=== PATIENT | male | born 1965 | race Caucasian/White ===

== ENCOUNTER 2017-04-02 15:38 | Emergency (ER) | payer MEDICARE ==
[2017-04-02 15:52] VITALS: BP 130/75; PULSE 86; RESP 16; TEMP 98
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
[2017-04-02] MEDS ORDERED: DIPH,PERTUS(ACELL)TETVAC-LF 0.5 ML VIAL IM ONE (16:13)
== END 2017-04-02 16:56 | disposition home or self-care (01) ==
LOC: EC 15:38
DX: T24.231A Burn of second degree of right lower leg, initial encounter (principal); T31.0 Burns involving less than 10% of body surface; E11.9 Type 2 diabetes mellitus without complications; I10 Essential (primary) hypertension; F32.9 Major depressive disorder, single episode, unspecified; F17.200 Nicotine dependence, unspecified, uncomplicated; Z23 Encounter for immunization; Z79.84 Long term (current) use of oral hypoglycemic drugs; Z79.899 Other long term (current) drug therapy; Z88.5 Allergy status to narcotic agent; X19.XXXA Contact with other heat and hot substances, initial encounter
CPT/HCPCS: 16020; 90471; 90715; 99283

== ENCOUNTER → 2018-11-05 | Outpatient (CLI) | payer MEDICARE ==
[2018-11-05 17:22] LABS: HCT 34.3 % (39.0-53.0); HGB 11.1 gm/dL (13.0-17.5); MCH 26.8 pg (25.0-35.0); MCHC 32.4 g/dL (31.0-37.0); MCV 82.7 fL (80.0-100.0); Mean Platelet Volume 6.9; Platelet Count 257 k/uL (150-450); RBC 4.14 m/uL (4.30-5.90); RDW 14.9 % (11.5-15.5); WBC 9.7 k/uL (3.8-10.6)
[2018-11-05 17:39] LABS: Appearance,Urine Clear (Clear); Bacteria,Urine Rare /hpf; Bilirubin,Urine Negative (Negative); Blood,Urine Negative (Negative); Color,Urine Light Yellow; Glucose,Urine (UA) Negative (Negative); Ketones,Urine Negative (Negative); Leukocyte Esterase,Urine Negative (Negative); Nitrite,Urine Negative (Negative); PH, Urine 5.5 (5.0-8.0); Protein,Urine 1+ (Negative); RBC,Urine 1 /hpf (0-5); Specific Gravity,Urine 1.007 (1.001-1.035); Squamous Epithelial Cell,Urine <1 /hpf (0-4); Urobilinogen,Urine <2.0 mg/dL (<2.0); WBC,Urine 3 /hpf (0-5)
[2018-11-06 02:53] LABS: Albumin 4.6 g/dL (3.80-4.90); Albumin/Globulin Ratio 2.19 (1.20-2.10); Anion Gap 9.7 mmol/L (4.00-12.00); Calcium 9.1 mg/dL (8.7-10.3); Carbon Dioxide 24.3 mmol/L (21.6-31.8); Globulin 2.1 g/dL (1.6-3.3); Phosphorus 3.5 mg/dL (2.4-5.1); Potassium 4.5 mmol/L (3.5-5.5); Total Bilirubin 0.3 mg/dL (0.3-1.2); Total Protein 6.7 g/dL (6.2-8.2)
== END ==
LOC: LABWHC1 16:49
PROVIDERS: ATTEND Internal Medicine Nephrology
DX: D64.9 Anemia, unspecified (principal); E83.39 Other disorders of phosphorus metabolism; N39.0 Urinary tract infection, site not specified
CPT/HCPCS: 36415; 80053; 81001; 84100; 85027

== ENCOUNTER 2018-12-10 13:46 | Emergency (ER) | payer MEDICARE ==
[2018-12-10 13:51] VITALS: BP 164/78; PULSE 78; RESP 22; TEMP 97.5
[2018-12-10] MEDS ORDERED: NITROGLYCERIN SL TABS 0.4 MG TAB SUBLINGUAL STA (14:32)
[2018-12-10] MEDS ORDERED: GLUCAGON 1 MG/ML VIAL IVP STA (14:32)
[2018-12-10] MEDS ORDERED: LORazepam 2 MG/ML INJ IV STA (14:32)
[2018-12-10] MEDS ORDERED: ONDANSETRON 4 MG/2 ML VIAL IVP STA (14:34)
--- NOTE | 2018-12-10 14:43 | XR ---
EXAMINATION TYPE: XR chest 2V DATE OF EXAM: 12/10/2018 COMPARISON: 06/12/2014 HISTORY: Chest pain TECHNIQUE: Frontal and lateral views of the chest are obtained. 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 Cardia mediastinal silhouette is upper limits of normal in size. There is no focal air space opacity, pleural effusion, or pneumothorax seen. Mild mu ltilevel degenerative changes of the spine are noted. The osseous structures are intact. IMPRESSION: No acute cardiopulmonary process.
[2018-12-10 14:55] LABS: Albumin 3.9 g/dL (3.5-5.0); Basophils # (A) 0.1 k/uL (0-0.2); Basophils % (A) 1 %; Calcium 9.5 mg/dL (8.4-10.2); Eosinophils # (A) 0.3 k/uL (0-0.7); Eosinophils % (A) 4 %; HCT 32.5 % (39.0-53.0); HGB 10.5 gm/dL (13.0-17.5); Lymphocytes # (A) 2.5 k/uL (1.0-4.8); Lymphocytes % (A) 31 %; MCH 26.5 pg (25.0-35.0); MCHC 32.5 g/dL (31.0-37.0); MCV 81.8 fL (80.0-100.0); Magnesium 1.7 mg/dL (1.6-2.3); Mean Platelet Volume 6.2; Monocytes # (A) 0.4 k/uL (0-1.0); Monocytes % (A) 5 %; Neutrophils # (A) 4.7 k/uL (1.3-7.7); Neutrophils % (A) 58 %; Platelet Count 221 k/uL (150-450); Potassium 4.3 mmol/L (3.5-5.1); RBC 3.97 m/uL (4.30-5.90); RDW 15.2 % (11.5-15.5); Total Bilirubin 0.3 mg/dL (0.2-1.3); Total Protein 6.6 g/dL (6.3-8.2); WBC 8.1 k/uL (3.8-10.6)
[2018-12-10 14:58] LABS: INR 0.9 (<1.2); Partial Thromboplastin Time 24.2 sec (22.0-30.0); Prothrombin Time 9.9 sec (9.0-12.0)
--- NOTE | 2018-12-10 15:01 | ED ---
Abdominal Pain HPI - General Chief Complaint: Chest Pain Stated Complaint: Something stuck in band, chest pain Time Seen by Provider: 12/10/18 14:00 Source: patient Mode of arrival: ambulatory Limitations: no limitations - History of Present Illness MD Complaint: abdominal pain (Foreign body sensation in esophagus) -: hour(s) Radiation: epigastric Migration to: no migration Severity: severe Severity scale (1-10): 8 Quality: aching, fullness Consistency: constant Improves With: nothing Worsens With: eating, vomiting Associated Symptoms: nausea, vomiting - Related Data Home Medications Medication Instructions Recorded Confirmed PARoxetine HCL [Paxil] 40 mg PO DAILY 04/29/14 12/10/18 Ramipril [Altace] 5 mg PO DAILY 09/14/14 12/10/18 amLODIPine [Norvasc] 10 mg PO DAILY 09/14/14 12/10/18 HYDROcodone/APAP 10-325MG [[place] 1 tab PO Q6H PRN 08/24/16 12/10/18 10-325] Ibuprofen [Motrin] 800 mg PO Q8HR PRN 08/24/16 12/10/18 metFORMIN HCL 1,000 mg PO BID 08/24/16 12/10/18 Zolpidem [Ambien] 10 mg PO HS PRN 04/02/17 12/10/18 Allergies Allergy/AdvReac Type Severity Reaction Status Date / Time hydromorphone HCl Allergy Hallucinati Verified 12/10/18 14:16 [From Dilaudid] ons meperidine HCl [From Demerol] Allergy Unknown Verified 12/10/18 14:16 Review of Systems ROS Statement: Those systems with pertinent positive or pertinent negative responses have been documented in the HPI. ROS Other: All systems not noted in ROS Statement are negative. Past Medical History Past Medical History: Diabetes Mellitus, Hypertension Additional Past Medical History / Comment(s): gout, chronic back/hip pain History of Any Multi-Drug Resistant Organisms: None Reported Past Surgical History: Orthopedic Surgery Additional Past Surgical History / Comment(s): thymus gland removal, HIP SURGERY., lap band by bout Past Psychological History: Depression Smoking Status: Current every day smoker Past Alcohol Use History: None Reported Past Drug Use History: None Reported General Exam Limitations: no limitations General appearance: alert, in no apparent distress Head exam: Present: atraumatic, normocephalic, normal inspection Eye exam: Present: normal appearance, PERRL, EOMI. Absent: scleral icterus, conjunctival injection, periorbital swelling ENT exam: Present: normal exam, mucous membranes moist Neck exam: Present: normal inspection. Absent: tenderness, meningismus, lymphadenopathy Respiratory exam: Present: normal lung sounds bilaterally. Absent: respiratory distress, wheezes, rales, rhonchi, stridor Cardiovascular Exam: Present: regular rate, normal rhythm, normal heart sounds. Absent: systolic murmur, diastolic murmur, rubs, gallop, clicks GI/Abdominal exam: Present: soft, normal bowel sounds. Absent: distended, tenderness, guarding, rebound, rigid Extremities exam: Present: normal inspection, full ROM, normal capillary refill. Absent: tenderness, pedal edema, joint swelling, calf tenderness Back exam: Present: normal inspection Neurological exam: Present: alert, oriented X3, CN II-XII intact Psychiatric exam: Present: normal affect, normal mood Skin exam: Present: warm, dry, intact, normal color. Absent: rash Course Vital Signs 12/10/18 13:49 Temperature 97.5 F L Pulse Rate 78 Respiratory 22 Rate Blood Pressure 164/78 O2 Sat by Pulse 96 Oximetry - Reevaluation(s) Reevaluation #1: 12/10/18 15:23 Patient did pass foreign body will getting x-ray. Reevaluation #2: 12/10/18 15:24 Patient is tolerate waiting drinking water currently Medical Decision Making - Medical Decision Making 83 male the ER for evaluation of esophageal foreign body. Foreign bodies resolved and patient can be discharged - Lab Data Result diagrams: 12/10/18 14:29 12/10/18 14:29 Lab Results 12/10/18 12/10/18 12/10/18 Range/Units 14:29 14:29 14:29 WBC 8.1 (3.8-10.6) k/uL RBC 3.97 L (4.30-5.90) m/uL Hgb 10.5 L (13.0-17.5) gm/dL Hct 32.5 L (39.0-53.0) % MCV 81.8 (80.0-100.0) fL MCH 26.5 (25.0-35.0) pg MCHC 32.5 (31.0-37.0) g/dL RDW 15.2 (11.5-15.5) % Plt Count 221 (150-450) k/uL Neutrophils % 58 % Lymphocytes % 31 % Monocytes % 5 % Eosinophils % 4 % Basophils % 1 % Neutrophils # 4.7 (1.3-7.7) k/uL Lymphocytes # 2.5 (1.0-4.8) k/uL Monocytes # 0.4 (0-1.0) k/uL Eosinophils # 0.3 (0-0.7) k/uL Basophils # 0.1 (0-0.2) k/uL PT (9.0-12.0) sec INR (<1.2) APTT (22.0-30.0) sec Sodium 137 (137-145) mmol/L Potassium 4.3 (3.5-5.1) mmol/L Chloride 108 H (98-107) mmol/L Carbon Dioxide 21 L (22-30) mmol/L Anion Gap 8 mmol/L BUN 22 H (9-20) mg/dL Creatinine 1.15 (0.66-1.25) mg/dL Est GFR (CKD-EPI)AfAm 83 (>60 ml/min/1.73 sqM) Est GFR (CKD-EPI)NonAf 72 (>60 ml/min/1.73 sqM) Glucose 110 H (74-99) mg/dL Calcium 9.5 (8.4-10.2) mg/dL Magnesium 1.7 (1.6-2.3) mg/dL Total Bilirubin 0.3 (0.2-1.3) mg/dL AST 16 L (17-59) U/L ALT 36 (21-72) U/L Alkaline Phosphatase 86 (38-126) U/L Total Creatine Kinase 58 (55-170) U/L Total Protein 6.6 (6.3-8.2) g/dL Albumin 3.9 (3.5-5.0) g/dL 12/10/18 Range/Units 14:29 WBC (3.8-10.6) k/uL RBC (4.30-5.90) m/uL Hgb (13.0-17.5) gm/dL Hct (39.0-53.0) % MCV (80.0-100.0) fL MCH (25.0-35.0) pg MCHC (31.0-37.0) g/dL RDW (11.5-15.5) % Plt Count (150-450) k/uL Neutrophils % % Lymphocytes % % Monocytes % % Eosinophils % % Basophils % % Neutrophils # (1.3-7.7) k/uL Lymphocytes # (1.0-4.8) k/uL Monocytes # (0-1.0) k/uL Eosinophils # (0-0.7) k/uL Basophils # (0-0.2) k/uL PT 9.9 (9.0-12.0) sec INR 0.9 (<1.2) APTT 24.2 (22.0-30.0) sec Sodium (137-145) mmol/L Potassium (3.5-5.1) mmol/L Chloride (98-107) mmol/L Carbon Dioxide (22-30) mmol/L Anion Gap mmol/L BUN (9-20) mg/dL Creatinine (0.66-1.25) mg/dL Est GFR (CKD-EPI)AfAm (>60 ml/min/1.73 sqM) Est GFR (CKD-EPI)NonAf (>60 ml/min/1.73 sqM) Glucose (74-99) mg/dL Calcium (8.4-10.2) mg/dL Magnesium (1.6-2.3) mg/dL Total Bilirubin (0.2-1.3) mg/dL AST (17-59) U/L ALT (21-72) U/L Alkaline Phosphatase (38-126) U/L Total Creatine Kinase (55-170) U/L Total Protein (6.3-8.2) g/dL Albumin (3.5-5.0) g/dL - Radiology Data Radiology results: report reviewed (Chest x-rays negative for acute disease), image reviewed Disposition Clinical Impression: Esophageal foreign body, Acute non-ST segment elevation myocardial infarction ( STEMI) following previous myocardial infarction Disposition: HOME SELF-CARE Condition: Good Instructions (If sedation given, give patient instructions): Esophageal Foreign Body (ED) Is patient prescribed a controlled substance at d/c from ED?: No Referrals: Perez Pennington MD [Primary Care Provider] - 1-2 days
[2018-12-10 15:10] LABS: Creatine Kinase 58 U/L (55-170)
[2018-12-10 15:23] LABS: Creatine Kinase MB 0.6 ng/mL (0.0-2.4); Troponin I <0.012 ng/mL (0.000-0.034)
== END 2018-12-10 16:21 | disposition home or self-care (01) ==
LOC: EC 13:46
DX: I21.4 Non-ST elevation (NSTEMI) myocardial infarction (principal); T18.108A Unspecified foreign body in esophagus causing other injury, initial encounter; E11.9 Type 2 diabetes mellitus without complications; I10 Essential (primary) hypertension; F32.9 Major depressive disorder, single episode, unspecified; F17.200 Nicotine dependence, unspecified, uncomplicated; Z79.899 Other long term (current) drug therapy; Z79.84 Long term (current) use of oral hypoglycemic drugs; Z88.5 Allergy status to narcotic agent
CPT/HCPCS: 36415; 71046; 80053; 82550; 82553; 83735; 84484; 85025; 85610; 85730; 93005; 99285

== ENCOUNTER 2019-07-12 12:29 | Emergency (ER) | payer MEDICARE ==
[2019-07-12 12:34] VITALS: RESP 18
[2019-07-12] MEDS ORDERED: HYDROcodone/APAP 7.5-325MG 1 EACH TAB PO ONE (12:41)
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
[2019-07-12 13:14] LABS: Anisocytosis Slight; Basophils # (A) 0.1 k/uL (0-0.2); Basophils % (A) 1 %; Eosinophils # (A) 0.2 k/uL (0-0.7); Eosinophils % (A) 3 %; HCT 31.5 % (39.0-53.0); HGB 10.6 gm/dL (13.0-17.5); Lymphocytes # (A) 1.6 k/uL (1.0-4.8); Lymphocytes % (A) 24 %; MCH 27.9 pg (25.0-35.0); MCHC 33.7 g/dL (31.0-37.0); MCV 82.7 fL (80.0-100.0); Mean Platelet Volume 7.1; Monocytes # (A) 0.3 k/uL (0-1.0); Monocytes % (A) 5 %; Neutrophils # (A) 4.2 k/uL (1.3-7.7); Neutrophils % (A) 64 %; Platelet Count 197 k/uL (150-450); Poikilocytosis Slight; RBC 3.81 m/uL (4.30-5.90); RDW 16.6 % (11.5-15.5); WBC 6.6 k/uL (3.8-10.6)
[2019-07-12 13:23] LABS: African American GFR (CKD) >90 (>60 ml/min/1.73 sqM); Anion Gap 10 mmol/L; Blood Urea Nitrogen 14 mg/dL (9-20); Calcium 9.2 mg/dL (8.4-10.2); Carbon Dioxide 22 mmol/L (22-30); Chloride 106 mmol/L (98-107); Glucose 127 mg/dL (74-99); Sodium 138 mmol/L (137-145)
--- NOTE | 2019-07-12 13:38 | US ---
EXAMINATION TYPE: US venous doppler duplex LE RT DATE OF EXAM: 07/12/2019 1:20 PM COMPARISON: NONE CLINICAL HISTORY: pain. Pain and edema. SIDE PERFORMED: Right TECHNIQUE: The lower extremity deep venous system is examined utilizing real time linear array sonog stephen with graded compression, doppler sonography and color-flow sonography. VESSELS IMAGED: External Iliac Vein (EIV) Common Femoral Vein Deep Femoral Vein Greater Saphenous Vein * Femoral Vein Popliteal Vein Small Saphenous Vein * Proximal Calf Veins (* superficial vessels) Right Leg: Negative for DVT Grayscale, color doppler, spectral doppler imaging performed of the deep veins of the right lower ext remity. There is normal flow, compressibility, vascular waveforms. IMPRESSION: No sonographic evidence of deep venous thrombosis within the right lower extremity.
[2019-07-12] MEDS ORDERED: ONDANSETRON 4 MG/2 ML VIAL IVP STA (14:03)
[2019-07-12] MEDS ORDERED: cefTRIAXone IN SWFI 1,000 MG/10 ML SYRINGE IVP STA (14:03)
[2019-07-12] MEDS ORDERED: KETOROLAC 30 MG/ML 1 ML VIAL IVP STA (14:05)
[2019-07-12 14:24] VITALS: BP 118/72; PULSE 80; TEMP 97.7
== END 2019-07-12 14:30 | disposition home or self-care (01) ==
LOC: EC 12:29
DX: L03.115 Cellulitis of right lower limb (principal); I10 Essential (primary) hypertension; E11.9 Type 2 diabetes mellitus without complications; F32.9 Major depressive disorder, single episode, unspecified; F17.200 Nicotine dependence, unspecified, uncomplicated; Z88.5 Allergy status to narcotic agent; Z79.84 Long term (current) use of oral hypoglycemic drugs; Z79.899 Other long term (current) drug therapy
CPT/HCPCS: 36415; 80048; 83605; 85025; 87040; 93971; 99284; 96374; 96375 ×2; J2405; J0696; J1885

== ENCOUNTER → 2019-09-10 | Outpatient (CLI) | payer MEDICARE ==
--- NOTE | 2019-09-11 14:29 | CT ---
EXAMINATION TYPE: CT brain wo con DATE OF EXAM: 09/10/2019 COMPARISON: 08/24/2016 INDICATION: Headaches DLP: 1251 mGycm, Automated exposure control for dose reduction was used. CONTRAST: None CT of the brain is performed utilizing 3 mm thick sections through the posterior fossa and 3 mm thick sections through the remaining calvarium. Study is performed within 24 hours of arrival to the hosp [facility]. No abnormal hyperdensity is present to suggest an acute intracranial hemorrhage. No mass lesion is evident. No acute infarcts are evident. Ventricles and sulci are appropriate for the patient age. Paranasal sinuses and mastoid air cells within the [id number] are clear. IMPRESSIONS: 1. Normal CT Brain 2. No significant interval change
== END ==
LOC: RADCTMAIN 14:45
PROVIDERS: ATTEND Family Medicine
DX: G44.221 Chronic tension-type headache, intractable (principal); R26.81 Unsteadiness on feet
CPT/HCPCS: 70450

== ENCOUNTER → 2020-08-31 | Outpatient (CLI) | payer MEDICARE | END | disposition home or self-care (01) | LOC: LABWHC1 15:14 | PROVIDERS: ATTEND Family Medicine | DX: R06.02 Shortness of breath (principal); R51.9 Headache, unspecified | CPT/HCPCS: U0003; C9803 ==

== ENCOUNTER 2020-11-12 22:40 | Inpatient (IN) | payer MEDICARE ==
[2020-11-12 23:04] LABS: Glucose,Whole Blood 582 mg/dL (75-99)
[2020-11-12] MEDS ORDERED: SODIUM CHLORIDE 0.9% 1,000 ML IV STA ×2 (23:19)
--- NOTE | 2020-11-12 23:24 | ED ---
General Adult HPI - General Chief complaint: Recheck/Abnormal Lab/Rx Stated complaint: High Sugar Time Seen by Provider: 11/12/20 22:51 Source: patient, RN notes reviewed Mode of arrival: wheelchair Limitations: no limitations - History of Present Illness Initial comments: 55-year-old male with a past medical history of gout, hypertension, diabetes mellitus, multiple myeloma presents to the emergency room for high blood sugar. Patient reports he started on chemotherapy and dexamethasone today for multiple myeloma. States that afterwards he felt very tired and started to have frequent urination and increased thirst. Patient reports that he has been told he was diabetic in the past but does not take any medications for this. States that he checked his glucose at home and it was over 600, his meter just read high. Patient states that home health did bring him insulin but did not teach him how to administer this. He does not take any oral medications either for diabetes. He called his oncologist's office and Dr. Lucero recommended he come into the emergency room. His personal oncologist is Dr. Méndez. Patient has no other complaints at this time including shortness of breath, chest pain, abdominal pain, nausea or vomiting, headache, or visual changes. - Related Data Home Medications Medication Instructions Recorded Confirmed PARoxetine HCL [Paxil] 40 mg PO DAILY 04/29/14 11/12/20 amLODIPine [Norvasc] 10 mg PO DAILY 09/14/14 11/12/20 ramipriL [Altace] 5 mg PO DAILY 09/14/14 11/12/20 HYDROcodone/APAP 10-325MG [[place] 1 tab PO Q6H PRN 08/24/16 11/12/20 10-325] Ibuprofen [Motrin] 800 mg PO Q8HR PRN 08/24/16 11/12/20 Zolpidem [Ambien] 10 mg PO HS 04/02/17 11/12/20 Allergies Allergy/AdvReac Type Severity Reaction Status Date / Time hydromorphone HCl Allergy Hallucinati Verified 11/12/20 12:57 [From Dilaudid] ons meperidine HCl [From Demerol] Allergy Hallucinati Verified 11/12/20 12:57 ons Review of Systems ROS Statement: Those systems with pertinent positive or pertinent negative responses have been documented in the HPI. ROS Other: All systems not noted in ROS Statement are negative. Past Medical History Past Medical History: Cancer, Diabetes Mellitus, Hypertension Additional Past Medical History / Comment(s): gout, chronic back/hip pain, multiple mylemo History of Any Multi-Drug Resistant Organisms: None Reported Past Surgical History: Orthopedic Surgery Additional Past Surgical History / Comment(s): thymus gland removal, HIP SURGERY., lap band by boutt Past Psychological History: Depression Smoking Status: Current every day smoker Past Alcohol Use History: None Reported Past Drug Use History: None Reported General Exam Limitations: no limitations General appearance: alert Head exam: Present: atraumatic Eye exam: Present: normal appearance ENT exam: Present: normal exam, mucous membranes moist Neck exam: Present: normal inspection, full ROM. Absent: tenderness Respiratory exam: Present: normal lung sounds bilaterally. Absent: respiratory distress Cardiovascular Exam: Present: regular rate, normal rhythm, normal heart sounds GI/Abdominal exam: Present: soft. Absent: distended, tenderness Neurological exam: Present: alert Course Vital Signs 11/12/20 11/13/20 11/13/20 22:41 01:49 02:43 Temperature 98.0 F 99.1 F Pulse Rate 98 84 87 Respiratory 20 20 18 Rate Blood Pressure 168/79 132/67 121/67 O2 Sat by Pulse 97 98 97 Oximetry Medical Decision Making - Medical Decision Making Vitals are stable. CBC unremarkable. CMP does show evidence of hyperglycemia and pseudohyponatremia. Urinalysis does have 1+ ketones however gap is 13. Patient was given 3 L of fluid and insulin and did not have significant improvement and glucose. It went from 584 12/06/2015. I discussed with patient that as he does not have a history of this recommend admit for management. Patient is eventually agreeable to this. - Lab Data Result diagrams: 11/12/20 23:29 11/12/20 23:29 Lab Results 11/12/20 11/12/20 11/12/20 Range/Units 23:03 23:29 23:29 WBC 7.5 (3.8-10.6) k/uL RBC 3.52 L (4.30-5.90) m/uL Hgb 10.2 L (13.0-17.5) gm/dL Hct 29.7 L (39.0-53.0) % MCV 84.4 (80.0-100.0) fL MCH 28.9 (25.0-35.0) pg MCHC 34.3 (31.0-37.0) g/dL RDW 16.4 H (11.5-15.5) % Plt Count 214 (150-450) k/uL MPV 6.8 Neutrophils % 83 % Lymphocytes % 11 % Monocytes % 4 % Eosinophils % 1 % Basophils % 1 % Neutrophils # 6.2 (1.3-7.7) k/uL Lymphocytes # 0.8 L (1.0-4.8) k/uL Monocytes # 0.3 (0-1.0) k/uL Eosinophils # 0.1 (0-0.7) k/uL Basophils # 0.0 (0-0.2) k/uL Hypochromasia Slight Poikilocytosis Moderate Anisocytosis Slight Sodium 128 L (137-145) mmol/L Potassium 5.1 (3.5-5.1) mmol/L Chloride 100 (98-107) mmol/L Carbon Dioxide 15 L (22-30) mmol/L Anion Gap 13 mmol/L BUN 29 H (9-20) mg/dL Creatinine 1.19 (0.66-1.25) mg/dL Est GFR (CKD-EPI)AfAm 78 (>60 ml/min/1.73 sqM) Est GFR (CKD-EPI)NonAf 68 (>60 ml/min/1.73 sqM) Glucose 584 H* (74-99) mg/dL POC Glucose (mg/dL) 582 H (75-99) mg/dL POC Glu Transportation Clerk ID Trinidad Sheehan Osmolality 306 H (280-301) mosm/kg Calcium 9.3 (8.4-10.2) mg/dL Magnesium 1.9 (1.6-2.3) mg/dL Total Bilirubin 0.5 (0.2-1.3) mg/dL AST 19 (17-59) U/L ALT 20 (4-49) U/L Alkaline Phosphatase 128 H (38-126) U/L Total Protein 6.7 (6.3-8.2) g/dL Albumin 4.2 (3.5-5.0) g/dL Urine Color Urine Appearance (Clear) Urine pH (5.0-8.0) Ur Specific [place] (1.001-1.035) Urine Protein (Negative) Urine Glucose (UA) (Negative) Urine Ketones (Negative) Urine Blood (Negative) Urine Nitrite (Negative) Urine Bilirubin (Negative) Urine Urobilinogen (<2.0) mg/dL Ur Leukocyte Esterase (Negative) Acetone, Qual Negative (Negative) Coronavirus (PCR) (Not Detectd) 11/12/20 11/12/20 11/13/20 Range/Units 23:29 23:42 00:28 WBC (3.8-10.6) k/uL RBC (4.30-5.90) m/uL Hgb (13.0-17.5) gm/dL Hct (39.0-53.0) % MCV (80.0-100.0) fL MCH (25.0-35.0) pg MCHC (31.0-37.0) g/dL RDW (11.5-15.5) % Plt Count (150-450) k/uL MPV Neutrophils % % Lymphocytes % % Monocytes % % Eosinophils % % Basophils % % Neutrophils # (1.3-7.7) k/uL Lymphocytes # (1.0-4.8) k/uL Monocytes # (0-1.0) k/uL Eosinophils # (0-0.7) k/uL Basophils # (0-0.2) k/uL Hypochromasia Poikilocytosis Anisocytosis Sodium (137-145) mmol/L Potassium (3.5-5.1) mmol/L Chloride (98-107) mmol/L Carbon Dioxide (22-30) mmol/L Anion Gap mmol/L BUN (9-20) mg/dL Creatinine (0.66-1.25) mg/dL Est GFR (CKD-EPI)AfAm (>60 ml/min/1.73 sqM) Est GFR (CKD-EPI)NonAf (>60 ml/min/1.73 sqM) Glucose (74-99) mg/dL POC Glucose (mg/dL) 561 H (75-99) mg/dL POC Glu Transportation Clerk ID Janine Dacosta Osmolality (280-301) mosm/kg Calcium (8.4-10.2) mg/dL Magnesium (1.6-2.3) mg/dL Total Bilirubin (0.2-1.3) mg/dL AST (17-59) U/L ALT (4-49) U/L Alkaline Phosphatase (38-126) U/L Total Protein (6.3-8.2) g/dL Albumin (3.5-5.0) g/dL Urine Color Colorless Urine Appearance Clear (Clear) Urine pH 5.5 (5.0-8.0) Ur Specific [place] 1.022 (1.001-1.035) Urine Protein Trace H (Negative) Urine Glucose (UA) 4+ H (Negative) Urine Ketones 1+ H (Negative) Urine Blood Negative (Negative) Urine Nitrite Negative (Negative) Urine Bilirubin Negative (Negative) Urine Urobilinogen <2.0 (<2.0) mg/dL Ur Leukocyte Esterase Negative (Negative) Acetone, Qual (Negative) Coronavirus (PCR) Not Detected (Not Detectd) 11/13/20 11/13/20 Range/Units 01:38 02:39 WBC (3.8-10.6) k/uL RBC (4.30-5.90) m/uL Hgb (13.0-17.5) gm/dL Hct (39.0-53.0) % MCV (80.0-100.0) fL MCH (25.0-35.0) pg MCHC (31.0-37.0) g/dL RDW (11.5-15.5) % Plt Count (150-450) k/uL MPV Neutrophils % % Lymphocytes % % Monocytes % % Eosinophils % % Basophils % % Neutrophils # (1.3-7.7) k/uL Lymphocytes # (1.0-4.8) k/uL Monocytes # (0-1.0) k/uL Eosinophils # (0-0.7) k/uL Basophils # (0-0.2) k/uL Hypochromasia Poikilocytosis Anisocytosis Sodium (137-145) mmol/L Potassium (3.5-5.1) mmol/L Chloride (98-107) mmol/L Carbon Dioxide (22-30) mmol/L Anion Gap mmol/L BUN (9-20) mg/dL Creatinine (0.66-1.25) mg/dL Est GFR (CKD-EPI)AfAm (>60 ml/min/1.73 sqM) Est GFR (CKD-EPI)NonAf (>60 ml/min/1.73 sqM) Glucose (74-99) mg/dL POC Glucose (mg/dL) 499 H 416 H (75-99) mg/dL POC Glu Transportation Clerk ID Bambi Almanzar Brittany Osmolality (280-301) mosm/kg Calcium (8.4-10.2) mg/dL Magnesium (1.6-2.3) mg/dL Total Bilirubin (0.2-1.3) mg/dL AST (17-59) U/L ALT (4-49) U/L Alkaline Phosphatase (38-126) U/L Total Protein (6.3-8.2) g/dL Albumin (3.5-5.0) g/dL Urine Color Urine Appearance (Clear) Urine pH (5.0-8.0) Ur Specific [place] (1.001-1.035) Urine Protein (Negative) Urine Glucose (UA) (Negative) Urine Ketones (Negative) Urine Blood (Negative) Urine Nitrite (Negative) Urine Bilirubin (Negative) Urine Urobilinogen (<2.0) mg/dL Ur Leukocyte Esterase (Negative) Acetone, Qual (Negative) Coronavirus (PCR) (Not Detectd) Disposition Clinical Impression: Hyperglycemia Disposition: ADMITTED IP TO THIS HOSP Is patient prescribed a controlled substance at d/c from ED?: No Referrals: Perez Pennington MD [Primary Care Provider] - 1-2 days Time of Disposition: 03:10
[2020-11-12 23:39] LABS: Anisocytosis Slight; Basophils % (A) 1 %; Eosinophils # (A) 0.1 k/uL (0-0.7); Eosinophils % (A) 1 %; HCT 29.7 % (39.0-53.0); HGB 10.2 gm/dL (13.0-17.5); Hypochromasia Slight; Lymphocytes # (A) 0.8 k/uL (1.0-4.8); Lymphocytes % (A) 11 %; MCH 28.9 pg (25.0-35.0); MCHC 34.3 g/dL (31.0-37.0); MCV 84.4 fL (80.0-100.0); Mean Platelet Volume 6.8; Monocytes # (A) 0.3 k/uL (0-1.0); Monocytes % (A) 4 %; Neutrophils # (A) 6.2 k/uL (1.3-7.7); Neutrophils % (A) 83 %; Platelet Count 214 k/uL (150-450); Poikilocytosis Moderate; RBC 3.52 m/uL (4.30-5.90); RDW 16.4 % (11.5-15.5); WBC 7.5 k/uL (3.8-10.6)
[2020-11-12 23:57] LABS: ALT 20 U/L (4-49); AST 19 U/L (17-59); African American GFR (CKD) 78 (>60 ml/min/1.73 sqM); Albumin 4.2 g/dL (3.5-5.0); Alkaline Phosphatase 128 U/L (38-126); Anion Gap 13 mmol/L; Blood Urea Nitrogen 29 mg/dL (9-20); Calcium 9.3 mg/dL (8.4-10.2); Carbon Dioxide 15 mmol/L (22-30); Chloride 100 mmol/L (98-107); Magnesium 1.9 mg/dL (1.6-2.3); Non-African American GFR(CKD) 68 (>60 ml/min/1.73 sqM); Potassium 5.1 mmol/L (3.5-5.1); Sodium 128 mmol/L (137-145); Total Bilirubin 0.5 mg/dL (0.2-1.3); Total Protein 6.7 g/dL (6.3-8.2)
[2020-11-13 00:11] LABS: Glucose 584 mg/dL (74-99)
[2020-11-13 00:14] LABS: Appearance,Urine Clear (Clear); Bilirubin,Urine Negative (Negative); Blood,Urine Negative (Negative); Color,Urine Colorless; Glucose,Urine (UA) 4+ (Negative); Ketones,Urine 1+ (Negative); Leukocyte Esterase,Urine Negative (Negative); Nitrite,Urine Negative (Negative); PH, Urine 5.5 (5.0-8.0); Protein,Urine Trace (Negative); Specific Gravity,Urine 1.022 (1.001-1.035); Urobilinogen,Urine <2.0 mg/dL (<2.0)
[2020-11-13 00:30] LABS: Glucose,Whole Blood 561 mg/dL (75-99)
[2020-11-13] MEDS ORDERED: INSULIN REGULAR 100 UNIT/ML VIAL IV STA ×2 (00:45→01:40)
[2020-11-13 01:40] LABS: Glucose,Whole Blood 499 mg/dL (75-99)
[2020-11-13] MEDS ORDERED: INSULIN ASPART (NovoLOG) 100 UNIT/ML VIAL SQ STA (01:40)
[2020-11-13] MEDS ORDERED: SODIUM CHLORIDE 0.9% 1,000 ML IV STA (01:40)
[2020-11-13 02:40] LABS: Glucose,Whole Blood 416 mg/dL (75-99)
[2020-11-13] MEDS ORDERED: NALOXONE 0.4 MG/ML 1 ML VIAL IV PRN (03:10)
[2020-11-13 03:18] LABS: Glucose,Whole Blood 417 mg/dL (75-99)
[2020-11-13] MEDS: SODIUM CHLORIDE 0.9% 1,000 ML IV SCH ×3 (05:02→23:16)
[2020-11-13 06:54] LABS: Glucose,Whole Blood 464 mg/dL (75-99)
[2020-11-13] MEDS: INSULIN ASPART (NovoLOG) 100 UNIT/ML VIAL SQ SCH ×4 (07:51→19:26)
[2020-11-13 11:34] LABS: Glucose,Whole Blood 422 mg/dL (75-99)
[2020-11-13] MEDS ORDERED: ONDANSETRON ODT 4 MG TAB PO PRN (12:39)
--- NOTE | 2020-11-13 12:39 | P.HPIM ---
History of Present Illness H&P Date: 11/13/20 Chief Complaint: Hyperglycemia. This is a history and physical on a 55-year-ing chemotherapeutic treatment wit and has not been struggling with elevated blood s. Oncology has been counseled to. The curtis quite reluctant to continue dexamethasone. But I did advise the patient that any further treatment lizzie decrease his overall prognosis improvement or give him untoward side effects. Blood sugars in the 400s and 500s recently. Review of Systems Constitutional: Denies chills, Denies fever Eyes: denies blurred vision, denies pain Ears, nose, mouth and throat: Denies headache, Denies sore throat Cardiovascular: Denies chest pain, Denies shortness of breath Gastrointestinal: Denies abdominal pain, Denies diarrhea, Denies nausea, Denies vomiting Musculoskeletal: Denies myalgias Past Medical History Past Medical History: Cancer, Diabetes Mellitus, Hypertension Additional Past Medical History / Comment(s): gout, chronic back/L hip pain, multiple mylemo, 2012 L hip surgery History of Any Multi-Drug Resistant Organisms: None Reported Past Surgical History: Orthopedic Surgery Additional Past Surgical History / Comment(s): thymus gland removal, HIP SURGERY., lap band by domo 2009 Past Anesthesia/Blood Transfusion Reactions: No Reported Reaction Past Psychological History: Depression Smoking Status: Current every day smoker Past Alcohol Use History: None Reported Past Drug Use History: None Reported Medications and Allergies Home Medications Medication Instructions Recorded Confirmed Type PARoxetine HCL [Paxil] 40 mg PO DAILY 04/29/14 11/13/20 History amLODIPine [Norvasc] 10 mg PO DAILY 09/14/14 11/13/20 History ramipriL [Altace] 5 mg PO DAILY 09/14/14 11/13/20 History HYDROcodone/APAP 10-325MG [[place] 1 tab PO QID 08/24/16 11/13/20 History 10-325] Ibuprofen [Motrin] 800 mg PO QID 08/24/16 11/13/20 History Zolpidem [Ambien] 10 mg PO HS 04/02/17 11/13/20 History Dexamethasone [Decadron] 40 mg PO MO 11/13/20 11/13/20 History Lenalidomide [Revlimid] 25 mg PO DIRECTED 11/13/20 11/13/20 History Ondansetron [Zofran ODT] 4 mg PO Q6H PRN 11/13/20 11/13/20 History SILVER sulfADIAZINE Cream 0.0625 inch TOPICAL DAILY PRN 11/13/20 11/13/20 History [Silvadene 1% Cream] Sulfamethox-Tmp 800-160Mg [Bact[place] 1 tab PO MOWEFR 11/13/20 11/13/20 History DS 800-160 mg] Allergies Allergy/AdvReac Type Severity Reaction Status Date / Time hydromorphone HCl AdvReac Hallucinati Verified 11/13/20 07:11 [From Dilaudid] ons meperidine HCl [From Demerol] AdvReac Hallucinati Verified 11/13/20 07:11 ons Physical Exam Vitals: Vital Signs Temp Pulse Pulse Pulse Resp BP BP 11/13/20 08:00 18 11/13/20 07:58 98.4 F 91 20 136/65 11/13/20 04:15 98.7 F 90 18 144/76 11/13/20 02:43 99.1 F 87 18 121/67 11/13/20 01:49 84 20 132/67 11/12/20 22:41 98.0 F 98 20 168/79 Pulse Ox 11/13/20 08:00 11/13/20 07:58 96 11/13/20 04:15 98 11/13/20 02:43 97 11/13/20 01:49 98 11/12/20 22:41 97 Intake and Output 11/12/20 11/13/20 11/13/20 22:59 06:59 14:59 Other: Voiding Method Toilet Urinal # Voids 1 Weight 156.489 kg 156.489 kg - Constitutional General appearance: morbidly obese - EENT Eyes: no abnormal pupil - Neck Neck: no lymphadenopathy - Respiratory Respiratory: bilateral: CTA - Cardiovascular Rhythm: regular Heart sounds: normal: S1, S2 Abnormal Heart Sounds: no S3 Gallop - Gastrointestinal General gastrointestinal: soft, no tenderness - Neurologic Neurologic: CNII-XII intact - Musculoskeletal Musculoskeletal: strength equal bilaterally Results CBC & Chem 7: 11/12/20 23:29 11/12/20 23:29 Labs: Abnormal Lab Results - Last 24 Hours (Table) 11/12/20 11/12/20 11/12/20 Range/Units 23:03 23:29 23:29 RBC 3.52 L (4.30-5.90) m/uL Hgb 10.2 L (13.0-17.5) gm/dL Hct 29.7 L (39.0-53.0) % RDW 16.4 H (11.5-15.5) % Lymphocytes # 0.8 L (1.0-4.8) k/uL Sodium 128 L (137-145) mmol/L Carbon Dioxide 15 L (22-30) mmol/L BUN 29 H (9-20) mg/dL Glucose 584 H* (74-99) mg/dL POC Glucose (mg/dL) 582 H (75-99) mg/dL Osmolality 306 H (280-301) mosm/kg Alkaline Phosphatase 128 H (38-126) U/L Urine Protein (Negative) Urine Glucose (UA) (Negative) Urine Ketones (Negative) 11/12/20 11/13/20 11/13/20 Range/Units 23:42 00:28 01:38 RBC (4.30-5.90) m/uL Hgb (13.0-17.5) gm/dL Hct (39.0-53.0) % RDW (11.5-15.5) % Lymphocytes # (1.0-4.8) k/uL Sodium (137-145) mmol/L Carbon Dioxide (22-30) mmol/L BUN (9-20) mg/dL Glucose (74-99) mg/dL POC Glucose (mg/dL) 561 H 499 H (75-99) mg/dL Osmolality (280-301) mosm/kg Alkaline Phosphatase (38-126) U/L Urine Protein Trace H (Negative) Urine Glucose (UA) 4+ H (Negative) Urine Ketones 1+ H (Negative) 11/13/20 11/13/20 11/13/20 Range/Units 02:39 03:16 06:52 RBC (4.30-5.90) m/uL Hgb (13.0-17.5) gm/dL Hct (39.0-53.0) % RDW (11.5-15.5) % Lymphocytes # (1.0-4.8) k/uL Sodium (137-145) mmol/L Carbon Dioxide (22-30) mmol/L BUN (9-20) mg/dL Glucose (74-99) mg/dL POC Glucose (mg/dL) 416 H 417 H 464 H (75-99) mg/dL Osmolality (280-301) mosm/kg Alkaline Phosphatase (38-126) U/L Urine Protein (Negative) Urine Glucose (UA) (Negative) Urine Ketones (Negative) 11/13/20 Range/Units 11:32 RBC (4.30-5.90) m/uL Hgb (13.0-17.5) gm/dL Hct (39.0-53.0) % RDW (11.5-15.5) % Lymphocytes # (1.0-4.8) k/uL Sodium (137-145) mmol/L Carbon Dioxide (22-30) mmol/L BUN (9-20) mg/dL Glucose (74-99) mg/dL POC Glucose (mg/dL) 422 H (75-99) mg/dL Osmolality (280-301) mosm/kg Alkaline Phosphatase (38-126) U/L Urine Protein (Negative) Urine Glucose (UA) (Negative) Urine Ketones (Negative) Thrombosis Risk Factor Assmnt - Choose All That Apply Any of the Below Risk Factors Present?: Yes Each Factor Represents 1 point: Obesity (BMI >25) Other Risk Factors: No Other congenital or acquired thrombophilia - If yes, enter type in comment: No Thrombosis Risk Factor Assessment Total Risk Factor Score: 1 Thrombosis Risk Factor Assessment Level: Low Risk Assessment and Plan (1) Multiple myeloma Current Visit: Yes Status: Acute Code(s): C90.00 - MULTIPLE MYELOMA NOT HAVING ACHIEVED REMISSION SNOMED Code(s): 958447360 (2) Medication side effect Current Visit: Yes Status: Acute Code(s): T88.7XXA - UNSP ADVERSE EFFECT OF DRUG OR MEDICAMENT, INIT ENCNTR SNOMED Code(s): 878109863 (3) Hyperglycemia Current Visit: Yes Status: Acute Code(s): R73.9 - HYPERGLYCEMIA, UNSPECIFIED SNOMED Code(s): 19123845 (4) Obesity Current Visit: Yes Status: Acute Code(s): E66.9 - OBESITY, UNSPECIFIED SNOMED Code(s): 959335430 (5) Acute stress reaction Current Visit: Yes Status: Acute Code(s): F43.0 - ACUTE STRESS REACTION SNOMED Code(s): 07713712 Plan: I had a long discussion regarding his hyperglycemia related to dexamethasone. I told him that he should try to continue taking The steroid and we can compensate by giving . Reconcile home medications. Check CBC and CMP in the a.m. Antic48 hours Time with Patient: Greater than 30
[2020-11-13] MEDS: lisinopriL 20 MG TAB PO SCH (13:02)
[2020-11-13] MEDS: HYDROcodone/APAP 10-325MG 1 EACH TAB PO SCH ×3 (13:02→19:28)
[2020-11-13] MEDS: PARoxetine 20 MG TAB PO SCH (13:03)
[2020-11-13] MEDS: amLODIPine 10 MG TAB PO SCH (13:03)
[2020-11-13] MEDS: IBUPROFEN 800 MG TAB PO SCH ×3 (13:03→23:13)
[2020-11-13] MEDS: NON FORMULARY DRUG (Lenalidomide [Revlimid] 25 MG Capsule) PO SCH (13:04)
[2020-11-13 16:34] LABS: Glucose,Whole Blood 214 mg/dL (75-99)
--- NOTE | 2020-11-13 18:37 | P.CONS ---
History of Present Illness - Reason for Consult Consult date: 11/13/20 multiple myeloma Requesting physician: Cruz Vázquez - Chief Complaint hyperglycemia - History of Present Illness Mr. Chandler is a very pleasant male referred to Dr. Méndez for anemia, hemoglobin of 8.6, labs done 07/23/20. MCV was 84, CBC indices otherwise normal, RDW increased at 16.4%, chem panel within normal limits, blood glucose was 182. Patient had a colonoscopy 05/21, small rectal polyps removed, pathology revealed hyperplastic polyps. Patient was not on any antiplatelet agents or anticoagulation. Using ibuprofen regularly for degenerative joint disease. Patient had occasionally seen bright red blood on the toilet after bowel movements on multiple occasions. Had a colonoscopy, told he had hemorrhoids. No recollection and EGD. Workup showed a monoclonal gammopathy, M protein 0.2 g/dL. Lambda light chain 108.3. Bone marrow aspiration biopsy 09/24/20, confirmed multiple myeloma, with about 80% involvement of the bone marrow with lambda restricted plasma cells. Multiple myeloma FISH study was negative. Patient received the diagnosis 10/03/20. He was seen in the office for treatment education 10/08. Patient showed up in the office on 10/23 to discuss anxieties and fears regarding treatment. Patient showed up again in the office on 11/08 for reinforcement, he had still not started treatment. Patient started treatment 11/12/20. He took the high-dose weekly steroids. As anticipated and discussed, his blood sugar elevated. He states he had polyuria and polydipsia, no other symptoms to report. He contacted the office with his glucometer not being able to read his blood sugar, he was directed to the emergency department. His blood sugar was over 500 on admission. He is being treated. His blood sugars have come down into the 200 range now. No other c/o on a 14 point ROS Review of Systems 14 point ROS is neg except as stated in HPI Past Medical History Past Medical History: Cancer, Diabetes Mellitus, Hypertension Additional Past Medical History / Comment(s): gout, chronic back/L hip pain, multiple mylemo, 2012 L hip surgery History of Any Multi-Drug Resistant Organisms: None Reported Past Surgical History: Orthopedic Surgery Additional Past Surgical History / Comment(s): thymus gland removal, HIP SURGERY., lap band by domo 2009 Past Anesthesia/Blood Transfusion Reactions: No Reported Reaction Past Psychological History: Depression Smoking Status: Current every day smoker Past Alcohol Use History: None Reported Past Drug Use History: None Reported Medications and Allergies Home Medications Medication Instructions Recorded Confirmed Type PARoxetine HCL [Paxil] 40 mg PO DAILY 04/29/14 11/13/20 History amLODIPine [Norvasc] 10 mg PO DAILY 09/14/14 11/13/20 History ramipriL [Altace] 5 mg PO DAILY 09/14/14 11/13/20 History HYDROcodone/APAP 10-325MG [[place] 1 tab PO QID 08/24/16 11/13/20 History 10-325] Ibuprofen [Motrin] 800 mg PO QID 08/24/16 11/13/20 History Zolpidem [Ambien] 10 mg PO HS 04/02/17 11/13/20 History Dexamethasone [Decadron] 40 mg PO MO 11/13/20 11/13/20 History Lenalidomide [Revlimid] 25 mg PO DIRECTED 11/13/20 11/13/20 History Ondansetron [Zofran ODT] 4 mg PO Q6H PRN 11/13/20 11/13/20 History SILVER sulfADIAZINE Cream 0.0625 inch TOPICAL DAILY PRN 11/13/20 11/13/20 History [Silvadene 1% Cream] Sulfamethox-Tmp 800-160Mg [Bactrim 1 tab PO MOWEFR 11/13/20 11/13/20 History DS 800-160 mg] Allergies Allergy/AdvReac Type Severity Reaction Status Date / Time hydromorphone HCl AdvReac Hallucinati Verified 11/13/20 07:11 [From Dilaudid] ons meperidine HCl [From Demerol] AdvReac Hallucinati Verified 11/13/20 07:11 ons Physical Exam Vitals: Vital Signs Temp Pulse Pulse Pulse Resp BP BP 11/13/20 07:58 98.4 F 91 20 136/65 11/13/20 04:15 98.7 F 90 18 144/76 11/13/20 02:43 99.1 F 87 18 121/67 11/13/20 01:49 84 20 132/67 11/12/20 22:41 98.0 F 98 20 168/79 Pulse Ox 11/13/20 07:58 96 11/13/20 04:15 98 11/13/20 02:43 97 11/13/20 01:49 98 11/12/20 22:41 97 Intake and Output 11/12/20 11/13/20 11/13/20 22:59 06:59 14:59 Other: Voiding Method Toilet Urinal # Voids 1 Weight 156.489 kg 156.489 kg - Constitutional General appearance: cooperative, no acute distress, obese - EENT Eyes: anicteric sclerae, EOMI ENT: hearing grossly normal, normal oropharynx - Neck Neck: no lymphadenopathy - Respiratory Respiratory: bilateral: CTA - Cardiovascular Rhythm: regular Heart sounds: normal: S1, S2 Abnormal Heart Sounds: no systolic murmur, no diastolic murmur, no rub, no S3 Gallop, no S4 Gallop, no click, no other - Gastrointestinal General gastrointestinal: no absent bowel sounds, no decreased bowel sounds, no distended, no hepatomegaly, no hyperactive bowel sounds, normal bowel sounds, no organomegaly, no rigid, no scaphoid, soft, no splenomegaly, no tenderness, no umbilical hernia, no ventral hernia - Integumentary Integumentary: normal - Neurologic Neurologic: CNII-XII intact - Musculoskeletal Musculoskeletal: strength equal bilaterally - Psychiatric Psychiatric: A&O x's 3, appropriate affect, intact judgment & insight Results CBC & Chem 7: 11/12/20 23:29 11/12/20 23:29 Labs: Abnormal Lab Results - Last 24 Hours (Table) 11/12/20 11/12/20 11/12/20 Range/Units 23:03 23:29 23:29 RBC 3.52 L (4.30-5.90) m/uL Hgb 10.2 L (13.0-17.5) gm/dL Hct 29.7 L (39.0-53.0) % RDW 16.4 H (11.5-15.5) % Lymphocytes # 0.8 L (1.0-4.8) k/uL Sodium 128 L (137-145) mmol/L Carbon Dioxide 15 L (22-30) mmol/L BUN 29 H (9-20) mg/dL Glucose 584 H* (74-99) mg/dL POC Glucose (mg/dL) 582 H (75-99) mg/dL Osmolality 306 H (280-301) mosm/kg Alkaline Phosphatase 128 H (38-126) U/L Urine Protein (Negative) Urine Glucose (UA) (Negative) Urine Ketones (Negative) 11/12/20 11/13/20 11/13/20 Range/Units 23:42 00:28 01:38 RBC (4.30-5.90) m/uL Hgb (13.0-17.5) gm/dL Hct (39.0-53.0) % RDW (11.5-15.5) % Lymphocytes # (1.0-4.8) k/uL Sodium (137-145) mmol/L Carbon Dioxide (22-30) mmol/L BUN (9-20) mg/dL Glucose (74-99) mg/dL POC Glucose (mg/dL) 561 H 499 H (75-99) mg/dL Osmolality (280-301) mosm/kg Alkaline Phosphatase (38-126) U/L Urine Protein Trace H (Negative) Urine Glucose (UA) 4+ H (Negative) Urine Ketones 1+ H (Negative) 11/13/20 11/13/20 11/13/20 Range/Units 02:39 03:16 06:52 RBC (4.30-5.90) m/uL Hgb (13.0-17.5) gm/dL Hct (39.0-53.0) % RDW (11.5-15.5) % Lymphocytes # (1.0-4.8) k/uL Sodium (137-145) mmol/L Carbon Dioxide (22-30) mmol/L BUN (9-20) mg/dL Glucose (74-99) mg/dL POC Glucose (mg/dL) 416 H 417 H 464 H (75-99) mg/dL Osmolality (280-301) mosm/kg Alkaline Phosphatase (38-126) U/L Urine Protein (Negative) Urine Glucose (UA) (Negative) Urine Ketones (Negative) Assessment and Plan (1) Hyperglycemia Narrative/Plan: Secondary to steroids, high-dose, once a week. This is part of the multiple myeloma regimen. He was told to keep a diary of CBG. No one educated him on insulin. He was referred to museum educator Patient is being treated for his high blood sugar. He has referral for diabetes education. We are going to be making an outpatient referral to an cut off saw tender metal. Current Visit: Yes Status: Acute Priority: High Code(s): R73.9 - HYPERGLYCEMIA, UNSPECIFIED SNOMED Code(s): 02389482 (2) Multiple myeloma Narrative/Plan: Patient was educated on his multiple myeloma drugs over a month ago. He continued to delay treatment for multiple reasons. He was educated at that time on his uncontrolled diabetes. He was ordered a glucometer. He was referred for c/o depression, he did not return calls. Plan at this time is to control sugar and get pt DC so he can cont treatment this week. Weekly steroids will be HELD until he is seen by Endocrinology Have had ofc make referral to Endocrinology. We will confirm appt date and time so we can reinforce with pt. If pt does not show there will have to be a different discussion because his uncontrolled diabetes is going to kill him before myeloma will. Current Visit: Yes Status: Acute Priority: High Code(s): C90.00 - MULTIPLE MYELOMA NOT HAVING ACHIEVED REMISSION SNOMED Code(s): 306128747 Plan: attests: I preformed history and physical exam, developed impression and plan of care. Discussed with dictator. Agree with dictated note, documented as scribe
[2020-11-13 19:21] LABS: Glucose,Whole Blood 318 mg/dL (75-99)
[2020-11-13] MEDS ORDERED: ZOLPIDEM 10 MG TAB PO SCH (21:00)
[2020-11-13] MEDS ORDERED: ZOLPIDEM 5 MG TAB PO SCH (23:05)
[2020-11-13 23:35] LABS: Glucose,Whole Blood 202 mg/dL (75-99)
[2020-11-14] MEDS: SODIUM CHLORIDE 0.9% 1,000 ML IV SCH ×2 (03:35→13:38)
[2020-11-14 07:05] LABS: Glucose,Whole Blood 244 mg/dL (75-99)
[2020-11-14] MEDS: PARoxetine 20 MG TAB PO SCH (08:23)
[2020-11-14] MEDS: IBUPROFEN 800 MG TAB PO SCH ×4 (08:25→21:32)
[2020-11-14] MEDS: HYDROcodone/APAP 10-325MG 1 EACH TAB PO SCH ×4 (08:32→21:32)
[2020-11-14] MEDS: amLODIPine 10 MG TAB PO SCH (08:32)
[2020-11-14] MEDS: lisinopriL 20 MG TAB PO SCH (08:33)
[2020-11-14] MEDS: INSULIN ASPART (NovoLOG) 100 UNIT/ML VIAL SQ SCH ×4 (08:33→20:24)
[2020-11-14] MEDS ORDERED: SULFAMETHOX-TMP 800-160MG 1 EACH TAB PO SCH (09:00)
--- NOTE | 2020-11-14 09:33 | P.PN ---
Subjective Progress Note Date: 11/14/20 Principal diagnosis: hyperglycemia 2/2 steroids In f/u today pt has no new physical c/o. His CBG is staying in the 200's. Objective - Vital Signs Vital signs: Vital Signs Temp 98.5 F 11/14/20 07:42 Pulse 85 11/14/20 07:42 Resp 15 11/14/20 07:42 BP 135/75 11/14/20 07:42 Pulse Ox 98 11/14/20 07:42 Intake & Output 11/13/20 11/14/20 11/14/20 18:59 06:59 18:59 Intake Total 1500 Output Total 400 Balance -400 1500 Intake: Intake, IV Titration 1500 Amount Sodium Chloride 0.9% 1, 1500 000 ml @ 125 mls/hr IV . Q[facility]H [facility] Rx#:[id number] Output: Urine 400 Other: Voiding Method Toilet Urinal # Voids 1 - Constitutional General appearance: Present: cooperative, morbidly obese - EENT Eyes: Present: anicteric sclerae, EOMI ENT: Present: hearing grossly normal - Respiratory Respiratory: bilateral: CTA - Cardiovascular Heart sounds: normal: S1, S2 Abnormal Heart Sounds: Absent: systolic murmur, diastolic murmur, rub, S3 Gallop, S4 Gallop, click, other - Peripheral edema leg Peripheral Edema: bilateral: 1+ - Gastrointestinal General gastrointestinal: Present: normal bowel sounds, soft - Integumentary Integumentary: Present: normal - Neurologic Neurologic: Present: CNII-XII intact - Musculoskeletal Musculoskeletal: Present: generalized weakness, strength equal bilaterally - Psychiatric Psychiatric: Present: A&O x's 3, appropriate affect, intact judgment & insight - Labs CBC & Chem 7: 11/12/20 23:29 11/12/20 23:29 Labs: Abnormal Lab Results - Last 24 Hours (Table) 11/13/20 11/13/20 11/13/20 Range/Units 11:32 16:31 19:20 POC Glucose (mg/dL) 422 H 214 H 318 H (75-99) mg/dL 11/13/20 11/14/20 Range/Units 23:33 07:04 POC Glucose (mg/dL) 202 H 244 H (75-99) mg/dL Assessment and Plan (1) Hyperglycemia Narrative/Plan: Secondary to steroids, high-dose, once a week. This is part of the multiple myeloma regimen. Consult Dietitian and adult educator. Has appt with Endocrinology tomorrow at 2pm-hopefully he is ready for discharge. Current Visit: Yes Status: Acute Priority: High Code(s): R73.9 - HYPERGLYCEMIA, UNSPECIFIED SNOMED Code(s): 79581416 (2) Multiple myeloma Narrative/Plan: Patient was educated on his multiple myeloma drugs over a month ago. He continued to delay treatment for multiple reasons. He was educated at that time on his uncontrolled diabetes. He was ordered a glucometer. He was referred for c/o depression. States he did speak with someone at [facility]. Plan at this time is to control sugar and get pt DC so he can cont treatment this week. Weekly dex will be HELD until he has a plan developed with Endocrinology and is handling insulin administration Current Visit: Yes Status: Acute Priority: High Code(s): C90.00 - MULTIPLE MYELOMA NOT HAVING ACHIEVED REMISSION SNOMED Code(s): 261939343 Plan: attests: I preformed history and physical exam, developed impression and plan of care. Discussed with dictator. Agree with dictated note, documented as scribe Time with Patient: Greater than 30 (counseling and coordinating care)
[2020-11-14 10:08] LABS: African American GFR (CKD) 77.3 (60.0-200.0); Albumin/Globulin Ratio 2.67 (1.60-3.17); Anion Gap 7.1 mmol/L (4.00-12.00); BUN/Creat Ratio 26.67 Ratio (12.00-20.00); Carbon Dioxide 20.9 mmol/L (21.6-31.8); Globulin 1.5 g/dL (1.6-3.3); Non-African American GFR(CKD) 66.7 (60.0-200.0); Potassium 4.3 mmol/L (3.5-5.5); Total Bilirubin 0.2 mg/dL (0.2-1.2); Total Protein 5.5 g/dL (6.2-8.2)
[2020-11-14 11:35] LABS: Glucose,Whole Blood 326 mg/dL (75-99)
[2020-11-14] MEDS: Lenalidomide [Revlimid] 25 MG Capsule PO SCH (13:37)
[2020-11-14 15:29] VITALS: BMI 49.5
[2020-11-14 16:33] LABS: Glucose,Whole Blood 158 mg/dL (75-99)
[2020-11-14] MEDS: NON FORMULARY DRUG (Lenalidomide [Revlimid] 25 MG Capsule) PO SCH (16:53)
[2020-11-14 20:18] LABS: Glucose,Whole Blood 227 mg/dL (75-99)
[2020-11-14] MEDS ORDERED: ZOLPIDEM 10 MG TAB PO PRN (20:59)
--- NOTE | 2020-11-14 22:24 | P.PN ---
Subjective Progress Note Date: 11/14/20 Principal diagnosis: Hypoglycemia elements. The patient seems to beDoing better now that sliding scale has been instituted. Objective - Vital Signs Vital signs: Vital Signs Temp 98.7 F 11/14/20 20:00 Pulse 80 11/14/20 20:00 Resp 18 11/14/20 20:00 BP 121/74 11/14/20 20:00 Pulse Ox 98 11/14/20 20:00 Intake & Output 11/14/20 11/14/20 11/15/20 06:59 18:59 06:59 Intake Total 1500 Balance 1500 Weight 156.489 kg Intake: Intake, IV Titration 1500 Amount Sodium Chloride 0.9% 1, 1500 000 ml @ 125 mls/hr IV . Q8H [facility] Rx#:[id number] Other: Voiding Method Toilet Toilet Urinal Urinal # Voids 1 3 - Constitutional General appearance: Present: morbidly obese - EENT Eyes: Absent: abnormal pupil - Neck Neck: Absent: lymphadenopathy - Respiratory Respiratory: bilateral: diminished - Cardiovascular Rhythm: regular Heart sounds: normal: S1, S2 Abnormal Heart Sounds: Absent: S3 Gallop - Gastrointestinal General gastrointestinal: Present: soft. Absent: tenderness - Labs CBC & Chem 7: 11/12/20 23:29 11/14/20 05:56 Labs: Abnormal Lab Results - Last 24 Hours (Table) 11/13/20 11/14/20 11/14/20 Range/Units 23:33 05:56 07:04 Carbon Dioxide 20.9 L (21.6-31.8) mmol/L BUN 32.0 H (9.0-27.0) mg/dL BUN/Creatinine Ratio 26.67 H (12.00-20.00) Ratio Glucose 231 H (70-110) mg/dL POC Glucose (mg/dL) 202 H 244 H (75-99) mg/dL AST 10 L (14-35) U/L Total Protein 5.5 L (6.2-8.2) g/dL Globulin 1.5 L (1.6-3.3) g/dL 11/14/20 11/14/20 11/14/20 Range/Units 11:33 16:31 20:16 Carbon Dioxide (21.6-31.8) mmol/L BUN (9.0-27.0) mg/dL BUN/Creatinine Ratio (12.00-20.00) Ratio Glucose (70-110) mg/dL POC Glucose (mg/dL) 326 H 158 H 227 H (75-99) mg/dL AST (14-35) U/L Total Protein (6.2-8.2) g/dL Globulin (1.6-3.3) g/dL Assessment and Plan (1) Multiple myeloma Current Visit: Yes Status: Acute Priority: High Code(s): C90.00 - MULTIPLE MYELOMA NOT HAVING ACHIEVED REMISSION SNOMED Code(s): 017401197 (2) Medication side effect Current Visit: Yes Status: Acute Code(s): T88.7XXA - UNSP ADVERSE EFFECT OF DRUG OR MEDICAMENT, INIT ENCNTR SNOMED Code(s): 809152026 (3) Hyperglycemia Current Visit: Yes Status: Acute Priority: High Code(s): R73.9 - HYPERGLYCEMIA, UNSPECIFIED SNOMED Code(s): 73182175 (4) Obesity Current Visit: Yes Status: Acute Code(s): E66.9 - OBESITY, UNSPECIFIED SNOMED Code(s): 744401262 (5) Acute stress reaction Current Visit: Yes Status: Acute Code(s): F43.0 - ACUTE STRESS REACTION SNOMED Code(s): 19157892 Plan: I had a long discussion regarding his hyperglycemia related to dexamethasone. I told him that he should try to continue taking The steroid and we can compensate by giving . Reconcile home medications. Check CBC and CMP in the a.m. I had a short discussion with the oncology team and the patient tends to have an element of laziness with his sugar. We will definitely reeducate the patient
[2020-11-14] MEDS ORDERED: ZOLPIDEM 5 MG TAB PO PRN (23:15)
[2020-11-14 23:18] LABS: Glucose,Whole Blood 212 mg/dL (75-99)
[2020-11-15] MEDS ORDERED: INSULIN DETEMIR (LEVEMIR) 100 UNIT/ML SYR SQ SCH (07:00)
[2020-11-15 07:12] LABS: Glucose,Whole Blood 164 mg/dL (75-99)
[2020-11-15 08:20] VITALS: RESP 16
[2020-11-15] MEDS: HYDROcodone/APAP 10-325MG 1 EACH TAB PO SCH ×3 (08:22→17:17)
[2020-11-15] MEDS: amLODIPine 10 MG TAB PO SCH (08:23)
[2020-11-15] MEDS: lisinopriL 20 MG TAB PO SCH (08:23)
[2020-11-15] MEDS: PARoxetine 20 MG TAB PO SCH (08:23)
[2020-11-15] MEDS: IBUPROFEN 800 MG TAB PO SCH ×3 (08:23→17:17)
[2020-11-15] MEDS: INSULIN ASPART (NovoLOG) 100 UNIT/ML VIAL SQ SCH ×3 (08:29→17:16)
[2020-11-15] MEDS: Lenalidomide [Revlimid] 25 MG Capsule PO SCH (08:31)
--- NOTE | 2020-11-15 08:43 | P.DS ---
Providers Date of admission: 11/13/20 00:49 Attending physician: Perez Pennington Consults: 11/13/20 03:15 Consult Physician Routine Consulting Provider: Yifan Méndez Consult Reason/Comments: hyperglycemia, multiple myeloma Do you want consulting provider notified?: Yes Primary care physician: Perez Pennington - Discharge Diagnosis(es) (1) Multiple myeloma Current Visit: Yes Status: Acute Priority: High (2) Medication side effect Current Visit: Yes Status: Acute (3) Hyperglycemia Current Visit: Yes Status: Acute Priority: High (4) Obesity Current Visit: Yes Status: Acute (5) Acute stress reaction Current Visit: Yes Status: Acute Hospital Course: This discharge summary an 55-year-old white male with known history of multiple myeloma was admitted secondary to hyperglycemia secondary to dexamethasone. Diabetes element is also noted. He was stabilized with appropriate insulin treatment educated that the patient remains nervous. The patient will be discharged once cleared by oncology to follow-up with me in 1-2 days. The patient's sugars been stable. Patient Condition at Discharge: Fair Plan - Discharge Summary New Discharge Prescriptions: New Insulin Detemir (Levemir) [Levemir] 24 unit SQ DAILY@0700 #3 vial INSULIN ASPART (NovoLOG) [NovoLOG (formulary)] 0 unit SQ ACHS #0 vial Continue PARoxetine HCL [Paxil] 40 mg PO DAILY amLODIPine [Norvasc] 10 mg PO DAILY ramipriL [Altace] 5 mg PO DAILY HYDROcodone/APAP 10-325MG [[place]ars 10-325] 1 tab PO QID Ibuprofen [Motrin] 800 mg PO QID Zolpidem [Ambien] 10 mg PO HS Sulfamethox-Tmp 800-160Mg [Bactrim DS 800-160 mg] 1 tab PO MOWEFR SILVER sulfADIAZINE Cream [Silvadene 1% Cream] 0.0625 inch TOPICAL DAILY PRN PRN Reason: Wound Healing Ondansetron [Zofran ODT] 4 mg PO Q6H PRN PRN Reason: Nausea And Vomiting Dexamethasone [Decadron] 40 mg PO MO Lenalidomide [Revlimid] 25 mg PO DIRECTED Discharge Medication List PARoxetine HCL [Paxil] 40 mg PO DAILY 04/29/14 [History] amLODIPine [Norvasc] 10 mg PO DAILY 09/14/14 [History] ramipriL [Altace] 5 mg PO DAILY 09/14/14 [History] HYDROcodone/APAP 10-325MG [[place] 10-325] 1 tab PO QID 08/24/16 [History] Ibuprofen [Motrin] 800 mg PO QID 08/24/16 [History] Zolpidem [Ambien] 10 mg PO HS 04/02/17 [History] Dexamethasone [Decadron] 40 mg PO MO 11/13/20 [History] Lenalidomide [Revlimid] 25 mg PO DIRECTED 11/13/20 [History] Ondansetron [Zofran ODT] 4 mg PO Q6H PRN 11/13/20 [History] SILVER sulfADIAZINE Cream [Silvadene 1% Cream] 0.0625 inch TOPICAL DAILY PRN 11/13/20 [History] Sulfamethox-Tmp 800-160Mg [Bactrim DS 800-160 mg] 1 tab PO MOWEFR 11/13/20 [History] INSULIN ASPART (NovoLOG) [NovoLOG (formulary)] 0 unit SQ ACHS #0 vial 11/15/20 [Rx] Insulin Detemir (Levemir) [Levemir] 24 unit SQ DAILY@0700 #3 vial 11/15/20 [Rx] Follow up Appointment(s)/Referral(s): Brett Champion MD [REFERRING] - 11/15/20 2:00 pm Perez Pennington MD [Primary Care Provider] - 1-2 days [facility] [NON-STAFF] - As Needed [facility] Visiting Nurse, [NON-STAFF] - 1-2 Days Activity/Diet/Wound Care/Special Instructions: [facility] app[facility] for velcade injection on 11/15/20
[2020-11-15 10:20] LABS: Glucose,Whole Blood 221 mg/dL (75-99)
--- NOTE | 2020-11-15 11:34 | P.PN ---
Subjective Progress Note Date: 11/15/20 Principal diagnosis: hyperglycemia 2/2 steroids In f/u today pt is experiencing cold sweats when seen, blood sugar was checked and was 221. He has no physical complaints at this time. Most of his complaints are regarding social situations and emotional. Objective - Vital Signs Vital signs: Vital Signs Temp 98.5 F 11/15/20 08:00 Pulse 94 11/15/20 08:00 Resp 16 11/15/20 08:00 BP 132/72 11/15/20 08:00 Pulse Ox 100 11/15/20 08:00 Intake & Output 11/14/20 11/15/20 11/15/20 18:59 06:59 18:59 Output Total 400 Balance -400 Weight 156.489 kg Output: Urine 400 Other: Voiding Method Toilet Toilet Urinal Urinal # Voids 3 3 3 - Constitutional General appearance: Present: cooperative, mild distress, morbidly obese - EENT Eyes: Present: anicteric sclerae, EOMI ENT: Present: hard of hearing - Respiratory Respiratory: bilateral: CTA - Cardiovascular Rhythm: regular Heart sounds: normal: S1, S2 Abnormal Heart Sounds: Absent: systolic murmur, diastolic murmur, rub, S3 Gallop, S4 Gallop, click, other - Peripheral edema leg Peripheral Edema: bilateral: Trace - Gastrointestinal General gastrointestinal: Present: normal bowel sounds, soft - Integumentary Integumentary: Present: normal - Neurologic Neurologic: Present: CNII-XII intact - Musculoskeletal Musculoskeletal: Present: generalized weakness, strength equal bilaterally - Psychiatric Psychiatric: Present: A&O x's 3, intact judgment & insight - Labs CBC & Chem 7: 11/12/20 23:29 11/14/20 05:56 Labs: Abnormal Lab Results - Last 24 Hours (Table) 11/14/20 11/14/20 11/14/20 Range/Units 11:33 16:31 20:16 POC Glucose (mg/dL) 326 H 158 H 227 H (75-99) mg/dL 11/14/20 11/15/20 11/15/20 Range/Units 23:16 07:11 10:19 POC Glucose (mg/dL) 212 H 164 H 221 H (75-99) mg/dL Assessment and Plan (1) Hyperglycemia Narrative/Plan: Secondary to steroids, high-dose, once a week as part of treatment regimen for multiple myeloma. Consult Dietitian and nurse educator, patient has been seen. Per nursing patient has demonstrated insulin administration and blood sugar monitoring. Has appt with Endocrinology today at 2pm-hopefully he is ready for discharge. Greater than 35 minutes was spent counseling patient regarding diabetes, diet, reinforcing educational points, review of written handouts. Current Visit: Yes Status: Acute Priority: High Code(s): R73.9 - HYPERGLYCEMIA, UNSPECIFIED SNOMED Code(s): 23699940 (2) Multiple myeloma Narrative/Plan: Patient was educated on his multiple myeloma drugs over a month ago. He continued to delay treatment for multiple reasons. He was educated at that time on his uncontrolled diabetes. He was ordered a glucometer. He was referred for c/o depression. States he did speak with someone at [facility]. Plan for myeloma treatment: Patient will resume Velcade next week, days 8 and 11, to complete 1st cycle. He will continue oral Revlimid daily for a total of 14 days. He will NOT take steroids until he has had a follow-up appointment with Dr. Méndez, which is scheduled for his week off of treatment. Appointment date and time is in the chart. Really want patient to follow-up with Endocrinology. They were very generous in giving us an appointment as soon as they have. Patient made statements that he wanted to stay until after lunch and then go to the appointment which was okay. Then, he made statements that he didn't want to go to appt without being shaved. Not sure if the patient is going to be ready for discharge. Have asked the staff to please cancel the appointment with Endocrinology as soon as to have an idea of what patient is going to do. Current Visit: Yes Status: Acute Priority: High Code(s): C90.00 - MULTIPLE MYELOMA NOT HAVING ACHIEVED REMISSION SNOMED Code(s): 295026324 Plan: attests: I preformed history and physical exam, developed impression and plan of care. Discussed with dictator. Agree with dictated note, documented as scribe Time with Patient: Greater than 30 (Greater than 35 minutes, greater than 50% of time spent counseling and coordinating care)
[2020-11-15 16:23] VITALS: BP 130/62; PULSE 80; TEMP 97.9
[2020-11-15 17:13] LABS: Glucose,Whole Blood 180 mg/dL (75-99)
== END 2020-11-15 18:00 | disposition home health service (06) | DRG 638 ==
LOC: EC 22:40 → 5NMEDONC 11-13 00:49
PROVIDERS: ADMIT Family Medicine; ATTEND Family Medicine
DX: E11.65 Type 2 diabetes mellitus with hyperglycemia (principal); C90.00 Multiple myeloma not having achieved remission; Z68.42 Body mass index [BMI] 45.0-49.9, adult; Z20.822 Contact with and (suspected) exposure to COVID-19; M10.9 Gout, unspecified; I10 Essential (primary) hypertension; G89.29 Other chronic pain; F17.200 Nicotine dependence, unspecified, uncomplicated; F32.9 Major depressive disorder, single episode, unspecified; E66.9 Obesity, unspecified; F43.0 Acute stress reaction; D63.0 Anemia in neoplastic disease; K64.9 Unspecified hemorrhoids; M19.90 Unspecified osteoarthritis, unspecified site; T38.0X5A Adverse effect of glucocorticoids and synthetic analogues, initial encounter; Z71.3 Dietary counseling and surveillance; Z79.899 Other long term (current) drug therapy; Z98.890 Other specified postprocedural states; Z87.19 Personal history of other diseases of the digestive system; Z90.89 Acquired absence of other organs; Z98.84 Bariatric surgery status; Z88.8 Allergy status to other drugs, medicaments and biological substances
CPT/HCPCS: 36415; 80053; 81003; 82009; 83735; 83930; 85025; 87635; 96360; 96361; 96402; 99285

== ENCOUNTER 2021-02-04 11:08 | Inpatient (IN) | payer MEDICARE ==
--- NOTE | 2021-02-04 11:28 | ED ---
General Adult HPI - General Source: patient, RN notes reviewed Mode of arrival: wheelchair Limitations: no limitations <Frank Munoz - Last Filed: 02/04/21 11:27> <Aldo Bob - Last Filed: 02/04/21 16:40> - General Chief complaint: Shortness of Breath Stated complaint: pain all over Time Seen by Provider: 02/04/21 11:25 - History of Present Illness Initial comments: 55-year-old male presents emergency from chief complaint shortness breath, exertional shortness breath, leg swelling. Patient states he has known lower extremity GM short leg. He is currently on Eliquis. Patient states that symptoms have an progressively getting worse. He states that he cannot walk more than a few steps without feeling very winded. Patient states she has no history of congestive heart failure. Has no resting chest pain no fevers or chills. (Frank Munoz) This is a 55-year-old male with a past medical history significant for diabetes and hypertension as well as a recently diagnosed DVT. Patient does not know which led to DVT is in but he is on eliquis. Patient states for the last 2 weeks he becoming more more short of breath and he is also having some burning in his chest since earlier today which she states is a 1 out of 10. Patient denies any fever chills or cough per patient denies any palpitation. Patient denies any abdominal pain patient denies nausea vomiting diarrhea. Patient denies any trauma. Patient states his legs are more swollen than normal and the calves are more tender than normal. (Aldo Bob) - Related Data Home Medications Medication Instructions Recorded Confirmed PARoxetine HCL [Paxil] 40 mg PO DAILY 04/29/14 01/31/21 amLODIPine [Norvasc] 10 mg PO DAILY 09/14/14 01/31/21 ramipriL [Altace] 5 mg PO DAILY 09/14/14 01/31/21 HYDROcodone/APAP 10-325MG [[place] 1 tab PO QID 08/24/16 01/31/21 10-325] Ibuprofen [Motrin] 800 mg PO QID 08/24/16 01/31/21 Zolpidem [Ambien] 10 mg PO HS 04/02/17 01/31/21 Lenalidomide [Revlimid] 25 mg PO DIRECTED 11/13/20 01/31/21 Ondansetron [Zofran ODT] 4 mg PO Q6H PRN 11/13/20 01/31/21 SILVER sulfADIAZINE Cream 0.0625 inch TOPICAL DAILY PRN 11/13/20 01/31/21 [Silvadene 1% Cream] Sulfamethox-Tmp 800-160Mg [Bactrim 1 tab PO MOWEFR 11/13/20 01/31/21 DS 800-160 mg] INSULIN ASPART (NovoLOG) [NovoLOG 0 unit SQ ACHS 11/15/20 01/31/21 (formulary)] Acyclovir 1 tab PO BID 01/03/21 01/31/21 Previous Rx's Medication Instructions Recorded INSULIN ASPART (NovoLOG) [NovoLOG 0 unit SQ ACHS #0 vial 11/15/20 (formulary)] Insulin Detemir (Levemir) [Levemir] 24 unit SQ DAILY@0700 #3 vial 11/15/20 Allergies Allergy/AdvReac Type Severity Reaction Status Date / Time hydromorphone HCl AdvReac Hallucinati Verified 02/04/21 11:24 [From Dilaudid] ons meperidine HCl [From Demerol] AdvReac Hallucinati Verified 02/04/21 11:24 ons Review of Systems ROS Other: All systems not noted in ROS Statement are negative. <Frank Munoz - Last Filed: 02/04/21 11:27> ROS Other: All systems not noted in ROS Statement are negative. <Aldo Bob - Last Filed: 02/04/21 16:40> ROS Statement: Those systems with pertinent positive or pertinent negative responses have been documented in the HPI. Past Medical History Past Medical History: Cancer, Diabetes Mellitus, Hypertension Additional Past Medical History / Comment(s): gout, chronic back/L hip pain, multiple mylemo, 2012 L hip surgery History of Any Multi-Drug Resistant Organisms: None Reported Past Surgical History: Orthopedic Surgery Additional Past Surgical History / Comment(s): thymus gland removal, HIP SURGERY., lap band by romelt 2009 Past Anesthesia/Blood Transfusion Reactions: No Reported Reaction Past Psychological History: Depression Smoking Status: Former smoker Past Alcohol Use History: None Reported Past Drug Use History: None Reported <Frank Munoz - Last Filed: 02/04/21 11:27> General Exam Limitations: no limitations <Frank Munoz - Last Filed: 02/04/21 11:27> <Aldo Bob - Last Filed: 02/04/21 16:40> - General Exam Comments Initial Comments: GENERAL: Patient is well-developed and well-nourished. Patient is nontoxic and well- hydrated and is in mild distress. ENT: Neck is soft and supple. No significant lymphadenopathy is noted. Oropharynx is clear. Moist mucous membranes. Neck has full range of motion without eliciting any pain. EYES: The sclera were anicteric and conjunctiva were pink and moist. Extraocular movements were intact and pupils were equal round and reactive to light. Eyelids were unremarkable. PULMONARY: Unlabored respirations. Good breath sounds bilaterally. No audible rales rhonchi or wheezing was noted. CARDIOVASCULAR: There is a regular rate and rhythm without any murmurs gallops or rubs. ABDOMEN: Soft and nontender with normal bowel sounds. SKIN: Skin is clear with no lesions or rashes and otherwise unremarkable. NEUROLOGIC: Patient is alert and oriented x3. Cranial nerves II through XII are grossly intact. Motor and sensory are also intact. Normal speech, volume and content. Symmetrical smile. MUSCULOSKELETAL: Normal extremities with adequate strength and full range of motion. Patient has bilateral leg swelling as well as Tenderness bilaterally LYMPHATICS: No significant lymphadenopathy is noted PSYCHIATRIC: Normal psychiatric evaluation. (Aldo Bob) Course Vital Signs 02/04/21 11:24 Temperature 98.2 F Pulse Rate 86 Respiratory 18 Rate Blood Pressure 110/67 O2 Sat by Pulse 99 Oximetry Medical Decision Making - Lab Data Result diagrams: 02/04/21 12:40 02/04/21 12:39 <Aldo Bob - Last Filed: 02/04/21 16:40> - Medical Decision Making EKG shows normal sinus rhythm at 79 bpm IL interval 292 QRS is under 14 is 372 QTC is 426. Patient's EKG shows no significant ST segment elevation Second EKG was done when the patient was brought back to a room that showed normal sinus rhythm at 78 bpm IL interval is 180 QRSs 116 QT interval 380 QTC is 433. Patient's EKG shows no ST segment elevation or depression. Chest x-ray shows no acute abnormality. CT of the chest shows no PE. I spoke with Dr. guo and cardiology and the patient will be admitted I will write admitting orders and consult cardiology. Patient will not be started on h eparin because he is on eliquis (Aldo Bob) - Lab Data Lab Results 02/04/21 02/04/21 02/04/21 Range/Units 11:28 12:39 12:39 WBC (3.8-10.6) k/uL RBC (4.30-5.90) m/uL Hgb (13.0-17.5) gm/dL Hct (39.0-53.0) % MCV (80.0-100.0) fL MCH (25.0-35.0) pg MCHC (31.0-37.0) g/dL RDW (11.5-15.5) % Plt Count (150-450) k/uL MPV Neutrophils % % Lymphocytes % % Monocytes % % Eosinophils % % Basophils % % Neutrophils # (1.3-7.7) k/uL Lymphocytes # (1.0-4.8) k/uL Monocytes # (0-1.0) k/uL Eosinophils # (0-0.7) k/uL Basophils # (0-0.2) k/uL Manual Slide Review Hypochromasia Poikilocytosis Anisocytosis Sodium 133 L (137-145) mmol/L Potassium 3.8 (3.5-5.1) mmol/L Chloride 103 (98-107) mmol/L Carbon Dioxide 19 L (22-30) mmol/L Anion Gap 11 mmol/L BUN 19 (9-20) mg/dL Creatinine 1.21 (0.66-1.25) mg/dL Est GFR (CKD-EPI)AfAm 77 (>60 ml/min/1.73 sqM) Est GFR (CKD-EPI)NonAf 66 (>60 ml/min/1.73 sqM) Glucose 147 H (74-99) mg/dL Calcium 9.2 (8.4-10.2) mg/dL Magnesium 1.9 (1.6-2.3) mg/dL Total Bilirubin 0.4 (0.2-1.3) mg/dL AST 29 (17-59) U/L ALT 19 (4-49) U/L Alkaline Phosphatase 83 (38-126) U/L Troponin I 3.400 H* (0.000-0.034) ng/mL NT-Pro-B Natriuret Pep pg/mL Total Protein 6.0 L (6.3-8.2) g/dL Albumin 3.7 (3.5-5.0) g/dL Coronavirus (PCR) Not Detected (Not Detectd) 02/04/21 02/04/21 Range/Units 12:40 12:40 WBC 3.8 (3.8-10.6) k/uL RBC 3.02 L (4.30-5.90) m/uL Hgb 8.6 L (13.0-17.5) gm/dL Hct 25.3 L (39.0-53.0) % MCV 83.6 (80.0-100.0) fL MCH 28.5 (25.0-35.0) pg MCHC 34.1 (31.0-37.0) g/dL RDW 17.6 H (11.5-15.5) % Plt Count 36 L D (150-450) k/uL MPV 7.9 Neutrophils % 87 % Lymphocytes % 5 % Monocytes % 5 % Eosinophils % 0 % Basophils % 0 % Neutrophils # 3.4 (1.3-7.7) k/uL Lymphocytes # 0.2 L (1.0-4.8) k/uL Monocytes # 0.2 (0-1.0) k/uL Eosinophils # 0.0 (0-0.7) k/uL Basophils # 0.0 (0-0.2) k/uL Manual Slide Review Performed Hypochromasia Slight Poikilocytosis Slight Anisocytosis Slight Sodium (137-145) mmol/L Potassium (3.5-5.1) mmol/L Chloride (98-107) mmol/L Carbon Dioxide (22-30) mmol/L Anion Gap mmol/L BUN (9-20) mg/dL Creatinine (0.66-1.25) mg/dL Est GFR (CKD-EPI)AfAm (>60 ml/min/1.73 sqM) Est GFR (CKD-EPI)NonAf (>60 ml/min/1.73 sqM) Glucose (74-99) mg/dL Calcium (8.4-10.2) mg/dL Magnesium (1.6-2.3) mg/dL Total Bilirubin (0.2-1.3) mg/dL AST (17-59) U/L ALT (4-49) U/L Alkaline Phosphatase (38-126) U/L Troponin I (0.000-0.034) ng/mL NT-Pro-B Natriuret Pep 2030 pg/mL Total Protein (6.3-8.2) g/dL Albumin (3.5-5.0) g/dL Coronavirus (PCR) (Not Detectd) Critical Care Time Critical Care Time: Yes Total Critical Care Time: 35 <Aldo Bob - Last Filed: 02/04/21 16:40> Disposition <Frank Munoz - Last Filed: 02/04/21 11:27> Time of Disposition: 14:36 <Aldo Bob - Last Filed: 02/04/21 16:40> Clinical Impression: Non-STEMI (non-ST elevated myocardial infarction) Disposition: ADMITTED IP TO THIS HOSP
--- NOTE | 2021-02-04 12:07 | XR ---
EXAMINATION TYPE: XR chest 2V DATE OF EXAM: 02/04/2021 COMPARISON: 12/10/2018 HISTORY: 55-year-old male shortness of breath TECHNIQUE: PA and lateral views FINDINGS: Median sternotomy wires are present. Heart upper limits of normal in size. Mild interstitial prominen ce is unchanged. No consolidation or pleural effusion. IMPRESSION: Chronic changes without acute process seen.
[2021-02-04 12:55] LABS: Anisocytosis Slight; Basophils % (A) 0 %; Eosinophils % (A) 0 %; HCT 25.3 % (39.0-53.0); HGB 8.6 gm/dL (13.0-17.5); Hypochromasia Slight; Lymphocytes # (A) 0.2 k/uL (1.0-4.8); Lymphocytes % (A) 5 %; MCH 28.5 pg (25.0-35.0); MCHC 34.1 g/dL (31.0-37.0); MCV 83.6 fL (80.0-100.0); Mean Platelet Volume 7.9; Monocytes # (A) 0.2 k/uL (0-1.0); Monocytes % (A) 5 %; Neutrophils # (A) 3.4 k/uL (1.3-7.7); Neutrophils % (A) 87 %; Poikilocytosis Slight; RBC 3.02 m/uL (4.30-5.90); RDW 17.6 % (11.5-15.5); WBC 3.8 k/uL (3.8-10.6)
[2021-02-04 13:32] LABS: Albumin 3.7 g/dL (3.5-5.0); Calcium 9.2 mg/dL (8.4-10.2); Magnesium 1.9 mg/dL (1.6-2.3); Potassium 3.8 mmol/L (3.5-5.1); Total Bilirubin 0.4 mg/dL (0.2-1.3)
[2021-02-04 13:45] LABS: Platelet Count 36 k/uL (150-450)
--- NOTE | 2021-02-04 15:39 | CT ---
EXAMINATION TYPE: CT chest angio for PE DATE OF EXAM: 02/04/2021 COMPARISON: None HISTORY: DVT, suspected PE CT DLP: 1566.2 mGycm CONTRAST: CT chest with contrast and 3D reconstruction with MIP imaging is performed with IV Contrast, patient injected with 100 mL of Isovue 370. Contrast-enhanced CT of the chest was performed through the course of the pulmonary arteries with jojo g and mediastinal window settings submitted. 3D reconstruction with MIP imaging was also performed. PULMONARY ARTERIES: The pulmonary arteries and their major tributaries are patent. I do not see rudy dence for sizable filling defect to suggest pulmonary embolic process. LUNGS: The lungs are clear and free of infiltrate. No evidence for atelectasis. No pulmonary nodule or mass is detected. No pleural effusion. MEDIASTINUM: Thoracic aorta is of normal caliber,however, evaluation is limited given timing of the contrast bolus. If there is concern for thoracic aortic pathology consider BETSY. Correlate clinicall y . The heart is not enlarged. No evidence for mediastinal mass. No mediastinal lymph nodes greater than 1cm. HILAR STRUCTURES: No evidence for mass. No hilar lymph nodes greater than 1 cm. UPPER ABDOMEN: No significant abnormality is seen. IMPRESSION: 1. No evidence for Pulmonary embolism at this time.
[2021-02-04] MEDS ORDERED: NITROGLYCERIN SL TABS 0.4 MG TAB SUBLINGUAL PRN (15:59)
--- NOTE | 2021-02-04 16:49 | P.CRDCN ---
History of Present Illness History of present illness: HISTORY OF PRESENTING ILLNESS This is a pleasant 55-year-old male past medical history significant for hypertension, type 2 diabetes, former nicotine dependence (quit 3 months ago, was smoking 1/2pp), recent diagnosis of DVT (he is unsure what leg) and was started on Eliquis, multiple myeloma follows with Dr. Méndez (recent chemotherapy treatment on thrusday). He does not follow with a cardiolgoist. We have been asked to see in consultation for elevated troponin. Patient is seen and examined in the emergency department. Patient states he started having shortness of breath a week and half ago and progressively has gotten worse. He usually can walk 1-3 blocks and now cannot walk 2-3 feet without feeling short of breath. He also endorses lower extremity edema. He also endorses some chest pain. It is located on the left side of his chest, it is sometimes exertional. It is non- radiating. It worsens when he takes a deep breath or coughs. Associated with diaphoresis. He has taken [place] at home for the pain and it does not help. He denies palpitations. He states he sometimes does get lightheaded and feels that he may pass out. He does feel short of breath when lying flat. He states that since he has started Eliquis for his DVT he has had worsening shortness of breath. He also endorses having some abdominal pain and nausea in the morning. Laboratory data reviewed, troponin 2.4, BNP 2030, sodium 133, potassium 3.8, serum creatinine 1.1, magnesium 1.9, WBC 3.8, hemoglobin 8.6, platelets 36 Vital signs blood pressure 110/67, heart rate 86, afebrile, maintaining oxygen saturation on room air. Current home cardiac medications include amlodipine 10 mg daily, Eliquis 5mg BID, last taken today. DIAGNOSTICS EKG reveals sinus rhythm heart rate 79, no significant ST elevation or ST-T wave abnormalities seen. No significant changes from prior Telemetry tracings at bedside- appear sinus mechanism with HR 70s Chest xray median sternotomy wires are present, heart limits of normal size, mild interstitial prominence is unchanged. CT chest negative for pulmonary embolism REVIEW OF SYSTEMS At the time of my exam: CONSTITUTIONAL: Denies fever or chills. CARDIOVASCULAR: + chest pain, +shortness of breath, +orthopnea, Denies PND or palpitations. RESPIRATORY: + cough. GASTROINTESTINAL:+abdominal pain, Denies diarrhea, constipation, nausea or vomiting. MUSCULOSKELETAL:+left leg pain. Denies myalgias. NEUROLOGIC: Denies numbness, tingling, headache or weakness. ENDOCRINE: + fatigue, Denies weight change, polydipsia or polyurina. GENITOURINARY: Denies burning, hematuria or urgency with micturation. HEMATOLOGIC: Denies history of anemia or bleeding. PHYSICAL EXAMINATION CONSTITUTIONAL: No apparent distress. HEENT: Head is normocephalic. Pupils are equal, round. Sclerae anicteric. Mucous membranes of the mouth are moist. No JVD. No carotid bruit. CHEST EXAMINATION: Lungs are clear to auscultation. No chest wall tenderness is noted on palpation or with deep breathing. HEART EXAMINATION: Regular rate and rhythm. S1, S2 heard. No murmurs, gallops or rub. ABDOMEN: Soft, nontender. Positive bowel sounds. EXTREMITIES: 2+ peripheral pulses, mild bilateral lower extremity edema and no calf tenderness. SKIN: intact NEUROLOGIC EXAMINATION: Patient is awake, alert and oriented x3. ASSESSMENT NSTEMI Thrombocytopenia History of hypertension Type 2 diabetes Former nicotine dependence (quit 3 months ago, was smoking 1/2pp Recent diagnosis of DVT (he is unsure what leg) and was started on Eliquis Multiple myeloma follows with Dr. Méndez Obesity BMI 49 PLAN -Will Obtain 2D echocardiogram and doppler study to assess cardiac structure and function. -ok to Continue aspirin and SL nitro -Will hold eliquis and heparin at this point due to thrombocytopenia -Will hold off on cardiac catheterziation at this time due to thrombocytopenia and risk of bleeding -Will consult Hematology -Further recommendations based on clinical course Nurse Practitioner note has been reviewed, I agree with a documented findings and plan of care. Patient was seen and examined. Past Medical History Past Medical History: Cancer, Diabetes Mellitus, Hypertension Additional Past Medical History / Comment(s): gout, chronic back/L hip pain, multiple mylemo, 2012 L hip surgery History of Any Multi-Drug Resistant Organisms: None Reported Past Surgical History: Orthopedic Surgery Additional Past Surgical History / Comment(s): thymus gland removal, HIP SURGERY., lap band by domo 2009 Past Anesthesia/Blood Transfusion Reactions: No Reported Reaction Past Psychological History: Depression Smoking Status: Former smoker Past Alcohol Use History: None Reported Past Drug Use History: None Reported Medications and Allergies Home Medications Medication Instructions Recorded Confirmed Type PARoxetine HCL [Paxil] 40 mg PO DAILY 04/29/14 01/31/21 History amLODIPine [Norvasc] 10 mg PO DAILY 09/14/14 01/31/21 History ramipriL [Altace] 5 mg PO DAILY 09/14/14 01/31/21 History HYDROcodone/APAP 10-325MG [[place] 1 tab PO QID 08/24/16 01/31/21 History 10-325] Ibuprofen [Motrin] 800 mg PO QID 08/24/16 01/31/21 History Zolpidem [Ambien] 10 mg PO HS 04/02/17 01/31/21 History Lenalidomide [Revlimid] 25 mg PO DIRECTED 11/13/20 01/31/21 History Ondansetron [Zofran ODT] 4 mg PO Q6H PRN 11/13/20 01/31/21 History SILVER sulfADIAZINE Cream 0.0625 inch TOPICAL DAILY PRN 11/13/20 01/31/21 History [Silvadene 1% Cream] Sulfamethox-Tmp 800-160Mg [Bactrim 1 tab PO MOWEFR 11/13/20 01/31/21 History DS 800-160 mg] INSULIN ASPART (NovoLOG) [NovoLOG 0 unit SQ ACHS 11/15/20 01/31/21 History (formulary)] INSULIN ASPART (NovoLOG) [NovoLOG 0 unit SQ ACHS #0 vial 11/15/20 01/31/21 Rx (formulary)] Insulin Detemir (Levemir) [Levemir] 24 unit SQ DAILY@0700 #3 vial 11/15/20 01/31/21 Rx Acyclovir 1 tab PO BID 01/03/21 01/31/21 History Allergies Allergy/AdvReac Type Severity Reaction Status Date / Time hydromorphone HCl AdvReac Hallucinati Verified 02/04/21 11:24 [From Dilaudid] ons meperidine HCl [From Demerol] AdvReac Hallucinati Verified 02/04/21 11:24 ons Physical Exam Vitals: Vital Signs Temp Pulse Resp BP Pulse Ox 02/04/21 11:24 98.2 F 86 18 110/67 99 Intake and Output 02/04/21 02/04/21 02/04/21 06:59 14:59 22:59 Other: Weight 155.582 kg Results 02/04/21 12:40 02/04/21 12:39 Cardiac Enzymes 02/04/21 02/04/21 Range/Units 12:39 12:39 AST 29 (17-59) U/L Troponin I 3.400 H* (0.000-0.034) ng/mL CBC 02/04/21 Range/Units 12:40 WBC 3.8 (3.8-10.6) k/uL RBC 3.02 L (4.30-5.90) m/uL Hgb 8.6 L (13.0-17.5) gm/dL Hct 25.3 L (39.0-53.0) % Plt Count 36 L D (150-450) k/uL Comprehensive Metabolic Panel 02/04/21 Range/Units 12:39 Sodium 133 L (137-145) mmol/L Potassium 3.8 (3.5-5.1) mmol/L Chloride 103 (98-107) mmol/L Carbon Dioxide 19 L (22-30) mmol/L BUN 19 (9-20) mg/dL Creatinine 1.21 (0.66-1.25) mg/dL Glucose 147 H (74-99) mg/dL Calcium 9.2 (8.4-10.2) mg/dL AST 29 (17-59) U/L ALT 19 (4-49) U/L Alkaline Phosphatase 83 (38-126) U/L Total Protein 6.0 L (6.3-8.2) g/dL Albumin 3.7 (3.5-5.0) g/dL Current Medications Generic Name Dose Route Start Last Admin Trade Name Freq PRN Reason Stop Dose Admin Aspirin 325 mg 02/05/21 09:00 Aspirin 325 Mg Tab PO DAILY UBALDO Nitroglycerin 0.4 mg 02/04/21 15:59 Nitroglycerin Sl Tabs 0.4 Mg Tab SUBLINGUAL Q5M PRN Chest Pain Nitroglycerin 1 inch 02/04/21 18:00 Nitroglycerin Oint 1 Inch/Gm Packet TOPICAL Q6HR UBALDO Intake and Output 02/04/21 02/04/21 02/04/21 06:59 14:59 22:59 Other: Weight 155.582 kg Patient Weight 02/05/21 06:59 Weight 155.582 kg 02/04/21 12:40 02/04/21 12:39
--- NOTE | 2021-02-04 17:16 | P.HPIM ---
History of Present Illness Patient is [id number] male came in with coverage chest pain and shortness of breath which started about a week and half ago chest pain is a retrosternal burning sensation he felt like he has some acid reflux the chest pain is also reproducible exertional and does have shortness of breath with ambulation patient chest pain appears to be a exertional as well as nonradiating [id number] severity does have pleuritic competent as well not associated with food choices or diaphoresis took [place] which didn't help denied any palpitations is complaining of lightheadedness along with nausea was complaining of some orthopnea as well. Patient was recently diagnosed with DVT and was started on Eliquis by oncology. Patient quit smoking about 3-4 months ago patient does have history of multiple myeloma on lenalidomide. Patient denied any fever chills Covid 19 a PCR is negative. Patient is found to have elevated troponin CT of the chest did not show any pulmonary embolism patient DVT is not known whether it's in the right or left leg as per the patient cardiac he was consulted. Patient is thrombocytopenic because of which patient was not started on IV heparin patient is on Percocet being held as well until patient was evaluated by hematology. She is found have mildly elevated BNP as well EKG no significant ST-T wave changes chest x-ray did show sternotomy wires without any acute cardio pulmonary process. Review of Systems REVIEW OF SYSTEMS: CONSTITUTIONAL: No fever, no malaise, no fatigue. HEENT: No recent visual problems or hearing problems. Denied any sore throat. CARDIOVASCULAR: No orthopnea, PND, no palpitations, no syncope. PULMONARY: no cough, no hemoptysis. GASTROINTESTINAL: No diarrhea, no nausea, no vomiting, no abdominal pain. NEUROLOGICAL: No headaches, no weakness, no numbness. HEMATOLOGICAL: Denies any bleeding or petechiae. GENITOURINARY: Denies any burning micturition, frequency, or urgency. MUSCULOSKELETAL/RHEUMATOLOGICAL: Denies any joint pain, swelling, or any muscle pain. ENDOCRINE: Denies any polyuria or polydipsia. The rest of the 14-point review of systems is negative. Past Medical History Past Medical History: Cancer, Diabetes Mellitus, Hypertension Additional Past Medical History / Comment(s): gout, chronic back/L hip pain, multiple mylemo, 2012 L hip surgery History of Any Multi-Drug Resistant Organisms: None Reported Past Surgical History: Orthopedic Surgery Additional Past Surgical History / Comment(s): thymus gland removal, HIP SURGERY., lap band by domo 2009 Past Anesthesia/Blood Transfusion Reactions: No Reported Reaction Past Psychological History: Depression Smoking Status: Former smoker Past Alcohol Use History: None Reported Past Drug Use History: None Reported Medications and Allergies Home Medications Medication Instructions Recorded Confirmed Type PARoxetine HCL [Paxil] 40 mg PO DAILY 04/29/14 02/04/21 History amLODIPine [Norvasc] 10 mg PO DAILY 09/14/14 02/04/21 History ramipriL [Altace] 5 mg PO DAILY 09/14/14 02/04/21 History HYDROcodone/APAP 10-325MG [[place] 1 tab PO QID 08/24/16 02/04/21 History 10-325] Ibuprofen [Motrin] 800 mg PO QID 08/24/16 02/04/21 History Zolpidem [Ambien] 10 mg PO HS 04/02/17 02/04/21 History Lenalidomide [Revlimid] 25 mg PO DIRECTED 11/13/20 02/04/21 History Ondansetron [Zofran ODT] 4 mg PO Q6H PRN 11/13/20 02/04/21 History Sulfamethox-Tmp 800-160Mg [Bactrim 1 tab PO MOWEFR 11/13/20 02/04/21 History DS 800-160 mg] Insulin Detemir (Levemir) [Levemir] 24 unit SQ DAILY@0700 #3 vial 11/15/20 02/04/21 Rx Acyclovir 1 tab PO BID 01/03/21 02/04/21 History ALPRAZolam [Xanax] 0.5 mg PO DAILY PRN 02/04/21 02/04/21 History Apixaban [Eliquis] 5 mg PO BID 02/04/21 02/04/21 History Aspirin EC [Ecotrin Low Dose] 81 mg PO DAILY 02/04/21 02/04/21 History Dexamethasone [Decadron] 4 mg PO DIRECTED 02/04/21 02/04/21 History INSULIN ASPART (NovoLOG) [NovoLOG See Protocol SQ ACHS 02/04/21 02/04/21 History (formulary)] Omeprazole 40 mg PO DAILY 02/04/21 02/04/21 History Allergies Allergy/AdvReac Type Severity Reaction Status Date / Time hydromorphone HCl AdvReac Hallucinati Verified 02/04/21 16:54 [From Dilaudid] ons meperidine HCl [From Demerol] AdvReac Hallucinati Verified 02/04/21 16:54 ons Physical Exam Vitals: Vital Signs Temp Pulse Resp BP Pulse Ox 02/04/21 11:24 98.2 F 86 18 110/67 99 Intake and Output 02/04/21 02/04/21 02/04/21 06:59 14:59 22:59 Other: Weight 155.582 kg PHYSICAL EXAMINATION: GENERAL: The patient is alert and oriented x3, not in any acute distress. Well developed, well nourished. Obese HEENT: Pupils are round and equally reacting to light. EOMI. No scleral icterus. No conjunctival pallor. Normocephalic, atraumatic. No pharyngeal erythema. No thyromegaly. CARDIOVASCULAR: S1 and S2 present. No murmurs, rubs, or gallops. PULMONARY: Chest is clear to auscultation, no wheezing or crackles. ABDOMEN: Soft, nontender, nondistended, normoactive bowel sounds. No palpable organomegaly. MUSCULOSKELETAL: No joint swelling or deformity. EXTREMITIES: No cyanosis, clubbing, or pedal edema. Lower extremity is d efinitely larger than the left NEUROLOGICAL: Gross neurological examination did not reveal any focal deficits. SKIN: No rashes. Results CBC & Chem 7: 02/04/21 12:40 02/04/21 12:39 Labs: Abnormal Lab Results - Last 24 Hours (Table) 02/04/21 02/04/21 02/04/21 Range/Units 12:39 12:39 12:40 RBC 3.02 L (4.30-5.90) m/uL Hgb 8.6 L (13.0-17.5) gm/dL Hct 25.3 L (39.0-53.0) % RDW 17.6 H (11.5-15.5) % Plt Count 36 L D (150-450) k/uL Lymphocytes # 0.2 L (1.0-4.8) k/uL Sodium 133 L (137-145) mmol/L Carbon Dioxide 19 L (22-30) mmol/L Glucose 147 H (74-99) mg/dL Troponin I 3.400 H* (0.000-0.034) ng/mL Total Protein 6.0 L (6.3-8.2) g/dL Assessment and Plan Plan: Possible acute non-ST elevation myocardial infarction: 2-D echo echocardiogram is being obtained Eliquis and heparin are being held because of thrombocytopenia, cardiology was consulted patient may need cardiac catheterization decision of which will be left to cardiology -Recent history of DVT anti-correlation is on hold because of her t hrombocytopenia hematology will be consulted -Type 2 diabetes mellitus -History of multiple myeloma on lenalidomide -Obesity -Type 2 diabetes mellitus -Hyponatremia AV hypervolemic hyponatremia may benefit from gentle hydration -Severe thrombocytopenia probably secondary to multiple myeloma -
[2021-02-04 17:43] LABS: Glucose,Whole Blood 146 mg/dL (75-99)
[2021-02-04] MEDS: METOPROLOL SUCCINATE (ER) 25 MG TAB.ER.24H PO SCH (18:14)
[2021-02-04] MEDS: ATORVASTATIN 80 MG TAB PO SCH (18:14)
[2021-02-04] MEDS: HYDROcodone/APAP 10-325MG 1 EACH TAB PO SCH (18:14)
[2021-02-04] MEDS: SODIUM CHLORIDE 0.9% 1,000 ML IV SCH (18:15)
[2021-02-04] MEDS: NITROGLYCERIN OINT 1 INCH/GM PACKET TOPICAL SCH (18:15)
[2021-02-04] MEDS ORDERED: ACYCLOVIR 200 MG CAP PO SCH (21:00)
[2021-02-04] MEDS ORDERED: ACYCLOVIR 200 MG CAP PO STA (22:37)
[2021-02-05] MEDS: HYDROcodone/APAP 10-325MG 1 EACH TAB PO SCH ×5 (01:15→20:43)
[2021-02-05] MEDS: NITROGLYCERIN OINT 1 INCH/GM PACKET TOPICAL SCH ×4 (01:15→17:58)
[2021-02-05 04:43] LABS: Anisocytosis Slight; HCT 23.3 % (39.0-53.0); HGB 7.9 gm/dL (13.0-17.5); Hypochromasia Slight; MCH 28.2 pg (25.0-35.0); MCHC 33.9 g/dL (31.0-37.0); MCV 83.3 fL (80.0-100.0); Mean Platelet Volume 12.1; Platelet Count 44 k/uL (150-450); Poikilocytosis Slight; RBC 2.79 m/uL (4.30-5.90); RDW 17.6 % (11.5-15.5); WBC 2.5 k/uL (3.8-10.6)
[2021-02-05 05:51] LABS: African American GFR (CKD) >90 (>60 ml/min/1.73 sqM); Anion Gap 8 mmol/L; Blood Urea Nitrogen 19 mg/dL (9-20); Calcium 9.3 mg/dL (8.4-10.2); Carbon Dioxide 21 mmol/L (22-30); Chloride 106 mmol/L (98-107); Cholesterol 181 mg/dL (<200); Glucose 143 mg/dL (74-99); HDL Cholesterol 51 mg/dL (40-60); LDL Cholesterol,Calculated 102 mg/dL (0-99); Non-African American GFR(CKD) 79 (>60 ml/min/1.73 sqM); Sodium 135 mmol/L (137-145); Triglycerides 142 mg/dL (<150)
[2021-02-05] MEDS: METOPROLOL SUCCINATE (ER) 25 MG TAB.ER.24H PO SCH (10:02)
[2021-02-05] MEDS: ACYCLOVIR 200 MG CAP PO SCH ×2 (10:02→20:44)
[2021-02-05] MEDS: ASPIRIN 325 MG TAB PO SCH (10:03)
[2021-02-05] MEDS: lisinopriL 20 MG TAB PO SCH (10:03)
[2021-02-05] MEDS: PARoxetine 20 MG TAB PO SCH (10:03)
[2021-02-05] MEDS: PANTOPRAZOLE 40 MG TABLET PO SCH (10:03)
[2021-02-05] MEDS: ATORVASTATIN 80 MG TAB PO SCH (10:04)
--- NOTE | 2021-02-05 12:39 | P.PN ---
Subjective Progress Note Date: 02/05/21 Principal diagnosis: Acute coronary syndrome This is a 55-year-old gentleman with a past medical history significant for diabetes and hypertension and dyslipidemia and also history of myelofibrosis and pancytopenia was admitted to the hospital with chest discomfort and shortness of breath and was diagnosed with acute coronary syndrome. The patient was seen earlier today at the extended stay unit. He remains asymptomatic from a cardiovascular standpoint of view, and he remains hemodynamically stable. Unfortunately the hemoglobin continues to be low as well as the platelets. He is on aspirin as well as atorvastatin as well as metoprolol. I discussed with him the 2 options of neck systemic including a conservative medical approach versus invasive medical approach. Giving the absence of any chest pain or chest discomfort and the absence of any ischemic ST or T-wave abnormalities on the EKG as well as the absence of any arrhythmia or heart failure I would advise a conservative medical approach giving his high risk of bleeding with an invasive approach. The patient is in full understanding and agreement. He underwent an echocardiogram earlier today and we will follow-up on that. Objective - Vital Signs Vital signs: Vital Signs Temp 98.2 F 02/04/21 11:24 Pulse 80 02/05/21 10:25 Resp 18 02/05/21 10:25 BP 138/78 02/05/21 10:25 Pulse Ox 100 02/05/21 10:25 Intake & Output 02/04/21 02/05/21 02/05/21 18:59 06:59 18:59 Weight 155.582 kg - Constitutional General appearance: Present: no acute distress - Respiratory Respiratory: bilateral: CTA - Cardiovascular Rhythm: regular Heart sounds: normal: S1, S2 - Labs CBC & Chem 7: 02/05/21 04:24 02/05/21 04:24 Labs: Abnormal Lab Results - Last 24 Hours (Table) 02/04/21 02/04/21 02/04/21 Range/Units 12:39 12:39 12:40 WBC (3.8-10.6) k/uL RBC 3.02 L (4.30-5.90) m/uL Hgb 8.6 L (13.0-17.5) gm/dL Hct 25.3 L (39.0-53.0) % RDW 17.6 H (11.5-15.5) % Plt Count 36 L D (150-450) k/uL Lymphocytes # 0.2 L (1.0-4.8) k/uL Sodium 133 L (137-145) mmol/L Carbon Dioxide 19 L (22-30) mmol/L Glucose 147 H (74-99) mg/dL POC Glucose (mg/dL) (75-99) mg/dL Troponin I 3.400 H* (0.000-0.034) ng/mL Total Protein 6.0 L (6.3-8.2) g/dL LDL Cholesterol, Calc (0-99) mg/dL 02/04/21 02/04/21 02/04/21 Range/Units 16:52 17:42 19:18 WBC (3.8-10.6) k/uL RBC (4.30-5.90) m/uL Hgb (13.0-17.5) gm/dL Hct (39.0-53.0) % RDW (11.5-15.5) % Plt Count (150-450) k/uL Lymphocytes # (1.0-4.8) k/uL Sodium (137-145) mmol/L Carbon Dioxide (22-30) mmol/L Glucose (74-99) mg/dL POC Glucose (mg/dL) 146 H (75-99) mg/dL Troponin I 2.560 H* 2.230 H* (0.000-0.034) ng/mL Total Protein (6.3-8.2) g/dL LDL Cholesterol, Calc (0-99) mg/dL 02/05/21 02/05/21 Range/Units 04:24 04:24 WBC 2.5 L (3.8-10.6) k/uL RBC 2.79 L (4.30-5.90) m/uL Hgb 7.9 L (13.0-17.5) gm/dL Hct 23.3 L (39.0-53.0) % RDW 17.6 H (11.5-15.5) % Plt Count 44 L (150-450) k/uL Lymphocytes # (1.0-4.8) k/uL Sodium 135 L (137-145) mmol/L Carbon Dioxide 21 L (22-30) mmol/L Glucose 143 H (74-99) mg/dL POC Glucose (mg/dL) (75-99) mg/dL Troponin I (0.000-0.034) ng/mL Total Protein (6.3-8.2) g/dL LDL Cholesterol, Calc 102 H (0-99) mg/dL Assessment and Plan Assessment: Assessment Acute non-ST elevation myocardial infarction Thrombocytopenia Anemia Multiple comorbid conditions Plan #1 continue the current medical regimen #2 follow-up on the echocardiogram
--- NOTE | 2021-02-05 13:22 | P.PN ---
Subjective Patient is 55-year-old male came in with coverage chest pain and shortness of breath which started about a week and half ago chest pain is a retrosternal burning sensation he felt like he has some acid reflux the chest pain is also reproducible exertional and does have shortness of breath with ambulation patient chest pain appears to be a exertional as well as nonradiating [id number] severity does have pleuritic competent as well not associated with food choices or diaphoresis took [place] which didn't help denied any palpitations is complaining of lightheadedness along with nausea was complaining of some orthopnea as well. Patient was recently diagnosed with DVT and was started on Eliquis by oncology. Patient quit smoking about 3-4 months ago patient does have history of multiple myeloma on lenalidomide. Patient denied any fever chills Covid 19 a PCR is negative. Patient is found to have elevated troponin CT of the chest did not show any pulmonary embolism patient DVT is not known whether it's in the right or left leg as per the patient cardiac he was consulted. Patient is thrombocytopenic because of which patient was not started on IV heparin patient is on Percocet being held as well until patient was evaluated by hematology. She is found have mildly elevated BNP as well EKG no significant ST-T wave changes chest x-ray did show sternotomy wires without any acute cardio pulmonary process. 02/05/2021 Patient was evaluated by cardiology, medical management is being continued no plan for any intervention at this time patient is not on IV heparin because of the thrombocytopenia. Discussed with the oncologist. Patient's myeloma treatment will be held which will help with platelet count. Patient apparently had a chronic DVT in the leg which was identified about a month ago, anti- correlation will be held because of thrombocytopenia patient's platelet count today improved to around 45,000. Patient doesn't have any chest pain today. Constitutional: Denied any fatigue denied any fever. Cardio vascular: denied any chest pain, palpitations Gastrointestinal denied any nausea vomiting Pulmonary: Denied any shortness of breath cough Neurologic denied any new focal deficits All inpatient medications were reviewed and appropriate changes in these medications as dictated in the interval history and assessment and plan. Objective - Vital Signs Vital signs: Vital Signs Temp 98.2 F 02/04/21 11:24 Pulse 80 02/05/21 10:25 Resp 18 02/05/21 10:25 BP 138/78 02/05/21 10:25 Pulse Ox 100 02/05/21 10:25 Intake & Output 02/04/21 02/05/21 02/05/21 18:59 06:59 18:59 Weight 155.582 kg - Exam PHYSICAL EXAMINATION: GENERAL: The patient is alert and oriented x3, not in any acute distress. Well developed, well nourished. Obese HEENT: Pupils are round and equally reacting to light. EOMI. No scleral icterus. No conjunctival pallor. Normocephalic, atraumatic. No pharyngeal erythema. No thyromegaly. CARDIOVASCULAR: S1 and S2 present. No murmurs, rubs, or gallops. PULMONARY: Chest is clear to auscultation, no wheezing or crackles. ABDOMEN: Soft, nontender, nondistended, normoactive bowel sounds. No palpable organomegaly. MUSCULOSKELETAL: No joint swelling or deformity. EXTREMITIES: No cyanosis, clubbing, or pedal edema. Lower extremity is definitely larger than the left NEUROLOGICAL: Gross neurological examination did not reveal any focal deficits. SKIN: No rashes. - Labs CBC & Chem 7: 02/05/21 04:24 02/05/21 04:24 Labs: Abnormal Lab Results - Last 24 Hours (Table) 02/04/21 02/04/21 02/04/21 Range/Units 12:39 12:39 12:40 WBC (3.8-10.6) k/uL RBC (4.30-5.90) m/uL Hgb (13.0-17.5) gm/dL Hct (39.0-53.0) % RDW (11.5-15.5) % Plt Count 36 L D (150-450) k/uL Lymphocytes # 0.2 L (1.0-4.8) k/uL Sodium 133 L (137-145) mmol/L Carbon Dioxide 19 L (22-30) mmol/L Glucose 147 H (74-99) mg/dL POC Glucose (mg/dL) (75-99) mg/dL Troponin I 3.400 H* (0.000-0.034) ng/mL Total Protein 6.0 L (6.3-8.2) g/dL LDL Cholesterol, Calc (0-99) mg/dL 02/04/21 02/04/21 02/04/21 Range/Units 16:52 17:42 19:18 WBC (3.8-10.6) k/uL RBC (4.30-5.90) m/uL Hgb (13.0-17.5) gm/dL Hct (39.0-53.0) % RDW (11.5-15.5) % Plt Count (150-450) k/uL Lymphocytes # (1.0-4.8) k/uL Sodium (137-145) mmol/L Carbon Dioxide (22-30) mmol/L Glucose (74-99) mg/dL POC Glucose (mg/dL) 146 H (75-99) mg/dL Troponin I 2.560 H* 2.230 H* (0.000-0.034) ng/mL Total Protein (6.3-8.2) g/dL LDL Cholesterol, Calc (0-99) mg/dL 02/05/21 02/05/21 Range/Units 04:24 04:24 WBC 2.5 L (3.8-10.6) k/uL RBC 2.79 L (4.30-5.90) m/uL Hgb 7.9 L (13.0-17.5) gm/dL Hct 23.3 L (39.0-53.0) % RDW 17.6 H (11.5-15.5) % Plt Count 44 L (150-450) k/uL Lymphocytes # (1.0-4.8) k/uL Sodium 135 L (137-145) mmol/L Carbon Dioxide 21 L (22-30) mmol/L Glucose 143 H (74-99) mg/dL POC Glucose (mg/dL) (75-99) mg/dL Troponin I (0.000-0.034) ng/mL Total Protein (6.3-8.2) g/dL LDL Cholesterol, Calc 102 H (0-99) mg/dL Assessment and Plan Plan: Possible acute non-ST elevation myocardial infarction: 2-D echo echocardiogram is being obtained Eliquis and heparin are being held because of thrombocytopenia, medical management is being recommended by cardiology because of high bleeding risk because of thrombocytopenia. -Chronic DVT: Anti-correlation is on hold because of thrombocytopenia. Oncology evaluated the patient, multiple myeloma treatment, lenalidomide is being held secondary to from cytopenia -Type 2 diabetes mellitus -History of multiple myeloma on lenalidomide -Obesity -Type 2 diabetes mellitus -Hyponatremia AV hypervolemic hyponatremia may benefit from gentle hydration -Severe thrombocytopenia probably secondary to multiple myeloma and chemotherapy -
--- NOTE | 2021-02-05 13:44 | P.CONS ---
History of Present Illness - Reason for Consult Consult date: 02/05/21 Myeloma, [facility] Requesting physician: Beatriz Granado - Chief Complaint chest pain - History of Present Illness Mr. Chandler is a very pleasant male referred to Dr. Méndez for anemia, hemoglobin of 8.6, labs done 07/23/20. MCV was 84, CBC indices otherwise normal, RDW increased at 16.4%, chem panel within normal limits, blood glucose was 182. Patient had a colonoscopy 05/21, small rectal polyps removed, pathology revealed hyperplastic polyps. Patient was not on any antiplatelet agents or anticoagulation. Using ibuprofen regularly for degenerative joint disease. Patient had occasionally seen bright red blood on the toilet after bowel movements on multiple occasions. Had a colonoscopy, told he had hemorrhoids. No recollection and EGD. Workup showed a monoclonal gammopathy, M protein 0.2 g/dL. Lambda light chain 108.3. Bone marrow aspiration biopsy 09/24/20, confirmed multiple myeloma, with about 80% involvement of the bone marrow with lambda restricted plasma cells. Multiple myeloma FISH study was negative. Patient received the diagnosis 10/03/20. He was seen in the office for treatment education 10/08. Patient showed up in the office on 10/23 to discuss anxieties and fears regarding treatment. Patient showed up again in the office on 11/08 for reinforcement, he had still not started treatment. Patient started treatment 11/12/20. He was hospitalized for hyperglycemia secondary to the high-dose steroids related to treatment. He is now started on insulin. Since that time he has been doing rather well on treatment. He's had about a 50% reduction in his disease burden. Patient is seen in the ER, he has elevated troponins. States that he had some chest pain for several days prior, his chest pain is doing well with med ications. He is no longer experiencing diaphoresis, denies fevers, chills, nausea or vomiting, shortness of breath is a little bit better but, he hasn't ambulated very far, his activity tolerance was restricted to less than 10 feet. No acute changes in bowel or bladder habits, he is on anticoagulation for a chronic DVT. He has no other symptoms to report on a 10 point review of systems. Review of Systems 14 point ROS is neg except as stated in HPI Past Medical History Past Medical History: Cancer, Diabetes Mellitus, Hypertension Additional Past Medical History / Comment(s): gout, chronic back/L hip pain, multiple myeloma, 2012 L hip surgery History of Any Multi-Drug Resistant Organisms: None Reported Past Surgical History: Orthopedic Surgery Additional Past Surgical History / Comment(s): thymus gland removal, HIP SURGERY., lap band by romelt 2009 Past Anesthesia/Blood Transfusion Reactions: No Reported Reaction Past Psychological History: Depression Smoking Status: Former smoker Past Alcohol Use History: None Reported Past Drug Use History: None Reported Medications and Allergies Home Medications Medication Instructions Recorded Confirmed Type PARoxetine HCL [Paxil] 40 mg PO DAILY 04/29/14 02/04/21 History amLODIPine [Norvasc] 10 mg PO DAILY 09/14/14 02/04/21 History ramipriL [Altace] 5 mg PO DAILY 09/14/14 02/04/21 History HYDROcodone/APAP 10-325MG [Udall 1 tab PO QID 08/24/16 02/04/21 History 10-325] Ibuprofen [Motrin] 800 mg PO QID 08/24/16 02/04/21 History Zolpidem [Ambien] 10 mg PO HS 04/02/17 02/04/21 History Lenalidomide [Revlimid] 25 mg PO DIRECTED 11/13/20 02/04/21 History Ondansetron [Zofran ODT] 4 mg PO Q6H PRN 11/13/20 02/04/21 History Sulfamethox-Tmp 800-160Mg [Bactrim 1 tab PO MOWEFR 11/13/20 02/04/21 History DS 800-160 mg] Insulin Detemir (Levemir) [Levemir] 24 unit SQ DAILY@0700 #3 vial 11/15/20 02/04/21 Rx Acyclovir 1 tab PO BID 01/03/21 02/04/21 History ALPRAZolam [Xanax] 0.5 mg PO DAILY PRN 02/04/21 02/04/21 History Apixaban [Eliquis] 5 mg PO BID 02/04/21 02/04/21 History Aspirin EC [Ecotrin Low Dose] 81 mg PO DAILY 02/04/21 02/04/21 History Dexamethasone [Decadron] 20 mg PO MO 02/04/21 02/04/21 History INSULIN ASPART (NovoLOG) [NovoLOG See Protocol SQ ACHS 02/04/21 02/04/21 History (formulary)] Omeprazole 40 mg PO DAILY 02/04/21 02/04/21 History Allergies Allergy/AdvReac Type Severity Reaction Status Date / Time hydromorphone HCl AdvReac Hallucinati Verified 02/04/21 16:54 [From Dilaudid] ons meperidine HCl [From Demerol] AdvReac Hallucinati Verified 02/04/21 16:54 ons Physical Exam Vitals: Vital Signs Temp Pulse Resp BP Pulse Ox 02/05/21 10:05 67 20 124/74 96 02/05/21 06:35 63 18 117/67 94 L 02/05/21 02:30 77 16 118/64 98 02/04/21 18:18 74 16 115/58 98 02/04/21 11:24 98.2 F 86 18 110/67 99 - Constitutional General appearance: cooperative, morbidly obese, no acute distress - EENT Eyes: anicteric sclerae, EOMI ENT: hearing grossly normal, normal oropharynx - Neck Neck: no lymphadenopathy - Respiratory Respiratory: bilateral: CTA - Cardiovascular Rhythm: regular Heart sounds: normal: S1, S2 Abnormal Heart Sounds: no systolic murmur, no diastolic murmur, no rub, no S3 Gallop, no S4 Gallop, no click, no other leg Peripheral Edema: bilateral: Trace - Gastrointestinal General gastrointestinal: no absent bowel sounds, no decreased bowel sounds, no distended, no hepatomegaly, no hyperactive bowel sounds, normal bowel sounds, no organomegaly, no rigid, no scaphoid, soft, no splenomegaly, no tenderness, no umbilical hernia, no ventral hernia - Integumentary Integumentary: normal - Neurologic Neurologic: CNII-XII intact - Musculoskeletal Musculoskeletal: strength equal bilaterally - Psychiatric Psychiatric: A&O x's 3, appropriate affect, intact judgment & insight Results CBC & Chem 7: 02/05/21 04:24 02/05/21 04:24 Labs: Abnormal Lab Results - Last 24 Hours (Table) 02/04/21 02/04/21 02/04/21 Range/Units 12:39 12:39 12:40 WBC (3.8-10.6) k/uL RBC 3.02 L (4.30-5.90) m/uL Hgb 8.6 L (13.0-17.5) gm/dL Hct 25.3 L (39.0-53.0) % RDW 17.6 H (11.5-15.5) % Plt Count 36 L D (150-450) k/uL Lymphocytes # 0.2 L (1.0-4.8) k/uL Sodium 133 L (137-145) mmol/L Carbon Dioxide 19 L (22-30) mmol/L Glucose 147 H (74-99) mg/dL POC Glucose (mg/dL) (75-99) mg/dL Troponin I 3.400 H* (0.000-0.034) ng/mL Total Protein 6.0 L (6.3-8.2) g/dL LDL Cholesterol, Calc (0-99) mg/dL 02/04/21 02/04/21 02/04/21 Range/Units 16:52 17:42 19:18 WBC (3.8-10.6) k/uL RBC (4.30-5.90) m/uL Hgb (13.0-17.5) gm/dL Hct (39.0-53.0) % RDW (11.5-15.5) % Plt Count (150-450) k/uL Lymphocytes # (1.0-4.8) k/uL Sodium (137-145) mmol/L Carbon Dioxide (22-30) mmol/L Glucose (74-99) mg/dL POC Glucose (mg/dL) 146 H (75-99) mg/dL Troponin I 2.560 H* 2.230 H* (0.000-0.034) ng/mL Total Protein (6.3-8.2) g/dL LDL Cholesterol, Calc (0-99) mg/dL 02/05/21 02/05/21 Range/Units 04:24 04:24 WBC 2.5 L (3.8-10.6) k/uL RBC 2.79 L (4.30-5.90) m/uL Hgb 7.9 L (13.0-17.5) gm/dL Hct 23.3 L (39.0-53.0) % RDW 17.6 H (11.5-15.5) % Plt Count 44 L (150-450) k/uL Lymphocytes # (1.0-4.8) k/uL Sodium 135 L (137-145) mmol/L Carbon Dioxide 21 L (22-30) mmol/L Glucose 143 H (74-99) mg/dL POC Glucose (mg/dL) (75-99) mg/dL Troponin I (0.000-0.034) ng/mL Total Protein (6.3-8.2) g/dL LDL Cholesterol, Calc 102 H (0-99) mg/dL Chest x-ray: report reviewed CT scan - chest: report reviewed Assessment and Plan (1) Non-STEMI (non-ST elevated myocardial infarction) Narrative/Plan: Discussed with Cardiology. Ok to give platelets so that level will be > 50,000-adequate for anticoagulation and antiplatelet therapy/start heparin drip if needed. Pt can have procedure s/be medicated for CO from Hem/Onc standpoint. Current Visit: Yes Status: Acute Priority: High Code(s): I21.4 - NON-ST ELEVATION (NSTEMI) MYOCARDIAL INFARCTION SNOMED Code(s): 50665152 (2) Multiple myeloma Narrative/Plan: Pt myeloma numbers are much improved since starting treatment. It is reasonable to hold therapy until acute cardiac event is treated and managed. Pt advised to cont prophylactic doses of bactrim and acyclovir. He verbalized understanding Current Visit: No Status: Chronic Priority: Medium Code(s): C90.00 - MULTIPLE MYELOMA NOT HAVING ACHIEVED REMISSION SNOMED Code(s): 825784987 Plan: Doctor attests: I performed a history and physical examination of this patient, developed impression and plan of care. Discussed with dictator. I agree with dictators note, documented as a scribe.
[2021-02-05] MEDS: INSULIN DETEMIR (LEVEMIR) 100 UNIT/ML SYR SQ SCH (15:43)
[2021-02-05 16:42] LABS: Glucose,Whole Blood 158 mg/dL (75-99)
[2021-02-05] MEDS: SODIUM CHLORIDE 0.9% 1,000 ML IV SCH ×2 (16:58→23:08)
--- NOTE | 2021-02-05 17:36 | ECHOF ---
Referral Reason:shortness of breath MEASUREMENTS -------- HEIGHT: 177.8 cm WEIGHT: 155.6 kg BP: IVSd: 1.7 cm (0.6 - 1.1) LVIDd: 4.3 cm (3.9 - 5.3) LVPWd: 1.9 cm (0.6 - 1.1) EDV(Teich): 84 ml IVSs: 2.1 cm LVIDs: 3.4 cm LVPWs: 2.2 cm %IVS Thck: 28 % ESV(Teich): 49 ml EF(Teich): 42 % %FS: 21 % SV(Teich): 35 ml LA Diam: 4.0 cm (2.7 - 3.8) RVIDd: 3.4 cm (< 3.3) IVC: 27.28 mm LALs A4C: 5.3 cm LAAs A4C: 21.6 cm LAESV A-L A4C: 75 ml LAESV MOD A4C: 68 ml LALs A2C: 5.4 cm LAAs A2C: 21.2 cm LAESV A-L A2C: 71 ml LAESV MOD A2C: 68 ml LAESV(A-L): 74 ml LAESV Index (A-L): 27.97 ml/m Ao Diam: 3.6 cm (2.0 - 3.7) AV Cusp: 2.4 cm (1.5 - 2.6) EPSS: 1.7 cm MV E Thomas: 0.92 m/s MV DecT: 201 ms MV Dec Holmes: 4.6 m/s MV A Thomas: 1.03 m/s MV E/A Ratio: 0.89 MV PHT: 58 ms AV Vmax: 1.37 m/s AV maxP.47 mmHg TR Vmax: 2.55 m/s TR maxP.96 mmHg RAP: 15.00 mmHg RVSP: 40.96 mmHg MV EF SLOPE: 45.45 mm/s (70 - 150) MV EXCURSION: 21.39 mm (> 18.000) FINDINGS -------- Sinus rhythm. This was a technically difficult study with suboptimal views. The left ventricular size is normal. There is severe concentric left ventricular hypertrophy. Ove rall left ventricular systolic function is low-normal with, an EF between 50 - 55 %. The right ventricle is mildly enlarged. Normal LA size by volume 22+/-6 ml/m2. The right atrium is normal in size. Lumason used Interatrial and interventricular septum intact. Aortic valve is trileaflet and is mildly thickened. Eeal-ko-auhhgrri mitral regurgitation is present. Mild tricuspid regurgitation present. There is mild pulmonary hypertension. The right ventricular systolic pressure, as measured by Doppler, is 40.96mmHg. The pulmonic valve was not well visualized. The aortic root size is normal. The inferior vena cava is dilated with poor inspiratory collapse which is consistent with estimated r ight atrial pressure of 15 mmHg. There is no pericardial effusion. CONCLUSIONS -------- 1. The left ventricular size is normal. 2. There is severe concentric left ventricular hypertrophy. 3. Overall left ventricular systolic function is low-normal with, an EF between 50 - 55 %. 4. The right ventricle is mildly enlarged. 5. Lumason used 6. Aortic valve is trileaflet and is mildly thickened. 7. Yflm-jm-pzzwzaba mitral regurgitation is present. 8. Mild tricuspid regurgitation present. 9. There is mild pulmonary hypertension. 10. The right ventricular systolic pressure, as measured by Doppler, is 40.96mmHg. 11. The inferior vena cava is dilated with poor inspiratory collapse which is consistent with estimat ed right atrial pressure of 15 mmHg. 12. There is no pericardial effusion. PHYSIOTHERAPIST'S ASSISTANT: Drea Patiño RDCS
[2021-02-05 20:16] LABS: Glucose,Whole Blood 144 mg/dL (75-99)
[2021-02-05] MEDS: ONDANSETRON ODT 4 MG TAB PO PRN (20:39)
[2021-02-05] MEDS: ALPRAZolam 0.5 MG TAB PO PRN (20:43)
[2021-02-06] MEDS: NITROGLYCERIN OINT 1 INCH/GM PACKET TOPICAL SCH ×4 (00:55→18:17)
[2021-02-06] MEDS: ONDANSETRON ODT 4 MG TAB PO PRN (02:52)
[2021-02-06 06:09] LABS: Glucose,Whole Blood 115 mg/dL (75-99)
[2021-02-06] MEDS: INSULIN DETEMIR (LEVEMIR) 100 UNIT/ML SYR SQ SCH (06:16)
[2021-02-06] MEDS: PANTOPRAZOLE 40 MG TABLET PO SCH (06:17)
[2021-02-06] MEDS: ACYCLOVIR 200 MG CAP PO SCH ×2 (09:56→21:01)
[2021-02-06] MEDS: ASPIRIN 325 MG TAB PO SCH (09:56)
[2021-02-06] MEDS: ATORVASTATIN 80 MG TAB PO SCH (09:59)
[2021-02-06] MEDS: HYDROcodone/APAP 10-325MG 1 EACH TAB PO SCH ×4 (09:59→21:01)
[2021-02-06] MEDS: lisinopriL 20 MG TAB PO SCH (10:02)
[2021-02-06] MEDS: METOPROLOL SUCCINATE (ER) 25 MG TAB.ER.24H PO SCH (10:02)
[2021-02-06] MEDS: PARoxetine 20 MG TAB PO SCH (10:02)
[2021-02-06] MEDS: SULFAMETHOX-TMP 800-160MG 1 EACH TAB PO SCH (10:03)
[2021-02-06 11:40] LABS: Calcium 9.2 mg/dL (8.4-10.2); Potassium 3.9 mmol/L (3.5-5.1)
[2021-02-06 11:46] VITALS: BMI 49.2
[2021-02-06 11:51] LABS: Anisocytosis Slight; HCT 23.4 % (39.0-53.0); Hypochromasia Slight; MCH 28.9 pg (25.0-35.0); MCHC 34.3 g/dL (31.0-37.0); MCV 84.2 fL (80.0-100.0); Mean Platelet Volume 10.3; Poikilocytosis Slight; RBC 2.78 m/uL (4.30-5.90); RDW 17.5 % (11.5-15.5); WBC 3.5 k/uL (3.8-10.6)
[2021-02-06] MEDS: SODIUM CHLORIDE 0.9% 1,000 ML IV SCH ×2 (11:56→16:34)
[2021-02-06 12:00] LABS: Platelet Count 69 k/uL (150-450)
[2021-02-06 12:03] LABS: Glucose,Whole Blood 146 mg/dL (75-99)
--- NOTE | 2021-02-06 13:12 | P.PN ---
Subjective Progress Note Date: 02/06/21 Objective - Vital Signs Vital signs: Vital Signs Temp 97.8 F 02/06/21 12:38 Pulse 71 02/06/21 12:38 Resp 16 02/06/21 12:38 BP 116/73 02/06/21 12:38 Pulse Ox 98 02/06/21 07:57 Intake & Output 02/05/21 02/06/21 02/06/21 18:59 06:59 18:59 Intake Total 240 480 240 Output Total 800 Balance 240 -320 240 Weight 155.582 kg 155.6 kg 155.6 kg Intake: Oral 240 480 240 Output: Urine 800 Other: Voiding Method Urinal # Bowel Movements 1 - Labs CBC & Chem 7: 02/06/21 09:41 02/06/21 09:41 Labs: Abnormal Lab Results - Last 24 Hours (Table) 02/05/21 02/05/21 02/06/21 Range/Units 16:41 20:14 06:07 WBC (3.8-10.6) k/uL RBC (4.30-5.90) m/uL Hgb (13.0-17.5) gm/dL Hct (39.0-53.0) % RDW (11.5-15.5) % Plt Count (150-450) k/uL Sodium (137-145) mmol/L BUN (9-20) mg/dL Glucose (74-99) mg/dL POC Glucose (mg/dL) 158 H 144 H 115 H (75-99) mg/dL 02/06/21 02/06/21 02/06/21 Range/Units 09:41 09:41 11:59 WBC 3.5 L (3.8-10.6) k/uL RBC 2.78 L (4.30-5.90) m/uL Hgb 8.0 L (13.0-17.5) gm/dL Hct 23.4 L (39.0-53.0) % RDW 17.5 H (11.5-15.5) % Plt Count 69 L D (150-450) k/uL Sodium 135 L (137-145) mmol/L BUN 27 H (9-20) mg/dL Glucose 190 H (74-99) mg/dL POC Glucose (mg/dL) 146 H (75-99) mg/dL Assessment and Plan (1) Non-STEMI (non-ST elevated myocardial infarction) Narrative/Plan: Dr. Méndez is going to discuss the case further with Cardiology. Treatment of cardiac conditions is very reasonable. His myeloma is currently controlled and, there are multiple lines of therapy. Patient's platelets 69,000 today. Current Visit: Yes Status: Acute Priority: High Code(s): I21.4 - NON-ST ELEVATION (NSTEMI) MYOCARDIAL INFARCTION SNOMED Code(s): 87055360 (2) Multiple myeloma Narrative/Plan: Pt myeloma numbers are much improved since starting treatment. It is reasonable to hold therapy until acute cardiac event is treated and managed. Pt advised to cont prophylactic doses of bactrim and acyclovir. He verbalized understanding Current Visit: No Status: Chronic Priority: Medium Code(s): C90.00 - MULTIPLE MYELOMA NOT HAVING ACHIEVED REMISSION SNOMED Code(s): 165641842 Plan: Doctor attests: I performed a history and physical examination of this patient, developed impression and plan of care. Discussed with dictator. I agree with dictators note, documented as a scribe.
--- NOTE | 2021-02-06 14:30 | P.PN ---
Subjective Patient is 55-year-old male came in with coverage chest pain and shortness of breath which started about a week and half ago chest pain is a retrosternal burning sensation he felt like he has some acid reflux the chest pain is also reproducible exertional and does have shortness of breath with ambulation patient chest pain appears to be a exertional as well as nonradiating [id number] severity does have pleuritic competent as well not associated with food choices or diaphoresis took [place] which didn't help denied any palpitations is complaining of lightheadedness along with nausea was complaining of some orthopnea as well. Patient was recently diagnosed with DVT and was started on Eliquis by oncology. Patient quit smoking about 3-4 months ago patient does have history of multiple myeloma on lenalidomide. Patient denied any fever chills Covid 19 a PCR is negative. Patient is found to have elevated troponin CT of the chest did not show any pulmonary embolism patient DVT is not known whether it's in the right or left leg as per the patient cardiac he was consulted. Patient is thrombocytopenic because of which patient was not started on IV heparin patient is on Percocet being held as well until patient was evaluated by hematology. She is found have mildly elevated BNP as well EKG no significant ST-T wave changes chest x-ray did show sternotomy wires without any acute cardio pulmonary process. 02/05/2021 Patient was evaluated by cardiology, medical management is being continued no plan for any intervention at this time patient is not on IV heparin because of the thrombocytopenia. Discussed with the oncologist. Patient's myeloma treatment will be held which will help with platelet count. Patient apparently had a chronic DVT in the leg which was identified about a month ago, anti- correlation will be held because of thrombocytopenia patient's platelet count today improved to around 45,000. Patient doesn't have any chest pain today. 02/06/2021 Patient's platelets improved patient is still having some symptoms of a concurrent syndromes that is mostly shortness of breath although no chest pain at this time, cardiology will follow the patient and probably will undergo that a catheterization. Awaiting cardiology recommendations. Patient's platelet count is presently 69,000 Constitutional: Denied any fatigue denied any fever. Cardio vascular: denied any chest pain, palpitations Gastrointestinal denied any nausea vomiting Pulmonary: Denied any shortness of breath cough Neurologic denied any new focal deficits All inpatient medications were reviewed and appropriate changes in these medications as dictated in the interval history and assessment and plan. Objective - Vital Signs Vital signs: Vital Signs Temp 97.8 F 02/06/21 12:38 Pulse 71 02/06/21 12:38 Resp 16 02/06/21 12:38 BP 116/73 02/06/21 12:38 Pulse Ox 98 02/06/21 07:57 Intake & Output 02/05/21 02/06/21 02/06/21 18:59 06:59 18:59 Intake Total 240 480 480 Output Total 800 Balance 240 -320 480 Weight 155.582 kg 155.6 kg 155.6 kg Intake: Oral 240 480 480 Output: Urine 800 Other: Voiding Method Urinal # Voids 2 # Bowel Movements 1 - Exam PHYSICAL EXAMINATION: GENERAL: The patient is alert and oriented x3, not in any acute distress. Well developed, well nourished. Obese HEENT: Pupils are round and equally reacting to light. EOMI. No scleral icterus. No conjunctival pallor. Normocephalic, atraumatic. No pharyngeal erythema. No thyromegaly. CARDIOVASCULAR: S1 and S2 present. No murmurs, rubs, or gallops. PULMONARY: Chest is clear to auscultation, no wheezing or crackles. ABDOMEN: Soft, nontender, nondistended, normoactive bowel sounds. No palpable organomegaly. MUSCULOSKELETAL: No joint swelling or deformity. EXTREMITIES: No cyanosis, clubbing, or pedal edema. Lower extremity is definitely larger than the left NEUROLOGICAL: Gross neurological examination did not reveal any focal deficits. SKIN: No rashes. - Labs CBC & Chem 7: 02/06/21 09:41 02/06/21 09:41 Labs: Abnormal Lab Results - Last 24 Hours (Table) 02/05/21 02/05/21 02/06/21 Range/Units 16:41 20:14 06:07 WBC (3.8-10.6) k/uL RBC (4.30-5.90) m/uL Hgb (13.0-17.5) gm/dL Hct (39.0-53.0) % RDW (11.5-15.5) % Plt Count (150-450) k/uL Sodium (137-145) mmol/L BUN (9-20) mg/dL Glucose (74-99) mg/dL POC Glucose (mg/dL) 158 H 144 H 115 H (75-99) mg/dL 02/06/21 02/06/21 02/06/21 Range/Units 09:41 09:41 11:59 WBC 3.5 L (3.8-10.6) k/uL RBC 2.78 L (4.30-5.90) m/uL Hgb 8.0 L (13.0-17.5) gm/dL Hct 23.4 L (39.0-53.0) % RDW 17.5 H (11.5-15.5) % Plt Count 69 L D (150-450) k/uL Sodium 135 L (137-145) mmol/L BUN 27 H (9-20) mg/dL Glucose 190 H (74-99) mg/dL POC Glucose (mg/dL) 146 H (75-99) mg/dL Assessment and Plan Plan: Possible acute non-ST elevation myocardial infarction: 2-D echo echocardiogram i s being obtained Eliquis and heparin are being held because of thrombocytopenia, thrombocytopenia although now resolved patient probably will undergo cardiac catheterization. Patient was started on IV heparin today -Chronic DVT: Eliquis is on hold because of thrombocytopenia on admission. Oncology evaluated the patient, multiple myeloma treatment, lenalidomide is being held secondary to thrombocytopenia. -Type 2 diabetes mellitus -History of multiple myeloma on lenalidomide -Obesity -Type 2 diabetes mellitus -Hyponatremia AV hypervolemic hyponatremia may benefit from gentle hydration -Severe thrombocytopenia probably secondary to multiple myeloma and chemotherapy -
[2021-02-06] MEDS ORDERED: IV FLUID CONTINUATION 1,000 ML IV ONE (15:04)
--- NOTE | 2021-02-06 15:16 | P.PN ---
Subjective This is a pleasant 55-year-old male past medical history significant for hypertension, type 2 diabetes, former nicotine dependence (quit 3 months ago, was smoking 1/2pp), recent diagnosis of DVT (he is unsure what leg) and was started on Eliquis, multiple myeloma follows with Dr. Méndez (recent chemotherapy treatment on thrusday). He does not follow with a cardiolgoist. We have been asked to see in consultation for elevated troponin. Patient is seen and examined in the emergency department. Patient states he started having shortness of breath a week and half ago and progressively has gotten worse. He usually can walk 1-3 blocks and now cannot walk 2-3 feet without feeling short of breath. He also endorses lower extremity edema. He also endorses some chest pain. It is located on the left side of his chest, it is sometimes exertional. It is non- radiating. It worsens when he takes a deep breath or coughs. Associated with diaphoresis. He has taken [place] at home for the pain and it does not help. He denies palpitations. He states he sometimes does get lightheaded and feels that he may pass out. He does feel short of breath when lying flat. He states that since he has started Eliquis for his DVT he has had worsening shortness of breath. He also endorses having some abdominal pain and nausea in the morning. Laboratory data reviewed, troponin 2.4, BNP 2030, sodium 133, potassium 3.8, serum creatinine 1.1, magnesium 1.9, WBC 3.8, hemoglobin 8.6, platelets 36 Vital signs blood pressure 110/67, heart rate 86, afebrile, maintaining oxygen saturation on room air. Current home cardiac medications include amlodipine 10 mg daily, Eliquis 5mg BID, last taken 02/04/21 morning. DIAGNOSTICS EKG reveals sinus rhythm heart rate 79, no significant ST elevation or ST-T wave abnormalities seen. No significant changes from prior Telemetry tracings at bedside- appear sinus mechanism with HR 70s Chest xray median sternotomy wires are present, heart limits of normal size, mild interstitial prominence is unchanged. CT chest negative for pulmonary embolism Echocardiogram continuous function is normal with an EF between 5055 percent, RV is mildly enlarged, mild to moderate MR, mild TR, mild pulmonary hypertension 4/7/21: Patient seen and examined at bedside, no acute distress. Patient with worsening exertional shortness of breath. He continues to need Oxygen when walking or doing activities. Even doing simple activity he states he feels fatigued and short of breath. Patient denies chest pain, palpitations or weakness. Does feel fatgiued. Vitals signs blood pressure 117/60, heart rate 72, afebrile, maintaining saturations on room air. Patient currently maintained on aspirin 325 mg daily, atorvastatin 80 mg daily, lisinopril 20 mg daily, which most worsening 25 mg daily. Laboratory data reviewed, WBC 3.5, hemoglobin 8.0, platelets 69, sodium 135, potassium 3.9, serum creatinine 1.19, BUN 27 PHYSICAL EXAMINATION CONSTITUTIONAL: No apparent distress. HEENT: Head is normocephalic. Pupils are equal, round. Sclerae anicteric. Mucous membranes of the mouth are moist. No JVD. No carotid bruit. CHEST EXAMINATION: Lungs are clear to auscultation. No chest wall tenderness is noted on palpation or with deep breathing. HEART EXAMINATION: Regular rate and rhythm. S1, S2 heard. No murmurs, gallops or rub. ABDOMEN: Soft, nontender. Positive bowel sounds. EXTREMITIES: 2+ peripheral pulses, mild bilateral lower extremity edema and no calf tenderness. SKIN: intact NEUROLOGIC EXAMINATION: Patient is awake, alert and oriented x3. ASSESSMENT NSTEMI Thrombocytopenia History of hypertension Type 2 diabetes Former nicotine dependence (quit 3 months ago, was smoking 1/2pp Recent diagnosis of DVT (he is unsure what leg) and was started on Eliquis Multiple myeloma follows with Dr. Méndez Obesity BMI 49 PLAN -Patient discussed with Dr. Méndez -Cardiac catheterization with Dr. Barajas today -I have discussed the risks, benefits and alternative therapies for the above- mentioned procedure and for both sedation/analgesia as well as necessary blood product administration, if indicated, as they pertain to this patient. The patient has indicated understanding and acceptance of the risks and procedures discussed. Questions have been answered appropriately and he is agreeable to move forward with the above-stated procedure. -Further recommendations based on clinical course Nurse Practitioner note has been reviewed, I agree with a documented findings and plan of care. Patient was seen and examined. Objective - Vital Signs Vital signs: Vital Signs Temp 97.8 F 02/06/21 12:38 Pulse 71 02/06/21 12:38 Resp 16 02/06/21 12:38 BP 116/73 02/06/21 12:38 Pulse Ox 98 02/06/21 07:57 Intake & Output 02/05/21 02/06/21 02/06/21 18:59 06:59 18:59 Intake Total 240 480 480 Output Total 800 Balance 240 -320 480 Weight 155.582 kg 155.6 kg 155.6 kg Intake: Oral 240 480 480 Output: Urine 800 Other: Voiding Method Urinal Urinal # Voids 2 # Bowel Movements 1 - Labs CBC & Chem 7: 02/06/21 09:41 02/06/21 09:41 Labs: Abnormal Lab Results - Last 24 Hours (Table) 02/05/21 02/05/21 02/06/21 Range/Units 16:41 20:14 06:07 WBC (3.8-10.6) k/uL RBC (4.30-5.90) m/uL Hgb (13.0-17.5) gm/dL Hct (39.0-53.0) % RDW (11.5-15.5) % Plt Count (150-450) k/uL Sodium (137-145) mmol/L BUN (9-20) mg/dL Glucose (74-99) mg/dL POC Glucose (mg/dL) 158 H 144 H 115 H (75-99) mg/dL 02/06/21 02/06/21 02/06/21 Range/Units 09:41 09:41 11:59 WBC 3.5 L (3.8-10.6) k/uL RBC 2.78 L (4.30-5.90) m/uL Hgb 8.0 L (13.0-17.5) gm/dL Hct 23.4 L (39.0-53.0) % RDW 17.5 H (11.5-15.5) % Plt Count 69 L D (150-450) k/uL Sodium 135 L (137-145) mmol/L BUN 27 H (9-20) mg/dL Glucose 190 H (74-99) mg/dL POC Glucose (mg/dL) 146 H (75-99) mg/dL
[2021-02-06] MEDS ORDERED: MIDAZOLAM 2 MG/2 ML VIAL IV ONE (15:19)
[2021-02-06] MEDS ORDERED: LIDOCAINE 1% INJ 10MG/ML (20 ML MDV) SQ ONE (15:21)
[2021-02-06] MEDS ORDERED: VERAPAMIL SYRINGE (5 MG/10 ML) INTRAARTER ONE (15:23)
[2021-02-06] MEDS ORDERED: IOPAMIDOL-370 125ML BTL INJ ONE (15:30)
[2021-02-06] MEDS ORDERED: RX INFO: IV CONTRAST WAS GIVEN 1 EACH MISC MISCELLANE PRN (15:38)
[2021-02-06] MEDS ORDERED: SODIUM CHLORIDE 0.9% 1,000 ML IV SCH (15:45)
[2021-02-06 17:07] LABS: Glucose,Whole Blood 133 mg/dL (75-99)
[2021-02-06 19:56] LABS: Glucose,Whole Blood 168 mg/dL (75-99)
--- NOTE | 2021-02-06 21:16 | CC ---
CARDIAC CATHETERIZATION REPORT DATE OF SERVICE: 02/06/2021 PERFORMING PHYSICIAN: Trenton Barajas MD. PROCEDURE PERFORMED: 1. Selective right and left coronary angiogram. 2. Left heart catheterization. INDICATION: This is a 55-year-old gentleman with hypertension and dyslipidemia who was admitted to the hospital with shortness of breath and ruled in for acute [id number] myocardial infarction. Because of that, a heart catheterization was advised. APPROACH: Right radial artery. COMPLICATION: None. LEVEL OF SEDATION: Moderate with sedation length of 15 minutes. PROCEDURE DESCRIPTION: After obtaining an informed consent, the patient was brought to the cardiac systems testing laboratory technician. The right radial artery was cannulated using micropuncture technique, the micropuncture wire passed easily. Then I placed a 6-[place] sheath at the right radial artery. Subsequently I gave the patient 2 mg of verapamil IA. Heparin was not given. Selective right and left coronary angiogram performed with JR4 and JL3.5 catheters. Left heart catheterization was performed using 5-Bangl[place]hi pigtail catheter. The procedure was completed without any complication. SELECTIVE CORONARY ANGIOGRAM: 1. The right coronary artery is a large caliber vessel. It is a dominant vessel. The RCA is angiographically normal. Distally bifurcates into PDA and PLV branches both appeared to be angiographically normal. 2. The left main is angiographically normal. It bifurcates into LCX and LAD. 3. The LCX is a large caliber vessel. It is a nondominant vessel. The LCX is angiographically normal. It gives rise into first and second obtuse marginal branches, both appeared to be angiographically normal. 4. The LAD in is a large caliber vessel. The LAD is angiographically normal. It gives rise into a large diagonal branch which seems to be angiographically normal. HEMODYNAMICS: The LVEDP was 20 mmHg without significant gradient across aortic valve. CONCLUSION: 1. Normal coronary angiogram. 2. Normal LVEDP. POSTPROCEDURE MANAGEMENT: 1. Medical treatment. 2. Continue diuretics. 3. Follow up with the patient. MMODL / IJN: [id number] /
[2021-02-07] MEDS: NITROGLYCERIN OINT 1 INCH/GM PACKET TOPICAL SCH ×4 (01:26→18:40)
[2021-02-07] MEDS ORDERED: ZOLPIDEM 10 MG TAB PO PRN (04:36)
[2021-02-07 06:02] LABS: Glucose,Whole Blood 115 mg/dL (75-99)
[2021-02-07] MEDS: INSULIN DETEMIR (LEVEMIR) 100 UNIT/ML SYR SQ SCH (06:12)
[2021-02-07] MEDS: PANTOPRAZOLE 40 MG TABLET PO SCH (06:13)
[2021-02-07 06:49] LABS: Anisocytosis Slight; HCT 23.6 % (39.0-53.0); Hypochromasia Slight; MCH 28.1 pg (25.0-35.0); MCHC 33.7 g/dL (31.0-37.0); MCV 83.4 fL (80.0-100.0); Mean Platelet Volume 9.3; Platelet Count 81 k/uL (150-450); Poikilocytosis Slight; RBC 2.83 m/uL (4.30-5.90); RDW 17.6 % (11.5-15.5); WBC 3.2 k/uL (3.8-10.6)
[2021-02-07] MEDS ORDERED: HEPARIN SODIUM,PORCINE 10,000 UNIT in SODIUM CHLORIDE 0.9% 1,000 ML IRRIGATION PRN (07:00)
[2021-02-07] MEDS ORDERED: HEPARIN SODIUM,PORCINE 2,500 UNIT in SODIUM CHLORIDE 0.9% 250 ML IRRIGATION PRN (07:00)
[2021-02-07] MEDS: PARoxetine 20 MG TAB PO SCH (08:29)
[2021-02-07] MEDS: ATORVASTATIN 80 MG TAB PO SCH (08:29)
[2021-02-07] MEDS: ASPIRIN 325 MG TAB PO SCH (08:29)
[2021-02-07] MEDS: HYDROcodone/APAP 10-325MG 1 EACH TAB PO SCH ×4 (08:29→21:14)
[2021-02-07] MEDS: lisinopriL 20 MG TAB PO SCH (08:29)
[2021-02-07] MEDS: ACYCLOVIR 200 MG CAP PO SCH ×2 (08:29→20:40)
[2021-02-07] MEDS: METOPROLOL SUCCINATE (ER) 25 MG TAB.ER.24H PO SCH (08:29)
--- NOTE | 2021-02-07 11:30 | XR ---
EXAMINATION TYPE: XR chest 1V DATE OF EXAM: 02/07/2021 HISTORY: Shortness of breath. COMPARISON: 02/04/2021 TECHNIQUE: Single view of the chest is submitted. FINDINGS: Demonstrated are scattered senescent parenchymal change. There is no evidence for focal infiltrate. The heart is stable. Hilar and mediastinal structures are within normal limits. Degenerative changes are seen of the dorsal spine. IMPRESSION: 1. Chronic changes without evidence for acute pulmonary disease.
[2021-02-07 11:53] LABS: Glucose,Whole Blood 112 mg/dL (75-99)
[2021-02-07] MEDS: SODIUM CHLORIDE 0.9% 1,000 ML IV SCH (12:14)
--- NOTE | 2021-02-07 12:36 | P.PN ---
Subjective Patient is 55-year-old male came in with coverage chest pain and shortness of breath which started about a week and half ago chest pain is a retrosternal burning sensation he felt like he has some acid reflux the chest pain is also reproducible exertional and does have shortness of breath with ambulation patient chest pain appears to be a exertional as well as nonradiating [id number] severity does have pleuritic competent as well not associated with food choices or diaphoresis took [place] which didn't help denied any palpitations is complaining of lightheadedness along with nausea was complaining of some orthopnea as well. Patient was recently diagnosed with DVT and was started on Eliquis by oncology. Patient quit smoking about 3-4 months ago patient does have history of multiple myeloma on lenalidomide. Patient denied any fever chills Covid 19 a PCR is negative. Patient is found to have elevated troponin CT of the chest did not show any pulmonary embolism patient DVT is not known whether it's in the right or left leg as per the patient cardiac he was consulted. Patient is thrombocytopenic because of which patient was not started on IV heparin patient is on Percocet being held as well until patient was evaluated by hematology. She is found have mildly elevated BNP as well EKG no significant ST-T wave changes chest x-ray did show sternotomy wires without any acute cardio pulmonary process. 02/05/2021 Patient was evaluated by cardiology, medical management is being continued no plan for any intervention at this time patient is not on IV heparin because of the thrombocytopenia. Discussed with the oncologist. Patient's myeloma treatment will be held which will help with platelet count. Patient apparently had a chronic DVT in the leg which was identified about a month ago, anti- correlation will be held because of thrombocytopenia patient's platelet count today improved to around 45,000. Patient doesn't have any chest pain today. 02/06/2021 Patient's platelets improved patient is still having some symptoms of a concurrent syndromes that is mostly shortness of breath although no chest pain at this time, cardiology will follow the patient and probably will undergo that a catheterization. Awaiting cardiology recommendations. Patient's platelet count is presently 69,000 02/07/2021 Patient had cardiac catheterization yesterday which actually any significant abnormality patient is still complaining of some shortness of breath and fatigue patient had a normal EF but the head elevated end-diastolic pressures during cardiac catheterization because of which are patient will be started on IV Lasix today low-dose. Patient's blood pressure is low. Lisinopril will be held. Constitutional: Denied any fatigue denied any fever. Cardio vascular: denied any chest pain, palpitations Gastrointestinal denied any nausea vomiting Pulmonary: Denied any shortness of breath cough Neurologic denied any new focal deficits All inpatient medications were reviewed and appropriate changes in these medications as dictated in the interval history and assessment and plan. Objective - Vital Signs Vital signs: Vital Signs Temp 98.9 F 02/07/21 08:15 Pulse 69 02/07/21 08:15 Resp 16 02/07/21 08:15 BP 99/60 02/07/21 08:15 Pulse Ox 98 02/07/21 08:15 Intake & Output 02/06/21 02/07/21 02/07/21 18:59 06:59 18:59 Intake Total 1060 540 180 Output Total 1500 Balance 1060 -960 180 Weight 155.6 kg 154.5 kg Intake: IV 100 Intake, IV Titration 300 Amount Sodium Chloride 0.9% 1, 300 000 ml @ 75 mls/hr IV . [id number] [facility] Rx#:[id number] Oral 960 240 180 Output: Urine 1500 Other: Voiding Method Urinal Urinal # Voids 2 1 # Bowel Movements 1 - Exam PHYSICAL EXAMINATION: GENERAL: The patient is alert and oriented x3, not in any acute distress. Well developed, well nourished. Obese HEENT: Pupils are round and equally reacting to light. EOMI. No scleral icterus. No conjunctival pallor. Normocephalic, atraumatic. No pharyngeal erythema. No thyromegaly. CARDIOVASCULAR: S1 and S2 present. No murmurs, rubs, or gallops. PULMONARY: Chest is clear to auscultation, no wheezing or crackles. ABDOMEN: Soft, nontender, nondistended, normoactive bowel sounds. No palpable organomegaly. MUSCULOSKELETAL: No joint swelling or deformity. EXTREMITIES: No cyanosis, clubbing, or pedal edema. Lower extremity is definitely larger than the left NEUROLOGICAL: Gross neurological examination did not reveal any focal deficits. SKIN: No rashes. - Labs CBC & Chem 7: 02/07/21 05:39 02/07/21 05:39 Labs: Abnormal Lab Results - Last 24 Hours (Table) 02/06/21 02/06/21 02/07/21 Range/Units 16:49 19:51 05:39 WBC 3.2 L (3.8-10.6) k/uL RBC 2.83 L (4.30-5.90) m/uL Hgb 8.0 L (13.0-17.5) gm/dL Hct 23.6 L (39.0-53.0) % RDW 17.6 H (11.5-15.5) % Plt Count 81 L (150-450) k/uL Sodium (137-145) mmol/L BUN (9-20) mg/dL Glucose (74-99) mg/dL POC Glucose (mg/dL) 133 H 168 H (75-99) mg/dL 02/07/21 02/07/21 02/07/21 Range/Units 05:39 05:59 11:51 WBC (3.8-10.6) k/uL RBC (4.30-5.90) m/uL Hgb (13.0-17.5) gm/dL Hct (39.0-53.0) % RDW (11.5-15.5) % Plt Count (150-450) k/uL Sodium 136 L (137-145) mmol/L BUN 24 H (9-20) mg/dL Glucose 105 H (74-99) mg/dL POC Glucose (mg/dL) 115 H 112 H (75-99) mg/dL Assessment and Plan Plan: Elevated troponins most probably secondary to congestive heart failure chronic diastolic dysfunction shortness of breath bradycardia probably secondary to congestive heart failure chronic diastolic dysfunction patient is administered and diastolic pressures daily catheterization patient had a normal ejection fraction patient will be started on Lasix possibly of discharge tomorrow if he feels okay patient is saturating well on room air at this time. Cardiac catheterization did not show any significant coronary artery disease that will need intervention. -Chronic DVT: Eliquis is on hold because of thrombocytopenia on admission. Oncology evaluated the patient, multiple myeloma treatment, lenalidomide is being held secondary to thrombocytopenia. Probably can be resumed on Eliquis and probably can be discontinued aspirin which was started today -Type 2 diabetes mellitus -History of multiple myeloma on lenalidomide -Obesity -Type 2 diabetes mellitus -Hyponatremia AV hypervolemic hyponatremia may benefit from gentle hydration -Severe thrombocytopenia probably secondary to multiple myeloma and chemotherapy -
[2021-02-07] MEDS: ONDANSETRON ODT 4 MG TAB PO PRN (13:39)
[2021-02-07] MEDS: FUROSEMIDE 10 MG/ML 2 ML VIAL IV SCH (13:39)
--- NOTE | 2021-02-07 14:01 | P.PN ---
Subjective This is a pleasant 55-year-old male past medical history significant for hypertension, type 2 diabetes, former nicotine dependence (quit 3 months ago, was smoking 1/2pp), recent diagnosis of DVT (he is unsure what leg) and was started on Eliquis, multiple myeloma follows with Dr. Méndez (recent chemotherapy treatment on thrusday). He does not follow with a cardiolgoist. We have been asked to see in consultation for elevated troponin. Patient is seen and examined in the emergency department. Patient states he started having shortness of breath a week and half ago and progressively has gotten worse. He usually can walk 1-3 blocks and now cannot walk 2-3 feet without feeling short of breath. He also endorses lower extremity edema. He also endorses some chest pain. It is located on the left side of his chest, it is sometimes exertional. It is non- radiating. It worsens when he takes a deep breath or coughs. Associated with diaphoresis. He has taken [place] at home for the pain and it does not help. He denies palpitations. He states he sometimes does get lightheaded and feels that he may pass out. He does feel short of breath when lying flat. He states that since he has started Eliquis for his DVT he has had worsening shortness of breath. He also endorses having some abdominal pain and nausea in the morning. Laboratory data reviewed, troponin 2.4, BNP 2030, sodium 133, potassium 3.8, serum creatinine 1.1, magnesium 1.9, WBC 3.8, hemoglobin 8.6, platelets 36 Vital signs blood pressure 110/67, heart rate 86, afebrile, maintaining oxygen saturation on room air. Current home cardiac medications include amlodipine 10 mg daily, Eliquis 5mg BID, last taken 02/04/21 morning. DIAGNOSTICS EKG reveals sinus rhythm heart rate 79, no significant ST elevation or ST-T wave abnormalities seen. No significant changes from prior Telemetry tracings at bedside- appear sinus mechanism with HR 70s Chest xray median sternotomy wires are present, heart limits of normal size, mild interstitial prominence is unchanged. CT chest negative for pulmonary embolism Echocardiogram continuous function is normal with an EF between 5055 percent, RV is mildly enlarged, mild to moderate MR, mild TR, mild pulmonary hypertension 4/7/21: Patient seen and examined at bedside, no acute distress. Patient with worsening exertional shortness of breath. He continues to need Oxygen when walking or doing activities. Even doing simple activity he states he feels fatigued and short of breath. Patient denies chest pain, palpitations or weakness. Does feel fatgiued. Vitals signs blood pressure 117/60, heart rate 72, afebrile, maintaining saturations on room air. Patient currently maintained on aspirin 325 mg daily, atorvastatin 80 mg daily, lisinopril 20 mg daily, which most worsening 25 mg daily. Laboratory data reviewed, WBC 3.5, hemoglobin 8.0, platelets 69, sodium 135, potassium 3.9, serum creatinine 1.19, BUN 27 02/07/2021: Patient s/p cardiac catheterization with Dr. Barajas yesterday which revealed LVEDP 20mmHg. Patient sitting up on side of bed. Continues to have exertional shortness of breath, worried about going home. Vital signs stable. Blood pressure 99/60, heart rate 69, maintaining oxygen saturation is on room air, afebrile. PHYSICAL EXAMINATION CONSTITUTIONAL: No apparent distress. HEENT: Head is normocephalic. Pupils are equal, round. Sclerae anicteric. Mucous membranes of the mouth are moist. No JVD. No carotid bruit. CHEST EXAMINATION: Lungs are clear to auscultation. No chest wall tenderness is noted on palpation or with deep breathing. HEART EXAMINATION: Regular rate and rhythm. S1, S2 heard. No murmurs, gallops or rub. ABDOMEN: Soft, nontender. Positive bowel sounds. EXTREMITIES: 2+ peripheral pulses, mild bilateral lower extremity edema and no calf tenderness. SKIN: intact NEUROLOGIC EXAMINATION: Patient is awake, alert and oriented x3. ASSESSMENT Shortness of breath- likely multifactorial with elevated LV filling pressures, anemia, and multiple myeloma Thrombocytopenia History of hypertension Type 2 diabetes Former nicotine dependence (quit 3 months ago, was smoking 1/2pp Recent diagnosis of DVT (he is unsure what leg) and was started on Eliquis Multiple myeloma follows with Dr. Méndez Obesity BMI 49 PLAN Recommend diuresis - Start furosemide 20mg IV daily Decrease his meoprolol succinate to 12.5mg daily Can discontinue aspirin with patient going back on Eliquis Further recommendations based on clinical course Nurse Practitioner note has been reviewed, I agree with a documented findings and plan of care. Patient was seen and examined. Objective - Vital Signs Vital signs: Vital Signs Temp 98.2 F 02/07/21 03:23 Pulse 66 02/07/21 03:23 Resp 16 02/07/21 03:23 BP 110/56 02/07/21 03:23 Pulse Ox 95 02/07/21 03:23 Intake & Output 02/06/21 02/07/21 02/07/21 18:59 06:59 18:59 Intake Total 1060 540 Output Total 1500 Balance 1060 -960 Weight 155.6 kg 154.5 kg Intake: IV 100 Intake, IV Titration 300 Amount Sodium Chloride 0.9% 1, 300 000 ml @ 75 mls/hr IV . [id number] [id number] Rx#:[id number] Oral 960 240 Output: Urine 1500 Other: Voiding Method Urinal Urinal # Voids 2 # Bowel Movements 1 - Labs CBC & Chem 7: 02/07/21 05:39 02/07/21 05:39 Labs: Abnormal Lab Results - Last 24 Hours (Table) 02/06/21 02/06/21 02/06/21 Range/Units 09:41 09:41 11:59 WBC 3.5 L (3.8-10.6) k/uL RBC 2.78 L (4.30-5.90) m/uL Hgb 8.0 L (13.0-17.5) gm/dL Hct 23.4 L (39.0-53.0) % RDW 17.5 H (11.5-15.5) % Plt Count 69 L D (150-450) k/uL Sodium 135 L (137-145) mmol/L BUN 27 H (9-20) mg/dL Glucose 190 H (74-99) mg/dL POC Glucose (mg/dL) 146 H (75-99) mg/dL 02/06/21 02/06/21 02/07/21 Range/Units 16:49 19:51 05:39 WBC 3.2 L (3.8-10.6) k/uL RBC 2.83 L (4.30-5.90) m/uL Hgb 8.0 L (13.0-17.5) gm/dL Hct 23.6 L (39.0-53.0) % RDW 17.6 H (11.5-15.5) % Plt Count 81 L (150-450) k/uL Sodium (137-145) mmol/L BUN (9-20) mg/dL Glucose (74-99) mg/dL POC Glucose (mg/dL) 133 H 168 H (75-99) mg/dL 02/07/21 02/07/21 Range/Units 05:39 05:59 WBC (3.8-10.6) k/uL RBC (4.30-5.90) m/uL Hgb (13.0-17.5) gm/dL Hct (39.0-53.0) % RDW (11.5-15.5) % Plt Count (150-450) k/uL Sodium 136 L (137-145) mmol/L BUN 24 H (9-20) mg/dL Glucose 105 H (74-99) mg/dL POC Glucose (mg/dL) 115 H (75-99) mg/dL
--- NOTE | 2021-02-07 14:44 | P.PN ---
Subjective Progress Note Date: 02/07/21 Principal diagnosis: Chest pain, shortness of breath. In treatment for multiple myeloma In follow-up today patient is having a little bit of gastrointestinal distress (nausea, diarrhea) secondary to his lunch. He states he typically doesn't eat meals as regularly as he eats them here. He had his cardiac catheterization without any complications. He is not having chest pain, he still is short of breath with minimal exertion. His hemoglobin is stable, his platelets are up to 81,000. No reports of bleeding. Right breast cath site has a Band-Aid, no drainage or bruising. Patient denies any pain right now. Objective - Vital Signs Vital signs: Vital Signs Temp 98.9 F 02/07/21 08:15 Pulse 69 02/07/21 08:15 Resp 16 02/07/21 08:15 BP 99/60 02/07/21 08:15 Pulse Ox 98 02/07/21 08:15 Intake & Output 02/06/21 02/07/21 02/07/21 18:59 06:59 18:59 Intake Total 1060 540 660 Output Total 1500 Balance 1060 -960 660 Weight 155.6 kg 154.5 kg Intake: IV 100 Intake, IV Titration 300 Amount Sodium Chloride 0.9% 1, 300 000 ml @ 75 mls/hr IV . [id number] [facility] Rx#:[id number] Oral 960 240 660 Output: Urine 1500 Other: Voiding Method Urinal Urinal # Voids 2 2 # Bowel Movements 1 0 - Constitutional General appearance: Present: cooperative, morbidly obese, no acute distress - EENT Eyes: Present: anicteric sclerae, EOMI ENT: Present: hearing grossly normal, normal oropharynx - Respiratory Respiratory: bilateral: CTA - Cardiovascular Rhythm: regular Heart sounds: normal: S1, S2 Abnormal Heart Sounds: Absent: systolic murmur, diastolic murmur, rub, S3 Ga llop, S4 Gallop, click, other - Peripheral edema leg Peripheral Edema: bilateral: Trace - Gastrointestinal General gastrointestinal: Present: hyperactive bowel sounds, soft, tenderness (Mild, epigastric area). Absent: absent bowel sounds, decreased bowel sounds, distended, hepatomegaly, normal bowel sounds, organomegaly, rigid, scaphoid, splenomegaly, umbilical hernia, ventral hernia - Neurologic Neurologic: Present: CNII-XII intact - Musculoskeletal Musculoskeletal: Present: strength equal bilaterally - Psychiatric Psychiatric: Present: A&O x's 3, appropriate affect, intact judgment & insight - Labs CBC & Chem 7: 02/07/21 05:39 02/07/21 05:39 Labs: Abnormal Lab Results - Last 24 Hours (Table) 02/06/21 02/06/21 02/07/21 Range/Units 16:49 19:51 05:39 WBC 3.2 L (3.8-10.6) k/uL RBC 2.83 L (4.30-5.90) m/uL Hgb 8.0 L (13.0-17.5) gm/dL Hct 23.6 L (39.0-53.0) % RDW 17.6 H (11.5-15.5) % Plt Count 81 L (150-450) k/uL Sodium (137-145) mmol/L BUN (9-20) mg/dL Glucose (74-99) mg/dL POC Glucose (mg/dL) 133 H 168 H (75-99) mg/dL 02/07/21 02/07/21 02/07/21 Range/Units 05:39 05:59 11:51 WBC (3.8-10.6) k/uL RBC (4.30-5.90) m/uL Hgb (13.0-17.5) gm/dL Hct (39.0-53.0) % RDW (11.5-15.5) % Plt Count (150-450) k/uL Sodium 136 L (137-145) mmol/L BUN 24 H (9-20) mg/dL Glucose 105 H (74-99) mg/dL POC Glucose (mg/dL) 115 H 112 H (75-99) mg/dL - Imaging and Cardiology Chest x-ray: report reviewed Assessment and Plan (1) Non-STEMI (non-ST elevated myocardial infarction) Narrative/Plan: Case discussed with Cardiology. [place] the patient's complaints were related to c ardiopulmonary strain secondary to anemia. Patient had no evidence of cardiovascular disease in need of intervention such as stenting when reviewing catheterization note. Medical management planned at this time Reviewed case with Internal Medicine. Stopping the aspirin. Current Visit: Yes Status: Acute Priority: High Code(s): I21.4 - NON-ST ELEVATION (NSTEMI) MYOCARDIAL INFARCTION SNOMED Code(s): 45279198 (2) Multiple myeloma Narrative/Plan: Pt myeloma numbers are much improved since starting treatment. Patient's cardiac conditions to be medically managed. But also, patient is going to need improved hemoglobin before his symptoms. Treatment may either be dose changed or even some changes in medications to see if we can decrease the hematologic toxicities. Current Visit: No Status: Chronic Priority: Medium Code(s): C90.00 - MULTIPLE MYELOMA NOT HAVING ACHIEVED REMISSION SNOMED Code(s): 528247089 (3) DVT (deep venous thrombosis) Narrative/Plan: Resume eliquis 5 mg twice a day Current Visit: No Status: Chronic Priority: Medium Code(s): I82.409 - ACUTE EMBOLISM AND THOMBOS UNSP DEEP VN UNSP LOWER EXTREMITY SNOMED Code(s): 893921787 Plan: Doctor attests: I performed a history and physical examination of this patient, developed impression and plan of care. Discussed with dictator. I agree with dictators note, documented as a scribe.
[2021-02-07 14:55] VITALS: RESP 18
[2021-02-07 16:37] LABS: Glucose,Whole Blood 121 mg/dL (75-99)
[2021-02-07 20:21] LABS: Glucose,Whole Blood 138 mg/dL (75-99)
[2021-02-07] MEDS: APIXABAN 5 MG TAB PO SCH (20:40)
[2021-02-07] MEDS: ALPRAZolam 0.5 MG TAB PO PRN (22:38)
[2021-02-08] MEDS: NITROGLYCERIN OINT 1 INCH/GM PACKET TOPICAL SCH ×4 (03:03→17:03)
[2021-02-08 06:07] LABS: Glucose,Whole Blood 143 mg/dL (75-99)
[2021-02-08] MEDS: INSULIN DETEMIR (LEVEMIR) 100 UNIT/ML SYR SQ SCH ×2 (07:02→07:52)
[2021-02-08] MEDS: PANTOPRAZOLE 40 MG TABLET PO SCH (07:02)
[2021-02-08] MEDS: SODIUM CHLORIDE 0.9% 1,000 ML IV SCH (07:52)
[2021-02-08] MEDS: HYDROcodone/APAP 10-325MG 1 EACH TAB PO SCH ×3 (08:07→17:09)
[2021-02-08] MEDS: ACYCLOVIR 200 MG CAP PO SCH (08:07)
[2021-02-08] MEDS: SULFAMETHOX-TMP 800-160MG 1 EACH TAB PO SCH (08:07)
[2021-02-08] MEDS: PARoxetine 20 MG TAB PO SCH (08:08)
[2021-02-08] MEDS: FUROSEMIDE 10 MG/ML 2 ML VIAL IV SCH (08:08)
[2021-02-08] MEDS: APIXABAN 5 MG TAB PO SCH (08:09)
[2021-02-08] MEDS ORDERED: ATORVASTATIN 40 MG TAB PO SCH (09:00)
[2021-02-08] MEDS ORDERED: ASPIRIN 81 MG PO SCH (09:00)
[2021-02-08] MEDS ORDERED: METOPROLOL SUCCINATE (ER) 25 MG TAB.ER.24H PO SCH (09:00)
[2021-02-08 09:06] LABS: ALT 32 U/L (4-49); AST 33 U/L (17-59); African American GFR (CKD) >90 (>60 ml/min/1.73 sqM); Albumin 3.8 g/dL (3.5-5.0); Alkaline Phosphatase 78 U/L (38-126); Anion Gap 9 mmol/L; Blood Urea Nitrogen 20 mg/dL (9-20); Calcium 9.4 mg/dL (8.4-10.2); Carbon Dioxide 24 mmol/L (22-30); Chloride 101 mmol/L (98-107); Glucose 156 mg/dL (74-99); Non-African American GFR(CKD) 78 (>60 ml/min/1.73 sqM); Sodium 134 mmol/L (137-145); Total Bilirubin 0.4 mg/dL (0.2-1.3); Total Protein 5.9 g/dL (6.3-8.2)
[2021-02-08 09:08] LABS: Anisocytosis Slight; Basophils % (A) 0 %; Eosinophils # (A) 0.1 k/uL (0-0.7); Eosinophils % (A) 2 %; HCT 27.8 % (39.0-53.0); HGB 8.8 gm/dL (13.0-17.5); Hypochromasia Moderate; Lymphocytes # (A) 0.5 k/uL (1.0-4.8); Lymphocytes % (A) 12 %; MCH 26.1 pg (25.0-35.0); MCHC 31.5 g/dL (31.0-37.0); MCV 82.7 fL (80.0-100.0); Mean Platelet Volume 8.7; Monocytes # (A) 0.4 k/uL (0-1.0); Monocytes % (A) 10 %; Neutrophils # (A) 2.9 k/uL (1.3-7.7); Neutrophils % (A) 73 %; Poikilocytosis Moderate; RBC 3.36 m/uL (4.30-5.90); RDW 17.8 % (11.5-15.5)
[2021-02-08 09:18] LABS: Platelet Count 154 k/uL (150-450)
[2021-02-08 11:47] LABS: Glucose,Whole Blood 134 mg/dL (75-99)
[2021-02-08 12:31] VITALS: PULSE 74
--- NOTE | 2021-02-08 13:13 | P.PN ---
Subjective This is a pleasant 55-year-old male past medical history significant for hypertension, type 2 diabetes, former nicotine dependence (quit 3 months ago, was smoking 1/2pp), recent diagnosis of DVT (he is unsure what leg) and was started on Eliquis, multiple myeloma follows with Dr. Méndez (recent chemotherapy treatment on thrusday). He does not follow with a cardiolgoist. We have been asked to see in consultation for elevated troponin. Patient is seen and examined in the emergency department. Patient states he started having shortness of breath a week and half ago and progressively has gotten worse. He usually can walk 1-3 blocks and now cannot walk 2-3 feet without feeling short of breath. He also endorses lower extremity edema. He also endorses some chest pain. It is located on the left side of his chest, it is sometimes exertional. It is non- radiating. It worsens when he takes a deep breath or coughs. Associated with diaphoresis. He has taken [place] at home for the pain and it does not help. He denies palpitations. He states he sometimes does get lightheaded and feels that he may pass out. He does feel short of breath when lying flat. He states that since he has started Eliquis for his DVT he has had worsening shortness of breath. He also endorses having some abdominal pain and nausea in the morning. Laboratory data reviewed, troponin 2.4, BNP 2030, sodium 133, potassium 3.8, serum creatinine 1.1, magnesium 1.9, WBC 3.8, hemoglobin 8.6, platelets 36 Vital signs blood pressure 110/67, heart rate 86, afebrile, maintaining oxygen saturation on room air. Current home cardiac medications include amlodipine 10 mg daily, Eliquis 5mg BID, last taken 02/04/21 morning. DIAGNOSTICS EKG reveals sinus rhythm heart rate 79, no significant ST elevation or ST-T wave abnormalities seen. No significant changes from prior Telemetry tracings at bedside- appear sinus mechanism with HR 70s Chest xray median sternotomy wires are present, heart limits of normal size, mild interstitial prominence is unchanged. CT chest negative for pulmonary embolism Echocardiogram continuous function is normal with an EF between 5055 percent, RV is mildly enlarged, mild to moderate MR, mild TR, mild pulmonary hypertension 4/7/21: Patient seen and examined at bedside, no acute distress. Patient with worsening exertional shortness of breath. He continues to need Oxygen when walking or doing activities. Even doing simple activity he states he feels fatigued and short of breath. Patient denies chest pain, palpitations or weakness. Does feel fatgiued. Vitals signs blood pressure 117/60, heart rate 72, afebrile, maintaining saturations on room air. Patient currently maintained on aspirin 325 mg daily, atorvastatin 80 mg daily, lisinopril 20 mg daily, which most worsening 25 mg daily. Laboratory data reviewed, WBC 3.5, hemoglobin 8.0, platelets 69, sodium 135, potassium 3.9, serum creatinine 1.19, BUN 27 02/07/2021: Patient s/p cardiac catheterization with Dr. Barajas yesterday which revealed LVEDP 20mmHg. Patient sitting up on side of bed. Continues to have exertional shortness of breath, worried about going home. Vital signs stable. Blood pressure 99/60, heart rate 69, maintaining oxygen saturation is on room air, afebrile. 02/08/2021: Patient seend and examined at bedside. Seen sitting up in the chair no acute distress. Patient very comfortable. Patient started on IV Lasix 20mg daily yesterday. Patient endorses continued shortness of breath, worried about going home. Patient with many social stressors at home stating he is getting kicked out of his house and worried about his health BP 128/65 HR 76, maintaining oxygen saturations 97% on room air, afebrile. Patient currently being maintained on amlodipine 10 mg daily, PHYSICAL EXAMINATION CONSTITUTIONAL: No apparent distress. HEENT: Head is normocephalic. Pupils are equal, round. Sclerae anicteric. Mucous membranes of the mouth are moist. No JVD. No carotid bruit. CHEST EXAMINATION: Lungs are clear to auscultation. No chest wall tenderness is noted on palpation or with deep breathing. HEART EXAMINATION: Regular rate and rhythm. S1, S2 heard. No murmurs, gallops or rub. ABDOMEN: Soft, nontender. Positive bowel sounds. EXTREMITIES: 2+ peripheral pulses, mild bilateral lower extremity edema and no calf tenderness. Right radial site: clean, dry, bandaid intact 2+radial pulses, 2+ dorsal pedis pulses. SKIN: intact NEUROLOGIC EXAMINATION: Patient is awake, alert and oriented x3. ASSESSMENT Shortness of breath- likely multifactorial with elevated LV filling pressures, anemia, and multiple myeloma Thrombocytopenia History of hypertension Type 2 diabetes Former nicotine dependence (quit 3 months ago, was smoking 1/2pp Recent diagnosis of DVT (he is unsure what leg) and was started on Eliquis Multiple myeloma follows with Dr. Méndez Obesity BMI 49 PLAN Continue metoprolol succinate to 12.5mg daily Patient stable for discharge from cardiology perspective No need to continue aspirin if patient being continued on Eliquis Patient can follow up in the outpatient office with Dr. Barajas Nurse Practitioner note has been reviewed, I agree with a documented findings and plan of care. Patient was seen and examined. Objective - Vital Signs Vital signs: Vital Signs Temp 97.0 F L 02/07/21 15:55 Pulse 64 02/07/21 17:02 Resp 18 02/07/21 15:55 BP 128/64 02/07/21 15:55 Pulse Ox 99 02/07/21 15:55 Intake & Output 02/07/21 02/07/21 02/08/21 06:59 18:59 06:59 Intake Total 540 1200 Output Total 1500 Balance -960 1200 Weight 154.5 kg Intake: Intake, IV Titration 300 Amount Sodium Chloride 0.9% 1, 300 000 ml @ 75 mls/hr IV . [id number] [facility] Rx#:[id number] Oral 240 1200 Output: Urine 1500 Other: Voiding Method Urinal # Voids 2 # Bowel Movements 3 - Labs CBC & Chem 7: 02/08/21 08:31 02/08/21 08:31 Labs: Abnormal Lab Results - Last 24 Hours (Table) 02/06/21 02/07/21 02/07/21 Range/Units 19:51 05:39 05:39 WBC 3.2 L (3.8-10.6) k/uL RBC 2.83 L (4.30-5.90) m/uL Hgb 8.0 L (13.0-17.5) gm/dL Hct 23.6 L (39.0-53.0) % RDW 17.6 H (11.5-15.5) % Plt Count 81 L (150-450) k/uL Sodium 136 L (137-145) mmol/L BUN 24 H (9-20) mg/dL Glucose 105 H (74-99) mg/dL POC Glucose (mg/dL) 168 H (75-99) mg/dL 02/07/21 02/07/21 02/07/21 Range/Units 05:59 11:51 16:35 WBC (3.8-10.6) k/uL RBC (4.30-5.90) m/uL Hgb (13.0-17.5) gm/dL Hct (39.0-53.0) % RDW (11.5-15.5) % Plt Count (150-450) k/uL Sodium (137-145) mmol/L BUN (9-20) mg/dL Glucose (74-99) mg/dL POC Glucose (mg/dL) 115 H 112 H 121 H (75-99) mg/dL
[2021-02-08 15:57] VITALS: BP 123/74; TEMP 98.6
--- NOTE | 2021-02-08 16:00 | P.DS ---
Providers Date of admission: 02/04/21 15:59 Attending physician: Akosua Maloney Consults: 02/04/21 15:59 Consult Physician Urgent Consulting Provider: [facility] Consult Reason/Comments: Non-STEMI Do you want consulting provider notified?: Already Contacted 02/04/21 16:43 Consult Physician Routine Consulting Provider: Yifan Méndez Consult Reason/Comments: thrombocytopenia Do you want consulting provider notified?: Yes Primary care physician: Yifan Méndez Hospital Course: Patient is 55-year-old male came in with coverage chest pain and shortness of breath which started about a week and half ago chest pain is a retrosternal burning sensation he felt like he has some acid reflux the chest pain is also reproducible exertional and does have shortness of breath with ambulation patient chest pain appears to be a exertional as well as nonradiating [id number] severity does have pleuritic competent as well not associated with food choices or diaphoresis took [place] which didn't help denied any palpitations is complaining of lightheadedness along with nausea was complaining of some orthopnea as well. Patient was recently diagnosed with DVT and was started on Eliquis by oncology. Patient quit smoking about 3-4 months ago patient does have history of multiple myeloma on lenalidomide. Patient denied any fever chills Covid 19 a PCR is negative. Patient is found to have elevated troponin CT of the chest did not show any pulmonary embolism patient DVT is not known whether it's in the right or left leg as per the patient cardiac he was consulted. Patient is thrombocytopenic because of which patient was not started on IV heparin patient is on Percocet being held as well until patient was evaluated by hematology. She is found have mildly elevated BNP as well EKG no significant ST-T wave changes chest x-ray did show sternotomy wires without any acute cardio pulmonary process. 02/05/2021 Patient was evaluated by cardiology, medical management is being continued no pl an for any intervention at this time patient is not on IV heparin because of the thrombocytopenia. Discussed with the oncologist. Patient's myeloma treatment will be held which will help with platelet count. Patient apparently had a chronic DVT in the leg which was identified about a month ago, anti-correlation will be held because of thrombocytopenia patient's platelet count today improved to around 45,000. Patient doesn't have any chest pain today. 02/06/2021 Patient's platelets improved patient is still having some symptoms of a concurrent syndromes that is mostly shortness of breath although no chest pain at this time, cardiology will follow the patient and probably will undergo that a catheterization. Awaiting cardiology recommendations. Patient's platelet count is presently 69,000 02/07/2021 Patient had cardiac catheterization yesterday which actually any significant abnormality patient is still complaining of some shortness of breath and fatigue patient had a normal EF but the head elevated end-diastolic pressures during cardiac catheterization because of which are patient will be started on IV Lasix today low-dose. Patient's blood pressure is low. Lisinopril will be held. 02/08/2021 Patient is clinically doing well at this time patient will be discharged today. A basic Metabolic profile will be repeated in couple days as patient is bit hyponatremic patient is being discharged on 40 mg of Lasix. Patient probably will not need any potassium supplementation at this time. Patient will follow- up closely with oncology. Patient is not short of breath lying comfortably flat on bed. PHYSICAL EXAMINATION: GENERAL: The patient is alert and oriented x3, not in any acute distress. Well developed, well nourished. Obese HEENT: Pupils are round and equally reacting to light. EOMI. No scleral icterus. No conjunctival pallor. Normocephalic, atraumatic. No pharyngeal erythema. No thyromegaly. CARDIOVASCULAR: S1 and S2 present. No murmurs, rubs, or gallops. PULMONARY: Chest is clear to auscultation, no wheezing or crackles. ABDOMEN: Soft, nontender, nondistended, normoactive bowel sounds. No palpable organomegaly. MUSCULOSKELETAL: No joint swelling or deformity. EXTREMITIES: No cyanosis, clubbing, or pedal edema. Lower extremity is definitely larger than the left NEUROLOGICAL: Gross neurological examination did not reveal any focal deficits. SKIN: No rashes. Assessment and Plan Plan: Elevated troponins most probably secondary to congestive heart failure chronic diastolic dysfunction shortness of breath bradycardia probably secondary to congestive heart failure chronic diastolic dysfunction patient is administered and diastolic pressures daily catheterization patient had a normal ejection fraction patient is being discharged today. Cardiac catheterization did not show any significant coronary artery disease that will need intervention. -Chronic DVT: Eliquis was resumed patient's platelet count improved to 154 believed to be secondary to lenalidomide. Oncology evaluated the patient, multiple myeloma treatment, lenalidomide is being held secondary to thrombocytopenia. -Type 2 diabetes mellitus -History of multiple myeloma on lenalidomide -Obesity -Type 2 diabetes mellitus -Hyponatremia AV hypervolemic hyponatremia may benefit from gentle hydration -Severe thrombocytopenia probably secondary to multiple myeloma and chemotherapy, thrombocytopenia improved - Plan - Discharge Summary Discharge Rx Participant: No New Discharge Prescriptions: New Furosemide [Lasix] 40 mg PO DAILY #30 tablet Continue PARoxetine HCL [Paxil] 40 mg PO DAILY HYDROcodone/APAP 10-325MG [[place] 10-325] 1 tab PO QID Zolpidem [Ambien] 10 mg PO HS Sulfamethox-Tmp 800-160Mg [Bactrim DS 800-160 mg] 1 tab PO MOWEFR Ondansetron [Zofran ODT] 4 mg PO Q6H PRN PRN Reason: Nausea And Vomiting Insulin Detemir (Levemir) [Levemir] 24 unit SQ DAILY@0700 #3 vial Acyclovir 1 tab PO BID Omeprazole 40 mg PO DAILY Apixaban [Eliquis] 5 mg PO BID Dexamethasone [Decadron] 20 mg PO MO INSULIN ASPART (NovoLOG) [NovoLOG (formulary)] See Protocol SQ ACHS ALPRAZolam [Xanax] 0.5 mg PO DAILY PRN PRN Reason: Anxiety Discontinued amLODIPine [Norvasc] 10 mg PO DAILY ramipriL [Altace] 5 mg PO DAILY Ibuprofen [Motrin] 800 mg PO QID Lenalidomide [Revlimid] 25 mg PO DIRECTED Aspirin EC [Ecotrin Low Dose] 81 mg PO DAILY Discharge Medication List PARoxetine HCL [Paxil] 40 mg PO DAILY 04/29/14 [History] HYDROcodone/APAP 10-325MG [[place] 10-325] 1 tab PO QID 08/24/16 [History] Zolpidem [Ambien] 10 mg PO HS 04/02/17 [History] Ondansetron [Zofran ODT] 4 mg PO Q6H PRN 11/13/20 [History] Sulfamethox-Tmp 800-160Mg [Bactrim DS 800-160 mg] 1 tab PO MOWEFR 11/13/20 [History] Insulin Detemir (Levemir) [Levemir] 24 unit SQ DAILY@0700 #3 vial 11/15/20 [Rx] Acyclovir 1 tab PO BID 01/03/21 [History] ALPRAZolam [Xanax] 0.5 mg PO DAILY PRN 02/04/21 [History] Apixaban [Eliquis] 5 mg PO BID 02/04/21 [History] Dexamethasone [Decadron] 20 mg PO MO 02/04/21 [History] INSULIN ASPART (NovoLOG) [NovoLOG (formulary)] See Protocol SQ ACHS 02/04/21 [History] Omeprazole 40 mg PO DAILY 02/04/21 [History] Furosemide [Lasix] 40 mg PO DAILY #30 tablet 02/08/21 [Rx] Follow up Appointment(s)/Referral(s): Yifan Méndez MD [Primary Care Provider] - 1 Week (ofc will call pt with appt) Trenton Barajas MD [STAFF PHYSICIAN] - 2 Weeks [facility], [NON-STAFF] - 1 Week Ambulatory/Diagnostic Orders: Basic Metabolic Panel [LAB.AMB] Time Frame: 3 Days, Location: None Selected Activity/Diet/Wound Care/Special Instructions: Pt will continue bactrim Thu, Wed, Thu and acyclovir twice a day. Cont dexamethasone steroid on Mondays. Hold Revlimid until speaking to Dr. Méndez's ofc about resuming treatment. Discharge Disposition: HOME WITH HOME HEALTH SERVICES
[2021-02-08 17:00] LABS: Glucose,Whole Blood 112 mg/dL (75-99)
[2021-02-08] MEDS: ONDANSETRON ODT 4 MG TAB PO PRN (17:51)
--- NOTE | 2021-02-08 20:13 | P.PN ---
Subjective Progress Note Date: 02/08/21 PLatelets increased Objective - Vital Signs Vital signs: Vital Signs Temp 98.6 F 02/08/21 15:55 Pulse 74 02/08/21 15:55 Resp 18 02/08/21 15:55 BP 123/74 02/08/21 15:55 Pulse Ox 99 02/08/21 15:55 Intake & Output 02/08/21 02/08/21 02/09/21 06:59 18:59 06:59 Intake Total 1200 Output Total 1100 Balance -1100 1200 Weight 152.3 kg Intake: Oral 1200 Output: Urine 1100 Other: Voiding Method Urinal # Voids 1 # Bowel Movements 0 - Exam - Constitutional General appearance: Present: cooperative, morbidly obese, no acute distress - EENT Eyes: Present: anicteric sclerae, EOMI ENT: Present: hearing grossly normal, normal oropharynx - Respiratory Respiratory: bilateral: CTA - Cardiovascular Rhythm: regular Heart sounds: normal: S1, S2 Abnormal Heart Sounds: Absent: systolic murmur, diastolic murmur, rub, S3 Gallop, S4 Gallop, click, other - Peripheral edema leg Peripheral Edema: bilateral: Trace - Gastrointestinal General gastrointestinal: Present: hyperactive bowel sounds, soft, tenderness (Mild, epigastric area). Absent: absent bowel sounds, decreased bowel sounds, distended, hepatomegaly, normal bowel sounds, organomegaly, rigid, scaphoid, splenomegaly, umbilical hernia, ventral hernia - Neurologic Neurologic: Present: CNII-XII intact - Musculoskeletal Musculoskeletal: Present: strength equal bilaterally - Psychiatric Psychiatric: Present: A&O x's 3, appropriate affect, intact judgment & insight - Labs CBC & Chem 7: 02/08/21 08:31 02/08/21 08:31 Labs: Abnormal Lab Results - Last 24 Hours (Table) 02/07/21 02/08/21 02/08/21 Range/Units 20:13 06:05 08:31 RBC 3.36 L (4.30-5.90) m/uL Hgb 8.8 L (13.0-17.5) gm/dL Hct 27.8 L (39.0-53.0) % RDW 17.8 H (11.5-15.5) % Lymphocytes # 0.5 L (1.0-4.8) k/uL Sodium (137-145) mmol/L Glucose (74-99) mg/dL POC Glucose (mg/dL) 138 H 143 H (75-99) mg/dL Total Protein (6.3-8.2) g/dL 02/08/21 02/08/21 02/08/21 Range/Units 08:31 11:45 16:58 RBC (4.30-5.90) m/uL Hgb (13.0-17.5) gm/dL Hct (39.0-53.0) % RDW (11.5-15.5) % Lymphocytes # (1.0-4.8) k/uL Sodium 134 L (137-145) mmol/L Glucose 156 H (74-99) mg/dL POC Glucose (mg/dL) 134 H 112 H (75-99) mg/dL Total Protein 5.9 L (6.3-8.2) g/dL Assessment and Plan Plan: Assessment and Plan Non-STEMI (non-ST elevated myocardial infarction) Case discussed with Cardiology. [place] the patient's complaints were related to cardiopulmonary strain secondary to anemia. Patient had no evidence of cardiovascular disease in need of intervention such as stenting when reviewing catheterization note. Medical management planned at this time Reviewed case with Internal Medicine. Stopping the aspirin. Multiple myeloma Pt myeloma numbers are much improved since starting treatment. Patient's cardiac conditions to be medically managed. But also, patient is going to need improved hemoglobin before his symptoms. Treatment may either be dose changed or even some changes in medications to see if we can decrease the hematologic toxicities. DVT (deep venous thrombosis) Resume eliquis 5 mg twice a day Plan: Follow-up in 2 weeks
[2021-02-11] MEDS ORDERED: Lenalidomide [Revlimid] PO SCH (09:00)
[2021-02-11] MEDS ORDERED: dexAMETHasone 4 MG TAB PO SCH (09:00)
== END 2021-02-08 18:59 | disposition home health service (06) | DRG 287 ==
LOC: EC 11:08 → 3SCARD 15:59
PROVIDERS: ADMIT Internal Medicine; ATTEND Internal Medicine
PROC: B2111ZZ Fluoroscopy of Multiple Coronary Arteries using Low Osmolar Contrast (ICD-10-PCS; 2021-02-06)
PROC: 4A023N7 Measurement of Cardiac Sampling and Pressure, Left Heart, Percutaneous Approach (ICD-10-PCS; principal; 2021-02-06 15:30)
DX: I11.0 Hypertensive heart disease with heart failure (principal); E87.1 Hypo-osmolality and hyponatremia; C90.00 Multiple myeloma not having achieved remission; I24.8 Other forms of acute ischemic heart disease; Z68.42 Body mass index [BMI] 45.0-49.9, adult; I50.32 Chronic diastolic (congestive) heart failure; D69.6 Thrombocytopenia, unspecified; I27.20 Pulmonary hypertension, unspecified; E11.9 Type 2 diabetes mellitus without complications; E66.01 Morbid (severe) obesity due to excess calories; Z79.4 Long term (current) use of insulin; Z20.822 Contact with and (suspected) exposure to COVID-19; D63.0 Anemia in neoplastic disease; I08.1 Rheumatic disorders of both mitral and tricuspid valves; F32.9 Major depressive disorder, single episode, unspecified; E78.5 Hyperlipidemia, unspecified; M25.552 Pain in left hip; K64.9 Unspecified hemorrhoids; M19.90 Unspecified osteoarthritis, unspecified site; Z79.01 Long term (current) use of anticoagulants; Z79.82 Long term (current) use of aspirin; Z79.1 Long term (current) use of non-steroidal anti-inflammatories (NSAID); Z79.899 Other long term (current) drug therapy; Z87.39 Personal history of other diseases of the musculoskeletal system and connective tissue; Z98.84 Bariatric surgery status; Z87.891 Personal history of nicotine dependence; Z87.19 Personal history of other diseases of the digestive system; Z98.890 Other specified postprocedural states; Z86.718 Personal history of other venous thrombosis and embolism; Z71.3 Dietary counseling and surveillance; Z88.5 Allergy status to narcotic agent; Z83.49 Family history of other endocrine, nutritional and metabolic diseases
CPT/HCPCS: 36415; 71045; 71046; 71275; 80048; 80053; 80061; 83735; 83880; 84484; 85025; 85027; 87635; 93005; 93306; 93458; 99291

== ENCOUNTER 2021-03-14 18:55 | Observation (INO) | payer MEDICARE ==
[2021-03-14 19:16] LABS: Glucose,Whole Blood 138 mg/dL (75-99)
[2021-03-14] MEDS ORDERED: SODIUM CHLORIDE 0.9% 1,000 ML IV STA (19:17)
[2021-03-14 19:35] LABS: Anisocytosis Slight; Basophils % (A) 1 %; Eosinophils # (A) 0.1 k/uL (0-0.7); Eosinophils % (A) 4 %; HCT 30.3 % (39.0-53.0); HGB 10.3 gm/dL (13.0-17.5); Lymphocytes # (A) 1.2 k/uL (1.0-4.8); Lymphocytes % (A) 35 %; MCH 27.7 pg (25.0-35.0); MCV 81.4 fL (80.0-100.0); Mean Platelet Volume 8.9; Microcytosis Slight; Monocytes # (A) 0.2 k/uL (0-1.0); Monocytes % (A) 7 %; Neutrophils # (A) 1.7 k/uL (1.3-7.7); Neutrophils % (A) 51 %; Platelet Count 165 k/uL (150-450); Poikilocytosis Slight; RBC 3.72 m/uL (4.30-5.90); RDW 17.4 % (11.5-15.5); WBC 3.4 k/uL (3.8-10.6)
--- NOTE | 2021-03-14 19:38 | ED ---
General Adult HPI - General Chief complaint: Dizziness Stated complaint: Dizziness Time Seen by Provider: 03/14/21 19:05 Source: patient, RN notes reviewed, old records reviewed Mode of arrival: wheelchair Limitations: no limitations - History of Present Illness Initial comments: 55-year-old male presenting for evaluation of near syncope. Patient was at a restaurant, had left the restaurant and began feeling very dizzy and lightheaded. He became diaphoretic. He did not fully pass out but was very unsteady on his feet. He denies focal numbness or weakness. Denies chest pain. Denies abdominal pain. Denies nausea vomiting or diarrhea. No rectal bleeding. He states he felt fine prior to this. He did have a chemotherapy shot today for multiple myeloma. - Related Data Home Medications Medication Instructions Recorded Confirmed PARoxetine HCL [Paxil] 40 mg PO DAILY 04/29/14 03/14/21 HYDROcodone/APAP 10-325MG [[place] 1 tab PO QID 08/24/16 03/14/21 10-325] Zolpidem [Ambien] 10 mg PO HS 04/02/17 03/14/21 Ondansetron [Zofran ODT] 4 mg PO Q6H PRN 11/13/20 03/14/21 Sulfamethox-Tmp 800-160Mg [Bactrim 1 tab PO MOWEFR 11/13/20 03/14/21 DS 800-160 mg] Acyclovir 1 tab PO BID 01/03/21 03/14/21 ALPRAZolam [Xanax] 0.5 mg PO DAILY PRN 02/04/21 03/14/21 Apixaban [Eliquis] 5 mg PO BID 02/04/21 03/14/21 Dexamethasone [Decadron] 20 mg PO MO 02/04/21 03/14/21 INSULIN ASPART (NovoLOG) [NovoLOG See Protocol SQ ACHS 02/04/21 03/14/21 (formulary)] Omeprazole 40 mg PO DAILY 02/04/21 03/14/21 Previous Rx's Medication Instructions Recorded Insulin Detemir (Levemir) [Levemir] 24 unit SQ DAILY@0700 #3 vial 11/15/20 Furosemide [Lasix] 40 mg PO DAILY #30 tablet 02/08/21 Allergies Allergy/AdvReac Type Severity Reaction Status Date / Time hydromorphone HCl AdvReac Hallucinati Verified 03/14/21 19:03 [From Dilaudid] ons meperidine HCl [From Demerol] AdvReac Hallucinati Verified 03/14/21 19:03 ons Review of Systems ROS Statement: Those systems with pertinent positive or pertinent negative responses have been documented in the HPI. ROS Other: All systems not noted in ROS Statement are negative. Past Medical History Past Medical History: Cancer, Diabetes Mellitus, Hypertension, Myocardial Infarction ([place]) Additional Past Medical History / Comment(s): gout, chronic back/hip pain, multiple myeloma Last Myocardial Infarction Date:: 02/04/21 History of Any Multi-Drug Resistant Organisms: None Reported Past Surgical History: Orthopedic Surgery Additional Past Surgical History / Comment(s): thymus gland removal, HIP SURGERY., lap band by romelt Past Anesthesia/Blood Transfusion Reactions: No Reported Reaction Past Psychological History: Depression Smoking Status: Former smoker General Exam Limitations: no limitations General appearance: alert, in no apparent distress Head exam: Present: atraumatic, normocephalic Eye exam: Present: normal appearance, PERRL ENT exam: Present: mucous membranes dry Neck exam: Present: normal inspection. Absent: tenderness, meningismus Respiratory exam: Present: normal lung sounds bilaterally. Absent: respiratory distress, wheezes, rales Cardiovascular Exam: Present: normal rhythm, tachycardia GI/Abdominal exam: Present: soft. Absent: distended, tenderness, guarding, rebound Extremities exam: Present: normal inspection, normal capillary refill Neurological exam: Present: alert, oriented X3, CN II-XII intact. Absent: motor sensory deficit Psychiatric exam: Present: normal affect, normal mood Skin exam: Present: warm, diaphoretic, pallor Course Vital Signs 03/14/21 03/14/21 03/14/21 18:58 19:06 19:15 Temperature 98.0 F Pulse Rate 111 H 104 H 108 H Respiratory 18 18 20 Rate Blood Pressure 80/56 106/62 99/58 O2 Sat by Pulse 100 99 100 Oximetry 03/14/21 03/14/21 03/14/21 19:30 19:46 20:30 Temperature Pulse Rate 104 H 85 89 Respiratory 20 18 18 Rate Blood Pressure 91/55 96/48 112/58 O2 Sat by Pulse 99 100 100 Oximetry EKG Findings - EKG Comments: EKG Findings:: Sinus tachycardia, left atrial enlargement, rate of 102, CT inter lianne 170, QRS duration 104, QTC 456, no ST segment elevation, T-wave inversion in lead 3 Medical Decision Making - Medical Decision Making 55-year-old male presenting for evaluation of near-syncope. Patient is initially hypotensive tachycardic. No chest pain or dyspnea. No vomiting or diarrhea. Patient is on 2 antihypertensives and additionally takes Lasix. He took these medications this morning and symptoms did not begin until about 7 PM. Patient's is in sinus rhythm. Chest x-ray negative for acute cardiopulmonary disease. He has a stable hemoglobin at 10.3. Minimally elevated d-dimer 0.65 with a history of DVT. I did order a V/Q scan to rule out pulmonary embolism. He has a minimally elevated creatinine from baseline of 1.46. I suspect the degree of dehydration. Patient will be observed for hydration and V/Q test. Case discussed with Dr. Pennington who will admit. - Lab Data Result diagrams: 03/14/21 19:20 03/14/21 19:20 Lab Results 03/14/21 03/14/21 03/14/21 Range/Units 19:15 19:20 19:20 WBC 3.4 L (3.8-10.6) k/uL RBC 3.72 L (4.30-5.90) m/uL Hgb 10.3 L (13.0-17.5) gm/dL Hct 30.3 L (39.0-53.0) % MCV 81.4 (80.0-100.0) fL MCH 27.7 (25.0-35.0) pg MCHC 34.0 (31.0-37.0) g/dL RDW 17.4 H (11.5-15.5) % Plt Count 165 (150-450) k/uL MPV 8.9 Neutrophils % 51 % Lymphocytes % 35 % Monocytes % 7 % Eosinophils % 4 % Basophils % 1 % Neutrophils # 1.7 (1.3-7.7) k/uL Lymphocytes # 1.2 (1.0-4.8) k/uL Monocytes # 0.2 (0-1.0) k/uL Eosinophils # 0.1 (0-0.7) k/uL Basophils # 0.0 (0-0.2) k/uL Poikilocytosis Slight Anisocytosis Slight Microcytosis Slight PT 10.4 (9.0-12.0) sec INR 1.0 (<1.2) APTT 22.3 (22.0-30.0) sec D-Dimer 0.65 H (<0.60) mg/L FEU Sodium (137-145) mmol/L Potassium (3.5-5.1) mmol/L Chloride (98-107) mmol/L Carbon Dioxide (22-30) mmol/L Anion Gap mmol/L BUN (9-20) mg/dL Creatinine (0.66-1.25) mg/dL Est GFR (CKD-EPI)AfAm (>60 ml/min/1.73 sqM) Est GFR (CKD-EPI)NonAf (>60 ml/min/1.73 sqM) Glucose (74-99) mg/dL POC Glucose (mg/dL) 138 H (75-99) mg/dL POC Glu [employer] Jigna Walker Calcium (8.4-10.2) mg/dL Magnesium (1.6-2.3) mg/dL Total Bilirubin (0.2-1.3) mg/dL AST (17-59) U/L ALT (4-49) U/L Alkaline Phosphatase (38-126) U/L Troponin I (0.000-0.034) ng/mL Total Protein (6.3-8.2) g/dL Albumin (3.5-5.0) g/dL 03/14/21 03/14/21 Range/Units 19:20 19:20 WBC (3.8-10.6) k/uL RBC (4.30-5.90) m/uL Hgb (13.0-17.5) gm/dL Hct (39.0-53.0) % MCV (80.0-100.0) fL MCH (25.0-35.0) pg MCHC (31.0-37.0) g/dL RDW (11.5-15.5) % Plt Count (150-450) k/uL MPV Neutrophils % % Lymphocytes % % Monocytes % % Eosinophils % % Basophils % % Neutrophils # (1.3-7.7) k/uL Lymphocytes # (1.0-4.8) k/uL Monocytes # (0-1.0) k/uL Eosinophils # (0-0.7) k/uL Basophils # (0-0.2) k/uL Poikilocytosis Anisocytosis Microcytosis PT (9.0-12.0) sec INR (<1.2) APTT (22.0-30.0) sec D-Dimer (<0.60) mg/L FEU Sodium 138 (137-145) mmol/L Potassium 3.4 L (3.5-5.1) mmol/L Chloride 101 (98-107) mmol/L Carbon Dioxide 25 (22-30) mmol/L Anion Gap 12 mmol/L BUN 21 H (9-20) mg/dL Creatinine 1.46 H (0.66-1.25) mg/dL Est GFR (CKD-EPI)AfAm 61 (>60 ml/min/1.73 sqM) Est GFR (CKD-EPI)NonAf 53 (>60 ml/min/1.73 sqM) Glucose 133 H (74-99) mg/dL POC Glucose (mg/dL) (75-99) mg/dL POC Glu [employer] ID Calcium 9.7 (8.4-10.2) mg/dL Magnesium 1.4 L (1.6-2.3) mg/dL Total Bilirubin 0.3 (0.2-1.3) mg/dL AST 14 L (17-59) U/L ALT 12 (4-49) U/L Alkaline Phosphatase 72 (38-126) U/L Troponin I 0.020 (0.000-0.034) ng/mL Total Protein 6.1 L (6.3-8.2) g/dL Albumin 4.0 (3.5-5.0) g/dL Disposition Clinical Impression: Multiple myeloma, Dehydration, Near syncope Disposition: ADMITTED IP TO THIS [facility] Condition: Stable Is patient prescribed a controlled substance at d/c from ED?: No Referrals: Perez Pennington MD [Primary Care Provider] - 1-2 days Decision to Admit Reason: Admit from EC Decision Date: 03/14/21 Decision Time: 21:10
[2021-03-14 19:49] LABS: Potassium 3.4 mmol/L (3.5-5.1)
[2021-03-14 19:50] LABS: Calcium 9.7 mg/dL (8.4-10.2); Magnesium 1.4 mg/dL (1.6-2.3); Total Bilirubin 0.3 mg/dL (0.2-1.3); Total Protein 6.1 g/dL (6.3-8.2)
[2021-03-14 19:54] LABS: Partial Thromboplastin Time 22.3 sec (22.0-30.0); Prothrombin Time 10.4 sec (9.0-12.0)
[2021-03-14 19:59] LABS: D-Dimer 0.65 mg/L FEU (<0.60)
--- NOTE | 2021-03-14 20:02 | XR ---
EXAMINATION: XR chest 2V DATE AND TIME: 03/14/2021 7:39 PM CLINICAL INDICATION: PHH; syncope TECHNIQUE: Departmental protocol COMPARISON: 02/07/2021 FINDINGS: Sternal sutures. The lungs are clear. The pleural spaces are negative. The cardiac silhouette is not enlarged. The remainder of the mediastinal silhouette is unremarkable. The skeletal structures and soft tissues are negative for acute findings. IMPRESSION: No acute radiographic process.
[2021-03-14] MEDS ORDERED: NALOXONE 0.4 MG/ML 1 ML VIAL IV PRN (21:06)
[2021-03-14] MEDS: SODIUM CHLORIDE 0.9% 1,000 ML IV SCH (21:33)
[2021-03-14 23:29] LABS: Glucose,Whole Blood 98 mg/dL (75-99)
[2021-03-15 06:25] LABS: Appearance,Urine Cloudy (Clear); Bilirubin,Urine Negative (Negative); Blood,Urine Negative (Negative); Color,Urine Light Yellow; Glucose,Urine (UA) Negative (Negative); Ketones,Urine Negative (Negative); Leukocyte Esterase,Urine Trace (Negative); Mucus,Urine Rare /hpf; Nitrite,Urine Negative (Negative); PH, Urine 5.5 (5.0-8.0); Protein,Urine Negative (Negative); RBC,Urine 1 /hpf (0-5); Specific Gravity,Urine 1.013 (1.001-1.035); Squamous Epithelial Cell,Urine <1 /hpf (0-4); Urobilinogen,Urine <2.0 mg/dL (<2.0); WBC,Urine 3 /hpf (0-5)
[2021-03-15 06:33] LABS: Anisocytosis Slight; Basophils % (A) 1 %; Eosinophils # (A) 0.1 k/uL (0-0.7); Eosinophils % (A) 5 %; HCT 25.3 % (39.0-53.0); Hypochromasia Slight; Lymphocytes # (A) 0.6 k/uL (1.0-4.8); Lymphocytes % (A) 25 %; MCH 28.3 pg (25.0-35.0); MCHC 34.3 g/dL (31.0-37.0); MCV 82.5 fL (80.0-100.0); Mean Platelet Volume 8.1; Monocytes # (A) 0.1 k/uL (0-1.0); Monocytes % (A) 6 %; Neutrophils # (A) 1.4 k/uL (1.3-7.7); Neutrophils % (A) 61 %; Platelet Count 111 k/uL (150-450); Poikilocytosis Slight; RBC 3.07 m/uL (4.30-5.90); RDW 17.5 % (11.5-15.5); WBC 2.2 k/uL (3.8-10.6)
[2021-03-15 06:43] LABS: HGB 8.7 gm/dL (13.0-17.5)
[2021-03-15 06:49] LABS: Albumin 3.2 g/dL (3.5-5.0); Magnesium 1.5 mg/dL (1.6-2.3); Potassium 3.9 mmol/L (3.5-5.1); Total Protein 5.1 g/dL (6.3-8.2)
[2021-03-15 06:50] LABS: Total Bilirubin 0.3 mg/dL (0.2-1.3)
[2021-03-15] MEDS ORDERED: ONDANSETRON 4 MG TAB PO PRN (08:13)
--- NOTE | 2021-03-15 09:09 | NM ---
EXAMINATION TYPE: NM pul vent and perfuse DATE OF EXAM: 03/15/2021 COMPARISON: NONE HISTORY: Shortness of breath TECHNIQUE: Utilizing inhalation of 69.7 mCi Tc 99m DTPA aerosol and intravenous injection of 5.2 mCi of Tc 99m MAA, ventilation and perfusion images are acquired post injection in multiple projections. FINDINGS: Normal radiotracer distribution is noted in the lungs. There is no evidence of mismatched defects. IMPRESSION: Very low probability for pulmonary embolism.
[2021-03-15] MEDS: MAGNESIUM SULFATE-D5W PMX 1 GM in DEXTROSE/WATER 1 100ML.BAG IVPB SCH ×2 (10:41→10:42)
[2021-03-15] MEDS: SODIUM CHLORIDE 0.9% 1,000 ML IV SCH (13:43)
[2021-03-15 14:24] LABS: Glucose,Whole Blood 133 mg/dL (75-99)
[2021-03-15 15:14] VITALS: BMI 35.2
[2021-03-15] MEDS ORDERED: Lenalidomide [Revlimid] PO SCH (16:00)
[2021-03-15] MEDS: HYDROcodone/APAP 10-325MG 1 EACH TAB PO SCH ×2 (16:06→22:02)
[2021-03-15] MEDS: PARoxetine 20 MG TAB PO SCH (16:06)
[2021-03-15] MEDS: PANTOPRAZOLE 40 MG TABLET PO SCH (16:06)
[2021-03-15] MEDS: amLODIPine 10 MG TAB PO SCH (16:06)
[2021-03-15] MEDS ORDERED: LOPERAMIDE 2 MG CAP PO PRN (16:28)
--- NOTE | 2021-03-15 19:28 | US ---
EXAMINATION TYPE: US abdomen complete DATE OF EXAM: 03/15/2021 COMPARISON: NONE CLINICAL HISTORY: RUQ pain, nausea . umbilical pain and reflux, some nausea EXAM MEASUREMENTS: Liver Length: 22.1 cm Gallbladder Wall: 0.3 cm CBD: 0.5 cm Spleen: 16.7 cm Right Kidney: 11.6 x 5.2 x 5.4 cm Left Kidney: 12.3 x 4.4 x 6.7 cm Pancreas: wnl Liver: small cyst seen at medial right anterior lobe = 1.2 x 0.9 x 0.9cm, enlarged Gallbladder: appears slightly contracted with internal echoes, possible small stones and borderline wall thickness Evidence for sonographic Fong's sign: no CBD: wnl Spleen: enlarged Right Kidney: wnl Left Kidney: wnl Upper IVC: wnl Abd Aorta: wnl There is no ascites. There is mild renal cortical thinning. No dilated ducts. IMPRESSION: Contracted gallbladder. No definite gallstones seen. No dilated ducts.
[2021-03-15] MEDS ORDERED: ALPRAZolam 0.25 MG TAB PO SCH (21:00)
[2021-03-15] MEDS: ACYCLOVIR 200 MG CAP PO SCH (21:18)
[2021-03-15] MEDS: APIXABAN 5 MG TAB PO SCH (21:26)
[2021-03-15] MEDS: ACETAMINOPHEN TAB 325 MG TAB PO PRN (21:37)
[2021-03-16] MEDS ORDERED: ZOLPIDEM 5 MG TAB PO SCH ×2 (00:30→22:30)
[2021-03-16] MEDS: SODIUM CHLORIDE 0.9% 1,000 ML IV SCH ×2 (00:38→13:57)
[2021-03-16 03:20] VITALS: RESP 16
[2021-03-16] MEDS: PANTOPRAZOLE 40 MG TABLET PO SCH (07:25)
[2021-03-16 08:45] VITALS: BP 128/72; PULSE 88; TEMP 99.1
[2021-03-16] MEDS: HYDROcodone/APAP 10-325MG 1 EACH TAB PO SCH ×2 (08:52→12:50)
[2021-03-16] MEDS: APIXABAN 5 MG TAB PO SCH (08:52)
[2021-03-16] MEDS: amLODIPine 10 MG TAB PO SCH (08:52)
[2021-03-16] MEDS: PARoxetine 20 MG TAB PO SCH (08:52)
[2021-03-16] MEDS: ACYCLOVIR 200 MG CAP PO SCH (08:52)
[2021-03-16 08:58] LABS: HCT 25.2 % (39.6-50.0); MCH 26.9 pg (27.0-32.0); MCHC 31.7 g/dL (32.0-37.0); MCV 84.8 fL (80.0-97.0); Mean Platelet Volume 11.5 fL (9.5-12.2); Platelet Count 105 X 10*3/uL (140-440); RBC 2.97 X 10*6/uL (4.40-5.60); RDW 15.9 % (11.5-14.5)
[2021-03-16] MEDS ORDERED: LENALIDOMIDE 20 MG PO SCH (09:00)
[2021-03-16] MEDS: ACETAMINOPHEN TAB 325 MG TAB PO PRN (09:38)
[2021-03-16 10:04] LABS: African American GFR (CKD) 96.4 (60.0-200.0); Albumin 3.8 g/dL (3.80-4.90); Albumin/Globulin Ratio 2.92 (1.60-3.17); Anion Gap 7.4 mmol/L (4.00-12.00); Calcium 8.8 mg/dL (8.7-10.3); Carbon Dioxide 25.6 mmol/L (21.6-31.8); Globulin 1.3 g/dL (1.6-3.3); Magnesium 2.1 mg/dL (1.5-2.4); Non-African American GFR(CKD) 83.2 (60.0-200.0); Potassium 3.6 mmol/L (3.5-5.5); Total Bilirubin 0.3 mg/dL (0.3-1.2); Total Protein 5.1 g/dL (6.2-8.2)
[2021-03-16] MEDS ORDERED: ALPRAZolam 0.25 MG TAB PO SCH (22:30)
--- NOTE | 2021-03-16 23:16 | DS ---
DISCHARGE SUMMARY FINAL DIAGNOSES: 1. Dizziness, possibly vasovagal syncope. 2. Possible dehydration. 3. Near syncope. 4. Multiple myeloma. 5. Contracted gallbladder on the ultrasound. 6. Leukopenia. 7. Anemia. 8. Thrombocytopenia. 9. Increased creatinine with mild acute renal failure present on admission improved. 10.Hypomagnesemia. 11.Diabetes mellitus type 2. 12.Hypertension. 13.Myocardial infarction. 14.History of gout. 15.Obesity with body mass of 35.2. DISCHARGE DISPOSITION: The patient will be discharged in stable condition with guarded prognosis. Total time taken 35 minutes. HISTORY: This 55-year-old gentleman with past medical history of multiple medical problems being followed by Dr. Pennington in the outpatient setting, admitted with presyncope, dehydration, multiple medical problems as mentioned earlier. The patient treated symptomatically. Patient on IV fluids. Patient improved significantly. Labs normalized and the patient will be discharged in stable condition with guarded prognosis. On exam vitals stable. Cardiovascular: S1, S2. Abdomen soft. Nontender. NERVOUS SYSTEM: No focal deficits. The patient had persistent pancytopenia to follow up with Hematology, Oncology. Ultrasound also showed a contracted gallbladder to be followed by Dr. Pennington in the outpatient setting. DISCHARGE ADVICE AND MEDICATIONS: 1. Discharge diet is cardiac diet. 2. Activity limited until followup. 3. Follow up with Dr. Pennington 2-3 days. 4. Follow up with Oncology as recommended. 5. Acyclovir 1 tablet p.o. b.i.d. 6. Altace 5 mg p.o. daily. 7. Ambien 10 mg q.h.s. 8. Bactrim DS Thursday, Thursday, Thursday. 9. Decadron 20 mg p.o. Thursday. 10.Eliquis 5 mg p.o. b.i.d. 11.[place] 10 mg p.o. q.i.d. 12.Norvasc 10 mg p.o. daily. 13.Omeprazole 40 mg daily. 14.Paxil 40 mg daily. 15.Revlimid 20 mg as before. 16.Xanax 0.5 q.h.s. 17.Lasix 20 mg p.o. daily. 18.CBC, BMP with Dr. Pennington. MMODL / IJN: [id number] /
[2021-03-18] MEDS ORDERED: dexAMETHasone 4 MG TAB PO SCH (09:00)
--- NOTE | 2021-03-19 17:49 | P.HPIM ---
History of Present Illness H&P Date: 03/15/21 Chief Complaint: Syncopal episode This is a 55-year-old white male with history of multiple myeloma and diabetes who has had good weight loss in the last 2-3 months and his blood sugar has been very well controlled recently. She was at a restaurant and had element of syncope. Evaluation in the ER showed hold dehydration element but because of elevated d-dimer, we are sending for VQ scan. Medicine test is pending. No significant fever or chills. No history of seizure disorder. Review of Systems Constitutional: Denies chills, Denies fever Eyes: denies blurred vision, denies pain Ears, nose, mouth and throat: Denies headache, Denies sore throat Cardiovascular: Denies chest pain, Denies shortness of breath Respiratory: Denies cough Past Medical History Past Medical History: Cancer, Diabetes Mellitus, Hypertension, Myocardial Infarction ([place]) Additional Past Medical History / Comment(s): gout, chronic back/hip pain, multiple myeloma Last Myocardial Infarction Date:: 02/04/21 History of Any Multi-Drug Resistant Organisms: None Reported Past Surgical History: Orthopedic Surgery Additional Past Surgical History / Comment(s): thymus gland removal, HIP SURGERY ., lap band by boutt Past Anesthesia/Blood Transfusion Reactions: No Reported Reaction Past Psychological History: Depression Smoking Status: Former smoker Past Alcohol Use History: None Reported Past Drug Use History: None Reported Medications and Allergies Home Medications Medication Instructions Recorded Confirmed Type PARoxetine HCL [Paxil] 40 mg PO DAILY 04/29/14 03/14/21 History HYDROcodone/APAP 10-325MG [[place] 1 tab PO QID 08/24/16 03/14/21 History 10-325] Zolpidem [Ambien] 10 mg PO HS 04/02/17 03/14/21 History Sulfamethox-Tmp 800-160Mg [Bactrim 1 tab PO MOWEFR 11/13/20 03/14/21 History DS 800-160 mg] Acyclovir 1 tab PO BID 01/03/21 03/14/21 History ALPRAZolam [Xanax] 0.25 mg PO HS 02/04/21 03/14/21 History Apixaban [Eliquis] 5 mg PO BID 02/04/21 03/14/21 History Dexamethasone [Decadron] 20 mg PO MO 02/04/21 03/14/21 History Omeprazole 40 mg PO DAILY 02/04/21 03/14/21 History Furosemide [Lasix] 40 mg PO DAILY #30 tablet 02/08/21 03/14/21 Rx Lenalidomide [Revlimid] 20 mg PO DIRECTED 03/14/21 03/14/21 History Ramipril [Altace] 5 mg PO DAILY 03/14/21 03/14/21 History amLODIPine [Norvasc] 10 mg PO DAILY 03/14/21 03/14/21 History Allergies Allergy/AdvReac Type Severity Reaction Status Date / Time hydromorphone HCl AdvReac Hallucinati Verified 03/14/21 21:45 [From Dilaudid] ons meperidine HCl [From Demerol] AdvReac Hallucinati Verified 03/14/21 21:45 ons Physical Exam Vitals: Vital Signs Temp Pulse Pulse Resp BP BP Pulse Ox 03/15/21 02:00 99.0 F 104 H 18 95/58 99 03/14/21 22:26 98.1 F 89 18 104/59 98 03/14/21 21:33 88 18 115/64 99 03/14/21 20:30 89 18 112/58 100 03/14/21 19:46 85 18 96/48 100 03/14/21 19:30 104 H 20 91/55 99 03/14/21 19:15 108 H 20 99/58 100 03/14/21 19:06 104 H 18 106/62 99 03/14/21 18:58 98.0 F 111 H 18 80/56 100 Intake and Output 03/14/21 03/15/21 03/15/21 22:59 06:59 14:59 Other: # Voids 1 Weight 111.13 kg 111.13 kg - Constitutional General appearance: obese - EENT Eyes: no abnormal pupil - Respiratory Respiratory: bilateral: CTA - Cardiovascular Rhythm: regular Heart sounds: normal: S1, S2 Abnormal Heart Sounds: no S3 Gallop - Gastrointestinal General gastrointestinal: soft, no tenderness - Neurologic Neurologic: CNII-XII intact - Psychiatric Psychiatric: A&O x's 3 Results CBC & Chem 7: 03/15/21 05:14 03/15/21 05:14 Labs: Abnormal Lab Results - Last 24 Hours (Table) 03/14/21 03/14/21 03/14/21 Range/Units 19:15 19:20 19:20 WBC 3.4 L (3.8-10.6) k/uL RBC 3.72 L (4.30-5.90) m/uL Hgb 10.3 L (13.0-17.5) gm/dL Hct 30.3 L (39.0-53.0) % RDW 17.4 H (11.5-15.5) % Plt Count (150-450) k/uL Lymphocytes # (1.0-4.8) k/uL D-Dimer 0.65 H (<0.60) mg/L FEU Potassium (3.5-5.1) mmol/L BUN (9-20) mg/dL Creatinine (0.66-1.25) mg/dL Glucose (74-99) mg/dL POC Glucose (mg/dL) 138 H (75-99) mg/dL Magnesium (1.6-2.3) mg/dL AST (17-59) U/L Total Protein (6.3-8.2) g/dL Albumin (3.5-5.0) g/dL Ur Leukocyte Esterase (Negative) Urine Mucus (None) /hpf 03/14/21 03/15/21 03/15/21 Range/Units 19:20 05:14 05:14 WBC 2.2 L (3.8-10.6) k/uL RBC 3.07 L (4.30-5.90) m/uL Hgb 8.7 L D (13.0-17.5) gm/dL Hct 25.3 L (39.0-53.0) % RDW 17.5 H (11.5-15.5) % Plt Count 111 L (150-450) k/uL Lymphocytes # 0.6 L (1.0-4.8) k/uL D-Dimer (<0.60) mg/L FEU Potassium 3.4 L (3.5-5.1) mmol/L BUN 21 H (9-20) mg/dL Creatinine 1.46 H 1.34 H (0.66-1.25) mg/dL Glucose 133 H (74-99) mg/dL POC Glucose (mg/dL) (75-99) mg/dL Magnesium 1.4 L 1.5 L (1.6-2.3) mg/dL AST 14 L 13 L (17-59) U/L Total Protein 6.1 L 5.1 L (6.3-8.2) g/dL Albumin 3.2 L (3.5-5.0) g/dL Ur Leukocyte Esterase (Negative) Urine Mucus (None) /hpf 03/15/21 Range/Units 05:45 WBC (3.8-10.6) k/uL RBC (4.30-5.90) m/uL Hgb (13.0-17.5) gm/dL Hct (39.0-53.0) % RDW (11.5-15.5) % Plt Count (150-450) k/uL Lymphocytes # (1.0-4.8) k/uL D-Dimer (<0.60) mg/L FEU Potassium (3.5-5.1) mmol/L BUN (9-20) mg/dL Creatinine (0.66-1.25) mg/dL Glucose (74-99) mg/dL POC Glucose (mg/dL) (75-99) mg/dL Magnesium (1.6-2.3) mg/dL AST (17-59) U/L Total Protein (6.3-8.2) g/dL Albumin (3.5-5.0) g/dL Ur Leukocyte Esterase Trace H (Negative) Urine Mucus Rare H (None) /hpf Thrombosis Risk Factor Assmnt - Choose All That Apply Any of the Below Risk Factors Present?: Yes Each Factor Represents 1 point: Age 41-60 years, Obesity (BMI >25), Swollen legs (current) Other Risk Factors: Yes Each Risk Factor Represents 3 Points: History of DVT/PE Other congenital or acquired thrombophilia - If yes, enter type in comment: No Thrombosis Risk Factor Assessment Total Risk Factor Score: 6 Thrombosis Risk Factor Assessment Level: High Risk Assessment and Plan (1) Acute stress reaction Current Visit: No Status: Acute Code(s): F43.0 - ACUTE STRESS REACTION SNOMED Code(s): 67298440 (2) Dehydration Current Visit: Yes Status: Acute Code(s): E86.0 - DEHYDRATION SNOMED Code(s): 33178845 (3) Multiple myeloma Current Visit: Yes Status: Chronic Priority: Medium Code(s): C90.00 - MULTIPLE MYELOMA NOT HAVING ACHIEVED REMISSION SNOMED Code(s): 145838821 (4) Near syncope Current Visit: Yes Status: Acute Code(s): R55 - SYNCOPE AND COLLAPSE SNOMED Code(s): 904906636 (5) Obesity Current Visit: No Status: Acute Code(s): E66.9 - OBESITY, UNSPECIFIED SNOMED Code(s): 323945364 Plan: I suspect element of dehydration is the probable culprit. Multiple myeloma is a secondary to element. Elevated d-dimer. Await nuclear medicine scan. Reconcile home medications are new prep anticipate discharge in next 24 hours if VQ scan is negative.
== END 2021-03-16 13:50 ==
LOC: EC 18:55 → 6NMEDSUR 21:07
PROVIDERS: ADMIT Family Medicine; ATTEND Family Medicine
DX: F43.0 Acute stress reaction (principal); R42 Dizziness and giddiness; R55 Syncope and collapse; C90.00 Multiple myeloma not having achieved remission; K82.0 Obstruction of gallbladder; E86.0 Dehydration; Z20.822 Contact with and (suspected) exposure to COVID-19; D72.819 Decreased white blood cell count, unspecified; D64.9 Anemia, unspecified; D69.6 Thrombocytopenia, unspecified; N17.9 Acute kidney failure, unspecified; E83.42 Hypomagnesemia; E11.9 Type 2 diabetes mellitus without complications; I10 Essential (primary) hypertension; I25.2 Old myocardial infarction; M10.9 Gout, unspecified; E66.9 Obesity, unspecified; F32.9 Major depressive disorder, single episode, unspecified; Z79.4 Long term (current) use of insulin; Z79.899 Other long term (current) drug therapy; Z79.01 Long term (current) use of anticoagulants; Z88.5 Allergy status to narcotic agent; Z68.35 Body mass index [BMI] 35.0-35.9, adult; Z86.718 Personal history of other venous thrombosis and embolism; Z87.891 Personal history of nicotine dependence
CPT/HCPCS: 96361 ×4; 96365; 96366; 99285; 36415; 93005; 85379; 80053 ×3; 83735 ×3; 84484; 85025 ×2; 85027; 85610; 85730; 81001; 87635; 71046; 76700; 78582; 96402; G0378 ×3; A9540; A9567; J3475; J9041

== ENCOUNTER 2021-10-07 18:50 | Emergency (ER) | payer MEDICARE ==
[2021-10-07 19:01] VITALS: RESP 18
--- NOTE | 2021-10-07 19:28 | XR ---
EXAMINATION TYPE: XR chest 2V DATE OF EXAM: 10/07/2021 COMPARISON: 03/14/2021 HISTORY: Short of breath TECHNIQUE: 2 views FINDINGS: There is some coarse mild interstitial density in the mid and lower lung hussein. Heart size is normal. There is no heart failure. There are sternal wires. There is no pleural effusion. IMPRESSION: There is some new mild interstitial pulmonary infiltrate in the mid and lower lung hussein compared to last exam.
--- NOTE | 2021-10-07 19:37 | ED ---
General Adult HPI - General Chief complaint: Shortness of Breath Stated complaint: Covid+, INDRA Time Seen by Provider: 10/07/21 18:57 Source: patient, EMS, RN notes reviewed Mode of arrival: EMS Limitations: no limitations - History of Present Illness Initial comments: 56-year-old male presents emergency Department with chief complaint of COVID- 19. Patient states he started symptoms started 4 days ago to suppository days ago, states she's having increasing shortness of breath no significant fever states nonproductive cough, body aches no GI symptoms. Patient states she's been trying to schedule monoclonal antibodies but states she has not received a phone call back. - Related Data Home Medications Medication Instructions Recorded Confirmed PARoxetine HCL [Paxil] 40 mg PO DAILY 04/29/14 03/21/21 HYDROcodone/APAP 10-325MG [[place] 1 tab PO QID 08/24/16 03/21/21 10-325] Zolpidem [Ambien] 10 mg PO HS 04/02/17 03/21/21 Sulfamethox-Tmp 800-160Mg [Bactrim 1 tab PO MOWEFR 11/13/20 03/21/21 DS 800-160 mg] Acyclovir 1 tab PO BID 01/03/21 03/21/21 ALPRAZolam [Xanax] 0.25 mg PO HS 02/04/21 03/21/21 Apixaban [Eliquis] 5 mg PO BID 02/04/21 03/21/21 Dexamethasone [Decadron] 20 mg PO MO 02/04/21 03/21/21 Omeprazole 40 mg PO DAILY 02/04/21 03/21/21 Lenalidomide [Revlimid] 20 mg PO DIRECTED 03/14/21 03/21/21 Ramipril [Altace] 5 mg PO DAILY 03/14/21 03/21/21 amLODIPine [Norvasc] 10 mg PO DAILY 03/14/21 03/21/21 Pregabalin [Lyrica] 75 mg PO DAILY 03/21/21 03/21/21 Previous Rx's Medication Instructions Recorded Furosemide [Lasix] 20 mg PO DAILY #30 tablet 03/16/21 Allergies Allergy/AdvReac Type Severity Reaction Status Date / Time hydromorphone HCl AdvReac Hallucinati Verified 10/07/21 20:25 [From Dilaudid] ons meperidine HCl [From Demerol] AdvReac Hallucinati Verified 10/07/21 20:25 ons Review of Systems ROS Statement: Those systems with pertinent positive or pertinent negative responses have been documented in the HPI. ROS Other: All systems not noted in ROS Statement are negative. Past Medical History Past Medical History: Cancer, Diabetes Mellitus, Hypertension, Myocardial Infarction ([place]) Additional Past Medical History / Comment(s): gout, chronic back/hip pain, multiple myeloma Last Myocardial Infarction Date:: 02/04/21 History of Any Multi-Drug Resistant Organisms: None Reported Past Surgical History: Orthopedic Surgery Additional Past Surgical History / Comment(s): thymus gland removal, HIP SURGERY., lap band by boutt Past Anesthesia/Blood Transfusion Reactions: No Reported Reaction Past Psychological History: Depression Smoking Status: Former smoker Past Alcohol Use History: None Reported Past Drug Use History: None Reported General Exam General appearance: alert, in no apparent distress Head exam: Present: atraumatic, normocephalic, normal inspection Eye exam: Present: normal appearance, PERRL, EOMI. Absent: scleral icterus, conjunctival injection, periorbital swelling ENT exam: Present: normal exam, normal oropharynx, mucous membranes moist Neck exam: Present: normal inspection, full ROM. Absent: tenderness, meningismus, lymphadenopathy Respiratory exam: Present: normal lung sounds bilaterally. Absent: respiratory distress, wheezes, rales, rhonchi, stridor Cardiovascular Exam: Present: regular rate, normal rhythm, normal heart sounds. Absent: systolic murmur, diastolic murmur, rubs, gallop, clicks Course Vital Signs 10/07/21 10/07/21 18:54 19:05 Temperature 98.5 F Pulse Rate 99 Respiratory 18 18 Rate Blood Pressure 125/79 O2 Sat by Pulse 94 L Oximetry Medical Decision Making - Medical Decision Making patient is positive for COVID-19. Chest x-ray shows evidence of COVID-19 pneumonia patient was given monoclonal antibodies pulse ox at 94% return parameters were discussed patient discharged in stable condition Disposition Clinical Impression: COVID-19 Disposition: HOME SELF-CARE Condition: Stable Instructions (If sedation given, give patient instructions): Coronavirus Disease 2019 (COVID-19) Additional Instructions: Please return to the Emergency Department if symptoms worsen or any other concerns. Is patient prescribed a controlled substance at d/c from ED?: No Referrals: Perez Pennington MD [Primary Care Provider] - 1-2 days Time of Disposition: 20:29
[2021-10-07] MEDS ORDERED: SODIUM CHLORIDE 0.9% 50 ML IVPB ONE (20:15)
[2021-10-07] MEDS ORDERED: SOTROVIMAB (EUA) 500 MG in SODIUM CHLORIDE 0.9% 100 ML IVPB ONE (20:15)
[2021-10-07 21:57] VITALS: BP 126/76; PULSE 82; TEMP 99.4
== END 2021-10-08 00:20 | disposition home or self-care (01) ==
LOC: EC 18:50
DX: U07.1 COVID-19 (principal); E11.9 Type 2 diabetes mellitus without complications; I10 Essential (primary) hypertension; I25.2 Old myocardial infarction; F32.A Depression, unspecified; Z79.01 Long term (current) use of anticoagulants; Z88.5 Allergy status to narcotic agent; Z87.891 Personal history of nicotine dependence
CPT/HCPCS: 99285; 71046; Q0247

== ENCOUNTER 2021-10-14 16:41 | Inpatient (IN) | payer MEDICARE ==
--- NOTE | 2021-10-14 17:42 | ED ---
SOB HPI - General Chief Complaint: Shortness of Breath Stated Complaint: Difficulty Breathing Time Seen by Provider: 10/14/21 17:03 Source: patient, RN notes reviewed Mode of arrival: EMS Limitations: no limitations - History of Present Illness Initial Comments: 56-year-old male with a history of being diagnosed with COVID-19 about one half weeks ago who states she's not gotten any better with respect to his breathing and is in fact having more difficulty with breathing with exertional dyspnea also feeling lightheaded and palpitations when he tries to exert himself. Additionally he states she's feeling depressed he denies any suicidal thoughts at this time however. He states he has a lot of things disease considering and thinking about. No chest pain at this time at rest she isn't not short of breath with any type of exertion he states he gets worse. No other current complaints or modifying factors MD Complaint: shortness of breath - Related Data Home Medications Medication Instructions Recorded Confirmed PARoxetine HCL [Paxil] 40 mg PO DAILY 04/29/14 10/07/21 HYDROcodone/APAP 10-325MG [Winifrede 1 tab PO QID PRN 08/24/16 10/07/21 10-325] Zolpidem [Ambien] 10 mg PO HS 04/02/17 10/07/21 Sulfamethox-Tmp 800-160Mg [Bactrim 1 tab PO MOWEFR 11/13/20 10/07/21 DS 800-160 mg] Acyclovir 1 tab PO BID 01/03/21 10/07/21 ALPRAZolam [Xanax] 0.25 mg PO HS 02/04/21 10/07/21 Apixaban [Eliquis] 5 mg PO BID 02/04/21 10/07/21 Dexamethasone [Decadron] 20 mg PO MO 02/04/21 10/07/21 Omeprazole 40 mg PO DAILY 02/04/21 10/07/21 amLODIPine [Norvasc] 10 mg PO DAILY 03/14/21 10/07/21 Albuterol Sulfate [Albuterol 2 puff PO RT-Q6H PRN 10/07/21 10/07/21 Sulfate Hfa] Folic Acid 1 mg PO DAILY 10/07/21 10/07/21 Furosemide [Lasix] 40 mg PO DAILY 10/07/21 10/07/21 Ibuprofen [Motrin] 400 mg PO Q6H PRN 10/07/21 10/07/21 Ibuprofen [Motrin] 800 mg PO Q8H PRN 10/07/21 10/07/21 predniSONE [Deltasone] See Taper PO DIRECTED 10/07/21 10/07/21 Allergies Allergy/AdvReac Type Severity Reaction Status Date / Time hydromorphone HCl AdvReac Hallucinati Verified 10/14/21 17:01 [From Dilaudid] ons meperidine HCl [From Demerol] AdvReac Hallucinati Verified 10/14/21 17:01 ons Review of Systems ROS Statement: Those systems with pertinent positive or pertinent negative responses have been documented in the HPI. ROS Other: All systems not noted in ROS Statement are negative. Past Medical History Past Medical History: Cancer, Diabetes Mellitus, Hypertension, Myocardial Infarction ([place]) Additional Past Medical History / Comment(s): gout, chronic back/hip pain, multiple myeloma Last Myocardial Infarction Date:: 02/04/21 History of Any Multi-Drug Resistant Organisms: None Reported Past Surgical History: Orthopedic Surgery Additional Past Surgical History / Comment(s): thymus gland removal, HIP SURGERY., lap band by boutt Past Anesthesia/Blood Transfusion Reactions: No Reported Reaction Past Psychological History: Depression Smoking Status: Former smoker Past Alcohol Use History: None Reported Past Drug Use History: None Reported General Exam - General Exam Comments Initial Comments: This is a well-developed well-nourished awake alert oriented 3 male Limitations: no limitations General appearance: alert, in no apparent distress Head exam: Present: atraumatic, normocephalic, normal inspection Eye exam: Present: normal appearance, PERRL, EOMI. Absent: scleral icterus, conjunctival injection, periorbital swelling ENT exam: Present: normal exam, mucous membranes moist Neck exam: Present: normal inspection. Absent: tenderness, meningismus, lymphadenopathy Respiratory exam: Present: decreased breath sounds. Absent: respiratory distress, wheezes, rales, rhonchi, stridor Cardiovascular Exam: Present: normal rhythm, tachycardia, normal heart sounds. Absent: systolic murmur, diastolic murmur, rubs, gallop, clicks GI/Abdominal exam: Present: soft, normal bowel sounds. Absent: distended, tenderness, guarding, rebound, rigid Extremities exam: Present: normal inspection, full ROM, normal capillary refill. Absent: tenderness, pedal edema, joint swelling, calf tenderness Back exam: Present: normal inspection Neurological exam: Present: alert, oriented X3, CN II-XII intact Psychiatric exam: Present: normal mood, flat affect Skin exam: Present: warm, dry, intact, normal color. Absent: rash Course Vital Signs 10/14/21 10/14/21 16:49 18:00 Temperature 98.8 F Pulse Rate 117 H Respiratory 22 20 Rate Blood Pressure 108/74 O2 Sat by Pulse 98 Oximetry Medical Decision Making - Medical Decision Making I did discuss findings with the patient Dr. Pennington the patient will be admitted for inpatient evaluation and treatment additionally patient will be seen by psychiatry. - Lab Data Result diagrams: 10/14/21 17:47 10/14/21 17:47 Lab Results 10/14/21 10/14/21 10/14/21 Range/Units 17:47 17:47 17:47 WBC 7.5 (3.8-10.6) k/uL RBC 4.19 L (4.30-5.90) m/uL Hgb 12.5 L (13.0-17.5) gm/dL Hct 37.9 L (39.0-53.0) % MCV 90.3 (80.0-100.0) fL MCH 29.7 (25.0-35.0) pg MCHC 32.9 (31.0-37.0) g/dL RDW 14.6 (11.5-15.5) % Plt Count 237 (150-450) k/uL MPV 7.8 Neutrophils % 86 % Lymphocytes % 8 % Monocytes % 4 % Eosinophils % 0 % Basophils % 1 % Neutrophils # 6.5 (1.3-7.7) k/uL Lymphocytes # 0.6 L (1.0-4.8) k/uL Monocytes # 0.3 (0-1.0) k/uL Eosinophils # 0.0 (0-0.7) k/uL Basophils # 0.0 (0-0.2) k/uL Hypochromasia Slight Poikilocytosis Slight PT 10.8 (9.0-12.0) sec INR 1.0 (<1.2) APTT 21.0 L (22.0-30.0) sec D-Dimer 1.71 H (<0.60) mg/L FEU Sodium 129 L (137-145) mmol/L Potassium 4.7 (3.5-5.1) mmol/L Chloride 100 (98-107) mmol/L Carbon Dioxide 17 L (22-30) mmol/L Anion Gap 12 mmol/L BUN 40 H (9-20) mg/dL Creatinine 1.21 (0.66-1.25) mg/dL Est GFR (CKD-EPI)AfAm 76 (>60 ml/min/1.73 sqM) Est GFR (CKD-EPI)NonAf 66 (>60 ml/min/1.73 sqM) Glucose 459 H (74-99) mg/dL Plasma Lactic Acid Heladio (0.7-2.0) mmol/L Calcium 9.7 (8.4-10.2) mg/dL Magnesium 1.6 (1.6-2.3) mg/dL Total Bilirubin 0.4 (0.2-1.3) mg/dL AST 15 L (17-59) U/L ALT 11 (4-49) U/L Alkaline Phosphatase 95 (38-126) U/L Troponin I (0.000-0.034) ng/mL NT-Pro-B Natriuret Pep pg/mL Total Protein 6.1 L (6.3-8.2) g/dL Albumin 3.6 (3.5-5.0) g/dL Acetone, Qual (Negative) 10/14/21 10/14/21 10/14/21 Range/Units 17:47 17:47 17:47 WBC (3.8-10.6) k/uL RBC (4.30-5.90) m/uL Hgb (13.0-17.5) gm/dL Hct (39.0-53.0) % MCV (80.0-100.0) fL MCH (25.0-35.0) pg MCHC (31.0-37.0) g/dL RDW (11.5-15.5) % Plt Count (150-450) k/uL MPV Neutrophils % % Lymphocytes % % Monocytes % % Eosinophils % % Basophils % % Neutrophils # (1.3-7.7) k/uL Lymphocytes # (1.0-4.8) k/uL Monocytes # (0-1.0) k/uL Eosinophils # (0-0.7) k/uL Basophils # (0-0.2) k/uL Hypochromasia Poikilocytosis PT (9.0-12.0) sec INR (<1.2) APTT (22.0-30.0) sec D-Dimer (<0.60) mg/L FEU Sodium (137-145) mmol/L Potassium (3.5-5.1) mmol/L Chloride (98-107) mmol/L Carbon Dioxide (22-30) mmol/L Anion Gap mmol/L BUN (9-20) mg/dL Creatinine (0.66-1.25) mg/dL Est GFR (CKD-EPI)AfAm (>60 ml/min/1.73 sqM) Est GFR (CKD-EPI)NonAf (>60 ml/min/1.73 sqM) Glucose (74-99) mg/dL Plasma Lactic Acid Heladio 1.0 (0.7-2.0) mmol/L Calcium (8.4-10.2) mg/dL Magnesium (1.6-2.3) mg/dL Total Bilirubin (0.2-1.3) mg/dL AST (17-59) U/L ALT (4-49) U/L Alkaline Phosphatase (38-126) U/L Troponin I 0.014 (0.000-0.034) ng/mL NT-Pro-B Natriuret Pep 142 pg/mL Total Protein (6.3-8.2) g/dL Albumin (3.5-5.0) g/dL Acetone, Qual (Negative) 10/14/21 Range/Units 17:47 WBC (3.8-10.6) k/uL RBC (4.30-5.90) m/uL Hgb (13.0-17.5) gm/dL Hct (39.0-53.0) % MCV (80.0-100.0) fL MCH (25.0-35.0) pg MCHC (31.0-37.0) g/dL RDW (11.5-15.5) % Plt Count (150-450) k/uL MPV Neutrophils % % Lymphocytes % % Monocytes % % Eosinophils % % Basophils % % Neutrophils # (1.3-7.7) k/uL Lymphocytes # (1.0-4.8) k/uL Monocytes # (0-1.0) k/uL Eosinophils # (0-0.7) k/uL Basophils # (0-0.2) k/uL Hypochromasia Poikilocytosis PT (9.0-12.0) sec INR (<1.2) APTT (22.0-30.0) sec D-Dimer (<0.60) mg/L FEU Sodium (137-145) mmol/L Potassium (3.5-5.1) mmol/L Chloride (98-107) mmol/L Carbon Dioxide (22-30) mmol/L Anion Gap mmol/L BUN (9-20) mg/dL Creatinine (0.66-1.25) mg/dL Est GFR (CKD-EPI)AfAm (>60 ml/min/1.73 sqM) Est GFR (CKD-EPI)NonAf (>60 ml/min/1.73 sqM) Glucose (74-99) mg/dL Plasma Lactic Acid Heladio (0.7-2.0) mmol/L Calcium (8.4-10.2) mg/dL Magnesium (1.6-2.3) mg/dL Total Bilirubin (0.2-1.3) mg/dL AST (17-59) U/L ALT (4-49) U/L Alkaline Phosphatase (38-126) U/L Troponin I (0.000-0.034) ng/mL NT-Pro-B Natriuret Pep pg/mL Total Protein (6.3-8.2) g/dL Albumin (3.5-5.0) g/dL Acetone, Qual Positive (Negative) - EKG Data -: EKG Interpreted by Ms EKG shows normal: sinus rhythm EKG Comments: Sinus rhythm of 93. Interval 164 QRS 96 QT since QTC 332/412 nonspecific T-wave configuration - Radiology Data Radiology results: report reviewed (Image reviews evidence of pneumonia), image reviewed Disposition Clinical Impression: Viral pneumonia, Dehydration, Depression, Elevated d-dimer, Failure to thrive Disposition: ADMITTED IP TO THIS [facility] Condition: Fair Referrals: Perez Pennington MD [Primary Care Provider] - 1-2 days
[2021-10-14 18:07] LABS: Basophils % (A) 1 %; Eosinophils % (A) 0 %; HCT 37.9 % (39.0-53.0); HGB 12.5 gm/dL (13.0-17.5); Hypochromasia Slight; Lymphocytes # (A) 0.6 k/uL (1.0-4.8); Lymphocytes % (A) 8 %; MCH 29.7 pg (25.0-35.0); MCHC 32.9 g/dL (31.0-37.0); MCV 90.3 fL (80.0-100.0); Mean Platelet Volume 7.8; Monocytes # (A) 0.3 k/uL (0-1.0); Monocytes % (A) 4 %; Neutrophils # (A) 6.5 k/uL (1.3-7.7); Neutrophils % (A) 86 %; Platelet Count 237 k/uL (150-450); Poikilocytosis Slight; RBC 4.19 m/uL (4.30-5.90); RDW 14.6 % (11.5-15.5); WBC 7.5 k/uL (3.8-10.6)
[2021-10-14 18:20] LABS: Albumin 3.6 g/dL (3.5-5.0); Calcium 9.7 mg/dL (8.4-10.2); Magnesium 1.6 mg/dL (1.6-2.3); Potassium 4.7 mmol/L (3.5-5.1); Total Bilirubin 0.4 mg/dL (0.2-1.3); Total Protein 6.1 g/dL (6.3-8.2)
[2021-10-14 18:21] LABS: Prothrombin Time 10.8 sec (9.0-12.0)
--- NOTE | 2021-10-14 18:29 | XR ---
EXAMINATION TYPE: XR chest 2V DATE OF EXAM: 10/14/2021 COMPARISON: 10/07/2021 HISTORY: Shortness of breath TECHNIQUE: Frontal and lateral views of the chest are obtained. FINDINGS: There are bilateral diffuse moderate patchy opacities. Pleural effusion, or pneumothorax s een. The cardiac silhouette size is enlarged. CABG seen. The osseous structures are intact. IMPRESSION: Bilateral infiltrates.
[2021-10-14] MEDS ORDERED: SODIUM CHLORIDE 0.9% 1,000 ML IV STA ×3 (18:51→20:06)
[2021-10-14] MEDS ORDERED: IBUPROFEN 800 MG TAB PO PRN (19:31)
--- NOTE | 2021-10-14 20:06 | CT ---
EXAMINATION TYPE: CT angio chest DATE OF EXAM: 10/14/2021 7:37 PM COMPARISON: 02/04/2021 HISTORY: SOB CT DLP: 838.1 mGycm Automated exposure control for dose reduction was used. CONTRAST: CTA scan of the thorax is performed with IV Contrast, patient injected with 80 mL of Isovue 370, pulm onary embolism protocol. MIP images are created and reviewed. FINDINGS: LUNGS: There are bilateral diffuse moderate to marked patchy groundglass opacities. There is no pleur al effusion or pneumothorax seen. The tracheobronchial tree is patent. MEDIASTINUM: There is limited evaluation of the pulmonary artery distal segmental and subsegmental br anches. Otherwise no CT evidence for pulmonary embolism. There are no greater than 1 cm hilar or med iastinal lymph nodes. No pericardial effusion is seen. Median sternotomy noted. OTHER: Gastric lap band seen. No additional significant abnormality is seen. IMPRESSION: FINDINGS CONSISTENT WITH ATYPICAL PNEUMONIA INCLUDING COVID. NO ACUTE PE.
[2021-10-14] MEDS ORDERED: ZOLPIDEM 10 MG TAB PO SCH (21:00)
--- NOTE | 2021-10-14 21:10 | P.HPIM ---
History of Present Illness H&P Date: 10/14/21 Chief Complaint: Weakness This is history and physical on a 56-year-old white male with known history of multiple myeloma who states last week he started feeling poorly. COVID-19 diagnosis is made last week and he had appropriate and fusion. He states since then he's been feeling still weak. He lives with his sister and this is been struggle. He states that she feels stable and laying down and not moving but when he starts ambulating he feels very dizzy. Chest x-ray does show continued pneumonia and is admitted for continued Covid treatment with weakness. Review of Systems Constitutional: Reports fatigue, Denies chills, Denies fever Eyes: denies blurred vision, denies pain Cardiovascular: Denies chest pain, Denies shortness of breath Gastrointestinal: Denies abdominal pain, Denies diarrhea, Denies nausea, Denies vomiting Past Medical History Past Medical History: Cancer, Diabetes Mellitus, Hypertension, Myocardial Infarction ([place]) Additional Past Medical History / Comment(s): gout, chronic back/hip pain, multiple myeloma Last Myocardial Infarction Date:: 02/04/21 History of Any Multi-Drug Resistant Organisms: None Reported Past Surgical History: Orthopedic Surgery Additional Past Surgical History / Comment(s): thymus gland removal, HIP SURGERY., lap band by romelt Past Anesthesia/Blood Transfusion Reactions: No Reported Reaction Past Psychological History: Depression Smoking Status: Former smoker Past Alcohol Use History: None Reported Past Drug Use History: None Reported Medications and Allergies Home Medications Medication Instructions Recorded Confirmed Type PARoxetine HCL [Paxil] 40 mg PO DAILY 04/29/14 10/14/21 History HYDROcodone/APAP 10-325MG [[place] 1 tab PO QID PRN 08/24/16 10/14/21 History 10-325] Zolpidem [Ambien] 10 mg PO HS 04/02/17 10/14/21 History Sulfamethox-Tmp 800-160Mg [Bactrim 1 tab PO MOWEFR 11/13/20 10/14/21 History DS 800-160 mg] Acyclovir 400 mg PO BID 01/03/21 10/14/21 History ALPRAZolam [Xanax] 0.25 mg PO HS 02/04/21 10/14/21 History Apixaban [Eliquis] 5 mg PO BID 02/04/21 10/14/21 History Dexamethasone [Decadron] 20 mg PO MO 02/04/21 10/14/21 History Omeprazole 40 mg PO DAILY 02/04/21 10/14/21 History amLODIPine [Norvasc] 10 mg PO DAILY 03/14/21 10/14/21 History Albuterol Sulfate [Albuterol 2 puff PO RT-Q4H PRN 10/07/21 10/14/21 History Sulfate Hfa] Folic Acid 1 mg PO DAILY 10/07/21 10/14/21 History Furosemide [Lasix] 40 mg PO DAILY 10/07/21 10/14/21 History Ibuprofen [Motrin] 400 mg PO Q6H PRN 10/07/21 10/14/21 History Ibuprofen [Motrin] 800 mg PO Q8H PRN 10/07/21 10/14/21 History Allergies Allergy/AdvReac Type Severity Reaction Status Date / Time hydromorphone HCl AdvReac Hallucinati Verified 10/14/21 20:07 [From Dilaudid] ons meperidine HCl [From Demerol] AdvReac Hallucinati Verified 10/14/21 20:07 ons Physical Exam Vitals: Vital Signs Temp Pulse Resp BP Pulse Ox 10/14/21 18:00 20 10/14/21 16:49 98.8 F 117 H 22 108/74 98 Intake and Output 10/14/21 10/14/21 10/14/21 06:59 14:59 22:59 Other: Weight 127.006 kg - Constitutional General appearance: obese - EENT Eyes: no abnormal pupil - Respiratory Respiratory: bilateral: diminished - Cardiovascular Rhythm: regular Heart sounds: normal: S1, S2 - Gastrointestinal General gastrointestinal: soft, no tenderness - Neurologic Neurologic: CNII-XII intact Results CBC & Chem 7: 10/14/21 17:47 10/14/21 17:47 Labs: Abnormal Lab Results - Last 24 Hours (Table) 10/14/21 10/14/21 10/14/21 Range/Units 17:47 17:47 17:47 RBC 4.19 L (4.30-5.90) m/uL Hgb 12.5 L (13.0-17.5) gm/dL Hct 37.9 L (39.0-53.0) % Lymphocytes # 0.6 L (1.0-4.8) k/uL APTT 21.0 L (22.0-30.0) sec D-Dimer 1.71 H (<0.60) mg/L FEU Sodium 129 L (137-145) mmol/L Carbon Dioxide 17 L (22-30) mmol/L BUN 40 H (9-20) mg/dL Glucose 459 H (74-99) mg/dL AST 15 L (17-59) U/L Total Protein 6.1 L (6.3-8.2) g/dL Assessment and Plan (1) Dehydration Current Visit: Yes Status: Acute Code(s): E86.0 - DEHYDRATION SNOMED Code(s): 85486161 (2) Depression Current Visit: Yes Status: Acute Code(s): F32.A - DEPRESSION, UNSPECIFIED SNOMED Code(s): 57450526 (3) Acute stress reaction Current Visit: No Status: Acute Code(s): F43.0 - ACUTE STRESS REACTION SNOMED Code(s): 72399135 (4) COVID-19 Current Visit: No Status: Acute Code(s): U07.1 - COVID-19 SNOMED Code(s): 906719677 (5) Obesity Current Visit: No Status: Acute Code(s): E66.9 - OBESITY, UNSPECIFIED SNOMED Code(s): 930715253 (6) Multiple myeloma Current Visit: No Status: Chronic Priority: Medium Code(s): C90.00 - MULTIPLE MYELOMA NOT HAVING ACHIEVED REMISSION SNOMED Code(s): 874254415 Plan: Restoril next 24 hours. Increase in relation with physical therapy in the next 24 hours. Check CBC and CMP in a.m. Reconcile medications. The patient is full code otherwise. He is quite depressed. We will go ahead and ask psychiatry to see her If He starts declining, ask pulmonology see the patient
[2021-10-14 21:34] LABS: Glucose,Whole Blood 443 mg/dL (75-99)
[2021-10-14] MEDS: APIXABAN 5 MG TAB PO SCH (21:41)
[2021-10-14] MEDS: ALPRAZolam 0.25 MG TAB PO SCH (21:41)
[2021-10-14] MEDS: BENZONATATE 100 MG CAP PO SCH (21:41)
[2021-10-14] MEDS: INSULIN ASPART (NovoLOG) 100 UNIT/ML VIAL SQ SCH (21:42)
[2021-10-14 22:42] LABS: Amphetamine Screen,Urine Not Detected (NotDetected); Barbiturate Screen,Urine Not Detected (NotDetected); Benzodiazepines Screen,Urine Not Detected (NotDetected); Cocaine Screen,Urine Not Detected (NotDetected); Methadone Screen, Urine Not Detected (NotDetected); Opiate Screen,Urine Detected (NotDetected); Oxycodone Screen, Urine Not Detected (NotDetected); Phencyclidine Screen,Urine Not Detected (NotDetected); Tricyclic Antidepressant,Urine Not Detected (NotDetected); Urn Cannabinoid Scrn Not Detected (NotDetected)
[2021-10-15] MEDS ORDERED: ALBUTEROL HFA INHALER INHALATION SCH
[2021-10-15 07:24] LABS: Glucose,Whole Blood 434 mg/dL (75-99)
[2021-10-15] MEDS: INSULIN ASPART (NovoLOG) 100 UNIT/ML VIAL SQ SCH ×4 (08:18→21:56)
[2021-10-15] MEDS: PANTOPRAZOLE 40 MG TABLET PO SCH (08:19)
[2021-10-15] MEDS: ASCORBIC ACID 500 MG TAB PO SCH (08:19)
[2021-10-15] MEDS: FOLIC ACID 1 MG TAB PO SCH (08:19)
[2021-10-15] MEDS: amLODIPine 10 MG TAB PO SCH (08:19)
[2021-10-15] MEDS: FUROSEMIDE 40 MG TAB PO SCH (08:19)
[2021-10-15] MEDS: PARoxetine 20 MG TAB PO SCH (08:19)
[2021-10-15] MEDS: APIXABAN 5 MG TAB PO SCH ×2 (08:19→21:56)
[2021-10-15] MEDS: BENZONATATE 100 MG CAP PO SCH ×3 (08:19→21:56)
--- NOTE | 2021-10-15 08:19 | P.PN ---
Subjective Principal diagnosis: COVID-19 pneumonia with generalized weakness This is a continuing progress on 48-year-old male essentially here for Covid pneumonia with weakness. The patient has underlying history of diabetes of multiple myeloma. Sitting up without difficulty. He states significant dizziness after ambulating. He suspect this could be residual effects from viral pneumonia. This. We nausea or vomiting. No diarrhea. Tolerating medication treatment. Blood sugars high related to dexamethasone usage Objective - Vital Signs Vital signs: Vital Signs Temp 98.1 F 10/15/21 01:00 Pulse 104 H 10/15/21 01:00 Resp 16 10/15/21 01:00 BP 134/77 10/15/21 01:00 Pulse Ox 99 10/15/21 01:00 Intake & Output 10/14/21 10/15/21 10/15/21 18:59 06:59 18:59 Weight 127.006 kg 127.006 kg Other: # Voids 2 # Bowel Movements 1 - Constitutional General appearance: Present: obese - EENT Eyes: Absent: abnormal pupil - Respiratory Respiratory: bilateral: diminished - Cardiovascular Rhythm: regular Heart sounds: normal: S1, S2 Abnormal Heart Sounds: Absent: S3 Gallop - Gastrointestinal General gastrointestinal: Present: soft. Absent: tenderness - Integumentary Integumentary: Absent: calor - Neurologic Neurologic: Present: CNII-XII intact - Psychiatric Psychiatric: Present: A&O x's 3, appropriate affect - Labs CBC & Chem 7: 10/14/21 17:47 10/14/21 17:47 Labs: Abnormal Lab Results - Last 24 Hours (Table) 10/14/21 10/14/21 10/14/21 Range/Units 17:47 17:47 17:47 RBC 4.19 L (4.30-5.90) m/uL Hgb 12.5 L (13.0-17.5) gm/dL Hct 37.9 L (39.0-53.0) % Lymphocytes # 0.6 L (1.0-4.8) k/uL APTT 21.0 L (22.0-30.0) sec D-Dimer 1.71 H (<0.60) mg/L FEU Sodium 129 L (137-145) mmol/L Carbon Dioxide 17 L (22-30) mmol/L BUN 40 H (9-20) mg/dL Glucose 459 H (74-99) mg/dL POC Glucose (mg/dL) (75-99) mg/dL AST 15 L (17-59) U/L Total Protein 6.1 L (6.3-8.2) g/dL Urine Opiates Screen (NotDetected) Coronavirus (PCR) (Not Detectd) 10/14/21 10/14/21 10/14/21 Range/Units 17:47 20:11 21:22 RBC (4.30-5.90) m/uL Hgb (13.0-17.5) gm/dL Hct (39.0-53.0) % Lymphocytes # (1.0-4.8) k/uL APTT (22.0-30.0) sec D-Dimer (<0.60) mg/L FEU Sodium (137-145) mmol/L Carbon Dioxide (22-30) mmol/L BUN (9-20) mg/dL Glucose (74-99) mg/dL POC Glucose (mg/dL) 443 H (75-99) mg/dL AST (17-59) U/L Total Protein (6.3-8.2) g/dL Urine Opiates Screen Detected H (NotDetected) Coronavirus (PCR) Detected A (Not Detectd) 10/15/21 Range/Units 07:23 RBC (4.30-5.90) m/uL Hgb (13.0-17.5) gm/dL Hct (39.0-53.0) % Lymphocytes # (1.0-4.8) k/uL APTT (22.0-30.0) sec D-Dimer (<0.60) mg/L FEU Sodium (137-145) mmol/L Carbon Dioxide (22-30) mmol/L BUN (9-20) mg/dL Glucose (74-99) mg/dL POC Glucose (mg/dL) 434 H (75-99) mg/dL AST (17-59) U/L Total Protein (6.3-8.2) g/dL Urine Opiates Screen (NotDetected) Coronavirus (PCR) (Not Detectd) Assessment and Plan (1) Dehydration Current Visit: Yes Status: Acute Code(s): E86.0 - DEHYDRATION SNOMED Code(s): 04270583 (2) Depression Current Visit: Yes Status: Acute Code(s): F32.A - DEPRESSION, UNSPECIFIED SNOMED Code(s): 95584561 (3) Acute stress reaction Current Visit: No Status: Acute Code(s): F43.0 - ACUTE STRESS REACTION SNOMED Code(s): 67804389 (4) COVID-19 Current Visit: No Status: Acute Code(s): U07.1 - COVID-19 SNOMED Code(s): 827364888 (5) Obesity Current Visit: No Status: Acute Code(s): E66.9 - OBESITY, UNSPECIFIED SNOMED Code(s): 051582949 (6) Multiple myeloma Current Visit: No Status: Chronic Priority: Medium Code(s): C90.00 - MULTIPLE MYELOMA NOT HAVING ACHIEVED REMISSION SNOMED Code(s): 574471960 Plan: Continue current regimen of treatment. Physical therapy for ambulation.
[2021-10-15] MEDS: ACYCLOVIR 200 MG CAP PO SCH ×2 (08:20→21:56)
[2021-10-15 09:42] LABS: HCT 29.8 % (39.6-50.0); MCH 28.9 pg (27.0-32.0); MCHC 33.6 g/dL (32.0-37.0); MCV 86.1 fL (80.0-97.0); Mean Platelet Volume 10.5 fL (9.5-12.2); Platelet Count 181 X 10*3/uL (140-440); RBC 3.46 X 10*6/uL (4.40-5.60); RDW 12.9 % (11.5-14.5); WBC 6.41 X 10*3/uL (4.50-10.00)
[2021-10-15] MEDS: ALBUTEROL HFA INHALER INHALATION SCH ×5 (10:02→21:01)
[2021-10-15 10:58] LABS: ALT 8 U/L (10-49); AST 6 U/L (14-35); African American GFR (CKD) 85.3 (60.0-200.0); Albumin 3.4 g/dL (3.8-4.9); Albumin/Globulin Ratio 1.79 (1.60-3.17); Alkaline Phosphatase 82 U/L (41-126); BUN/Creat Ratio 27.18 Ratio (12.00-20.00); Blood Urea Nitrogen 29.9 mg/dL (9.0-27.0); Carbon Dioxide 13.6 mmol/L (20.0-27.5); Chloride 98 mmol/L (96-109); Globulin 1.9 g/dL (1.6-3.3); Glucose 461 mg/dL (70-110); Non-African American GFR(CKD) 73.6 (60.0-200.0); Potassium 4.7 mmol/L (3.5-5.5); Sodium 129 mmol/L (135-145); Total Bilirubin <0.20 mg/dL (0.30-1.20); Total Protein 5.3 g/dL (6.2-8.2)
[2021-10-15 11:46] LABS: Glucose,Whole Blood 467 mg/dL (75-99)
--- NOTE | 2021-10-15 13:22 | P.CN ---
Psychiatric Consult - . Consult date: 10/15/21 Consult:: 10/15/21 13:21 IDENTIFYING DATA: This patient is a , retired, 56-year-old male with significant history of cancer, diabetes, NC, presented to the hospital for shortness of breath. Patient is COVID-19 positive. HISTORY OF PRESENT ILLNESS: The patient presented to the hospital on 10/14/21, with a chief complaint of shortness of breath after being recently diagnosed with COVID-19 approximately 1-1/2 weeks ago. Psychiatry has been consulted for evaluation and management of depression. The patient was seen at bedside and endorse that he has been feeling increasingly depressed over the past few months. He states that has been progressively worse due to his failing health. He expresses numerous life stressors, in particular his relationship with his sister with whom he is staying with her as well as his ongoing issues regarding his health. He reports that he is feeling short of breath, weak, and has been feeling increasingly depressed because of this chronic suffering. He vehemently denies any suicidal or homicidal ideation, intention, and/or plan. He expresses that he has thoughts of "Lord, please take me right now." He denies any previous suicide attempts. The patient does endorse significant symptoms of depression including feelings of hopelessness, helplessness, anhedonia, and low appetite. He is otherwise not reporting any issues regarding his hygiene or sleep. The patient has been prescribed Paxil for approximately 20 years. Furthermore, over the past few months he has been previously prescribed Ambien and Xanax. The patient denies any significant history of bipolar disorder or any history of manic or hypomanic symptoms. He reports no history of auditory or visual hallucinations. PAST PSYCHIATRIC HISTORY: Patient has a history of depression and anxiety. The patient states that he has only been on Paxil and most recently Xanax and Ambien. The patient reports that he was hospitalized in 1997 due to suicidal ideation in the context of finding out his was cheating on him and his father passing away. The patient reports that he is not currently open with any outpatient mental health service. Patient denies any history of suicide attempts in the past. PAST MEDICAL HISTORY: Past Medical History: Cancer, Diabetes Mellitus, Hypertension, Myocardial Infarction (NC) Additional Past Medical History / Comment(s): gout, chronic back/hip pain, multiple myeloma Last Myocardial Infarction Date:: 02/04/21 History of Any Multi-Drug Resistant Organisms: None Reported Past Surgical History: Orthopedic Surgery Additional Past Surgical History / Comment(s): thymus gland removal, HIP SURGERY., lap band by romelt Past Anesthesia/Blood Transfusion Reactions: No Reported Reaction Past Psychological History: Depression Smoking Status: Former smoker Past Alcohol Use History: None Reported Past Drug Use History: None Reported ALLERGIES: as per EMR. CHEMICAL DEPENDENCY HISTORY: The patient quit smoking this past November. He reports no alcohol use. He reports no drug use. FAMILY PSYCHIATRIC/SUBSTANCE USE HISTORY: The patient reports no significant family psychiatric or substance abuse history. SOCIAL HISTORY: Patient was born and raised in [place], [place]. The patient currently lives with his sister and her . He is currently for the past 11 years after being for 20. He has 2 children, one of which she is still in contact with, and 3 grandchildren. Prior to retiring due to health reasons, the patient was working at [employer]. The patient stopped working in 2008. He reports no legal history. He reports no service. The patient is Manda[place]. MENTAL STATUS EXAM: General Appearance: Patient appears to be stated age is alert, pleasant, and cooperative. Patient appears to have fair hygiene and grooming wearing hospital gown with fair eye contact. Obese body habitus. Wearing a nasal cannula. Behavior: Patient is calmly sitting upright in his bed eating lunch. Speech: Patient's speech is fluent and nonpressured. Mood/Affect: Patient reports their mood is "depressed", affect is malaised Suicidality/Homicidality: Patient denies any suicidal or homicidal ideation, intention, and/or plan. Perceptions: Patient denies any visual hallucinations and denies any auditory hallucinations Though content/process: There is no evidence of any delusional thought content and thought process is linear and goal-directed. Memory and concentration: AOX3, grossly intact for the purposes of this session. Can spell "WORLD" backwards Judgment and insight: Fair IMPRESSIONS: Major depressive disorder, recurrent, moderate Depressive disorder secondary to general medical condition COVID-19 pneumonia Diabetes mellitus Hypertension Multiple myeloma PLAN: -At this time patient DOES NOT meet criteria for inpatient psychiatric admission. -Would recommend the following medication changes/additions: Recommend discontinuing Ambien as the patient is currently already receiving Xanax as a benzodiazepine. This is to decrease polypharmacy. We will start Remeron 7.5 mg at bedtime to address the patient's issues with insomnia and to help address depressive symptoms including lack of appetite. OK to continue Paxil and Xanax as needed. -Plan was discussed with Dr Pennington via [employer] as per patient request. -Recommend social work to establish outpatient counseling/therapy for the patient upon discharge. -Psychiatry will sign off at this point, please contact with any questions. 10/15/21 13:21
[2021-10-15] MEDS: HYDROcodone/APAP 10-325MG 1 EACH TAB PO PRN (16:24)
[2021-10-15 17:02] LABS: Glucose,Whole Blood 468 mg/dL (75-99)
[2021-10-15 21:14] LABS: Glucose,Whole Blood 357 mg/dL (75-99)
[2021-10-15] MEDS: ALPRAZolam 0.25 MG TAB PO SCH (21:55)
[2021-10-15] MEDS: MIRTAZAPINE 15 MG TAB PO SCH (21:56)
[2021-10-16 07:40] LABS: Glucose,Whole Blood 252 mg/dL (75-99)
[2021-10-16] MEDS: PARoxetine 20 MG TAB PO SCH (07:41)
[2021-10-16] MEDS: amLODIPine 10 MG TAB PO SCH (07:41)
[2021-10-16] MEDS: BENZONATATE 100 MG CAP PO SCH ×3 (07:41→20:40)
[2021-10-16] MEDS: PANTOPRAZOLE 40 MG TABLET PO SCH (07:42)
[2021-10-16] MEDS: INSULIN ASPART (NovoLOG) 100 UNIT/ML VIAL SQ SCH ×4 (07:42→20:38)
[2021-10-16] MEDS: FUROSEMIDE 40 MG TAB PO SCH (07:42)
[2021-10-16] MEDS: APIXABAN 5 MG TAB PO SCH ×2 (07:42→20:39)
[2021-10-16] MEDS: ASCORBIC ACID 500 MG TAB PO SCH (07:42)
[2021-10-16] MEDS: FOLIC ACID 1 MG TAB PO SCH (07:42)
[2021-10-16] MEDS: HYDROcodone/APAP 10-325MG 1 EACH TAB PO PRN ×2 (07:57→15:46)
[2021-10-16] MEDS: ACYCLOVIR 200 MG CAP PO SCH ×2 (08:00→20:40)
[2021-10-16] MEDS: ALBUTEROL HFA INHALER INHALATION SCH ×4 (09:22→19:58)
[2021-10-16 09:43] LABS: HGB 9.4 g/dL (13.0-17.0); MCH 28.7 pg (27.0-32.0); MCHC 33.6 g/dL (32.0-37.0); MCV 85.6 fL (80.0-97.0); Mean Platelet Volume 10.6 fL (9.5-12.2); Platelet Count 154 X 10*3/uL (140-440); RBC 3.27 X 10*6/uL (4.40-5.60); RDW 13.1 % (11.5-14.5); WBC 4.37 X 10*3/uL (4.50-10.00)
[2021-10-16 10:44] LABS: African American GFR (CKD) 108.7 (60.0-200.0); Albumin 3.3 g/dL (3.8-4.9); Albumin/Globulin Ratio 1.94 (1.60-3.17); Anion Gap 12.7 mmol/L (10.00-18.00); BUN/Creat Ratio 22.56 Ratio (12.00-20.00); Blood Urea Nitrogen 20.3 mg/dL (9.0-27.0); Calcium 9.1 mg/dL (8.7-10.3); Carbon Dioxide 20.3 mmol/L (20.0-27.5); Globulin 1.7 g/dL (1.6-3.3); Non-African American GFR(CKD) 93.8 (60.0-200.0); Potassium 4.1 mmol/L (3.5-5.5); Total Bilirubin 0.2 mg/dL (0.30-1.20)
[2021-10-16 11:34] LABS: Glucose,Whole Blood 376 mg/dL (75-99)
--- NOTE | 2021-10-16 14:18 | P.PN ---
Subjective Principal diagnosis: COVID-19 pneumonia with generalized weakness This is a continuing progress on 56-year-old male essentially here for Covid pneumonia with weakness. The patient has underlying history of diabetes of multiple myeloma. Sitting up without difficulty. He states significant dizziness after ambulating. He suspect this could be residual effects from viral pneumonia. This. We nausea or vomiting. No diarrhea. Tolerating medication treatment. Blood sugars high related to dexamethasone usage He is close to being on room air. Objective - Vital Signs Vital signs: Vital Signs Temp 98.1 F 10/16/21 10:00 Pulse 96 10/16/21 10:00 Resp 15 10/16/21 10:00 BP 109/67 10/16/21 10:00 Pulse Ox 98 10/16/21 10:00 Intake & Output 10/15/21 10/16/21 10/16/21 18:59 06:59 18:59 Output Total 2400 Balance -2400 Output: Urine 2400 Other: # Voids 4 3 - Constitutional General appearance: Present: obese - EENT Eyes: Absent: abnormal pupil ENT: Present: hearing grossly normal - Neck Neck: Absent: lymphadenopathy - Respiratory Respiratory: bilateral: CTA, diminished - Cardiovascular Rhythm: regular Heart sounds: normal: S1, S2 Abnormal Heart Sounds: Absent: S3 Gallop - Gastrointestinal General gastrointestinal: Present: soft. Absent: tenderness - Integumentary Integumentary: Absent: cellulitis - Labs CBC & Chem 7: 10/16/21 06:24 10/16/21 06:24 Labs: Abnormal Lab Results - Last 24 Hours (Table) 10/15/21 10/15/21 10/16/21 Range/Units 17:00 21:13 06:24 WBC 4.37 L (4.50-10.00) X 10*3/uL RBC 3.27 L (4.40-5.60) X 10*6/uL Hgb 9.4 L (13.0-17.0) g/dL Hct 28.0 L (39.6-50.0) % BUN/Creatinine Ratio (12.00-20.00) Ratio Glucose (70-110) mg/dL POC Glucose (mg/dL) 468 H 357 H (75-99) mg/dL Total Bilirubin (0.30-1.20) mg/dL AST (14-35) U/L ALT (10-49) U/L Total Protein (6.2-8.2) g/dL Albumin (3.8-4.9) g/dL 10/16/21 10/16/21 10/16/21 Range/Units 06:24 07:36 11:30 WBC (4.50-10.00) X 10*3/uL RBC (4.40-5.60) X 10*6/uL Hgb (13.0-17.0) g/dL Hct (39.6-50.0) % BUN/Creatinine Ratio 22.56 H (12.00-20.00) Ratio Glucose 244 H (70-110) mg/dL POC Glucose (mg/dL) 252 H 376 H (75-99) mg/dL Total Bilirubin 0.20 L (0.30-1.20) mg/dL AST 6 L (14-35) U/L ALT 9 L (10-49) U/L Total Protein 5.0 L (6.2-8.2) g/dL Albumin 3.3 L (3.8-4.9) g/dL Microbiology - Last 24 Hours (Table) 10/14/21 18:18 Blood Culture - Preliminary Blood No Growth after 24 hours 10/14/21 18:00 Blood Culture - Preliminary Blood No Growth after 24 hours Assessment and Plan (1) Dehydration Current Visit: Yes Status: Acute Code(s): E86.0 - DEHYDRATION SNOMED Code( s): 01079104 (2) Depression Current Visit: Yes Status: Acute Code(s): F32.A - DEPRESSION, UNSPECIFIED SNOMED Code(s): 47933787 (3) Acute stress reaction Current Visit: No Status: Acute Code(s): F43.0 - ACUTE STRESS REACTION SNOMED Code(s): 63363704 (4) COVID-19 Current Visit: No Status: Acute Code(s): U07.1 - COVID-19 SNOMED Code(s): 094477958 (5) Obesity Current Visit: No Status: Acute Code(s): E66.9 - OBESITY, UNSPECIFIED SNOMED Code(s): 196044019 (6) Multiple myeloma Current Visit: No Status: Chronic Priority: Medium Code(s): C90.00 - MULTIPLE MYELOMA NOT HAVING ACHIEVED REMISSION SNOMED Code(s): 906672893 Plan: Continue current regimen of treatment. Physical therapy for ambulation. I suspect he could be transferred back home tomorrow. Discharge planning otherwise.
[2021-10-16 17:34] LABS: Glucose,Whole Blood 390 mg/dL (75-99)
[2021-10-16 18:39] LABS: Glucose,Whole Blood 378 mg/dL (75-99)
[2021-10-16 20:24] LABS: Glucose,Whole Blood 508 mg/dL (75-99)
[2021-10-16 20:27] LABS: Glucose,Whole Blood 394 mg/dL (75-99)
[2021-10-16] MEDS: MIRTAZAPINE 15 MG TAB PO SCH (20:40)
[2021-10-16] MEDS: ALPRAZolam 0.25 MG TAB PO SCH (20:40)
[2021-10-17 07:09] LABS: Glucose,Whole Blood 267 mg/dL (75-99)
[2021-10-17] MEDS: APIXABAN 5 MG TAB PO SCH (07:48)
[2021-10-17] MEDS: ASCORBIC ACID 500 MG TAB PO SCH (07:48)
[2021-10-17] MEDS: FUROSEMIDE 40 MG TAB PO SCH (07:48)
[2021-10-17] MEDS: PARoxetine 20 MG TAB PO SCH (07:48)
[2021-10-17] MEDS: BENZONATATE 100 MG CAP PO SCH ×2 (07:49→16:12)
[2021-10-17] MEDS: amLODIPine 10 MG TAB PO SCH (07:49)
[2021-10-17] MEDS: INSULIN ASPART (NovoLOG) 100 UNIT/ML VIAL SQ SCH ×3 (07:49→17:38)
[2021-10-17] MEDS: PANTOPRAZOLE 40 MG TABLET PO SCH (07:49)
[2021-10-17] MEDS: FOLIC ACID 1 MG TAB PO SCH (07:49)
[2021-10-17] MEDS: ACYCLOVIR 200 MG CAP PO SCH (07:49)
[2021-10-17] MEDS: HYDROcodone/APAP 10-325MG 1 EACH TAB PO PRN ×2 (07:53→14:33)
[2021-10-17] MEDS: ALBUTEROL HFA INHALER INHALATION SCH ×3 (09:54→16:26)
[2021-10-17 10:44] LABS: Glucose,Whole Blood 277 mg/dL (75-99)
--- NOTE | 2021-10-17 13:50 | P.DS ---
Providers Date of admission: 10/14/21 19:29 Attending physician: Perez Pennington Consults: 10/14/21 19:29 Consult Physician Routine Consulting Provider: Jack Estevez Consult Reason/Comments: Depression Do you want consulting provider notified?: Already Contacted Primary care physician: Perez Pennington - Discharge Diagnosis(es) (1) Dehydration Current Visit: Yes Status: Acute (2) Depression Current Visit: Yes Status: Acute (3) Acute stress reaction Current Visit: No Status: Acute (4) COVID-19 Current Visit: No Status: Acute (5) Obesity Current Visit: No Status: Acute (6) Multiple myeloma Current Visit: No Status: Chronic Priority: Medium Hospital Course: This discharge summary 56-year-old white male essentially admitted for: Pneumonia with significant history of falling and weakness. He was stabilized with appropriate treatment. Oxygen dependency was not noted on discharge and he is discharged in guarded condition. He is somewhat fearful but living with his sister who is also quite ill and demanding. Patient Condition at Discharge: Fair Plan - Discharge Summary Discharge Rx Participant: No New Discharge Prescriptions: New Ascorbic Acid [Vitamin C] 500 mg PO DAILY #30 tab Continue PARoxetine HCL [Paxil] 40 mg PO DAILY HYDROcodone/APAP 10-325MG [[place] 10-325] 1 tab PO QID PRN PRN Reason: Severe Pain Zolpidem [Ambien] 10 mg PO HS Sulfamethox-Tmp 800-160Mg [Bactrim DS 800-160 mg] 1 tab PO MOWEFR Acyclovir 400 mg PO BID Omeprazole 40 mg PO DAILY Apixaban [Eliquis] 5 mg PO BID Dexamethasone [Decadron] 20 mg PO MO Ibuprofen [Motrin] 800 mg PO Q8H PRN PRN Reason: Moderate Pain ALPRAZolam [Xanax] 0.25 mg PO HS amLODIPine [Norvasc] 10 mg PO DAILY Ibuprofen [Motrin] 400 mg PO Q6H PRN PRN Reason: LOW PAIN Furosemide [Lasix] 40 mg PO DAILY Folic Acid 1 mg PO DAILY Albuterol Sulfate [Albuterol Sulfate Hfa] 2 puff PO RT-Q4H PRN PRN Reason: Shortness Of Breath Discharge Medication List PARoxetine HCL [Paxil] 40 mg PO DAILY 04/29/14 [History] HYDROcodone/APAP 10-325MG [[place] 10-325] 1 tab PO QID PRN 10/23/16 [History] Zolpidem [Ambien] 10 mg PO HS 04/02/17 [History] Sulfamethox-Tmp 800-160Mg [Bactrim DS 800-160 mg] 1 tab PO MOWEFR 11/13/20 [History] Acyclovir 400 mg PO BID 01/03/21 [History] ALPRAZolam [Xanax] 0.25 mg PO HS 02/04/21 [History] Apixaban [Eliquis] 5 mg PO BID 02/04/21 [History] Dexamethasone [Decadron] 20 mg PO MO 02/04/21 [History] Omeprazole 40 mg PO DAILY 02/04/21 [History] amLODIPine [Norvasc] 10 mg PO DAILY 03/14/21 [History] Albuterol Sulfate [Albuterol Sulfate Hfa] 2 puff PO RT-Q4H PRN 10/07/21 [History] Folic Acid 1 mg PO DAILY 10/07/21 [History] Furosemide [Lasix] 40 mg PO DAILY 10/07/21 [History] Ibuprofen [Motrin] 400 mg PO Q6H PRN 10/07/21 [History] Ibuprofen [Motrin] 800 mg PO Q8H PRN 10/07/21 [History] Ascorbic Acid [Vitamin C] 500 mg PO DAILY #30 tab 10/17/21 [Rx] Follow up Appointment(s)/Referral(s): [facility], [NON-STAFF] - As Needed Perez Pennington MD [Primary Care Provider] - 3 Days
[2021-10-17 16:07] LABS: Glucose,Whole Blood 251 mg/dL (75-99)
[2021-10-17 18:12] VITALS: BP 151/81; PULSE 729; RESP 17; TEMP 98.9
== END 2021-10-17 18:39 | disposition home or self-care (01) | DRG 177 ==
LOC: EC 16:41 → 4SSUR 19:29
PROVIDERS: ADMIT Family Medicine; ATTEND Family Medicine
DX: U07.1 COVID-19 (principal); J12.82 Pneumonia due to coronavirus disease 2019; F33.1 Major depressive disorder, recurrent, moderate; C90.00 Multiple myeloma not having achieved remission; Z68.42 Body mass index [BMI] 45.0-49.9, adult; M10.9 Gout, unspecified; G89.29 Other chronic pain; I10 Essential (primary) hypertension; I25.2 Old myocardial infarction; F43.0 Acute stress reaction; E11.9 Type 2 diabetes mellitus without complications; R62.7 Adult failure to thrive; E66.9 Obesity, unspecified; E86.0 Dehydration; Z79.01 Long term (current) use of anticoagulants; Z79.899 Other long term (current) drug therapy; Z87.891 Personal history of nicotine dependence; Z91.81 History of falling; Z90.89 Acquired absence of other organs; M54.9 Dorsalgia, unspecified; M25.559 Pain in unspecified hip; Z98.890 Other specified postprocedural states; Z98.84 Bariatric surgery status
CPT/HCPCS: 36415; 71046; 71275; 80053; 80306; 82009; 83605; 83735; 83880; 84484; 85025; 85027; 85379; 85610; 85730; 87040; 87635; 93005; 94640; 94760; 99285

== ENCOUNTER 2023-05-19 15:02 | Inpatient (IN) | payer MEDICARE ==
[2023-05-19 15:50] LABS: HCT 27.2 % (39.0-53.0); HGB 8.9 gm/dL (13.0-17.5); Hypochromasia Slight; MCH 28.6 pg (25.0-35.0); MCHC 32.7 g/dL (31.0-37.0); MCV 87.6 fL (80.0-100.0); Platelet Count 100 k/uL (150-450); Poikilocytosis Slight; RBC 3.11 m/uL (4.30-5.90); RDW 14.5 % (11.5-15.5); WBC 4.3 k/uL (3.8-10.6)
--- NOTE | 2023-05-19 15:51 | ED ---
Weakness HPI - General Chief complaint: Weakness Stated complaint: Weakness Source: patient, EMS, RN notes reviewed, old records reviewed Mode of arrival: EMS Limitations: no limitations - History of Present Illness Initial comments: This is a 57-year-old male to the emergency department for evaluation of severe weakness sweating and diaphoresis which is been going on for a few days currently. Patient is here in the ER feeling that his skin color is off, his appetite is diminished, patient states she's having diarrhea and unable to ambulate. MD Complaint: generalized weakness, lack of energy, difficulty walking -: hour(s) Location: generalized Severity: moderate Severity scale (1-10): 5 Quality: numbness, sharp Consistency: constant Improves with: none Worsens with: none Context: recent illness, history of similar Associated Symptoms: denies other symptoms - Related Data Home Medications Medication Instructions Recorded Confirmed PARoxetine HCL [Paxil] 40 mg PO DAILY 04/29/14 05/19/23 HYDROcodone/APAP 10-325MG [[place] 1 tab PO QID PRN 08/24/16 05/19/23 10-325] Acyclovir 400 mg PO BID 01/03/21 05/19/23 Omeprazole 40 mg PO DAILY 02/04/21 05/19/23 amLODIPine [Norvasc] 10 mg PO DAILY 03/14/21 05/19/23 Aspirin 81 mg PO DAILY 05/19/23 05/19/23 Metoprolol Tartrate [Lopressor] 12.5 mg PO BID 05/19/23 05/19/23 traZODone HCL [Desyrel] 50 mg PO HS 05/19/23 05/19/23 Previous Rx's Medication Instructions Recorded Acetaminophen Tab [Tylenol] 650 mg PO Q6HR PRN tab 05/26/23 Colchicine [Colcrys] 0.6 mg PO BID 3 Days #6 each 05/26/23 Levofloxacin [Levaquin] 500 mg PO DAILY 7 Days #7 tab 05/26/23 Allergies Allergy/AdvReac Type Severity Reaction Status Date / Time hydromorphone HCl AdvReac Hallucinati Verified 05/19/23 17:27 [From Dilaudid] ons meperidine HCl [From Demerol] AdvReac Hallucinati Verified 05/19/23 17:27 ons Review of Systems ROS Statement: Those systems with pertinent positive or pertinent negative responses have been documented in the HPI. ROS Other: All systems not noted in ROS Statement are negative. Past Medical History Past Medical History: Cancer, Diabetes Mellitus, Hypertension, Myocardial Infarction ([place]) Additional Past Medical History / Comment(s): gout, chronic back/hip pain, multiple myeloma Last Myocardial Infarction Date:: 02/04/21 History of Any Multi-Drug Resistant Organisms: None Reported Past Surgical History: Orthopedic Surgery Additional Past Surgical History / Comment(s): thymus gland removal, HIP SURGERY., lap band by boutt Past Anesthesia/Blood Transfusion Reactions: No Reported Reaction Past Psychological History: Depression Smoking Status: Former smoker Past Alcohol Use History: None Reported Past Drug Use History: None Reported General Exam - General Exam Comments Initial Comments: Diaphoretic Limitations: no limitations General appearance: alert, anxious, lethargic, in distress, obese Head exam: Present: atraumatic, normocephalic, normal inspection Eye exam: Present: normal appearance, PERRL, EOMI. Absent: scleral icterus, conjunctival injection, periorbital swelling ENT exam: Present: normal exam, mucous membranes moist Neck exam: Present: normal inspection. Absent: tenderness, meningismus, lymphadenopathy Respiratory exam: Present: normal lung sounds bilaterally. Absent: respiratory distress, wheezes, rales, rhonchi, stridor Cardiovascular Exam: Present: regular rate, normal rhythm, normal heart sounds. Absent: systolic murmur, diastolic murmur, rubs, gallop, clicks GI/Abdominal exam: Present: soft, normal bowel sounds. Absent: distended, tenderness, guarding, rebound, rigid Extremities exam: Present: normal inspection, full ROM, normal capillary refill. Absent: tenderness, pedal edema, joint swelling, calf tenderness Back exam: Present: normal inspection Neurological exam: Present: alert, oriented X3, CN II-XII intact Psychiatric exam: Present: normal affect, normal mood Skin exam: Present: warm, dry, intact, normal color. Absent: rash Course Vital Signs 05/19/23 05/19/23 05/19/23 15:04 15:11 15:30 Temperature 99.5 F Pulse Rate 85 86 87 Pulse Rate [ Gang Hemstitching Machine Operator ] Respiratory 18 18 16 Rate Blood Pressure 100/89 100/89 93/54 O2 Sat by Pulse 96 96 97 Oximetry 05/19/23 05/19/23 05/19/23 16:00 16:06 16:30 Temperature Pulse Rate 86 85 Pulse Rate [ 85 Gang Hemstitching Machine Operator ] Respiratory 16 15 Rate Blood Pressure 101/75 86/53 O2 Sat by Pulse 96 96 Oximetry 05/19/23 05/19/23 05/19/23 17:00 18:23 18:32 Temperature Pulse Rate 79 73 69 Pulse Rate [ Gang Hemstitching Machine Operator ] Respiratory 18 Rate Blood Pressure 99/52 O2 Sat by Pulse 97 Oximetry 05/19/23 21:20 Temperature Pulse Rate 93 Pulse Rate [ Gang Hemstitching Machine Operator ] Respiratory 18 Rate Blood Pressure 126/76 O2 Sat by Pulse 96 Oximetry - Reevaluation(s) Reevaluation #1: 05/19/23 19:10 Medical records reviewed Reevaluation #2: 05/19/23 19:10 Patient is no change in symptoms here in the ER Reevaluation #3: 05/19/23 19:10 Patient informed results questions answered Reevaluation #4: 05/19/23 17:38 Was pt. sent in by a medical professional or institution? @ -no Did you speak to anyone other than the patient for history? @ -no Did you review nursing and triage notes? @ -agree Were old charts reviewed? @ -yes Differential Diagnosis? @ -prior EKG interpreted by me (3pts min.)? @ -yes X-rays interpreted by me (1pt min.)? @ -yes CT interpreted by me (1pt min.)? @ -yes U/S interpreted by me (1pt. min.)? @ -yes What testing was considered but not performed? (CT, X-rays, U/S, labs)? Why? @ -no What meds were considered but not given? Why? @ -no Did you discuss the management of the patient with other professionals? @ -no Did you reconcile home meds? @ -no Was smoking cessation discussed for >3mins.? @ -no Was critical care preformed (if so, how long)? @ -no Were there social determinants of health that impacted care today? How? (Homelessness, low income, unemployed, alcoholism, drug addiction, transportation, low edu. Level, literacy, decrease access to med. care, detention, rehab)? @ -no Was there de-escalation of care discussed even if they declined? (Discuss DNR or withdrawal of care, Hospice)? @ -no What co-morbidities impacted this encounter? (DM, HTN, Smoking, COPD, CAD, Cancer, CVA, Hep., AIDS, mental health diagnosis, sleep apnea, morbid obesity)? @ -none Was patient admitted / discharged? @ -57 male to the emergency department for severe weakness and lethargy for weeks and diarrhea shortness of breath cough and congestion does have significant bacterial pneumonia, patient missed his skin being very pale and he feels significant sweaty and he can't stop sweating and shaking. Patient is afebrile here in the emergency room it does have somewhat flight arrangements, patient will admit for IV antibiotics and treatment of pneumonia GI consult regarding hyperbilirubinemia with no significant reason on imaging admitted Undiagnosed new problem with uncertain prognosis? @ -no Drug Therapy requiring intensive monitoring for toxicity (Heparin, Nitro, Insulin, Cardizem)? @ -no Were any procedures done? @ -no Diagnosis/symptom? @ -Pneumonia with sepsis Acute, or Chronic, or Acute on Chronic? @ -acute Uncomplicated (without systemic symptoms) or Complicated (systemic symptoms)? @ -complicated Side effects of treatment? @ -no Exacerbation, Progression, or Severe Exacerbation] @ -no Poses a threat to life or bodily function? @ -yes significant illness, sepsis, pneumonia Reevaluation #5: 05/19/23 19:10 Differential Weakness: Hypoglycemia, shock, sepsis, hyponatremia, anemia, infection, [place], ETOH, adverse medicine reaction, overdose, stroke, this is not meant to be an all-inclusive list. - Consultations Consultation #1: spoke w Dr Pennington re patient who agrees for admission EKG Findings - EKG Comments: EKG Findings:: EKG is sinus 85 [place] 136 QRS 125 QTC 431 - EKG Results: EKG: interpreted by ERMD Medical Decision Making - Medical Decision Making 57 male to the emergency department for severe weakness and lethargy for weeks and diarrhea shortness of breath cough and congestion does have significant bacterial pneumonia, patient missed his skin being very pale and he feels significant sweaty and he can't stop sweating and shaking. Patient is afebrile here in the emergency room it does have somewhat flight arrangements, patient will admit for IV antibiotics and treatment of pneumonia GI consult regarding hyperbilirubinemia with no significant reason on imaging - Lab Data Result diagrams: 05/25/23 06:54 05/24/23 08:21 Lab Results 05/19/23 05/19/23 05/19/23 Range/Units 15:27 15:27 15:27 WBC 4.3 (3.8-10.6) k/uL RBC 3.11 L (4.30-5.90) m/uL Hgb 8.9 L (13.0-17.5) gm/dL Hct 27.2 L (39.0-53.0) % MCV 87.6 (80.0-100.0) fL MCH 28.6 (25.0-35.0) pg MCHC 32.7 (31.0-37.0) g/dL RDW 14.5 (11.5-15.5) % Plt Count 100 L (150-450) k/uL MPV 10.0 Neutrophils % (Manual) 85 % Band Neuts % (Manual) 2 % Lymphocytes % (Manual) 9 % Monocytes % (Manual) 3 % Eosinophils % (Manual) 1 % Neutrophils # (Manual) 3.70 (1.3-7.7) k/uL Lymphocytes # (Manual) 0.39 L (1.0-4.8) k/uL Monocytes # (Manual) 0.13 (0-1.0) k/uL Eosinophils # (Manual) 0.04 (0-0.7) k/uL Nucleated RBCs 0 (0-0) /100 WBC Manual Slide Review Performed Toxic Vacuolation Present Hypochromasia Slight Poikilocytosis Slight PT (9.0-12.0) sec INR (<1.2) APTT (22.0-30.0) sec Sodium 130 L (137-145) mmol/L Potassium 2.9 L (3.5-5.1) mmol/L Chloride 97 L (98-107) mmol/L Carbon Dioxide 20 L (22-30) mmol/L Anion Gap 13 mmol/L BUN 41 H (9-20) mg/dL Creatinine 1.92 H (0.66-1.25) mg/dL Est GFR (CKD-EPI)AfAm 43 (>60 ml/min/1.73 sqM) Est GFR (CKD-EPI)NonAf 37 (>60 ml/min/1.73 sqM) Glucose 165 H (74-99) mg/dL Plasma Lactic Acid Heladio (0.7-2.0) mmol/L Calcium 8.1 L (8.4-10.2) mg/dL Phosphorus (2.5-4.5) mg/dL Magnesium 1.7 (1.6-2.3) mg/dL Total Bilirubin 5.4 H (0.2-1.3) mg/dL Conjugated Bilirubin 2.5 H (0.0-0.3) mg/dL Unconjugated Bilirubin 1.3 H (0.0-1.1) mg/dL Delta Bilirubin 1.6 H (0.0-0.2) mg/dL GGT (15-73) U/L AST 23 (17-59) U/L ALT 23 (4-49) U/L Alkaline Phosphatase 157 H (38-126) U/L Ammonia (<30) umol/L Troponin I (0.000-0.034) ng/mL NT-Pro-B Natriuret Pep pg/mL Total Protein 6.0 L (6.3-8.2) g/dL Albumin 2.7 L (3.5-5.0) g/dL Lipase (23-300) U/L Urine Color Dark Yellow Urine Appearance Cloudy (Clear) Urine pH 5.5 (5.0-8.0) Ur Specific [place] 1.015 (1.001-1.035) Urine Protein 1+ H (Negative) Urine Glucose (UA) Negative (Negative) Urine Ketones Negative (Negative) Urine Blood Negative (Negative) Urine Nitrite Negative (Negative) Urine Bilirubin 2+ H (Negative) Urine Urobilinogen 8.0 (<2.0) mg/dL Ur Leukocyte Esterase Negative (Negative) Urine RBC 1 (0-5) /hpf Urine WBC 3 (0-5) /hpf Urine Mucus Rare H (None) /hpf Serum Alcohol mg/dL Hepatitis A IgM Ab Hep Bs Antigen Hep B Core IgM Ab Hep C IgG Ab 05/19/23 05/19/23 05/19/23 Range/Units 15:27 15:27 15:27 WBC (3.8-10.6) k/uL RBC (4.30-5.90) m/uL Hgb (13.0-17.5) gm/dL Hct (39.0-53.0) % MCV (80.0-100.0) fL MCH (25.0-35.0) pg MCHC (31.0-37.0) g/dL RDW (11.5-15.5) % Plt Count (150-450) k/uL MPV Neutrophils % (Manual) % Band Neuts % (Manual) % Lymphocytes % (Manual) % Monocytes % (Manual) % Eosinophils % (Manual) % Neutrophils # (Manual) (1.3-7.7) k/uL Lymphocytes # (Manual) (1.0-4.8) k/uL Monocytes # (Manual) (0-1.0) k/uL Eosinophils # (Manual) (0-0.7) k/uL Nucleated RBCs (0-0) /100 WBC Manual Slide Review Toxic Vacuolation Hypochromasia Poikilocytosis PT (9.0-12.0) sec INR (<1.2) APTT (22.0-30.0) sec Sodium (137-145) mmol/L Potassium (3.5-5.1) mmol/L Chloride (98-107) mmol/L Carbon Dioxide (22-30) mmol/L Anion Gap mmol/L BUN (9-20) mg/dL Creatinine (0.66-1.25) mg/dL Est GFR (CKD-EPI)AfAm (>60 ml/min/1.73 sqM) Est GFR (CKD-EPI)NonAf (>60 ml/min/1.73 sqM) Glucose (74-99) mg/dL Plasma Lactic Acid Heladio 1.5 (0.7-2.0) mmol/L Calcium (8.4-10.2) mg/dL Phosphorus (2.5-4.5) mg/dL Magnesium (1.6-2.3) mg/dL Total Bilirubin (0.2-1.3) mg/dL Conjugated Bilirubin (0.0-0.3) mg/dL Unconjugated Bilirubin (0.0-1.1) mg/dL Delta Bilirubin (0.0-0.2) mg/dL GGT (15-73) U/L AST (17-59) U/L ALT (4-49) U/L Alkaline Phosphatase (38-126) U/L Ammonia (<30) umol/L Troponin I 0.039 H* (0.000-0.034) ng/mL NT-Pro-B Natriuret Pep pg/mL Total Protein (6.3-8.2) g/dL Albumin (3.5-5.0) g/dL Lipase (23-300) U/L Urine Color Urine Appearance (Clear) Urine pH (5.0-8.0) Ur Specific [place] (1.001-1.035) Urine Protein (Negative) Urine Glucose (UA) (Negative) Urine Ketones (Negative) Urine Blood (Negative) Urine Nitrite (Negative) Urine Bilirubin (Negative) Urine Urobilinogen (<2.0) mg/dL Ur Leukocyte Esterase (Negative) Urine RBC (0-5) /hpf Urine WBC (0-5) /hpf Urine Mucus (None) /hpf Serum Alcohol mg/dL Hepatitis A IgM Ab Nonreactive Hep Bs Antigen Nonreactive Hep B Core IgM Ab Nonreactive Hep C IgG Ab Nonreactive 05/19/23 05/19/23 05/19/23 Range/Units 15:27 16:16 16:16 WBC (3.8-10.6) k/uL RBC (4.30-5.90) m/uL Hgb (13.0-17.5) gm/dL Hct (39.0-53.0) % MCV (80.0-100.0) fL MCH (25.0-35.0) pg MCHC (31.0-37.0) g/dL RDW (11.5-15.5) % Plt Count (150-450) k/uL MPV Neutrophils % (Manual) % Band Neuts % (Manual) % Lymphocytes % (Manual) % Monocytes % (Manual) % Eosinophils % (Manual) % Neutrophils # (Manual) (1.3-7.7) k/uL Lymphocytes # (Manual) (1.0-4.8) k/uL Monocytes # (Manual) (0-1.0) k/uL Eosinophils # (Manual) (0-0.7) k/uL Nucleated RBCs (0-0) /100 WBC Manual Slide Review Toxic Vacuolation Hypochromasia Poikilocytosis PT (9.0-12.0) sec INR (<1.2) APTT (22.0-30.0) sec Sodium (137-145) mmol/L Potassium (3.5-5.1) mmol/L Chloride (98-107) mmol/L Carbon Dioxide (22-30) mmol/L Anion Gap mmol/L BUN (9-20) mg/dL Creatinine (0.66-1.25) mg/dL Est GFR (CKD-EPI)AfAm (>60 ml/min/1.73 sqM) Est GFR (CKD-EPI)NonAf (>60 ml/min/1.73 sqM) Glucose (74-99) mg/dL Plasma Lactic Acid Heladio (0.7-2.0) mmol/L Calcium (8.4-10.2) mg/dL Phosphorus 4.4 (2.5-4.5) mg/dL Magnesium (1.6-2.3) mg/dL Total Bilirubin (0.2-1.3) mg/dL Conjugated Bilirubin (0.0-0.3) mg/dL Unconjugated Bilirubin (0.0-1.1) mg/dL Delta Bilirubin (0.0-0.2) mg/dL GGT (15-73) U/L AST (17-59) U/L ALT (4-49) U/L Alkaline Phosphatase (38-126) U/L Ammonia <9 (<30) umol/L Troponin I (0.000-0.034) ng/mL NT-Pro-B Natriuret Pep 6540 pg/mL Total Protein (6.3-8.2) g/dL Albumin (3.5-5.0) g/dL Lipase 92 (23-300) U/L Urine Color Urine Appearance (Clear) Urine pH (5.0-8.0) Ur Specific [place] (1.001-1.035) Urine Protein (Negative) Urine Glucose (UA) (Negative) Urine Ketones (Negative) Urine Blood (Negative) Urine Nitrite (Negative) Urine Bilirubin (Negative) Urine Urobilinogen (<2.0) mg/dL Ur Leukocyte Esterase (Negative) Urine RBC (0-5) /hpf Urine WBC (0-5) /hpf Urine Mucus (None) /hpf Serum Alcohol <10 mg/dL Hepatitis A IgM Ab Hep Bs Antigen Hep B Core IgM Ab Hep C IgG Ab 05/19/23 05/19/23 Range/Units 16:50 17:26 WBC (3.8-10.6) k/uL RBC (4.30-5.90) m/uL Hgb (13.0-17.5) gm/dL Hct (39.0-53.0) % MCV (80.0-100.0) fL MCH (25.0-35.0) pg MCHC (31.0-37.0) g/dL RDW (11.5-15.5) % Plt Count (150-450) k/uL MPV Neutrophils % (Manual) % Band Neuts % (Manual) % Lymphocytes % (Manual) % Monocytes % (Manual) % Eosinophils % (Manual) % Neutrophils # (Manual) (1.3-7.7) k/uL Lymphocytes # (Manual) (1.0-4.8) k/uL Monocytes # (Manual) (0-1.0) k/uL Eosinophils # (Manual) (0-0.7) k/uL Nucleated RBCs (0-0) /100 WBC Manual Slide Review Toxic Vacuolation Hypochromasia Poikilocytosis PT 14.0 H (9.0-12.0) sec INR 1.4 H (<1.2) APTT 21.4 L (22.0-30.0) sec Sodium (137-145) mmol/L Potassium (3.5-5.1) mmol/L Chloride (98-107) mmol/L Carbon Dioxide (22-30) mmol/L Anion Gap mmol/L BUN (9-20) mg/dL Creatinine (0.66-1.25) mg/dL Est GFR (CKD-EPI)AfAm (>60 ml/min/1.73 sqM) Est GFR (CKD-EPI)NonAf (>60 ml/min/1.73 sqM) Glucose (74-99) mg/dL Plasma Lactic Acid Heladio (0.7-2.0) mmol/L Calcium (8.4-10.2) mg/dL Phosphorus (2.5-4.5) mg/dL Magnesium (1.6-2.3) mg/dL Total Bilirubin (0.2-1.3) mg/dL Conjugated Bilirubin (0.0-0.3) mg/dL Unconjugated Bilirubin (0.0-1.1) mg/dL Delta Bilirubin (0.0-0.2) mg/dL GGT 95 H (15-73) U/L AST (17-59) U/L ALT (4-49) U/L Alkaline Phosphatase (38-126) U/L Ammonia (<30) umol/L Troponin I (0.000-0.034) ng/mL NT-Pro-B Natriuret Pep pg/mL Total Protein (6.3-8.2) g/dL Albumin (3.5-5.0) g/dL Lipase (23-300) U/L Urine Color Urine Appearance (Clear) Urine pH (5.0-8.0) Ur Specific [place] (1.001-1.035) Urine Protein (Negative) Urine Glucose (UA) (Negative) Urine Ketones (Negative) Urine Blood (Negative) Urine Nitrite (Negative) Urine Bilirubin (Negative) Urine Urobilinogen (<2.0) mg/dL Ur Leukocyte Esterase (Negative) Urine RBC (0-5) /hpf Urine WBC (0-5) /hpf Urine Mucus (None) /hpf Serum Alcohol mg/dL Hepatitis A IgM Ab Hep Bs Antigen Hep B Core IgM Ab Hep C IgG Ab - EKG Data -: EKG Interpreted by Me - Radiology Data Radiology results: report reviewed (US gallbladder negative for acute disease CT chest abdomen pelvis negative for acute disease, chest x-rays positive for pneumonia), image reviewed Disposition Clinical Impression: Multiple myeloma, Dehydration, Bacterial pneumonia, Hyperbilirubinemia, Anemia, Hypokalemia, Hyponatremia, Medication side effect, Obesity, Pneumonia, Acute kidney injury, Near syncope Disposition: ADMITTED IP TO THIS HOSP Condition: Fair Is patient prescribed a controlled substance at d/c from ED?: No Time of Disposition: 20:00
[2023-05-19 16:09] LABS: ALT 23 U/L (4-49); AST 23 U/L (17-59); African American GFR (CKD) 43 (>60 ml/min/1.73 sqM); Albumin 2.7 g/dL (3.5-5.0); Alkaline Phosphatase 157 U/L (38-126); Anion Gap 13 mmol/L; Bilirubin, Conjugated 2.5 mg/dL (0.0-0.3); Bilirubin, Delta 1.6 mg/dL (0.0-0.2); Bilirubin,Unconjugated 1.3 mg/dL (0.0-1.1); Blood Urea Nitrogen 41 mg/dL (9-20); Calcium 8.1 mg/dL (8.4-10.2); Carbon Dioxide 20 mmol/L (22-30); Chloride 97 mmol/L (98-107); Glucose 165 mg/dL (74-99); Magnesium 1.7 mg/dL (1.6-2.3); Non-African American GFR(CKD) 37 (>60 ml/min/1.73 sqM); Potassium 2.9 mmol/L (3.5-5.1); Sodium 130 mmol/L (137-145); Total Bilirubin 5.4 mg/dL (0.2-1.3)
--- NOTE | 2023-05-19 16:19 | XR ---
EXAMINATION TYPE: XR chest 2V DATE OF EXAM: 05/19/2023 COMPARISON: 10/14/2021 HISTORY: 57-year-old male with weakness TECHNIQUE: AP and lateral views FINDINGS: Median sternotomy wires are present with post-CABG clips. Heart border line in size. Hazy densities r elating to large patient body habitus and likely some underlying hypoventilatory change. There is a f ocal area of airspace opacity posterior right midlung. No pleural effusion. IMPRESSION: Focal posterior right midlung pneumonia. Follow-up after treatment to ensure clearance.
[2023-05-19 16:41] LABS: Alcohol <10 mg/dL; Lipase 92 U/L (23-300); Phosphorus 4.4 mg/dL (2.5-4.5)
[2023-05-19 17:02] LABS: Band Neutrophils % 2 %; Eosinophils # (M) 0.04 k/uL (0-0.7); Lymphocytes # (M) 0.39 k/uL (1.0-4.8); Monocytes # (M) 0.13 k/uL (0-1.0); Neutrophils % (M) 85 %; Nucleated Red Blood Cells 0 /100 WBC (0-0); Total Cells Counted 100; Toxic Vacuolation Present
[2023-05-19] MEDS ORDERED: SODIUM CHLORIDE 0.9% 2,000 ML IV STA (17:15)
[2023-05-19 17:33] LABS: INR 1.4 (<1.2)
[2023-05-19 17:34] LABS: Partial Thromboplastin Time 21.4 sec (22.0-30.0)
[2023-05-19] MEDS ORDERED: NALOXONE 0.4 MG/ML 1 ML VIAL IV PRN (17:51)
[2023-05-19] MEDS ORDERED: ONDANSETRON 4 MG/2 ML VIAL IVP PRN (17:51)
[2023-05-19] MEDS ORDERED: IPRATROPIUM-ALBUTEROL 3 ML NEB INHALATION PRN (17:53)
[2023-05-19] MEDS ORDERED: AZITHROMYCIN 500 MG in SODIUM CHLORIDE 0.9% 250 ML IVPB STA (17:53)
[2023-05-19] MEDS ORDERED: IPRATROPIUM-ALBUTEROL 3 ML NEB INHALATION STA (17:53)
[2023-05-19] MEDS ORDERED: POTASSIUM BICARBONATE/CIT AC 20 MEQ TABLET.EFF PO ONE ×2 (18:00→20:00)
--- NOTE | 2023-05-19 18:09 | US ---
EXAMINATION TYPE: US gallbladder DATE OF EXAM: 05/19/2023 COMPARISON: 03/15/21 CLINICAL INDICATION: Male, 57 years old with history of pain; RUQ pain TECHNIQUE: Multiple sonographic images of the right upper quadrant are obtained. FINDINGS: EXAM MEASUREMENTS: Liver Length: 19.9 cm Gallbladder Wall: 0.26 cm CBD: 0.36 cm Right Kidney: 11.6 x 5.7 x 5.7 cm COLLECTION DEVELOPMENT LIBRARIAN NOTES: Pancreas: Obscured by bowel gas, visualized portions appear within normal limits. Liver: Partially limited due to body habitus . Hepatomegaly Gallbladder: No stones seen Evidence for sonographic Fong's sign: No CBD: Within normal limits. Right Kidney: No hydronephrosis or masses seen IMPRESSION: 1. Hepatomegaly. 2. Normal appearance of the gallbladder.
[2023-05-19] MEDS: SODIUM CHLORIDE 0.9% 1,000 ML IV SCH (18:54)
--- NOTE | 2023-05-19 20:47 | CT ---
EXAMINATION TYPE: CT ChestAbdPelvis wo con CT DLP: 2519.8 mGycm, Automated exposure control for dose reduction was used. DATE OF EXAM: 05/19/2023 7:41 PM COMPARISON: Chest x-ray 05/19/2023, CTA chest 10/14/2021 CLINICAL INDICATION:Male, 57 years old with history of pain; PHH, weakness, pna Technique: Multiple axial images of the chest, abdomen, and pelvis were obtained. Two-dimensional cor onal and sagittal reconstructions were obtained. Contrast used:None Oral contrast used: with Oral Contrast Findings: CHEST: LUNGS/ PLEURA: Right lower lobe airspace opacity with multifocal subsegmental atelectasis. No pleural effusion or pneumothorax. AIRWAY: Patent and unremarkable. HEART: Size within normal limits. MEDIASTINUM: No gross evidence of adenopathy. VASCULATURE: No aortic aneurysm. MUSCULOSKELETAL: Sternotomy wires present. Multilevel discogenic and degenerative changes of the thor acic spine. SOFT TISSUES/LYMPH NODES: Unremarkable. LOWER NECK: No significant findings. ABDOMEN: ABDOMEN LIVER: Unremarkable GALLBLADDER AND BILE DUCTS: Unremarkable. PANCREAS: Unremarkable. SPLEEN: Unremarkable. ADRENAL GLANDS: Unremarkable. KIDNEYS AND URETERS: Nonobstructing 6 mm right renal calculus. No hydronephrosis. Left kidney is norm al in appearance. PELVIS BLADDER: Streak artifact from left partially obscures the pelvis. Bladder is grossly unremarkable. REPRODUCTIVE: Obscured from streak artifact. ABDOMEN & PELVIS STOMACH AND BOWEL: Small hiatal hernia. Gastric lap band with reservoir in the left anterior abdomina l wall.. Scattered diverticula are noted throughout the colon. No evidence of bowel obstruction. PERITONEUM: No evidence of pneumoperitoneum or free fluid. VASCULATURE: No evidence of aortic aneurysm. MUSCULOSKELETAL: Grade 1 anterolisthesis of L4 and L5. Multilevel discogenic and degenerative changes . Left total hip arthroplasty with heterotopic ossification. Severe right hip osteoarthritis. LYMPH NODES: No gross evidence for lymphadenopathy. SOFT TISSUE/ABDOMINAL WALL: Fat-containing left inguinal hernia. IMPRESSION: 1. Right lower lobe airspace consolidation concerning for acute infectious process. 2. Colonic diverticulosis without acute inflammatory changes. 3. Non-obstructing right renal calculi and other incidental findings as detailed above.
[2023-05-19 21:24] LABS: Appearance,Urine Cloudy (Clear); Bilirubin,Urine 2+ (Negative); Blood,Urine Negative (Negative); Color,Urine Dark Yellow; Glucose,Urine (UA) Negative (Negative); Ketones,Urine Negative (Negative); Leukocyte Esterase,Urine Negative (Negative); Mucus,Urine Rare /hpf; Nitrite,Urine Negative (Negative); PH, Urine 5.5 (5.0-8.0); Protein,Urine 1+ (Negative); RBC,Urine 1 /hpf (0-5); Specific Gravity,Urine 1.015 (1.001-1.035); WBC,Urine 3 /hpf (0-5)
[2023-05-19] MEDS ORDERED: LORazepam 2 MG/ML INJ IV STA (21:52)
[2023-05-19] MEDS ORDERED: SODIUM CHLORIDE 0.9% 1,000 ML IV ONE (21:53)
[2023-05-19] MEDS ORDERED: ALPRAZolam 0.5 MG TAB PO STA (22:59)
[2023-05-20] MEDS: METOPROLOL TARTRATE 12.5 MG TAB PO SCH ×3 (00:29→21:25)
[2023-05-20] MEDS: traZODone HCL 50 MG TAB PO SCH ×2 (00:29→21:25)
[2023-05-20 02:41] LABS: Hepatitis A Antibody IgM Nonreactive; Hepatitis B Surface Antigen Nonreactive
[2023-05-20 02:42] LABS: Hepatitis B Core IgM Nonreactive; Hepatitis C IgG Antibody Nonreactive
[2023-05-20] MEDS ORDERED: Potassium Replacement Protocol 1 EACH MISC MISCELLANE PRN (08:02)
[2023-05-20] MEDS ORDERED: IBUPROFEN 800 MG TAB PO PRN (08:02)
[2023-05-20] MEDS ORDERED: DEXTROSE 50% SYRINGE 50 ML IVP PRN ×4 (08:35→16:48)
--- NOTE | 2023-05-20 08:40 | P.HPIM ---
History of Present Illness H&P Date: 05/20/23 Chief Complaint: Jaundice The patient is a 57-year-old white male who is coming in with excessive gas for the last several months. Significant weakness is noted and he came in with appropriate workup in the emergency room and showed significant jaundice. The patient has not coming complaining of any type of shortness of breath or hemoptysis or hematemesis. He has an underlying history of diabetes which when he was being treated for multiple myeloma he lost considerable amount of weight and has been fairly diet controlled for a while. However he does have history of diabetes in the past. Multiple orthopedic surgeries in the past and history of lap scopic banding surgery for weight loss. Fevers noted since admission. The patient is appropriately admitted for hyperbilirubinemia. The patient denies any ethanol or illicit substance abuse. Review of Systems Constitutional: Denies chills, Denies fever Eyes: denies blurred vision, denies pain Ears, nose, mouth and throat: Denies headache, Denies sore throat Cardiovascular: Denies chest pain, Denies shortness of breath Respiratory: Denies cough Gastrointestinal: Reports excessive gas Musculoskeletal: Denies myalgias Past Medical History Past Medical History: Cancer, Diabetes Mellitus, Hypertension, Myocardial Infarction ([place]) Additional Past Medical History / Comment(s): gout, chronic back/hip pain, multiple myeloma Last Myocardial Infarction Date:: 02/04/21 History of Any Multi-Drug Resistant Organisms: None Reported Past Surgical History: Orthopedic Surgery Additional Past Surgical History / Comment(s): thymus gland removal, HIP SURGERY., lap band by romelt Past Anesthesia/Blood Transfusion Reactions: No Reported Reaction Past Psychological History: Depression Smoking Status: Former smoker Past Alcohol Use History: None Reported Past Drug Use History: None Reported Medications and Allergies Home Medications Medication Instructions Recorded Confirmed Type PARoxetine HCL [Paxil] 40 mg PO DAILY 04/29/14 05/19/23 History HYDROcodone/APAP 10-325MG [[place] 1 tab PO QID PRN 08/24/16 05/19/23 History 10-325] Acyclovir 400 mg PO BID 01/03/21 05/19/23 History Omeprazole 40 mg PO DAILY 02/04/21 05/19/23 History amLODIPine [Norvasc] 10 mg PO DAILY 03/14/21 05/19/23 History Ibuprofen [Motrin] 800 mg PO Q8H PRN 10/07/21 05/19/23 History Aspirin 81 mg PO DAILY 05/19/23 05/19/23 History Lenalidomide [Revlimid] 5 mg PO DAILY 05/19/23 05/19/23 History Metoprolol Tartrate [Lopressor] 12.5 mg PO BID 05/19/23 05/19/23 History traZODone HCL [Desyrel] 50 mg PO HS 05/19/23 05/19/23 History Allergies Allergy/AdvReac Type Severity Reaction Status Date / Time hydromorphone HCl AdvReac Hallucinati Verified 05/19/23 17:27 [From Dilaudid] ons meperidine HCl [From Demerol] AdvReac Hallucinati Verified 05/19/23 17:27 ons Physical Exam Vitals: Vital Signs Temp Pulse Pulse Pulse Resp BP BP 05/20/23 08:33 05/20/23 06:45 101.6 F H 98 18 114/72 05/20/23 00:53 100.5 F H 101 H 18 110/62 05/19/23 22:10 99.1 F 103 H 18 136/75 05/19/23 21:20 93 18 126/76 05/19/23 18:32 69 05/19/23 18:23 73 05/19/23 17:00 79 18 99/52 05/19/23 16:30 85 15 86/53 05/19/23 16:06 85 05/19/23 16:00 86 16 101/75 05/19/23 15:30 87 16 93/54 05/19/23 15:11 86 18 100/89 05/19/23 15:04 99.5 F 85 18 100/89 Pulse Ox 05/20/23 08:33 95 05/20/23 06:45 95 05/20/23 00:53 95 05/19/23 22:10 95 05/19/23 21:20 96 05/19/23 18:32 05/19/23 18:23 05/19/23 17:00 97 05/19/23 16:30 96 05/19/23 16:06 05/19/23 16:00 96 05/19/23 15:30 97 05/19/23 15:11 96 05/19/23 15:04 96 Intake and Output 05/19/23 05/20/23 05/20/23 22:59 06:59 14:59 Output Total 600 200 Balance -600 -200 Output: Urine 600 200 Other: Voiding Method Urinal Weight 158.757 kg - Constitutional General appearance: morbidly obese - EENT Eyes: EOMI - Neck Neck: no lymphadenopathy - Respiratory Respiratory: bilateral: diminished - Cardiovascular Rhythm: regular Heart sounds: normal: S1, S2 Abnormal Heart Sounds: no S3 Gallop - Gastrointestinal General gastrointestinal: soft, no tenderness - Integumentary Integumentary: jaundiced - Psychiatric Psychiatric: A&O x's 3 Results CBC & Chem 7: 05/19/23 15:27 05/19/23 15:27 Labs: Abnormal Lab Results - Last 24 Hours (Table) 05/19/23 05/19/23 05/19/23 Range/Units 15:27 15:27 15:27 RBC 3.11 L (4.30-5.90) m/uL Hgb 8.9 L (13.0-17.5) gm/dL Hct 27.2 L (39.0-53.0) % Plt Count 100 L (150-450) k/uL Lymphocytes # (Manual) 0.39 L (1.0-4.8) k/uL PT (9.0-12.0) sec INR (<1.2) APTT (22.0-30.0) sec Sodium 130 L (137-145) mmol/L Potassium 2.9 L (3.5-5.1) mmol/L Chloride 97 L (98-107) mmol/L Carbon Dioxide 20 L (22-30) mmol/L BUN 41 H (9-20) mg/dL Creatinine 1.92 H (0.66-1.25) mg/dL Glucose 165 H (74-99) mg/dL Calcium 8.1 L (8.4-10.2) mg/dL Total Bilirubin 5.4 H (0.2-1.3) mg/dL Conjugated Bilirubin 2.5 H (0.0-0.3) mg/dL Unconjugated Bilirubin 1.3 H (0.0-1.1) mg/dL Delta Bilirubin 1.6 H (0.0-0.2) mg/dL GGT (15-73) U/L Alkaline Phosphatase 157 H (38-126) U/L Troponin I (0.000-0.034) ng/mL Total Protein 6.0 L (6.3-8.2) g/dL Albumin 2.7 L (3.5-5.0) g/dL Urine Protein 1+ H (Negative) Urine Bilirubin 2+ H (Negative) Urine Mucus Rare H (None) /hpf 05/19/23 05/19/23 05/19/23 Range/Units 15:27 16:50 17:26 RBC (4.30-5.90) m/uL Hgb (13.0-17.5) gm/dL Hct (39.0-53.0) % Plt Count (150-450) k/uL Lymphocytes # (Manual) (1.0-4.8) k/uL PT 14.0 H (9.0-12.0) sec INR 1.4 H (<1.2) APTT 21.4 L (22.0-30.0) sec Sodium (137-145) mmol/L Potassium (3.5-5.1) mmol/L Chloride (98-107) mmol/L Carbon Dioxide (22-30) mmol/L BUN (9-20) mg/dL Creatinine (0.66-1.25) mg/dL Glucose (74-99) mg/dL Calcium (8.4-10.2) mg/dL Total Bilirubin (0.2-1.3) mg/dL Conjugated Bilirubin (0.0-0.3) mg/dL Unconjugated Bilirubin (0.0-1.1) mg/dL Delta Bilirubin (0.0-0.2) mg/dL GGT 95 H (15-73) U/L Alkaline Phosphatase (38-126) U/L Troponin I 0.039 H* (0.000-0.034) ng/mL Total Protein (6.3-8.2) g/dL Albumin (3.5-5.0) g/dL Urine Protein (Negative) Urine Bilirubin (Negative) Urine Mucus (None) /hpf Thrombosis Risk Factor Assmnt - Choose All That Apply Any of the Below Risk Factors Present?: Yes Each Factor Represents 1 point: Medical pt on bed rest Each Risk Factor Represents 2 Points: Patient confined to bed Other congenital or acquired thrombophilia - If yes, enter type in comment: No Thrombosis Risk Factor Assessment Total Risk Factor Score: 3 Thrombosis Risk Factor Assessment Level: Moderate Risk Assessment and Plan (1) Diabetes Current Visit: Yes Status: Acute Code(s): E11.9 - TYPE 2 DIABETES MELLITUS WITHOUT COMPLICATIONS SNOMED Code(s): 90162146 (2) Hyperbilirubinemia Current Visit: Yes Status: Acute Code(s): E80.6 - OTHER DISORDERS OF BILIRUBIN METABOLISM SNOMED Code(s): 73328725 (3) Hypokalemia Current Visit: Yes Status: Acute Code(s): E87.6 - HYPOKALEMIA SNOMED Code(s): 57104290 (4) Hyponatremia Current Visit: Yes Status: Acute Code(s): E87.1 - HYPO-OSMOLALITY AND HYPONATREMIA SNOMED Code(s): 71318666 (5) Multiple myeloma Current Visit: Yes Status: Chronic Priority: Medium Code(s): C90.00 - MULTIPLE MYELOMA NOT HAVING ACHIEVED REMISSION SNOMED Code(s): 475199949 (6) Depression Current Visit: No Status: Acute Code(s): F32.A - DEPRESSION, UNSPECIFIED SNOMED Code(s): 76347441 Plan: Hydration. Reconcile medications. Appropriate pain control. Sliding scale. Appreciate GI input. Check CBC and CMP in a.m. Prognosis is guarded secondary to history of multiple myeloma diabetes history of coronary disease.
[2023-05-20] MEDS: ASPIRIN 81 MG PO SCH (08:50)
[2023-05-20] MEDS: amLODIPine 10 MG TAB PO SCH (08:50)
[2023-05-20] MEDS: PARoxetine 20 MG TAB PO SCH (08:50)
[2023-05-20] MEDS: ACYCLOVIR 200 MG CAP PO SCH ×2 (08:50→21:26)
[2023-05-20] MEDS: PANTOPRAZOLE 40 MG TABLET PO SCH (08:50)
[2023-05-20] MEDS ORDERED: NON FORMULARY DRUG (Lenalidomide [Revlimid] 5 MG Capsule) PO SCH (09:00)
[2023-05-20] MEDS ORDERED: METOPROLOL TARTRATE 25 MG TAB PO SCH (09:00)
[2023-05-20 11:19] LABS: Glucose,Whole Blood 183 mg/dL (70-110)
--- NOTE | 2023-05-20 13:00 | P.NPCON ---
History of Present Illness - Reason for Consult acute renal failure - History of Present Illness Patient is a 57-year-old male who was admitted to the hospital with complaints of increased weakness. Patient denies any chest pains or shortness of breath. No history of kidney diseases. History of diarrhea on and off recently. No nausea or vomiting. No previous history of liver diseases. Total bilirubin was elevated at 5.4 and serum creatinine was 1.9 on admission. Previous creatinine was 0.9 on 10/16/2021. Patient has been maintained on Motrin prior to admission as well as during his hospitalization. Blood pressure was low with systolic as low as 86 mmHg yesterday. Patient states he has been voiding. Status post fluid bolus in the ER Chest x-ray shows right mid lung infiltrate. Currently maintained on antibiotics. Review of Systems As per HPI Past Medical History Past Medical History: Cancer, Diabetes Mellitus, Hypertension, Myocardial Infarction ([place]) Additional Past Medical History / Comment(s): gout, chronic back/hip pain, multiple myeloma Last Myocardial Infarction Date:: 02/04/21 History of Any Multi-Drug Resistant Organisms: None Reported Past Surgical History: Orthopedic Surgery Additional Past Surgical History / Comment(s): thymus gland removal, HIP SURGERY., lap band by romelt Past Anesthesia/Blood Transfusion Reactions: No Reported Reaction Past Psychological History: Depression Smoking Status: Former smoker Past Alcohol Use History: None Reported Past Drug Use History: None Reported Medications and Allergies Home Medications Medication Instructions Recorded Confirmed Type PARoxetine HCL [Paxil] 40 mg PO DAILY 04/29/14 05/19/23 History HYDROcodone/APAP 10-325MG [[place] 1 tab PO QID PRN 08/24/16 05/19/23 History 10-325] Acyclovir 400 mg PO BID 01/03/21 05/19/23 History Omeprazole 40 mg PO DAILY 02/04/21 05/19/23 History amLODIPine [Norvasc] 10 mg PO DAILY 03/14/21 05/19/23 History Ibuprofen [Motrin] 800 mg PO Q8H PRN 10/07/21 05/19/23 History Aspirin 81 mg PO DAILY 05/19/23 05/19/23 History Lenalidomide [Revlimid] 5 mg PO DAILY 05/19/23 05/19/23 History Metoprolol Tartrate [Lopressor] 12.5 mg PO BID 05/19/23 05/19/23 History traZODone HCL [Desyrel] 50 mg PO HS 05/19/23 05/19/23 History Allergies Allergy/AdvReac Type Severity Reaction Status Date / Time hydromorphone HCl AdvReac Hallucinati Verified 05/19/23 17:27 [From Dilaudid] ons meperidine HCl [From Demerol] AdvReac Hallucinati Verified 05/19/23 17:27 ons Physical Exam Vitals: Vital Signs Temp Pulse Pulse Pulse Resp BP BP 05/20/23 08:33 05/20/23 07:47 98 18 05/20/23 06:45 101.6 F H 98 18 114/72 05/20/23 00:53 100.5 F H 101 H 18 110/62 05/19/23 22:10 99.1 F 103 H 18 136/75 05/19/23 21:20 93 18 126/76 05/19/23 18:32 69 05/19/23 18:23 73 05/19/23 17:00 79 18 99/52 05/19/23 16:30 85 15 86/53 05/19/23 16:06 85 05/19/23 16:00 86 16 101/75 05/19/23 15:30 87 16 93/54 05/19/23 15:11 86 18 100/89 05/19/23 15:04 99.5 F 85 18 100/89 Pulse Ox 05/20/23 08:33 95 05/20/23 07:47 05/20/23 06:45 95 05/20/23 00:53 95 05/19/23 22:10 95 05/19/23 21:20 96 05/19/23 18:32 05/19/23 18:23 05/19/23 17:00 97 05/19/23 16:30 96 05/19/23 16:06 05/19/23 16:00 96 05/19/23 15:30 97 05/19/23 15:11 96 05/19/23 15:04 96 Intake and Output 05/19/23 05/20/23 05/20/23 22:59 06:59 14:59 Output Total 600 475 Balance -600 -475 Output: Urine 600 475 Other: Voiding Method Urinal Urinal # Voids 1 # Bowel Movements 1 Weight 158.757 kg Patient is awake, comfortable, no acute distress Examination of the heart S1 and S2 Examination of the lungs decreased breath sounds at the bases Abdomen is soft obese nontender Examination lower extremities shows no significant edema. SAW REPAIRER exam grossly intact Results - Lab Results Most recent lab results Calcium 8.1 mg/dL (8.4-10.2) L 05/19/23 15:27 Phosphorus 4.4 mg/dL (2.5-4.5) 05/19/23 16:16 Magnesium 1.7 mg/dL (1.6-2.3) 05/19/23 15:27 05/19/23 15:27 05/19/23 15:27 Assessment and Plan Assessment: 1. Acute kidney injury, nonoliguric ATN secondary to hypotension in the setting of use of NSAIDs. Status post IV fluids. UA shows 1+ protein no blood or cells. CT of the abdomen was negative for any obstructive uropathy. 2. 6 mm right renal calculus noted without obstruction 3. Right mid lung pneumonia 4. Hyperbilirubinemia with evidence of hepatomegaly on CT of the abdomen. No gallstones noted. Hepatitis serologies are negative 5. Hypokalemia associated with decreased intake as well as diarrhea 6. Hyponatremia, hypovolemic 7. Anemia rule out iron deficiency 8. History of multiple myeloma, details not known Plan: Resume IV fluids DC Motrin Repeat labs in a.m. Accurate I's and O's Avoid nephrotoxic agents Thank you for the consultation. We will continue to follow the patient with you during his hospitalization.
[2023-05-20 13:38] VITALS: BMI 50.2
[2023-05-20 14:41] LABS: Magnesium 1.7 mg/dL (1.5-2.4); Phosphorus 2.9 mg/dL (2.4-5.1)
--- NOTE | 2023-05-20 14:50 | P.CONS ---
History of Present Illness - Reason for Consult Consult date: 05/20/23 Hepatitis, elevated bili Requesting physician: Aldo Corcoran - Chief Complaint Weakness - History of Present Illness This is a pleasant 57-year-old male that presented to the emergency department yesterday with complaints of severe weakness, diaphoresis and discoloration of his skin and decreased appetite over the last few days. He has a past medical history including multiple myeloma and follows with Dr. Méndez, diabetes mellitus, hypertension, gout, chronic pain, and coronary artery disease status post NE. He states he had been feeling. Sweaty having nausea and vomiting and fever over the last 1 week duration. Gastroenterology was consulted for elevated bilirubin. Patient denies any history of liver disease. He denies any new medications. States that he used to be an alcoholic but he quit drinking 34 years ago. He was diagnosed with multiple myeloma about 4 years ago and started on Revlimid. He currently denies any abdominal pain, nausea or vomiting at this time. Still feeling overall weak and tired. Admitting labs WBC 4.3 hemoglobin 8.9 hematocrit 27 platelet count 100,018 or 1.4 sodium 1:30 potassium 2.9 BUN 41 creatinine 1.9, total bilirubin 5.4 conjugated bili 2.5 unconjugated bili 1.3 AST 23 ALT 23 alkaline phosphatase 157 lipase 92 hepatitis panel nonreactive. Imaging: CT chest abdomen and pelvis without contrast reports right lower lobe airspace consolidation concerning for acute infectious process. Colonic diverticulosis without acute inflammatory changes. Nonobstructing right renal calculi and other incidental findings. Gallbladder ultrasound reported hepatomegaly, normal appearance of gallbladder. Review of Systems REVIEW OF SYSTEMS: CARDIOPULMONARY: No chest pain or shortness of breath. Gastrointestinal: No abdominal pain. Decreased appetite with nausea and vomiting. . No hematemesis, coffee-ground emesis. No rectal bleeding, or melena. GENITOURINARY: No dysuria or hematuria. MUSCULOSKELETAL: Overall weakness and decreased range of motion. Chronic back pain. SKIN: No rashes. Jaundice. ENDOCRINE: No chills, fevers. No excessive weight gain or loss. No polydipsia or polyuria. PSYCHIATRIC: Unremarkable. NEUROLOGY: No change in mental status. Denies dizziness, headache. ENT: Vision unremarkable. CONSTITUTIONAL: No recent weight loss. Fever, chills, sweats. Past Medical History Past Medical History: Cancer, Diabetes Mellitus, Hypertension, Myocardial Infarction ([place]) Additional Past Medical History / Comment(s): gout, chronic back/hip pain, multiple myeloma Last Myocardial Infarction Date:: 02/04/21 History of Any Multi-Drug Resistant Organisms: None Reported Past Surgical History: Orthopedic Surgery Additional Past Surgical History / Comment(s): thymus gland removal, HIP SURGERY., lap band by boutt Past Anesthesia/Blood Transfusion Reactions: No Reported Reaction Past Psychological History: Depression Smoking Status: Former smoker Past Alcohol Use History: None Reported Past Drug Use History: None Reported Medications and Allergies Home Medications Medication Instructions Recorded Confirmed Type PARoxetine HCL [Paxil] 40 mg PO DAILY 04/29/14 05/19/23 History HYDROcodone/APAP 10-325MG [[place] 1 tab PO QID PRN 08/24/16 05/19/23 History 10-325] Acyclovir 400 mg PO BID 01/03/21 05/19/23 History Omeprazole 40 mg PO DAILY 02/04/21 05/19/23 History amLODIPine [Norvasc] 10 mg PO DAILY 03/14/21 05/19/23 History Ibuprofen [Motrin] 800 mg PO Q8H PRN 10/07/21 05/19/23 History Aspirin 81 mg PO DAILY 05/19/23 05/19/23 History Lenalidomide [Revlimid] 5 mg PO DAILY 05/19/23 05/19/23 History Metoprolol Tartrate [Lopressor] 12.5 mg PO BID 05/19/23 05/19/23 History traZODone HCL [Desyrel] 50 mg PO HS 05/19/23 05/19/23 History Allergies Allergy/AdvReac Type Severity Reaction Status Date / Time hydromorphone HCl AdvReac Hallucinati Verified 05/19/23 17:27 [From Dilaudid] ons meperidine HCl [From Demerol] AdvReac Hallucinati Verified 05/19/23 17:27 ons Physical Exam Vitals: Vital Signs Temp Pulse Pulse Pulse Resp BP BP 05/20/23 06:45 101.6 F H 98 18 114/72 05/20/23 00:53 100.5 F H 101 H 18 110/62 05/19/23 22:10 99.1 F 103 H 18 136/75 05/19/23 21:20 93 18 126/76 05/19/23 18:32 69 05/19/23 18:23 73 05/19/23 17:00 79 18 99/52 05/19/23 16:30 85 15 86/53 05/19/23 16:06 85 05/19/23 16:00 86 16 101/75 05/19/23 15:30 87 16 93/54 05/19/23 15:11 86 18 100/89 05/19/23 15:04 99.5 F 85 18 100/89 Pulse Ox 05/20/23 06:45 95 05/20/23 00:53 95 05/19/23 22:10 95 05/19/23 21:20 96 05/19/23 18:32 05/19/23 18:23 05/19/23 17:00 97 05/19/23 16:30 96 05/19/23 16:06 05/19/23 16:00 96 05/19/23 15:30 97 05/19/23 15:11 96 05/19/23 15:04 96 Intake and Output 05/19/23 05/20/23 05/20/23 22:59 06:59 14:59 Output Total 600 200 Balance -600 -200 Output: Urine 600 200 Other: Voiding Method Urinal Weight 158.757 kg General appearance: The patient is alert, oriented, appears in no acute distress. Obese. HET: Head is normocephalic and atraumatic. Conjunctiva pink. Sclera icteric. Neck: Supple without lymphadenopathy. Trachea midline. Heart: S1 S2. Regular rate and rhythm. Lungs: Clear to auscultation. Abdomen: Soft, left upper quadrant tenderness to palpation, nondistended with bowel sounds. No guarding or rigidity. Skin: No rashes. Jaundice. Extremities: Normal skin color and turgor. No pedal edema. Neurological: No focal deficits. Alert and oriented x3. Results CBC & Chem 7: 05/19/23 15:27 05/19/23 15:27 Labs: Abnormal Lab Results - Last 24 Hours (Table) 05/19/23 05/19/23 05/19/23 Range/Units 15:27 15:27 15:27 RBC 3.11 L (4.30-5.90) m/uL Hgb 8.9 L (13.0-17.5) gm/dL Hct 27.2 L (39.0-53.0) % Plt Count 100 L (150-450) k/uL Lymphocytes # (Manual) 0.39 L (1.0-4.8) k/uL PT (9.0-12.0) sec INR (<1.2) APTT (22.0-30.0) sec Sodium 130 L (137-145) mmol/L Potassium 2.9 L (3.5-5.1) mmol/L Chloride 97 L (98-107) mmol/L Carbon Dioxide 20 L (22-30) mmol/L BUN 41 H (9-20) mg/dL Creatinine 1.92 H (0.66-1.25) mg/dL Glucose 165 H (74-99) mg/dL Calcium 8.1 L (8.4-10.2) mg/dL Total Bilirubin 5.4 H (0.2-1.3) mg/dL Conjugated Bilirubin 2.5 H (0.0-0.3) mg/dL Unconjugated Bilirubin 1.3 H (0.0-1.1) mg/dL Delta Bilirubin 1.6 H (0.0-0.2) mg/dL GGT (15-73) U/L Alkaline Phosphatase 157 H (38-126) U/L Troponin I (0.000-0.034) ng/mL Total Protein 6.0 L (6.3-8.2) g/dL Albumin 2.7 L (3.5-5.0) g/dL Urine Protein 1+ H (Negative) Urine Bilirubin 2+ H (Negative) Urine Mucus Rare H (None) /hpf 05/19/23 05/19/23 05/19/23 Range/Units 15:27 16:50 17:26 RBC (4.30-5.90) m/uL Hgb (13.0-17.5) gm/dL Hct (39.0-53.0) % Plt Count (150-450) k/uL Lymphocytes # (Manual) (1.0-4.8) k/uL PT 14.0 H (9.0-12.0) sec INR 1.4 H (<1.2) APTT 21.4 L (22.0-30.0) sec Sodium (137-145) mmol/L Potassium (3.5-5.1) mmol/L Chloride (98-107) mmol/L Carbon Dioxide (22-30) mmol/L BUN (9-20) mg/dL Creatinine (0.66-1.25) mg/dL Glucose (74-99) mg/dL Calcium (8.4-10.2) mg/dL Total Bilirubin (0.2-1.3) mg/dL Conjugated Bilirubin (0.0-0.3) mg/dL Unconjugated Bilirubin (0.0-1.1) mg/dL Delta Bilirubin (0.0-0.2) mg/dL GGT 95 H (15-73) U/L Alkaline Phosphatase (38-126) U/L Troponin I 0.039 H* (0.000-0.034) ng/mL Total Protein (6.3-8.2) g/dL Albumin (3.5-5.0) g/dL Urine Protein (Negative) Urine Bilirubin (Negative) Urine Mucus (None) /hpf Assessment and Plan (1) Hyperbilirubinemia Narrative/Plan: 57-year-old with history of multiple myeloma presenting with overall weakness, nausea, vomiting decreased appetite fever and diaphoresis for 1 week. Patient noted with elevated bilirubin and 5.4 with AST 23 and ALT 23 alkaline phosphata se 157. Patient reporting no new medications, no history of liver disease, does have a remote history of alcohol abuse but quit drinking 34 years ago. Acute hepatitis panel nonreactive. Likely dealing with intra-hepatic cholestasis, likely medication induced. Patient diagnosed with multiple myeloma, it is common for immunologic therapy to induce intrahepatic cholestasis. Will await input from oncology. Current Visit: Yes Status: Acute Code(s): E80.6 - OTHER DISORDERS OF BILIRUBIN METABOLISM SNOMED Code(s): 18648893 (2) Acute kidney injury Current Visit: Yes Status: Acute Code(s): N17.9 - ACUTE KIDNEY FAILURE, UNSPECIFIED SNOMED Code(s): 91650384 (3) Hypokalemia Current Visit: Yes Status: Acute Code(s): E87.6 - HYPOKALEMIA SNOMED Code(s): 53268640 (4) Hyponatremia Current Visit: Yes Status: Acute Code(s): E87.1 - HYPO-OSMOLALITY AND HYPONATREMIA SNOMED Code(s): 62253136 (5) Multiple myeloma Current Visit: Yes Status: Chronic Priority: Medium Code(s): C90.00 - MULTIPLE MYELOMA NOT HAVING ACHIEVED REMISSION SNOMED Code(s): 115161713 Plan: 1. Continue symptomatic and supportive care 2. Daily CMP 3. Liver serologies ordered 4. Likely medication induced, await input and recommendations from oncology 5. Avoid hepatotoxic medications Thank you for this consultation, we will continue to follow. Dr. Dave Ricks I agree with the dictator's note, documented as a scribe by Leeann Garces.
[2023-05-20 14:58] LABS: ALT 17 U/L (10-49); AST 21 U/L (14-35); Albumin 2.7 d/dL (3.8-4.9); Albumin/Globulin Ratio 0.96 Ratio (1.60-3.17); Alkaline Phosphatase 142 U/L (41-126); Blood Urea Nitrogen 31.8 mg/dL (9.0-27.0); Calcium 8.5 mg/dL (8.7-10.3); Carbon Dioxide 20.8 mmol/L (21.6-31.8); Chloride 100 mmol/L (96-109); Globulin 2.8 d/dL (1.6-3.3); Glucose 121 mg/dL (70-110); Potassium 3.4 mmol/L (3.5-5.5); Sodium 134 mmol/L (135-145); Total Bilirubin 3.6 mg/dL (0.3-1.2); Total Protein 5.5 d/dL (6.2-8.2)
[2023-05-20 15:49] LABS: HCT 25.6 % (39.6-50.0); HGB 8.4 d/dL (12.0-15.0); MCH 28.4 pg (27.0-32.0); MCHC 32.8 d/dL (32.0-37.0); MCV 86.5 FL (80.0-97.0); Mean Platelet Volume 12.4 FL (9.5-12.2); NRBC Per 100 WBC 0 X 10*3/uL (0.00-0.01); Neutrophils % (M) 76 %; Platelet Count 87 X 10*3/uL (140-440); RBC 2.96 X 10*6/uL (4.40-5.60); RDW 13.4 % (11.5-14.5); WBC 3.16 X 10*3/uL (4.50-10.00)
[2023-05-20 15:53] LABS: Basophils # (M) 0.03 X 10*3/uL (0.00-0.10); Crenated RBC 2+; Eosinophils # (M) 0.06 X 10*3/uL (0.04-0.35); Lymphocytes # (M) 0.38 X 10*3/uL (0.90-5.00); Monocytes # (M) 0.28 X 10*3/uL (0.20-1.00)
[2023-05-20] MEDS: HYDROcodone/APAP 10-325MG 1 EACH TAB PO PRN (16:03)
[2023-05-20 16:19] LABS: % Iron Saturation 9.47 (15.00-50.00)
[2023-05-20 16:28] LABS: Glucose,Whole Blood 149 mg/dL (70-110)
[2023-05-20 16:33] LABS: Alpha Fetoprotein, Tumor Mkr <3.00 ng/mL (0.00-7.90)
--- NOTE | 2023-05-20 16:55 | P.CONS ---
History of Present Illness - Reason for Consult Consult date: 05/20/23 Hx multiple myeloma Requesting physician: Aldo Corcoran - Chief Complaint weakness - History of Present Illness Patient is a 57 year old male with a significant history of multiple myeloma. He is a patient of Dr. Méndez. Patient was referred to our clinic for anemia in 07/2020. 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 This level was highly suspicious for overt myeloma. The patient was therefore recommended bone marrow aspiration biopsy which was performed on 09/24/20. This confirmed multiple myeloma, with about 80% involvement of the bone marrow with lambda restricted plasma cells. Multiple myeloma FISH study was negative. Patient was recommended treatment with revlimid completed 6 cycles. Patient then started treatment with Velcade in 11/2020 and completed 6 cycles in March 2021. He continued on decadron and revlimid. The patient was referred to the [facility] to be evaluated for an auto SCT. Revlimid was held in 08/22 and the patient for possible stem cell harvest. He had bone marrow repeated as part of pre-op workup in 09/22 showing about a 5% population of lambda restricted plasma cells. Proceeded to transplant on 03/01/22. The patient was started on maintenance Revlimid in late 05/23. Patients last visit in clinic was in 11/2022. He was reported some increase in fatigue and shortness of breath on exertion. CBC showed hemoglobin of 8.6, WBC 1.62, and plt 68.5. The patient's new pancytopenia was discussed with him. Clinically it was felt to be most likely due to the lenalidomide effect. He was advised to hold the medication. Further workup was ordered to rule out other causes, including recurrent myeloma. However these were felt to be less likely clinically. He was instructed to f/u in 3 weeks but has not followed in clinic since. Patient has been somewhat non-complaint with treatment and followups throughout his treatment. At today's visit patient reports that he still taking Revlimid as directed. Patient presented to the ER for generalized weakness and shakiness. Patient reports symptoms have been progressing over the last 1 week. He also repeat reports associated nausea and dark urine. Denies vomiting and diarrhea. Denies shortness of breath and cough. Chest x-ray revealed focal posterior right midlobe lung pneumonia. Ultrasound of gallbladder revealed hepatomegaly and normal appearance of the gallbladder. CT chest abdomen and pelvis revealed right lower lobe airspace consolidation. Colonic diverticulosis without acute inflammatory changes. Nonobstructing right renal calculi. UA noted elevated bilirubin. Patient started on azithromycin and Rocephin for treatment of pneumonia. BNP elevated at 6540. Total bilirubin 5.4. ALP elevated at 142. AST/ALT within normal limits. Lipase normal. Hepatitis panel negative. GI consulted. T max 101.6. SPO2 95% on room air. CBC revealed WBC 4.3, hemoglobin 8.9, platelets 100,000. Review of Systems 10 point ROS is negative except as stated in the HPI Past Medical History Past Medical History: Cancer, Diabetes Mellitus, Hypertension, Myocardial Infarction ([place]) Additional Past Medical History / Comment(s): gout, chronic back/hip pain, multiple myeloma Last Myocardial Infarction Date:: 02/04/21 History of Any Multi-Drug Resistant Organisms: None Reported Past Surgical History: Orthopedic Surgery Additional Past Surgical History / Comment(s): thymus gland removal, HIP S URGERY., lap band by boutt Past Anesthesia/Blood Transfusion Reactions: No Reported Reaction Past Psychological History: Depression Smoking Status: Former smoker Past Alcohol Use History: None Reported Past Drug Use History: None Reported Medications and Allergies Home Medications Medication Instructions Recorded Confirmed Type PARoxetine HCL [Paxil] 40 mg PO DAILY 04/29/14 05/19/23 History HYDROcodone/APAP 10-325MG [[place]erson 1 tab PO QID PRN 08/24/16 05/19/23 History 10-325] Acyclovir 400 mg PO BID 01/03/21 05/19/23 History Omeprazole 40 mg PO DAILY 02/04/21 05/19/23 History amLODIPine [Norvasc] 10 mg PO DAILY 03/14/21 05/19/23 History Ibuprofen [Motrin] 800 mg PO Q8H PRN 10/07/21 05/19/23 History Aspirin 81 mg PO DAILY 05/19/23 05/19/23 History Lenalidomide [Revlimid] 5 mg PO DAILY 05/19/23 05/19/23 History Metoprolol Tartrate [Lopressor] 12.5 mg PO BID 05/19/23 05/19/23 History traZODone HCL [Desyrel] 50 mg PO HS 05/19/23 05/19/23 History Allergies Allergy/AdvReac Type Severity Reaction Status Date / Time hydromorphone HCl AdvReac Hallucinati Verified 05/19/23 17:27 [From Dilaudid] ons meperidine HCl [From Demerol] AdvReac Hallucinati Verified 05/19/23 17:27 ons Physical Exam Vitals: Vital Signs Temp Pulse Pulse Pulse Resp BP BP 05/20/23 08:33 05/20/23 06:45 101.6 F H 98 18 114/72 05/20/23 00:53 100.5 F H 101 H 18 110/62 05/19/23 22:10 99.1 F 103 H 18 136/75 05/19/23 21:20 93 18 126/76 05/19/23 18:32 69 05/19/23 18:23 73 05/19/23 17:00 79 18 99/52 05/19/23 16:30 85 15 86/53 05/19/23 16:06 85 05/19/23 16:00 86 16 101/75 05/19/23 15:30 87 16 93/54 05/19/23 15:11 86 18 100/89 05/19/23 15:04 99.5 F 85 18 100/89 Pulse Ox 05/20/23 08:33 95 05/20/23 06:45 95 05/20/23 00:53 95 05/19/23 22:10 95 05/19/23 21:20 96 05/19/23 18:32 05/19/23 18:23 05/19/23 17:00 97 05/19/23 16:30 96 05/19/23 16:06 05/19/23 16:00 96 05/19/23 15:30 97 05/19/23 15:11 96 05/19/23 15:04 96 Intake and Output 05/19/23 05/20/23 05/20/23 22:59 06:59 14:59 Output Total 600 475 Balance -600 -475 Output: Urine 600 475 Other: Voiding Method Urinal Weight 158.757 kg - Constitutional General appearance: no acute distress, obese - EENT no oral lesions/ulcerations, mucousa moist Eyes: EOMI, scleral icterus ENT: hearing grossly normal - Respiratory Respiratory: right: rales (RLL) - Cardiovascular Rhythm: regular Heart sounds: normal: S1, S2 Abnormal Heart Sounds: no systolic murmur, no diastolic murmur, no rub, no S3 Gallop, no S4 Gallop, no click, no other - Gastrointestinal General gastrointestinal: soft, no tenderness - Integumentary Integumentary: jaundiced - Neurologic Neurologic: CNII-XII intact - Musculoskeletal Musculoskeletal: generalized weakness - Psychiatric Psychiatric: A&O x's 3, appropriate affect, intact judgment & insight Results CBC & Chem 7: 05/20/23 05:58 05/20/23 05:58 Labs: Abnormal Lab Results - Last 24 Hours (Table) 05/19/23 05/19/23 05/19/23 Range/Units 15:27 15:27 15:27 RBC 3.11 L (4.30-5.90) m/uL Hgb 8.9 L (13.0-17.5) gm/dL Hct 27.2 L (39.0-53.0) % Plt Count 100 L (150-450) k/uL Lymphocytes # (Manual) 0.39 L (1.0-4.8) k/uL PT (9.0-12.0) sec INR (<1.2) APTT (22.0-30.0) sec Sodium 130 L (137-145) mmol/L Potassium 2.9 L (3.5-5.1) mmol/L Chloride 97 L (98-107) mmol/L Carbon Dioxide 20 L (22-30) mmol/L BUN 41 H (9-20) mg/dL Creatinine 1.92 H (0.66-1.25) mg/dL Glucose 165 H (74-99) mg/dL Calcium 8.1 L (8.4-10.2) mg/dL Total Bilirubin 5.4 H (0.2-1.3) mg/dL Conjugated Bilirubin 2.5 H (0.0-0.3) mg/dL Unconjugated Bilirubin 1.3 H (0.0-1.1) mg/dL Delta Bilirubin 1.6 H (0.0-0.2) mg/dL GGT (15-73) U/L Alkaline Phosphatase 157 H (38-126) U/L Troponin I (0.000-0.034) ng/mL Total Protein 6.0 L (6.3-8.2) g/dL Albumin 2.7 L (3.5-5.0) g/dL Urine Protein 1+ H (Negative) Urine Bilirubin 2+ H (Negative) Urine Mucus Rare H (None) /hpf 05/19/23 05/19/23 05/19/23 Range/Units 15:27 16:50 17:26 RBC (4.30-5.90) m/uL Hgb (13.0-17.5) gm/dL Hct (39.0-53.0) % Plt Count (150-450) k/uL Lymphocytes # (Manual) (1.0-4.8) k/uL PT 14.0 H (9.0-12.0) sec INR 1.4 H (<1.2) APTT 21.4 L (22.0-30.0) sec Sodium (137-145) mmol/L Potassium (3.5-5.1) mmol/L Chloride (98-107) mmol/L Carbon Dioxide (22-30) mmol/L BUN (9-20) mg/dL Creatinine (0.66-1.25) mg/dL Glucose (74-99) mg/dL Calcium (8.4-10.2) mg/dL Total Bilirubin (0.2-1.3) mg/dL Conjugated Bilirubin (0.0-0.3) mg/dL Unconjugated Bilirubin (0.0-1.1) mg/dL Delta Bilirubin (0.0-0.2) mg/dL GGT 95 H (15-73) U/L Alkaline Phosphatase (38-126) U/L Troponin I 0.039 H* (0.000-0.034) ng/mL Total Protein (6.3-8.2) g/dL Albumin (3.5-5.0) g/dL Urine Protein (Negative) Urine Bilirubin (Negative) Urine Mucus (None) /hpf Chest x-ray: report reviewed CT scan - abdomen: report reviewed CT scan - chest: report reviewed CT scan - pelvis: report reviewed US - abdomen: report reviewed Assessment and Plan (1) Anemia Current Visit: Yes Status: Acute Priority: High Code(s): D64.9 - ANEMIA, UNSPECIFIED SNOMED Code(s): 000070137 (2) Bacterial pneumonia Current Visit: Yes Status: Acute Priority: High Code(s): J15.9 - UNSPECIFIED BACTERIAL PNEUMONIA SNOMED Code(s): 00753361 (3) Multiple myeloma Current Visit: Yes Status: Chronic Priority: High Code(s): C90.00 - MULTIPLE MYELOMA NOT HAVING ACHIEVED REMISSION SNOMED Code(s): 839616458 Plan: Multiple myeloma: -History of multiple myeloma. He is a patient of Dr. Méndez. Patient was referred to our clinic for anemia in 07/2020. 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 This level was highly suspicious for overt myeloma. The patient was therefore recommended bone marrow aspiration biopsy which was performed on 09/24/20. This confirmed multiple myeloma, with about 80% involvement of the bone marrow with lambda restricted plasma cells. Multiple myeloma FISH study was negative. Patient was recommended treatment with revlimid and completed 6 cycles. Patient then started treatment with Velcade in 11/2020 and completed 6 cycles in March 2021. He continued on decadron and revlimid. The patient was referred to the [facility] to be evaluated for an auto SCT. He had bone marrow repeated as part of pre-op workup in 09/22 showing about a 5% population of lambda restricted plasma cells. Proceeded to transplant on 03/01/22. The patient was started on maintenance Revlimid in late 05/23. Patients last visit in clinic was in 11/2022. He was reported some increase in fatigue and shortness of breath on exertion. CBC showed hemoglobin of 8.6, WBC 1.62, and plt 68.5. The patient's new pancytopenia was discussed with him. Clinically it was felt to be most likely due to the revlimid effect. He was advised to hold the medication. Further workup was ordered to rule out other causes, including recurrent myeloma. However these were felt to be less likely clinically. He was instructed to f/u in 3 weeks but has not followed in clinic since. Patient has been somewhat non-complaint with treatment and followups throughout his treatment. At today's visit patient reports that he still taking Revlimid as directed. -Revlimid will held until patient recovers from acute illness -Will schedule f/u with Dr. Honey upon discharge Normocytic normochromic anemia: -History of multiple myeloma. Pancytopenia was noted in 11/2022 in clinic, with further workup ordered but patient was lost to follow up -Upon admission CBC revealed WBC 4.3, hemoglobin 8.9, platelets 100,000. Today WBC 3.1, hgb 8.4, and platelets 87,000. -Anemia likely multifactorial with history of MM on treatment with revlimid superimposed by acute infectious/inflammatory process -UA noted elevated bilirubin. Total bilirubin 5.4. Will order hemolysis workup. -ALP elevated at 142. AST/ALT within normal limits. Hepatitis panel negative. -Iron studies reveal iron 16 and iron saturation 9.4%. Parenteral iron held due to acute infectious process. Will f/u outpt once recovered for repeat studies -Will continue to monitor counts. Please transfuse for hemoglobin less than 7 Pneumonia: -CXR and CT revealed RLL pneumonia -Patient started on azithromycin and Rocephin -Defer to IM attests: I have performed H&P and developed impression and plan of care for patient, discussed with dictator. I agree with dictated note, documented as a scribe
[2023-05-20] MEDS: AZITHROMYCIN 500 MG in SODIUM CHLORIDE 0.9% 250 ML IVPB SCH (17:20)
[2023-05-20 20:51] LABS: Glucose,Whole Blood 154 mg/dL (70-110)
[2023-05-20] MEDS ORDERED: traZODone HCL 50 MG TAB PO SCH (21:00)
[2023-05-20] MEDS: SODIUM CHLORIDE 0.9% 1,000 ML IV SCH ×2 (21:27)
[2023-05-21] MEDS: SODIUM CHLORIDE 0.9% 1,000 ML IV SCH ×3 (05:40→18:12)
[2023-05-21 05:57] LABS: Glucose,Whole Blood 164 mg/dL (70-110)
[2023-05-21] MEDS: PANTOPRAZOLE 40 MG TABLET PO SCH (06:42)
--- NOTE | 2023-05-21 09:05 | P.PN ---
Subjective Progress Note Date: 05/21/23 Principal diagnosis: Jaundice This is a 57-year-old male who presented to the hospital with complaints of significant weakness. He also showed significant jaundice. He does have a history of diabetes from when he was being treated for multiple myeloma. However he lost a significant amount of weight and has been diet controlled. Patient has been seen and evaluated by GI, they believe patient is dealing with intrahepatic cholestasis. Blood sugars slightly elevated yesterday and they have stabilized overnight and today. Hematology has also been consulted. Lab work from today is not resulted at time of dictation. This morning patient is seen laying in bed comfortably with no new complaints. Objective - Vital Signs Vital signs: Vital Signs Temp 98.4 F 05/21/23 06:30 Pulse 87 05/21/23 06:30 Resp 19 05/21/23 01:27 BP 115/74 05/21/23 06:30 Pulse Ox 98 05/21/23 08:16 FiO2 Intake & Output 05/20/23 05/21/23 05/21/23 18:59 06:59 18:59 Output Total 1275 1100 Balance -1275 -1100 Weight 158.757 kg Output: Urine 1275 1100 Other: Voiding Method Urinal # Voids 1 # Bowel Movements 1 - Constitutional General appearance: Present: cooperative, no acute distress - EENT Eyes: Present: PERRLA - Neck Neck: Present: normal ROM. Absent: lymphadenopathy, rigidity - Respiratory Respiratory: bilateral: diminished - Cardiovascular Rhythm: regular Heart sounds: normal: S1, S2 - Gastrointestinal General gastrointestinal: Present: soft. Absent: tenderness - Integumentary Integumentary: Present: jaundiced - Psychiatric Psychiatric: Present: A&O x's 3, appropriate affect, intact judgment & insight - Labs CBC & Chem 7: 05/20/23 05:58 05/20/23 05:58 Labs: Abnormal Lab Results - Last 24 Hours (Table) 05/20/23 05/20/23 05/20/23 Range/Units 05:58 05:58 05:58 WBC 3.16 L (4.50-10.00) X 10*3/uL RBC 2.96 L (4.40-5.60) X 10*6/uL Hgb 8.4 L (12.0-15.0) d/dL Hct 25.6 L (39.6-50.0) % Plt Count 87 L (140-440) X 10*3/uL MPV 12.4 H (9.5-12.2) FL Lymphocytes # (Manual) 0.38 L (0.90-5.00) X 10*3/uL Crenated Cell 2+ A Haptoglobin (31.2-198.0) mg/dL Sodium 134 L (135-145) mmol/L Potassium 3.4 L (3.5-5.5) mmol/L Carbon Dioxide 20.8 L (21.6-31.8) mmol/L Anion Gap 13.20 H (4.00-12.00) mmol/L BUN 31.8 H (9.0-27.0) mg/dL Est GFR (CKD-EPI) 53 L (>=60) BUN/Creatinine Ratio 21.20 H (12.00-20.00) Ratio Glucose 121 H (70-110) mg/dL POC Glucose (mg/dL) (70-110) mg/dL Hemoglobin A1c (<=6.0) % Calcium 8.5 L (8.7-10.3) mg/dL Iron (65-175) UG/DL TIBC (228-460) UG/DL % Saturation (15.00-50.00) Transferrin (204.0-354.0) mg/dL Ferritin (22.0-322.0) ng/mL Total Bilirubin 3.6 H (0.3-1.2) mg/dL Alkaline Phosphatase 142 H (41-126) U/L Lactate Dehydrogenase 85 L (120-246) U/L Total Protein 5.5 L (6.2-8.2) d/dL Albumin 2.7 L (3.8-4.9) d/dL Albumin/Globulin Ratio 0.96 L (1.60-3.17) Ratio Uqifu-3-Lqummpltlrt (99.0-242.0) mg/dL 05/20/23 05/20/23 05/20/23 Range/Units 05:58 05:58 10:58 WBC (4.50-10.00) X 10*3/uL RBC (4.40-5.60) X 10*6/uL Hgb (12.0-15.0) d/dL Hct (39.6-50.0) % Plt Count (140-440) X 10*3/uL MPV (9.5-12.2) FL Lymphocytes # (Manual) (0.90-5.00) X 10*3/uL Crenated Cell Haptoglobin 365.0 H (31.2-198.0) mg/dL Sodium (135-145) mmol/L Potassium (3.5-5.5) mmol/L Carbon Dioxide (21.6-31.8) mmol/L Anion Gap (4.00-12.00) mmol/L BUN (9.0-27.0) mg/dL Est GFR (CKD-EPI) (>=60) BUN/Creatinine Ratio (12.00-20.00) Ratio Glucose (70-110) mg/dL POC Glucose (mg/dL) (70-110) mg/dL Hemoglobin A1c 6.2 H (<=6.0) % Calcium (8.7-10.3) mg/dL Iron (65-175) UG/DL TIBC (228-460) UG/DL % Saturation (15.00-50.00) Transferrin (204.0-354.0) mg/dL Ferritin 782.0 H (22.0-322.0) ng/mL Total Bilirubin (0.3-1.2) mg/dL Alkaline Phosphatase (41-126) U/L Lactate Dehydrogenase (120-246) U/L Total Protein (6.2-8.2) d/dL Albumin (3.8-4.9) d/dL Albumin/Globulin Ratio (1.60-3.17) Ratio Duhmc-8-Wzekdlyncbz (99.0-242.0) mg/dL 05/20/23 05/20/23 05/20/23 Range/Units 10:58 10:58 11:18 WBC (4.50-10.00) X 10*3/uL RBC (4.40-5.60) X 10*6/uL Hgb (12.0-15.0) d/dL Hct (39.6-50.0) % Plt Count (140-440) X 10*3/uL MPV (9.5-12.2) FL Lymphocytes # (Manual) (0.90-5.00) X 10*3/uL Crenated Cell Haptoglobin (31.2-198.0) mg/dL Sodium (135-145) mmol/L Potassium (3.5-5.5) mmol/L Carbon Dioxide (21.6-31.8) mmol/L Anion Gap (4.00-12.00) mmol/L BUN (9.0-27.0) mg/dL Est GFR (CKD-EPI) (>=60) BUN/Creatinine Ratio (12.00-20.00) Ratio Glucose (70-110) mg/dL POC Glucose (mg/dL) 183 H (70-110) mg/dL Hemoglobin A1c (<=6.0) % Calcium (8.7-10.3) mg/dL Iron 16 L (65-175) UG/DL TIBC 169 L (228-460) UG/DL % Saturation 9.47 L (15.00-50.00) Transferrin 121.0 L (204.0-354.0) mg/dL Ferritin (22.0-322.0) ng/mL Total Bilirubin (0.3-1.2) mg/dL Alkaline Phosphatase (41-126) U/L Lactate Dehydrogenase (120-246) U/L Total Protein (6.2-8.2) d/dL Albumin (3.8-4.9) d/dL Albumin/Globulin Ratio (1.60-3.17) Ratio Adsuq-6-Jzyylgkudwl 350.0 H (99.0-242.0) mg/dL 05/20/23 05/20/23 05/21/23 Range/Units 16:27 20:49 05:55 WBC (4.50-10.00) X 10*3/uL RBC (4.40-5.60) X 10*6/uL Hgb (12.0-15.0) d/dL Hct (39.6-50.0) % Plt Count (140-440) X 10*3/uL MPV (9.5-12.2) FL Lymphocytes # (Manual) (0.90-5.00) X 10*3/uL Crenated Cell Haptoglobin (31.2-198.0) mg/dL Sodium (135-145) mmol/L Potassium (3.5-5.5) mmol/L Carbon Dioxide (21.6-31.8) mmol/L Anion Gap (4.00-12.00) mmol/L BUN (9.0-27.0) mg/dL Est GFR (CKD-EPI) (>=60) BUN/Creatinine Ratio (12.00-20.00) Ratio Glucose (70-110) mg/dL POC Glucose (mg/dL) 149 H 154 H 164 H (70-110) mg/dL Hemoglobin A1c (<=6.0) % Calcium (8.7-10.3) mg/dL Iron (65-175) UG/DL TIBC (228-460) UG/DL % Saturation (15.00-50.00) Transferrin (204.0-354.0) mg/dL Ferritin (22.0-322.0) ng/mL Total Bilirubin (0.3-1.2) mg/dL Alkaline Phosphatase (41-126) U/L Lactate Dehydrogenase (120-246) U/L Total Protein (6.2-8.2) d/dL Albumin (3.8-4.9) d/dL Albumin/Globulin Ratio (1.60-3.17) Ratio Rwyyj-6-Aqtgmgiirwl (99.0-242.0) mg/dL Microbiology - Last 24 Hours (Table) 05/19/23 15:15 Blood Culture Gram Stain - Preliminary Blood 05/19/23 15:30 Blood Culture Gram Stain - Preliminary Blood Assessment and Plan (1) Diabetes Current Visit: Yes Status: Acute Code(s): E11.9 - TYPE 2 DIABETES MELLITUS WITHOUT COMPLICATIONS SNOMED Code(s): 34895398 (2) Hyperbilirubinemia Current Visit: Yes Status: Acute Code(s): E80.6 - OTHER DISORDERS OF BILIRUBIN METABOLISM SNOMED Code(s): 62677988 (3) Hypokalemia Current Visit: Yes Status: Acute Code(s): E87.6 - HYPOKALEMIA SNOMED Code(s): 83664078 (4) Hyponatremia Current Visit: Yes Status: Acute Code(s): E87.1 - HYPO-OSMOLALITY AND HYPONATREMIA SNOMED Code(s): 85918604 (5) Multiple myeloma Current Visit: Yes Status: Chronic Priority: High Code(s): C90.00 - MULTIPLE MYELOMA NOT HAVING ACHIEVED REMISSION SNOMED Code(s): 563284528 (6) Depression Current Visit: No Status: Acute Code(s): F32.A - DEPRESSION, UNSPECIFIED SNOMED Code(s): 65270149 Plan: Appreciate multiple consultants. Await lab results from today. Check CBC and CMP in the morning. Patient seen and evaluated by nurse practitioner, physician in agreement with plan
[2023-05-21] MEDS: amLODIPine 10 MG TAB PO SCH (10:04)
[2023-05-21] MEDS: METOPROLOL TARTRATE 12.5 MG TAB PO SCH ×2 (10:04→21:19)
[2023-05-21] MEDS: PARoxetine 20 MG TAB PO SCH (10:04)
[2023-05-21] MEDS: ACYCLOVIR 200 MG CAP PO SCH ×2 (10:10→21:19)
[2023-05-21] MEDS: ASPIRIN 81 MG PO SCH (10:16)
[2023-05-21 11:03] LABS: Glucose,Whole Blood 139 mg/dL (70-110)
[2023-05-21 11:06] LABS: Reticulocyte % 1.07
--- NOTE | 2023-05-21 13:06 | P.PN ---
Subjective Patient is seen for follow-up for acute kidney injury prerenal and associated with underlying infection and pneumonia. Currently improving with IV hydration. Overall patient states he is feeling better. Labs are pending from today Patient reports good urine output. Objective - Vital Signs Vital signs: Vital Signs Temp 98.4 F 05/21/23 06:30 Pulse 87 05/21/23 06:30 Resp 19 05/21/23 01:27 BP 115/74 05/21/23 06:30 Pulse Ox 98 05/21/23 08:16 FiO2 Intake & Output 05/20/23 05/21/23 05/21/23 18:59 06:59 18:59 Output Total 1275 1100 Balance -1275 -1100 Weight 158.757 kg 158.757 kg Output: Urine 1275 1100 Other: Voiding Method Urinal Urinal # Voids 1 # Bowel Movements 1 - Exam Patient is awake, comfortable, no acute distress Examination of the heart S1 and S2 Examination of the lungs decreased breath sounds at the bases Abdomen is soft obese nontender Examination lower extremities shows no significant edema. THORACIC MEDICINE PHYSICIAN exam grossly intact - Labs CBC & Chem 7: 05/20/23 05:58 05/20/23 05:58 Labs: Abnormal Lab Results - Last 24 Hours (Table) 05/20/23 05/20/23 05/20/23 Range/Units 05:58 05:58 05:58 WBC 3.16 L (4.50-10.00) X 10*3/uL RBC 2.96 L (4.40-5.60) X 10*6/uL Hgb 8.4 L (12.0-15.0) d/dL Hct 25.6 L (39.6-50.0) % Plt Count 87 L (140-440) X 10*3/uL MPV 12.4 H (9.5-12.2) FL Lymphocytes # (Manual) 0.38 L (0.90-5.00) X 10*3/uL Crenated Cell 2+ A Haptoglobin (31.2-198.0) mg/dL Sodium 134 L (135-145) mmol/L Potassium 3.4 L (3.5-5.5) mmol/L Carbon Dioxide 20.8 L (21.6-31.8) mmol/L Anion Gap 13.20 H (4.00-12.00) mmol/L BUN 31.8 H (9.0-27.0) mg/dL Est GFR (CKD-EPI) 53 L (>=60) BUN/Creatinine Ratio 21.20 H (12.00-20.00) Ratio Glucose 121 H (70-110) mg/dL POC Glucose (mg/dL) (70-110) mg/dL Hemoglobin A1c (<=6.0) % Calcium 8.5 L (8.7-10.3) mg/dL Iron (65-175) UG/DL TIBC (228-460) UG/DL % Saturation (15.00-50.00) Transferrin (204.0-354.0) mg/dL Ferritin (22.0-322.0) ng/mL Total Bilirubin 3.6 H (0.3-1.2) mg/dL Alkaline Phosphatase 142 H (41-126) U/L Lactate Dehydrogenase 85 L (120-246) U/L Total Protein 5.5 L (6.2-8.2) d/dL Albumin 2.7 L (3.8-4.9) d/dL Albumin/Globulin Ratio 0.96 L (1.60-3.17) Ratio Gpaev-0-Eehbzmhahln (99.0-242.0) mg/dL 05/20/23 05/20/23 05/20/23 Range/Units 05:58 05:58 10:58 WBC (4.50-10.00) X 10*3/uL RBC (4.40-5.60) X 10*6/uL Hgb (12.0-15.0) d/dL Hct (39.6-50.0) % Plt Count (140-440) X 10*3/uL MPV (9.5-12.2) FL Lymphocytes # (Manual) (0.90-5.00) X 10*3/uL Crenated Cell Haptoglobin 365.0 H (31.2-198.0) mg/dL Sodium (135-145) mmol/L Potassium (3.5-5.5) mmol/L Carbon Dioxide (21.6-31.8) mmol/L Anion Gap (4.00-12.00) mmol/L BUN (9.0-27.0) mg/dL Est GFR (CKD-EPI) (>=60) BUN/Creatinine Ratio (12.00-20.00) Ratio Glucose (70-110) mg/dL POC Glucose (mg/dL) (70-110) mg/dL Hemoglobin A1c 6.2 H (<=6.0) % Calcium (8.7-10.3) mg/dL Iron (65-175) UG/DL TIBC (228-460) UG/DL % Saturation (15.00-50.00) Transferrin (204.0-354.0) mg/dL Ferritin 782.0 H (22.0-322.0) ng/mL Total Bilirubin (0.3-1.2) mg/dL Alkaline Phosphatase (41-126) U/L Lactate Dehydrogenase (120-246) U/L Total Protein (6.2-8.2) d/dL Albumin (3.8-4.9) d/dL Albumin/Globulin Ratio (1.60-3.17) Ratio Jrrgd-8-Mhddezdcwhi (99.0-242.0) mg/dL 05/20/23 05/20/23 05/20/23 Range/Units 10:58 10:58 16:27 WBC (4.50-10.00) X 10*3/uL RBC (4.40-5.60) X 10*6/uL Hgb (12.0-15.0) d/dL Hct (39.6-50.0) % Plt Count (140-440) X 10*3/uL MPV (9.5-12.2) FL Lymphocytes # (Manual) (0.90-5.00) X 10*3/uL Crenated Cell Haptoglobin (31.2-198.0) mg/dL Sodium (135-145) mmol/L Potassium (3.5-5.5) mmol/L Carbon Dioxide (21.6-31.8) mmol/L Anion Gap (4.00-12.00) mmol/L BUN (9.0-27.0) mg/dL Est GFR (CKD-EPI) (>=60) BUN/Creatinine Ratio (12.00-20.00) Ratio Glucose (70-110) mg/dL POC Glucose (mg/dL) 149 H (70-110) mg/dL Hemoglobin A1c (<=6.0) % Calcium (8.7-10.3) mg/dL Iron 16 L (65-175) UG/DL TIBC 169 L (228-460) UG/DL % Saturation 9.47 L (15.00-50.00) Transferrin 121.0 L (204.0-354.0) mg/dL Ferritin (22.0-322.0) ng/mL Total Bilirubin (0.3-1.2) mg/dL Alkaline Phosphatase (41-126) U/L Lactate Dehydrogenase (120-246) U/L Total Protein (6.2-8.2) d/dL Albumin (3.8-4.9) d/dL Albumin/Globulin Ratio (1.60-3.17) Ratio Kgesa-3-Gizugjnrmon 350.0 H (99.0-242.0) mg/dL 05/20/23 05/21/23 05/21/23 Range/Units 20:49 05:55 11:02 WBC (4.50-10.00) X 10*3/uL RBC (4.40-5.60) X 10*6/uL Hgb (12.0-15.0) d/dL Hct (39.6-50.0) % Plt Count (140-440) X 10*3/uL MPV (9.5-12.2) FL Lymphocytes # (Manual) (0.90-5.00) X 10*3/uL Crenated Cell Haptoglobin (31.2-198.0) mg/dL Sodium (135-145) mmol/L Potassium (3.5-5.5) mmol/L Carbon Dioxide (21.6-31.8) mmol/L Anion Gap (4.00-12.00) mmol/L BUN (9.0-27.0) mg/dL Est GFR (CKD-EPI) (>=60) BUN/Creatinine Ratio (12.00-20.00) Ratio Glucose (70-110) mg/dL POC Glucose (mg/dL) 154 H 164 H 139 H (70-110) mg/dL Hemoglobin A1c (<=6.0) % Calcium (8.7-10.3) mg/dL Iron (65-175) UG/DL TIBC (228-460) UG/DL % Saturation (15.00-50.00) Transferrin (204.0-354.0) mg/dL Ferritin (22.0-322.0) ng/mL Total Bilirubin (0.3-1.2) mg/dL Alkaline Phosphatase (41-126) U/L Lactate Dehydrogenase (120-246) U/L Total Protein (6.2-8.2) d/dL Albumin (3.8-4.9) d/dL Albumin/Globulin Ratio (1.60-3.17) Ratio Ujuuw-8-Gsgekaqaybe (99.0-242.0) mg/dL Microbiology - Last 24 Hours (Table) 05/19/23 15:15 Blood Culture Gram Stain - Preliminary Blood 05/19/23 15:30 Blood Culture Gram Stain - Preliminary Blood Assessment and Plan Assessment: 1. Acute kidney injury, nonoliguric ATN secondary to hypotension in the setting of use of NSAIDs. Status post IV fluids. UA shows 1+ protein no blood or cells. CT of the abdomen was negative for any obstructive uropathy. 2. 6 mm right renal calculus noted without obstruction 3. Right mid lung pneumonia 4. Hyperbilirubinemia with evidence of hepatomegaly on CT of the abdomen. No gallstones noted. Hepatitis serologies are negative 5. Hypokalemia associated with decreased intake as well as diarrhea 6. Hyponatremia, hypovolemic, improved 7. Anemia with iron deficiency 8. History of multiple myeloma, details not known Plan: Continue IV fluids Follow up on labs from today Avoid NSAIDs IV iron Repeat labs in a.m. Accurate I's and O's Avoid nephrotoxic agents
[2023-05-21 13:29] LABS: HCT 25.5 % (39.6-50.0); MCH 27.9 pg (27.0-32.0); MCHC 31.4 d/dL (32.0-37.0); MCV 88.9 FL (80.0-97.0); Mean Platelet Volume 13.5 FL (9.5-12.2); NRBC Per 100 WBC 0 X 10*3/uL (0.00-0.01); Platelet Count 80 X 10*3/uL (140-440); RBC 2.87 X 10*6/uL (4.40-5.60); RDW 13.6 % (11.5-14.5); WBC 3.92 X 10*3/uL (4.50-10.00)
[2023-05-21 13:40] LABS: ALT 16 U/L (10-49); AST 23 U/L (14-35); Albumin 2.5 d/dL (3.8-4.9); Albumin/Globulin Ratio 0.86 Ratio (1.60-3.17); Alkaline Phosphatase 180 U/L (41-126); BUN/Creat Ratio 21.82 Ratio (12.00-20.00); Calcium 8.3 mg/dL (8.7-10.3); Carbon Dioxide 22.8 mmol/L (21.6-31.8); Chloride 102 mmol/L (96-109); Globulin 2.9 d/dL (1.6-3.3); Glucose 167 mg/dL (70-110); Potassium 3.1 mmol/L (3.5-5.5); Sodium 136 mmol/L (135-145); Total Bilirubin 1.8 mg/dL (0.3-1.2); Total Protein 5.4 d/dL (6.2-8.2)
[2023-05-21 13:57] LABS: INR 1.2 (<1.2); Partial Thromboplastin Time 24.8 sec (22.0-30.0)
--- NOTE | 2023-05-21 14:33 | P.PN ---
Subjective Progress Note Date: 05/21/23 Principal diagnosis: Hyperbilirubinemia This is a pleasant 57-year-old male that presented to the emergency department yesterday with complaints of severe weakness, diaphoresis and discoloration of his skin and decreased appetite over the last few days. He has a past medical history including multiple myeloma and follows with Dr. Méndez, diabetes mellitus, hypertension, gout, chronic pain, and coronary artery disease status post DE. He states he had been feeling. Sweaty having nausea and vomiting and fever over the last 1 week duration. Gastroenterology was consulted for elevated bilirubin. Patient denies any history of liver disease. He denies any new medications. States that he used to be an alcoholic but he quit drinking 34 years ago. He was diagnosed with multiple myeloma about 4 years ago and started on Revlimid. He currently denies any abdominal pain, nausea or vomiting at this time. Still feeling overall weak and tired. Admitting labs WBC 4.3 hemoglobin 8.9 hematocrit 27 platelet count 100,018 or 1.4 sodium 1:30 potassium 2.9 BUN 41 creatinine 1.9, total bilirubin 5.4 conjugated bili 2.5 unconjugated bili 1.3 AST 23 ALT 23 alkaline phosphatase 157 lipase 92 hepatitis panel nonreactive. Imaging: CT chest abdomen and pelvis without contrast reports right lower lobe airspace consolidation concerning for acute infectious process. Colonic diver ticulosis without acute inflammatory changes. Nonobstructing right renal calculi and other incidental findings. Gallbladder ultrasound reported hepatomegaly, normal appearance of gallbladder. 05/21/2023 Patient seen and examined today as a follow-up. He is up in a bedside chair. He states he is feeling better today. He was seen by oncology reported diagnosed with multiple myeloma about 3 years ago, last seen November of this year. Patient was supposed to follow-up in 3 weeks however had not. They discontinued his Revlimid for acute infectious process. Today's labs WBC 3.9 hemoglobin 8.0 platelet count 80,000 sodium 136 potassium 3.1 total bilirubin 1.8 AST 23 ALT 16 alkaline phosphatase 180 liver serologies negative to date. Objective - Vital Signs Vital signs: Vital Signs Temp 98.4 F 05/21/23 06:30 Pulse 87 05/21/23 06:30 Resp 19 05/21/23 01:27 BP 115/74 05/21/23 06:30 Pulse Ox 98 05/21/23 08:16 FiO2 Intake & Output 05/20/23 05/21/23 05/21/23 18:59 06:59 18:59 Output Total 1275 1100 Balance -1275 -1100 Weight 158.757 kg Output: Urine 1275 1100 Other: Voiding Method Urinal # Voids 1 # Bowel Movements 1 - Exam General appearance: The patient is alert, oriented, appears in no acute distress. HET: Head is normocephalic and atraumatic. Conjunctiva pink. Sclera anicteric. Neck: Supple without lymphadenopathy. Abdomen: Soft, nontender, nondistended with bowel sounds. No guarding or rig idity. Extremities: Normal skin color and turgor. No pedal edema Skin: No rashes, jaundice Neurological: No focal deficits. Alert and oriented. - Labs CBC & Chem 7: 05/21/23 07:32 05/21/23 07:32 Labs: Abnormal Lab Results - Last 24 Hours (Table) 05/20/23 05/20/23 05/20/23 Range/Units 05:58 05:58 05:58 WBC 3.16 L (4.50-10.00) X 10*3/uL RBC 2.96 L (4.40-5.60) X 10*6/uL Hgb 8.4 L (12.0-15.0) d/dL Hct 25.6 L (39.6-50.0) % Plt Count 87 L (140-440) X 10*3/uL MPV 12.4 H (9.5-12.2) FL Lymphocytes # (Manual) 0.38 L (0.90-5.00) X 10*3/uL Crenated Cell 2+ A Haptoglobin (31.2-198.0) mg/dL Sodium 134 L (135-145) mmol/L Potassium 3.4 L (3.5-5.5) mmol/L Carbon Dioxide 20.8 L (21.6-31.8) mmol/L Anion Gap 13.20 H (4.00-12.00) mmol/L BUN 31.8 H (9.0-27.0) mg/dL Est GFR (CKD-EPI) 53 L (>=60) BUN/Creatinine Ratio 21.20 H (12.00-20.00) Ratio Glucose 121 H (70-110) mg/dL POC Glucose (mg/dL) (70-110) mg/dL Hemoglobin A1c (<=6.0) % Calcium 8.5 L (8.7-10.3) mg/dL Iron (65-175) UG/DL TIBC (228-460) UG/DL % Saturation (15.00-50.00) Transferrin (204.0-354.0) mg/dL Ferritin (22.0-322.0) ng/mL Total Bilirubin 3.6 H (0.3-1.2) mg/dL Alkaline Phosphatase 142 H (41-126) U/L Lactate Dehydrogenase 85 L (120-246) U/L Total Protein 5.5 L (6.2-8.2) d/dL Albumin 2.7 L (3.8-4.9) d/dL Albumin/Globulin Ratio 0.96 L (1.60-3.17) Ratio Stixq-7-Wtpvbmudnmv (99.0-242.0) mg/dL 05/20/23 05/20/23 05/20/23 Range/Units 05:58 05:58 10:58 WBC (4.50-10.00) X 10*3/uL RBC (4.40-5.60) X 10*6/uL Hgb (12.0-15.0) d/dL Hct (39.6-50.0) % Plt Count (140-440) X 10*3/uL MPV (9.5-12.2) FL Lymphocytes # (Manual) (0.90-5.00) X 10*3/uL Crenated Cell Haptoglobin 365.0 H (31.2-198.0) mg/dL Sodium (135-145) mmol/L Potassium (3.5-5.5) mmol/L Carbon Dioxide (21.6-31.8) mmol/L Anion Gap (4.00-12.00) mmol/L BUN (9.0-27.0) mg/dL Est GFR (CKD-EPI) (>=60) BUN/Creatinine Ratio (12.00-20.00) Ratio Glucose (70-110) mg/dL POC Glucose (mg/dL) (70-110) mg/dL Hemoglobin A1c 6.2 H (<=6.0) % Calcium (8.7-10.3) mg/dL Iron (65-175) UG/DL TIBC (228-460) UG/DL % Saturation (15.00-50.00) Transferrin (204.0-354.0) mg/dL Ferritin 782.0 H (22.0-322.0) ng/mL Total Bilirubin (0.3-1.2) mg/dL Alkaline Phosphatase (41-126) U/L Lactate Dehydrogenase (120-246) U/L Total Protein (6.2-8.2) d/dL Albumin (3.8-4.9) d/dL Albumin/Globulin Ratio (1.60-3.17) Ratio Zzcqc-8-Kqpefydpbxd (99.0-242.0) mg/dL 05/20/23 05/20/23 05/20/23 Range/Units 10:58 10:58 11:18 WBC (4.50-10.00) X 10*3/uL RBC (4.40-5.60) X 10*6/uL Hgb (12.0-15.0) d/dL Hct (39.6-50.0) % Plt Count (140-440) X 10*3/uL MPV (9.5-12.2) FL Lymphocytes # (Manual) (0.90-5.00) X 10*3/uL Crenated Cell Haptoglobin (31.2-198.0) mg/dL Sodium (135-145) mmol/L Potassium (3.5-5.5) mmol/L Carbon Dioxide (21.6-31.8) mmol/L Anion Gap (4.00-12.00) mmol/L BUN (9.0-27.0) mg/dL Est GFR (CKD-EPI) (>=60) BUN/Creatinine Ratio (12.00-20.00) Ratio Glucose (70-110) mg/dL POC Glucose (mg/dL) 183 H (70-110) mg/dL Hemoglobin A1c (<=6.0) % Calcium (8.7-10.3) mg/dL Iron 16 L (65-175) UG/DL TIBC 169 L (228-460) UG/DL % Saturation 9.47 L (15.00-50.00) Transferrin 121.0 L (204.0-354.0) mg/dL Ferritin (22.0-322.0) ng/mL Total Bilirubin (0.3-1.2) mg/dL Alkaline Phosphatase (41-126) U/L Lactate Dehydrogenase (120-246) U/L Total Protein (6.2-8.2) d/dL Albumin (3.8-4.9) d/dL Albumin/Globulin Ratio (1.60-3.17) Ratio Onnsy-2-Fldzxvjeegx 350.0 H (99.0-242.0) mg/dL 05/20/23 05/20/23 05/21/23 Range/Units 16:27 20:49 05:55 WBC (4.50-10.00) X 10*3/uL RBC (4.40-5.60) X 10*6/uL Hgb (12.0-15.0) d/dL Hct (39.6-50.0) % Plt Count (140-440) X 10*3/uL MPV (9.5-12.2) FL Lymphocytes # (Manual) (0.90-5.00) X 10*3/uL Crenated Cell Haptoglobin (31.2-198.0) mg/dL Sodium (135-145) mmol/L Potassium (3.5-5.5) mmol/L Carbon Dioxide (21.6-31.8) mmol/L Anion Gap (4.00-12.00) mmol/L BUN (9.0-27.0) mg/dL Est GFR (CKD-EPI) (>=60) BUN/Creatinine Ratio (12.00-20.00) Ratio Glucose (70-110) mg/dL POC Glucose (mg/dL) 149 H 154 H 164 H (70-110) mg/dL Hemoglobin A1c (<=6.0) % Calcium (8.7-10.3) mg/dL Iron (65-175) UG/DL TIBC (228-460) UG/DL % Saturation (15.00-50.00) Transferrin (204.0-354.0) mg/dL Ferritin (22.0-322.0) ng/mL Total Bilirubin (0.3-1.2) mg/dL Alkaline Phosphatase (41-126) U/L Lactate Dehydrogenase (120-246) U/L Total Protein (6.2-8.2) d/dL Albumin (3.8-4.9) d/dL Albumin/Globulin Ratio (1.60-3.17) Ratio Jknwa-0-Xjrdgkaovfy (99.0-242.0) mg/dL Microbiology - Last 24 Hours (Table) 05/19/23 15:15 Blood Culture Gram Stain - Preliminary Blood 05/19/23 15:30 Blood Culture Gram Stain - Preliminary Blood Assessment and Plan (1) Hyperbilirubinemia Narrative/Plan: 57-year-old with history of multiple myeloma presenting with overall weakness, nausea, vomiting decreased appetite fever and diaphoresis for 1 week. Patient noted with elevated bilirubin and 5.4 with AST 23 and ALT 23 alkaline phosphatase 157. Patient reporting no new medications, no history of liver disease, does have a remote history of alcohol abuse but quit drinking 34 years ago. Acute hepatitis panel nonreactive. Likely dealing with intra-hepatic cholestasis, likely medication induced. Patient diagnosed with multiple myeloma, it is common for immunologic therapy to induce intrahepatic cholestasis. Revlimid discontinued at this time. Bilirubin level decreasing. Current Visit: Yes Status: Acute Code(s): E80.6 - OTHER DISORDERS OF BILIRUBIN METABOLISM SNOMED Code(s): 74692574 (2) Acute kidney injury Current Visit: Yes Status: Acute Code(s): N17.9 - ACUTE KIDNEY FAILURE, UNSPECIFIED SNOMED Code(s): 95111101 (3) Hypokalemia Current Visit: Yes Status: Acute Code(s): E87.6 - HYPOKALEMIA SNOMED Code(s): 57647554 (4) Hyponatremia Current Visit: Yes Status: Acute Code(s): E87.1 - HYPO-OSMOLALITY AND HYPONATREMIA SNOMED Code(s): 98229689 (5) Multiple myeloma Current Visit: Yes Status: Chronic Priority: High Code(s): C90.00 - MULTIPLE MYELOMA NOT HAVING ACHIEVED REMISSION SNOMED Code(s): 385954175 Plan: 1. Continue symptomatic and supportive care 2. Daily CMP 3. Liver serologies ordered, negative to date 4. Likely medication induced, Revlimid on hold 5. Avoid hepatotoxic medications Thank you for this consultation, we will continue to follow. Dr. Dave Ricks I agree with the dictator's note, documented as a scribe by Leeann Garces.
[2023-05-21] MEDS: POTASSIUM CHLORIDE ER 20 MEQ TAB.ER PO SCH ×4 (14:45→21:20)
[2023-05-21] MEDS: SODIUM FERRIC GLUCONAT-SUCROSE 125 MG in SODIUM CHLORIDE 0.9% 100 ML IVPB SCH (14:46)
[2023-05-21] MEDS: HYDROcodone/APAP 10-325MG 1 EACH TAB PO PRN ×2 (14:50→21:20)
[2023-05-21 16:08] LABS: Glucose,Whole Blood 243 mg/dL (70-110)
--- NOTE | 2023-05-21 17:31 | P.PN ---
Subjective Progress Note Date: 05/21/23 Principal diagnosis: pneumonia, hx MM At today's visit patient is resting comfortably in bedside chair. He reports significant improvement in symptoms. Denies shortness of breath. Patient afebrile. No other reported complaints at this time Objective - Vital Signs Vital signs: Vital Signs Temp 98.7 F 05/21/23 13:14 Pulse 80 05/21/23 13:14 Resp 18 05/21/23 13:14 BP 114/71 05/21/23 13:14 Pulse Ox 96 05/21/23 13:14 FiO2 Intake & Output 05/20/23 05/21/23 05/21/23 18:59 06:59 18:59 Output Total 1275 1100 400 Balance -1275 -1100 -400 Weight 158.757 kg 158.757 kg Output: Urine 1275 1100 400 Other: Voiding Method Urinal Urinal # Voids 1 1 # Bowel Movements 1 - Constitutional General appearance: Present: no acute distress, obese - EENT Eyes: Present: anicteric sclerae, EOMI ENT: Present: hearing grossly normal - Respiratory Details: breathing is even and unlabored - Cardiovascular Details: skin warm and dry - Integumentary Integumentary: Absent: cyanotic, jaundiced - Neurologic Neurologic Comment(s): grossly intact - Musculoskeletal Musculoskeletal: Present: strength equal bilaterally - Psychiatric Psychiatric: Present: A&O x's 3, appropriate affect, intact judgment & insight - Labs CBC & Chem 7: 05/21/23 07:32 05/21/23 07:32 Labs: Abnormal Lab Results - Last 24 Hours (Table) 05/20/23 05/20/23 05/21/23 Range/Units 05:58 20:49 05:55 WBC (4.50-10.00) X 10*3/uL RBC (4.40-5.60) X 10*6/uL Hgb (12.0-15.0) d/dL Hct (39.6-50.0) % MCHC (32.0-37.0) d/dL Plt Count (140-440) X 10*3/uL MPV (9.5-12.2) FL INR (<1.2) Fibrinogen (200-500) mg/dL Potassium (3.5-5.5) mmol/L BUN/Creatinine Ratio (12.00-20.00) Ratio Glucose (70-110) mg/dL POC Glucose (mg/dL) 154 H 164 H (70-110) mg/dL Calcium (8.7-10.3) mg/dL Ferritin 782.0 H (22.0-322.0) ng/mL Total Bilirubin (0.3-1.2) mg/dL Alkaline Phosphatase (41-126) U/L Total Protein (6.2-8.2) d/dL Albumin (3.8-4.9) d/dL Albumin/Globulin Ratio (1.60-3.17) Ratio 05/21/23 05/21/23 05/21/23 Range/Units 07:32 07:32 11:02 WBC 3.92 L (4.50-10.00) X 10*3/uL RBC 2.87 L (4.40-5.60) X 10*6/uL Hgb 8.0 L (12.0-15.0) d/dL Hct 25.5 L (39.6-50.0) % MCHC 31.4 L (32.0-37.0) d/dL Plt Count 80 L (140-440) X 10*3/uL MPV 13.5 H (9.5-12.2) FL INR (<1.2) Fibrinogen (200-500) mg/dL Potassium 3.1 L (3.5-5.5) mmol/L BUN/Creatinine Ratio 21.82 H (12.00-20.00) Ratio Glucose 167 H (70-110) mg/dL POC Glucose (mg/dL) 139 H (70-110) mg/dL Calcium 8.3 L (8.7-10.3) mg/dL Ferritin (22.0-322.0) ng/mL Total Bilirubin 1.8 H (0.3-1.2) mg/dL Alkaline Phosphatase 180 H (41-126) U/L Total Protein 5.4 L (6.2-8.2) d/dL Albumin 2.5 L (3.8-4.9) d/dL Albumin/Globulin Ratio 0.86 L (1.60-3.17) Ratio 05/21/23 05/21/23 05/21/23 Range/Units 13:09 13:09 16:05 WBC (4.50-10.00) X 10*3/uL RBC (4.40-5.60) X 10*6/uL Hgb (12.0-15.0) d/dL Hct (39.6-50.0) % MCHC (32.0-37.0) d/dL Plt Count (140-440) X 10*3/uL MPV (9.5-12.2) FL INR 1.2 H (<1.2) Fibrinogen 698 H (200-500) mg/dL Potassium (3.5-5.5) mmol/L BUN/Creatinine Ratio (12.00-20.00) Ratio Glucose (70-110) mg/dL POC Glucose (mg/dL) 243 H (70-110) mg/dL Calcium (8.7-10.3) mg/dL Ferritin (22.0-322.0) ng/mL Total Bilirubin (0.3-1.2) mg/dL Alkaline Phosphatase (41-126) U/L Total Protein (6.2-8.2) d/dL Albumin (3.8-4.9) d/dL Albumin/Globulin Ratio (1.60-3.17) Ratio Microbiology - Last 24 Hours (Table) 05/19/23 15:30 Blood Culture Gram Stain - Preliminary Blood Blood Culture - Preliminary Coagulase Negative Staph Coagulase Negative Staph#2 05/19/23 15:15 Blood Culture Gram Stain - Preliminary Blood Blood Culture - Preliminary Coagulase Negative Staph Coagulase Negative Staph#2 Assessment and Plan (1) Anemia Current Visit: Yes Status: Acute Priority: High Code(s): D64.9 - ANEMIA, UNSPECIFIED SNOMED Code(s): 268952796 (2) Bacterial pneumonia Current Visit: Yes Status: Acute Priority: High Code(s): J15.9 - UNSPECIFIED BACTERIAL PNEUMONIA SNOMED Code(s): 20962781 (3) Multiple myeloma Current Visit: Yes Status: Chronic Priority: High Code(s): C90.00 - MULTIPLE MYELOMA NOT HAVING ACHIEVED REMISSION SNOMED Code(s): 236941595 Plan: Multiple myeloma: -History of multiple myeloma. He is a patient of Dr. Méndez. Patient was referred to our clinic for anemia in 07/2020. 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 This level was highly suspicious for overt myeloma. The patient was therefore recommended bone marrow aspiration biopsy which was performed on . This confirmed multiple myeloma, with about 80% involvement of the bone marrow with lambda restricted plasma cells. Multiple myeloma FISH study was negative. Patient was recommended treatment with revlimid and completed 6 cycles. Patient then started treatment with Velcade in 11/2020 and completed 6 cycles in March 2021. He continued on decadron and revlimid. The patient was referred to the [facility] to be evaluated for an auto SCT. He had bone marrow repeated as part of pre-op workup in 09/22 showing about a 5% population of lambda restricted plasma cells. Proceeded to transplant on 03/01/22. The patient was started on maintenance Revlimid in late 05/23. Patients last visit in clinic was in 11/2022. He was reported some increase in fatigue and shortness of breath on exertion. CBC showed hemoglobin of 8.6, WBC 1.62, and plt 68.5. The patient's new pancytopenia was discussed with him. Clinically it was felt to be most likely due to the revlimid effect. He was advised to hold the medication. Further workup was ordered to rule out other causes, including recurrent myeloma. However these were felt to be less likely clinically. He was instructed to f/u in 3 weeks but has not followed in clinic since. Patient has been somewhat non-complaint with treatment and followups throughout his treatment. At today's visit patient reports that he still taking Revlimid as directed. -Revlimid will held until patient recovers from acute illness -Will schedule f/u with Dr. Méndez upon discharge. F/u in discharge plan. However, at todays visit patient reports that he does not like going to both Dr. Méndez and his transplant doctor, Dr. Juarez, as he feels visits are too frequent. He reports he will likely just start following up with Dr. Juarez. He was encouraged to f/u upon discharge to discuss revlimid and observed pancytopenia. He verbalized understanding Pancytopenia: -History of multiple myeloma. Pancytopenia was noted in 11/2022 in clinic, with further workup ordered but patient was lost to follow up -Upon admission CBC revealed WBC 4.3, hemoglobin 8.9, platelets 100,000. -Anemia likely multifactorial with history of MM on treatment with revlimid superimposed by acute infectious/inflammatory process -UA noted elevated bilirubin. Total bilirubin 5.4. Bilirubin improved, 1.8. -Hemolysis and DIC workup negative. -ALP elevated at 142. AST/ALT within normal limits. Hepatitis panel negative. GI following -Iron studies reveal iron 16 and iron saturation 9.4%, ferritin 782. Labs not consistent with LISHA. Recommend f/u outpt once acutely recovered for repeat studies -Will continue to monitor counts. Please transfuse for hemoglobin less than 7 Pneumonia: -CXR and CT revealed RLL pneumonia -Continues on azithromycin and Rocephin -Defer to IM
[2023-05-21] MEDS: AZITHROMYCIN 500 MG in SODIUM CHLORIDE 0.9% 250 ML IVPB SCH (18:12)
[2023-05-21] MEDS ORDERED: DEXTROSE 50% SYRINGE 50 ML IVP PRN ×2 (19:24)
[2023-05-21] MEDS: traZODone HCL 50 MG TAB PO SCH (21:19)
[2023-05-21] MEDS: INSULIN ASPART (NovoLOG) 100 UNIT/ML VIAL SQ SCH (21:21)
[2023-05-21 23:18] LABS: Glucose,Whole Blood 107 mg/dL (70-110)
[2023-05-22] MEDS: PREGABALIN 50 MG CAP PO SCH ×4 (00:40→20:41)
[2023-05-22] MEDS: POTASSIUM CHLORIDE ER 20 MEQ TAB.ER PO SCH ×2 (02:49→02:51)
[2023-05-22 06:05] LABS: Glucose,Whole Blood 158 mg/dL (70-110)
[2023-05-22] MEDS: PANTOPRAZOLE 40 MG TABLET PO SCH (06:48)
[2023-05-22] MEDS: INSULIN ASPART (NovoLOG) 100 UNIT/ML VIAL SQ SCH ×4 (06:49→20:25)
[2023-05-22] MEDS: SODIUM CHLORIDE 0.9% 1,000 ML IV SCH ×3 (06:50→20:41)
--- NOTE | 2023-05-22 08:36 | P.PN ---
Subjective Progress Note Date: 05/22/23 Principal diagnosis: Hyperbilirubinemia. Pneumonia with positive blood culture. This is a 57-year-old white male with history of multiple myeloma and cytopenia element history with hyperbilirubinemia and acute kidney injury. The patient is improving much better. Blood cultures did show positivity of coagulase-negative Staphylococcus aureus in both blood cultures. No fever stated the patient states he is feeling much better looks less jaundiced today. Appreciate multiple consultants input. Medication-induced cholestasis is primary cause at this time given workup. Objective - Vital Signs Vital signs: Vital Signs Temp 99.3 F 05/22/23 07:06 Pulse 83 05/22/23 07:06 Resp 17 05/22/23 07:06 BP 126/79 05/22/23 07:06 Pulse Ox 97 05/22/23 07:06 FiO2 Intake & Output 05/21/23 05/22/23 05/22/23 18:59 06:59 18:59 Output Total 1160 800 Balance -1160 -800 Weight 158.757 kg Output: Urine 1160 800 Other: Voiding Method Urinal Urinal # Voids 1 - Constitutional General appearance: Present: obese - EENT Eyes: Absent: abnormal pupil - Neck Neck: Absent: lymphadenopathy - Respiratory Respiratory: right: diminished - Cardiovascular Rhythm: regular Heart sounds: normal: S1, S2 Abnormal Heart Sounds: Absent: S3 Gallop - Gastrointestinal General gastrointestinal: Present: soft. Absent: tenderness - Musculoskeletal Musculoskeletal: Present: generalized weakness - Labs CBC & Chem 7: 05/21/23 07:32 05/21/23 23:06 Labs: Abnormal Lab Results - Last 24 Hours (Table) 05/21/23 05/21/23 05/21/23 Range/Units 07:32 07:32 07:32 WBC 3.92 L (4.50-10.00) X 10*3/uL RBC 2.87 L (4.40-5.60) X 10*6/uL Hgb 8.0 L (12.0-15.0) d/dL Hct 25.5 L (39.6-50.0) % MCHC 31.4 L (32.0-37.0) d/dL Plt Count 80 L (140-440) X 10*3/uL MPV 13.5 H (9.5-12.2) FL INR (<1.2) Fibrinogen (200-500) mg/dL Potassium 3.1 L (3.5-5.5) mmol/L BUN/Creatinine Ratio 21.82 H (12.00-20.00) Ratio Glucose 167 H (70-110) mg/dL POC Glucose (mg/dL) (70-110) mg/dL Hemoglobin A1c 6.1 H (<=6.0) % Calcium 8.3 L (8.7-10.3) mg/dL Total Bilirubin 1.8 H (0.3-1.2) mg/dL Alkaline Phosphatase 180 H (41-126) U/L Total Protein 5.4 L (6.2-8.2) d/dL Albumin 2.5 L (3.8-4.9) d/dL Albumin/Globulin Ratio 0.86 L (1.60-3.17) Ratio 05/21/23 05/21/23 05/21/23 Range/Units 11:02 13:09 13:09 WBC (4.50-10.00) X 10*3/uL RBC (4.40-5.60) X 10*6/uL Hgb (12.0-15.0) d/dL Hct (39.6-50.0) % MCHC (32.0-37.0) d/dL Plt Count (140-440) X 10*3/uL MPV (9.5-12.2) FL INR 1.2 H (<1.2) Fibrinogen 698 H (200-500) mg/dL Potassium (3.5-5.5) mmol/L BUN/Creatinine Ratio (12.00-20.00) Ratio Glucose (70-110) mg/dL POC Glucose (mg/dL) 139 H (70-110) mg/dL Hemoglobin A1c (<=6.0) % Calcium (8.7-10.3) mg/dL Total Bilirubin (0.3-1.2) mg/dL Alkaline Phosphatase (41-126) U/L Total Protein (6.2-8.2) d/dL Albumin (3.8-4.9) d/dL Albumin/Globulin Ratio (1.60-3.17) Ratio 05/21/23 05/21/23 05/21/23 Range/Units 16:05 17:23 23:06 WBC (4.50-10.00) X 10*3/uL RBC (4.40-5.60) X 10*6/uL Hgb (12.0-15.0) d/dL Hct (39.6-50.0) % MCHC (32.0-37.0) d/dL Plt Count (140-440) X 10*3/uL MPV (9.5-12.2) FL INR (<1.2) Fibrinogen (200-500) mg/dL Potassium 3.1 L 3.3 L (3.5-5.5) mmol/L BUN/Creatinine Ratio (12.00-20.00) Ratio Glucose (70-110) mg/dL POC Glucose (mg/dL) 243 H (70-110) mg/dL Hemoglobin A1c (<=6.0) % Calcium (8.7-10.3) mg/dL Total Bilirubin (0.3-1.2) mg/dL Alkaline Phosphatase (41-126) U/L Total Protein (6.2-8.2) d/dL Albumin (3.8-4.9) d/dL Albumin/Globulin Ratio (1.60-3.17) Ratio 05/22/ Range/Units 06:04 WBC (4.50-10.00) X 10*3/uL RBC (4.40-5.60) X 10*6/uL Hgb (12.0-15.0) d/dL Hct (39.6-50.0) % MCHC (32.0-37.0) d/dL Plt Count (140-440) X 10*3/uL MPV (9.5-12.2) FL INR (<1.2) Fibrinogen (200-500) mg/dL Potassium (3.5-5.5) mmol/L BUN/Creatinine Ratio (12.00-20.00) Ratio Glucose (70-110) mg/dL POC Glucose (mg/dL) 158 H (70-110) mg/dL Hemoglobin A1c (<=6.0) % Calcium (8.7-10.3) mg/dL Total Bilirubin (0.3-1.2) mg/dL Alkaline Phosphatase (41-126) U/L Total Protein (6.2-8.2) d/dL Albumin (3.8-4.9) d/dL Albumin/Globulin Ratio (1.60-3.17) Ratio Microbiology - Last 24 Hours (Table) 05/19/23 15:30 Blood Culture Gram Stain - Preliminary Blood Blood Culture - Preliminary Coagulase Negative Staph Coagulase Negative Staph#2 05/19/23 15:15 Blood Culture Gram Stain - Preliminary Blood Blood Culture - Preliminary Coagulase Negative Staph Coagulase Negative Staph#2 Assessment and Plan (1) Diabetes Current Visit: Yes Status: Acute Code(s): E11.9 - TYPE 2 DIABETES MELLITUS WITHOUT COMPLICATIONS SNOMED Code(s): 72077546 (2) Hyperbilirubinemia Current Visit: Yes Status: Acute Code(s): E80.6 - OTHER DISORDERS OF BILIRUBIN METABOLISM SNOMED Code(s): 73288715 (3) Hypokalemia Current Visit: Yes Status: Acute Code(s): E87.6 - HYPOKALEMIA SNOMED Code(s): 42786029 (4) Hyponatremia Current Visit: Yes Status: Acute Code(s): E87.1 - HYPO-OSMOLALITY AND HYPONATREMIA SNOMED Code(s): 59372914 (5) Multiple myeloma Current Visit: Yes Status: Chronic Priority: High Code(s): C90.00 - M ULTIPLE MYELOMA NOT HAVING ACHIEVED REMISSION SNOMED Code(s): 378515250 (6) Depression Current Visit: No Status: Acute Code(s): F32.A - DEPRESSION, UNSPECIFIED S NOMED Code(s): 56541812 Plan: Continue current regimen of treatment. Insulin as necessary for diabetes. Check CBC and CMP in a.m. Anticipate discharge in next 24-48 hours if he is tolerating diet and laboratories are becoming more nominal. [facility] group will be covering..
[2023-05-22 08:40] LABS: HCT 25.2 % (39.6-50.0); MCH 28.6 pg (27.0-32.0); MCHC 31.7 d/dL (32.0-37.0); Mean Platelet Volume 12.7 FL (9.5-12.2); NRBC Per 100 WBC 0 X 10*3/uL (0.00-0.01); Platelet Count 74 X 10*3/uL (140-440); RDW 13.6 % (11.5-14.5)
[2023-05-22] MEDS: amLODIPine 10 MG TAB PO SCH (09:12)
[2023-05-22] MEDS: PARoxetine 20 MG TAB PO SCH (09:12)
[2023-05-22] MEDS: METOPROLOL TARTRATE 12.5 MG TAB PO SCH ×2 (09:12→20:40)
[2023-05-22] MEDS: ACYCLOVIR 200 MG CAP PO SCH ×2 (09:13→20:40)
[2023-05-22] MEDS: ASPIRIN 81 MG PO SCH (09:13)
[2023-05-22] MEDS: SODIUM FERRIC GLUCONAT-SUCROSE 125 MG in SODIUM CHLORIDE 0.9% 100 ML IVPB SCH (09:16)
--- NOTE | 2023-05-22 10:01 | P.PN ---
Subjective Progress Note Date: 05/22/23 Principal diagnosis: Hyperbilirubinemia This is a pleasant 57-year-old male that presented to the emergency department yesterday with complaints of severe weakness, diaphoresis and discoloration of his skin and decreased appetite over the last few days. He has a past medical history including multiple myeloma and follows with Dr. Méndez, diabetes mellitus, hypertension, gout, chronic pain, and coronary artery disease status post AK. He states he had been feeling. Sweaty having nausea and vomiting and fever over the last 1 week duration. Gastroenterology was consulted for elevated bilirubin. Patient denies any history of liver disease. He denies any new medications. States that he used to be an alcoholic but he quit drinking 34 years ago. He was diagnosed with multiple myeloma about 4 years ago and started on Revlimid. He currently denies any abdominal pain, nausea or vomiting at this time. Still feeling overall weak and tired. Admitting labs WBC 4.3 hemoglobin 8.9 hematocrit 27 platelet count 100,018 or 1.4 sodium 1:30 potassium 2.9 BUN 41 creatinine 1.9, total bilirubin 5.4 conjugated bili 2.5 unconjugated bili 1.3 AST 23 ALT 23 alkaline phosphatase 157 lipase 92 hepatitis panel nonreactive. Imaging: CT chest abdomen and pelvis without contrast reports right lower lobe airspace consolidation concerning for acute infectious process. Colonic diver ticulosis without acute inflammatory changes. Nonobstructing right renal calculi and other incidental findings. Gallbladder ultrasound reported hepatomegaly, normal appearance of gallbladder. 05/21/2023 Patient seen and examined today as a follow-up. He is up in a bedside chair. He states he is feeling better today. He was seen by oncology reported diagnosed with multiple myeloma about 3 years ago, last seen November of this year. Patient was supposed to follow-up in 3 weeks however had not. They discontinued his Revlimid for acute infectious process. Today's labs WBC 3.9 hemoglobin 8.0 platelet count 80,000 sodium 136 potassium 3.1 total bilirubin 1.8 AST 23 ALT 16 alkaline phosphatase 180 liver serologies negative to date. Within 2122 Patient seen and examined as a follow-up. States his tailbone is hurting him. States he was sitting up in the chair for quite some time yesterday. Otherwise he is without any other complaints. Denies any abdominal pain, nausea or vomiting. Labs currently pending from this morning. Objective - Vital Signs Vital signs: Vital Signs Temp 98.9 F 05/22/23 02:00 Pulse 81 05/22/23 02:00 Resp 17 05/22/23 02:00 BP 116/76 05/22/23 02:00 Pulse Ox 97 05/22/23 02:00 FiO2 Intake & Output 05/21/23 05/22/23 05/22/23 18:59 06:59 18:59 Output Total 1160 800 Balance -1160 -800 Weight 158.757 kg Output: Urine 1160 800 Other: Voiding Method Urinal Urinal # Voids 1 - Exam General appearance: The patient is alert, oriented, appears in no acute distress. HET: Head is normocephalic and atraumatic. Conjunctiva pink. Sclera anicteric. Neck: Supple without lymphadenopathy. Abdomen: Soft, nontender, nondistended with bowel sounds. No guarding or rigidity. Extremities: Normal skin color and turgor. No pedal edema Skin: No rashes, mildly jaundiced. Neurological: No focal deficits. Alert and oriented. - Labs CBC & Chem 7: 05/22/23 05:46 05/21/23 23:06 Labs: Abnormal Lab Results - Last 24 Hours (Table) 05/21/23 05/21/23 05/21/23 Range/Units 07:32 07:32 07:32 WBC 3.92 L (4.50-10.00) X 10*3/uL RBC 2.87 L (4.40-5.60) X 10*6/uL Hgb 8.0 L (12.0-15.0) d/dL Hct 25.5 L (39.6-50.0) % MCHC 31.4 L (32.0-37.0) d/dL Plt Count 80 L (140-440) X 10*3/uL MPV 13.5 H (9.5-12.2) FL INR (<1.2) Fibrinogen (200-500) mg/dL Potassium 3.1 L (3.5-5.5) mmol/L BUN/Creatinine Ratio 21.82 H (12.00-20.00) Ratio Glucose 167 H (70-110) mg/dL POC Glucose (mg/dL) (70-110) mg/dL Hemoglobin A1c 6.1 H (<=6.0) % Calcium 8.3 L (8.7-10.3) mg/dL Total Bilirubin 1.8 H (0.3-1.2) mg/dL Alkaline Phosphatase 180 H (41-126) U/L Total Protein 5.4 L (6.2-8.2) d/dL Albumin 2.5 L (3.8-4.9) d/dL Albumin/Globulin Ratio 0.86 L (1.60-3.17) Ratio 05/21/23 05/21/23 05/21/23 Range/Units 11:02 13:09 13:09 WBC (4.50-10.00) X 10*3/uL RBC (4.40-5.60) X 10*6/uL Hgb (12.0-15.0) d/dL Hct (39.6-50.0) % MCHC (32.0-37.0) d/dL Plt Count (140-440) X 10*3/uL MPV (9.5-12.2) FL INR 1.2 H (<1.2) Fibrinogen 698 H (200-500) mg/dL Potassium (3.5-5.5) mmol/L BUN/Creatinine Ratio (12.00-20.00) Ratio Glucose (70-110) mg/dL POC Glucose (mg/dL) 139 H (70-110) mg/dL Hemoglobin A1c (<=6.0) % Calcium (8.7-10.3) mg/dL Total Bilirubin (0.3-1.2) mg/dL Alkaline Phosphatase (41-126) U/L Total Protein (6.2-8.2) d/dL Albumin (3.8-4.9) d/dL Albumin/Globulin Ratio (1.60-3.17) Ratio 05/21/23 05/21/23 05/21/23 Range/Units 16:05 17:23 23:06 WBC (4.50-10.00) X 10*3/uL RBC (4.40-5.60) X 10*6/uL Hgb (12.0-15.0) d/dL Hct (39.6-50.0) % MCHC (32.0-37.0) d/dL Plt Count (140-440) X 10*3/uL MPV (9.5-12.2) FL INR (<1.2) Fibrinogen (200-500) mg/dL Potassium 3.1 L 3.3 L (3.5-5.5) mmol/L BUN/Creatinine Ratio (12.00-20.00) Ratio Glucose (70-110) mg/dL POC Glucose (mg/dL) 243 H (70-110) mg/dL Hemoglobin A1c (<=6.0) % Calcium (8.7-10.3) mg/dL Total Bilirubin (0.3-1.2) mg/dL Alkaline Phosphatase (41-126) U/L Total Protein (6.2-8.2) d/dL Albumin (3.8-4.9) d/dL Albumin/Globulin Ratio (1.60-3.17) Ratio 05/22/23 Range/Units 06:04 WBC (4.50-10.00) X 10*3/uL RBC (4.40-5.60) X 10*6/uL Hgb (12.0-15.0) d/dL Hct (39.6-50.0) % MCHC (32.0-37.0) d/dL Plt Count (140-440) X 10*3/uL MPV (9.5-12.2) FL INR (<1.2) Fibrinogen (200-500) mg/dL Potassium (3.5-5.5) mmol/L BUN/Creatinine Ratio (12.00-20.00) Ratio Glucose (70-110) mg/dL POC Glucose (mg/dL) 158 H (70-110) mg/dL Hemoglobin A1c (<=6.0) % Calcium (8.7-10.3) mg/dL Total Bilirubin (0.3-1.2) mg/dL Alkaline Phosphatase (41-126) U/L Total Protein (6.2-8.2) d/dL Albumin (3.8-4.9) d/dL Albumin/Globulin Ratio (1.60-3.17) Ratio Microbiology - Last 24 Hours (Table) 05/19/23 15:30 Blood Culture Gram Stain - Preliminary Blood Blood Culture - Preliminary Coagulase Negative Staph Coagulase Negative Staph#2 05/19/23 15:15 Blood Culture Gram Stain - Preliminary Blood Blood Culture - Preliminary Coagulase Negative Staph Coagulase Negative Staph#2 Assessment and Plan (1) Hyperbilirubinemia Narrative/Plan: 57-year-old with history of multiple myeloma presenting with overall weakness, nausea, vomiting decreased appetite fever and diaphoresis for 1 week. Patient noted with elevated bilirubin and 5.4 with AST 23 and ALT 23 alkaline phosphatase 157. Patient reporting no new medications, no history of liver disease, does have a remote history of alcohol abuse but quit drinking 34 years ago. Acute hepatitis panel nonreactive. Likely dealing with intra-hepatic cholestasis, likely medication induced. Patient diagnosed with multiple myeloma, it is common for immunologic therapy to induce intrahepatic cholestasis. Revlimid discontinued at this time. Bilirubin level decreasing. Current Visit: Yes Status: Acute Code(s): E80.6 - OTHER DISORDERS OF BILIRUBIN METABOLISM SNOMED Code(s): 71890277 (2) Acute kidney injury Current Visit: Yes Status: Acute Code(s): N17.9 - ACUTE KIDNEY FAILURE, UNSPECIFIED SNOMED Code(s): 57148484 (3) Hypokalemia Current Visit: Yes Status: Acute Code(s): E87.6 - HYPOKALEMIA SNOMED Code(s): 91211840 (4) Hyponatremia Current Visit: Yes Status: Acute Code(s): E87.1 - HYPO-OSMOLALITY AND HYPONATREMIA SNOMED Code(s): 73053219 (5) Multiple myeloma Current Visit: Yes Status: Chronic Priority: High Code(s): C90.00 - MULT IPLE MYELOMA NOT HAVING ACHIEVED REMISSION SNOMED Code(s): 373622472 (6) Pancytopenia Narrative/Plan: Secondary to underlying multiple myeloma Current Visit: Yes Status: Acute Code(s): D61.818 - OTHER PANCYTOPENIA SNOMED Code(s): 641040763 Plan: 1. Continue symptomatic and supportive care 2. Diet as tolerated 3. Liver serologies ordered, negative to date 4. Likely medication induced, Revlimid on hold 5. Avoid hepatotoxic medications 6. Can follow-up with gastroenterology as needed. Otherwise will follow up with oncology and monitor LFTs. Thank you for this consultation, we will sign off at this time. Dr. Dave Ricks I agree with the dictator's note, documented as a scribe by Leeann Chavira
[2023-05-22 11:36] LABS: Glucose,Whole Blood 157 mg/dL (70-110)
[2023-05-22 11:58] LABS: ALT 23 U/L (10-49); AST 25 U/L (14-35); Albumin 2.5 d/dL (3.8-4.9); Albumin/Globulin Ratio 0.89 Ratio (1.60-3.17); Alkaline Phosphatase 210 U/L (41-126); BUN/Creat Ratio 22.89 Ratio (12.00-20.00); Blood Urea Nitrogen 20.6 mg/dL (9.0-27.0); Calcium 8.1 mg/dL (8.7-10.3); Carbon Dioxide 23.2 mmol/L (21.6-31.8); Chloride 105 mmol/L (96-109); Globulin 2.8 d/dL (1.6-3.3); Glucose 127 mg/dL (70-110); Potassium 4.2 mmol/L (3.5-5.5); Sodium 136 mmol/L (135-145); Total Bilirubin 1.1 mg/dL (0.3-1.2); Total Protein 5.3 d/dL (6.2-8.2)
[2023-05-22] MEDS: HYDROcodone/APAP 10-325MG 1 EACH TAB PO PRN ×2 (12:32→20:40)
--- NOTE | 2023-05-22 15:27 | CDI ---
Documentation Clarification Form Date: 05/22/2023 02:51:00 PM From: Lenore Sheldon RN CCDS Phone: [phone] Admit Date: 05/19/2023 05:53:00 PM Patient Name: Reid Chandler Visit Number: [id number] Discharge Date: ATTENTION: The Clinical Documentation Specialists (CDI) and [facility] Coding Staff appreciate your assistance in clarifying documentation. Please respond to the clarification below the line at the bottom and electronically sign. The CDI & [facility] Coding staff will review the response and follow-up if needed. Please note: Queries are made part of the Legal Health Record. If you have any questions, please contact the author of this message via ITS. Dr. Perez Pennington There is documentation of positive coagulase-negative Staphylococcus aureus in both blood cultures is documented in Medicine progress note dated 06/01. Positive coagulase negative Staphylococcus aureus blood culture is considered a lab finding. Additional clarification regarding bacteremia is requested. Patient history/risk factors: 57-year-old male presents to the ED with significant weakness, significant jaundice. Medical history: Multiple myeloma, HTN and DM. H&P, 05/20. Clinical Indicators: VSS. 05/19: 15:04 B/P 100/89, HR 85, RR 18, SpO2 96% room air VSS. 05/20 00:53: B/P 110/62, HR 101, RR 18, SpO2 95% room air WBC, 05/19: 4.3 Neutrophils, 05/19 3.70 Plasma Lactic acid praveen, 05/19: 1.5 Blood Culture:05/19 Coagulase-negative Staphylococcus aureus. CXR, 05/19: Focal posterior right midlung pneumonia US Gallbladder, 05/19: Hepatomegaly, normal appearance of the gallbladder CT ChestAbdPelvis, 05/19: Right lower lobe airspace consolidation concerning for infectious process. Colonic diverticulosis without acute inflammatory changes. Non Obstructing right renal calculi Heme Onc consult, 05/20: CXR and CT revealed RLL pneumonia. H&P, 05/20 Fevers noted since admission. Treatment: 05/19 0.9ns 2L IV bolus, 05/19 0.9ns 1L IV bolus Antibiotics: 05/19 Azithromycin IVPB x 1; 05/19 Rocephin IVPB x Ceftriaxone IVPB Q24HR; 05/21 Azithromycin IVPB Daily x 2 bags; Please provide additional clarification regarding the etiology/cause and/or clinical significance of the bacteremia: [ ] Bacteremia is related to sepsis [ ] Bacteremia is due to infectious process, pneumonia poa [ ] Bacteremia is not clinically significant [ ] Other, please specify [ ] Unable to determine (Template Last Revised: December 2020) sepsis with fever and leukopenia in the progress notes/[place] MTDD
[2023-05-22 16:35] LABS: Glucose,Whole Blood 131 mg/dL (70-110)
--- NOTE | 2023-05-22 17:34 | P.PN ---
Subjective Patient is seen for follow-up for acute kidney injury prerenal and associated with underlying infection and pneumonia. Currently improving with IV hydration. Overall patient states he is feeling better. Creatinine decreased to 0.9 today. Maintained on IVF. Patient reports good urine output. Objective - Vital Signs Vital signs: Vital Signs Temp 98.3 F 05/22/23 12:54 Pulse 92 05/22/23 12:54 Resp 18 05/22/23 12:54 BP 153/79 05/22/23 12:54 Pulse Ox 99 05/22/23 12:54 FiO2 Intake & Output 05/21/23 05/22/23 05/22/23 18:59 06:59 18:59 Output Total 1160 800 Balance -1160 -800 Weight 158.757 kg Output: Urine 1160 800 Other: Voiding Method Urinal Urinal Urinal # Voids 1 - Exam Patient is awake, comfortable, no acute distress Examination of the heart S1 and S2 Examination of the lungs decreased breath sounds at the bases Abdomen is soft obese nontender Examination lower extremities shows no significant edema. MOVER HELPER exam grossly intact - Labs CBC & Chem 7: 05/22/23 05:46 05/22/23 05:46 Labs: Abnormal Lab Results - Last 24 Hours (Table) 05/21/23 05/21/23 05/21/23 Range/Units 07:32 17:23 23:06 WBC (4.50-10.00) X 10*3/uL RBC (4.40-5.60) X 10*6/uL Hgb (12.0-15.0) d/dL Hct (39.6-50.0) % MCHC (32.0-37.0) d/dL Plt Count (140-440) X 10*3/uL MPV (9.5-12.2) FL Potassium 3.1 L 3.3 L (3.5-5.1) mmol/L BUN/Creatinine Ratio (12.00-20.00) Ratio Glucose (70-110) mg/dL POC Glucose (mg/dL) (70-110) mg/dL Hemoglobin A1c 6.1 H (<=6.0) % Calcium (8.7-10.3) mg/dL Alkaline Phosphatase (41-126) U/L Total Protein (6.2-8.2) d/dL Albumin (3.8-4.9) d/dL Albumin/Globulin Ratio (1.60-3.17) Ratio 05/22/23 05/22/23 05/22/23 Range/Units 05:46 05:46 05:46 WBC 2.90 L (4.50-10.00) X 10*3/uL RBC 2.80 L (4.40-5.60) X 10*6/uL Hgb 8.0 L (12.0-15.0) d/dL Hct 25.2 L (39.6-50.0) % MCHC 31.7 L (32.0-37.0) d/dL Plt Count 74 L (140-440) X 10*3/uL MPV 12.7 H (9.5-12.2) FL Potassium (3.5-5.1) mmol/L BUN/Creatinine Ratio 22.89 H (12.00-20.00) Ratio Glucose 127 H (70-110) mg/dL POC Glucose (mg/dL) (70-110) mg/dL Hemoglobin A1c 6.2 H (<=6.0) % Calcium 8.1 L (8.7-10.3) mg/dL Alkaline Phosphatase 210 H (41-126) U/L Total Protein 5.3 L (6.2-8.2) d/dL Albumin 2.5 L (3.8-4.9) d/dL Albumin/Globulin Ratio 0.89 L (1.60-3.17) Ratio 05/22/23 05/22/23 05/22/23 Range/Units 06:04 11:35 16:33 WBC (4.50-10.00) X 10*3/uL RBC (4.40-5.60) X 10*6/uL Hgb (12.0-15.0) d/dL Hct (39.6-50.0) % MCHC (32.0-37.0) d/dL Plt Count (140-440) X 10*3/uL MPV (9.5-12.2) FL Potassium (3.5-5.1) mmol/L BUN/Creatinine Ratio (12.00-20.00) Ratio Glucose (70-110) mg/dL POC Glucose (mg/dL) 158 H 157 H 131 H (70-110) mg/dL Hemoglobin A1c (<=6.0) % Calcium (8.7-10.3) mg/dL Alkaline Phosphatase (41-126) U/L Total Protein (6.2-8.2) d/dL Albumin (3.8-4.9) d/dL Albumin/Globulin Ratio (1.60-3.17) Ratio Microbiology - Last 24 Hours (Table) 05/19/23 15:30 Blood Culture Gram Stain - Final Blood Blood Culture - Final Coagulase Negative Staph Coagulase Negative Staph#2 05/19/23 15:15 Blood Culture Gram Stain - Final Blood Blood Culture - Final Coagulase Negative Staph Coagulase Negative Staph#2 Assessment and Plan Assessment: 1. Acute kidney injury, nonoliguric ATN secondary to hypotension in the setting of use of NSAIDs. Status post IV fluids. UA shows 1+ protein no blood or cells. CT of the abdomen was negative for any obstructive uropathy. 2. 6 mm right renal calculus noted without obstruction 3. Right mid lung pneumonia 4. Hyperbilirubinemia with evidence of hepatomegaly on CT of the abdomen. No gallstones noted. Hepatitis serologies are negative 5. Hypokalemia associated with decreased intake as well as diarrhea 6. Hyponatremia, hypovolemic, improved 7. Anemia with iron deficiency 8. History of multiple myeloma, details not known Plan: Continue IV fluids Continue IV iron Repeat labs in a.m. Accurate I's and O's Avoid nephrotoxic agents
[2023-05-22] MEDS: traZODone HCL 50 MG TAB PO SCH (20:41)
[2023-05-22 20:54] LABS: Glucose,Whole Blood 144 mg/dL (70-110)
[2023-05-23] MEDS ORDERED: ACETAMINOPHEN TAB 325 MG TAB PO PRN (01:21)
[2023-05-23 06:25] LABS: Glucose,Whole Blood 126 mg/dL (70-110)
[2023-05-23] MEDS: INSULIN ASPART (NovoLOG) 100 UNIT/ML VIAL SQ SCH ×4 (06:26→20:48)
[2023-05-23] MEDS: PANTOPRAZOLE 40 MG TABLET PO SCH (06:42)
[2023-05-23] MEDS: SODIUM CHLORIDE 0.9% 1,000 ML IV SCH ×3 (06:43→21:00)
[2023-05-23] MEDS: HYDROcodone/APAP 10-325MG 1 EACH TAB PO PRN ×2 (08:20→15:17)
[2023-05-23] MEDS: PREGABALIN 50 MG CAP PO SCH ×3 (08:20→20:53)
[2023-05-23] MEDS: METOPROLOL TARTRATE 12.5 MG TAB PO SCH ×2 (08:21→20:53)
[2023-05-23] MEDS: ASPIRIN 81 MG PO SCH (08:21)
[2023-05-23] MEDS: amLODIPine 10 MG TAB PO SCH (08:21)
[2023-05-23] MEDS: PARoxetine 20 MG TAB PO SCH (08:21)
[2023-05-23] MEDS: ACYCLOVIR 200 MG CAP PO SCH ×2 (08:22→20:53)
[2023-05-23] MEDS: SODIUM FERRIC GLUCONAT-SUCROSE 125 MG in SODIUM CHLORIDE 0.9% 100 ML IVPB SCH (09:41)
[2023-05-23 09:52] LABS: HCT 24.8 % (39.6-50.0); HGB 7.8 d/dL (12.0-15.0); Immature Platelet Fraction 7.8 % (1.1-6.1); MCH 28.3 pg (27.0-32.0); MCHC 31.5 d/dL (32.0-37.0); MCV 89.9 FL (80.0-97.0); NRBC Per 100 WBC 0 X 10*3/uL (0.00-0.01); Platelet Count 68 X 10*3/uL (140-440); RBC 2.76 X 10*6/uL (4.40-5.60); RDW 13.4 % (11.5-14.5); WBC 2.56 X 10*3/uL (4.50-10.00)
[2023-05-23 10:05] LABS: ALT 21 U/L (10-49); AST 22 U/L (14-35); Albumin 2.5 d/dL (3.8-4.9); Albumin/Globulin Ratio 0.86 Ratio (1.60-3.17); Alkaline Phosphatase 222 U/L (41-126); BUN/Creat Ratio 18.88 Ratio (12.00-20.00); Blood Urea Nitrogen 15.1 mg/dL (9.0-27.0); Calcium 8.1 mg/dL (8.7-10.3); Carbon Dioxide 22.5 mmol/L (21.6-31.8); Chloride 102 mmol/L (96-109); Globulin 2.9 d/dL (1.6-3.3); Glucose 131 mg/dL (70-110); Potassium 3.7 mmol/L (3.5-5.5); Sodium 135 mmol/L (135-145); Total Bilirubin 1.9 mg/dL (0.3-1.2); Total Protein 5.4 d/dL (6.2-8.2)
[2023-05-23] MEDS ORDERED: IPRATROPIUM-ALBUTEROL 3 ML NEB INHALATION STA (10:56)
[2023-05-23 11:25] LABS: Glucose,Whole Blood 172 mg/dL (70-110)
--- NOTE | 2023-05-23 12:07 | P.PN ---
Subjective Covering Dr. Pennington over the weekend This is a pleasant 57 years old male with multiple medical problems presents with diarrhea and generalized weakness initially read patient was found to have right lower lobe pneumonia and he was treated with ceftriaxone. However he still spiking fever 100.1 today. And he has 2 positive blood culture with coa gulase-negative staph. Because of this with known to consult infectious disease team. Also patient remains on normal saline 75 mL/h. Patient coughing mainly dry, he doesn't have chest pain or dyspnea while he is at rest. He is taking in bed most of the time. At baseline he walks normally at home. Appetite is picking up but no abdominal pain and diarrhea is improving he had 2 soft bowel movements yesterday. GI service R following her for elevated bilirubin and liver ultrasound showing hepatomegaly. However bilirubin is coming down to 5.4 on admission down to 1.1 but increased again to 1.9. We'll keep monitoring. Acute kidney injury resolved Labs and vitals are reviewed and looks stable. He has some evidence of mild pancytopenia. The C2 0.5, hemoglobin 7.8, pleasant, 67. He denies chest pain. He had negative cardiac cath about 2 years ago. Objective - Vital Signs Vital signs: Vital Signs Temp 99.2 F 05/23/23 07:11 Pulse 89 05/23/23 08:00 Resp 18 05/23/23 08:00 BP 131/81 05/23/23 07:11 Pulse Ox 98 05/23/23 07:11 FiO2 Intake & Output 05/22/23 05/23/23 05/23/23 18:59 06:59 18:59 Intake Total 420 Output Total 950 Balance -530 Intake: Oral 420 Output: Urine 950 Other: Voiding Method Urinal Urinal Urinal # Voids 4 - Exam -GENERAL: The patient is alert and oriented x3, not in any acute distress. Obese HEENT: Pupils are round and equally reacting to light. EOMI. No scleral icterus. No conjunctival pallor. Normocephalic, atraumatic. No pharyngeal erythema. No thyromegaly. CARDIOVASCULAR: S1 and S2 present. No murmurs, rubs, or gallops. PULMONARY: Chest is clear to auscultation, no wheezing , no crackles. ABDOMEN: Soft, nontender, nondistended, normoactive bowel sounds. No palpable organomegaly. MUSCULOSKELETAL: No joint swelling or deformity. EXTREMITIES: No cyanosis, clubbing, or pedal edema. NEUROLOGICAL: Gross neurological examination did not reveal any focal deficits. SKIN: No rashes. no petechiae. - Labs CBC & Chem 7: 05/23/23 06:36 05/23/23 06:36 Labs: Abnormal Lab Results - Last 24 Hours (Table) 05/22/23 05/22/23 05/23/23 Range/Units 16:33 20:52 06:24 WBC (4.50-10.00) X 10*3/uL RBC (4.40-5.60) X 10*6/uL Hgb (12.0-15.0) d/dL Hct (39.6-50.0) % MCHC (32.0-37.0) d/dL Plt Count (140-440) X 10*3/uL Immature Plt Fraction (1.1-6.1) % Glucose (70-110) mg/dL POC Glucose (mg/dL) 131 H 144 H 126 H (70-110) mg/dL Calcium (8.7-10.3) mg/dL Total Bilirubin (0.3-1.2) mg/dL Alkaline Phosphatase (41-126) U/L Total Protein (6.2-8.2) d/dL Albumin (3.8-4.9) d/dL Albumin/Globulin Ratio (1.60-3.17) Ratio 05/23/23 05/23/23 05/23/23 Range/Units 06:36 06:36 11:24 WBC 2.56 L (4.50-10.00) X 10*3/uL RBC 2.76 L (4.40-5.60) X 10*6/uL Hgb 7.8 L (12.0-15.0) d/dL Hct 24.8 L (39.6-50.0) % MCHC 31.5 L (32.0-37.0) d/dL Plt Count 68 L (140-440) X 10*3/uL Immature Plt Fraction 7.8 H (1.1-6.1) % Glucose 131 H (70-110) mg/dL POC Glucose (mg/dL) 172 H (70-110) mg/dL Calcium 8.1 L (8.7-10.3) mg/dL Total Bilirubin 1.9 H (0.3-1.2) mg/dL Alkaline Phosphatase 222 H (41-126) U/L Total Protein 5.4 L (6.2-8.2) d/dL Albumin 2.5 L (3.8-4.9) d/dL Albumin/Globulin Ratio 0.86 L (1.60-3.17) Ratio Microbiology - Last 24 Hours (Table) 05/19/23 15:30 Blood Culture Gram Stain - Final Blood Blood Culture - Final Coagulase Negative Staph Coagulase Negative Staph#2 05/19/23 15:15 Blood Culture Gram Stain - Final Blood Blood Culture - Final Coagulase Negative Staph Coagulase Negative Staph#2 Assessment and Plan Assessment: Right lower lobe pneumonia Chest sepsis with fever and leukopenia Possible blood culture with coagulase negative staph, could be contamination Deshawn pancytopenia Hepatomegaly with hyperbilirubinemia, improving Acute kidney injury improving history of multiple myeloma Morbid obesity BMI 50 Plan: Continue with ceftriaxone Repeat chest x-ray tomorrow Consults infectious disease team Monitor bilirubin and creatinine. Several consultants on the case including GI, tenter frame operator and hematology/oncology Labs and medication were reviewed.. Continue same treatment. Continue with symptomatic treatment. Resume home medication. Monitor labs and vitals. DVT and GI prophylaxis. Further recommendations as per clinical course of the patient DVT prophylaxis: Subcutaneous heparin GI Prophylaxis: Pepcid PT/OT: Pending Prognosis is guarded
--- NOTE | 2023-05-23 14:27 | P.PN ---
Subjective Patient is seen for follow-up for acute kidney injury prerenal and associated with underlying infection and pneumonia. Currently improving with IV hydration. Overall patient states he is feeling better. Creatinine decreased to 0.8 today. Maintained on IVF. Reports good oral intake. Objective - Vital Signs Vital signs: Vital Signs Temp 98.6 F 05/23/23 12:39 Pulse 86 05/23/23 12:39 Resp 16 05/23/23 12:39 BP 114/65 05/23/23 12:39 Pulse Ox 99 05/23/23 12:39 FiO2 Intake & Output 05/22/23 05/23/23 05/23/23 18:59 06:59 18:59 Intake Total 420 Output Total 950 Balance -530 Intake: Oral 420 Output: Urine 950 Other: Voiding Method Urinal Urinal Urinal # Voids 4 - Exam Patient is awake, comfortable, no acute distress Appears euvolemic Abdomen is soft obese nontender Examination lower extremities shows no significant edema. SAP ADMINISTRATOR exam grossly intact - Labs CBC & Chem 7: 05/23/23 06:36 05/23/23 06:36 Labs: Abnormal Lab Results - Last 24 Hours (Table) 05/22/23 05/22/23 05/23/23 Range/Units 16:33 20:52 06:24 WBC (4.50-10.00) X 10*3/uL RBC (4.40-5.60) X 10*6/uL Hgb (12.0-15.0) d/dL Hct (39.6-50.0) % MCHC (32.0-37.0) d/dL Plt Count (140-440) X 10*3/uL Immature Plt Fraction (1.1-6.1) % Glucose (70-110) mg/dL POC Glucose (mg/dL) 131 H 144 H 126 H (70-110) mg/dL Calcium (8.7-10.3) mg/dL Total Bilirubin (0.3-1.2) mg/dL Alkaline Phosphatase (41-126) U/L Total Protein (6.2-8.2) d/dL Albumin (3.8-4.9) d/dL Albumin/Globulin Ratio (1.60-3.17) Ratio 05/23/23 05/23/23 05/23/23 Range/Units 06:36 06:36 11:24 WBC 2.56 L (4.50-10.00) X 10*3/uL RBC 2.76 L (4.40-5.60) X 10*6/uL Hgb 7.8 L (12.0-15.0) d/dL Hct 24.8 L (39.6-50.0) % MCHC 31.5 L (32.0-37.0) d/dL Plt Count 68 L (140-440) X 10*3/uL Immature Plt Fraction 7.8 H (1.1-6.1) % Glucose 131 H (70-110) mg/dL POC Glucose (mg/dL) 172 H (70-110) mg/dL Calcium 8.1 L (8.7-10.3) mg/dL Total Bilirubin 1.9 H (0.3-1.2) mg/dL Alkaline Phosphatase 222 H (41-126) U/L Total Protein 5.4 L (6.2-8.2) d/dL Albumin 2.5 L (3.8-4.9) d/dL Albumin/Globulin Ratio 0.86 L (1.60-3.17) Ratio Microbiology - Last 24 Hours (Table) 05/19/23 15:30 Blood Culture Gram Stain - Final Blood Blood Culture - Final Coagulase Negative Staph Coagulase Negative Staph#2 05/19/23 15:15 Blood Culture Gram Stain - Final Blood Blood Culture - Final Coagulase Negative Staph Coagulase Negative Staph#2 Assessment and Plan Assessment: 1. Acute kidney injury, nonoliguric ATN secondary to hypotension in the setting of use of NSAIDs. Status post IV fluids. UA shows 1+ protein no blood or cells. CT of the abdomen was negative for any obstructive uropathy. 2. 6 mm right renal calculus noted without obstruction 3. Right mid lung pneumonia 4. Hyperbilirubinemia with evidence of hepatomegaly on CT of the abdomen. No gallstones noted. Hepatitis serologies are negative 5. Hypokalemia associated with decreased intake as well as diarrhea 6. Hyponatremia, hypovolemic, improved 7. Anemia with iron deficiency 8. History of multiple myeloma, details not known 9. Bacteremia with blood cultures growing coagulase-negative staph Plan: Continue IV fluids Continue IV iron Repeat labs in a.m. Accurate I's and O's Avoid nephrotoxic agents Repeat blood cultures
[2023-05-23] MEDS ORDERED: AZITHROMYCIN 500 MG in SODIUM CHLORIDE 0.9% 250 ML IVPB STA (15:15)
[2023-05-23 16:49] LABS: Glucose,Whole Blood 159 mg/dL (70-110)
[2023-05-23 20:21] LABS: Glucose,Whole Blood 134 mg/dL (70-110)
[2023-05-23] MEDS: traZODone HCL 50 MG TAB PO SCH (20:53)
[2023-05-23] MEDS: HEPARIN SODIUM,PORCINE/PF 5,000 UNIT/0.5 ML SYRINGE SQ SCH (20:54)
[2023-05-23] MEDS: FAMOTIDINE 20 MG/2 ML VIAL IV SCH (22:22)
[2023-05-24 06:24] LABS: Glucose,Whole Blood 134 mg/dL (70-110)
[2023-05-24] MEDS: INSULIN ASPART (NovoLOG) 100 UNIT/ML VIAL SQ SCH ×4 (06:29→21:44)
[2023-05-24] MEDS: PANTOPRAZOLE 40 MG TABLET PO SCH (06:41)
--- NOTE | 2023-05-24 07:12 | P.CONS ---
History of Present Illness - Reason for Consult Consult date: 05/23/23 Persistent fever possible bacteremia Requesting physician: Bernabe E Sheet - Chief Complaint Shortness of breath and cough x few days - History of Present Illness Patient is a 57-year-old male presenting to the hospital about a week ago for evaluation of weakness sweating and diaphoresis apparently has been going on for few days before presentation to the hospital patient did have a CT of the chest abdominal pelvis on admission with evidence of right lower lobe airspace consolidation concerning for pneumonia colonic diverticulosis with no diverticulitis nonobstructive right renal calculi patient has been evaluated by GI oncology and nephrology services and is currently on Rocephin 2 g daily patient did spike a fever of 101.6 F on 05/20/2023 and he did spike a low-grade fever 100 F after midnight that has prompted this infectious disease consultation, patient is currently not hypoxic or need for supplemental oxygen patient did have a normal white count admission however is leukopenic with a white count of 12.56 he did have a negative UA serum alcohol was less than 10 hepatitis panel was negative he did have a positive blood culture with coagulase-negative staph x2 sets which seem to have been distributed possible contamination, at the time my evaluation the patient complaining of mostly fever with rigors and chills has been complaining of feeling weak denies any headache or URI symptoms no chest pain or shortness of breath he did have a cough mild to moderate intensity but unable to bring up any sputum but denies having any nausea no vomiting did mention he did have significant diarrhea by the time he presented to the hospital no blood or mucus in the stool Review of Systems Positive point and negatives has been mentioned in the HPI, complete review of systems was performed and all other systems are negative Past Medical History Past Medical History: Cancer, Diabetes Mellitus, Hypertension, Myocardial Infarction ([place]) Additional Past Medical History / Comment(s): gout, chronic back/hip pain, multiple myeloma Last Myocardial Infarction Date:: 02/04/21 History of Any Multi-Drug Resistant Organisms: None Reported Past Surgical History: Orthopedic Surgery Additional Past Surgical History / Comment(s): thymus gland removal, HIP SURGERY., lap band by boutt Past Anesthesia/Blood Transfusion Reactions: No Reported Reaction Past Psychological History: Depression Smoking Status: Former smoker Past Alcohol Use History: None Reported Past Drug Use History: None Reported Medications and Allergies Home Medications Medication Instructions Recorded Confirmed Type PARoxetine HCL [Paxil] 40 mg PO DAILY 04/29/14 05/19/23 History HYDROcodone/APAP 10-325MG [[place] 1 tab PO QID PRN 08/24/16 05/19/23 History 10-325] Acyclovir 400 mg PO BID 01/03/21 05/19/23 History Omeprazole 40 mg PO DAILY 02/04/21 05/19/23 History amLODIPine [Norvasc] 10 mg PO DAILY 03/14/21 05/19/23 History Ibuprofen [Motrin] 800 mg PO Q8H PRN 10/07/21 05/19/23 History Aspirin 81 mg PO DAILY 05/19/23 05/19/23 History Lenalidomide [Revlimid] 5 mg PO DAILY 05/19/23 05/19/23 History Metoprolol Tartrate [Lopressor] 12.5 mg PO BID 05/19/23 05/19/23 History traZODone HCL [Desyrel] 50 mg PO HS 05/19/23 05/19/23 History Allergies Allergy/AdvReac Type Severity Reaction Status Date / Time hydromorphone HCl AdvReac Hallucinati Verified 05/19/23 17:27 [From Dilaudid] ons meperidine HCl [From Demerol] AdvReac Hallucinati Verified 05/19/23 17:27 ons Physical Exam Vitals: Vital Signs Temp Pulse Resp BP Pulse Ox 05/23/23 12:39 98.6 F 86 16 114/65 99 05/23/23 08:00 89 18 05/23/23 07:11 99.2 F 89 18 131/81 98 05/23/23 02:00 99.8 F H 17 139/78 96 05/23/23 00:33 100.1 F H 05/22/23 20:00 99.8 F H 16 126/78 98 Intake and Output 05/22/23 05/23/23 05/23/23 22:59 06:59 14:59 Intake Total 420 Output Total 950 Balance -530 Intake: Oral 420 Output: Urine 950 Other: Voiding Method Urinal Urinal # Voids 4 GENERAL DESCRIPTION: Middle-aged male lying in bed, no distress. No tachypnea or accessory muscle of respiration use. HEENT: Shows Pallor , no scleral icterus. Oral mucous membrane is dry. No pharyngeal erythema or thrush NECK: Trachea central, no thyromegaly. LUNGS: Unlabored breathing. Decreased breath sound at the base HEART: S1, S2, regular rate and rhythm. No loud murmur ABDOMEN: Soft, no tenderness , guarding or rigidity, no organomegaly EXTREMITIES: No edema of feet. SKIN: No rash, no masses palpable. NEUROLOGICAL: The patient is awake, alert, oriented x3, mood and affect normal. Results CBC & Chem 7: 05/25/23 06:54 05/24/23 08:21 Labs: Abnormal Lab Results - Last 24 Hours (Table) 05/22/23 05/22/23 05/23/23 Range/Units 16:33 20:52 06:24 WBC (4.50-10.00) X 10*3/uL RBC (4.40-5.60) X 10*6/uL Hgb (12.0-15.0) d/dL Hct (39.6-50.0) % MCHC (32.0-37.0) d/dL Plt Count (140-440) X 10*3/uL Immature Plt Fraction (1.1-6.1) % Glucose (70-110) mg/dL POC Glucose (mg/dL) 131 H 144 H 126 H (70-110) mg/dL Calcium (8.7-10.3) mg/dL Total Bilirubin (0.3-1.2) mg/dL Alkaline Phosphatase (41-126) U/L Total Protein (6.2-8.2) d/dL Albumin (3.8-4.9) d/dL Albumin/Globulin Ratio (1.60-3.17) Ratio 05/23/23 05/23/23 05/23/23 Range/Units 06:36 06:36 11:24 WBC 2.56 L (4.50-10.00) X 10*3/uL RBC 2.76 L (4.40-5.60) X 10*6/uL Hgb 7.8 L (12.0-15.0) d/dL Hct 24.8 L (39.6-50.0) % MCHC 31.5 L (32.0-37.0) d/dL Plt Count 68 L (140-440) X 10*3/uL Immature Plt Fraction 7.8 H (1.1-6.1) % Glucose 131 H (70-110) mg/dL POC Glucose (mg/dL) 172 H (70-110) mg/dL Calcium 8.1 L (8.7-10.3) mg/dL Total Bilirubin 1.9 H (0.3-1.2) mg/dL Alkaline Phosphatase 222 H (41-126) U/L Total Protein 5.4 L (6.2-8.2) d/dL Albumin 2.5 L (3.8-4.9) d/dL Albumin/Globulin Ratio 0.86 L (1.60-3.17) Ratio Microbiology - Last 24 Hours (Table) 05/19/23 15:30 Blood Culture Gram Stain - Final Blood Blood Culture - Final Coagulase Negative Staph Coagulase Negative Staph#2 05/19/23 15:15 Blood Culture Gram Stain - Final Blood Blood Culture - Final Coagulase Negative Staph Coagulase Negative Staph#2 Assessment and Plan (1) Bacterial pneumonia Current Visit: Yes Status: Acute Priority: High Code(s): J15.9 - UNSPECIFIED BACTERIAL PNEUMONIA SNOMED Code(s): 72772069 Plan: 1patient present to hospital with weakness diarrhea he did have rigors and chills also with a cough and right lower lobe infiltrate concerning for pneumonia possible atypical and may not be covered with the Rocephin the patient is on possibly responsible for his persistent fever. 2we will check a urine for Legionella antigen check a procalcitonin and CRP. 3repeated chest x-ray PA and lateral in the a.m. for follow-up of pneumonia. 4continue with Rocephin however and Zithromax. We will follow on clinical condition and cultures to further adjust medication if needed Thank you for this consultation we will follow the patient along with you Dictation was produced using [employer] dictation software. please excuse any grammatical, word or spelling errors. Time with Patient: Greater than 30
--- NOTE | 2023-05-24 07:19 | XR ---
EXAMINATION TYPE: XR chest 1V DATE OF EXAM: 05/24/2023 7:02 AM COMPARISON: Chest radiographs from 05/19/2023, CT chest abdomen pelvis 05/19/2023 TECHNIQUE: XR chest 1V Frontal view of the chest. CLINICAL INDICATION:Male, 57 years old with history of sob; FINDINGS: Lungs/Pleura: Patchy right basilar airspace opacity redemonstrated. No pleural effusion or pneumothor ax. Pulmonary vascularity: Unremarkable. Heart/mediastinum: Cardiomediastinal silhouette is enlarged and stable. Musculoskeletal: No acute osseous pathology. Midline sternotomy wires are noted and stable. IMPRESSION: Patchy right basilar airspace opacity redemonstrated concerning for pneumonia.
[2023-05-24] MEDS: METOPROLOL TARTRATE 12.5 MG TAB PO SCH ×2 (08:30→21:44)
[2023-05-24] MEDS: PARoxetine 20 MG TAB PO SCH (08:30)
[2023-05-24] MEDS: HEPARIN SODIUM,PORCINE/PF 5,000 UNIT/0.5 ML SYRINGE SQ SCH ×2 (08:30→21:54)
[2023-05-24] MEDS: amLODIPine 10 MG TAB PO SCH (08:30)
[2023-05-24] MEDS: ASPIRIN 81 MG PO SCH (08:30)
[2023-05-24] MEDS: PREGABALIN 50 MG CAP PO SCH ×3 (08:30→21:44)
[2023-05-24] MEDS: ACYCLOVIR 200 MG CAP PO SCH ×2 (08:30→21:44)
[2023-05-24] MEDS: FAMOTIDINE 20 MG/2 ML VIAL IV SCH ×2 (08:31→21:18)
[2023-05-24] MEDS: AZITHROMYCIN 250 MG TAB PO SCH (08:31)
[2023-05-24] MEDS: SODIUM CHLORIDE 0.9% 1,000 ML IV SCH ×2 (08:44→16:35)
[2023-05-24 09:03] LABS: Basophils % (A) 1 %; Eosinophils % (A) 2 %; HGB 8.3 gm/dL (13.0-17.5); Hypochromasia Moderate; Lymphocytes # (A) 0.6 k/uL (1.0-4.8); Lymphocytes % (A) 26 %; MCH 29.1 pg (25.0-35.0); MCHC 31.7 g/dL (31.0-37.0); MCV 91.5 fL (80.0-100.0); Mean Platelet Volume 9.8; Monocytes # (A) 0.2 k/uL (0-1.0); Monocytes % (A) 9 %; Neutrophils # (A) 1.5 k/uL (1.3-7.7); Neutrophils % (A) 60 %; RBC 2.84 m/uL (4.30-5.90); RDW 14.9 % (11.5-15.5); WBC 2.5 k/uL (3.8-10.6)
[2023-05-24 09:06] LABS: ALT 23 U/L (4-49); AST 24 U/L (17-59); African American GFR (CKD) >90 (>60 ml/min/1.73 sqM); Albumin 2.5 g/dL (3.5-5.0); Albumin/Globulin Ratio 0.8; Alkaline Phosphatase 256 U/L (38-126); Anion Gap 7 mmol/L; Bilirubin,Unconjugated 0.6 mg/dL (0.0-1.1); Blood Urea Nitrogen 15 mg/dL (9-20); Calcium 7.7 mg/dL (8.4-10.2); Carbon Dioxide 25 mmol/L (22-30); Chloride 101 mmol/L (98-107); Globulin 3.1 g/dL; Glucose 161 mg/dL (74-99); Non-African American GFR(CKD) >90 (>60 ml/min/1.73 sqM); Potassium 3.6 mmol/L (3.5-5.1); Sodium 133 mmol/L (137-145); Total Bilirubin 1.9 mg/dL (0.2-1.3); Total Protein 5.6 g/dL (6.3-8.2)
[2023-05-24 09:14] LABS: Platelet Count 74 k/uL (150-450)
[2023-05-24 12:13] LABS: Glucose,Whole Blood 146 mg/dL (70-110)
--- NOTE | 2023-05-24 15:11 | P.PN ---
Subjective Covering Dr. Pennington over the weekend This is a pleasant 57 years old male with multiple medical problems presents with diarrhea and generalized weakness initially read patient was found to have right lower lobe pneumonia and he was treated with ceftriaxone. However he still spiking fever 100.1 today. And he has 2 positive blood culture with coa gulase-negative staph. Because of this with known to consult infectious disease team. Also patient remains on normal saline 75 mL/h. Patient coughing mainly dry, he doesn't have chest pain or dyspnea while he is at rest. He is taking in bed most of the time. At baseline he walks normally at home. Appetite is picking up but no abdominal pain and diarrhea is improving he had 2 soft bowel movements yesterday. GI service R following her for elevated bilirubin and liver ultrasound showing hepatomegaly. However bilirubin is coming down to 5.4 on admission down to 1.1 but increased again to 1.9. We'll keep monitoring. Acute kidney injury resolved Labs and vitals are reviewed and looks stable. He has some evidence of mild pancytopenia. The C2 0.5, hemoglobin 7.8, pleasant, 67. He denies chest pain. He had negative cardiac cath about 2 years ago. 05/24/2023 Patient this morning is awake. No significant dyspnea or chest pain while at rest. He has been called. Patient has poor appetite. Patient is seen in bed most of the time. No abdominal pain and abdomen is soft. No diarrhea. Generally weak. Complaining of from left ankle pain and stating that related to his gout Continuous infection on Zithromax and normal saline 75 mm per hour Objective - Vital Signs Vital signs: Vital Signs Temp 99.1 F 05/24/23 07:33 Pulse 75 05/24/23 07:33 Resp 18 05/24/23 10:36 BP 157/67 05/24/23 07:33 Pulse Ox 99 05/24/23 07:33 FiO2 Intake & Output 05/23/23 05/24/23 05/24/23 18:59 06:59 18:59 Intake Total 180 125 Output Total 825 0778 600 Balance -914 -7751 -261 Intake: Oral 180 125 Output: Urine 829 0999 600 Other: Voiding Method Urinal Urinal Urinal - Exam -GENERAL: The patient is alert and oriented x3, not in any acute distress. Obese HEENT: Pupils are round and equally reacting to light. EOMI. No scleral icterus. No conjunctival pallor. Normocephalic, atraumatic. No pharyngeal erythema. No thyromegaly. CARDIOVASCULAR: S1 and S2 present. No murmurs, rubs, or gallops. PULMONARY: Chest is clear to auscultation, no wheezing , no crackles. ABDOMEN: Soft, nontender, nondistended, normoactive bowel sounds. No palpable organomegaly. MUSCULOSKELETAL: No joint swelling or deformity. EXTREMITIES: No cyanosis, clubbing, or pedal edema. NEUROLOGICAL: Gross neurological examination did not reveal any focal deficits. SKIN: No rashes. no petechiae. - Labs CBC & Chem 7: 05/24/23 08:21 05/24/23 08:21 Labs: Abnormal Lab Results - Last 24 Hours (Table) 05/23/23 05/23/23 05/24/23 Range/Units 16:47 20:19 06:21 WBC (3.8-10.6) k/uL RBC (4.30-5.90) m/uL Hgb (13.0-17.5) gm/dL Hct (39.0-53.0) % Plt Count (150-450) k/uL Lymphocytes # (1.0-4.8) k/uL Sodium (137-145) mmol/L Glucose (74-99) mg/dL POC Glucose (mg/dL) 159 H 134 H 134 H (70-110) mg/dL Calcium (8.4-10.2) mg/dL Total Bilirubin (0.2-1.3) mg/dL Alkaline Phosphatase (38-126) U/L Total Protein (6.3-8.2) g/dL Albumin (3.5-5.0) g/dL Procalcitonin (0.02-0.09) ng/mL 05/24/23 05/24/23 05/24/23 Range/Units 08:21 08:21 08:21 WBC 2.5 L (3.8-10.6) k/uL RBC 2.84 L (4.30-5.90) m/uL Hgb 8.3 L (13.0-17.5) gm/dL Hct 26.0 L (39.0-53.0) % Plt Count 74 L (150-450) k/uL Lymphocytes # 0.6 L (1.0-4.8) k/uL Sodium 133 L (137-145) mmol/L Glucose 161 H (74-99) mg/dL POC Glucose (mg/dL) (70-110) mg/dL Calcium 7.7 L (8.4-10.2) mg/dL Total Bilirubin 1.9 H (0.2-1.3) mg/dL Alkaline Phosphatase 256 H (38-126) U/L Total Protein 5.6 L (6.3-8.2) g/dL Albumin 2.5 L (3.5-5.0) g/dL Procalcitonin 0.67 H (0.02-0.09) ng/mL 05/24/23 Range/Units 12:12 WBC (3.8-10.6) k/uL RBC (4.30-5.90) m/uL Hgb (13.0-17.5) gm/dL Hct (39.0-53.0) % Plt Count (150-450) k/uL Lymphocytes # (1.0-4.8) k/uL Sodium (137-145) mmol/L Glucose (74-99) mg/dL POC Glucose (mg/dL) 146 H (70-110) mg/dL Calcium (8.4-10.2) mg/dL Total Bilirubin (0.2-1.3) mg/dL Alkaline Phosphatase (38-126) U/L Total Protein (6.3-8.2) g/dL Albumin (3.5-5.0) g/dL Procalcitonin (0.02-0.09) ng/mL Assessment and Plan Assessment: Right lower lobe pneumonia sepsis with fever and leukopenia Possible left ankle gout attack Possible blood culture with coagulase negative staph, could be contamination Deshawn pancytopenia Hepatomegaly with hyperbilirubinemia, improving Acute kidney injury improving history of multiple myeloma Morbid obesity BMI 50 Plan: Continue with ceftriaxone, Zithromax Consults infectious disease team Monitor bilirubin and creatinine. Add colchicine for possible gout attack. Check uric acid Several consultants on the case including GI, sales representative leather goods and hematology/oncology Labs and medication were reviewed.. Continue same treatment. Continue with symptomatic treatment. Resume home medication. Monitor labs and vitals. DVT and GI prophylaxis. Further recommendations as per clinical course of the patient DVT prophylaxis: Subcutaneous heparin GI Prophylaxis: Pepcid PT/OT: Pending Prognosis is guarded
--- NOTE | 2023-05-24 16:33 | P.PN ---
Subjective Progress Note Date: 05/24/23 Principal diagnosis: Fever/pneumonia Patient is a 57-year-old male presenting to the hospital with diarrhea he did have a fever and evidence of right lower lobe pneumonia. On today's evaluation that is 05/24/2023, the patient denies having any fever or any chills, the patient is feeling better today he is breathing comfortably on room air, the patient cough is decreased intensity mostly dry in nature denies having any nausea no vomiting no abdominal pain and no further diarrhea Objective - Vital Signs Vital signs: Vital Signs Temp 99.1 F 05/24/23 07:33 Pulse 75 05/24/23 07:33 Resp 18 05/24/23 10:36 BP 157/67 05/24/23 07:33 Pulse Ox 99 05/24/23 07:33 FiO2 Intake & Output 05/23/23 05/24/23 05/24/23 18:59 06:59 18:59 Intake Total 180 375 Output Total 825 1080 600 Balance -645 -4513 -225 Intake: Oral 180 375 Output: Urine 825 1080 600 Other: Voiding Method Urinal Urinal Urinal - Exam GENERAL DESCRIPTION: Middle-aged male lying in bed in no distress RESPIRATORY SYSTEM: Unlabored breathing , decreased breath sounds at bases HEART: S1 S2 regular rate and rhythm , ABDOMEN: Soft , no tenderness EXTREMITIES: No edema feet - Labs CBC & Chem 7: 05/24/23 08:21 05/24/23 08:21 Labs: Abnormal Lab Results - Last 24 Hours (Table) 05/23/23 05/23/23 05/24/23 Range/Units 16:47 20:19 06:21 WBC (3.8-10.6) k/uL RBC (4.30-5.90) m/uL Hgb (13.0-17.5) gm/dL Hct (39.0-53.0) % Plt Count (150-450) k/uL Lymphocytes # (1.0-4.8) k/uL Sodium (137-145) mmol/L Glucose (74-99) mg/dL POC Glucose (mg/dL) 159 H 134 H 134 H (70-110) mg/dL Calcium (8.4-10.2) mg/dL Total Bilirubin (0.2-1.3) mg/dL Alkaline Phosphatase (38-126) U/L Total Protein (6.3-8.2) g/dL Albumin (3.5-5.0) g/dL Procalcitonin (0.02-0.09) ng/mL 05/24/23 05/24/23 05/24/23 Range/Units 08:21 08:21 08:21 WBC 2.5 L (3.8-10.6) k/uL RBC 2.84 L (4.30-5.90) m/uL Hgb 8.3 L (13.0-17.5) gm/dL Hct 26.0 L (39.0-53.0) % Plt Count 74 L (150-450) k/uL Lymphocytes # 0.6 L (1.0-4.8) k/uL Sodium 133 L (137-145) mmol/L Glucose 161 H (74-99) mg/dL POC Glucose (mg/dL) (70-110) mg/dL Calcium 7.7 L (8.4-10.2) mg/dL Total Bilirubin 1.9 H (0.2-1.3) mg/dL Alkaline Phosphatase 256 H (38-126) U/L Total Protein 5.6 L (6.3-8.2) g/dL Albumin 2.5 L (3.5-5.0) g/dL Procalcitonin 0.67 H (0.02-0.09) ng/mL 05/24/23 Range/Units 12:12 WBC (3.8-10.6) k/uL RBC (4.30-5.90) m/uL Hgb (13.0-17.5) gm/dL Hct (39.0-53.0) % Plt Count (150-450) k/uL Lymphocytes # (1.0-4.8) k/uL Sodium (137-145) mmol/L Glucose (74-99) mg/dL POC Glucose (mg/dL) 146 H (70-110) mg/dL Calcium (8.4-10.2) mg/dL Total Bilirubin (0.2-1.3) mg/dL Alkaline Phosphatase (38-126) U/L Total Protein (6.3-8.2) g/dL Albumin (3.5-5.0) g/dL Procalcitonin (0.02-0.09) ng/mL Assessment and Plan (1) Pneumonia Current Visit: Yes Status: Acute Code(s): J18.9 - PNEUMONIA, UNSPECIFIED ORGANISM SNOMED Code(s): 790810261 Plan: 1patient present to hospital with weakness diarrhea he did have rigors and chills also with a cough and right lower lobe infiltrate concerning for pneumonia possible atypical and may not be covered with the Rocephin the patient is on possibly responsible for his persistent fever. 2 urine for Legionella antigen came back negative, procalcitonin is 0.67 and CRP pending. 3repeat chest x-ray right lower lobe pneumonia. 4patient seemed to have shown Clinical improvement and will continue with Rocephin and Zithromax, finishing therapy with oral Levaquin Dictation was produced using [employer] dictation software. please excuse any grammatical, word or spelling errors. Time with Patient: Less than 30
[2023-05-24] MEDS: COLCHICINE 0.6 MG EACH PO SCH ×2 (16:35→23:18)
[2023-05-24 16:50] LABS: Glucose,Whole Blood 159 mg/dL (70-110)
[2023-05-24 20:50] LABS: Glucose,Whole Blood 161 mg/dL (70-110)
[2023-05-24] MEDS: traZODone HCL 50 MG TAB PO SCH (21:44)
[2023-05-25] MEDS: SODIUM CHLORIDE 0.9% 1,000 ML IV SCH ×2 (05:52→21:54)
[2023-05-25 06:07] LABS: Glucose,Whole Blood 132 mg/dL (70-110)
[2023-05-25] MEDS: INSULIN ASPART (NovoLOG) 100 UNIT/ML VIAL SQ SCH ×4 (06:23→21:11)
[2023-05-25] MEDS: PANTOPRAZOLE 40 MG TABLET PO SCH (06:48)
[2023-05-25] MEDS: HYDROcodone/APAP 10-325MG 1 EACH TAB PO PRN (06:52)
[2023-05-25] MEDS: FAMOTIDINE 20 MG/2 ML VIAL IV SCH ×2 (10:04→21:11)
[2023-05-25] MEDS: ACYCLOVIR 200 MG CAP PO SCH ×2 (10:05→21:51)
[2023-05-25] MEDS: amLODIPine 10 MG TAB PO SCH ×2 (10:05→10:07)
[2023-05-25] MEDS: PREGABALIN 50 MG CAP PO SCH ×3 (10:05→21:11)
[2023-05-25] MEDS: ASPIRIN 81 MG PO SCH (10:05)
[2023-05-25] MEDS: COLCHICINE 0.6 MG EACH PO SCH ×2 (10:05→21:51)
[2023-05-25] MEDS: PARoxetine 20 MG TAB PO SCH (10:05)
[2023-05-25] MEDS: METOPROLOL TARTRATE 12.5 MG TAB PO SCH ×2 (10:05→21:12)
[2023-05-25] MEDS: AZITHROMYCIN 250 MG TAB PO SCH (10:06)
[2023-05-25] MEDS: HEPARIN SODIUM,PORCINE/PF 5,000 UNIT/0.5 ML SYRINGE SQ SCH ×2 (10:15→21:10)
[2023-05-25 11:24] LABS: Basophils # (A) 0.06 X 10*3/uL (0.00-0.10); Basophils % (A) 2.2 %; Eosinophils # (A) 0.05 X 10*3/uL (0.04-0.35); Eosinophils % (A) 1.9 %; HCT 24.3 % (39.6-50.0); HGB 7.5 d/dL (12.0-15.0); Lymphocytes # (A) 0.85 X 10*3/uL (0.90-5.00); Lymphocytes % (A) 31.8 %; MCH 27.9 pg (27.0-32.0); MCHC 30.9 d/dL (32.0-37.0); MCV 90.3 FL (80.0-97.0); Mean Platelet Volume 13.6 FL (9.5-12.2); Monocytes # (A) 0.23 X 10*3/uL (0.20-1.00); Monocytes % (A) 8.6 %; NRBC Per 100 WBC 0 X 10*3/uL (0.00-0.01); Neutrophils # (A) 1.47 X 10*3/uL (1.80-7.70); Neutrophils % (A) 55.1 %; Platelet Count 84 X 10*3/uL (140-440); RBC 2.69 X 10*6/uL (4.40-5.60); RDW 13.3 % (11.5-14.5); WBC 2.67 X 10*3/uL (4.50-10.00)
[2023-05-25 11:35] LABS: Glucose,Whole Blood 164 mg/dL (70-110)
[2023-05-25 16:41] LABS: Glucose,Whole Blood 157 mg/dL (70-110)
--- NOTE | 2023-05-25 20:29 | P.PN ---
Subjective Covering Dr. Pennington over the weekend This is a pleasant 57 years old male with multiple medical problems presents with diarrhea and generalized weakness initially read patient was found to have right lower lobe pneumonia and he was treated with ceftriaxone. However he still spiking fever 100.1 today. And he has 2 positive blood culture with coa gulase-negative staph. Because of this with known to consult infectious disease team. Also patient remains on normal saline 75 mL/h. Patient coughing mainly dry, he doesn't have chest pain or dyspnea while he is at rest. He is taking in bed most of the time. At baseline he walks normally at home. Appetite is picking up but no abdominal pain and diarrhea is improving he had 2 soft bowel movements yesterday. GI service R following her for elevated bilirubin and liver ultrasound showing hepatomegaly. However bilirubin is coming down to 5.4 on admission down to 1.1 but increased again to 1.9. We'll keep monitoring. Acute kidney injury resolved Labs and vitals are reviewed and looks stable. He has some evidence of mild pancytopenia. The C2 0.5, hemoglobin 7.8, pleasant, 67. He denies chest pain. He had negative cardiac cath about 2 years ago. 05/24/2023 Patient this morning is awake. No significant dyspnea or chest pain while at rest. He has been called. Patient has poor appetite. Patient is seen in bed most of the time. No abdominal pain and abdomen is soft. No diarrhea. Generally weak. Complaining of from left ankle pain and stating that related to his gout Continuous infection on Zithromax and normal saline 75 mm per hour 05/25/2024 pt is clinically improving and he denies chest pain or dyspnea, no exertional dyspnea when he walks to the bathroom . pt is on zithromax and rocephin for RLL pna, and might be dischared on levaquin when stable he is complaining from diarrhea and c diff is requested pt states his ankle pain is chronic from gout pt is eager to be discharged home, possible dc in 24-48 hours Objective - Vital Signs Vital signs: Vital Signs Temp 98.7 F 05/25/23 14:00 Pulse 87 05/25/23 14:00 Resp 18 05/25/23 14:00 BP 116/81 05/25/23 14:00 Pulse Ox 99 05/25/23 14:00 FiO2 Intake & Output 05/24/23 05/25/23 05/25/23 18:59 06:59 18:59 Intake Total 575 1080 Output Total 600 390 700 Balance -25 -390 380 Weight 158.757 kg Intake: Oral 575 1080 Output: Urine 600 390 700 Other: Voiding Method Urinal Urinal Urinal # Voids 900 2 - Exam -GENERAL: The patient is alert and oriented x3, not in any acute distress. Obese HEENT: Pupils are round and equally reacting to light. EOMI. No scleral icterus. No conjunctival pallor. Normocephalic, atraumatic. No pharyngeal erythema. No thyromegaly. CARDIOVASCULAR: S1 and S2 present. No murmurs, rubs, or gallops. PULMONARY: Chest is clear to auscultation, no wheezing , no crackles. ABDOMEN: Soft, nontender, nondistended, normoactive bowel sounds. No palpable organomegaly. MUSCULOSKELETAL: No joint swelling or deformity. EXTREMITIES: No cyanosis, clubbing, or pedal edema. NEUROLOGICAL: Gross neurological examination did not reveal any focal deficits. SKIN: No rashes. no petechiae. - Labs CBC & Chem 7: 05/25/23 06:54 05/24/23 08:21 Labs: Abnormal Lab Results - Last 24 Hours (Table) 05/24/23 05/25/23 05/25/23 Range/Units 20:47 06:05 06:54 WBC (4.50-10.00) X 10*3/uL RBC (4.40-5.60) X 10*6/uL Hgb (12.0-15.0) d/dL Hct (39.6-50.0) % MCHC (32.0-37.0) d/dL Plt Count (140-440) X 10*3/uL MPV (9.5-12.2) FL Neutrophils # (1.80-7.70) X 10*3/uL Lymphocytes # (0.90-5.00) X 10*3/uL POC Glucose (mg/dL) 161 H 132 H (70-110) mg/dL Uric Acid 3.2 L (3.7-8.7) mg/dL 05/25/23 05/25/23 05/25/23 Range/Units 06:54 11:31 16:40 WBC 2.67 L (4.50-10.00) X 10*3/uL RBC 2.69 L (4.40-5.60) X 10*6/uL Hgb 7.5 L (12.0-15.0) d/dL Hct 24.3 L (39.6-50.0) % MCHC 30.9 L (32.0-37.0) d/dL Plt Count 84 L (140-440) X 10*3/uL MPV 13.6 H (9.5-12.2) FL Neutrophils # 1.47 L (1.80-7.70) X 10*3/uL Lymphocytes # 0.85 L (0.90-5.00) X 10*3/uL POC Glucose (mg/dL) 164 H 157 H (70-110) mg/dL Uric Acid (3.7-8.7) mg/dL Microbiology - Last 24 Hours (Table) 05/23/23 14:57 Blood Culture - Preliminary Blood Assessment and Plan Assessment: Right lower lobe pneumonia sepsis with fever and leukopenia Possible left ankle gout attack Possible blood culture with coagulase negative staph, could be contamination Deshawn pancytopenia Hepatomegaly with hyperbilirubinemia, improving Acute kidney injury improving history of multiple myeloma Morbid obesity BMI 50 Plan: Continue with ceftriaxone, Zithromax Consults infectious disease team Monitor bilirubin and creatinine. Add colchicine for possible gout attack. Check uric acid Several consultants on the case including GI, farm marketer and hematology/oncology Labs and medication were reviewed.. Continue same treatment. Continue with sym ptomatic treatment. Resume home medication. Monitor labs and vitals. DVT and GI prophylaxis. Further recommendations as per clinical course of the patient DVT prophylaxis: Subcutaneous heparin GI Prophylaxis: Pepcid PT/OT: Pending Prognosis is guarded
[2023-05-25 20:34] LABS: Glucose,Whole Blood 185 mg/dL (70-110)
[2023-05-25] MEDS: traZODone HCL 50 MG TAB PO SCH (21:11)
[2023-05-26 05:31] LABS: Glucose,Whole Blood 126 mg/dL (70-110)
[2023-05-26] MEDS: SODIUM CHLORIDE 0.9% 1,000 ML IV SCH (06:12)
[2023-05-26] MEDS: INSULIN ASPART (NovoLOG) 100 UNIT/ML VIAL SQ SCH ×2 (06:28→11:44)
[2023-05-26] MEDS: PANTOPRAZOLE 40 MG TABLET PO SCH (06:30)
--- NOTE | 2023-05-26 07:52 | P.PN ---
Subjective Progress Note Date: 05/25/23 Principal diagnosis: Fever/pneumonia Patient is a 57-year-old male presenting to the hospital with diarrhea he did have a fever and evidence of right lower lobe pneumonia. On today's evaluation that is 05/25/2023, the patient remains to be afebrile, the patient is breathing comfortably on room air, the patient cough is decreased intensity and not bringing up any sputum, the patient denies having any nausea no vomiting no abdominal pain still having some diarrhea Objective - Vital Signs Vital signs: Vital Signs Temp 99.2 F 05/25/23 07:08 Pulse 75 05/25/23 08:00 Resp 17 05/25/23 08:00 BP 100/67 05/25/23 07:08 Pulse Ox 99 05/25/23 07:08 FiO2 Intake & Output 05/24/23 05/25/23 05/25/23 18:59 06:59 18:59 Intake Total 575 Output Total 600 390 300 Balance -25 -390 -300 Intake: Oral 575 Output: Urine 600 390 300 Other: Voiding Method Urinal Urinal Urinal # Voids 900 - Exam GENERAL DESCRIPTION: Middle-aged male lying in bed in no distress RESPIRATORY SYSTEM: Unlabored breathing , decreased breath sounds at bases HEART: S1 S2 regular rate and rhythm , ABDOMEN: Soft , no tenderness EXTREMITIES: No edema feet - Labs CBC & Chem 7: 05/25/23 06:54 05/24/23 08:21 Labs: Abnormal Lab Results - Last 24 Hours (Table) 05/24/23 05/24/23 05/24/23 Range/Units 08:21 16:49 20:47 WBC (4.50-10.00) X 10*3/uL RBC (4.40-5.60) X 10*6/uL Hgb (12.0-15.0) d/dL Hct (39.6-50.0) % MCHC (32.0-37.0) d/dL Plt Count (140-440) X 10*3/uL MPV (9.5-12.2) FL Neutrophils # (1.80-7.70) X 10*3/uL Lymphocytes # (0.90-5.00) X 10*3/uL POC Glucose (mg/dL) 159 H 161 H (70-110) mg/dL Uric Acid (3.7-8.7) mg/dL Procalcitonin 0.67 H (0.02-0.09) ng/mL 05/25/23 05/25/23 05/25/23 Range/Units 06:05 06:54 06:54 WBC 2.67 L (4.50-10.00) X 10*3/uL RBC 2.69 L (4.40-5.60) X 10*6/uL Hgb 7.5 L (12.0-15.0) d/dL Hct 24.3 L (39.6-50.0) % MCHC 30.9 L (32.0-37.0) d/dL Plt Count 84 L (140-440) X 10*3/uL MPV 13.6 H (9.5-12.2) FL Neutrophils # 1.47 L (1.80-7.70) X 10*3/uL Lymphocytes # 0.85 L (0.90-5.00) X 10*3/uL POC Glucose (mg/dL) 132 H (70-110) mg/dL Uric Acid 3.2 L (3.7-8.7) mg/dL Procalcitonin (0.02-0.09) ng/mL 05/25/23 Range/Units 11:31 WBC (4.50-10.00) X 10*3/uL RBC (4.40-5.60) X 10*6/uL Hgb (12.0-15.0) d/dL Hct (39.6-50.0) % MCHC (32.0-37.0) d/dL Plt Count (140-440) X 10*3/uL MPV (9.5-12.2) FL Neutrophils # (1.80-7.70) X 10*3/uL Lymphocytes # (0.90-5.00) X 10*3/uL POC Glucose (mg/dL) 164 H (70-110) mg/dL Uric Acid (3.7-8.7) mg/dL Procalcitonin (0.02-0.09) ng/mL Microbiology - Last 24 Hours (Table) 05/23/23 14:57 Blood Culture - Preliminary Blood Assessment and Plan (1) Pneumonia Current Visit: Yes Status: Acute Code(s): J18.9 - PNEUMONIA, UNSPECIFIED ORGANISM SNOMED Code(s): 710239069 Plan: 1patient present to hospital with weakness diarrhea he did have rigors and chills also with a cough and right lower lobe infiltrate concerning for pneumonia possible atypical and may not be covered with the Rocephin the patient is on possibly responsible for his persistent fever. 2 urine for Legionella antigen came back negative, procalcitonin is 0.67 and CRP pending. 3repeat chest x-ray right lower lobe pneumonia. 4patient has shown Clinical improvement and will continue with Rocephin and Zithromax while inpatient, finishing therapy with oral Levaquin 7 days on discharge Dictation was produced using [employer] dictation software. please excuse any grammatical, word or spelling errors. Time with Patient: Less than 30
[2023-05-26] MEDS: FAMOTIDINE 20 MG/2 ML VIAL IV SCH (09:55)
[2023-05-26] MEDS: HEPARIN SODIUM,PORCINE/PF 5,000 UNIT/0.5 ML SYRINGE SQ SCH (09:55)
[2023-05-26] MEDS: AZITHROMYCIN 250 MG TAB PO SCH (09:56)
[2023-05-26] MEDS: PARoxetine 20 MG TAB PO SCH (09:56)
[2023-05-26] MEDS: ACYCLOVIR 200 MG CAP PO SCH ×2 (09:56→09:57)
[2023-05-26] MEDS: PREGABALIN 50 MG CAP PO SCH ×2 (09:57→17:23)
[2023-05-26] MEDS: COLCHICINE 0.6 MG EACH PO SCH (09:57)
[2023-05-26] MEDS: METOPROLOL TARTRATE 12.5 MG TAB PO SCH (09:57)
[2023-05-26] MEDS: amLODIPine 10 MG TAB PO SCH (09:57)
[2023-05-26] MEDS: ASPIRIN 81 MG PO SCH (09:57)
[2023-05-26 11:16] LABS: Glucose,Whole Blood 147 mg/dL (70-110)
--- NOTE | 2023-05-26 14:35 | P.PN ---
Subjective Progress Note Date: 05/26/23 Principal diagnosis: Fever/pneumonia Patient is a 57-year-old male presenting to the hospital with diarrhea he did have a fever and evidence of right lower lobe pneumonia. On today's evaluation that is 05/26/2023, the patient continues to be afebrile, the patient is breathing comfortably on room air, the patient cough has decreased intensity and not bringing up any sputum, the patient denies having any nausea no vomiting no abdominal pain, diarrhea has decreased in intensity Objective - Vital Signs Vital signs: Vital Signs Temp 98.2 F 05/26/23 07:20 Pulse 98 05/26/23 08:10 Resp 19 05/26/23 08:10 BP 134/84 05/26/23 07:20 Pulse Ox 98 05/26/23 07:20 FiO2 Intake & Output 05/25/23 05/26/23 05/26/23 18:59 06:59 18:59 Intake Total 1080 118 Output Total 700 350 Balance 380 -350 118 Weight 158.757 kg Intake: Oral 1080 118 Output: Urine 700 350 Other: Voiding Method Urinal Urinal Urinal # Voids 2 - Exam GENERAL DESCRIPTION: Middle-aged male lying in bed in no distress RESPIRATORY SYSTEM: Unlabored breathing , decreased breath sounds at bases HEART: S1 S2 regular rate and rhythm , ABDOMEN: Soft , no tenderness EXTREMITIES: No edema feet - Labs CBC & Chem 7: 05/25/23 06:54 05/24/23 08:21 Labs: Abnormal Lab Results - Last 24 Hours (Table) 05/25/23 05/25/23 05/26/23 Range/Units 16:40 20:32 05:24 POC Glucose (mg/dL) 157 H 185 H 126 H (70-110) mg/dL 05/26/23 Range/Units 11:16 POC Glucose (mg/dL) 147 H (70-110) mg/dL Microbiology - Last 24 Hours (Table) 05/23/23 14:57 Blood Culture - Preliminary Blood Assessment and Plan (1) Pneumonia Current Visit: Yes Status: Acute Code(s): J18.9 - PNEUMONIA, UNSPECIFIED ORGANISM SNOMED Code(s): 389391799 Plan: 1patient present to hospital with weakness diarrhea he did have rigors and chills also with a cough and right lower lobe infiltrate concerning for pneumonia possible atypical and may not be covered with the Rocephin the patient is on possibly responsible for his persistent fever. 2 urine for Legionella antigen came back negative, procalcitonin is 0.67 and CRP pending. 3repeat chest x-ray right lower lobe pneumonia. 4patient has shown Clinical improvement plan is to finish with oral Levaquin 7 days on discharge, and close outpatient follow-up Dictation was produced using [employer] dictation software. please excuse any grammatical, word or spelling errors. Time with Patient: Less than 30
[2023-05-26 15:54] VITALS: BP 113/65; PULSE 75; RESP 21; TEMP 98.7
[2023-05-26 16:24] LABS: Glucose,Whole Blood 181 mg/dL (70-110)
--- NOTE | 2023-05-27 02:08 | P.DS ---
Providers Date of admission: 05/19/23 17:53 Attending physician: Perez Pennington Consults: 05/19/23 17:51 Consult Physician Routine Consulting Provider: Yifan Méndez Consult Reason/Comments: known Do you want consulting provider notified?: Yes Consult Physician Routine Consulting Provider: Amairani Ricks Consult Reason/Comments: hepatitis,elevBili Do you want consulting provider notified?: Yes 05/19/23 20:54 Consult Physician Routine Consulting Provider: Denise Sue Consult Reason/Comments: eki Do you want consulting provider notified?: Yes 05/23/23 11:45 Consult Physician Routine Consulting Provider: Makayla Julian Consult Reason/Comments: persistant fever, possible bacteremia Do you want consulting provider notified?: Yes Primary care physician: Perez Pennington Hospital Course: Diagnoses: Right lower lobe pneumonia. Resolved sepsis with fever and leukopenia. Resolved Positive blood culture with coagulase-negative staph, most likely contamination Possible left ankle gout attack Possible blood culture with coagulase negative staph, could be contamination Deshawn pancytopenia Hepatomegaly with hyperbilirubinemia, improving Acute kidney injury improving history of multiple myeloma Morbid obesity BMI 50 Hospital course: This is a pleasant 57 years old male with multiple medical problems presents with diarrhea and generalized weakness initially read patient was found to have right lower lobe pneumonia and he was treated with ceftriaxone. Infectious disease team consult evaluated the patient treated him with the patient IS anticipated discharge. On discharge patient is saturating 98% on room air. Patient with no respiratory symptoms. No chest pain, no dyspnea no wheezing Also patient with evidence of hepatomegaly ultrasound with mild hyper bilirubinemia improving and asymptomatic and clinically stable. Patient and follow-up as an service and the contact information for Dr. Ricks was provided for the patient with instructions and he confirms to me he wants to follow up with her. Hematologic evaluated the patient for anemia and recommended follow-up with GI service as an outpatient for possible scope. Patient was instructed with this recommendation. Risk of cancer explained for the patient. Patient told me he already had a colonoscopy last year however he still willing to follow up with just service I explained to him the patient other sources in the GI which cause the bleeding. Because of this he agrees to follow up with Dr. Ricks as instructed. On the day of discharge patient is asymptomatic. Also patient explained to me he has a family situation that he needs to leave. Patient feels his back to baseline. Denies any other new symptoms. Acute kidney injury resolved. She was cleared for discharge by all consultants including infectious disease team, baggage and mail agent team, GI service and nephrology. Problems and management plan were discussed with the patient and he verbalized understanding and acceptance Patient was found stable and can be discharged home in guarded prognosis however he needs follow-up as an outpatient. Patient was instructed to follow up with PCP Dr. Pennington within one week and patient agrees Patient was instructed to follow up with Dr. Ricks from [facility] service in 1-[address] richardson in 2 weeks and he agrees with the appointments made for him on. Physical exam Gen: patient is a AAOx3, no distress CVS: S1-S2, RRR, no murmur Lungs: B/L CTA, no wheezing Abdomen: soft, no distention, no tenderness, positive bowel sounds Extremity: no leg edema or induration Time spent more than 35 minutes Patient Condition at Discharge: Fair Plan - Discharge Summary Discharge Rx Participant: Yes New Discharge Prescriptions: New Colchicine [Colcrys] 0.6 mg PO BID 3 Days #6 each Levofloxacin [Levaquin] 500 mg PO DAILY 7 Days #7 tab Acetaminophen Tab [Tylenol] 650 mg PO Q6HR PRN tab PRN Reason: Fever And/ Or Pain Continue PARoxetine HCL [Paxil] 40 mg PO DAILY HYDROcodone/APAP 10-325MG [[place] 10-325] 1 tab PO QID PRN PRN Reason: Severe Pain Acyclovir 400 mg PO BID Omeprazole 40 mg PO DAILY traZODone HCL [Desyrel] 50 mg PO HS Metoprolol Tartrate [Lopressor] 12.5 mg PO BID Aspirin 81 mg PO DAILY amLODIPine [Norvasc] 10 mg PO DAILY Discontinued Ibuprofen [Motrin] 800 mg PO Q8H PRN PRN Reason: Moderate Pain Lenalidomide [Revlimid] 5 mg PO DAILY Discharge Medication List PARoxetine HCL [Paxil] 40 mg PO DAILY 04/29/14 [History] HYDROcodone/APAP 10-325MG [[place] 10-325] 1 tab PO QID PRN 08/24/16 [History] Acyclovir 400 mg PO BID 01/03/21 [History] Omeprazole 40 mg PO DAILY 02/04/21 [History] amLODIPine [Norvasc] 10 mg PO DAILY 03/14/21 [History] Aspirin 81 mg PO DAILY 05/19/23 [History] Metoprolol Tartrate [Lopressor] 12.5 mg PO BID 05/19/23 [History] traZODone HCL [Desyrel] 50 mg PO HS 05/19/23 [History] Acetaminophen Tab [Tylenol] 650 mg PO Q6HR PRN tab 05/26/23 [Rx] Colchicine [Colcrys] 0.6 mg PO BID 3 Days #6 each 05/26/23 [Rx] Levofloxacin [Levaquin] 500 mg PO DAILY 7 Days #7 tab 05/26/23 [Rx] Follow up Appointment(s)/Referral(s): Yifan Méndez [STAFF PHYSICIAN] - 06/11/23 1:45 pm [facility] [NON-STAFF] - As Needed (Please call to see if they are able to assist with new stairs and/or railings.) Perez Pennington MD [Primary Care Provider] - 1-2 days Amairani Ricks MD [STAFF PHYSICIAN] - 2 Weeks (GI doctor , we recommend to follow up for possible ooaing of blood also for your enlarged liver ) [facility] [NON-STAFF] - As Needed (Please call to see if they are able to assist with new stairs and/or railings.) Patient Instructions/Handouts: Bacterial Pneumonia (DC) Activity/Diet/Wound Care/Special Instructions: heart healthy diet activity is restricted till you see your doctor we recommend to hold your revlimid till you see your doctor on your appointment with him on 06/11 Discharge/Stand Alone Forms: Who Do I Call?, Community Resources, Help In The Home, Personal Radiation Control Technician Discharge Disposition: HOME SELF-CARE
== END 2023-05-26 17:47 | disposition home or self-care (01) | DRG 871 ==
LOC: EC 15:02 → 4SSUR 17:53
PROVIDERS: ADMIT Family Medicine; ATTEND Family Medicine
DX: A41.9 Sepsis, unspecified organism (principal); J15.9 Unspecified bacterial pneumonia; N17.0 Acute kidney failure with tubular necrosis; D61.818 Other pancytopenia; E87.1 Hypo-osmolality and hyponatremia; Z68.43 Body mass index [BMI] 50.0-59.9, adult; C90.00 Multiple myeloma not having achieved remission; I95.9 Hypotension, unspecified; R16.0 Hepatomegaly, not elsewhere classified; K71.0 Toxic liver disease with cholestasis; E11.9 Type 2 diabetes mellitus without complications; E66.01 Morbid (severe) obesity due to excess calories; D50.9 Iron deficiency anemia, unspecified; D63.0 Anemia in neoplastic disease; T39.395A Adverse effect of other nonsteroidal anti-inflammatory drugs [NSAID], initial encounter; T45.1X5A Adverse effect of antineoplastic and immunosuppressive drugs, initial encounter; M1A.9XX0 Chronic gout, unspecified, without tophus (tophi); I25.2 Old myocardial infarction; E80.6 Other disorders of bilirubin metabolism; E86.0 Dehydration; E86.1 Hypovolemia; E87.6 Hypokalemia; F32.A Depression, unspecified; I10 Essential (primary) hypertension; N20.0 Calculus of kidney; G89.29 Other chronic pain; M54.9 Dorsalgia, unspecified; M25.559 Pain in unspecified hip; I25.10 Atherosclerotic heart disease of native coronary artery without angina pectoris; K57.30 Diverticulosis of large intestine without perforation or abscess without bleeding; Z79.82 Long term (current) use of aspirin; Z79.899 Other long term (current) drug therapy; Z87.891 Personal history of nicotine dependence; Z71.3 Dietary counseling and surveillance; Z88.5 Allergy status to narcotic agent
CPT/HCPCS: 36415; 71045; 71046; 71250; 74176; 76705; 80048; 80053; 80074; 80076; 80320; 81001; 82103; 82105; 82140; 82248; 82390; 82728; 82977; 83010; 83036; 83516; 83540; 83550; 83605; 83615; 83690; 83735; 83880; 84100; 84132; 84145; 84484; 84550; 85025; 85027; 85045; 85384; 85610; 85730; 86038; 87040; 87449; 93005; 94640; 94760; 96361; 96365; 96367; 99285

== ENCOUNTER 2024-08-15 16:03 | Observation (INO) | payer MEDICARE ==
--- NOTE | 2024-08-15 17:38 | ED ---
Skin/Abscess/FB HPI - General Chief complaint: Skin/Abscess/Foreign Body Stated complaint: Rash Time Seen by Provider: 08/15/24 16:45 Source: patient, RN notes reviewed Mode of arrival: ambulatory Limitations: no limitations - History of Present Illness Initial comments: This is a 58-year-old male who presents to the emergency department for a rash. Patient reports a rash on his bilateral upper and lower extremities over the last couple of months. States that this is both itchy and painful. He has not been on any treatment for them and denies any history of similar problems in the past. Denies any new exposures to soaps or detergents and he has not been exposed to anything outside that he thinks may have caused this. States that he saw his PCP today and was advised to come to the emergency department for evaluation by infectious disease. MD complaint: rash - Related Data Home Medications Medication Instructions Recorded Confirmed PARoxetine HCL [Paxil] 40 mg PO DAILY 04/29/14 08/15/24 HYDROcodone/APAP 10-325MG [[place] 1 tab PO QID 08/24/16 08/15/24 10-325] Omeprazole 40 mg PO AC-BRKFST 02/04/21 08/15/24 amLODIPine [Norvasc] 10 mg PO DAILY 03/14/21 08/15/24 ALPRAZolam [Xanax] 1 mg PO HS 08/15/24 08/15/24 Ibuprofen [Motrin] 800 mg PO TID 08/15/24 08/15/24 Tamsulosin [Flomax] 0.4 mg PO HS 08/15/24 08/15/24 diphenhydrAMINE [Benadryl] 50 mg PO BID 08/15/24 08/15/24 lisinopriL [Zestril] 10 mg PO DAILY 08/15/24 08/15/24 lisinopriL [Zestril] 20 mg PO DIRECTED 08/15/24 08/15/24 traZODone HCL [Desyrel] 100 mg PO HS 08/15/24 08/15/24 Allergies Allergy/AdvReac Type Severity Reaction Status Date / Time hydromorphone HCl AdvReac Hallucinati Verified 08/15/24 20:42 [From Dilaudid] ons meperidine HCl [From Demerol] AdvReac Hallucinati Verified 08/15/24 20:42 ons Review of Systems ROS Statement: Those systems with pertinent positive or pertinent negative responses have been documented in the HPI. ROS Other: All systems not noted in ROS Statement are negative. Past Medical History Past Medical History: Cancer, Diabetes Mellitus, Hypertension, Myocardial Infarction ([place]) Additional Past Medical History / Comment(s): gout, chronic back/hip pain, multiple myeloma Last Myocardial Infarction Date:: 02/04/21 History of Any Multi-Drug Resistant Organisms: None Reported Past Surgical History: Orthopedic Surgery Additional Past Surgical History / Comment(s): thymus gland removal, HIP SURGERY., lap band by boutt Past Anesthesia/Blood Transfusion Reactions: No Reported Reaction Past Psychological History: Depression Smoking Status: Former smoker Past Alcohol Use History: None Reported Past Drug Use History: None Reported General Exam Limitations: no limitations General appearance: alert, in no apparent distress Head exam: Present: atraumatic, normocephalic, normal inspection Respiratory exam: Present: normal lung sounds bilaterally. Absent: respiratory distress, wheezes, rales, rhonchi, stridor Cardiovascular Exam: Present: regular rate, normal rhythm, normal heart sounds. Absent: systolic murmur, diastolic murmur, rubs, gallop, clicks Extremities exam: Present: other (Scabbed over lesions to the bilateral upper and lower extremities) Neurological exam: Present: alert, oriented X3, CN II-XII intact Psychiatric exam: Present: normal affect, normal mood Course Vital Signs 08/15/24 08/15/24 16:16 21:02 Temperature 98.2 F Pulse Rate 91 92 Respiratory 18 18 Rate Blood Pressure 121/71 120/62 O2 Sat by Pulse 100 99 Oximetry Medical Decision Making - Medical Decision Making This is a 58 year old male who presents to the emergency department for a rash. Was pt. sent in by a medical professional or institution? @ -No Did you speak to anyone other than the patient for history? @ -No Did you review nursing and triage notes? @ -Yes, and I agree, it is accurate with regards to the patient's symptoms. Were old charts reviewed? @ -No Differential Diagnosis? @ -Differential Rash: Rose[place], measles, Lyme disease, erythema multiforme, cellulitis, toxic shock syndrome, Malcolm Lamonte syndrome, Kawasaki disease, román mountain spotted fever, contact dermatitis, allergic dermatitis, measles, mumps, rubella, varicella, meningococcal disease, drug reaction, coxsackievirus, This is not meant to be an all-inclusive list. EKG interpreted by me (3pts min.)? @ -Not obtained X-rays interpreted by me (1pt min.)? @ -Not obtained CT interpreted by me (1pt min.)? @ -Not obtained U/S interpreted by me (1pt. min.)? @ -Not obtained What testing was considered but not performed? (CT, X-rays, U/S, labs)? Why? @ -None What meds were considered but not given? Why? @ -None Did you discuss the management of the patient with other professionals? @ -Yes, Dr. Pennington, who accepts the patient for admission Did you reconcile home meds? @ -Yes Was smoking cessation discussed for >3mins.? @ -I discussed smoking cessation for greater than 3 minutes. The risk of smoking were discussed with the patient including but not limited to risks of cancer, stroke, coronary artery disease and COPD. Also discussed with patient were multiple methods of quitting smoking. Lastly we discussed the financial cost of smoking. Was critical care preformed (if so, how long)? @ -No Were there social determinants of health that impacted care today? How? (Homelessness, low income, unemployed, alcoholism, drug addiction, transportation, low edu. Level, literacy, decrease access to med. care, retirement, rehab)? @ -No Was there de-escalation of care discussed even if they declined? (Discuss DNR or withdrawal of care, Hospice)? @ -No What co-morbidities impacted this encounter? (DM, HTN, Smoking, COPD, CAD, Cancer, CVA, Hep., AIDS, mental health diagnosis, sleep apnea, morbid obesity)? @ -DM, smoking Was patient admitted / discharged? @ -Admitted. Lab work demonstrates a mildly elevated CRP of 4.4 and was otherwise unremarkable. Patient had scabbed over lesions on the bilateral upper and lower extremities. The pathology of this is not clear. Case discussed with the patient's PCP who advised that the patient can be admitted with consult to infectious disease for further evaluation of these lesions. Patient s ubsequently admitted to medicine for generalized skin lesions/rash with infectious disease on consult. Case discussed with ED attending Dr. Candelario. Undiagnosed new problem with uncertain prognosis? @ -None Drug Therapy requiring intensive monitoring for toxicity (Heparin, Nitro, Insulin, Cardizem)? @ -None Were any procedures done? @ -None Diagnosis/symptom? @ -Generalized skin lesions/rash Acute, or Chronic, or Acute on Chronic? @ -Acute Uncomplicated (without systemic symptoms) or Complicated (systemic symptoms)? @ -Uncomplicated Side effects of treatment? @ -None Exacerbation, Progression, or Severe Exacerbation] @ -Progression Poses a threat to life or bodily function? @ -The itching and pain are interfering with his ability to function. - Lab Data Result diagrams: 08/15/24 17:30 08/15/24 17:30 Lab Results 08/15/24 08/15/24 08/15/24 Range/Units 17:30 17:30 17:30 WBC 6.8 (3.8-10.6) k/uL RBC 3.33 L (4.30-5.90) m/uL Hgb 9.4 L (13.0-17.5) gm/dL Hct 28.7 L (39.0-53.0) % MCV 86.0 (80.0-100.0) fL MCH 28.2 (25.0-35.0) pg MCHC 32.9 (31.0-37.0) g/dL RDW 15.8 H (11.5-15.5) % Plt Count 135 L (150-450) k/uL MPV 7.9 Neutrophils % 62 % Lymphocytes % 18 % Monocytes % 5 % Eosinophils % 13 % Basophils % 0 % Neutrophils # 4.2 (1.3-7.7) k/uL Lymphocytes # 1.2 (1.0-4.8) k/uL Monocytes # 0.3 (0-1.0) k/uL Eosinophils # 0.9 H (0-0.7) k/uL Basophils # 0.0 (0-0.2) k/uL Sodium 137 (137-145) mmol/L Potassium 3.7 (3.5-5.1) mmol/L Chloride 107 (98-107) mmol/L Carbon Dioxide 26 (22-30) mmol/L Anion Gap 4 mmol/L BUN 14 (9-20) mg/dL Creatinine 1.01 (0.66-1.25) mg/dL Est GFR (CKD-EPI)AfAm >90 (>60 ml/min/1.73 sqM) Est GFR (CKD-EPI)NonAf 81 (>60 ml/min/1.73 sqM) Glucose 115 H (74-99) mg/dL Plasma Lactic Acid Heladio 1.1 (0.7-2.0) mmol/L Calcium 8.1 L (8.4-10.2) mg/dL Total Bilirubin 0.3 (0.2-1.3) mg/dL AST 18 (17-59) U/L ALT 9 (4-49) U/L Alkaline Phosphatase 94 (38-126) U/L C-Reactive Protein 4.4 H (<1.0) mg/dL Total Protein 7.5 (6.3-8.2) g/dL Albumin 3.4 L (3.5-5.0) g/dL Disposition Clinical Impression: Skin lesions, generalized, Rash, Nicotine dependence Disposition: ADMITTED IP TO THIS HOSP
[2024-08-15 17:59] LABS: ALT 9 U/L (4-49); AST 18 U/L (17-59); African American GFR (CKD) >90 (>60 ml/min/1.73 sqM); Albumin 3.4 g/dL (3.5-5.0); Alkaline Phosphatase 94 U/L (38-126); Anion Gap 4 mmol/L; Blood Urea Nitrogen 14 mg/dL (9-20); C Reactive Protein 4.4 mg/dL (<1.0); Calcium 8.1 mg/dL (8.4-10.2); Carbon Dioxide 26 mmol/L (22-30); Chloride 107 mmol/L (98-107); Glucose 115 mg/dL (74-99); Non-African American GFR(CKD) 81 (>60 ml/min/1.73 sqM); Potassium 3.7 mmol/L (3.5-5.1); Sodium 137 mmol/L (137-145); Total Bilirubin 0.3 mg/dL (0.2-1.3); Total Protein 7.5 g/dL (6.3-8.2)
[2024-08-15 18:04] LABS: Basophils % (A) 0 %; Eosinophils # (A) 0.9 k/uL (0-0.7); Eosinophils % (A) 13 %; HCT 28.7 % (39.0-53.0); HGB 9.4 gm/dL (13.0-17.5); Lymphocytes # (A) 1.2 k/uL (1.0-4.8); Lymphocytes % (A) 18 %; MCH 28.2 pg (25.0-35.0); MCHC 32.9 g/dL (31.0-37.0); Mean Platelet Volume 7.9; Monocytes # (A) 0.3 k/uL (0-1.0); Monocytes % (A) 5 %; Neutrophils # (A) 4.2 k/uL (1.3-7.7); Neutrophils % (A) 62 %; Platelet Count 135 k/uL (150-450); RBC 3.33 m/uL (4.30-5.90); RDW 15.8 % (11.5-15.5); WBC 6.8 k/uL (3.8-10.6)
[2024-08-15] MEDS ORDERED: NALOXONE 0.4 MG/ML 1 ML VIAL IV PRN (19:53)
[2024-08-15] MEDS ORDERED: ACETAMINOPHEN TAB 325 MG TAB PO PRN (19:53)
[2024-08-15] MEDS ORDERED: IBUPROFEN 400 MG TAB PO PRN (19:53)
[2024-08-15] MEDS ORDERED: ONDANSETRON 4 MG/2 ML VIAL IVP PRN (19:53)
[2024-08-15] MEDS ORDERED: MORPHINE SULFATE 4 MG/ML SYRINGE IV PRN (19:53)
[2024-08-15] MEDS ORDERED: HYDROcodone/APAP 5-325MG 1 EACH TAB PO PRN (19:53)
[2024-08-16] MEDS: ALPRAZolam 1 MG TAB PO SCH (02:21)
[2024-08-16] MEDS: TAMSULOSIN 0.4 MG CAP.ER.24H PO SCH (02:22)
[2024-08-16] MEDS: traZODone HCL 100 MG TAB PO SCH (02:22)
[2024-08-16] MEDS: diphenhydrAMINE 25 MG CAP PO SCH (02:23)
[2024-08-16] MEDS: HYDROcodone/APAP 10-325MG 1 EACH TAB PO SCH (02:23)
[2024-08-16] MEDS: IBUPROFEN 800 MG TAB PO SCH (02:24)
[2024-08-16 03:43] LABS: Erythrocyte Sedimentation Rate 52 mm/Hr (0-20)
[2024-08-16] MEDS ORDERED: NON FORMULARY DRUG (Omeprazole [Omeprazole] 40 MG Capsule.Dr) PO SCH (07:30)
[2024-08-16] MEDS ORDERED: lisinopriL 10 MG TAB PO SCH (09:00)
--- NOTE | 2024-08-16 09:16 | P.HPIM ---
History of Present Illness H&P Date: 08/16/24 Chief Complaint: Pruritus with skin lesions. This is a 58-year-old obese white male with known history of multiple myeloma. The patient has undergone initial treatment and is doing quite well. The patient has underlying history of diabetes history of myocardial infarction, morbid obesity with history of laparoscopic banding in the remote past. The patient has developed, over the last month significant pruritus with lesions. Excoriations of the abdomen are noted with significant scabbing. The patient has not lived in his current dwelling for over the last year. The patient states no pets. Review of Systems Constitutional: Denies chills, Denies fever Eyes: denies blurred vision, denies pain Ears, nose, mouth and throat: Denies headache, Denies sore throat Cardiovascular: Denies chest pain, Denies shortness of breath Respiratory: Denies cough Gastrointestinal: Denies abdominal pain, Denies diarrhea, Denies nausea, Denies vomiting Integumentary: Reports as per HPI, Reports color changes, Reports pruritus, Reports rash, Reports sores Past Medical History Past Medical History: Cancer, Diabetes Mellitus, Hypertension, Myocardial Infarction ([place]) Additional Past Medical History / Comment(s): gout, chronic back/hip pain, multiple myeloma Last Myocardial Infarction Date:: 02/04/21 History of Any Multi-Drug Resistant Organisms: None Reported Past Surgical History: Orthopedic Surgery Additional Past Surgical History / Comment(s): thymus gland removal, HIP SURGERY., lap band by romelt Past Anesthesia/Blood Transfusion Reactions: No Reported Reaction Past Psychological History: Depression Smoking Status: Former smoker Past Alcohol Use History: None Reported Past Drug Use History: None Reported Medications and Allergies Home Medications Medication Instructions Recorded Confirmed Type PARoxetine HCL [Paxil] 40 mg PO DAILY 04/29/14 08/15/24 History HYDROcodone/APAP 10-325MG [[place] 1 tab PO QID 08/24/16 08/15/24 History 10-325] Omeprazole 40 mg PO AC-BRKFST 02/04/21 08/15/24 History amLODIPine [Norvasc] 10 mg PO DAILY 03/14/21 08/15/24 History ALPRAZolam [Xanax] 1 mg PO HS 08/15/24 08/15/24 History Ibuprofen [Motrin] 800 mg PO TID 08/15/24 08/15/24 History Tamsulosin [Flomax] 0.4 mg PO HS 08/15/24 08/15/24 History diphenhydrAMINE [Benadryl] 50 mg PO BID 08/15/24 08/15/24 History lisinopriL [Zestril] 10 mg PO DAILY 08/15/24 08/15/24 History lisinopriL [Zestril] 20 mg PO DIRECTED 08/15/24 08/15/24 History traZODone HCL [Desyrel] 100 mg PO HS 08/15/24 08/15/24 History Allergies Allergy/AdvReac Type Severity Reaction Status Date / Time hydromorphone HCl AdvReac Hallucinati Verified 08/15/24 20:42 [From Dilaudid] ons meperidine HCl [From Demerol] AdvReac Hallucinati Verified 08/15/24 20:42 ons Physical Exam Vitals: Vital Signs Temp Pulse Resp BP Pulse Ox 08/16/24 02:20 97.3 F L 92 17 156/87 96 08/15/24 21:02 92 18 120/62 99 08/15/24 16:16 98.2 F 91 18 121/71 100 Intake and Output 08/15/24 08/16/24 08/16/24 22:59 06:59 14:59 Other: Weight 158.757 kg - Constitutional General appearance: morbidly obese - EENT Eyes: EOMI - Neck Neck: no lymphadenopathy - Respiratory Respiratory: bilateral: diminished - Cardiovascular Rhythm: regular Heart sounds: normal: S1, S2 Abnormal Heart Sounds: no S3 Gallop - Gastrointestinal General gastrointestinal: soft, no tenderness - Integumentary Multiforme lesions with scratch chamorro and scabbing. Abdomen looks excoriated. Integumentary: rash - Neurologic Neurologic: CNII-XII intact Results CBC & Chem 7: 08/15/24 17:30 08/15/24 17:30 Labs: Abnormal Lab Results - Last 24 Hours (Table) 08/15/24 08/15/24 Range/Units 17:30 17:30 RBC 3.33 L (4.30-5.90) m/uL Hgb 9.4 L (13.0-17.5) gm/dL Hct 28.7 L (39.0-53.0) % RDW 15.8 H (11.5-15.5) % Plt Count 135 L (150-450) k/uL Eosinophils # 0.9 H (0-0.7) k/uL ESR 52 H (0-20) mm/Hr Glucose 115 H (74-99) mg/dL Calcium 8.1 L (8.4-10.2) mg/dL C-Reactive Protein 4.4 H (<1.0) mg/dL Albumin 3.4 L (3.5-5.0) g/dL Assessment and Plan (1) Rash Current Visit: Yes Status: Acute Code(s): R21 - RASH AND OTHER NONSPECIFIC SKIN ERUPTION SNOMED Code(s): 793361485 (2) Skin lesions, generalized Current Visit: Yes Status: Acute Code(s): L98.9 - DISORDER OF THE SKIN AND SUBCUTANEOUS TISSUE, UNSPECIFIED SNOMED Code(s): 04879813 (3) Depression Current Visit: No Status: Acute Code(s): F32.A - DEPRESSION, UNSPECIFIED SNOMED Code(s): 07472255 (4) Diabetes Current Visit: No Status: Acute Code(s): E11.9 - TYPE 2 DIABETES MELLITUS WITHOUT COMPLICATIONS SNOMED Code(s): 59116374 (5) Multiple myeloma Current Visit: No Status: Chronic Priority: High Code(s): C90.00 - MULTIPLE MYELOMA NOT HAVING ACHIEVED REMISSION SNOMED Code(s): 782268465 Plan: Will ask infectious disease to comment. Dermatologic evaluation if possible. Reconcile medications. Placed on sliding scale as necessary. Check CBC and CMP in AM.
[2024-08-16] MEDS: PARoxetine 20 MG TAB PO SCH (09:51)
[2024-08-16] MEDS: lisinopriL 20 MG TAB PO SCH (09:51)
[2024-08-16] MEDS: amLODIPine 10 MG TAB PO SCH (09:52)
[2024-08-16] MEDS: PANTOPRAZOLE 40 MG/10 ML VIAL IV SCH (09:56)
[2024-08-16] MEDS ORDERED: CALAMINE/ZINC OXIDE LOTION 177 ML BTL TOPICAL PRN (14:12)
[2024-08-16] MEDS: methylPREDNISolone SOD SUCCI 125 MG/2 ML VIAL IV STA (15:01)
[2024-08-16] MEDS: methylPREDNISolone SOD SUCCI 125 MG/2 ML VIAL IV SCH (20:04)
--- NOTE | 2024-08-16 23:37 | P.CONS ---
History of Present Illness - Reason for Consult Consult date: 08/16/24 Skin lesion, rash Requesting physician: Kitty Roberts - Chief Complaint Rash and itching x 2 months - History of Present Illness Patient is a 58-year-old male with a past medical history significant for diabetes mellitus hypertension [place] gout multiple myeloma presenting to the hospital for evaluation of rash and itching that has been going on for almost 2 months patient did not recall starting any new medication soap or detergents has been complaining of intense rash throughout his body with intense itching and the patient did have multiple scratch chamorro patient has been treated in the outpatient setting however the patient not very clear about the treatment has not seen a manager field services and a biopsy has been done on presentation to the hospital patient was afebrile and no fever have recorded subsequently patient was not tachycardic hypotensive or hypoxic he did have a white count of 6.8 creatinine is normal liver enzymes are normal CRP is 4.4 patient has been admitted to hospital infectious was consulted because of rash and treatment Review of Systems Positive point and negatives has been mentioned in the HPI, complete review of systems was performed and all other systems are negative Past Medical History Past Medical History: Cancer, Diabetes Mellitus, Hypertension, Myocardial Infarction ([place]) Additional Past Medical History / Comment(s): gout, chronic back/hip pain, multiple myeloma Last Myocardial Infarction Date:: 02/04/21 History of Any Multi-Drug Resistant Organisms: None Reported Past Surgical History: Orthopedic Surgery Additional Past Surgical History / Comment(s): thymus gland removal, HIP SURGERY., lap band by boutt Past Anesthesia/Blood Transfusion Reactions: No Reported Reaction Past Psychological History: Depression Smoking Status: Former smoker Past Alcohol Use History: None Reported Past Drug Use History: None Reported Medications and Allergies Home Medications Medication Instructions Recorded Confirmed Type PARoxetine HCL [Paxil] 40 mg PO DAILY 04/29/14 08/15/24 History HYDROcodone/APAP 10-325MG [[place] 1 tab PO QID 08/24/16 08/15/24 History 10-325] Omeprazole 40 mg PO AC-BRKFST 02/04/21 08/15/24 History amLODIPine [Norvasc] 10 mg PO DAILY 03/14/21 08/15/24 History ALPRAZolam [Xanax] 1 mg PO HS 08/15/24 08/15/24 History Ibuprofen [Motrin] 800 mg PO TID 08/15/24 08/15/24 History Tamsulosin [Flomax] 0.4 mg PO HS 08/15/24 08/15/24 History diphenhydrAMINE [Benadryl] 50 mg PO BID 08/15/24 08/15/24 History lisinopriL [Zestril] 10 mg PO DAILY 08/15/24 08/15/24 History lisinopriL [Zestril] 20 mg PO DIRECTED 08/15/24 08/15/24 History traZODone HCL [Desyrel] 100 mg PO HS 08/15/24 08/15/24 History Allergies Allergy/AdvReac Type Severity Reaction Status Date / Time hydromorphone HCl AdvReac Hallucinati Verified 08/15/24 20:42 [From Dilaudid] ons meperidine HCl [From Demerol] AdvReac Hallucinati Verified 08/15/24 20:42 ons Physical Exam Vitals: Vital Signs Temp Pulse Resp BP Pulse Ox 08/16/24 12:47 102 H 18 131/71 100 08/16/24 09:48 98 18 116/72 97 08/16/24 02:20 97.3 F L 92 17 156/87 96 08/15/24 21:02 92 18 120/62 99 08/15/24 16:16 98.2 F 91 18 121/71 100 Intake and Output 08/15/24 08/16/24 08/16/24 22:59 06:59 14:59 Other: Weight 158.757 kg GENERAL DESCRIPTION: Middle-aged male lying in bed, no distress. No tachypnea or accessory muscle of respiration use. HEENT: Shows Pallor , no scleral icterus. Oral mucous membrane is dry. No pharyngeal erythema or thrush NECK: Trachea central, no thyromegaly. LUNGS: Unlabored breathing. Clear to auscultation anteriorly. No wheeze or crackle. HEART: S1, S2, regular rate and rhythm. No loud murmur ABDOMEN: Soft, no tenderness , guarding or rigidity, no organomegaly EXTREMITIES: No edema of feet. SKIN: Patient did have generalized maculopapular rash with significant scratch marking on the upper lower extremity no vesicle no mucous membrane involvement NEUROLOGICAL: The patient is awake, alert, oriented x3, mood and affect normal. Results CBC & Chem 7: 08/15/24 17:30 08/15/24 17:30 Labs: Abnormal Lab Results - Last 24 Hours (Table) 08/15/24 08/15/24 Range/Units 17:30 17:30 RBC 3.33 L (4.30-5.90) m/uL Hgb 9.4 L (13.0-17.5) gm/dL Hct 28.7 L (39.0-53.0) % RDW 15.8 H (11.5-15.5) % Plt Count 135 L (150-450) k/uL Eosinophils # 0.9 H (0-0.7) k/uL ESR 52 H (0-20) mm/Hr Glucose 115 H (74-99) mg/dL Calcium 8.1 L (8.4-10.2) mg/dL C-Reactive Protein 4.4 H (<1.0) mg/dL Albumin 3.4 L (3.5-5.0) g/dL Assessment and Plan (1) Rash Current Visit: Yes Status: Acute Code(s): R21 - RASH AND OTHER NONSPECIFIC SKIN ERUPTION SNOMED Code(s): 560760052 Plan: 1patient presented hospital with extensive rash that is involving most of his body with significant itching associated with it more likely representing a drug rash and the likely drug associated on review of his medication profile his lisinopril 2-we will discontinue lisinopril 3-start the patient on Solu-Medrol because of extensive rash and calamine lotion for symptomatic relief 4-we will check labs to rule out rheumatological disorder We will follow on clinical condition and cultures to further adjust medication if needed Thank you for this consultation we will follow the patient along with you Dictation was produced using [employer] dictation software. please excuse any grammatical, word or spelling errors. Time with Patient: Greater than 30
[2024-08-17] MEDS ORDERED: DEXTROSE 50% SYRINGE 50 ML IVP PRN ×3 (08:15→12:38)
--- NOTE | 2024-08-17 08:35 | P.PN ---
Subjective Progress Note Date: 08/17/24 Principal diagnosis: Allergic dermatitis Patient is a 58-year-old white male with known history of multiple myeloma came in with significant excoriation and pruritus. Appreciate Dr. Julian's input. We will hold lisinopril and Solu-Medrol has been started. Will place on sliding scale for history of previous diabetes. Objective - Vital Signs Vital signs: Vital Signs Temp 97.7 F 08/17/24 07:00 Pulse 80 08/17/24 07:00 Resp 18 08/17/24 07:00 BP 153/78 08/17/24 07:00 Pulse Ox 97 08/17/24 07:00 FiO2 Intake & Output 08/16/24 08/17/24 08/17/24 18:59 06:59 18:59 Intake Total 666 Output Total 250 Balance 666 -250 Weight 158.757 kg Intake: Oral 666 Output: Urine 250 Other: Voiding Method Toilet Toilet Urinal Urinal # Voids 4 - Constitutional General appearance: Present: morbidly obese, no acute distress - EENT Eyes: Absent: abnormal pupil - Neck Neck: Absent: lymphadenopathy - Respiratory Respiratory: bilateral: diminished - Cardiovascular Rhythm: regular Heart sounds: normal: S1, S2 Abnormal Heart Sounds: Absent: S3 Gallop - Gastrointestinal General gastrointestinal: Present: soft. Absent: tenderness - Neurologic Neurologic: Present: CNII-XII intact - Labs CBC & Chem 7: 08/15/24 17:30 08/15/24 17:30 Assessment and Plan (1) Rash Current Visit: Yes Status: Acute Code(s): R21 - RASH AND OTHER NONSPECIFIC SKIN ERUPTION SNOMED Code(s): 625125212 (2) Skin lesions, generalized Current Visit: Yes Status: Acute Code(s): L98.9 - DISORDER OF THE SKIN AND SUBCUTANEOUS TISSUE, UNSPECIFIED SNOMED Code(s): 36025053 (3) Depression Current Visit: No Status: Acute Code(s): F32.A - DEPRESSION, UNSPECIFIED SNOMED Code(s): 57268019 (4) Diabetes Current Visit: No Status: Acute Code(s): E11.9 - TYPE 2 DIABETES MELLITUS WITHOUT COMPLICATIONS SNOMED Code(s): 51820278 (5) Multiple myeloma Current Visit: No Status: Chronic Priority: High Code(s): C90.00 - MULTIPLE MYELOMA NOT HAVING ACHIEVED REMISSION SNOMED Code(s): 835218737 Plan: Will ask infectious disease to comment. Dermatologic evaluation if possible. Reconcile medications. Placed on sliding scale as necessary. Spate discharge in 24 hours.
[2024-08-17 10:58] LABS: ALT 8 U/L (10-49); AST 16 U/L (14-35); Albumin 3.4 g/dL (3.8-4.9); Albumin/Globulin Ratio 0.85 Ratio (1.60-3.17); Alkaline Phosphatase 86 U/L (41-126); BUN/Creat Ratio 13.67 Ratio (12.00-20.00); Blood Urea Nitrogen 12.3 mg/dL (9.0-27.0); Calcium 8.1 mg/dL (8.7-10.3); Carbon Dioxide 23.9 mmol/L (21.6-31.8); Chloride 101 mmol/L (96-109); Glucose 208 mg/dL (70-110); Potassium 4.4 mmol/L (3.5-5.5); Rheumatoid Factor, Qnt 37 IU/mL (0-15); Sodium 135 mmol/L (135-145); Total Bilirubin 0.3 mg/dL (0.3-1.2); Total Protein 7.4 g/dL (6.2-8.2)
[2024-08-17 11:06] LABS: HCT 27.5 % (39.6-50.0); HGB 8.6 g/dL (13.0-17.0); MCHC 31.3 g/dL (32.0-37.0); MCV 86.5 FL (80.0-97.0); Mean Platelet Volume 10.1 FL (9.5-12.2); NRBC Per 100 WBC 0 X 10*3/uL (0.00-0.01); Platelet Count 112 X 10*3/uL (140-440); RBC 3.18 X 10*6/uL (4.40-5.60); RDW 13.8 % (11.5-14.5); WBC 5.52 X 10*3/uL (4.50-10.00)
[2024-08-17] MEDS: INSULIN ASPART (NovoLOG) 100 UNIT/ML VIAL SQ SCH (12:30)
[2024-08-17 12:33] LABS: Glucose,Whole Blood 311 mg/dL (70-110)
[2024-08-17 14:51] VITALS: RESP 17
[2024-08-17] MEDS: NYSTATIN 100,000UNIT/GM CREAM 30 GM TUBE TOPICAL SCH (15:48)
[2024-08-17] MEDS: TRIAMCINOLONE 0.1% CREAM 80 GM TUBE TOPICAL SCH (15:48)
[2024-08-17 17:40] LABS: Glucose,Whole Blood 346 mg/dL (70-110)
[2024-08-17 20:35] LABS: Glucose,Whole Blood 313 mg/dL (70-110)
[2024-08-18 06:10] LABS: Glucose,Whole Blood 289 mg/dL (70-110)
[2024-08-18] MEDS: PANTOPRAZOLE 40 MG TABLET PO SCH (06:34)
[2024-08-18 07:58] VITALS: BP 150/76; PULSE 66; TEMP 97.9
--- NOTE | 2024-08-18 08:28 | P.DS ---
Providers Date of admission: 08/15/24 20:25 Attending physician: Perez Pennington Consults: 08/15/24 19:53 Consult Physician Urgent Consulting Provider: Makayla Julian Consult Reason/Comments: Skin lesions, rash Do you want consulting provider notified?: Yes Primary care physician: Perez Pennington - Discharge Diagnosis(es) (1) Rash Current Visit: Yes Status: Acute (2) Skin lesions, generalized Current Visit: Yes Status: Acute (3) Depression Current Visit: No Status: Acute (4) Diabetes Current Visit: No Status: Acute (5) Multiple myeloma Current Visit: No Status: Chronic Priority: High Hospital Course: The patient was admitted due to severe excoriation and dermatitis with rash. Infectious disease was consulted and thought it was more an allergic element to possibly lisinopril and this was discontinued. Blood pressure has been low but labile and we will most likely adjust the medication as an outpatient but discontinue lisinopril he had multiple doses of methylprednisone and we will DC him home on steroid therapy. Underlying history of multiple myeloma. The patient will follow-up with me in about 3 days. Patient Condition at Discharge: Stable Plan - Discharge Summary Discharge Rx Participant: No New Discharge Prescriptions: New Nystatin 100,000Unit/gm Cream [Mycostatin Cream] 1 applic TOPICAL BID 2 Days #60 gm Calamine/Zinc Oxide Lotion [Calamine Lotion] 1 applic TOPICAL BID PRN #120 ml PRN Reason: Skin Irritation Triamcinolone 0.1% Cream [Kenalog 0.1% Cream] 1 applic TOPICAL BID #60 gm methylPREDNISolone Dose Pack [Medrol Dose Pack] 4 mg PO DIRECTED #21 tab Continue PARoxetine HCL [Paxil] 40 mg PO DAILY HYDROcodone/APAP 10-325MG [[place] 10-325] 1 tab PO QID Omeprazole 40 mg PO AC-BRKFST diphenhydrAMINE [Benadryl] 50 mg PO BID traZODone HCL [Desyrel] 100 mg PO HS ALPRAZolam [Xanax] 1 mg PO HS amLODIPine [Norvasc] 10 mg PO DAILY Tamsulosin [Flomax] 0.4 mg PO HS Ibuprofen [Motrin] 800 mg PO TID Discontinued lisinopriL [Zestril] 10 mg PO DAILY lisinopriL [Zestril] 20 mg PO DIRECTED Discharge Medication List PARoxetine HCL [Paxil] 40 mg PO DAILY 04/29/14 [History] HYDROcodone/APAP 10-325MG [[place] 10-325] 1 tab PO QID 08/24/16 [History] Omeprazole 40 mg PO AC-BRKFST 02/04/21 [History] amLODIPine [Norvasc] 10 mg PO DAILY 03/14/21 [History] ALPRAZolam [Xanax] 1 mg PO HS 08/15/24 [History] Ibuprofen [Motrin] 800 mg PO TID 08/15/24 [History] Tamsulosin [Flomax] 0.4 mg PO HS 08/15/24 [History] diphenhydrAMINE [Benadryl] 50 mg PO BID 08/15/24 [History] traZODone HCL [Desyrel] 100 mg PO HS 08/15/24 [History] Calamine/Zinc Oxide Lotion [Calamine Lotion] 1 applic TOPICAL BID PRN #120 ml 08/18/24 [Rx] Nystatin 100,000Unit/gm Cream [Mycostatin Cream] 1 applic TOPICAL BID 2 Days #60 gm 08/18/24 [Rx] Triamcinolone 0.1% Cream [Kenalog 0.1% Cream] 1 applic TOPICAL BID #60 gm 08/18/24 [Rx] methylPREDNISolone Dose Pack [Medrol Dose Pack] 4 mg PO DIRECTED #21 tab 08/18/24 [Rx] Follow up Appointment(s)/Referral(s): Perez Pennington MD [Primary Care Provider] - 3 Days Activity/Diet/Wound Care/Special Instructions: [facility] - [facility] DIRECTOR - RADHA PRESLEY P: [phone] Discharge/Stand Alone Forms: Who Do I Call?, Assisted Living Facilities, Community Resources, Outpatient Counseling
--- NOTE | 2024-08-18 12:49 | P.PN ---
Subjective Progress Note Date: 08/17/24 Principal diagnosis: Reason for follow-up is a drug rash Patient is a 58-year-old male with a past medical history significant for diabetes mellitus hypertension [place] gout multiple myeloma presenting to the hospital for evaluation of rash and itching that has been going on for almost 2 months, patient be diagnosed with a drug rash possible related to lisinopril which was discontinued. On today's evaluation that is 08/17/2024, patient has been afebrile, patient is breathing comfortably and is currently on room air, patient denies having any significant cough no chest pain, patient denies nausea vomiting or diarrhea and no abdominal pain, the patient rash and itching has decreased in intensity he did have a more intense rash on bilateral flank area. Patient white count is 5.5, creatinine 0.9 Objective - Vital Signs Vital signs: Vital Signs Temp 97.7 F 08/17/24 07:00 Pulse 80 08/17/24 07:00 Resp 18 08/17/24 07:00 BP 153/78 08/17/24 07:00 Pulse Ox 97 08/17/24 07:00 FiO2 Intake & Output 08/16/24 08/17/24 08/17/24 18:59 06:59 18:59 Intake Total 666 222 Output Total 250 Balance 666 -250 222 Weight 158.757 kg Intake: Oral 666 222 Output: Urine 250 Other: Voiding Method Toilet Toilet Toilet Urinal Urinal Urinal # Voids 4 - Exam GENERAL DESCRIPTION: Middle-age male lying in bed in no distress RESPIRATORY SYSTEM: Unlabored breathing , decreased breath sounds at bases HEART: S1 S2 regular rate and rhythm , ABDOMEN: Soft , no tenderness SKIN: Overall generalized rash has decreased intensity more intense rash and some excoriation to bilateral flank area - Labs CBC & Chem 7: 08/17/24 08:11 08/17/24 08:11 Labs: Abnormal Lab Results - Last 24 Hours (Table) 08/17/24 08/17/24 08/17/24 Range/Units 08:11 08:11 12:31 RBC 3.18 L (4.40-5.60) X 10*6/uL Hgb 8.6 L (13.0-17.0) g/dL Hct 27.5 L (39.6-50.0) % MCHC 31.3 L (32.0-37.0) g/dL Plt Count 112 L (140-440) X 10*3/uL Glucose 208 H (70-110) mg/dL POC Glucose (mg/dL) 311 H (70-110) mg/dL Calcium 8.1 L (8.7-10.3) mg/dL ALT 8 L (10-49) U/L Albumin 3.4 L (3.8-4.9) g/dL Globulin 4.0 H (1.6-3.3) g/dL Albumin/Globulin Ratio 0.85 L (1.60-3.17) Ratio Rheumatoid Factor 37 H (0-15) IU/mL Assessment and Plan (1) Rash Status: Acute Code(s): R21 - RASH AND OTHER NONSPECIFIC SKIN ERUPTION SNOMED Code(s): 944073662 (2) Fungal dermatitis Status: Acute Code(s): B36.9 - SUPERFICIAL MYCOSIS, UNSPECIFIED SNOMED Code(s): 09451712 Plan: 1patient presented hospital with extensive rash that is involving most of his body with significant itching associated with it more likely representing a drug rash and the likely drug associated on review of his medication profile his lisinopril 2-patient did have improvement in the rash after discontinuation of the lisinopril continue with the Solu-Medrol and calamine lotion 3patient also have a component of fungal dermatitis to bilateral flank area on which will apply Mycolog cream Dictation was produced using [employer] dictation software. please excuse any grammatical, word or spelling errors. Time with Patient: Less than 30
--- NOTE | 2024-08-18 12:50 | P.PN ---
Subjective Progress Note Date: 08/18/24 Principal diagnosis: Reason for follow-up is a drug rash Patient is a 58-year-old male with a past medical history significant for diabetes mellitus hypertension [place] gout multiple myeloma presenting to the hospital for evaluation of rash and itching that has been going on for almost 2 months, patient be diagnosed with a drug rash possible related to lisinopril which was discontinued. On today's evaluation that is 08/18/2024, the patient continues to be afebrile, the patient is on room air and breathing comfortably, the Pt denies having any chest pain or cough, the patient denies having any abdominal pain no vomiting or any diarrhea, patient mention overall improvement in his itching and rash the rash to the flank area has also improved with the Mycolog cream feeling better and mention has been discharged. No new lab has been obtained today Objective - Vital Signs Vital signs: Vital Signs Temp 97.9 F 08/18/24 07:00 Pulse 66 08/18/24 07:00 Resp 17 08/18/24 07:00 BP 150/76 08/18/24 07:00 Pulse Ox 93 L 08/18/24 07:00 FiO2 Intake & Output 08/17/24 08/18/24 08/18/24 18:59 06:59 18:59 Intake Total 666 500 Balance 666 500 Intake: Oral 666 500 Other: Voiding Method Toilet Toilet Urinal Urinal # Voids 3 2 - Exam GENERAL DESCRIPTION: Middle-age male lying in bed in no distress RESPIRATORY SYSTEM: Unlabored breathing , decreased breath sounds at bases HEART: S1 S2 regular rate and rhythm , ABDOMEN: Soft , no tenderness SKIN: Overall generalized rash has decreased intensity, rash and some excoriation to bilateral flank area has decreased in intensity - Labs CBC & Chem 7: 08/17/24 08:11 08/17/24 08:11 Labs: Abnormal Lab Results - Last 24 Hours (Table) 08/15/24 08/17/24 08/17/24 Range/Units 17:30 17:39 20:33 POC Glucose (mg/dL) 346 H 313 H (70-110) mg/dL Hemoglobin A1c 7.3 H (<=6.0) % 08/18/24 Range/Units 06:08 POC Glucose (mg/dL) 289 H (70-110) mg/dL Hemoglobin A1c (<=6.0) % Assessment and Plan (1) Rash Status: Acute Code(s): R21 - RASH AND OTHER NONSPECIFIC SKIN ERUPTION SNOMED Code(s): 487067479 (2) Fungal dermatitis Status: Acute Code(s): B36.9 - SUPERFICIAL MYCOSIS, UNSPECIFIED SNOMED Code(s): 18045870 Plan: 1patient presented hospital with extensive rash that is involving most of his body with significant itching associated with it more likely representing a drug rash and the likely drug associated on review of his medication profile his lisinopril 2-patient did have improvement in the rash after discontinuation of the lisinopril patient is being discharged on tapering course of prednisone can use calamine lotion as needed for itching 3patient also have a component of fungal dermatitis to bilateral flank area which has shown improvement with Mycolog cream, to continue for about a week on discharge Dictation was produced using [employer] dictation software. please excuse any grammatical, word or spelling errors. Time with Patient: Less than 30
[2024-08-18 14:30] LABS: C-ANCA <1:20 Titer (<1:20)
[2024-08-19 15:18] LABS: C5 Complement Functional 56 U/mL (29 - 53)
[2024-08-22 07:22] LABS: Glucose,Whole Blood 297 mg/dL (70-110)
== END 2024-08-18 13:06 | disposition home or self-care (01) ==
LOC: EC 16:03 → 6NMEDSUR 20:25
PROVIDERS: ADMIT Family Medicine; ATTEND Family Medicine
DX: L23.9 Allergic contact dermatitis, unspecified cause (principal); B36.9 Superficial mycosis, unspecified; L27.0 Generalized skin eruption due to drugs and medicaments taken internally; E11.9 Type 2 diabetes mellitus without complications; C90.00 Multiple myeloma not having achieved remission; E66.01 Morbid (severe) obesity due to excess calories; I10 Essential (primary) hypertension; I25.2 Old myocardial infarction; F17.210 Nicotine dependence, cigarettes, uncomplicated; F32.A Depression, unspecified; M10.9 Gout, unspecified; Z79.891 Long term (current) use of opiate analgesic; Z79.1 Long term (current) use of non-steroidal anti-inflammatories (NSAID); Z79.899 Other long term (current) drug therapy; Z88.5 Allergy status to narcotic agent; Z71.6 Tobacco abuse counseling
CPT/HCPCS: 96376 ×3; 96374; 96375; 99284; 36415; 36410; 76937; 86160 ×3; 86255; 86162; 80053 ×2; 85652; 83605; 85025; 85027; 86140; 86431; 86038; 83036; G0378 ×4; J2919 ×3; J2470 ×2

== ENCOUNTER → 2024-08-30 | Outpatient (CLI) | payer MEDICARE ==
--- NOTE | 2024-08-30 15:23 | XR ---
EXAMINATION TYPE: XR chest 2V DATE OF EXAM: 08/30/2024 COMPARISON: 05/24/2023 HISTORY: 58-year-old male R05.1, cough, R06.02 shortness of breath TECHNIQUE: Frontal and lateral views FINDINGS: Large patient body habitus results in hazy densities. Heart mildly enlarged. Median sternotomy wires with post-CABG. No lilly consolidation or pleural effusion. DISH mid thoracic spine. IMPRESSION: Limited by large body habitus. There is mild cardiomegaly and post-CABG changes. [facility], , 08/30/2024 3:20 PM
== END | disposition home or self-care (01) ==
LOC: RADXRMAIN 14:42
PROVIDERS: ATTEND Family Medicine
CPT/HCPCS: 71046

== ENCOUNTER 2024-09-08 15:57 | Observation (INO) | payer MEDICARE ==
--- NOTE | 2024-09-08 16:43 | XR ---
EXAMINATION TYPE: XR chest 2V DATE OF EXAM: 09/08/2024 4:39 PM COMPARISON: None. CLINICAL INDICATION: Male, 58 years old with history of Weakness, TECHNIQUE: XR chest 2V view(s) obtained. FINDINGS: The heart size is normal. The pulmonary vasculature is normal. The lungs are clear. IMPRESSION: 1. No acute pulmonary process. [facility], , 09/08/2024 4:41 PM
--- NOTE | 2024-09-08 16:58 | ED ---
Weakness HPI - General Chief complaint: Weakness Stated complaint: fever, lethargy Time Seen by Provider: 09/08/24 16:54 Source: patient, RN notes reviewed, old records reviewed Mode of arrival: ambulatory Limitations: no limitations - History of Present Illness Initial comments: This is a 58-year-old male with near syncope weakness failure to thrive not eating or drinking well and multiple episodes of near syncope and passing out with significant diaphoresis shortness of breath MD Complaint: generalized weakness -: days(s) Location: generalized Severity: severe Severity scale (1-10): 9 Consistency: constant Improves with: none Worsens with: none Context: recent illness, history of similar Associated Symptoms: chest pain, shortness of breath, syncope - Related Data Home Medications Medication Instructions Recorded Confirmed PARoxetine HCL [Paxil] 40 mg PO DAILY 04/29/14 09/08/24 HYDROcodone/APAP 10-325MG [[place] 1 tab PO QID 08/24/16 09/08/24 10-325] Omeprazole 40 mg PO AC-BRKFST 02/04/21 09/08/24 ALPRAZolam [Xanax] 1 mg PO HS 08/15/24 09/08/24 Ibuprofen [Motrin] 800 mg PO TID 08/15/24 09/08/24 Tamsulosin [Flomax] 0.4 mg PO HS 08/15/24 09/08/24 traZODone HCL [Desyrel] 100 mg PO HS 08/15/24 09/08/24 Previous Rx's Medication Instructions Recorded Atorvastatin [Lipitor] 20 mg PO DAILY #30 tab 09/12/24 Losartan [Cozaar] 25 mg PO DAILY #30 tab 09/12/24 Spironolactone [Aldactone] 25 mg PO DAILY #30 tab 09/12/24 Torsemide [Demadex] 10 mg PO DAILY #30 tab 09/12/24 amLODIPine [Norvasc] 5 mg PO DAILY #30 tab 09/12/24 carvediloL [Coreg] 3.125 mg PO BID-W/MEALS #60 tab 09/12/24 Allergies Allergy/AdvReac Type Severity Reaction Status Date / Time lisinopril Allergy Rash/Hives Verified 09/09/24 16:07 hydromorphone HCl AdvReac Hallucinati Verified 09/09/24 16:07 [From Dilaudid] ons meperidine HCl [From Demerol] AdvReac Hallucinati Verified 09/09/24 16:07 ons Review of Systems ROS Statement: Those systems with pertinent positive or pertinent negative responses have been documented in the HPI. ROS Other: All systems not noted in ROS Statement are negative. Past Medical History Past Medical History: Cancer, Diabetes Mellitus, Hypertension, Myocardial Infarction ([place]) Additional Past Medical History / Comment(s): gout, chronic back/hip pain, multiple myeloma Last Myocardial Infarction Date:: 02/04/21 History of Any Multi-Drug Resistant Organisms: None Reported Past Surgical History: Orthopedic Surgery Additional Past Surgical History / Comment(s): thymus gland removal, HIP SURGERY., lap band by boutt Past Anesthesia/Blood Transfusion Reactions: No Reported Reaction Past Psychological History: Depression Smoking Status: Former smoker Past Alcohol Use History: None Reported Past Drug Use History: None Reported General Exam Limitations: no limitations General appearance: alert, anxious, lethargic, in distress Head exam: Present: atraumatic, normocephalic, normal inspection Eye exam: Present: normal appearance, PERRL, EOMI. Absent: scleral icterus, con junctival injection, periorbital swelling ENT exam: Present: normal exam, mucous membranes moist Neck exam: Present: normal inspection. Absent: tenderness, meningismus, lymphadenopathy Respiratory exam: Present: normal lung sounds bilaterally. Absent: respiratory distress, wheezes, rales, rhonchi, stridor Cardiovascular Exam: Present: normal rhythm, tachycardia, normal heart sounds. Absent: systolic murmur, diastolic murmur, rubs, gallop, clicks GI/Abdominal exam: Present: soft, normal bowel sounds. Absent: distended, tenderness, guarding, rebound, rigid Extremities exam: Present: normal inspection, full ROM, normal capillary refill. Absent: tenderness, pedal edema, joint swelling, calf tenderness Back exam: Present: normal inspection Neurological exam: Present: alert, oriented X3, CN II-XII intact Psychiatric exam: Present: normal affect, normal mood Skin exam: Present: warm, dry, intact, normal color. Absent: rash Course Vital Signs 09/08/24 09/08/24 09/08/24 16:13 17:42 17:47 Temperature 97.7 F 99.1 F Pulse Rate 110 H 98 87 Pulse Rate [ Laboratory Chemical Assistant ] Respiratory 20 18 Rate Blood Pressure 90/59 106/68 131/81 Blood Pressure [Right Arm] O2 Sat by Pulse 99 95 Oximetry 09/08/24 09/09/24 09/09/24 19:15 06:19 08:00 Temperature 97.8 F Pulse Rate 87 89 Pulse Rate [ 98 Laboratory Chemical Assistant ] Respiratory 16 18 17 Rate Blood Pressure 117/76 142/85 Blood Pressure 143/80 [Right Arm] O2 Sat by Pulse 96 96 Oximetry 09/09/24 09/09/24 14:00 14:22 Temperature 97.9 F Pulse Rate Pulse Rate [ 98 92 Laboratory Chemical Assistant ] Respiratory 18 Rate Blood Pressure Blood Pressure 145/55 [Right Arm] O2 Sat by Pulse Oximetry - Reevaluation(s) Reevaluation #1: 09/08/24 16:58 Medical records reviewed Reevaluation #2: Patient symptoms mildly improved if not unchanged Reevaluation #3: Patient informed of results and questions answered Reevaluation #4: Was pt. sent in by a medical professional or institution (, PA, SALESPERSON B[employer]IAL NEED[employer], urgent care, hospital, or shelter...) When possible be specific @ -no Did you speak to anyone other than the patient for history (EMS, parent, family, police, friend...)? What history was obtained from this source @ -no Did you review nursing and triage notes (agree or disagree)? Why? @ -agree Are old charts reviewed (outside hosp., previous admission, EMS record, old EKG, old radiological studies, urgent care reports/EKG's, shelter records)? Report findings @ -yes Differential Diagnosis (chest pain, altered mental status, abdominal pain women, abdominal pain men, vaginal bleeding, weakness, fever, dyspnea, syncope, headache, dizziness, GI bleed, back pain, seizure, CVA, palpatations, mental health, musculoskeletal)? @ -prior EKG interpreted by me (3pts min.). @ -yes X-rays interpreted by me (1pt min.). @ -no CT interpreted by me (1pt min.). @ -yes negative for acute disease negative for acute changes U/S interpreted by me (1pt. min.). @ -no What testing was considered but not performed or refused? (CT, X-rays, U/S, labs)? Why? @ -none What meds were considered but not given or refused? Why? @ -none Did you discuss the management of the patient with other professionals (professionals i.e. , PA, SALESPERSON [employer], lab, RT, psych nurse, delinquency prevention social worker, l tacker, teacher, dairy quality assurance officer, field operations manager)? Give summary @ -no Was smoking cessation discussed for >3mins.? @ -no Was critical care preformed (if so, how long)? @ -no Were there social determinants of health that impacted care today? How? (Homelessness, low income, unemployed, alcoholism, drug addiction, transportation, low edu. Level, literacy, decrease access to med. care, usp, rehab)? @ -none Was there de-escalation of care discussed even if they declined (Discuss DNR or withdrawal of care, Hospice)? DNR status @ -no What co-morbidities impacted this encounter? (DM, HTN, Smoking, COPD, CAD, Cancer, CVA, ARF, Chemo, Hep., AIDS, mental health diagnosis, sleep apnea, morbid obesity)? @ -none Was patient admitted / discharged? Hospital course, mention meds given and route, prescriptions, significant lab abnormalities, going to OR and other pertinent info. @ - 58-year-old male to ER for evaluation of altered mental status weakness near syncope failure to thrive secondary to underlying history of cancer Admitted Undiagnosed new problem with uncertain prognosis? @ -no Drug Therapy requiring intensive monitoring for toxicity (Heparin, Nitro, Insulin, Cardizem)? @ -no Were any procedures done? @ -no Diagnosis/symptom? @ -Altered mental status weakness near syncope Acute, or Chronic, or Acute on Chronic? @ -Acute Uncomplicated (without systemic symptoms) or Complicated (systemic symptoms)? @ -Complicated Side effects of treatment? @ -no Exacerbation, Progression, or Severe Exacerbation? @ -exacerbation Poses a threat to life or bodily function? How? (Chest pain, [place], [place], pneumonia, PE, COPD, DKA, ARF, appy, cholecystitis, CVA, Diverticulitis, Homicidal, Suicidal, threat to staff... and all critical care pts) @ -yes underlying cancer Reevaluation #5: Differential Weakness: Hypoglycemia, shock, sepsis, hyponatremia, anemia, infection, [place], ETOH, adverse medicine reaction, overdose, stroke, this is not meant to be an all-inclusive list. - Consultations Consultation #1: Spoke with admitting physicians who agreed to admit this patient EKG Findings - EKG Comments: EKG Findings:: EKG is sinus tachycardia 110 IA 120 QRS 107 QTc 405 Medical Decision Making - Medical Decision Making 58-year-old male to ER for evaluation of altered mental status weakness near syncope failure to thrive secondary to underlying history of cancer - Lab Data Result diagrams: 09/12/24 08:35 09/12/24 08:35 Lab Results 09/08/24 09/08/24 09/08/24 Range/Units 17:06 17:06 17:06 WBC 2.4 L (3.8-10.6) k/uL RBC 3.92 L (4.30-5.90) m/uL Hgb 10.7 L (13.0-17.5) gm/dL Hct 33.3 L (39.0-53.0) % MCV 85.0 (80.0-100.0) fL MCH 27.2 (25.0-35.0) pg MCHC 32.0 (31.0-37.0) g/dL RDW 14.2 (11.5-15.5) % Plt Count 100 L (150-450) k/uL MPV 8.3 Neutrophils % (Manual) 58 % Lymphocytes % (Manual) 28 % Monocytes % (Manual) 7 % Eosinophils % (Manual) 7 % Neutrophils # (Manual) 1.39 (1.3-7.7) k/uL Lymphocytes # (Manual) 0.67 L (1.0-4.8) k/uL Monocytes # (Manual) 0.17 (0-1.0) k/uL Eosinophils # (Manual) 0.17 (0-0.7) k/uL Nucleated RBCs 0 (0-0) /100 WBC Manual Slide Review Performed Hypochromasia Slight PT 11.6 (10.0-12.5) sec INR 1.1 (<1.2) APTT 30.6 H (22.0-30.0) sec Sodium 132 L (137-145) mmol/L Potassium 3.2 L (3.5-5.1) mmol/L Chloride 101 (98-107) mmol/L Carbon Dioxide 20 L (22-30) mmol/L Anion Gap 11 mmol/L BUN 20 (9-20) mg/dL Creatinine 1.58 H (0.66-1.25) mg/dL Est GFR (CKD-EPI)AfAm 54 (>60 ml/min/1.73 sqM) Est GFR (CKD-EPI)NonAf 47 (>60 ml/min/1.73 sqM) Glucose 150 H (74-99) mg/dL Calcium 8.0 L (8.4-10.2) mg/dL Magnesium 1.5 L (1.6-2.3) mg/dL Total Bilirubin 0.5 (0.2-1.3) mg/dL AST 25 (17-59) U/L ALT 11 (4-49) U/L Alkaline Phosphatase 93 (38-126) U/L Troponin I (0.000-0.034) ng/mL Total Protein 7.5 (6.3-8.2) g/dL Albumin 3.6 (3.5-5.0) g/dL TSH 5.480 H (0.465-4.680) mIU/L Influenza Type A (PCR) (Not Detectd) Influenza Type B (PCR) (Not Detectd) RSV (PCR) (Not Detectd) SARS-CoV-2 (PCR) (Not Detectd) 09/08/24 09/08/24 Range/Units 17:06 17:06 WBC (3.8-10.6) k/uL RBC (4.30-5.90) m/uL Hgb (13.0-17.5) gm/dL Hct (39.0-53.0) % MCV (80.0-100.0) fL MCH (25.0-35.0) pg MCHC (31.0-37.0) g/dL RDW (11.5-15.5) % Plt Count (150-450) k/uL MPV Neutrophils % (Manual) % Lymphocytes % (Manual) % Monocytes % (Manual) % Eosinophils % (Manual) % Neutrophils # (Manual) (1.3-7.7) k/uL Lymphocytes # (Manual) (1.0-4.8) k/uL Monocytes # (Manual) (0-1.0) k/uL Eosinophils # (Manual) (0-0.7) k/uL Nucleated RBCs (0-0) /100 WBC Manual Slide Review Hypochromasia PT (10.0-12.5) sec INR (<1.2) APTT (22.0-30.0) sec Sodium (137-145) mmol/L Potassium (3.5-5.1) mmol/L Chloride (98-107) mmol/L Carbon Dioxide (22-30) mmol/L Anion Gap mmol/L BUN (9-20) mg/dL Creatinine (0.66-1.25) mg/dL Est GFR (CKD-EPI)AfAm (>60 ml/min/1.73 sqM) Est GFR (CKD-EPI)NonAf (>60 ml/min/1.73 sqM) Glucose (74-99) mg/dL Calcium (8.4-10.2) mg/dL Magnesium (1.6-2.3) mg/dL Total Bilirubin (0.2-1.3) mg/dL AST (17-59) U/L ALT (4-49) U/L Alkaline Phosphatase (38-126) U/L Troponin I 0.014 (0.000-0.034) ng/mL Total Protein (6.3-8.2) g/dL Albumin (3.5-5.0) g/dL TSH (0.465-4.680) mIU/L Influenza Type A (PCR) Not Detected (Not Detectd) Influenza Type B (PCR) Not Detected (Not Detectd) RSV (PCR) Not Detected (Not Detectd) SARS-CoV-2 (PCR) Not Detected (Not Detectd) - EKG Data -: EKG Interpreted by Me - Radiology Data Radiology results: report reviewed (CT brain CT chest abdomen pelvis negative for acute changes), image reviewed Disposition Clinical Impression: Multiple myeloma, Dehydration, Failure to thrive, Near syncope Disposition: ADMITTED IP TO THIS HOSP Condition: Fair Is patient prescribed a controlled substance at d/c from ED?: No Time of Disposition: 20:00
[2024-09-08] MEDS: SODIUM CHLORIDE 0.9% 1,000 ML IV STA ×2 (17:12→20:40)
[2024-09-08 17:23] LABS: HCT 33.3 % (39.0-53.0); HGB 10.7 gm/dL (13.0-17.5); Hypochromasia Slight; MCH 27.2 pg (25.0-35.0); Mean Platelet Volume 8.3; RBC 3.92 m/uL (4.30-5.90); RDW 14.2 % (11.5-15.5); WBC 2.4 k/uL (3.8-10.6)
[2024-09-08 17:36] LABS: ALT 11 U/L (4-49); AST 25 U/L (17-59); African American GFR (CKD) 54 (>60 ml/min/1.73 sqM); Albumin 3.6 g/dL (3.5-5.0); Alkaline Phosphatase 93 U/L (38-126); Anion Gap 11 mmol/L; Blood Urea Nitrogen 20 mg/dL (9-20); Carbon Dioxide 20 mmol/L (22-30); Chloride 101 mmol/L (98-107); Glucose 150 mg/dL (74-99); Magnesium 1.5 mg/dL (1.6-2.3); Non-African American GFR(CKD) 47 (>60 ml/min/1.73 sqM); Potassium 3.2 mmol/L (3.5-5.1); Sodium 132 mmol/L (137-145); Total Bilirubin 0.5 mg/dL (0.2-1.3); Total Protein 7.5 g/dL (6.3-8.2)
[2024-09-08 17:53] LABS: INR 1.1 (<1.2); Partial Thromboplastin Time 30.6 sec (22.0-30.0); Prothrombin Time 11.6 sec (10.0-12.5)
[2024-09-08 17:54] LABS: Platelet Count 100 k/uL (150-450)
[2024-09-08 18:18] LABS: Eosinophils # (M) 0.17 k/uL (0-0.7); Lymphocytes # (M) 0.67 k/uL (1.0-4.8); Monocytes # (M) 0.17 k/uL (0-1.0); Neutrophils # (M) 1.39 k/uL (1.3-7.7); Neutrophils % (M) 58 %; Nucleated Red Blood Cells 0 /100 WBC (0-0); Total Cells Counted 100
[2024-09-08] MEDS: MAGNESIUM OXIDE 400 MG TAB PO STA ×2 (18:26)
[2024-09-08] MEDS: POTASSIUM BICARBONATE/CIT AC 20 MEQ TABLET.EFF PO ONE ×2 (18:35)
[2024-09-08] MEDS ORDERED: HYDROmorphone 2 MG/ML 1 ML SYRINGE IVP PRN (19:59)
[2024-09-08] MEDS ORDERED: ONDANSETRON 4 MG/2 ML VIAL IVP PRN (19:59)
[2024-09-08] MEDS ORDERED: NALOXONE 0.4 MG/ML 1 ML VIAL IV PRN (19:59)
[2024-09-08] MEDS: SODIUM CHLORIDE 0.9% 1,000 ML IV SCH (20:40)
[2024-09-08 20:53] LABS: Appearance,Urine Clear (Clear); Bilirubin,Urine Negative (Negative); Blood,Urine Negative (Negative); Color,Urine Yellow; Glucose,Urine (UA) Negative (Negative); Ketones,Urine Negative (Negative); Leukocyte Esterase,Urine Trace (Negative); Mucus,Urine Rare /hpf; Nitrite,Urine Negative (Negative); PH, Urine 5.5 (5.0-8.0); Protein,Urine 1+ (Negative); RBC,Urine 1 /hpf (0-5); Specific Gravity,Urine 1.012 (1.001-1.035); Squamous Epithelial Cell,Urine <1 /hpf (0-4); Urobilinogen,Urine <2.0 mg/dL (<2.0); WBC,Urine 3 /hpf (0-5)
--- NOTE | 2024-09-08 20:55 | CT ---
EXAMINATION TYPE: CT brain wo con DATE OF EXAM: 09/08/2024 8:36 PM COMPARISON: None. CLINICAL INDICATION: Male, 58 years old with history of mitchell, general weakness and productive cough w/ chills. TECHNIQUE: CT of the brain is performed utilizing 3 mm thick sections through the posterior fossa and 3 mm thick sections through the remaining calvarium. Study is performed within 24 hours of arrival to the hospital. Contrast used: mL of , (none if empty) Oral contrast used: (none if empty) CT DLP: 1260 mGycm, Automated exposure control for dose reduction was used. FINDINGS: No abnormal hyperdensity is present to suggest an acute intracranial hemorrhage. No mass lesion is evident. No acute infarcts are evident. Ventricles and sulci are appropriate for the patient age. Paranasal sinuses and mastoid air cells within the [id number] are clear. IMPRESSION: 1. No acute intracranial process. Follow up MRI can be performed as clinically indicated. [facility], , 09/08/2024 8:53 PM
--- NOTE | 2024-09-08 21:02 | CT ---
EXAMINATION TYPE: CT ChestAbdPelvis w con DATE OF EXAM: 09/08/2024 8:37 PM COMPARISON: None. CLINICAL INDICATION: Male, 58 years old with history of mitchell, general weakness and productive cough w/ chills. Pt unable to raise arms. Unable to scan kidney delay due to scanner overheating. TECHNIQUE: Axial images at 5 mm thick sections. Reconstructed images in the coronal plane. Delayed images through the kidneys. Contrast used:80ml mL of Isovue 300 with IV Contrast, (none if empty) Oral contrast used: without Oral Contrast (none if empty) CT DLP: 3204 mGycm, Automated exposure control for dose reduction was used. FINDINGS: CT CHEST: Portion of the thyroid visualized is normal. No suspicious lung nodules or focal infiltrates are present. No enlarged mediastinal or hilar adenopathy is evident. The ascending aorta diameter at the level of the main pulmonary artery is 3.5 cm. The main pulmonary artery diameter at the bifurcation is 3.3 cm. Minimal coronary artery calcification is present. CT ABDOMEN: Lap band is present. Liver: Enlarged at 22.2 cm Spleen: Enlarged and 15.7 cm. Pancreas: Normal Adrenal glands: The adrenal glands are normal. Gallbladder: Normal Kidneys: No masses are evident. No hydronephrosis is present. No cysts are present. Multiple punct ate calcifications are within the upper poles bilateral kidneys. There is a 0.6 cm calcification at t he inferior pole right kidney. Aorta: Vascular calcification is within the aorta. Inferior vena cava: Flattened which can be related to the patient's volume status. CT PELVIS: Loops of bowel within the abdomen and pelvis are normal. Study is without oral contrast limiting bowel evaluation. There are a few diverticuli within the sigmoid colon. No adjacent inflammatory guajardo ges evident. Appendix: Normal as visualized. Urinary bladder: Normal. Genitourinary structures: Prostate appears normal Osseous structures: No suspicious lytic or sclerotic lesions. There is a left hip prosthesis. Degener ative disc changes are within the scoliotic lumbar spine IMPRESSION: 1. Hepatosplenomegaly. 2. Multiple punctate nonobstructing renal stones bilaterally. The largest renal calcifications at the inferior right kidney measuring 0.6 cm. [facility], , 09/08/2024 8:59 PM
[2024-09-09] MEDS: PARoxetine 20 MG TAB PO SCH (08:09)
[2024-09-09] MEDS: amLODIPine 10 MG TAB PO SCH (08:09)
[2024-09-09] MEDS: PANTOPRAZOLE 40 MG TABLET PO SCH (08:09)
[2024-09-09] MEDS ORDERED: PANTOPRAZOLE 40 MG/10 ML VIAL IV SCH (09:00)
[2024-09-09 09:35] LABS: ALT 8 U/L (10-49); AST 23 U/L (14-35); Albumin 3.2 g/dL (3.8-4.9); Albumin/Globulin Ratio 0.89 Ratio (1.60-3.17); Alkaline Phosphatase 86 U/L (41-126); BUN/Creat Ratio 15.83 Ratio (12.00-20.00); Calcium 7.7 mg/dL (8.7-10.3); Carbon Dioxide 21.4 mmol/L (21.6-31.8); Chloride 102 mmol/L (96-109); Globulin 3.6 g/dL (1.6-3.3); Glucose 175 mg/dL (70-110); Magnesium 1.7 mg/dL (1.5-2.4); Phosphorus 2.5 mg/dL (2.4-5.1); Potassium 3.9 mmol/L (3.5-5.5); Sodium 135 mmol/L (135-145); Total Bilirubin <0.2 mg/dL (0.3-1.2); Total Protein 6.8 g/dL (6.2-8.2)
--- NOTE | 2024-09-09 10:00 | CONS ---
CONSULTATION CHIEF COMPLAINT: Syncope. HISTORY OF PRESENT ILLNESS: This is a 58-year-old patient with chronic musculoskeletal pain, hypertension, history of multiple myeloma that has been in remission for more than 4 years, comes to hospital with symptoms of shortness of breath with activity and near syncope at home. He lives in a trailer home and his physical activity is very limited. He usually walks with a cane. He does not have any chest pain and there is no prior history of coronary artery disease or congestive heart failure. He states that he has not been able to cook for the last 3 days and has not been eating well. He reports that he is becoming short of breath, fatigued and tired just with very minimal activity. At the time of my evaluation in the emergency room, he is comfortable at rest. Vital signs are stable. EKG shows sinus tachycardia with PVCs. Cardiac enzymes are negative. TSH is elevated at 5.4. Potassium is low at 3.2. Creatinine is 1.5 and his hemoglobin is 10.7. UA is negative. The patient is on [place] and takes 4 pills every day. He is also on trazodone and Xanax. He has history of depression and takes capsule for the same. He does not think he took too many [place]'s inadvertently. PAST MEDICAL HISTORY: Significant for chronic musculoskeletal pain, hypertension, dyslipidemia. CURRENT MEDICATIONS: Include, 1. Z-Jude. 2. Xanax. 3. Desyrel. 4. Norvasc. 5. Flomax. 6. Paxil. 7. Omeprazole. 8. Motrin. 9. [place]. ALLERGIES: To Dilaudid, Demerol, and lisinopril. FAMILY HISTORY: Negative for premature coronary artery disease. SOCIAL HISTORY: Negative for current smoking, EtOH abuse, or drug abuse. REVIEW OF SYSTEMS: HEENT: Unremarkable. CARDIAC: As described above. RESPIRATORY: As described above. GI: Negative. GENITOURINARY: Negative. MUSCULOSKELETAL: Significant for chronic back pain. CONSTITUTIONAL: Significant for fatigue, tiredness, and not feeling well. HOME IMPROVEMENT ADVISOR: Negative. Rest of the system review is not relevant. PHYSICAL EXAMINATION: GENERAL: The patient is comfortable at rest. VITAL SIGNS: Afebrile. Heart rate is 90 beats per minute. Blood pressure is 140/80, respiratory rate is 18, O2 saturation is 96% on room air. NECK: There is no jugular venous distention. Carotid upstroke is normal. There is no bruit. CHEST: Reveals good air entry bilaterally. HEART: Reveals first and second heart sounds. No gallop. No murmur. ABDOMEN: Soft. EXTREMITIES: Reveals mild edema. Peripheral pulses are palpable. LABORATORY DATA: Show that creatinine is 1.5. Troponins are negative. ASSESSMENT: Exertional fatigue, tiredness, and not feeling well. The exact etiology is unclear. Could be multifactorial including anemia, hypokalemia, morbid obesity, the pain pills. PLAN: From cardiac standpoint, there is no evidence of myocardial infarction. The patient does not seem to be in congestive heart failure clinically. I will obtain a 2D echo to evaluate LV function and I will check a D-dimer on him to rule out pulmonary embolism. Further recommendations based on how his condition evolves. Please supplement the potassium to maintain it around 4. MMODL / IJN: [id number] /
[2024-09-09 10:25] LABS: Basophils # (A) 0.01 X 10*3/uL (0.00-0.10); Basophils % (A) 0.6 %; Eosinophils # (A) 0.26 X 10*3/uL (0.04-0.35); Eosinophils % (A) 14.9 %; HGB 9.2 g/dL (13.0-17.0); Immature Platelet Fraction 3.8 % (1.1-6.1); Lymphocytes # (A) 0.61 X 10*3/uL (0.90-5.00); Lymphocytes % (A) 35.1 %; MCH 27.1 pg (27.0-32.0); MCHC 31.7 g/dL (32.0-37.0); MCV 85.3 FL (80.0-97.0); Mean Platelet Volume 10.5 FL (9.5-12.2); Monocytes % (A) 11.5 %; NRBC Per 100 WBC 0 X 10*3/uL (0.00-0.01); Neutrophils # (A) 0.64 X 10*3/uL (1.80-7.70); Neutrophils % (A) 36.8 %; Platelet Count 71 X 10*3/uL (140-440); RDW 13.6 % (11.5-14.5); WBC 1.74 X 10*3/uL (4.50-10.00)
--- NOTE | 2024-09-09 12:02 | CA ---
Transthoracic Echo Report Name: Reid Chandler Age: 58 Gender: M : 1965 Exam Date: 09/09/2024 09:39 Exam Location: [place] [facility] Ht (in): 71 Wt (lb): 340 Ordering Physician: Perez Pennington MD Attending/Referring Phys: Implementation Lead Drea Patiño RDCS Procedure CPT: Indications: tachycardia/syncope Cardiac Hx: Technical Quality: Technically difficult study Contrast 1: Definity Total Dose (mL): 2 Contrast 2: Total Dose (mL): MEASUREMENTS (Male / Female) Normal Values 2D ECHO LV Diastolic Diameter PLAX 5.6 cm 4.2 - 5.9 / 3.9 - 5.3 cm LV Systolic Diameter PLAX 4.6 cm IVS Diastolic Thickness 1.1 cm 0.6 - 1.0 / 0.6 - 0.9 cm LVPW Diastolic Thickness 1.0 cm 0.6 - 1.0 / 0.6 - 0.9 cm LV Relative Wall Thickness 0.4 LA Systolic Diameter LX 3.6 cm 3.0 - 4.0 / 2.7 - 3.8 cm LV Diastolic Volume MOD BP 92.3 cm??? 67 - 155 / 56 - 104 cm??? LV Systolic Volume MOD BP 39.3 cm??? 22 - 58 / 19 - 49 cm??? LV Ejection Fraction MOD BP 57.5 % >= 55 % LV Cardiac Index MOD BP 1707.0 cm???/min???m??? LV Diastolic Volume MOD 4C 67.7 cm??? LV Systolic Volume MOD 4C 38.6 cm??? LV Ejection Fraction MOD 4C 43.1 % LV Cardiac Index MOD 4C 938.7 cm???/min???m??? LV Diastolic Length 4C 8.3 cm LV Systolic Length 4C 8.0 cm LV Diastolic Volume MOD 2C 100.9 cm??? LV Systolic Volume MOD 2C 49.8 cm??? LV Ejection Fraction MOD 2C 50.6 % LV Cardiac Index MOD 2C 1645.3 cm???/min???m??? LV Diastolic Length 2C 9.1 cm LV Systolic Length 2C 8.2 cm M-MODE Aortic Root Diameter MM 3.5 cm LA Systolic Diameter MM 2.7 cm LA Ao Ratio MM 0.8 DOPPLER AV Peak Velocity 160.0 cm/s AV Peak Gradient 10.2 mmHg Mitral E Point Velocity 104.8 cm/s Mitral A Point Velocity 122.6 cm/s Mitral E to A Ratio 0.9 MV Deceleration Time 225.3 ms MV E' Velocity 6.2 cm/s Mitral E to MV E' Ratio 17.0 TR Peak Velocity 284.6 cm/s TR Peak Gradient 32.4 mmHg Right Ventricular Systolic Press 42.5 mmHg FINDINGS Left Ventricle Left ventricular ejection fraction is estimated at 45-50 %. Left ventricular cavity size normal. Mildly increased septal wall thickness. No obvious regional wall motion abnormalities. Right Ventricle Right ventricle not well visualized. Mild pulmonary hypertension. Right Atrium Normal right atrial size. No right atrial thrombus or mass seen. Left Atrium Normal left atrial size. No left atrial thrombus or mass present. Mitral Valve Structurally normal mitral valve. Mitral annular calcification. Trace mitral regurgitation. Aortic Valve Trileaflet aortic valve. No aortic valve stenosis or regurgitation. Tricuspid Valve Structurally normal tricuspid valve. Mild tricuspid regurgitation. Pulmonic Valve Structurally normal pulmonic valve. Trace pulmonic regurgitation. Pericardium No pericardial or pleural effusion. Aorta Normal size aortic root and proximal ascending aorta. CONCLUSIONS Mild LV systolic dysfunction with an ejection fraction of 45-50% Mild pulmonary hypertension Previewed by: Dr. Marvin Ricks MD (Electronically Signed) Final Date: 09 September 2024 12:02
--- NOTE | 2024-09-09 12:56 | P.HPIM ---
History of Present Illness H&P Date: 09/09/24 Chief Complaint: Mobility and balance issues. The patient is here essentially as a 58-year-old white male with known history of multiple myeloma who has been having difficulty with balance. Syncopal episode at home and significant weakness. He was recently admitted less than 2 weeks ago with allergic dermatitis. Underlying history of poorly controlled diabetes with gastric bypass in the remote past. Review of Systems Constitutional: Denies chills, Denies fever Eyes: denies blurred vision, denies pain Cardiovascular: Denies chest pain, Denies shortness of breath Gastrointestinal: Denies abdominal pain, Denies diarrhea, Denies nausea, Denies vomiting Neurological: Reports balance difficulties Psychiatric: Denies anxiety, Denies depression Past Medical History Past Medical History: Cancer, Diabetes Mellitus, Hypertension, Myocardial Infarction ([place]) Additional Past Medical History / Comment(s): gout, chronic back/hip pain, multiple myeloma Last Myocardial Infarction Date:: 02/04/21 History of Any Multi-Drug Resistant Organisms: None Reported Past Surgical History: Orthopedic Surgery Additional Past Surgical History / Comment(s): thymus gland removal, HIP SURGERY., lap band by romelt Past Anesthesia/Blood Transfusion Reactions: No Reported Reaction Past Psychological History: Depression Smoking Status: Former smoker Past Alcohol Use History: None Reported Past Drug Use History: None Reported Medications and Allergies Home Medications Medication Instructions Recorded Confirmed Type PARoxetine HCL [Paxil] 40 mg PO DAILY 04/29/14 09/08/24 History HYDROcodone/APAP 10-325MG [[place] 1 tab PO QID 08/24/16 09/08/24 History 10-325] Omeprazole 40 mg PO AC-BRKFST 02/04/21 09/08/24 History amLODIPine [Norvasc] 10 mg PO DAILY 03/14/21 09/08/24 History ALPRAZolam [Xanax] 1 mg PO HS 08/15/24 09/08/24 History Ibuprofen [Motrin] 800 mg PO TID 08/15/24 09/08/24 History Tamsulosin [Flomax] 0.4 mg PO HS 08/15/24 09/08/24 History traZODone HCL [Desyrel] 100 mg PO HS 08/15/24 09/08/24 History Azithromycin [Zithromax Z Pack] See Taper PO DIRECTED 09/08/24 09/08/24 History Allergies Allergy/AdvReac Type Severity Reaction Status Date / Time lisinopril Allergy Rash/Hives Verified 09/08/24 20:31 hydromorphone HCl AdvReac Hallucinati Verified 09/08/24 20:31 [From Dilaudid] ons meperidine HCl [From Demerol] AdvReac Hallucinati Verified 09/08/24 20:31 ons Physical Exam Vitals: Vital Signs Temp Pulse Pulse Resp BP BP Pulse Ox 09/09/24 08:00 97.8 F 98 17 143/80 09/09/24 06:19 89 18 142/85 96 09/08/24 19:15 87 16 117/76 96 09/08/24 17:47 87 131/81 09/08/24 17:42 99.1 F 98 18 106/68 95 09/08/24 16:13 97.7 F 110 H 20 90/59 99 Intake and Output 09/08/24 09/09/24 09/09/24 22:59 06:59 14:59 Other: Weight 154.221 kg - Constitutional General appearance: morbidly obese - Neck Neck: no lymphadenopathy - Respiratory Respiratory: bilateral: diminished - Cardiovascular Rhythm: regular Heart sounds: normal: S1, S2 Abnormal Heart Sounds: no S3 Gallop - Neurologic Neurologic: CNII-XII intact - Musculoskeletal Musculoskeletal: generalized weakness Results CBC & Chem 7: 09/09/24 04:45 09/09/24 04:45 Labs: Abnormal Lab Results - Last 24 Hours (Table) 09/08/24 09/08/24 09/08/24 Range/Units 17:06 17:06 17:06 WBC 2.4 L (3.8-10.6) k/uL RBC 3.92 L (4.30-5.90) m/uL Hgb 10.7 L (13.0-17.5) gm/dL Hct 33.3 L (39.0-53.0) % MCHC (32.0-37.0) g/dL Plt Count 100 L (150-450) k/uL Neutrophils # (1.80-7.70) X 10*3/uL Lymphocytes # (0.90-5.00) X 10*3/uL Lymphocytes # (Manual) 0.67 L (1.0-4.8) k/uL APTT 30.6 H (22.0-30.0) sec D-Dimer (<0.60) mg/L FEU Sodium 132 L (137-145) mmol/L Potassium 3.2 L (3.5-5.1) mmol/L Carbon Dioxide 20 L (22-30) mmol/L Creatinine 1.58 H (0.66-1.25) mg/dL Glucose 150 H (74-99) mg/dL Calcium 8.0 L (8.4-10.2) mg/dL Magnesium 1.5 L (1.6-2.3) mg/dL Total Bilirubin (0.3-1.2) mg/dL ALT (10-49) U/L Albumin (3.8-4.9) g/dL Globulin (1.6-3.3) g/dL Albumin/Globulin Ratio (1.60-3.17) Ratio TSH 5.480 H (0.465-4.680) mIU/L Urine Protein (Negative) Ur Leukocyte Esterase (Negative) Urine Mucus (None) /hpf 09/08/24 09/09/24 09/09/24 Range/Units 20:05 04:45 04:45 WBC 1.74 L (3.8-10.6) k/uL RBC 3.40 L (4.30-5.90) m/uL Hgb 9.2 L (13.0-17.5) gm/dL Hct 29.0 L (39.0-53.0) % MCHC 31.7 L (32.0-37.0) g/dL Plt Count 71 L (150-450) k/uL Neutrophils # 0.64 L (1.80-7.70) X 10*3/uL Lymphocytes # 0.61 L (0.90-5.00) X 10*3/uL Lymphocytes # (Manual) (1.0-4.8) k/uL APTT (22.0-30.0) sec D-Dimer (<0.60) mg/L FEU Sodium (137-145) mmol/L Potassium (3.5-5.1) mmol/L Carbon Dioxide 21.4 L (22-30) mmol/L Creatinine (0.66-1.25) mg/dL Glucose 175 H (74-99) mg/dL Calcium 7.7 L (8.4-10.2) mg/dL Magnesium (1.6-2.3) mg/dL Total Bilirubin <0.2 L (0.3-1.2) mg/dL ALT 8 L (10-49) U/L Albumin 3.2 L (3.8-4.9) g/dL Globulin 3.6 H (1.6-3.3) g/dL Albumin/Globulin Ratio 0.89 L (1.60-3.17) Ratio TSH (0.465-4.680) mIU/L Urine Protein 1+ H (Negative) Ur Leukocyte Esterase Trace H (Negative) Urine Mucus Rare H (None) /hpf 09/09/24 Range/Units 08:56 WBC (3.8-10.6) k/uL RBC (4.30-5.90) m/uL Hgb (13.0-17.5) gm/dL Hct (39.0-53.0) % MCHC (32.0-37.0) g/dL Plt Count (150-450) k/uL Neutrophils # (1.80-7.70) X 10*3/uL Lymphocytes # (0.90-5.00) X 10*3/uL Lymphocytes # (Manual) (1.0-4.8) k/uL APTT (22.0-30.0) sec D-Dimer 6.05 H (<0.60) mg/L FEU Sodium (137-145) mmol/L Potassium (3.5-5.1) mmol/L Carbon Dioxide (22-30) mmol/L Creatinine (0.66-1.25) mg/dL Glucose (74-99) mg/dL Calcium (8.4-10.2) mg/dL Magnesium (1.6-2.3) mg/dL Total Bilirubin (0.3-1.2) mg/dL ALT (10-49) U/L Albumin (3.8-4.9) g/dL Globulin (1.6-3.3) g/dL Albumin/Globulin Ratio (1.60-3.17) Ratio TSH (0.465-4.680) mIU/L Urine Protein (Negative) Ur Leukocyte Esterase (Negative) Urine Mucus (None) /hpf Assessment and Plan (1) Tachycardia Current Visit: Yes Status: Acute Code(s): R00.0 - TACHYCARDIA, UNSPECIFIED SNOMED Code(s): 5382780 (2) Syncope Current Visit: Yes Status: Acute Code(s): R55 - SYNCOPE AND COLLAPSE SNOMED Code(s): 307309649 (3) Fall Current Visit: Yes Status: Acute Code(s): W19.XXXA - UNSPECIFIED FALL, INITIAL ENCOUNTER SNOMED Code(s): 3502380 (4) Multiple myeloma Current Visit: No Status: Chronic Priority: High Code(s): C90.00 - MULTIPLE MYELOMA NOT HAVING ACHIEVED REMISSION SNOMED Code(s): 946521121 Plan: Check echocardiogram. Cardiology has been consulted as has hematology/oncology. Reconcile the medications. [place] [facility]. Check CBC and CMP in a.m. The patient is otherwise a full code. Time with Patient: Greater than 30
[2024-09-09 15:30] LABS: Immunoglobulin M 35.4 mg/dL (40.0-280.0); Protein, Total 6.6 g/dL (6.2-8.2)
[2024-09-09] MEDS ORDERED: HYDROmorphone 1 MG/ML 1 ML SYRINGE IVP PRN (15:55)
--- NOTE | 2024-09-09 17:42 | P.CONS ---
History of Present Illness - Reason for Consult Consult date: 09/09/24 hx multiple myeloma Requesting physician: Aldo Corcoran - Chief Complaint weakness, dizziness - History of Present Illness Patient is a 58 year old male with a significant history of multiple myeloma. He is a patient of Dr. Méndez. Patient was referred to our clinic for anemia in 07/2020. 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 This level was highly suspicious for overt myeloma. The patient was therefore recommended bone marrow aspiration biopsy which was performed on 09/24/20. This confirmed multiple myeloma, with about 80% involvement of the bone marrow with lambda restricted plasma cells. Multiple myeloma FISH study was negative. Patient was recommended treatment with revlimid completed 6 cycles. Patient then started treatment with Velcade in 11/2020 and completed 6 cycles in March 2021. He continued on decadron and revlimid. The patient was referred to the [facility] to be evaluated for an auto SCT. Revlimid was held in 08/22 and the patient for possible stem cell harvest. He had bone marrow repeated as part of pre-op workup in 09/22 showing about a 5% population of lambda restricted plasma cells. Proceeded to transplant on 03/01/22. The patient was started on maintenance Revlimid in late 05/23. Patients last visit in clinic was in 11/2022. He was reported some increase in fatigue and shortness of breath on exertion. CBC showed hemoglobin of 8.6, WBC 1.62, and plt 68.5. The patient's new pancytopenia was discussed with him. Clinically it was felt to be most likely due to the lenalidomide effect. He was advised to hold the medication. Further workup was ordered to rule out other causes, including recurrent myeloma. However these were felt to be less likely clinically. He was instructed to f/u in 3 weeks but has not followed in clinic since. He has since been following with Dr Romero at [facility] and has continued on Revlimid, but has been off medication for the last 2 months. Patient presented to the ER for generalized weakness, decreased oral intake, dizziness and SOB. Upon admit chest CT chest abdomen and pelvis with contrast showed hepatosplenomegaly,. Multiple punctate nonobstructing renal stones bilaterally CT brain without contrast showed no acute intracranial processes. Labs reviewed, WBC 1.74, ANC 0.64, hemoglobin 9.2, MCV 85.3, platelets 71,000. Creatinine 1.2, GFR 69. D-dimer elevated at 6.05, troponins negative. LFTs and bilirubin WNL. Cardiology following, echocardiogram ordered. Review of Systems 10 point ROS is negative except as stated in the HPI Past Medical History Past Medical History: Cancer, Diabetes Mellitus, Hypertension, Myocardial Infarction ([place]) Additional Past Medical History / Comment(s): gout, chronic back/hip pain, multiple myeloma Last Myocardial Infarction Date:: 02/04/21 History of Any Multi-Drug Resistant Organisms: None Reported Past Surgical History: Orthopedic Surgery Additional Past Surgical History / Comment(s): thymus gland removal, HIP SURGERY., lap band by romelt Past Anesthesia/Blood Transfusion Reactions: No Reported Reaction Past Psychological History: Depression Smoking Status: Former smoker Past Alcohol Use History: None Reported Past Drug Use History: None Reported Medications and Allergies Home Medications Medication Instructions Recorded Confirmed Type PARoxetine HCL [Paxil] 40 mg PO DAILY 04/29/14 09/08/24 History HYDROcodone/APAP 10-325MG [[place] 1 tab PO QID 08/24/16 09/08/24 History 10-325] Omeprazole 40 mg PO AC-BRKFST 02/04/21 09/08/24 History amLODIPine [Norvasc] 10 mg PO DAILY 03/14/21 09/08/24 History ALPRAZolam [Xanax] 1 mg PO HS 08/15/24 09/08/24 History Ibuprofen [Motrin] 800 mg PO TID 08/15/24 09/08/24 History Tamsulosin [Flomax] 0.4 mg PO HS 08/15/24 09/08/24 History traZODone HCL [Desyrel] 100 mg PO HS 08/15/24 09/08/24 History Azithromycin [Zithromax Z Pack] See Taper PO DIRECTED 09/08/24 09/08/24 History Allergies Allergy/AdvReac Type Severity Reaction Status Date / Time lisinopril Allergy Rash/Hives Verified 09/09/24 16:07 hydromorphone HCl AdvReac Hallucinati Verified 09/09/24 16:07 [From Dilaudid] ons meperidine HCl [From Demerol] AdvReac Hallucinati Verified 09/09/24 16:07 ons Physical Exam Vitals: Vital Signs Temp Pulse Pulse Resp BP BP Pulse Ox 09/09/24 08:00 97.8 F 98 17 143/80 09/09/24 06:19 89 18 142/85 96 09/08/24 19:15 87 16 117/76 96 09/08/24 17:47 87 131/81 09/08/24 17:42 99.1 F 98 18 106/68 95 09/08/24 16:13 97.7 F 110 H 20 90/59 99 Intake and Output 09/08/24 09/09/24 09/09/24 22:59 06:59 14:59 Other: Weight 154.221 kg - Constitutional General appearance: average body habitus, no acute distress - EENT Eyes: anicteric sclerae, EOMI ENT: hearing grossly normal - Respiratory Respiratory: bilateral: CTA - Cardiovascular Rhythm: regular - Gastrointestinal General gastrointestinal: soft, no tenderness - Integumentary Integumentary: no cyanotic - Psychiatric Psychiatric: A&O x's 3 Results CBC & Chem 7: 09/09/24 04:45 09/09/24 04:45 Labs: Abnormal Lab Results - Last 24 Hours (Table) 09/08/24 09/08/24 09/08/24 Range/Units 17:06 17:06 17:06 WBC 2.4 L (3.8-10.6) k/uL RBC 3.92 L (4.30-5.90) m/uL Hgb 10.7 L (13.0-17.5) gm/dL Hct 33.3 L (39.0-53.0) % MCHC (32.0-37.0) g/dL Plt Count 100 L (150-450) k/uL Neutrophils # (1.80-7.70) X 10*3/uL Lymphocytes # (0.90-5.00) X 10*3/uL Lymphocytes # (Manual) 0.67 L (1.0-4.8) k/uL APTT 30.6 H (22.0-30.0) sec D-Dimer (<0.60) mg/L FEU Sodium 132 L (137-145) mmol/L Potassium 3.2 L (3.5-5.1) mmol/L Carbon Dioxide 20 L (22-30) mmol/L Creatinine 1.58 H (0.66-1.25) mg/dL Glucose 150 H (74-99) mg/dL Calcium 8.0 L (8.4-10.2) mg/dL Magnesium 1.5 L (1.6-2.3) mg/dL Total Bilirubin (0.3-1.2) mg/dL ALT (10-49) U/L Albumin (3.8-4.9) g/dL Globulin (1.6-3.3) g/dL Albumin/Globulin Ratio (1.60-3.17) Ratio TSH 5.480 H (0.465-4.680) mIU/L Urine Protein (Negative) Ur Leukocyte Esterase (Negative) Urine Mucus (None) /hpf 09/08/24 09/09/24 09/09/24 Range/Units 20:05 04:45 04:45 WBC 1.74 L (3.8-10.6) k/uL RBC 3.40 L (4.30-5.90) m/uL Hgb 9.2 L (13.0-17.5) gm/dL Hct 29.0 L (39.0-53.0) % MCHC 31.7 L (32.0-37.0) g/dL Plt Count 71 L (150-450) k/uL Neutrophils # 0.64 L (1.80-7.70) X 10*3/uL Lymphocytes # 0.61 L (0.90-5.00) X 10*3/uL Lymphocytes # (Manual) (1.0-4.8) k/uL APTT (22.0-30.0) sec D-Dimer (<0.60) mg/L FEU Sodium (137-145) mmol/L Potassium (3.5-5.1) mmol/L Carbon Dioxide 21.4 L (22-30) mmol/L Creatinine (0.66-1.25) mg/dL Glucose 175 H (74-99) mg/dL Calcium 7.7 L (8.4-10.2) mg/dL Magnesium (1.6-2.3) mg/dL Total Bilirubin <0.2 L (0.3-1.2) mg/dL ALT 8 L (10-49) U/L Albumin 3.2 L (3.8-4.9) g/dL Globulin 3.6 H (1.6-3.3) g/dL Albumin/Globulin Ratio 0.89 L (1.60-3.17) Ratio TSH (0.465-4.680) mIU/L Urine Protein 1+ H (Negative) Ur Leukocyte Esterase Trace H (Negative) Urine Mucus Rare H (None) /hpf 09/09/24 Range/Units 08:56 WBC (3.8-10.6) k/uL RBC (4.30-5.90) m/uL Hgb (13.0-17.5) gm/dL Hct (39.0-53.0) % MCHC (32.0-37.0) g/dL Plt Count (150-450) k/uL Neutrophils # (1.80-7.70) X 10*3/uL Lymphocytes # (0.90-5.00) X 10*3/uL Lymphocytes # (Manual) (1.0-4.8) k/uL APTT (22.0-30.0) sec D-Dimer 6.05 H (<0.60) mg/L FEU Sodium (137-145) mmol/L Potassium (3.5-5.1) mmol/L Carbon Dioxide (22-30) mmol/L Creatinine (0.66-1.25) mg/dL Glucose (74-99) mg/dL Calcium (8.4-10.2) mg/dL Magnesium (1.6-2.3) mg/dL Total Bilirubin (0.3-1.2) mg/dL ALT (10-49) U/L Albumin (3.8-4.9) g/dL Globulin (1.6-3.3) g/dL Albumin/Globulin Ratio (1.60-3.17) Ratio TSH (0.465-4.680) mIU/L Urine Protein (Negative) Ur Leukocyte Esterase (Negative) Urine Mucus (None) /hpf CT scan - abdomen: report reviewed CT scan - chest: report reviewed CT Scan - head: report reviewed CT scan - pelvis: report reviewed Assessment and Plan (1) Dehydration Current Visit: Yes Status: Acute Priority: High Code(s): E86.0 - DEHYDRATION SNOMED Code(s): 29244224 (2) Near syncope Current Visit: Yes Status: Acute Priority: High Code(s): R55 - SYNCOPE AND COLLAPSE SNOMED Code(s): 365252018 (3) Multiple myeloma Current Visit: No Status: Chronic Priority: High Code(s): C90.00 - MULTIPLE MYELOMA NOT HAVING ACHIEVED REMISSION SNOMED Code(s): 130814660 Plan: Dehydration, weakness, dizziness: Presented to the ER for generalized weakness, decreased oral intake, dizziness and SOB. -Upon admit chest CT chest abdomen and pelvis with contrast showed hepatosplenomegaly. Multiple punctate nonobstructing renal stones bilaterally -CT brain without contrast showed no acute intracranial processes. -D-dimer elevated at 6.05, troponins negative. -Cardiology following, echocardiogram ordered. -May benefit form VQ scan to r/o chronic thromboembolism, will await cardiology recommendations Multiple myeloma: -Oncology history as dictated in the HPI -The patient was started on maintenance Revlimid in late 05/23. Patients last visit in clinic was in 11/2022. CBC showed hemoglobin of 8.6, WBC 1.62, and plt 68.5. The patient's new pancytopenia was felt to be most likely due to the lenalidomide effect. He was advised to hold the medication. Further workup was ordered to rule out other causes, including recurrent myeloma. However these were felt to be less likely clinically. He was instructed to f/u in 3 weeks but has not followed in clinic since. He has since been following with Dr Romero at [facility] and has continued on Revlimid, but has been off medication for the last approx 2 months. -Continue to hold Revlimid will inpt -Anemia and multiple myeloma labs ordered -WBC 1.74, ANC 0.64, hemoglobin 9.2, MCV 85.3, platelets 71,000. -Continue to monitor CBC -F/u with primary oncologist upon discharge Doctor attests: I performed a history and physical examination of this patient, developed impression and plan of care. Discussed with dictator. I agree with dictators note, documented as a scribe.
[2024-09-09] MEDS: traZODone HCL 100 MG TAB PO SCH (20:37)
[2024-09-09] MEDS: TAMSULOSIN 0.4 MG CAP.ER.24H PO SCH (20:37)
[2024-09-09] MEDS: ALPRAZolam 1 MG TAB PO SCH (20:37)
[2024-09-10 03:04] LABS: % Iron Saturation 49.36 (15.00-50.00)
[2024-09-10 10:28] LABS: HCT 27.6 % (39.6-50.0); HGB 8.9 g/dL (13.0-17.0); Immature Platelet Fraction 6.2 % (1.1-6.1); MCH 26.6 pg (27.0-32.0); MCHC 32.2 g/dL (32.0-37.0); MCV 82.6 FL (80.0-97.0); Mean Platelet Volume 10.4 FL (9.5-12.2); NRBC Per 100 WBC 0 X 10*3/uL (0.00-0.01); Platelet Count 64 X 10*3/uL (140-440); RBC 3.34 X 10*6/uL (4.40-5.60); RDW 13.2 % (11.5-14.5); WBC 2.51 X 10*3/uL (4.50-10.00)
--- NOTE | 2024-09-10 10:39 | CT ---
EXAMINATION TYPE: CT chest angio for PE DATE OF EXAM: 09/10/2024 COMPARISON: 09/08/2024 CLINICAL INDICATION: Male, 58 years old with history of elevated d.dimer; PHH, elevated d dimer best possible, SOB or PAIN TECHNIQUE: Ct angiogram of the chest performed with with IV Contrast, patient injected with 100 mL of Isovue 370 . MIP images are created and reviewed. CT DLP: 1113.[address] CTDI: mGy Automated exposure control for dose reduction was used. FINDINGS: LUNGS: The lungs are grossly clear, there is no concerning parenchymal mass or nodule identified. T here is no pleural effusion or pneumothorax seen. The tracheobronchial tree is patent. MEDIASTINUM: There is suboptimal enhancement of the pulmonary artery and its branches, but there is n o CT evidence for pulmonary embolism. There are no greater than 1 cm hilar or mediastinal lymph node s. No pericardial effusion is seen. OTHER: Status post lap band procedure.. IMPRESSION: Suboptimal enhancement of the pulmonary arterial circulation but no definite filling defect to sugges t pulmonary embolism. No acute cardiopulmonary disease. Follow-up recommendations for incidental pulmonary nodules are per [employer] or [employer]. [facility], , 09/10/2024 10:36 AM
[2024-09-10 10:42] LABS: ALT 11 U/L (10-49); AST 22 U/L (14-35); Albumin 3.3 g/dL (3.8-4.9); Alkaline Phosphatase 88 U/L (41-126); BUN/Creat Ratio 14.14 Ratio (12.00-20.00); Blood Urea Nitrogen 9.9 mg/dL (9.0-27.0); Carbon Dioxide 23.9 mmol/L (21.6-31.8); Chloride 104 mmol/L (96-109); Globulin 3.3 g/dL (1.6-3.3); Glucose 120 mg/dL (70-110); Potassium 3.7 mmol/L (3.5-5.5); Sodium 138 mmol/L (135-145); Total Bilirubin 0.2 mg/dL (0.3-1.2); Total Protein 6.6 g/dL (6.2-8.2)
--- NOTE | 2024-09-10 15:19 | P.PN ---
Subjective Progress Note Date: 09/10/24 Interval History: 58-year-old male patient with significant history of multiple myeloma who presented to hospital with a complaint of shortness of breath, cough, generalized weakness, poor p.o. intake. Shortness of complaint of dizziness. Upon admission CT chest abdomen pelvis showed hepatosplenomegaly. Multiple punctate nonobstructive renal stones bilaterally. CT brain without contrast was negative for acute process. D-dimer elevated at 6.04. CT chest limited study, negative for PE Echocardiogram showed ejection fraction 45 to 50%, mild pulmonary hypertension 09/10--- patient does complain of generalized weakness, and fatigue. Vitals are currently stable, patient remained afebrile. WBCs 2.5, hemoglobin 8.9, platelets 64. Echocardiogram showed EF 45 to 50% as above. Oncology following. Cardiology consulted, awaiting evaluation and recommendations. Ultrasound venous ordered to rule out DVT. Assessment and plan: Probable syncope: Generalized weakness: Dehydration: Dizziness: Multiple myeloma Elevated D-dimer: Pancytopenia: 58-year-old male patient with significant history of multiple myeloma who presented to hospital with a complaint of shortness of breath, cough, generalized weakness, poor p.o. intake. Shortness of complaint of dizziness. Upon admission CT chest abdomen pelvis showed hepatosplenomegaly. Multiple punctate nonobstructive renal stones bilaterally. CT brain without contrast was negative for acute process. D-dimer elevated at 6.04. CT chest limited study, negative for PE Echocardiogram showed ejection fraction 45 to 50%, mild pulmonary hypertension Continue IV fluids Monitor vitals Resume home meds Oncology consulted Cardiology consulted PT/OT consulted Ultrasound venous to rule out DVT. DVT prophylaxis: SCD Monitor vital signs and labs Labs and medication were reviewed. Continue same treatment. Further recommendations as per clinical course of the patient PHYSICAL EXAMINATION: GENERAL: The patient is A&O x3, NAD HEENT: EOMI, Sclerae anicteric, Moist Mucous membranes Neck: Supple, Non tender, No JVD PULMONARY: Equal breath souds B/L, No wheezing, No crackles. CARDIOVASCULAR: S1, S2 present. No murmurs, rubs, or gallops. ABDOMEN: Soft, nontender, nondistended, normoactive bowel sounds. No guarding or rebound tenderness. MUSCULOSKELETAL: No edema, No cyanosis. No clubbing. Normal ROM. Intact peripheral pulses. EXTREMITIES: No cyanosis, clubbing, or pedal edema. NEUROLOGICAL: CN 2-12 grossly intact. No FND Skin: No Rash REVIEW OF SYSTEMS: CONSTITUTIONAL: Complains of generalized weakness, fatigue, dizziness. CARDIOVASCULAR: No chest pain, palpitations or syncope. PULMONARY: No shortness of breath, no cough, sore throat. GASTROINTESTINAL: No nausea, vomiting, diarrhea, abdominal pain. : No Dysuria, urgency, frequency. Extremities: No edema. NEUROLOGICAL: No headaches, no weakness, or numbness Dictation was produced using [employer] dictation software. please excuse any grammatical, word or spelling errors. Objective - Vital Signs Vital signs: Vital Signs Temp 98.2 F 09/10/24 14:44 Pulse 96 09/10/24 14:44 Resp 17 09/10/24 14:44 BP 158/81 09/10/24 14:44 Pulse Ox 97 09/10/24 14:44 FiO2 Intake & Output 09/09/24 09/10/24 09/10/24 18:59 06:59 18:59 Intake Total 1040 236 Balance 1040 236 Weight 154.221 kg Intake: Oral 1040 236 Other: Voiding Method Toilet Toilet Toilet # Voids 2 3 # Bowel Movements 1 1 - Labs CBC & Chem 7: 09/10/24 06:38 09/10/24 06:38 Labs: Abnormal Lab Results - Last 24 Hours (Table) 09/09/24 09/09/24 09/10/24 Range/Units 11:38 11:38 06:38 WBC 2.51 L (4.50-10.00) X 10*3/uL RBC 3.34 L (4.40-5.60) X 10*6/uL Hgb 8.9 L (13.0-17.0) g/dL Hct 27.6 L (39.6-50.0) % MCH 26.6 L (27.0-32.0) pg Plt Count 64 L (140-440) X 10*3/uL Immature Plt Fraction 6.2 H (1.1-6.1) % Glucose (70-110) mg/dL Calcium (8.7-10.3) mg/dL Transferrin 168.0 L (204.0-354.0) mg/dL Ferritin 455.0 H (22.0-322.0) ng/mL Total Bilirubin (0.3-1.2) mg/dL Albumin (3.8-4.9) g/dL Albumin/Globulin Ratio (1.60-3.17) Ratio IgG 1921.0 H (700.0-1600.0) mg/dL IgM 35.4 L (40.0-280.0) mg/dL 09/10/24 Range/Units 06:38 WBC (4.50-10.00) X 10*3/uL RBC (4.40-5.60) X 10*6/uL Hgb (13.0-17.0) g/dL Hct (39.6-50.0) % MCH (27.0-32.0) pg Plt Count (140-440) X 10*3/uL Immature Plt Fraction (1.1-6.1) % Glucose 120 H (70-110) mg/dL Calcium 8.0 L (8.7-10.3) mg/dL Transferrin (204.0-354.0) mg/dL Ferritin (22.0-322.0) ng/mL Total Bilirubin 0.2 L (0.3-1.2) mg/dL Albumin 3.3 L (3.8-4.9) g/dL Albumin/Globulin Ratio 1.00 L (1.60-3.17) Ratio IgG (700.0-1600.0) mg/dL IgM (40.0-280.0) mg/dL
[2024-09-10] MEDS: ACETAMINOPHEN TAB 500 MG TAB PO PRN (15:42)
--- NOTE | 2024-09-10 16:08 | US ---
EXAMINATION TYPE: US venous doppler duplex LE BI DATE OF EXAM: 09/10/2024 3:53 PM COMPARISON: NONE CLINICAL INDICATION: Male, 58 years old with history of Edema; pain in both legs, 340lb patient, no h /o dvt TECHNIQUE: The lower extremity deep venous system is examined utilizing real time linear array sonog stephen with graded compression, color doppler sonography, and spectral doppler. SIDE PERFORMED: Bilateral FINDINGS: VESSELS IMAGED: Common Femoral Vein Deep Femoral Vein Greater Saphenous Vein * Femoral Vein Popliteal Vein Small Saphenous Vein * Proximal Calf Veins Right Leg: Negative for DVT, Color Doppler imaging shows patency of the vessels. Spectral waveforms are within normal limits. Left Leg: Negative for DVT, Color Doppler imaging shows patency of the vessels. Spectral waveforms a re within normal limits. IMPRESSION: No ultrasound evidence for deep venous thrombosis. [facility], Workstation: [facility], 09/10/2024 4:06 PM
[2024-09-10] MEDS: carvediloL 3.125 MG TAB PO SCH (20:54)
[2024-09-10] MEDS: LOSARTAN 25 MG TAB PO SCH (20:55)
[2024-09-10] MEDS: SPIRONOLACTONE 25 MG TAB PO SCH (20:55)
[2024-09-10] MEDS: ATORVASTATIN 20 MG TAB PO SCH (20:55)
[2024-09-10] MEDS: TORSEMIDE 20 MG TAB PO SCH (21:04)
--- NOTE | 2024-09-11 08:39 | P.PN ---
Subjective Progress Note Date: 09/10/24 SUBJECTIVE: September 10, 2024, patient reports feeling symptomatically a bit better today. His echocardiogram showed mild cardiomyopathy with a EF of 45% with no significant valvular abnormality, no significant regional wall motion abnormality. PHYSICAL EXAMINATION Morbidly obese Neck: Brisk carotid upstroke, no jugular venous distention. Lungs: Clear to auscultation. Heart: Regular rate and rhythm, S1-S2, no S3, no murmur or rub. Abdomen: Soft nontender, bowel sounds present, Extremities: No edema, Neuro: Alert, oriented, no focal neurological deficits. Detailed neuro exam was not performed. ASSESSMENT Generalized weakness, exertional fatigue, tiredness not feeling well, Unclear etiology, multifactorial due to below HFmrEF, Anemia, hypokalemia, History of multiple myeloma, pleated chemotherapy with Revlimid and Velcade Pain medication use Morbid obesity Suspect obstructive sleep apnea PLAN Recommend outpatient ischemic evaluation with a Lexiscan nuclear stress test For cardiomyopathy start Coreg 3.125 mg twice daily, losartan 25 g daily, Aldactone 25 mg daily, torsemide 10 mg daily. Continue amlodipine for elevated blood pressure Lipitor 20 mg Will not add aspirin due to anemia., Thrombocytopenia and history of multiple myeloma. Will not add Jardiance because of poor personal hygiene and increased risk of UTI Monitor renal function and potassium lab. Bhanu Daugherty MD, FACC, RPVI Thank you for allowing [facility] to participate in this patient's care. Please contact us in case of any followup questions. Objective - Vital Signs Vital signs: Vital Signs Temp 99 F 09/11/24 07:05 Pulse 89 09/11/24 07:05 Resp 18 09/11/24 07:05 BP 161/79 09/11/24 07:05 Pulse Ox 97 09/11/24 07:05 FiO2 Intake & Output 09/10/24 09/11/24 09/11/24 18:59 06:59 18:59 Intake Total 796 560 Balance 796 560 Intake: Oral 796 560 Other: Voiding Method Toilet Toilet # Voids 3 # Bowel Movements 1 1 - Labs CBC & Chem 7: 09/10/24 06:38 09/10/24 06:38 Labs: Abnormal Lab Results - Last 24 Hours (Table) 09/10/24 09/10/24 Range/Units 06:38 06:38 WBC 2.51 L (4.50-10.00) X 10*3/uL RBC 3.34 L (4.40-5.60) X 10*6/uL Hgb 8.9 L (13.0-17.0) g/dL Hct 27.6 L (39.6-50.0) % MCH 26.6 L (27.0-32.0) pg Plt Count 64 L (140-440) X 10*3/uL Immature Plt Fraction 6.2 H (1.1-6.1) % Glucose 120 H (70-110) mg/dL Calcium 8.0 L (8.7-10.3) mg/dL Total Bilirubin 0.2 L (0.3-1.2) mg/dL Albumin 3.3 L (3.8-4.9) g/dL Albumin/Globulin Ratio 1.00 L (1.60-3.17) Ratio
[2024-09-11] MEDS: amLODIPine 5 MG TAB PO SCH (09:32)
--- NOTE | 2024-09-11 12:49 | P.PN ---
Subjective Interval History: 58-year-old male patient with significant history of multiple myeloma who presented to hospital with a complaint of shortness of breath, cough, generalized weakness, poor p.o. intake. Shortness of complaint of dizziness. Upon admission CT chest abdomen pelvis showed hepatosplenomegaly. Multiple punctate nonobstructive renal stones bilaterally. CT brain without contrast was negative for acute process. D-dimer elevated at 6.04. CT chest limited study, negative for PE Echocardiogram showed ejection fraction 45 to 50%, mild pulmonary hypertension 09/10--- patient does complain of generalized weakness, and fatigue. Vitals are currently stable, patient remained afebrile. WBCs 2.5, hemoglobin 8.9, platelets 64. Echocardiogram showed EF 45 to 50% as above. Oncology following. Cardiology consulted, awaiting evaluation and recommendations. Ultrasound venous ordered to rule out DVT. 09/11/24 Patient was seen and examined today. Patient continues complain of shortness of breath. IV fluid discontinued yesterday, currently patient on diuresis with Aldactone and torsemide per cardiology, also started on Coreg and losartan. Per cardiology avoid taking aspirin due to anemia, cardiology recommended outpatient stress test. Ultrasound venous negative for DVT. Patient remained afebrile, heart rate 89, respiratory rate 18, blood pressure 161/79, saturating 97% on room air. WBCs 2.5, hemoglobin 8.9, platelets 64, BMP unremarkable yesterday. No labs today. Assessment and plan: Acute systolic CHF: Cardiomyopathy with EF 45% Probable syncope: Generalized weakness: Dehydration: Dizziness: Multiple myeloma Elevated D-dimer: Pancytopenia: 58-year-old male patient with significant history of multiple myeloma who presented to hospital with a complaint of shortness of breath, cough, gen eralized weakness, poor p.o. intake. Shortness of complaint of dizziness. Upon admission CT chest abdomen pelvis showed hepatosplenomegaly. Multiple punctate nonobstructive renal stones bilaterally. CT brain without contrast was negative for acute process. D-dimer elevated at 6.04. CT chest limited study, negative for PE Echocardiogram showed ejection fraction 45 to 50%, mild pulmonary hypertension Initially received IV fluids, currently on torsemide. Monitor vitals Resume home meds Oncology consulted Cardiology consulted--- started Coreg, losartan, Aldactone, torsemide, Norvasc, recommended outpatient nuclear stress test. Monitor daily weight and I&O's, cardiac diet. PT/OT consulted Ultrasound venous negative for DVT. DVT prophylaxis: SCD Monitor vital signs and labs Labs and medication were reviewed. Continue same treatment. Further recommendations as per clinical course of the patient PHYSICAL EXAMINATION: GENERAL: The patient is A&O x3, NAD HEENT: EOMI, Sclerae anicteric, Moist Mucous membranes Neck: Supple, Non tender, No JVD PULMONARY: Decreased breath souds B/L, No wheezing, No crackles. CARDIOVASCULAR: S1, S2 present. No murmurs, rubs, or gallops. ABDOMEN: Soft, nontender, nondistended, normoactive bowel sounds. No guarding or rebound tenderness. MUSCULOSKELETAL: No edema, No cyanosis. No clubbing. Normal ROM. Intact peripheral pulses. EXTREMITIES: No cyanosis, clubbing, or pedal edema. NEUROLOGICAL: CN 2-12 grossly intact. No FND Skin: No Rash REVIEW OF SYSTEMS: CONSTITUTIONAL: Complains of generalized weakness, fatigue, dizziness. CARDIOVASCULAR: No chest pain, palpitations or syncope. PULMONARY: Complains of shortness of breath. GASTROINTESTINAL: No nausea, vomiting, diarrhea, abdominal pain. : No Dysuria, urgency, frequency. Extremities: No edema. NEUROLOGICAL: No headaches, no weakness, or numbness Dictation was produced using [employer] dictation software. please excuse any grammatical, word or spelling errors. Objective - Vital Signs Vital signs: Vital Signs Temp 99 F 09/11/24 07:05 Pulse 89 09/11/24 07:05 Resp 18 09/11/24 08:00 BP 161/79 09/11/24 07:05 Pulse Ox 97 09/11/24 07:05 FiO2 Intake & Output 09/10/24 09/11/24 09/11/24 18:59 06:59 18:59 Intake Total 796 560 222 Balance 796 560 222 Intake: Oral 796 560 222 Other: Voiding Method Toilet Toilet Toilet # Voids 3 # Bowel Movements 1 1 - Labs CBC & Chem 7: 09/10/24 06:38 09/10/24 06:38
[2024-09-11 14:20] LABS: Basophils % (A) 1 %; Eosinophils # (A) 0.2 k/uL (0-0.7); Eosinophils % (A) 3 %; HCT 30.9 % (39.0-53.0); HGB 10.1 gm/dL (13.0-17.5); Lymphocytes # (A) 3.3 k/uL (1.0-4.8); Lymphocytes % (A) 59 %; MCH 27.4 pg (25.0-35.0); MCHC 32.8 g/dL (31.0-37.0); MCV 83.7 fL (80.0-100.0); Monocytes # (A) 0.3 k/uL (0-1.0); Monocytes % (A) 4 %; Neutrophils # (A) 1.5 k/uL (1.3-7.7); Neutrophils % (A) 26 %; Poikilocytosis Slight; RBC 3.69 m/uL (4.30-5.90); WBC 5.6 k/uL (3.8-10.6)
[2024-09-11 15:10] LABS: Eosinophils # (M) 0.06 k/uL (0-0.7); Lymphocytes # (M) 3.36 k/uL (1.0-4.8); Neutrophils # (M) 1.68 k/uL (1.3-7.7); Neutrophils % (M) 30 %; Nucleated Red Blood Cells 0 /100 WBC (0-0); Total Cells Counted 100
[2024-09-11 15:11] LABS: Platelet Count 79 k/uL (150-450)
[2024-09-11 15:23] LABS: ALT 18 U/L (4-49); AST 30 U/L (17-59); African American GFR (CKD) >90 (>60 ml/min/1.73 sqM); Albumin 3.9 g/dL (3.5-5.0); Alkaline Phosphatase 106 U/L (38-126); Anion Gap 6 mmol/L; Blood Urea Nitrogen 10 mg/dL (9-20); Calcium 7.9 mg/dL (8.4-10.2); Carbon Dioxide 29 mmol/L (22-30); Chloride 100 mmol/L (98-107); Globulin 3.8 g/dL; Glucose 169 mg/dL (74-99); Non-African American GFR(CKD) >90 (>60 ml/min/1.73 sqM); Potassium 3.7 mmol/L (3.5-5.1); Sodium 135 mmol/L (137-145); Total Bilirubin 0.4 mg/dL (0.2-1.3); Total Protein 7.7 g/dL (6.3-8.2)
[2024-09-11] MEDS: ALPRAZolam 0.5 MG TAB PO STA (17:27)
[2024-09-11] MEDS: TRIAMCINOLONE 0.1% CREAM 80 GM TUBE TOPICAL SCH (20:37)
[2024-09-11] MEDS: hydrOXYzine HCL 25 MG TAB PO PRN (21:26)
[2024-09-11 22:31] LABS: Chol/HDL Ratio 5.77 Ratio; LDL Cholesterol,Calculated 56.1 mg/dL (0.0-131.0)
--- NOTE | 2024-09-12 08:39 | P.DS ---
Providers Date of admission: 09/08/24 20:00 Attending physician: Perez Pennington Consults: 09/08/24 19:59 Consult Physician Routine Consulting Provider: Yifan Méndez Consult Reason/Comments: known Do you want consulting provider notified?: Yes Consult Physician Routine Consulting Provider: Gunner Hernandez Consult Reason/Comments: tachy,syncope Do you want consulting provider notified?: Yes Primary care physician: Perez Pennington - Discharge Diagnosis(es) (1) Tachycardia Current Visit: Yes Status: Acute (2) Multiple myeloma Current Visit: No Status: Chronic Priority: High (3) Fall Current Visit: Yes Status: Acute (4) Syncope Current Visit: Yes Status: Acute Hospital Course: This is a 58-year-old male who presented to the emergency department with complaints of shortness of breath, cough, generalized weakness and dizziness. Imaging workup was negative. Echo showed ejection fraction of 45 to 50% with mild pulmonary hypertension. Patient seen and evaluated by cardiology who has started patient on Aldactone, torsemide, Coreg and losartan. Patient seen this morning lying in bed resting comfortably. Will discharge today if patient is cleared by cardiology. Patient seen and evaluated by nurse practitioner, physician in agreement with plan. Patient Condition at Discharge: Fair Plan - Discharge Summary New Discharge Prescriptions: New Spironolactone [Aldactone] 25 mg PO DAILY #30 tab carvediloL [Coreg] 3.125 mg PO BID-W/MEALS #60 tab Atorvastatin [Lipitor] 20 mg PO DAILY #30 tab amLODIPine [Norvasc] 5 mg PO DAILY #30 tab Losartan [Cozaar] 25 mg PO DAILY #30 tab Torsemide [Demadex] 10 mg PO DAILY #30 tab Continue PARoxetine HCL [Paxil] 40 mg PO DAILY HYDROcodone/APAP 10-325MG [[place] 10-325] 1 tab PO QID Omeprazole 40 mg PO AC-BRKFST traZODone HCL [Desyrel] 100 mg PO HS ALPRAZolam [Xanax] 1 mg PO HS Tamsulosin [Flomax] 0.4 mg PO HS Ibuprofen [Motrin] 800 mg PO TID Discontinued amLODIPine [Norvasc] 10 mg PO DAILY Azithromycin [Zithromax Z Pack] See Taper PO DIRECTED Discharge Medication List PARoxetine HCL [Paxil] 40 mg PO DAILY 04/29/14 [History] HYDROcodone/APAP 10-325MG [[place] 10-325] 1 tab PO QID 08/24/16 [History] Omeprazole 40 mg PO AC-BRKFST 02/04/21 [History] ALPRAZolam [Xanax] 1 mg PO HS 08/15/24 [History] Ibuprofen [Motrin] 800 mg PO TID 08/15/24 [History] Tamsulosin [Flomax] 0.4 mg PO HS 08/15/24 [History] traZODone HCL [Desyrel] 100 mg PO HS 08/15/24 [History] Atorvastatin [Lipitor] 20 mg PO DAILY #30 tab 09/12/24 [Rx] Losartan [Cozaar] 25 mg PO DAILY #30 tab 09/12/24 [Rx] Spironolactone [Aldactone] 25 mg PO DAILY #30 tab 09/12/24 [Rx] Torsemide [Demadex] 10 mg PO DAILY #30 tab 09/12/24 [Rx] amLODIPine [Norvasc] 5 mg PO DAILY #30 tab 09/12/24 [Rx] carvediloL [Coreg] 3.125 mg PO BID-W/MEALS #60 tab 09/12/24 [Rx] Follow up Appointment(s)/Referral(s): Perez Pennington MD [Primary Care Provider] - 1 Week Discharge/Stand Alone Forms: Who Do I Call?, Assisted Living Facilities, Community Resources, Help In The Home, Outpatient Counseling, Personal Book Packer Discharge Disposition: HOME SELF-CARE
[2024-09-12 08:49] LABS: Basophils % (A) 0 %; Eosinophils # (A) 0.1 k/uL (0-0.7); Eosinophils % (A) 2 %; HCT 30.1 % (39.0-53.0); HGB 10.2 gm/dL (13.0-17.5); Lymphocytes % (A) 57 %; MCH 28.1 pg (25.0-35.0); MCHC 33.8 g/dL (31.0-37.0); Mean Platelet Volume 9.5; Monocytes # (A) 0.3 k/uL (0-1.0); Monocytes % (A) 5 %; Neutrophils # (A) 1.6 k/uL (1.3-7.7); Neutrophils % (A) 31 %; RBC 3.63 m/uL (4.30-5.90); RDW 13.9 % (11.5-15.5); WBC 5.2 k/uL (3.8-10.6)
[2024-09-12 08:51] LABS: Platelet Count 73 k/uL (150-450)
[2024-09-12 09:02] LABS: African American GFR (CKD) >90 (>60 ml/min/1.73 sqM); Anion Gap 8 mmol/L; Blood Urea Nitrogen 16 mg/dL (9-20); Calcium 7.9 mg/dL (8.4-10.2); Carbon Dioxide 27 mmol/L (22-30); Chloride 102 mmol/L (98-107); Glucose 146 mg/dL (74-99); Magnesium 1.4 mg/dL (1.6-2.3); Non-African American GFR(CKD) >90 (>60 ml/min/1.73 sqM); Sodium 137 mmol/L (137-145)
[2024-09-12] MEDS: carvediloL 6.25 MG TAB PO SCH (09:38)
[2024-09-12] MEDS ORDERED: Magnesium Replacement Protocol 1 EACH MISC MISCELLANE PRN (11:16)
--- NOTE | 2024-09-12 11:17 | P.PN ---
Subjective Progress Note Date: 09/12/24 SUBJECTIVE: September 10, 2024, patient reports feeling symptomatically a bit better today. His echocardiogram showed mild cardiomyopathy with a EF of 45% with no significant valvular abnormality, no significant regional wall motion abnormality. 09/12/2024 Patient states he just woke up so is not sure how he is feeling yet. He states yesterday he had some shortness of breath getting to his wheelchair to the bathroom which is not normal for him. He has no lower extremity edema. He denies orthopnea. No chest pain. Blood pressure 126/79, heart rate 97, pulse ox 99% on room air. Repeat blood work reveals WBC 5.2, hemoglobin 10.2, platelet count 73. Electrolytes and renal function are normal. Magnesium 1.4. PHYSICAL EXAMINATION Morbidly obese Neck: Brisk carotid upstroke, no jugular venous distention. Lungs: Clear to auscultation. Heart: Regular rate and rhythm, S1-S2, no S3, no murmur or rub. Abdomen: Soft nontender, bowel sounds present, Extremities: No edema, Neuro: Alert, oriented, no focal neurological deficits. Detailed neuro exam was not performed. ASSESSMENT Generalized weakness, exertional fatigue, tiredness not feeling well, Unclear etiology, multifactorial due to below HFmrEF, Anemia, hypokalemia, History of multiple myeloma, pleated chemotherapy with Revlimid and Velcade Pain medication use Morbid obesity Suspect obstructive sleep apnea PLAN Recommend outpatient ischemic evaluation with a Lexiscan nuclear stress test For cardiomyopathy start Coreg 3.125 mg twice daily, losartan 25 g daily, Aldactone 25 mg daily, torsemide 10 mg daily. Continue amlodipine for elevated blood pressure Lipitor 20 mg Will not add aspirin due to anemia., Thrombocytopenia and history of multiple myeloma. Will not add Jardiance because of poor personal hygiene and increased risk of UTI Continue patient on the following medications: Amlodipine 5 mg daily, atorvastatin 20 mg daily, Coreg 6.25 mg twice daily, losartan 25 mg daily, Aldactone 25 mg daily, Demadex 10 mg oral daily Replace magnesium 2 g IV piggyback prior to discharge Patient is cleared from cardiology for discharge. Nurse practitioner note has been reviewed, I agree with documented findings and plan of care. Patient was seen and examined. Objective - Vital Signs Vital signs: Vital Signs Temp 98.5 F 09/12/24 07:05 Pulse 97 09/12/24 07:05 Resp 18 09/12/24 07:05 BP 126/79 09/12/24 07:05 Pulse Ox 99 09/12/24 07:05 FiO2 Intake & Output 09/11/24 09/12/24 09/12/24 18:59 06:59 18:59 Intake Total 1478 480 Balance 1478 480 Intake: Oral 1478 480 Other: Voiding Method Toilet Toilet # Voids 5 2 # Bowel Movements 1 - Labs CBC & Chem 7: 09/12/24 08:35 09/12/24 08:35 Labs: Abnormal Lab Results - Last 24 Hours (Table) 09/11/24 09/11/24 Range/Units 14:06 14:06 RBC 3.69 L (4.30-5.90) m/uL Hgb 10.1 L (13.0-17.5) gm/dL Hct 30.9 L (39.0-53.0) % Plt Count 79 L (150-450) k/uL Sodium 135 L (137-145) mmol/L Glucose 169 H (74-99) mg/dL Calcium 7.9 L (8.4-10.2) mg/dL Triglycerides 261.00 H (0.00-149.00) mg/dL VLDL Cholesterol, Calc 52.20 H (5.00-40.00) mg/dL HDL Cholesterol 22.70 L (40.00-60.00) mg/dL
[2024-09-12] MEDS: MAGNESIUM SULFATE-D5W PMX 1 GM in DEXTROSE/WATER 1 100ML.BAG IVPB SCH (12:07)
[2024-09-12 12:53] LABS: Free Kappa Lt Chain Qnt, Serum 8.14 mg/dL (0.33-1.94); Free Lambda Lt Chain Qnt, Seru 5.65 mg/dL (0.57-2.63)
[2024-09-13 07:54] VITALS: BP 144/80; PULSE 88; RESP 18; TEMP 98.5
[2024-09-13 08:35] LABS: Methylmalonic Acid 0.58 umol/L (<0.40)
[2024-09-13] MEDS: CYANOCOBALAMIN 1,000 MCG/ML 1 ML VIAL IM ONE (13:13)
[2024-09-16 12:01] LABS: Albumin 2.83 g/dL (3.80-4.90); Gamma Globulin 2.18 g/dL (0.70-1.50)
== END 2024-09-13 14:07 ==
LOC: EC 15:57 → 6NMEDSUR 20:00
PROVIDERS: ADMIT Family Medicine; ATTEND Family Medicine
DX: R00.0 Tachycardia, unspecified (principal); R53.1 Weakness; R55 Syncope and collapse; I11.0 Hypertensive heart disease with heart failure; I50.21 Acute systolic (congestive) heart failure; D64.9 Anemia, unspecified; E87.6 Hypokalemia; E86.0 Dehydration; D61.818 Other pancytopenia; R79.1 Abnormal coagulation profile; R62.7 Adult failure to thrive; E66.01 Morbid (severe) obesity due to excess calories; D69.6 Thrombocytopenia, unspecified; I42.9 Cardiomyopathy, unspecified; N20.0 Calculus of kidney; R16.2 Hepatomegaly with splenomegaly, not elsewhere classified; G89.29 Other chronic pain; I49.3 Ventricular premature depolarization; F32.A Depression, unspecified; E78.5 Hyperlipidemia, unspecified; I25.2 Old myocardial infarction; I27.20 Pulmonary hypertension, unspecified; M10.9 Gout, unspecified; E11.9 Type 2 diabetes mellitus without complications; Z92.21 Personal history of antineoplastic chemotherapy; Z79.891 Long term (current) use of opiate analgesic; Z79.899 Other long term (current) drug therapy; Z88.5 Allergy status to narcotic agent; Z87.891 Personal history of nicotine dependence; Z98.84 Bariatric surgery status; Z85.79 Personal history of other malignant neoplasms of lymphoid, hematopoietic and related tissues
CPT/HCPCS: 96361 ×3; 96372; 96365; 96366; 99285; 36415; 93005; 93306; 97162; 97166; 83921; 85379; 82747; 80061; 80053 ×4; 80048; 82607; 82728; 83540; 83550; 83735 ×3; 84100; 84443; 84484 ×2; 85025 ×4; 85027; 85610; 85730; 81001; 82784 ×3; 84165; 86334; 83883; 87636; 71046; 93970; 70450; 71260; 71275; 74177; G0378 ×6; J3420; Q9957; J3475; Q9967 ×2

== ENCOUNTER 2025-01-19 01:37 | Emergency (ER) | payer MEDICARE ==
[2025-01-19 01:48] VITALS: RESP 18; TEMP 98
[2025-01-19] MEDS: KETOROLAC 15 MG/ML 1 ML VIAL IVP STA (03:06)
[2025-01-19 03:40] LABS: Basophils % (A) 0 %; Eosinophils # (A) 0.2 k/uL (0-0.7); Eosinophils % (A) 3 %; HGB 10.5 gm/dL (13.0-17.5); Hypochromasia Slight; Lymphocytes # (A) 1.8 k/uL (1.0-4.8); Lymphocytes % (A) 27 %; MCH 26.4 pg (25.0-35.0); MCHC 32.8 g/dL (31.0-37.0); MCV 80.4 fL (80.0-100.0); Mean Platelet Volume 7.4; Monocytes # (A) 0.3 k/uL (0-1.0); Monocytes % (A) 4 %; Neutrophils # (A) 4.3 k/uL (1.3-7.7); Neutrophils % (A) 63 %; Platelet Count 117 k/uL (150-450); Poikilocytosis Slight; RBC 3.98 m/uL (4.30-5.90); RDW 15.1 % (11.5-15.5); WBC 6.8 k/uL (3.8-10.6)
--- NOTE | 2025-01-19 03:55 | ED ---
Recheck HPI <Jt Jensen - Last Filed: 01/19/25 05:30> - General Source: patient Mode of arrival: wheelchair Limitations: no limitations <Benjamín Villasenor - Last Filed: 01/23/25 19:12> - General Chief Complaint: Recheck/Abnormal Lab/Rx Stated Complaint: abn labs Time Seen by Provider: 01/19/25 02:26 - History of Present Illness Initial Comments: 59-year-old male with history of multiple myeloma, diabetes, hypertension presenting with chief complaint of left-sided neck tenderness and swelling. Jon jernigan states he noticed this about 5 days ago, however tonight he took his pain medication at home and the pain persisted causing him to come into the ER. He is having some pain with swallowing. No difficulty breathing or swallowing. No known fevers. He admits to chills. No cough or congestion. No chest pain, abdominal pain, nausea, vomiting. (Benjamín Villasenor) - Related Data Home Medications Medication Instructions Recorded Confirmed PARoxetine HCL [Paxil] 40 mg PO DAILY 04/29/14 09/08/24 HYDROcodone/APAP 10-325MG [[place] 1 tab PO QID 08/24/16 09/08/24 10-325] Omeprazole 40 mg PO AC-BRKFST 02/04/21 09/08/24 ALPRAZolam [Xanax] 1 mg PO HS 08/15/24 09/08/24 Ibuprofen [Motrin] 800 mg PO TID 08/15/24 09/08/24 Tamsulosin [Flomax] 0.4 mg PO HS 08/15/24 09/08/24 traZODone HCL [Desyrel] 100 mg PO HS 08/15/24 09/08/24 Previous Rx's Medication Instructions Recorded Atorvastatin [Lipitor] 20 mg PO DAILY #30 tab 09/12/24 Losartan [Cozaar] 25 mg PO DAILY #30 tab 09/12/24 Spironolactone [Aldactone] 25 mg PO DAILY #30 tab 09/12/24 Torsemide [Demadex] 10 mg PO DAILY #30 tab 09/12/24 amLODIPine [Norvasc] 5 mg PO DAILY #30 tab 09/12/24 carvediloL [Coreg] 3.125 mg PO BID-W/MEALS #60 tab 09/12/24 Amoxic-Pot Clav 875-125Mg 1 tab PO Q12HR 1 Days #14 tab 01/19/25 [Augmentin 875-125] Allergies Allergy/AdvReac Type Severity Reaction Status Date / Time lisinopril Allergy Rash/Hives Verified 01/19/25 01:48 hydromorphone HCl AdvReac Hallucinati Verified 01/19/25 01:48 [From Dilaudid] ons meperidine HCl [From Demerol] AdvReac Hallucinati Verified 01/19/25 01:48 ons Review of Systems ROS Other: All systems not noted in ROS Statement are negative. <Jt Jensen - Last Filed: 01/19/25 05:30> ROS Other: All systems not noted in ROS Statement are negative. <Benjamín Villasenor - Last Filed: 01/23/25 19:12> ROS Statement: Those systems with pertinent positive or pertinent negative responses have been documented in the HPI. Past Medical History Past Medical History: Cancer, Diabetes Mellitus, Hypertension, Myocardial Infarction ([place]) Additional Past Medical History / Comment(s): gout, chronic back/hip pain, multiple myeloma Last Myocardial Infarction Date:: 02/04/21 History of Any Multi-Drug Resistant Organisms: None Reported Past Surgical History: Orthopedic Surgery Additional Past Surgical History / Comment(s): thymus gland removal, HIP SURGERY., lap band by boutt Past Anesthesia/Blood Transfusion Reactions: No Reported Reaction Past Psychological History: Depression Smoking Status: Former smoker Past Alcohol Use History: None Reported Past Drug Use History: None Reported <Benjamín Villasenor - Last Filed: 01/23/25 19:12> General Exam Limitations: no limitations General appearance: alert, in no apparent distress Head exam: Present: atraumatic, normocephalic, normal inspection Eye exam: Present: normal appearance, EOMI ENT exam: Present: normal oropharynx, mucous membranes moist Neck exam: Present: normal inspection, tenderness. Absent: meningismus Respiratory exam: Present: normal lung sounds bilaterally. Absent: respiratory distress, wheezes, rales, rhonchi, stridor Cardiovascular Exam: Present: regular rate, normal rhythm, normal heart sounds. Absent: systolic murmur, diastolic murmur, rubs, gallop, clicks Neurological exam: Present: alert, oriented X3 Psychiatric exam: Present: normal affect, normal mood Skin exam: Present: warm, dry, normal color <Benjamín Villasenor - Last Filed: 01/23/25 19:12> Course Vital Signs 01/19/25 01/19/25 01:39 06:20 Temperature 98 F Pulse Rate 77 67 Respiratory 18 18 Rate Blood Pressure 180/85 153/90 O2 Sat by Pulse 97 98 Oximetry Medical Decision Making - Lab Data Result diagrams: 01/19/25 03:06 01/19/25 03:06 - EKG Data -: EKG Interpreted by Me EKG shows normal: sinus rhythm, axis (Normal), intervals (QRS duration 114 ms, borderline, this is consistent with intraventricular conduction delay.), ST-T waves (Normal) Rate: normal (Rate 69 bpm) <Jt Jensen - Last Filed: 01/19/25 05:30> - Lab Data Result diagrams: 01/19/25 03:06 01/19/25 03:06 <Benjamín Villasenor - Last Filed: 01/23/25 19:12> - Medical Decision Making Was pt. sent in by a medical professional or institution (, PA, FILM REPLACEMENT ORDERER, urgent care, hospital, or senior care...) When possible be specific @ -No Did you speak to anyone other than the patient for history (EMS, parent, family, police, friend...)? What history was obtained from this source @ -No Did you review nursing and triage notes (agree or disagree)? Why? @ -I reviewed and agree with nursing and triage notes Were old charts reviewed (outside hosp., previous admission, EMS record, old EKG, old radiological studies, urgent care reports/EKG's, senior care records)? Report findings @ -No old charts were reviewed Differential Diagnosis (chest pain, altered mental status, abdominal pain women, abdominal pain men, vaginal bleeding, weakness, fever, dyspnea, syncope, headache, dizziness, GI bleed, back pain, seizure, CVA, palpatations, mental health, musculoskeletal)? @ -Differential includes infectious process, inflammatory process, malignancy, not an all-inclusive list EKG interpreted by me (3pts min.). @ -As above X-rays interpreted by me (1pt min.). @ -None done CT interpreted by me (1pt min.). @ -None done U/S interpreted by me (1pt. min.). @ -None done What testing was considered but not performed or refused? (CT, X-rays, U/S, labs)? Why? @ -None What meds were considered but not given or refused? Why? @ -None Did you discuss the management of the patient with other professionals (professionals i.e. Dr., PA, FILM REPLACEMENT ORDERER, lab, RT, psych nurse, social service worker, melting operator, teacher, licensed mortgage loan officer, bottle caser)? Give summary @ -No Was smoking cessation discussed for >3mins.? @ -No Was critical care preformed (if so, how long)? @ -No Were there social determinants of health that impacted care today? How? (Homelessness, low income, unemployed, alcoholism, drug addiction, transportation, low edu. Level, literacy, decrease access to med. care, nursing home, rehab)? @ -No Was there de-escalation of care discussed even if they declined (Discuss DNR or withdrawal of care, Hospice)? DNR status @ -No What co-morbidities impacted this encounter? (DM, HTN, Smoking, COPD, CAD, Cancer, CVA, ARF, Chemo, Hep., AIDS, mental health diagnosis, sleep apnea, morbid obesity)? @ -None Was patient admitted / discharged? Hospital course, mention meds given and route, prescriptions, significant lab abnormalities, going to OR and other pertinent info. @ -59-year-old male presenting with chief complaint of pain and swelling to the left side of the jaw and neck. History and physical examination are conducted. Patient is having no stridor or tripoding muffled voice or drooling. Labs and imaging ordered. Studies are pending. Patient is signed out to my attending Dr. Jensen Undiagnosed new problem with uncertain prognosis? @ -No Drug Therapy requiring intensive monitoring for toxicity (Heparin, Nitro, Insuli n, Cardizem)? @ -No Were any procedures done? @ -No Diagnosis/symptom? @ -Default Acute, or Chronic, or Acute on Chronic? @ -Default Uncomplicated (without systemic symptoms) or Complicated (systemic symptoms)? @ -Default Side effects of treatment? @ -No Exacerbation, Progression, or Severe Exacerbation? @ -No Poses a threat to life or bodily function? How? (Chest pain, [place], [place], pneumonia, PE, COPD, DKA, ARF, appy, cholecystitis, CVA, Diverticulitis, Homicidal, Suicidal, threat to staff... and all critical care pts) @ -No (HamiltonRedthomas) - Lab Data Lab Results 01/19/25 01/19/25 01/19/25 Range/Units 03:06 03:06 03:06 WBC 6.8 (3.8-10.6) k/uL RBC 3.98 L (4.30-5.90) m/uL Hgb 10.5 L (13.0-17.5) gm/dL Hct 32.0 L (39.0-53.0) % MCV 80.4 (80.0-100.0) fL MCH 26.4 (25.0-35.0) pg MCHC 32.8 (31.0-37.0) g/dL RDW 15.1 (11.5-15.5) % Plt Count 117 L (150-450) k/uL MPV 7.4 Neutrophils % 63 % Lymphocytes % 27 % Monocytes % 4 % Eosinophils % 3 % Basophils % 0 % Neutrophils # 4.3 (1.3-7.7) k/uL Lymphocytes # 1.8 (1.0-4.8) k/uL Monocytes # 0.3 (0-1.0) k/uL Eosinophils # 0.2 (0-0.7) k/uL Basophils # 0.0 (0-0.2) k/uL Hypochromasia Slight Poikilocytosis Slight Sodium 137 (137-145) mmol/L Potassium 4.3 (3.5-5.1) mmol/L Chloride 105 (98-107) mmol/L Carbon Dioxide 22 (22-30) mmol/L Anion Gap 10 mmol/L BUN 13 (9-20) mg/dL Creatinine 0.97 (0.66-1.25) mg/dL Est GFR (CKD-EPI)AfAm >90 (>60 ml/min/1.73 sqM) Est GFR (CKD-EPI)NonAf 85 (>60 ml/min/1.73 sqM) Glucose 129 H (74-99) mg/dL Plasma Lactic Acid Heladio 0.8 (0.7-2.0) mmol/L Calcium 8.7 (8.4-10.2) mg/dL Total Bilirubin 0.4 (0.2-1.3) mg/dL AST 23 (17-59) U/L ALT 18 (4-49) U/L Alkaline Phosphatase 88 (38-126) U/L Total Protein 6.5 (6.3-8.2) g/dL Albumin 3.7 (3.5-5.0) g/dL Disposition Is patient prescribed a controlled substance at d/c from ED?: No <Jt Jensen - Last Filed: 01/19/25 05:30> <Benjamín Villasenor - Last Filed: 01/23/25 19:12> Clinical Impression: Dental infection Disposition: HOME SELF-CARE Condition: Good Instructions (If sedation given, give patient instructions): Dental Abscess (ED) Prescriptions: Amoxic-Pot Clav 875-125Mg [Augmentin 875-125] 1 tab PO Q12HR 1 Days #14 tab Referrals: Perez Pennington MD [Primary Care Provider] - 1-2 days Yifan Méndez [STAFF PHYSICIAN] - 1-2 days
[2025-01-19 03:56] LABS: ALT 18 U/L (4-49); AST 23 U/L (17-59); African American GFR (CKD) >90 (>60 ml/min/1.73 sqM); Albumin 3.7 g/dL (3.5-5.0); Alkaline Phosphatase 88 U/L (38-126); Anion Gap 10 mmol/L; Blood Urea Nitrogen 13 mg/dL (9-20); Calcium 8.7 mg/dL (8.4-10.2); Carbon Dioxide 22 mmol/L (22-30); Chloride 105 mmol/L (98-107); Glucose 129 mg/dL (74-99); Non-African American GFR(CKD) 85 (>60 ml/min/1.73 sqM); Potassium 4.3 mmol/L (3.5-5.1); Sodium 137 mmol/L (137-145); Total Bilirubin 0.4 mg/dL (0.2-1.3); Total Protein 6.5 g/dL (6.3-8.2)
--- NOTE | 2025-01-19 04:58 | CT ---
EXAM: CT Neck With Intravenous Contrast CLINICAL HISTORY: ITS.REASON CT Reason: L sided tenderness/swelling TECHNIQUE: Axial computed tomography images of the neck with intravenous contrast. CTDI is 21 mGy and DLP is 719.1 mGy-cm. This CT exam was performed using one or more of the following dose reduction techniques: automated exposure control, adjustment of the mA and/or kV according to patient size, and/or use of iterative reconstruction technique. COMPARISON: No relevant prior studies available. FINDINGS: Mild swelling left submandibular region with prominent lymph nodes. No fluid collection. No airway narrowing. IMPRESSION: Mild swelling left submandibular region with reactive lymph nodes. No fluid collection. No airway narrowing. Correlate with infectious process.
[2025-01-19] MEDS: AMOXIC-POT CLAV 875-125MG 1 EACH TAB PO STA (05:23)
[2025-01-19 06:21] VITALS: BP 153/90; PULSE 67
== END 2025-01-19 06:22 | disposition home or self-care (01) ==
LOC: EC 01:37
DX: K04.7 Periapical abscess without sinus (principal); Z87.891 Personal history of nicotine dependence; Z88.5 Allergy status to narcotic agent; Z88.8 Allergy status to other drugs, medicaments and biological substances
CPT/HCPCS: 36415; 80053; 83605; 85025; 70491; 99284; 96374; J1885; Q9967

== ENCOUNTER → 2025-01-26 | Outpatient (CLI) | payer MEDICARE ==
--- NOTE | 2025-01-26 12:26 | US ---
EXAMINATION TYPE: US abdomen complete DATE OF EXAM: 01/26/2025 COMPARISON: CT September 08, 2024 CLINICAL INDICATION: Male, 59 years old with history of R10.13 AB PAIN; Right sided and midline abdom inal pain x 1 week. Hx lap band surgery 2010 TECHNIQUE: Grayscale and color Doppler imaging of the abdomen was performed. FINDINGS: EXAM MEASUREMENTS: Liver Length: 21.8 cm Gallbladder Wall: 0.24 cm CBD: 0.30 cm, color Doppler imaging was utilized to isolate the common bile duct for measurement. Spleen: 15.7 cm Right Kidney: 12.9 x 6.5 x 6.0 cm Left Kidney: 12.2 x 4.9 x 6.2 cm STUD DAIRY [employer]ER NOTES: Exam is limited due to gas and pt body habitus. Pancreas: Obscured Liver: *Enlarged. Increased echogenicity and attenuation. *Hypoechoic area seen adjacent to gallbladder: 1.3 x 1.6 x 1.2 cm. Gallbladder: Limited. Possible hyperechoic material in the neck versus gas: 0.9 x 1.8 x 1.1 cm. Evidence for sonographic Fong's sign: No CBD: wnl Spleen: Enlarged Right Kidney *Hyperechoic focus seen lower: 1.3 x 1.0 x 0.5 cm. Left Kidney: wnl, No hydronephrosis, calculi or masses seen Upper IVC: wnl Abd Aorta: Proximal segment appears ectatic. Mid and distal aorta and iliac arteries were obscured. Question complex area seen superficially under the skin at the level of the distal aorta. Findings consistent with lap band port Suboptimal study. There is hepatomegaly. Visualized liver is heterogeneously hyperechoic. Evaluation for focal masses suboptimal due to the heterogeneity. Probable intraluminal gallstone. No abnormal wa ll thickening or pericholecystic fluid. Small amount obstructing calculus lower pole right kidney. No hydronephrosis seen bilaterally. Splenomegaly is present. IMPRESSION: 1. Probable gallstone without ultrasound evidence for acute cholecystitis. Suboptimal study without a cute findings seen to account for patient's symptoms. 2. Hepatosplenomegaly with diffuse fatty infiltrative Hepatocellular disease noted. [facility], , 01/26/2025 12:24 PM
== END | disposition home or self-care (01) ==
LOC: RADUSWWP 10:51
PROVIDERS: ATTEND Family Medicine
DX: K76.0 Fatty (change of) liver, not elsewhere classified (principal); R16.2 Hepatomegaly with splenomegaly, not elsewhere classified; K68.9 Other disorders of retroperitoneum
CPT/HCPCS: 76700

== ENCOUNTER 2025-02-07 13:58 | Observation (INO) | payer MEDICARE ==
--- NOTE | 2025-02-07 14:36 | ED ---
Chest Pain HPI - General Chief Complaint: Chest Pain Stated Complaint: abd/chest pain Time Seen by Provider: 02/07/25 14:33 Source: patient, RN notes reviewed Mode of arrival: ambulatory Limitations: no limitations - History of Present Illness Initial Comments: 59-year-old male presenting for chest pain x 3 days. Describes a worsening, intermittent, right-sided sharp chest pain that radiates between his shoulder blades. Does endorse associated shortness of breath. States he has not eaten anything in 3 days as he is scared it will flareup the pain. States he had an ultrasound of the gallbladder last week and told he had "a bad gallbladder". Admits to diarrhea. Denies nausea or vomiting. Denies blood thinners. Last AL was 4 years ago. - Related Data Home Medications Medication Instructions Recorded Confirmed PARoxetine HCL [Paxil] 40 mg PO DAILY 04/29/14 02/07/25 HYDROcodone/APAP 10-325MG [[place] 1 tab PO QID 08/24/16 02/07/25 10-325] ALPRAZolam [Xanax] 0.5 mg PO HS 08/15/24 02/07/25 Ibuprofen [Motrin] 800 mg PO TID 08/15/24 02/07/25 traZODone HCL [Desyrel] 100 mg PO HS 08/15/24 02/07/25 Empagliflozin/Metformin HCl 1 tab PO BID 02/07/25 02/07/25 [Synjardy 5-1,000 mg Tablet] Nebivolol [Bystolic] 5 mg PO DAILY 02/07/25 02/07/25 Tirzepatide [Mounjaro] 2.5 mg SQ SA@1200 02/07/25 02/07/25 amLODIPine [Norvasc] 10 mg PO DAILY 02/07/25 02/07/25 Allergies Allergy/AdvReac Type Severity Reaction Status Date / Time lisinopril Allergy Rash/Hives Verified 02/07/25 15:23 hydromorphone HCl AdvReac Hallucinati Verified 02/07/25 15:23 [From Dilaudid] ons meperidine HCl [From Demerol] AdvReac Hallucinati Verified 02/07/25 15:23 ons Review of Systems ROS Statement: Those systems with pertinent positive or pertinent negative responses have been documented in the HPI. ROS Other: All systems not noted in ROS Statement are negative. EKG Findings - EKG Results: EKG: interpreted by ERMD (EKG reveals normal sinus rhythm with no ST changes. Ventricular rate 75 bpm, TX interval 205, QRS duration 118, QT/QTc 374/402) Past Medical History Past Medical History: Cancer, Diabetes Mellitus, Hypertension, Myocardial Infarction ([place]) Additional Past Medical History / Comment(s): gout, chronic back/hip pain, multiple myeloma Last Myocardial Infarction Date:: 02/04/21 History of Any Multi-Drug Resistant Organisms: None Reported Past Surgical History: Orthopedic Surgery Additional Past Surgical History / Comment(s): thymus gland removal, HIP SURGERY., lap band by boutt Past Anesthesia/Blood Transfusion Reactions: No Reported Reaction Past Psychological History: Depression Smoking Status: Former smoker Past Alcohol Use History: None Reported Past Drug Use History: None Reported General Exam Limitations: no limitations General appearance: alert, in no apparent distress Head exam: Present: atraumatic, normocephalic, normal inspection Eye exam: Present: normal appearance, PERRL, EOMI. Absent: scleral icterus, conjunctival injection, periorbital swelling ENT exam: Present: normal exam, mucous membranes moist Respiratory exam: Present: normal lung sounds bilaterally. Absent: respiratory distress, wheezes, rales, rhonchi, stridor, chest wall tenderness Cardiovascular Exam: Present: regular rate, normal rhythm, normal heart sounds. Absent: systolic murmur, diastolic murmur, rubs, gallop, clicks GI/Abdominal exam: Present: soft, tenderness (Positive Fong sign. Diffuse right upper quadrant tenderness to palpation), normal bowel sounds. Absent: distended, guarding, rebound, rigid Neurological exam: Present: alert, oriented X3 Psychiatric exam: Present: normal affect, normal mood Skin exam: Present: warm, dry, intact, normal color. Absent: rash Course Vital Signs 02/07/25 02/07/25 02/07/25 14:00 16:25 17:53 Temperature 99.4 F Pulse Rate 80 71 76 Respiratory 20 20 18 Rate Blood Pressure 135/83 137/74 144/74 O2 Sat by Pulse 99 99 99 Oximetry Chest Pain MDM - MDM Was pt. sent in by a medical professional or institution (, PA, ELEVATOR EXAMINER, urgent care, hospital, or snf...) When possible be specific @ -No Did you speak to anyone other than the patient for history (EMS, parent, family, police, friend...)? What history was obtained from this source @ -No Did you review nursing and triage notes (agree or disagree)? Why? @ -I reviewed and agree with nursing and triage notes Were old charts reviewed (outside hosp., previous admission, EMS record, old EKG, old radiological studies, urgent care reports/EKG's, snf records)? Report findings @ -No old charts were reviewed Differential Diagnosis (chest pain, altered mental status, abdominal pain women, abdominal pain men, vaginal bleeding, weakness, fever, dyspnea, syncope, headache, dizziness, GI bleed, back pain, seizure, CVA, palpatations, mental health, musculoskeletal)? @ -Differential Chest Pain: Stable Angina, Unstable Angina, STEMI, NSTEMI Aortic Dissection, Pneumothorax, Musculoskeletal, Esophageal Spasm GERD, Cholecystitis, Pancreatitis, Zoster, this is not meant to be an all-inclusive list. EKG interpreted by me (3pts min.). @ -As above X-rays interpreted by me (1pt min.). @ -X-ray chest reveals mild cardiomegaly without acute pulmonary process CT interpreted by me (1pt min.). @ -CT chest angio reveals suboptimal enhancement of the pulmonary arterial circulation but no definitive filling defect to suggest PE, no acute cardiopulmonary disease, stable pulmonary nodules U/S interpreted by me (1pt. min.). @ -Ultrasound gallbladder reveals no ultrasound evidence for acute cholecystitis with no visualized gallstones, wall thickening or surrounding fluid What testing was considered but not performed or refused? (CT, X-rays, U/S, labs)? Why? @ -None What meds were considered but not given or refused? Why? @ -None Did you discuss the management of the patient with other professionals (professionals i.e. , PA, ELEVATOR EXAMINER, lab, RT, psych nurse, social service assistant, cooperative education director, teacher, principal gifts officer, leather case finisher)? Give summary @ -I spoke with Dr. Lucas who accepts admission for biliary dyskinesia, requests patient is n.p.o. on antibiotics. I also spoke with patient's PCP Dr. Pennington who also accepts admission Was smoking cessation discussed for >3mins.? @ -No Was critical care preformed (if so, how long)? @ -No Were there social determinants of health that impacted care today? How? (Homelessness, low income, unemployed, alcoholism, drug addiction, transportation, low edu. Level, literacy, decrease access to med. care, nursing home, rehab)? @ -No Was there de-escalation of care discussed even if they declined (Discuss DNR or withdrawal of care, Hospice)? DNR status @ -No What co-morbidities impacted this encounter? (DM, HTN, Smoking, COPD, CAD, Cancer, CVA, ARF, Chemo, Hep., AIDS, mental health diagnosis, sleep apnea, morbid obesity)? @ -None Was patient admitted / discharged? Hospital course, mention meds given and route, prescriptions, significant lab abnormalities, going to OR and other pertinent info. @ -Admitted. 59-year-old male presenting for chest pain x 3 days. Chest pain is right-sided, sharp, radiates to the back between the shoulder blades. Patient was diagnosed with gallstones last week. Vital signs are within acceptable limits. Positive Fong sign on examination. Provided with IV fluids and analgesics. Lab work remarkable for elevated D-dimer at 1.39. White blood cell count normal at 6, troponin undetectable, lactic 1, lipase and amylase unremar kable. X-ray chest reveals mild cardiomegaly without acute pulmonary process. EKG reveals normal sinus rhythm with no ST changes. CT chest angio reveals no definitive filling defect to suggest PE, no cardiopulmonary process. Ultrasound gallbladder reveals no ultrasound evidence for acute cholecystitis with no visualized gallstones, wall thickening or surrounding fluid. Results discussed with patient. Upon reevaluation, patient reports pain continues to be a 10 out of 10. As patient has previously followed with Dr. Velasco, patient will be admitted to medicine with consultation to Dr. Lucas. Patient is made n.p.o. and IV antibiotics started per Dr. Lucas. Case was discussed with my ED attending Dr. Corcoran. Undiagnosed new problem with uncertain prognosis? @ -No Drug Therapy requiring intensive monitoring for toxicity (Heparin, Nitro, Insulin, Cardizem)? @ -No Were any procedures done? @ -No Diagnosis/symptom? @ -Biliary dyskinesia Acute, or Chronic, or Acute on Chronic? @ -Acute Uncomplicated (without systemic symptoms) or Complicated (systemic symptoms)? @ -Uncomplicated Side effects of treatment? @ -No Exacerbation, Progression, or Severe Exacerbation? @ -No Poses a threat to life or bodily function? How? (Chest pain, [place], AL, pneumonia, PE, COPD, DKA, ARF, appy, cholecystitis, CVA, Diverticulitis, Homicidal, Suicidal, threat to staff... and all critical care pts) @ -Not at this time Disposition Clinical Impression: Biliary dyskinesia Disposition: ADMITTED IP TO THIS HOSP Referrals: Perez Pennington MD [Primary Care Provider] - 1-2 days Time of Disposition: 18:40
[2025-02-07] MEDS: SODIUM CHLORIDE 0.9% 1,000 ML IV STA (14:49)
[2025-02-07] MEDS: KETOROLAC 15 MG/ML 1 ML VIAL IVP STA ×2 (14:49→17:55)
--- NOTE | 2025-02-07 15:03 | XR ---
EXAMINATION TYPE: XR chest 2V DATE OF EXAM: 02/07/2025 CLINICAL INDICATION: Male, 59 years old with history of chest pain, TECHNIQUE: Frontal and lateral views of the chest are obtained. COMPARISON: Prior chest CT September 08, 2024 FINDINGS: Overlying sternal wires are redemonstrated. There is no focal air space opacity, pleural ef fusion, or pneumothorax seen. The cardiac silhouette size is mildly enlarged. The osseous structur es are intact. IMPRESSION: Mild cardiomegaly without acute pulmonary process. [facility], , 02/07/2025 3:01 PM
[2025-02-07 15:07] LABS: Partial Thromboplastin Time 22.4 sec (22.0-30.0); Prothrombin Time 10.9 sec (10.0-12.5)
[2025-02-07 15:08] LABS: ALT 16 U/L (4-49); AST 19 U/L (17-59); African American GFR (CKD) >90 (>60 ml/min/1.73 sqM); Albumin 4.2 g/dL (3.5-5.0); Alkaline Phosphatase 76 U/L (38-126); Amylase 42 U/L (30-110); Anion Gap 8 mmol/L; Blood Urea Nitrogen 15 mg/dL (9-20); Calcium 8.9 mg/dL (8.4-10.2); Carbon Dioxide 23 mmol/L (22-30); Chloride 102 mmol/L (98-107); Glucose 90 mg/dL (74-99); Lipase 72 U/L (23-300); Non-African American GFR(CKD) 84 (>60 ml/min/1.73 sqM); Potassium 4.1 mmol/L (3.5-5.1); Sodium 133 mmol/L (137-145); Total Bilirubin 0.5 mg/dL (0.2-1.3); Total Protein 7.2 g/dL (6.3-8.2)
[2025-02-07 15:45] LABS: Basophils # (A) 0.03 10*3/uL (0.00-0.10); Basophils % (A) 0.5 %; Eosinophils # (A) 0.09 10*3/uL (0.04-0.35); Eosinophils % (A) 1.4 %; HCT 32.6 % (39.6-50.0); HGB 11.2 g/dL (13.0-17.0); Lymphocytes # (A) 1.63 10*3/uL (0.90-5.00); MCH 27.2 pg (27.0-32.0); MCHC 34.4 g/dL (32.0-37.0); MCV 79.1 fL (80.0-97.0); Mean Platelet Volume 9.3 fL (9.5-12.2); Monocytes # (A) 0.34 10*3/uL (0.20-1.00); Monocytes % (A) 5.2 %; Neutrophils % (A) 67.6 %; Platelet Count 111 10*3/uL (140-440); RBC 4.12 10*6/uL (4.40-5.60); RDW 13.5 % (11.5-14.5); WBC 6.51 10*3/uL (4.50-10.00)
--- NOTE | 2025-02-07 16:39 | CT ---
EXAMINATION TYPE: CT chest angio for PE CT DLP: 1193.8 mGycm, Automated exposure control for dose reduction was used. DATE OF EXAM: 02/07/2025 4:29 PM COMPARISON: Chest radiograph from same day. CTA chest 09/10/2024, CT chest abdomen and pelvis 024, 05/19/2023 CLINICAL INDICATION:Male, 59 years old with history of chest pain, elevated D-dimer; right side chest pain rad back between shoulder blads +sob. Elevated d-dimer. Dx with gallstones last week TECHNIQUE/CONTRAST: CTA scan of the thorax is performed with IV Contrast, patient injected with 90ml mL of Isovue 300, pu lmonary embolism protocol. MIP images are created and reviewed. FINDINGS: Pulmonary Artery: Suboptimal pulmonary artery enhancement. There is no evidence for a filling defect within the pulmonary vasculature to suggest acute pulmonary embolism. The pulmonary artery is mildly dilated measuring up to 3.3 cm which can be seen with pulmonary arterial hypertension. Lungs/Pleura: No evidence of focal consolidation, pleural effusion or pneumothorax. Right upper lobe calcified granulomas. Right middle lobe peripheral 3.3 mm pulmonary nodule (series 406, image 85). St able right midlung pleural-based 2.8 mm pulmonary nodule (series 406, image 75). These are stable brandy ing back to at least 2022 and considered benign. Airway: Large airways are patent. Heart: Size within normal limits.No pericardial effusion. Mild coronary artery calcifications present . Vasculature: No evidence of aortic aneurysm. Mediastinum: No evidence of adenopathy. Musculoskeletal: No acute osseous abnormalities. Sternotomy wires. DISH of the mid to lower thoracic spine. Soft Tissues: Unremarkable. Lower neck: No significant findings. Upper Abdomen: Gastric lap band. Couple of bilateral nonobstructive renal calculi measuring up to 3 m m. IMPRESSION: 1. Suboptimal enhancement of the pulmonary arterial circulation but no definite filling defect to carter ggest pulmonary embolism. No acute cardiopulmonary disease. 2. Couple of stable pulmonary nodules dating back to at least 2022 and considered benign. 3. Nonobstructive bilateral renal calculi. [facility], , 02/07/2025 4:37 PM
--- NOTE | 2025-02-07 17:47 | US ---
EXAMINATION TYPE: US gallbladder DATE OF EXAM: 02/07/2025 COMPARISON: US 01/26/2025 CLINICAL INDICATION: Male, 59 years old with history of RUQ abd pain, + murphys sign; RUQ abd pain fo r the last few weeks but increasing TECHNIQUE: Grayscale and color Doppler imaging of the right upper quadrant was performed. FINDINGS: EXAM MEASUREMENTS: Liver Length: 23.5 cm Gallbladder Wall: 0.2 cm CBD: 0.4 cm Right Kidney: 11.3 x 5.4 x 5.1cm SET UP TECHNICIAN NOTES:severely limited due to patient body habitus and overlying gas Pancreas: Obscured by bowel gas Liver: very limited evaluation due to overlying bowel gas and pt body habitus. increased attenuation , difficult to penetrate. hepatomegaly. 1.6 x 1.1 x 1.4cm hypoechoic area seen adjacent to the gallbl adder Gallbladder: previous echogenic area vs gas not visualized today, however limited due to habitus and overlying gas Evidence for sonographic Fong's sign: yes CBD: wnl Right Kidney: 7mm echogenic area again seen in the inferior pole Pancreas obscured by overlying bowel gas. Limited evaluation of the liver due to overlying bowel gas and patient's body habitus. There is diffuse increased attenuation and difficult to penetrate. Liver is enlarged. Hypoechoic region adjacent to gallbladder favored to represent focal fatty infiltration. The gallbladder demonstrates no wall thickening or visualized gallstones. No pericholecystic fluid. Reported positive sonographic Fong sign. Common bile duct is within normal limits. Nonobstructive r ight renal calculus. No hydronephrosis or solid mass identified within the right kidney. IMPRESSION: Limited examination due to overlying bowel gas and patient's body habitus. 1. No ultrasound evidence for acute cholecystitis with no visualized gallstones, wall thickening or surrounding fluid however there is reported positive sonographic Fong's sign. Consider further eval uation with nuclear medicine HIDA scan as clinically indicated. 2. Hepatic steatosis with hepatomegaly. 3. Nonobstructive right renal calculus. [facility], , 02/07/2025 5:45 PM
[2025-02-07] MEDS ORDERED: NALOXONE 0.4 MG/ML 1 ML VIAL IV PRN (18:34)
[2025-02-07] MEDS: PIPERACILLIN-TAZOBACTAM 3.375 GM in SODIUM CHLORIDE 0.9% 100 ML IVPB STA (18:57)
[2025-02-07] MEDS: SODIUM CHLORIDE 0.9% 1,000 ML IV SCH (19:07)
--- NOTE | 2025-02-08 08:23 | P.HPIM ---
History of Present Illness H&P Date: 02/08/25 Chief Complaint: Abdominal pain. The patient is a 59-year-old white male with known history of multiple myeloma and obesity who saw me several weeks ago for abdominal pain. Ultrasound at that time did show probable gallstone but no acute cholecystitis pain continued and he is here for biliary dyskinesia. Appreciate surgical input. I suspect he will need cholecystectomy given his symptomatology. Multiple myeloma has been stable. Underlying history of diabetes. Review of Systems Constitutional: Reports as per HPI Eyes: denies blurred vision, denies pain Ears, nose, mouth and throat: Denies headache, Denies sore throat Cardiovascular: Denies chest pain, Denies shortness of breath Respiratory: Denies cough Gastrointestinal: Reports as per HPI, Reports abdominal pain Past Medical History Past Medical History: Cancer, Diabetes Mellitus, Hypertension, Myocardial Infarction ([place]) Additional Past Medical History / Comment(s): gout, chronic back/hip pain, multiple myeloma Last Myocardial Infarction Date:: 02/04/21 History of Any Multi-Drug Resistant Organisms: None Reported Past Surgical History: Orthopedic Surgery Additional Past Surgical History / Comment(s): thymus gland removal, HIP SURGERY., lap band by romelt Past Anesthesia/Blood Transfusion Reactions: No Reported Reaction Past Psychological History: Depression Smoking Status: Former smoker Past Alcohol Use History: None Reported Past Drug Use History: None Reported Medications and Allergies Home Medications Medication Instructions Recorded Confirmed Type PARoxetine HCL [Paxil] 40 mg PO DAILY 04/29/14 02/07/25 History HYDROcodone/APAP 10-325MG [[place] 1 tab PO QID 08/24/16 02/07/25 History 10-325] ALPRAZolam [Xanax] 0.5 mg PO HS 08/15/24 02/07/25 History Ibuprofen [Motrin] 800 mg PO TID 08/15/24 02/07/25 History traZODone HCL [Desyrel] 100 mg PO HS 08/15/24 02/07/25 History Empagliflozin/Metformin HCl 1 tab PO BID 02/07/25 02/07/25 History [Synjardy 5-1,000 mg Tablet] Nebivolol [Bystolic] 5 mg PO DAILY 02/07/25 02/07/25 History Tirzepatide [Mounjaro] 2.5 mg SQ SA@1200 02/07/25 02/07/25 History amLODIPine [Norvasc] 10 mg PO DAILY 02/07/25 02/07/25 History Allergies Allergy/AdvReac Type Severity Reaction Status Date / Time lisinopril Allergy Rash/Hives Verified 02/07/25 15:23 hydromorphone HCl AdvReac Hallucinati Verified 02/07/25 15:23 [From Dilaudid] ons meperidine HCl [From Demerol] AdvReac Hallucinati Verified 02/07/25 15:23 ons Physical Exam Vitals: Vital Signs Temp Pulse Pulse Resp BP BP Pulse Ox 02/08/25 07:05 98.1 F 82 18 150/81 98 02/08/25 01:35 98.2 F 76 18 117/68 93 L 02/07/25 22:07 98.2 F 78 18 161/96 98 02/07/25 21:14 99.1 F 72 20 138/79 98 02/07/25 20:33 68 20 135/83 98 02/07/25 17:53 76 18 144/74 99 02/07/25 16:25 71 20 137/74 99 02/07/25 14:00 99.4 F 80 20 135/83 99 Intake and Output 02/07/25 02/08/25 02/08/25 22:59 06:59 14:59 Other: Voiding Method Toilet Toilet # Voids 0 2 Weight 147.418 kg - Constitutional General appearance: no acute distress, obese - EENT Eyes: EOMI - Neck Neck: no lymphadenopathy - Respiratory Respiratory: bilateral: CTA - Cardiovascular Rhythm: regular Heart sounds: normal: S1, S2 Abnormal Heart Sounds: no S3 Gallop - Gastrointestinal General gastrointestinal: tenderness - Integumentary Integumentary: no cellulitis Results CBC & Chem 7: 02/07/25 14:56 02/07/25 14:29 Labs: Abnormal Lab Results - Last 24 Hours (Table) 02/07/25 02/07/25 02/07/25 Range/Units 14:29 14:29 14:56 RBC 4.12 L (4.40-5.60) 10*6/uL Hgb 11.2 L (13.0-17.0) g/dL Hct 32.6 L (39.6-50.0) % MCV 79.1 L (80.0-97.0) fL Plt Count 111 L (140-440) 10*3/uL MPV 9.3 L (9.5-12.2) fL D-Dimer 1.39 H (<0.60) mg/L FEU Sodium 133 L (137-145) mmol/L Thrombosis Risk Factor Assmnt - Choose All That Apply Each Factor Represents 1 point: Obesity (BMI >25) Each Risk Factor Represents 2 Points: Age 61-74 years Thrombosis Risk Factor Assessment Total Risk Factor Score: 3 Thrombosis Risk Factor Assessment Level: Moderate Risk Assessment and Plan (1) Biliary dyskinesia Current Visit: Yes Status: Acute Code(s): K82.8 - OTHER SPECIFIED DISEASES OF GALLBLADDER SNOMED Code(s): 473986148 (2) Depression Current Visit: No Status: Acute Code(s): F32.A - DEPRESSION, UNSPECIFIED SNOMED Code(s): 37844967 (3) Diabetes Current Visit: No Status: Acute Code(s): E11.9 - TYPE 2 DIABETES MELLITUS WITHOUT COMPLICATIONS SNOMED Code(s): 10017196 (4) Multiple myeloma Current Visit: No Status: Chronic Priority: High Code(s): C90.00 - MULTIPLE MYELOMA NOT HAVING ACHIEVED REMISSION SNOMED Code(s): 437290725 Plan: The patient is being evaluated by general surgery and I suspect will benefit from cholecystectomy. Reconcile home medications. Element of opiate dependence. Will continue to follow. Otherwise keep n.p.o. for today if surgery is possible . Time with Patient: Greater than 30
[2025-02-08] MEDS: HYDROcodone/APAP 10-325MG 1 EACH TAB PO SCH (08:49)
[2025-02-08] MEDS: IBUPROFEN 800 MG TAB PO SCH (08:49)
[2025-02-08] MEDS: DAPAGLIFLOZIN PROPANEDIOL 5 MG TABLET PO SCH (08:50)
[2025-02-08] MEDS: NEBIVOLOL 5 MG TAB PO SCH (08:50)
[2025-02-08] MEDS: PARoxetine 20 MG TAB PO SCH (08:51)
[2025-02-08] MEDS: amLODIPine 10 MG TAB PO SCH (08:51)
[2025-02-08] MEDS: metFORMIN 500 MG TAB PO SCH (09:13)
[2025-02-08] MEDS: KETOROLAC 15 MG/ML 1 ML VIAL IVP PRN (11:25)
[2025-02-08] MEDS: ALPRAZolam 0.5 MG TAB PO STA (11:25)
[2025-02-08] MEDS: IV FLUID CONTINUATION 500 ML IV ONE (13:29)
[2025-02-08] MEDS: ONDANSETRON 4 MG/2 ML VIAL IVP PRN (13:48)
[2025-02-08] MEDS: HEPARIN SODIUM,PORCINE 5,000 UNIT/ML 1 ML VIAL SQ STA (13:48)
[2025-02-08] MEDS: DEXAMETHASONE SOD PHOSPHATE 4 MG/ML 1 ML VIAL IVP STA (13:48)
--- NOTE | 2025-02-08 13:49 | P.GSHP ---
History of Present Illness H&P Date: 02/08/25 Chief Complaint: Right upper quadrant pain, cholelithiasis Is a 59-year-old male who had acute abdominal pain last night. Patient states he had 10 out of 10 right quadrant pain was related to his back. His previous ultrasound suggestive of a stone in the neck of the gallbladder. Past Medical History Past Medical History: Cancer, Diabetes Mellitus, Hypertension, Myocardial Infarction ([place]) Additional Past Medical History / Comment(s): gout, chronic back/hip pain, multiple myeloma Last Myocardial Infarction Date:: 02/04/21 History of Any Multi-Drug Resistant Organisms: None Reported Past Surgical History: Orthopedic Surgery Additional Past Surgical History / Comment(s): thymus gland removal, HIP SURGERY ., lap band by romelt Past Anesthesia/Blood Transfusion Reactions: No Reported Reaction Past Psychological History: Depression Smoking Status: Former smoker Past Alcohol Use History: None Reported Past Drug Use History: None Reported Medications and Allergies Home Medications Medication Instructions Recorded Confirmed Type PARoxetine HCL [Paxil] 40 mg PO DAILY 04/29/14 02/07/25 History HYDROcodone/APAP 10-325MG [[place] 1 tab PO QID 08/24/16 02/07/25 History 10-325] ALPRAZolam [Xanax] 0.5 mg PO HS 08/15/24 02/07/25 History Ibuprofen [Motrin] 800 mg PO TID 08/15/24 02/07/25 History traZODone HCL [Desyrel] 100 mg PO HS 08/15/24 02/07/25 History Empagliflozin/Metformin HCl 1 tab PO BID 02/07/25 02/07/25 History [Synjardy 5-1,000 mg Tablet] Nebivolol [Bystolic] 5 mg PO DAILY 02/07/25 02/07/25 History Tirzepatide [Mounjaro] 2.5 mg SQ SA@1200 02/07/25 02/07/25 History amLODIPine [Norvasc] 10 mg PO DAILY 02/07/25 02/07/25 History Allergies Allergy/AdvReac Type Severity Reaction Status Date / Time lisinopril Allergy Rash/Hives Verified 02/07/25 15:23 hydromorphone HCl AdvReac Hallucinati Verified 02/07/25 15:23 [From Dilaudid] ons meperidine HCl [From Demerol] AdvReac Hallucinati Verified 02/07/25 15:23 ons Surgical - Exam Vital Signs Temp Pulse Resp BP Pulse Ox 99.4 F 80 20 135/83 99 02/07/25 14:00 02/07/25 14:00 02/07/25 14:00 02/07/25 14:00 02/07/25 14:00 - General well developed, well nourished - Eyes PERRL - ENT normal pinna - Neck no masses - Respiratory normal expansion - Cardiovascular Rhythm: regular - Abdomen Abdomen: non tender Results - Labs 02/07/25 14:56 02/07/25 14:29 Abnormal Lab Results - Last 24 Hours (Table) 02/07/25 02/07/25 02/07/25 Range/Units 14:29 14:29 14:56 RBC 4.12 L (4.40-5.60) 10*6/uL Hgb 11.2 L (13.0-17.0) g/dL Hct 32.6 L (39.6-50.0) % MCV 79.1 L (80.0-97.0) fL Plt Count 111 L (140-440) 10*3/uL MPV 9.3 L (9.5-12.2) fL D-Dimer 1.39 H (<0.60) mg/L FEU Sodium 133 L (137-145) mmol/L Diabetes panel 02/07/25 Range/Units 14:29 Sodium 133 L (137-145) mmol/L Potassium 4.1 (3.5-5.1) mmol/L Chloride 102 (98-107) mmol/L Carbon Dioxide 23 (22-30) mmol/L BUN 15 (9-20) mg/dL Creatinine 0.98 (0.66-1.25) mg/dL Glucose 90 (74-99) mg/dL Calcium 8.9 (8.4-10.2) mg/dL AST 19 (17-59) U/L ALT 16 (4-49) U/L Alkaline Phosphatase 76 (38-126) U/L Total Protein 7.2 (6.3-8.2) g/dL Albumin 4.2 (3.5-5.0) g/dL Calcium panel 02/07/25 Range/Units 14:29 Calcium 8.9 (8.4-10.2) mg/dL Albumin 4.2 (3.5-5.0) g/dL Pituitary panel 02/07/25 Range/Units 14:29 Sodium 133 L (137-145) mmol/L Potassium 4.1 (3.5-5.1) mmol/L Chloride 102 (98-107) mmol/L Carbon Dioxide 23 (22-30) mmol/L BUN 15 (9-20) mg/dL Creatinine 0.98 (0.66-1.25) mg/dL Glucose 90 (74-99) mg/dL Calcium 8.9 (8.4-10.2) mg/dL Adrenal panel 02/07/25 Range/Units 14:29 Sodium 133 L (137-145) mmol/L Potassium 4.1 (3.5-5.1) mmol/L Chloride 102 (98-107) mmol/L Carbon Dioxide 23 (22-30) mmol/L BUN 15 (9-20) mg/dL Creatinine 0.98 (0.66-1.25) mg/dL Glucose 90 (74-99) mg/dL Calcium 8.9 (8.4-10.2) mg/dL Total Bilirubin 0.5 (0.2-1.3) mg/dL AST 19 (17-59) U/L ALT 16 (4-49) U/L Alkaline Phosphatase 76 (38-126) U/L Total Protein 7.2 (6.3-8.2) g/dL Albumin 4.2 (3.5-5.0) g/dL Assessment and Plan Plan: Gerd quadrant pain Cholelithiasis Patient will undergo laparoscopic cholecystectomy.
[2025-02-08 14:11] LABS: Glucose,Whole Blood 101 mg/dL (70-110)
[2025-02-08] MEDS: FAMOTIDINE 20 MG/2 ML VIAL IVP ONE (14:18)
[2025-02-08] MEDS ORDERED: fentaNYL (PF) 50 MCG/ML 2 ML AMP ONE (14:21)
[2025-02-08] MEDS ORDERED: MIDAZOLAM 2 MG/2 ML VIAL ONE (14:21)
[2025-02-08] MEDS ORDERED: LIDOCAINE 1% INJ 10MG/ML (20 ML MDV) ONE (14:21)
[2025-02-08] MEDS ORDERED: GLYCOPYRROLATE 0.2 MG/ML 2 ML VIAL ONE (14:21)
[2025-02-08] MEDS ORDERED: SUCCINYLCHOLINE CHLORIDE 200 MG/10 ML VIAL IV ONE (14:21)
[2025-02-08] MEDS ORDERED: PROPOFOL 10 MG/ML 20 ML VIAL IV ONE (14:21)
[2025-02-08] MEDS ORDERED: ROCURONIUM 10 MG/ML (5 ML VIAL) IV ONE (14:21)
[2025-02-08] MEDS ORDERED: NEOSTIGMINE 1 MG/ML 10 ML VIAL ONE (14:21)
[2025-02-08] MEDS: SODIUM CHLORIDE 0.9% 100 ML with ceFAZolin 2,000 MG IV ONE (14:25)
[2025-02-08] MEDS: LIDOCAINE 1%-EPI 1:100,000 20 ML VIAL SQ ONE ×2 (14:41→14:51)
[2025-02-08] MEDS: LACTATED RINGERS 1,000 ML IV ONE (14:46)
[2025-02-08] MEDS ORDERED: HYDROmorphone 2 MG/ML 1 ML SYRINGE IVP PRN (15:22)
--- NOTE | 2025-02-08 15:22 | P.OP ---
Date of Procedure: 02/08/25 Preoperative Diagnosis: Lap cholecystitis Postoperative Diagnosis: Cholecystitis Procedure(s) Performed: Laparoscopic cholecystectomy Anesthesia: CLARA Surgeon: Roger Lucas Estimated Blood Loss (ml): 10 Pathology: other (Gallbladder) Condition: stable Disposition: PACU Description of Procedure: The patient was placed on the operating table. The patient received a general endotracheal tube anesthesia. The patients abdomen was prepped and draped in the usual sterile fashion. Through an infraumbilical stab incision, the fascia of the anterior abdominal wall was grasped with a pair of Kochers and then the Veress needle was placed in the peritoneal cavity. Position of the Veress needle was confirmed with positive drop test. The abdomen was then insufflated. After adequate insufflation, the 10 mm trocar was placed in the peritoneal cavity. Following this the laparoscope was placed in the peritoneal cavity. The patient was placed in the head-up, right side up position and then a 5 mm trocar was placed in the right lateral and right subcostal position under direct visualization. A 8 mm trocar was placed in the epigastric position. The gallbladder was grasped in the fundus and infundibulum. Traction on the gallbladder was placed in the lateral and the cephalad positions. The triangle of Calot was visualized.. The cystic duct was bluntly dissected until the union of the cystic duct and common bile duct was seen. A critical view of safety was achieved. The cystic duct was then divided and sealed with the Harmonic scissors. A PDS Endoloop was then placed throughout the cystic duct stump. The cystic artery divided and sealed with the Harmonic scissors. The gallbladder was then removed from the liver bed using Harmonic scissors. The gallbladder was then extracted through the epigastric port site. Operative field was checked for any bleeding spots and Harmonic scissors was used to coagulate the liver bed. The abdomen was irrigated. The trocars were removed. The skin was closed using interrupted 3-0 Vicryl suture. Dermabond dressing were applied. The patient tolerated the procedure well.
[2025-02-08 15:57] LABS: Glucose,Whole Blood 150 mg/dL (70-110)
[2025-02-08] MEDS ORDERED: fentaNYL (PF) 50 MCG/ML 2 ML AMP IVP PRN (16:07)
[2025-02-08] MEDS: LABETALOL SYRINGE 5 MG/ML (4 ML SYR) IVP STA (16:19)
[2025-02-08] MEDS: ceFAZolin 3 GM in SODIUM CHLORIDE 0.9% 100 ML IVPB ONE (17:34)
[2025-02-08] MEDS: FAMOTIDINE 20 MG/2 ML VIAL IV STA (17:34)
[2025-02-08] MEDS: LABETALOL 5 MG/ML VIAL MDV IVP STA (18:02)
[2025-02-08] MEDS: traZODone HCL 100 MG TAB PO SCH (22:10)
[2025-02-08] MEDS: ALPRAZolam 0.5 MG TAB PO SCH (22:10)
[2025-02-09] MEDS: MORPHINE SULFATE 4 MG/ML SYRINGE IVP PRN (03:57)
[2025-02-09] MEDS: ENOXAPARIN 40 MG/0.4 ML SYRINGE SQ SCH (08:25)
--- NOTE | 2025-02-09 08:25 | P.DS ---
Providers Date of admission: 02/07/25 18:38 Attending physician: Perez Pennington Consults: 02/07/25 18:34 Consult Physician Urgent Consulting Provider: Roger Lucas Consult Reason/Comments: Biliary Dyskinesia Do you want consulting provider notified?: Yes Primary care physician: Perez Pennington - Discharge Diagnosis(es) (1) Biliary dyskinesia Current Visit: Yes Status: Acute (2) Diabetes Current Visit: No Status: Acute (3) Multiple myeloma Current Visit: No Status: Chronic Priority: High (4) History of laparoscopic cholecystectomy Current Visit: Yes Status: Acute (5) Depression Current Visit: No Status: Acute Hospital Course: This is a 59-year-old male who presented to the emergency department with worsening abdominal pain that radiated to his shoulder blades. Patient reportedly had not eaten in 3 days due to the pain. A few weeks ago patient had an ultrasound which showed a gallstone in the gallbladder neck. Patient underwent a laparoscopic cholecystectomy with Dr. Lucas yesterday and tolerated the procedure well. Nursing staff states patient is tolerating diet and they are working on getting him ambulating more. Patient may be discharged home today if cleared by general surgeon. Patient seen and evaluated by nurse practitioner, physician in agreement with plan. Patient Condition at Discharge: Fair Plan - Discharge Summary New Discharge Prescriptions: Continue PARoxetine HCL [Paxil] 40 mg PO DAILY HYDROcodone/APAP 10-325MG [[place] 10-325] 1 tab PO QID traZODone HCL [Desyrel] 100 mg PO HS ALPRAZolam [Xanax] 0.5 mg PO HS amLODIPine [Norvasc] 10 mg PO DAILY Tirzepatide [Mounjaro] 2.5 mg SQ SA@1200 Ibuprofen [Motrin] 800 mg PO TID Empagliflozin/Metformin HCl [Synjardy 5-1,000 mg Tablet] 1 tab PO BID Nebivolol [Bystolic] 5 mg PO DAILY Discharge Medication List PARoxetine HCL [Paxil] 40 mg PO DAILY 04/29/14 [History] HYDROcodone/APAP 10-325MG [[place] 10-325] 1 tab PO QID 08/24/16 [History] ALPRAZolam [Xanax] 0.5 mg PO HS 08/15/24 [History] Ibuprofen [Motrin] 800 mg PO TID 08/15/24 [History] traZODone HCL [Desyrel] 100 mg PO HS 08/15/24 [History] Empagliflozin/Metformin HCl [Synjardy 5-1,000 mg Tablet] 1 tab PO BID 02/07/25 [History] Nebivolol [Bystolic] 5 mg PO DAILY 02/07/25 [History] Tirzepatide [Mounjaro] 2.5 mg SQ SA@1200 02/07/25 [History] amLODIPine [Norvasc] 10 mg PO DAILY 02/07/25 [History] Follow up Appointment(s)/Referral(s): Perez Pennington MD [Primary Care Provider] - 1 Week Discharge Disposition: HOME SELF-CARE
--- NOTE | 2025-02-09 13:46 | P.PN ---
Subjective Progress Note Date: 02/09/25 SURGICAL PROGRESS NOTE CHIEF COMPLAINT: Cholecystitis HISTORY OF PRESENT ILLNESS: Patient is postop day #1 status post laparoscopic cholecystectomy. Patient does report abdominal pain at incision sites. Patient rates his pain about a 7 out of 10. He did have some nausea earlier. He was able to eat some of his breakfast. Denies any difficulty urinating. Denies any flatus. Afebrile. PHYSICAL EXAM: VITAL SIGNS: Reviewed. GENERAL: Well-developed in no acute distress. ABDOMEN: Soft. Nondistended. Tender at incision sites. Incision sites clean dry and intact. NEUROLOGIC: Alert and oriented. Cranial nerves II through XII grossly intact. ASSESSMENT: 1. Cholecystitis PLAN: - Recommend patient's stays 1 more day for pain management - Encourage patient to increase activity level - Patient can shower -Anticipate discharge tomorrow -DVT prophylaxis [employer] Physician Refrigerated Company Driver note has been reviewed by physician. Signing provider agrees with the documented findings, assessment, and plan of care. Objective - Vital Signs Vital signs: Vital Signs Temp 98.0 F 02/09/25 07:10 Pulse 88 02/09/25 07:10 Resp 18 02/09/25 07:10 BP 137/74 02/09/25 07:10 Pulse Ox 96 02/09/25 07:10 FiO2 Intake & Output 02/08/25 02/09/25 02/09/25 18:59 06:59 18:59 Intake Total 1500 240 Output Total 5 830 Balance 1495 -830 240 Intake: IV 1500 Oral 240 Output: Urine 830 Estimated Blood Loss 5 Other: Voiding Method Urinal Urinal # Voids 2 2 # Bowel Movements 0 - Labs CBC & Chem 7: 02/07/25 14:56 02/07/25 14:29 Labs: Abnormal Lab Results - Last 24 Hours (Table) 02/08/25 Range/Units 15:55 POC Glucose (mg/dL) 150 H (70-110) mg/dL
[2025-02-10] MEDS: HYDROcodone/APAP 10-325MG 1 EACH TAB PO PRN (03:23)
[2025-02-10 03:35] VITALS: RESP 16
[2025-02-10 08:20] VITALS: BP 116/71; PULSE 72; TEMP 98.1
--- NOTE | 2025-02-10 12:09 | P.PN ---
Subjective Progress Note Date: 02/10/25 SURGICAL PROGRESS NOTE CHIEF COMPLAINT: Cholecystitis HISTORY OF PRESENT ILLNESS: Patient is postop day #2 status post laparoscopic cholecystectomy. Patient complains of pain at incision sites. But does report the pain is less than yesterday. He is passing flatus. He is tolerating diet. He did have some belching. Denies any vomiting. Afebrile. He has ambulated. PHYSICAL EXAM: VITAL SIGNS: Reviewed. GENERAL: Well-developed in no acute distress. ABDOMEN: Soft. Nondistended. Tender at incision sites. Incision sites clean dry and intact. NEUROLOGIC: Alert and oriented. Cranial nerves II through XII grossly intact. ASSESSMENT: 1. Cholecystitis PLAN: -Patient can be discharged from surgical standpoint Physician Wallpaper Printer Helper note has been reviewed by physician. Signing provider agrees with the documented findings, assessment, and plan of care. Objective - Vital Signs Vital signs: Vital Signs Temp 98.1 F 02/10/25 08:13 Pulse 72 02/10/25 08:55 Resp 16 02/10/25 08:55 BP 116/71 02/10/25 08:13 Pulse Ox 95 02/10/25 08:13 FiO2 Intake & Output 02/09/25 02/10/25 02/10/25 18:59 06:59 18:59 Intake Total 740 222 Output Total 400 Balance 740 -400 222 Intake: Intake, IV Titration 20 Amount Sodium Chloride 0.9% 1, 20 000 ml @ 20 mls/hr IV . Q24H [facility] Rx#:[id number] Oral 720 222 Output: Urine 400 Other: Voiding Method Toilet Toilet Urinal # Voids 1 - Labs CBC & Chem 7: 02/07/25 14:56 02/07/25 14:29
[2025-02-11] MEDS ORDERED: NON FORMULARY DRUG (Tirzepatide [Mounjaro] 2.5 MG/0.5 ML Pen.Injctr) SQ SCH (12:00)
== END 2025-02-10 13:47 | disposition home or self-care (01) ==
LOC: EC 13:58 → 6NMEDSUR 18:38 → UNDODISOB 02-10 11:01
PROVIDERS: ADMIT Family Medicine; ATTEND Family Medicine
DX: K81.1 Chronic cholecystitis (principal); K82.8 Other specified diseases of gallbladder; I11.9 Hypertensive heart disease without heart failure; E11.9 Type 2 diabetes mellitus without complications; C90.00 Multiple myeloma not having achieved remission; E66.9 Obesity, unspecified; Z68.42 Body mass index [BMI] 45.0-49.9, adult; F32.A Depression, unspecified; R79.89 Other specified abnormal findings of blood chemistry; I25.2 Old myocardial infarction; Z79.891 Long term (current) use of opiate analgesic; Z79.1 Long term (current) use of non-steroidal anti-inflammatories (NSAID); Z79.84 Long term (current) use of oral hypoglycemic drugs; Z79.85 Long-term (current) use of injectable non-insulin antidiabetic drugs; Z79.899 Other long term (current) drug therapy; Z88.5 Allergy status to narcotic agent; Z88.8 Allergy status to other drugs, medicaments and biological substances; Z87.891 Personal history of nicotine dependence
CPT/HCPCS: 96376 ×2; 96372 ×2; 96361; 96374; 99285; 36415; 93005; 85379; 88304; 80053; 82150; 83605; 83690; 84484 ×2; 85025; 85610; 85730; 71046; 76705; 71275; 47562; G0378 ×4; J2543; J2250; J0330; J2270; J1644; J1100; J2710; J2405; J0690; J2003; J1650 ×2; J3010; J3490; J1885 ×3; J2704; Q9967; J1920; J1596

== ENCOUNTER 2025-03-31 14:24 | Inpatient (IN) | payer MEDICARE ==
--- NOTE | 2025-03-31 14:44 | ED ---
General Adult HPI - General Chief complaint: Weakness Stated complaint: weak Time Seen by Provider: 03/31/25 14:31 Source: patient, EMS, RN notes reviewed Mode of arrival: EMS Limitations: no limitations - History of Present Illness Initial comments: Patient is a 59-year-old male present to the emergency department with concerns with weakness. Symptoms have been occurring for the past few days. Patient has had diarrhea for a couple of weeks now, 3-4 times per day. Patient felt too weak to get out of his car today. Patient does have exertional dyspnea. Patient checked his heart rate when he was trying to walk recently and it went up to 150. - Related Data Home Medications Medication Instructions Recorded Confirmed PARoxetine HCL [Paxil] 40 mg PO QAM 04/29/14 03/30/25 HYDROcodone/APAP 10-325MG [[place] 1 tab PO QID 08/24/16 03/30/25 10-325] ALPRAZolam [Xanax] 0.5 mg PO HS 08/15/24 03/30/25 Ibuprofen [Motrin] 800 mg PO QID 08/15/24 03/30/25 traZODone HCL [Desyrel] 100 mg PO HS 08/15/24 03/30/25 Empagliflozin/Metformin HCl 1 tab PO BID 02/07/25 03/30/25 [Synjardy 5-1,000 mg Tablet] Nebivolol [Bystolic] 5 mg PO QAM 02/07/25 03/30/25 Tirzepatide [Mounjaro] 5 mg SQ WE 02/07/25 03/30/25 amLODIPine [Norvasc] 10 mg PO QAM 02/07/25 03/30/25 Losartan [Cozaar] 50 mg PO QAM 03/23/25 03/30/25 Omeprazole [PriLOSEC] 20 mg PO AC-BRKFST 03/23/25 03/30/25 Allergies Allergy/AdvReac Type Severity Reaction Status Date / Time lisinopril Allergy Rash/Hives Verified 03/31/25 14:38 hydromorphone HCl AdvReac Hallucinati Verified 03/31/25 14:38 [From Dilaudid] ons meperidine HCl [From Demerol] AdvReac Hallucinati Verified 03/31/25 14:38 ons Review of Systems ROS Statement: Those systems with pertinent positive or pertinent negative responses have been documented in the HPI. ROS Other: All systems not noted in ROS Statement are negative. Constitutional: Denies: fever Eyes: Denies: eye pain ENT: Denies: ear pain Respiratory: Reports: as per HPI Endocrine: Reports: fatigue Musculoskeletal: Denies: back pain Neurological: Reports: as per HPI, weakness Past Medical History Past Medical History: Cancer, Chest Pain / Angina, COPD, CVA/TIA, Diabetes Mellitus, GERD/Reflux, Hearing Disorder / Deafness, Hypertension, Myocardial Infarction (UT), Osteoarthritis (OA) Additional Past Medical History / Comment(s): Pt reports diarrhea r/t mounjaro shot & loss of appetite. hx gout, chronic back, hip, & knee pain. multiple [id number] cell transplant. [id number] walk-resolved. SOB with activity. wears hearing aids. Last Myocardial Infarction Date:: 02/04/21 History of Any Multi-Drug Resistant Organisms: None Reported Past Surgical History: Bariatric Surgery, Heart Catheterization, Joint Replacement, Orthopedic Surgery Additional Past Surgical History / Comment(s): thymus gland removal, HIP LT SURGERY replacement., lap band by romelt Past Anesthesia/Blood Transfusion Reactions: No Reported Reaction Past Psychological History: Depression Smoking Status: Former smoker - Past Family History Brother(s) Family Medical History: Coronary Artery Disease (CAD) Additional Family Medical History / Comment(s): pt states brother had hx blood clot- unsure DVT or PE. General Exam Limitations: no limitations General appearance: alert, in no apparent distress Head exam: Present: normocephalic Eye exam: Present: normal appearance ENT exam: Present: normal oropharynx Neck exam: Present: normal inspection Respiratory exam: Present: normal lung sounds bilaterally Cardiovascular Exam: Present: regular rate, normal rhythm GI/Abdominal exam: Present: soft. Absent: distended, tenderness Extremities exam: Present: normal inspection. Absent: pedal edema, calf tenderness Neurological exam: Present: alert. Absent: motor sensory deficit Psychiatric exam: Present: normal affect, normal mood Skin exam: Present: normal color Course Vital Signs 03/31/25 14:32 Temperature 98.2 F Pulse Rate 91 Respiratory 18 Rate Blood Pressure 104/68 O2 Sat by Pulse 98 Oximetry EKG Findings - EKG Results: EKG: interpreted by ERMD (Left axis. Nonspecific ST-T), sinus rhythm, normal QRS Medical Decision Making - Medical Decision Making Was pt. sent in by a medical professional or institution (, [facility], [facility], urgent care, hospital, or prison...) When possible be specific @ -Patient was sent by Dr. Pennington's office Did you speak to anyone other than the patient for history (EMS, parent, family, police, friend...)? What history was obtained from this source @ -No Did you review nursing and triage notes (agree or disagree)? Why? @ -I reviewed and agree with nursing and triage notes Were old charts reviewed (outside hosp., previous admission, EMS record, old EKG, old radiological studies, urgent care reports/EKG's, prison records)? Report findings @ -No old charts were reviewed Differential Diagnosis (chest pain, altered mental status, abdominal pain women, abdominal pain men, vaginal bleeding, weakness, fever, dyspnea, syncope, headache, dizziness, GI bleed, back pain, seizure, CVA, palpatations, mental health, musculoskeletal)? @ -Differential Weakness: Hypoglycemia, shock, sepsis, hyponatremia, anemia, infection, [place], ETOH, adverse medicine reaction, overdose, stroke, this is not meant to be an all-inclusive list. EKG interpreted by me (3pts min.). @ -As above X-rays interpreted by me (1pt min.). @ -Chest x-ray shows no acute process CT interpreted by me (1pt min.). @ -None done U/S interpreted by me (1pt. min.). @ -None done What testing was considered but not performed or refused? (CT, X-rays, U/S, labs)? Why? @ -None What meds were considered but not given or refused? Why? @ -None Did you discuss the management of the patient with other professionals (professionals i.e. , [facility], [facility], lab, RT, psych nurse, elementary school social worker, field software engineer, teacher, special officer automat, rehabilitation case coordinator)? Give summary @ -Case was discussed with practitioner Antonia Townsend who will admit covering Dr. Pennington Was smoking cessation discussed for >3mins.? @ -No Was critical care preformed (if so, how long)? @ -No Were there social determinants of health that impacted care today? How? (Homelessness, low income, unemployed, alcoholism, drug addiction, transportation, low edu. Level, literacy, decrease access to med. care, senior living, rehab)? @ -No Was there de-escalation of care discussed even if they declined (Discuss DNR or withdrawal of care, Hospice)? DNR status @ -No What co-morbidities impacted this encounter? (DM, HTN, Smoking, COPD, CAD, Cancer, CVA, ARF, Chemo, Hep., AIDS, mental health diagnosis, sleep apnea, morbid obesity)? @ -None Was patient admitted / discharged? Hospital course, mention meds given and route, prescriptions, significant lab abnormalities, going to OR and other pertinent info. @ -Patient presents with diarrhea and generalized weakness. Patient is dehydrated and has hypomagnesemia. Patient will be admitted. Patient reevaluated and updated Undiagnosed new problem with uncertain prognosis? @ -No Drug Therapy requiring intensive monitoring for toxicity (Heparin, Nitro, Insulin, Cardizem)? @ -No Were any procedures done? @ -No Diagnosis/symptom? @ -Dehydration, hypomagnesemia Acute, or Chronic, or Acute on Chronic? @ -Acute, acute Uncomplicated (without systemic symptoms) or Complicated (systemic symptoms)? @ -Default Side effects of treatment? @ -No Exacerbation, Progression, or Severe Exacerbation? @ -No Poses a threat to life or bodily function? How? (Chest pain, [place], UT, pneumonia, PE, COPD, DKA, ARF, appy, cholecystitis, CVA, Diverticulitis, Homicidal, Suicidal, threat to staff... and all critical care pts) @ -Threat to metabolic function - Lab Data Result diagrams: 03/31/25 15:08 03/31/25 15:08 Lab Results 03/31/25 03/31/25 03/31/25 Range/Units 15:08 15:08 15:08 WBC 7.23 (4.50-10.00) 10*3/uL RBC 4.23 L (4.40-5.60) 10*6/uL Hgb 11.1 L (13.0-17.0) g/dL Hct 33.4 L (39.6-50.0) % MCV 79.0 L (80.0-97.0) fL MCH 26.2 L (27.0-32.0) pg MCHC 33.2 (32.0-37.0) g/dL Plt Count 112 L (140-440) 10*3/uL MPV 10.1 (9.5-12.2) fL Immature Gran % (Auto) 0.3 % Neutrophils % 66.5 % Lymphocytes % 25.6 % Monocytes % 4.7 % Eosinophils % 2.2 % Basophils % 0.7 % Immature Gran # 0.02 (0.00-0.04) 10*3/uL Neutrophils # 4.81 (1.80-7.70) 10*3/uL Lymphocytes # 1.85 (0.90-5.00) 10*3/uL Monocytes # 0.34 (0.20-1.00) 10*3/uL Eosinophils # 0.16 (0.04-0.35) 10*3/uL Basophils # 0.05 (0.00-0.10) 10*3/uL PT 12.4 (10.0-12.5) sec INR 1.1 (<1.2) APTT 26.7 (22.0-30.0) sec Sodium 138 (137-145) mmol/L Potassium 4.0 (3.5-5.1) mmol/L Chloride 109 H (98-107) mmol/L Carbon Dioxide 11 L (22-30) mmol/L Anion Gap 18 mmol/L BUN 27 H (9-20) mg/dL Creatinine 1.48 H (0.66-1.25) mg/dL Est GFR (CKD-EPI)AfAm 58 (>60 ml/min/1.73 sqM) Est GFR (CKD-EPI)NonAf 51 (>60 ml/min/1.73 sqM) Glucose 83 (74-99) mg/dL Plasma Lactic Acid Heladio (0.7-2.0) mmol/L Calcium 8.3 L (8.4-10.2) mg/dL Magnesium 0.9 L* (1.6-2.3) mg/dL Total Bilirubin 0.6 (0.2-1.3) mg/dL AST 24 (17-59) U/L ALT 25 (4-49) U/L Alkaline Phosphatase 96 (38-126) U/L Troponin I (0.000-0.034) ng/mL Total Protein 6.9 (6.3-8.2) g/dL Albumin 4.1 (3.5-5.0) g/dL 03/31/25 03/31/25 Range/Units 15:08 15:08 WBC (4.50-10.00) 10*3/uL RBC (4.40-5.60) 10*6/uL Hgb (13.0-17.0) g/dL Hct (39.6-50.0) % MCV (80.0-97.0) fL MCH (27.0-32.0) pg MCHC (32.0-37.0) g/dL Plt Count (140-440) 10*3/uL MPV (9.5-12.2) fL Immature Gran % (Auto) % Neutrophils % % Lymphocytes % % Monocytes % % Eosinophils % % Basophils % % Immature Gran # (0.00-0.04) 10*3/uL Neutrophils # (1.80-7.70) 10*3/uL Lymphocytes # (0.90-5.00) 10*3/uL Monocytes # (0.20-1.00) 10*3/uL Eosinophils # (0.04-0.35) 10*3/uL Basophils # (0.00-0.10) 10*3/uL PT (10.0-12.5) sec INR (<1.2) APTT (22.0-30.0) sec Sodium (137-145) mmol/L Potassium (3.5-5.1) mmol/L Chloride (98-107) mmol/L Carbon Dioxide (22-30) mmol/L Anion Gap mmol/L BUN (9-20) mg/dL Creatinine (0.66-1.25) mg/dL Est GFR (CKD-EPI)AfAm (>60 ml/min/1.73 sqM) Est GFR (CKD-EPI)NonAf (>60 ml/min/1.73 sqM) Glucose (74-99) mg/dL Plasma Lactic Acid Heladio 0.7 (0.7-2.0) mmol/L Calcium (8.4-10.2) mg/dL Magnesium (1.6-2.3) mg/dL Total Bilirubin (0.2-1.3) mg/dL AST (17-59) U/L ALT (4-49) U/L Alkaline Phosphatase (38-126) U/L Troponin I <0.012 (0.000-0.034) ng/mL Total Protein (6.3-8.2) g/dL Albumin (3.5-5.0) g/dL Disposition Clinical Impression: Dehydration Disposition: ADMITTED IP TO THIS HOSP Is patient prescribed a controlled substance at d/c from ED?: No Referrals: Perez Pennington MD [Primary Care Provider] - 1-2 days Time of Disposition: 16:49
[2025-03-31] MEDS: SODIUM CHLORIDE 0.9% 1,000 ML IV SCH (15:14)
[2025-03-31 15:19] LABS: Basophils # (A) 0.05 10*3/uL (0.00-0.10); Basophils % (A) 0.7 %; Eosinophils # (A) 0.16 10*3/uL (0.04-0.35); Eosinophils % (A) 2.2 %; HCT 33.4 % (39.6-50.0); HGB 11.1 g/dL (13.0-17.0); Lymphocytes # (A) 1.85 10*3/uL (0.90-5.00); Lymphocytes % (A) 25.6 %; MCH 26.2 pg (27.0-32.0); MCHC 33.2 g/dL (32.0-37.0); Mean Platelet Volume 10.1 fL (9.5-12.2); Monocytes # (A) 0.34 10*3/uL (0.20-1.00); Monocytes % (A) 4.7 %; Neutrophils # (A) 4.81 10*3/uL (1.80-7.70); Neutrophils % (A) 66.5 %; Platelet Count 112 10*3/uL (140-440); RBC 4.23 10*6/uL (4.40-5.60); RDW 14.7 % (11.5-14.5); WBC 7.23 10*3/uL (4.50-10.00)
[2025-03-31 15:32] LABS: INR 1.1 (<1.2); Partial Thromboplastin Time 26.7 sec (22.0-30.0); Prothrombin Time 12.4 sec (10.0-12.5)
[2025-03-31 15:36] LABS: ALT 25 U/L (4-49); AST 24 U/L (17-59); African American GFR (CKD) 58 (>60 ml/min/1.73 sqM); Albumin 4.1 g/dL (3.5-5.0); Alkaline Phosphatase 96 U/L (38-126); Anion Gap 18 mmol/L; Blood Urea Nitrogen 27 mg/dL (9-20); Calcium 8.3 mg/dL (8.4-10.2); Carbon Dioxide 11 mmol/L (22-30); Chloride 109 mmol/L (98-107); Glucose 83 mg/dL (74-99); Non-African American GFR(CKD) 51 (>60 ml/min/1.73 sqM); Sodium 138 mmol/L (137-145); Total Bilirubin 0.6 mg/dL (0.2-1.3); Total Protein 6.9 g/dL (6.3-8.2)
[2025-03-31 15:56] LABS: Magnesium 0.9 mg/dL (1.6-2.3)
[2025-03-31] MEDS: MAGNESIUM OXIDE 400 MG TAB PO SCH (16:18)
--- NOTE | 2025-03-31 16:18 | XR ---
EXAMINATION TYPE: XR chest 2V DATE OF EXAM: 03/31/2025 4:15 PM COMPARISON: 02/07/2025 CLINICAL INDICATION: Male, 59 years old with history of Weakness, , TECHNIQUE: PA and lateral views FINDINGS: Heart normal size. Median sternotomy wires are present. Some strandy atelectasis at the left lower mckinley ng. No consolidation or pleural effusion. IMPRESSION: No acute cardiopulmonary process. [facility], , 03/31/2025 4:15 PM
[2025-03-31] MEDS: MAGNESIUM SULFATE-D5W PMX 1 GM in DEXTROSE/WATER 1 100ML.BAG IVPB SCH (16:19)
[2025-03-31] MEDS ORDERED: NALOXONE 0.4 MG/ML 1 ML VIAL IV PRN (16:50)
[2025-03-31] MEDS ORDERED: DEXTROSE 50% SYRINGE 50 ML IVP PRN ×2 (20:37)
[2025-03-31 21:56] LABS: Glucose,Whole Blood 91 mg/dL (70-110)
[2025-03-31] MEDS: HYDROcodone/APAP 10-325MG 1 EACH TAB PO PRN (22:16)
[2025-03-31] MEDS: FAMOTIDINE 20 MG TAB PO SCH (22:18)
[2025-03-31] MEDS: traZODone HCL 100 MG TAB PO SCH (22:19)
[2025-03-31] MEDS: IBUPROFEN 800 MG TAB PO SCH (22:19)
[2025-03-31] MEDS: INSULIN LISPRO (HumaLOG) 100 UNIT/ML 10 mL VL SQ SCH (22:20)
[2025-03-31] MEDS: ALPRAZolam 0.5 MG TAB PO SCH (22:20)
[2025-04-01 07:29] LABS: Glucose,Whole Blood 90 mg/dL (70-110)
[2025-04-01] MEDS: LOSARTAN 50 MG TAB PO SCH (09:25)
[2025-04-01] MEDS: PARoxetine 20 MG TAB PO SCH (09:26)
[2025-04-01] MEDS: amLODIPine 10 MG TAB PO SCH (09:26)
[2025-04-01 10:38] VITALS: BMI 41.7
[2025-04-01 11:07] LABS: ALT 22 U/L (10-49); AST 17 U/L (14-35); Albumin 3.8 g/dL (3.8-4.9); Albumin/Globulin Ratio 1.58 Ratio (1.60-3.17); Alkaline Phosphatase 109 U/L (41-126); BUN/Creat Ratio 18.43 Ratio (12.00-20.00); Blood Urea Nitrogen 25.8 mg/dL (9.0-27.0); Carbon Dioxide 15.2 mmol/L (21.6-31.8); Chloride 109 mmol/L (96-109); Globulin 2.4 g/dL (1.6-3.3); Glucose 90 mg/dL (70-110); Magnesium 1.6 mg/dL (1.5-2.4); Sodium 139 mmol/L (135-145); Total Bilirubin 0.2 mg/dL (0.3-1.2); Total Protein 6.2 g/dL (6.2-8.2)
[2025-04-01 12:34] LABS: Glucose,Whole Blood 124 mg/dL (70-110)
[2025-04-01] MEDS: PANTOPRAZOLE 40 MG/10 ML VIAL IVP SCH (13:04)
--- NOTE | 2025-04-01 13:56 | P.HPIM ---
History of Present Illness H&P Date: 04/01/25 History of present illness; patient is a 59-year-old gentleman past medical history significant for hypertension, diabetes mellitus who presented to the hospital for weakness. Patient was recently admitted in January of this year for abdominal pain at which time patient underwent laparoscopic cholecystectomy. Patient stated that he has been having diarrhea for the last couple of weeks, bowel movements ranged from 3-4 times a day. There is no complaint of blood in the stool. Patient denies any fever or chills. There is no complaint of chest pain. Patient is complaining of shortness of breath on exertion. There is no complaint of orthopnea or PND. Patient is complaining of palpitations at times. Because of the symptoms, patient came to the ER Initial lab work done in the ER showed 7.23, hemoglobin 9.1, platelet count 112, sodium 138, potassium 4, chloride 109, carbon send 11, anion gap 18, creatinine 1.48 calcium 8.3, magnesium 0.9 troponin 0.012 EKG done in the ER showed heart rate of 85 , no ST segment elevation or depression seen, no T-wave inversions seen. Chest x-ray done in the ER showed no acute cardiopulmonary process Patient admitted to internal medicine service REVIEW OF SYSTEMS: CONSTITUTIONAL: No fever, no malaise, no fatigue. HEENT: No recent visual problems or hearing problems. Denied any sore throat. CARDIOVASCULAR: As mentioned above. PULMONARY: No shortness of breath, no cough, no hemoptysis. GASTROINTESTINAL: As mentioned above NEUROLOGICAL: No headaches, no weakness, no numbness. HEMATOLOGICAL: Denies any bleeding or petechiae. GENITOURINARY: Denies any burning micturition, frequency, or urgency. MUSCULOSKELETAL/RHEUMATOLOGICAL: Denies any joint pain, swelling, or any muscle pain. ENDOCRINE: Denies any polyuria or polydipsia. The rest of the 14-point review of systems is negative. PHYSICAL EXAMINATION: GENERAL: The patient is alert and oriented x3, not in any acute distress. Well developed, well nourished. HEENT: Pupils are round and equally reacting to light. EOMI. No scleral icterus. No conjunctival pallor. Normocephalic, atraumatic. No pharyngeal erythema. No thyromegaly. CARDIOVASCULAR: S1 and S2 present. No murmurs, rubs, or gallops. PULMONARY: Chest is clear to auscultation, no wheezing or crackles. ABDOMEN: Soft, nontender, nondistended, normoactive bowel sounds. No palpable organomegaly. MUSCULOSKELETAL: No joint swelling or deformity. EXTREMITIES: No cyanosis, clubbing, or pedal edema. NEUROLOGICAL: Gross neurological examination did not reveal any focal deficits. SKIN: No rashes. Assessment and plan Generalized weakness Postcholecystectomy diarrhea syndrome Hypomagnesemia Hypocalcemia Acute kidney injury Metabolic acidosis History of hypertension Diabetes mellitus Monitor vital signs Monitor CBC Monitor CMP Ordered IV fluids Ordered antiemetics Start cholestyramine Continue magnesium oxide Start IV Protonix Continue Lipitor Continue losartan Resume home meds Labs and medication were reviewed.. Continue same treatment. Continue with symptomatic treatment. Resume home medication. Monitor labs and vitals. DVT and GI prophylaxis. Further recommendations as per clinical course of the patient Dictation was produced using [employer] dictation software. please excuse any grammatical, word or spelling errors. Past Medical History Past Medical History: Cancer, Chest Pain / Angina, COPD, CVA/TIA, Diabetes Mellitus, GERD/Reflux, Hearing Disorder / Deafness, Hypertension, Myocardial Infarction ([place]), Osteoarthritis (OA) Additional Past Medical History / Comment(s): Pt reports diarrhea r/t mounjaro shot & loss of appetite. hx gout, chronic back, hip, & knee pain. multiple [id number]-[id number]-[id number] cell transplant. [id number] walk-resolved. SOB with activity. wears hearing aids. Last Myocardial Infarction Date:: 02/04/21 History of Any Multi-Drug Resistant Organisms: None Reported Past Surgical History: Bariatric Surgery, Cholecystectomy, Heart Catheterization, Joint Replacement, Orthopedic Surgery Additional Past Surgical History / Comment(s): thymus gland removal, HIP LT SURGERY replacement., lap band by romelt Past Anesthesia/Blood Transfusion Reactions: No Reported Reaction Past Psychological History: Depression Smoking Status: Former smoker Past Alcohol Use History: None Reported Additional Past Alcohol Use History / Comment(s): started smoking smoking at age [age] years old, 1ppd, quit in 2019 Past Drug Use History: None Reported - Past Family History Brother(s) Family Medical History: Coronary Artery Disease (CAD) Additional Family Medical History / Comment(s): pt states brother had hx blood clot- unsure DVT or PE. Medications and Allergies Home Medications Medication Instructions Recorded Confirmed Type PARoxetine HCL [Paxil] 40 mg PO DAILY 04/29/14 03/31/25 History HYDROcodone/APAP 10-325MG [[place] 1 tab PO QID 08/24/16 03/31/25 History 10-325] ALPRAZolam [Xanax] 0.5 mg PO HS 08/15/24 03/31/25 History Ibuprofen [Motrin] 800 mg PO TID 08/15/24 03/31/25 History traZODone HCL [Desyrel] 100 mg PO HS 08/15/24 03/31/25 History Empagliflozin/Metformin HCl 1 tab PO BID 02/07/25 03/31/25 History [Synjardy 5-1,000 mg Tablet] Nebivolol [Bystolic] 5 mg PO DAILY 02/07/25 03/31/25 History amLODIPine [Norvasc] 10 mg PO DAILY 02/07/25 03/31/25 History Losartan [Cozaar] 50 mg PO DAILY 03/23/25 03/31/25 History Omeprazole [PriLOSEC] 20 mg PO DAILY 03/23/25 03/31/25 History Tirzepatide [Mounjaro] 5 mg SQ SA 03/31/25 03/31/25 History Allergies Allergy/AdvReac Type Severity Reaction Status Date / Time lisinopril Allergy Rash/Hives Verified 03/31/25 17:36 hydromorphone HCl AdvReac Hallucinati Verified 03/31/25 17:36 [From Dilaudid] ons meperidine HCl [From Demerol] AdvReac Hallucinati Verified 03/31/25 17:36 ons Physical Exam Vitals: Vital Signs Temp Pulse Pulse Resp BP BP Pulse Ox 04/01/25 09:03 98 04/01/25 07:47 98.6 F 77 18 115/68 97 04/01/25 01:23 98.6 F 82 16 106/67 97 03/31/25 18:48 98.5 F 75 17 127/78 100 03/31/25 18:01 87 18 106/76 96 03/31/25 14:32 98.2 F 91 18 104/68 98 Intake and Output 03/31/25 04/01/25 04/01/25 22:59 06:59 14:59 Intake Total 590 Balance 590 Intake: Oral 590 Other: # Voids 2 Weight 131.995 kg 131.995 kg Results CBC & Chem 7: 03/31/25 15:08 04/01/25 04:36 Labs: Abnormal Lab Results - Last 24 Hours (Table) 03/31/25 03/31/25 04/01/25 Range/Units 15:08 15:08 04:36 RBC 4.23 L (4.40-5.60) 10*6/uL Hgb 11.1 L (13.0-17.0) g/dL Hct 33.4 L (39.6-50.0) % MCV 79.0 L (80.0-97.0) fL MCH 26.2 L (27.0-32.0) pg Plt Count 112 L (140-440) 10*3/uL Chloride 109 H (98-107) mmol/L Carbon Dioxide 11 L 15.2 L (22-30) mmol/L Anion Gap 14.80 H (4.00-12.00) mmol/L BUN 27 H (9-20) mg/dL Creatinine 1.48 H (0.66-1.25) mg/dL Est GFR (CKD-EPI) 57 L (>=60) Calcium 8.3 L 8.0 L (8.4-10.2) mg/dL Magnesium 0.9 L* (1.6-2.3) mg/dL Total Bilirubin 0.2 L (0.3-1.2) mg/dL Albumin/Globulin Ratio 1.58 L (1.60-3.17) Ratio Thrombosis Risk Factor Assmnt - Choose All That Apply Any of the Below Risk Factors Present?: Yes Each Factor Represents 1 point: Abnormal pulmonary function (COPD), Obesity (BMI >25) Other Risk Factors: Yes Each Risk Factor Represents 2 Points: Age 61-74 years, Malignancy Thrombosis Risk Factor Assessment Total Risk Factor Score: 6 Thrombosis Risk Factor Assessment Level: High Risk
--- NOTE | 2025-04-01 14:44 | XR ---
EXAMINATION TYPE: XR Hip Bilateral and AP pelvis DATE OF EXAM: 04/01/2025 2:35 PM COMPARISON: Previous radiograph 09/14/2014. CLINICAL INDICATION: Male, 59 years old with history of Fall, pain in the pelvic area; PHH, pain TECHNIQUE: XR Hip Bilateral and AP pelvis; hip was examined in the frontal and lateral projections an d a AP pelvis. FINDINGS: No acute fracture or dislocation. Similar morphology of the right femoral head. Moderate to severe right hip degenerative arthritis. Left hip arthroplasty without significant periprosthetic lo osening. Pelvic bones are grossly intact. IMPRESSION: No osseous abnormality. [facility], , 04/01/2025 2:42 PM
[2025-04-01] MEDS: CHOLESTYRAMINE (WITH SUGAR) 4 GM PACKET PO SCH (15:01)
--- NOTE | 2025-04-01 16:36 | CT ---
EXAMINATION TYPE: CT chest angio for PE DATE OF EXAM: 04/01/2025 3:59 PM COMPARISON: Previous CT chest study dated 02/07/2035. CLINICAL INDICATION: Male, 59 years old with history of Elevated D-dimer; elevated dimer TECHNIQUE/CONTRAST: CTA scan of the thorax is performed with IV Contrast, patient injected with 70cc mL of Isovue 370, AK P images are created and reviewed these are created on a separate workstation.. CT DLP: 551.7 mGycm, Automated exposure control for dose reduction was used. FINDINGS: Pulmonary Artery: There is no evidence for a filling defect within the pulmonary vasculature to sugge st acute pulmonary embolism. The pulmonary artery is of normal size. Stable subcentimeter pulmonary nodules. No new suspicious or enlarging pulmonary nodule identified. Mildly dilated main pulmonary a rtery. Suboptimal timing of contrast bolus limits evaluation of distal segmental and subsegmental pul monary branches. Lungs/Pleura: No evidence of focal consolidation, pleural effusion or pneumothorax. Airway: Large airways are patent. Heart: Heart is within normal limits for size. Coronary artery calcifications. Vasculature: No evidence of aortic aneurysm. Mediastinum: No gross evidence of adenopathy. Musculoskeletal: No acute osseous abnormalities. Median sternotomy wires. Multilevel thoracic spine d egenerative changes. Soft Tissues/lymph nodes: Unremarkable. Lower neck: No significant findings. Upper Abdomen: No significant acute findings. Cholelithiasis. Gastric lap band in place. IMPRESSION: No evidence of central or segmental acute pulmonary embolism or acute pulmonary pathology. [facility], , 04/01/2025 4:34 PM
[2025-04-01 17:17] LABS: Glucose,Whole Blood 109 mg/dL (70-110)
[2025-04-01 20:20] LABS: Glucose,Whole Blood 94 mg/dL (70-110)
[2025-04-02 07:46] LABS: Glucose,Whole Blood 94 mg/dL (70-110)
[2025-04-02] MEDS: PANTOPRAZOLE 40 MG TABLET PO SCH (08:55)
[2025-04-02 09:30] LABS: Basophils # (A) 0.02 X 10*3/uL (0.00-0.10); Basophils % (A) 0.3 %; Eosinophils # (A) 0.18 X 10*3/uL (0.04-0.35); Eosinophils % (A) 3.1 %; HCT 28.9 % (39.6-50.0); HGB 9.1 g/dL (13.0-17.0); Lymphocytes # (A) 1.54 X 10*3/uL (0.90-5.00); Lymphocytes % (A) 26.3 %; MCH 25.6 pg (27.0-32.0); MCHC 31.5 g/dL (32.0-37.0); MCV 81.2 FL (80.0-97.0); Mean Platelet Volume 11.2 FL (9.5-12.2); Monocytes # (A) 0.29 X 10*3/uL (0.20-1.00); NRBC Per 100 WBC 0 X 10*3/uL (0.00-0.01); Platelet Count 110 X 10*3/uL (140-440); RBC 3.56 X 10*6/uL (4.40-5.60); RDW 15.1 % (11.5-14.5); WBC 5.85 X 10*3/uL (4.50-10.00)
--- NOTE | 2025-04-02 09:51 | P.GSCN ---
History of Present Illness Consult date: 04/02/25 Reason for Consult: Diarrhea History of present illness: Is a 59-year-old male whose had complaints of diarrhea for last 6 weeks. Patient was admitted to the hospital with dehydration due to his diarrhea. Past Medical History Past Medical History: Cancer, Chest Pain / Angina, COPD, CVA/TIA, Diabetes M ellitus, GERD/Reflux, Hearing Disorder / Deafness, Hypertension, Myocardial Infarction ([place]), Osteoarthritis (OA) Additional Past Medical History / Comment(s): Pt reports diarrhea r/t mounjaro shot & loss of appetite. hx gout, chronic back, hip, & knee pain. multiple [id number]-xsez cell transplant. [id number] walk-resolved. SOB with activity. wears hearing aids. Last Myocardial Infarction Date:: 02/04/21 History of Any Multi-Drug Resistant Organisms: None Reported Past Surgical History: Bariatric Surgery, Cholecystectomy, Heart Catheterization, Joint Replacement, Orthopedic Surgery Additional Past Surgical History / Comment(s): thymus gland removal, HIP LT S URGERY replacement., lap band by romelt Past Anesthesia/Blood Transfusion Reactions: No Reported Reaction Past Psychological History: Depression Smoking Status: Former smoker Past Alcohol Use History: None Reported Additional Past Alcohol Use History / Comment(s): started smoking smoking at age [age] years old, 1ppd, quit in 2019 Past Drug Use History: None Reported - Past Family History Brother(s) Family Medical History: Coronary Artery Disease (CAD) Additional Family Medical History / Comment(s): pt states brother had hx blood clot- unsure DVT or PE. Medications and Allergies Home Medications Medication Instructions Recorded Confirmed Type PARoxetine HCL [Paxil] 40 mg PO DAILY 04/29/14 03/31/25 History HYDROcodone/APAP 10-325MG [[place] 1 tab PO QID 08/24/16 03/31/25 History 10-325] ALPRAZolam [Xanax] 0.5 mg PO HS 08/15/24 03/31/25 History Ibuprofen [Motrin] 800 mg PO TID 08/15/24 03/31/25 History traZODone HCL [Desyrel] 100 mg PO HS 08/15/24 03/31/25 History Empagliflozin/Metformin HCl 1 tab PO BID 02/07/25 03/31/25 History [Synjardy 5-1,000 mg Tablet] Nebivolol [Bystolic] 5 mg PO DAILY 02/07/25 03/31/25 History amLODIPine [Norvasc] 10 mg PO DAILY 02/07/25 03/31/25 History Losartan [Cozaar] 50 mg PO DAILY 03/23/25 03/31/25 History Omeprazole [PriLOSEC] 20 mg PO DAILY 03/23/25 03/31/25 History Tirzepatide [Mounjaro] 5 mg SQ SA 03/31/25 03/31/25 History Allergies Allergy/AdvReac Type Severity Reaction Status Date / Time lisinopril Allergy Rash/Hives Verified 03/31/25 17:36 hydromorphone HCl AdvReac Hallucinati Verified 03/31/25 17:36 [From Dilaudid] ons meperidine HCl [From Demerol] AdvReac Hallucinati Verified 03/31/25 17:36 ons Surgical - Exam Vital Signs Temp Pulse Resp BP Pulse Ox 98.2 F 91 18 104/68 98 03/31/25 14:32 03/31/25 14:32 03/31/25 14:32 03/31/25 14:32 03/31/25 14:32 - General well developed, no distress - Eyes PERRL - ENT normal pinna - Neck no masses - Respiratory normal expansion - Cardiovascular Rhythm: regular - Abdomen Abdomen: soft, non tender Results - Labs 04/02/25 04:02 04/01/25 04:36 Abnormal Lab Results - Last 24 Hours (Table) 04/01/25 04/01/25 04/01/25 Range/Units 04:36 12:18 13:17 RBC (4.40-5.60) X 10*6/uL Hgb (13.0-17.0) g/dL Hct (39.6-50.0) % MCH (27.0-32.0) pg MCHC (32.0-37.0) g/dL RDW (11.5-14.5) % Plt Count (140-440) X 10*3/uL D-Dimer 1.31 H (<0.60) mg/L FEU Carbon Dioxide 15.2 L (21.6-31.8) mmol/L Anion Gap 14.80 H (4.00-12.00) mmol/L Est GFR (CKD-EPI) 57 L (>=60) POC Glucose (mg/dL) 124 H (70-110) mg/dL Calcium 8.0 L (8.7-10.3) mg/dL Total Bilirubin 0.2 L (0.3-1.2) mg/dL Albumin/Globulin Ratio 1.58 L (1.60-3.17) Ratio 04/02/25 Range/Units 04:02 RBC 3.56 L (4.40-5.60) X 10*6/uL Hgb 9.1 L (13.0-17.0) g/dL Hct 28.9 L (39.6-50.0) % MCH 25.6 L (27.0-32.0) pg MCHC 31.5 L (32.0-37.0) g/dL RDW 15.1 H (11.5-14.5) % Plt Count 110 L (140-440) X 10*3/uL D-Dimer (<0.60) mg/L FEU Carbon Dioxide (21.6-31.8) mmol/L Anion Gap (4.00-12.00) mmol/L Est GFR (CKD-EPI) (>=60) POC Glucose (mg/dL) (70-110) mg/dL Calcium (8.7-10.3) mg/dL Total Bilirubin (0.3-1.2) mg/dL Albumin/Globulin Ratio (1.60-3.17) Ratio Diabetes panel 04/01/25 04/01/25 Range/Units 04:36 04:36 Sodium 139 (135-145) mmol/L Potassium 4.0 (3.5-5.5) mmol/L Chloride 109 (96-109) mmol/L Carbon Dioxide 15.2 L (21.6-31.8) mmol/L BUN 25.8 (9.0-27.0) mg/dL Creatinine 1.4 (0.6-1.5) mg/dL Glucose 90 (70-110) mg/dL Hemoglobin A1c 5.7 (<=6.0) % Calcium 8.0 L (8.7-10.3) mg/dL AST 17 (14-35) U/L ALT 22 (10-49) U/L Alkaline Phosphatase 109 (41-126) U/L Total Protein 6.2 (6.2-8.2) g/dL Albumin 3.8 (3.8-4.9) g/dL Calcium panel 04/01/25 Range/Units 04:36 Calcium 8.0 L (8.7-10.3) mg/dL Albumin 3.8 (3.8-4.9) g/dL Pituitary panel 04/01/25 Range/Units 04:36 Sodium 139 (135-145) mmol/L Potassium 4.0 (3.5-5.5) mmol/L Chloride 109 (96-109) mmol/L Carbon Dioxide 15.2 L (21.6-31.8) mmol/L BUN 25.8 (9.0-27.0) mg/dL Creatinine 1.4 (0.6-1.5) mg/dL Glucose 90 (70-110) mg/dL Calcium 8.0 L (8.7-10.3) mg/dL Adrenal panel 04/01/25 Range/Units 04:36 Sodium 139 (135-145) mmol/L Potassium 4.0 (3.5-5.5) mmol/L Chloride 109 (96-109) mmol/L Carbon Dioxide 15.2 L (21.6-31.8) mmol/L BUN 25.8 (9.0-27.0) mg/dL Creatinine 1.4 (0.6-1.5) mg/dL Glucose 90 (70-110) mg/dL Calcium 8.0 L (8.7-10.3) mg/dL Total Bilirubin 0.2 L (0.3-1.2) mg/dL AST 17 (14-35) U/L ALT 22 (10-49) U/L Alkaline Phosphatase 109 (41-126) U/L Total Protein 6.2 (6.2-8.2) g/dL Albumin 3.8 (3.8-4.9) g/dL Assessment and Plan Assessment: Diarrhea. Patient undergo colonoscopy in the a.m.
[2025-04-02 09:54] LABS: ALT 19 U/L (10-49); AST 16 U/L (14-35); Albumin 3.5 g/dL (3.8-4.9); Albumin/Globulin Ratio 1.67 Ratio (1.60-3.17); Alkaline Phosphatase 103 U/L (41-126); BUN/Creat Ratio 16.18 Ratio (12.00-20.00); Blood Urea Nitrogen 17.8 mg/dL (9.0-27.0); Calcium 7.9 mg/dL (8.7-10.3); Carbon Dioxide 16.2 mmol/L (21.6-31.8); Chloride 114 mmol/L (96-109); Globulin 2.1 g/dL (1.6-3.3); Glucose 97 mg/dL (70-110); Sodium 139 mmol/L (135-145); Total Bilirubin <0.2 mg/dL (0.3-1.2); Total Protein 5.6 g/dL (6.2-8.2)
[2025-04-02] MEDS: PEG 3350 (236 GM/BTL) + LYTES 4,000 ML BOTTLE PO ONE (10:47)
[2025-04-02 12:29] LABS: Glucose,Whole Blood 159 mg/dL (70-110)
--- NOTE | 2025-04-02 13:32 | P.PN ---
Subjective Progress Note Date: 04/02/25 patient is a 59-year-old gentleman past medical history significant for hypertension, diabetes mellitus who presented to the hospital for weakness. Patient was recently admitted in January of this year for abdominal pain at which time patient underwent laparoscopic cholecystectomy. Patient stated that he has been having diarrhea for the last couple of weeks, bowel movements ranged from 3-4 times a day. There is no complaint of blood in the stool. Patient denies any fever or chills. There is no complaint of chest pain. Patient is complaining of shortness of breath on exertion. There is no complaint of orthopnea or PND. Patient is complaining of palpitations at times. Because of the symptoms, patient came to the ER Initial lab work done in the ER showed 7.23, hemoglobin 9.1, platelet count 112, sodium 138, potassium 4, chloride 109, carbon send 11, anion gap 18, creatinine 1.48 calcium 8.3, magnesium 0.9 troponin 0.012 EKG done in the ER showed heart rate of 85 , no ST segment elevation or depression seen, no T-wave inversions seen. Chest x-ray done in the ER showed no acute cardiopulmonary process Patient admitted to internal medicine service 04/02. Patient seen and examined. Labs on this morning showed WBC 5.85, hemoglobin 9.1, platelet count 110, sodium 139, potassium 4, BUN 17.8, creatinine 1.1, calcium 7.9. CTA chest done showed no evidence of any PE states diarrhea slightly improved. Surgery following, planning colonoscopy tomorrow REVIEW OF SYSTEMS: CONSTITUTIONAL: No fever, no malaise,. CARDIOVASCULAR: No chest pain, no palpitations, no syncope. PULMONARY: No shortness of breath, no cough, GASTROINTESTINAL: As mentioned above NEUROLOGICAL: No headaches, no weakness, PHYSICAL EXAMINATION: GENERAL: The patient is alert and oriented x3, not in any acute distress. Well developed, well nourished. HEENT: Pupils are round and equally reacting to light. EOMI. No scleral icterus. No conjunctival pallor. Normocephalic, atraumatic. No pharyngeal erythema. No thyromegaly. CARDIOVASCULAR: S1 and S2 present. No murmurs, rubs, or gallops. PULMONARY: Chest is clear to auscultation, no wheezing or crackles. ABDOMEN: Soft, nontender, nondistended, normoactive bowel sounds. No palpable organomegaly. MUSCULOSKELETAL: No joint swelling or deformity. EXTREMITIES: No cyanosis, clubbing, or pedal edema. NEUROLOGICAL: Gross neurological examination did not reveal any focal deficits. SKIN: No rashes. Assessment and plan Generalized weakness Postcholecystectomy diarrhea syndrome Hypomagnesemia Hypocalcemia Acute kidney injury Metabolic acidosis History of hypertension Diabetes mellitus Monitor vital signs Monitor CBC Monitor CMP Continue IV fluids Continue antiemetics Continue cholestyramine Continue magnesium oxide Continue IV Protonix Continue Lipitor Continue losartan Surgery following, planning colonoscopy in the morning Labs and medication were reviewed.. Continue same treatment. Continue with symptomatic treatment. Resume home medication. Monitor labs and vitals. DVT and GI prophylaxis. Further recommendations as per clinical course of the patient Dictation was produced using [employer] dictation software. please excuse any grammatical, word or spelling errors. Objective - Vital Signs Vital signs: Vital Signs Temp 98.2 F 04/02/25 08:00 Pulse 76 04/02/25 08:00 Resp 18 04/02/25 08:00 BP 129/72 04/02/25 08:00 Pulse Ox 97 04/02/25 08:16 FiO2 Intake & Output 04/01/25 04/02/25 04/02/25 18:59 06:59 18:59 Intake Total 540 Balance 540 Weight 131.995 kg Intake: Oral 540 Other: Voiding Method Toilet # Voids 2 2 - Labs CBC & Chem 7: 04/02/25 04:02 04/02/25 04:02 Labs: Abnormal Lab Results - Last 24 Hours (Table) 04/01/25 04/01/25 04/01/25 Range/Units 04:36 12:18 13:17 RBC (4.40-5.60) X 10*6/uL Hgb (13.0-17.0) g/dL Hct (39.6-50.0) % MCH (27.0-32.0) pg MCHC (32.0-37.0) g/dL RDW (11.5-14.5) % Plt Count (140-440) X 10*3/uL D-Dimer 1.31 H (<0.60) mg/L FEU Chloride (96-109) mmol/L Carbon Dioxide 15.2 L (21.6-31.8) mmol/L Anion Gap 14.80 H (4.00-12.00) mmol/L Est GFR (CKD-EPI) 57 L (>=60) POC Glucose (mg/dL) 124 H (70-110) mg/dL Calcium 8.0 L (8.7-10.3) mg/dL Total Bilirubin 0.2 L (0.3-1.2) mg/dL Total Protein (6.2-8.2) g/dL Albumin (3.8-4.9) g/dL Albumin/Globulin Ratio 1.58 L (1.60-3.17) Ratio 04/02/25 04/02/25 Range/Units 04:02 04:02 RBC 3.56 L (4.40-5.60) X 10*6/uL Hgb 9.1 L (13.0-17.0) g/dL Hct 28.9 L (39.6-50.0) % MCH 25.6 L (27.0-32.0) pg MCHC 31.5 L (32.0-37.0) g/dL RDW 15.1 H (11.5-14.5) % Plt Count 110 L (140-440) X 10*3/uL D-Dimer (<0.60) mg/L FEU Chloride 114 H (96-109) mmol/L Carbon Dioxide 16.2 L (21.6-31.8) mmol/L Anion Gap (4.00-12.00) mmol/L Est GFR (CKD-EPI) (>=60) POC Glucose (mg/dL) (70-110) mg/dL Calcium 7.9 L (8.7-10.3) mg/dL Total Bilirubin <0.2 L (0.3-1.2) mg/dL Total Protein 5.6 L (6.2-8.2) g/dL Albumin 3.5 L (3.8-4.9) g/dL Albumin/Globulin Ratio (1.60-3.17) Ratio
[2025-04-02 16:56] LABS: Glucose,Whole Blood 99 mg/dL (70-110)
[2025-04-02 20:32] LABS: Glucose,Whole Blood 112 mg/dL (70-110)
[2025-04-03 07:07] LABS: Glucose,Whole Blood 93 mg/dL (70-110)
--- NOTE | 2025-04-03 08:42 | P.PN ---
Subjective Progress Note Date: 04/03/25 This is a 59-year-old male who was admitted for weakness and ongoing diarrhea. Patient had a laparoscopic cholecystectomy in January and since has been having increasing diarrhea, averaging 3-4 times a day. Patient denies any blood in the stool. Patient will undergo a colonoscopy today. Objective - Vital Signs Vital signs: Vital Signs Temp 99.4 F 04/03/25 07:28 Pulse 75 04/03/25 07:28 Resp 18 04/03/25 07:28 BP 121/76 04/03/25 07:28 Pulse Ox 97 04/03/25 07:28 FiO2 Intake & Output 04/02/25 04/03/25 04/03/25 18:59 06:59 18:59 Intake Total 2240 Output Total 400 Balance 1840 Intake: Oral 2240 Output: Urine 400 Other: # Voids 2 3 - Constitutional General appearance: Present: cooperative, no acute distress - EENT Eyes: Present: PERRLA - Neck Neck: Present: normal ROM. Absent: lymphadenopathy, rigidity - Respiratory Respiratory: bilateral: diminished - Cardiovascular Heart sounds: normal: S1, S2 - Gastrointestinal General gastrointestinal: Present: soft. Absent: tenderness - Integumentary Integumentary: Present: normal, normal turgor - Musculoskeletal Musculoskeletal: Present: generalized weakness - Psychiatric Psychiatric: Present: A&O x's 3 - Labs CBC & Chem 7: 04/02/25 04:02 04/02/25 04:02 Labs: Abnormal Lab Results - Last 24 Hours (Table) 04/02/25 04/02/25 04/02/25 Range/Units 04:02 04:02 12:18 RBC 3.56 L (4.40-5.60) X 10*6/uL Hgb 9.1 L (13.0-17.0) g/dL Hct 28.9 L (39.6-50.0) % MCH 25.6 L (27.0-32.0) pg MCHC 31.5 L (32.0-37.0) g/dL RDW 15.1 H (11.5-14.5) % Plt Count 110 L (140-440) X 10*3/uL Chloride 114 H (96-109) mmol/L Carbon Dioxide 16.2 L (21.6-31.8) mmol/L POC Glucose (mg/dL) 159 H (70-110) mg/dL Calcium 7.9 L (8.7-10.3) mg/dL Total Bilirubin <0.2 L (0.3-1.2) mg/dL Total Protein 5.6 L (6.2-8.2) g/dL Albumin 3.5 L (3.8-4.9) g/dL 04/02/25 Range/Units 20:31 RBC (4.40-5.60) X 10*6/uL Hgb (13.0-17.0) g/dL Hct (39.6-50.0) % MCH (27.0-32.0) pg MCHC (32.0-37.0) g/dL RDW (11.5-14.5) % Plt Count (140-440) X 10*3/uL Chloride (96-109) mmol/L Carbon Dioxide (21.6-31.8) mmol/L POC Glucose (mg/dL) 112 H (70-110) mg/dL Calcium (8.7-10.3) mg/dL Total Bilirubin (0.3-1.2) mg/dL Total Protein (6.2-8.2) g/dL Albumin (3.8-4.9) g/dL Assessment and Plan (1) Diabetes Current Visit: No Status: Acute Code(s): E11.9 - TYPE 2 DIABETES MELLITUS WITHOUT COMPLICATIONS SNOMED Code(s): 18421885 (2) History of laparoscopic cholecystectomy Current Visit: No Status: Acute Code(s): Z90.49 - ACQUIRED ABSENCE OF OTHER SPECIFIED PARTS OF DIGESTIVE TRACT SNOMED Code(s): 392160995 (3) Obesity Current Visit: No Status: Acute Code(s): E66.9 - OBESITY, UNSPECIFIED SNOMED Code(s): 055077914 (4) Weakness Current Visit: Yes Status: Acute Code(s): R53.1 - WEAKNESS SNOMED Code(s): 24804585 (5) Diarrhea Current Visit: Yes Status: Acute Code(s): R19.7 - DIARRHEA, UNSPECIFIED SNOMED Code(s): 29016126 (6) Hypertension Current Visit: Yes Status: Acute Code(s): I10 - ESSENTIAL (PRIMARY) HYPERTENSION SNOMED Code(s): 94208595 Plan: Await results of colonoscopy. Check CBC, CMP, and magnesium in the morning. Patient seen and evaluated by nurse practitioner, physician in agreement with plan.
[2025-04-03 10:15] LABS: HCT 29.1 % (39.6-50.0); HGB 9.7 g/dL (13.0-17.0); MCH 26.4 pg (27.0-32.0); MCHC 33.3 g/dL (32.0-37.0); MCV 79.3 FL (80.0-97.0); Mean Platelet Volume 10.8 FL (9.5-12.2); NRBC Per 100 WBC 0 X 10*3/uL (0.00-0.01); Platelet Count 105 X 10*3/uL (140-440); RBC 3.67 X 10*6/uL (4.40-5.60); RDW 15.1 % (11.5-14.5); WBC 5.01 X 10*3/uL (4.50-10.00)
[2025-04-03 10:16] LABS: Basophils # (A) 0.02 X 10*3/uL (0.00-0.10); Basophils % (A) 0.4 %; Eosinophils # (A) 0.17 X 10*3/uL (0.04-0.35); Eosinophils % (A) 3.4 %; Lymphocytes # (A) 1.46 X 10*3/uL (0.90-5.00); Lymphocytes % (A) 29.1 %; Monocytes # (A) 0.26 X 10*3/uL (0.20-1.00); Monocytes % (A) 5.2 %; Neutrophils # (A) 3.06 X 10*3/uL (1.80-7.70); Neutrophils % (A) 61.1 %
[2025-04-03 10:28] LABS: ALT 17 U/L (10-49); AST 16 U/L (14-35); Albumin 3.6 g/dL (3.8-4.9); Albumin/Globulin Ratio 1.64 Ratio (1.60-3.17); Alkaline Phosphatase 103 U/L (41-126); BUN/Creat Ratio 11.88 Ratio (12.00-20.00); Blood Urea Nitrogen 9.5 mg/dL (9.0-27.0); Carbon Dioxide 19.3 mmol/L (21.6-31.8); Chloride 114 mmol/L (96-109); Globulin 2.2 g/dL (1.6-3.3); Glucose 91 mg/dL (70-110); Magnesium 1.4 mg/dL (1.5-2.4); Potassium 3.5 mmol/L (3.5-5.5); Sodium 143 mmol/L (135-145); Total Bilirubin 0.2 mg/dL (0.3-1.2); Total Protein 5.8 g/dL (6.2-8.2)
[2025-04-03] MEDS ORDERED: PROPOFOL 10 MG/ML 20 ML VIAL IV ONE (11:40)
[2025-04-03] MEDS: IV FLUID CONTINUATION 1,000 ML IV ONE (12:00)
--- NOTE | 2025-04-03 12:05 | P.OP ---
Date of Procedure: 04/03/25 Preoperative Diagnosis: Diarrhea Postoperative Diagnosis: Proctitis Diverticulosis Procedure(s) Performed: Colonoscopy Anesthesia: MAC Surgeon: Roger uLcas Pathology: other (Rectum) Condition: stable Disposition: PACU Description of Procedure: The patient was placed on the endoscopy table in the lateral position. He received IV sedation. Digital rectal exam was performed. This revealed no abnormalities. The flexible colonoscope was then placed patient Anaspaz throughout the entire colon. The ileocecal valve was visualized. The cecum, ascending and transverse colon appeared normal. In the descending and sigmoid colon there was moderate diverticular changes. The scope was then brought back the rectum and appeared to be some minimal inflammation. A biopsy was performed. The scope was then withdrawn from patient.
[2025-04-03 12:20] LABS: Glucose,Whole Blood 97 mg/dL (70-110)
[2025-04-03] MEDS: MAGNESIUM SULFATE-D5W PMX 1 GM in DEXTROSE/WATER 1 100ML.BAG IVPB SCH (13:15)
[2025-04-03 15:28] LABS: Glucose,Whole Blood 145 mg/dL (70-110)
--- NOTE | 2025-04-03 16:05 | XR ---
EXAMINATION TYPE: XR chest 1V portable DATE OF EXAM: 04/03/2025 4:01 PM COMPARISON: 03/31/2025 CLINICAL INDICATION: Male, 59 years old with history of fever unknown, rigors, TECHNIQUE: XR chest 1V portable view(s) obtained. FINDINGS: The heart size is normal. The pulmonary vasculature is normal. Patchy peripheral densities within the left lung. Correlate for pneumonia. This is an interval findin g from the comparison IMPRESSION: 1. New patchy infiltrate within the periphery of the left lung can be compatible with pneumonia. Foll ow-up is recommended. [facility], , 04/03/2025 4:03 PM
[2025-04-03] MEDS: ONDANSETRON 4 MG/2 ML VIAL IVP PRN (16:08)
[2025-04-03 16:34] LABS: Basophils # (A) 0.03 10*3/uL (0.00-0.10); Basophils % (A) 0.3 %; Eosinophils # (A) 0.09 10*3/uL (0.04-0.35); HCT 31.9 % (39.6-50.0); HGB 10.6 g/dL (13.0-17.0); Lymphocytes # (A) 1.02 10*3/uL (0.90-5.00); Lymphocytes % (A) 10.9 %; MCH 26.4 pg (27.0-32.0); MCHC 33.2 g/dL (32.0-37.0); MCV 79.6 fL (80.0-97.0); Mean Platelet Volume 10.5 fL (9.5-12.2); Monocytes % (A) 4.3 %; Neutrophils # (A) 7.74 10*3/uL (1.80-7.70); Neutrophils % (A) 83.1 %; Platelet Count 114 10*3/uL (140-440); RBC 4.01 10*6/uL (4.40-5.60); RDW 15.1 % (11.5-14.5); WBC 9.32 10*3/uL (4.50-10.00)
[2025-04-03 16:45] LABS: ALT 17 U/L (4-49); AST 17 U/L (17-59); African American GFR (CKD) >90 (>60 ml/min/1.73 sqM); Albumin 3.6 g/dL (3.5-5.0); Albumin/Globulin Ratio 1.3; Alkaline Phosphatase 106 U/L (38-126); Anion Gap 12 mmol/L; Blood Urea Nitrogen 7 mg/dL (9-20); Calcium 8.2 mg/dL (8.4-10.2); Carbon Dioxide 17 mmol/L (22-30); Chloride 113 mmol/L (98-107); Globulin 2.7 g/dL; Glucose 153 mg/dL (74-99); Non-African American GFR(CKD) >90 (>60 ml/min/1.73 sqM); Potassium 3.6 mmol/L (3.5-5.1); Sodium 142 mmol/L (137-145); Total Bilirubin 0.5 mg/dL (0.2-1.3); Total Protein 6.3 g/dL (6.3-8.2)
[2025-04-03 16:51] LABS: Glucose,Whole Blood 137 mg/dL (70-110)
[2025-04-03 18:33] LABS: Appearance,Urine Clear (Clear); Bilirubin,Urine Negative (Negative); Blood,Urine Negative (Negative); Color,Urine Colorless; Glucose,Urine (UA) Negative (Negative); Ketones,Urine 1+ (Negative); Leukocyte Esterase,Urine Negative (Negative); Nitrite,Urine Negative (Negative); Protein,Urine Trace (Negative); Specific Gravity,Urine 1.012 (1.001-1.035); Urobilinogen,Urine <2.0 mg/dL (<2.0)
[2025-04-03] MEDS: ACETAMINOPHEN TAB 325 MG TAB PO PRN (19:32)
[2025-04-03] MEDS: AZITHROMYCIN 500 MG in SODIUM CHLORIDE 0.9% 250 ML IVPB SCH (19:34)
[2025-04-03 20:32] LABS: Glucose,Whole Blood 143 mg/dL (70-110)
[2025-04-03] MEDS: guaiFENesin 600 MG TABLET.ER PO SCH (21:36)
[2025-04-04] MEDS: IV FLUID CONTINUATION 1,000 ML IV ONE (07:29)
[2025-04-04 07:36] LABS: Glucose,Whole Blood 113 mg/dL (70-110)
[2025-04-04] MEDS: DEXAMETHASONE SOD PHOSPHATE 4 MG/ML 1 ML VIAL IVP STA (07:45)
[2025-04-04] MEDS: LACTATED RINGERS 1,000 ML BAG IV STA (07:45)
[2025-04-04] MEDS ORDERED: fentaNYL (PF) 50 MCG/ML 2 ML AMP ONE (08:02)
[2025-04-04] MEDS ORDERED: PROPOFOL 10 MG/ML 20 ML VIAL IV ONE (08:02)
[2025-04-04] MEDS ORDERED: PHENYLEPHRINE 10 MG/ML VIAL ONE (08:02)
[2025-04-04] MEDS ORDERED: GLYCOPYRROLATE 0.2 MG/ML 2 ML VIAL ONE (08:02)
[2025-04-04] MEDS ORDERED: SUCCINYLCHOLINE CHLORIDE 200 MG/10 ML VIAL IV ONE (08:02)
[2025-04-04] MEDS ORDERED: NEOSTIGMINE 1 MG/ML 10 ML VIAL ONE (08:02)
[2025-04-04] MEDS ORDERED: ROCURONIUM 10 MG/ML (5 ML VIAL) IV ONE (08:02)
[2025-04-04] MEDS ORDERED: LIDOCAINE 1% INJ 10MG/ML (20 ML MDV) ONE (08:02)
[2025-04-04] MEDS ORDERED: MIDAZOLAM 2 MG/2 ML VIAL ONE (08:02)
[2025-04-04] MEDS: LIDOCAINE 1%-EPI 1:100,000 20 ML VIAL SQ ONE (08:39)
--- NOTE | 2025-04-04 08:47 | P.PN ---
Subjective Progress Note Date: 04/04/25 This is a 59-year-old male who was admitted for weakness and ongoing diarrhea. Patient had a laparoscopic cholecystectomy in January and since has been having increasing diarrhea, averaging 3-4 times a day. Patient denies any blood in the stool. Patient will undergo a colonoscopy today. 04/04/2025 Patient undergoing lap band removal today. Colonoscopy completed yesterday which revealed proctitis. Patient did spike a fever yesterday after his colonoscopy. A chest x-ray was ordered which showed a new patchy infiltrate and on antibiotics were started. Objective - Vital Signs Vital signs: Vital Signs Temp 98.0 F 04/04/25 07:28 Pulse 77 04/04/25 07:28 Resp 18 04/04/25 07:28 BP 122/67 04/04/25 07:28 Pulse Ox 97 04/04/25 07:28 FiO2 Intake & Output 04/03/25 04/04/25 04/04/25 18:59 06:59 18:59 Intake Total 500 1690 100 Output Total 300 Balance 200 1690 100 Intake: IV 500 100 Intake, IV Titration 1450 Amount Azithromycin 500 mg In 250 Sodium Chloride 0.9% 250 ml @ 250 mls/hr IVPB HS UBALDO Rx#:[id number] Sodium Chloride 0.9% 1, 1200 000 ml @ 100 mls/hr IV . Q10H UBALDO Rx#:[id number] Oral 240 Output: Urine 200 Emesis 100 Other: Voiding Method Toilet # Voids 2 - Constitutional General appearance: Present: cooperative, no acute distress - EENT Eyes: Present: PERRLA - Neck Neck: Present: normal ROM. Absent: lymphadenopathy, rigidity - Respiratory Respiratory: bilateral: diminished - Cardiovascular Heart sounds: normal: S1, S2 - Gastrointestinal General gastrointestinal: Present: soft. Absent: tenderness - Integumentary Integumentary: Present: normal, normal turgor - Musculoskeletal Musculoskeletal: Present: generalized weakness - Psychiatric Psychiatric: Present: A&O x's 3 - Labs CBC & Chem 7: 04/03/25 16:22 04/03/25 16:21 Labs: Abnormal Lab Results - Last 24 Hours (Table) 04/03/25 04/03/25 04/03/25 Range/Units 06:49 06:49 15:22 RBC 3.67 L (4.40-5.60) X 10*6/uL Hgb 9.7 L (13.0-17.0) g/dL Hct 29.1 L (39.6-50.0) % MCV 79.3 L (80.0-97.0) FL MCH 26.4 L (27.0-32.0) pg RDW 15.1 H (11.5-14.5) % Plt Count 105 L (140-440) X 10*3/uL Neutrophils # (1.80-7.70) 10*3/uL Chloride 114 H (96-109) mmol/L Carbon Dioxide 19.3 L (21.6-31.8) mmol/L BUN (9-20) mg/dL BUN/Creatinine Ratio 11.88 L (12.00-20.00) Ratio Glucose (74-99) mg/dL POC Glucose (mg/dL) 145 H (70-110) mg/dL Calcium 8.0 L (8.7-10.3) mg/dL Magnesium 1.4 L (1.5-2.4) mg/dL Total Bilirubin 0.2 L (0.3-1.2) mg/dL Total Protein 5.8 L (6.2-8.2) g/dL Albumin 3.6 L (3.8-4.9) g/dL Urine Protein (Negative) Urine Ketones (Negative) 04/03/25 04/03/25 04/03/25 Range/Units 16:21 16:22 16:46 RBC 4.01 L (4.40-5.60) X 10*6/uL Hgb 10.6 L (13.0-17.0) g/dL Hct 31.9 L (39.6-50.0) % MCV 79.6 L (80.0-97.0) FL MCH 26.4 L (27.0-32.0) pg RDW 15.1 H (11.5-14.5) % Plt Count 114 L (140-440) X 10*3/uL Neutrophils # 7.74 H (1.80-7.70) 10*3/uL Chloride 113 H (96-109) mmol/L Carbon Dioxide 17 L (21.6-31.8) mmol/L BUN 7 L (9-20) mg/dL BUN/Creatinine Ratio (12.00-20.00) Ratio Glucose 153 H (74-99) mg/dL POC Glucose (mg/dL) 137 H (70-110) mg/dL Calcium 8.2 L (8.7-10.3) mg/dL Magnesium (1.5-2.4) mg/dL Total Bilirubin (0.3-1.2) mg/dL Total Protein (6.2-8.2) g/dL Albumin (3.8-4.9) g/dL Urine Protein (Negative) Urine Ketones (Negative) 04/03/25 04/03/25 04/04/25 Range/Units 18:03 20:31 07:34 RBC (4.40-5.60) X 10*6/uL Hgb (13.0-17.0) g/dL Hct (39.6-50.0) % MCV (80.0-97.0) FL MCH (27.0-32.0) pg RDW (11.5-14.5) % Plt Count (140-440) X 10*3/uL Neutrophils # (1.80-7.70) 10*3/uL Chloride (96-109) mmol/L Carbon Dioxide (21.6-31.8) mmol/L BUN (9-20) mg/dL BUN/Creatinine Ratio (12.00-20.00) Ratio Glucose (74-99) mg/dL POC Glucose (mg/dL) 143 H 113 H (70-110) mg/dL Calcium (8.7-10.3) mg/dL Magnesium (1.5-2.4) mg/dL Total Bilirubin (0.3-1.2) mg/dL Total Protein (6.2-8.2) g/dL Albumin (3.8-4.9) g/dL Urine Protein Trace H (Negative) Urine Ketones 1+ H (Negative) Assessment and Plan (1) Diabetes Current Visit: No Status: Acute Code(s): E11.9 - TYPE 2 DIABETES MELLITUS WITHOUT COMPLICATIONS SNOMED Code(s): 22724054 (2) History of laparoscopic cholecystectomy Current Visit: No Status: Acute Code(s): Z90.49 - ACQUIRED ABSENCE OF OTHER SPECIFIED PARTS OF DIGESTIVE TRACT SNOMED Code(s): 586289846 (3) Obesity Current Visit: No Status: Acute Code(s): E66.9 - OBESITY, UNSPECIFIED SNOMED Code(s): 865196894 (4) Weakness Current Visit: Yes Status: Acute Code(s): R53.1 - WEAKNESS SNOMED Code(s): 03537633 (5) Diarrhea Current Visit: Yes Status: Acute Code(s): R19.7 - DIARRHEA, UNSPECIFIED SNOMED Code(s): 01195705 (6) Hypertension Current Visit: Yes Status: Acute Code(s): I10 - ESSENTIAL (PRIMARY) HYPERTENSION SNOMED Code(s): 98934848 (7) Pneumonia Current Visit: No Status: Acute Code(s): J18.9 - PNEUMONIA, UNSPECIFIED ORGANISM SNOMED Code(s): 269711628 Plan: Check CBC, and CMP in the morning. Patient seen and evaluated by nurse practitioner, physician in agreement with plan.
--- NOTE | 2025-04-04 09:19 | P.OP ---
Date of Procedure: 04/04/25 Preoperative Diagnosis: Dysphagia Postoperative Diagnosis: Dysphagia Procedure(s) Performed: Laparoscopic removal of Lap-Band system Anesthesia: CLARA Surgeon: Roger Lucas Estimated Blood Loss (ml): 5 Pathology: none sent Condition: stable Disposition: PACU Description of Procedure: The patient was placed on the operative table in the supine position. He received general anesthesia. He was then placed in the dorsal t lithotomy gh position. His abdomen was prepped and draped you sterile fashion. The incision sites were anesthetized 1% local Xylocaine. The Lap-Band port was dissected free. The skin was incised at the port site and using blunt sharp electrocautery Lap-Band port was dissected free and removed. Next using a 5 mm optical trocar under direct vision the peritoneal cavity is entered. Upon entering the peritoneal cavity the abs insufflated. After segundo quate insufflation the laparoscope placed back Liparol cavity. And then a 5 mm trocars placed in the right epigastric position and the left lateral lobe liver was retracted. I then another 5 mm trocars placed in the right lateral and left lateral position. And then the original 5 mm trocar was exchanged for a 15 mm trocar. The adhesions to the Lap-Band device were then lysed using electrocaute ry. The Lap-Band device buckle was undone and then the Lap-Band device was cut and withdrawn from the stomach. There is no injury to stomach seen. The Lap- Band device then withdrawn through the 15 mm trocar site. The abdomen inspected. There is no bleeding seen. The term was withdrawn. Skin was closed interrupted 3-0 Monocryl suture. Dermabond wrist was applied. Patient Toller procedure well. He was sent to recovery in stable condition.
[2025-04-04 09:24] LABS: Glucose,Whole Blood 142 mg/dL (70-110)
[2025-04-04 10:21] LABS: HCT 28.4 % (39.6-50.0); HGB 9.1 g/dL (13.0-17.0); MCH 25.9 pg (27.0-32.0); MCV 80.9 FL (80.0-97.0); Mean Platelet Volume 10.4 FL (9.5-12.2); NRBC Per 100 WBC 0 X 10*3/uL (0.00-0.01); Platelet Count 92 X 10*3/uL (140-440); RBC 3.51 X 10*6/uL (4.40-5.60); RDW 15.2 % (11.5-14.5)
[2025-04-04 11:40] LABS: ALT 14 U/L (10-49); AST 12 U/L (14-35); Albumin 3.3 g/dL (3.8-4.9); Albumin/Globulin Ratio 1.57 Ratio (1.60-3.17); Alkaline Phosphatase 91 U/L (41-126); BUN/Creat Ratio 8.44 Ratio (12.00-20.00); Blood Urea Nitrogen 7.6 mg/dL (9.0-27.0); Calcium 7.7 mg/dL (8.7-10.3); Carbon Dioxide 22.6 mmol/L (21.6-31.8); Chloride 112 mmol/L (96-109); Globulin 2.1 g/dL (1.6-3.3); Glucose 107 mg/dL (70-110); Magnesium 1.7 mg/dL (1.5-2.4); Potassium 3.7 mmol/L (3.5-5.5); Sodium 144 mmol/L (135-145); Total Bilirubin 0.3 mg/dL (0.3-1.2); Total Protein 5.4 g/dL (6.2-8.2)
[2025-04-04 12:47] LABS: Glucose,Whole Blood 178 mg/dL (70-110)
--- NOTE | 2025-04-04 13:26 | P.PN ---
Subjective Progress Note Date: 04/04/25 SURGICAL PROGRESS NOTE CHIEF COMPLAINT: Diarrhea HISTORY OF PRESENT ILLNESS: Patient is status post colonoscopy yesterday which revealed proctitis and diverticulosis. He had laparoscopic removal of Lap-Band system today for dysphagia. Patient denies any flatus. Denies any nausea or vomiting. Afebrile. WBC 10.2 Hgb 9.1 PHYSICAL EXAM: VITAL SIGNS: Reviewed. GENERAL: Well-developed in no acute distress. ABDOMEN: Soft. Nondistended. Tenderness at incision sites. Incision sites clean dry and intact. NEUROLOGIC: Alert and oriented. Cranial nerves II through XII grossly intact. ASSESSMENT: 1. Diarrhea status post colonoscopy revealing proctitis and diverticulosis 2. Status post lap band removal for dysphagia PLAN: - Start clear liquid diet - Encourage patient to increase activity level - Continue to monitor Physician Tape Making Machine Operator note has been reviewed by physician. Signing provider agrees with the documented findings, assessment, and plan of care. Objective - Vital Signs Vital signs: Vital Signs Temp 98.7 F 04/04/25 10:20 Pulse 68 04/04/25 10:20 Resp 17 04/04/25 10:20 BP 120/68 04/04/25 10:20 Pulse Ox 94 L 04/04/25 10:20 FiO2 Intake & Output 04/03/25 04/04/25 04/04/25 18:59 06:59 18:59 Intake Total 500 1690 550 Output Total 300 10 Balance 200 1690 540 Intake: IV 500 550 Intake, IV Titration 1450 Amount Azithromycin 500 mg In 250 Sodium Chloride 0.9% 250 ml @ 250 mls/hr IVPB HS UBALDO Rx#:[id number] Sodium Chloride 0.9% 1, 1200 000 ml @ 100 mls/hr IV . Q10H UBALDO Rx#:[id number] Oral 240 Output: Urine 200 Emesis 100 Estimated Blood Loss 10 Other: Voiding Method Toilet # Voids 2 - Labs CBC & Chem 7: 04/04/25 06:16 04/04/25 06:16 Labs: Abnormal Lab Results - Last 24 Hours (Table) 04/03/25 04/03/25 04/03/25 Range/Units 15:22 16:21 16:22 WBC (4.50-10.00) X 10*3/uL RBC 4.01 L (4.40-5.60) 10*6/uL Hgb 10.6 L (13.0-17.0) g/dL Hct 31.9 L (39.6-50.0) % MCV 79.6 L (80.0-97.0) fL MCH 26.4 L (27.0-32.0) pg RDW 15.1 H (11.5-14.5) % Plt Count 114 L (140-440) 10*3/uL Neutrophils # 7.74 H (1.80-7.70) 10*3/uL Chloride 113 H (98-107) mmol/L Carbon Dioxide 17 L (22-30) mmol/L BUN 7 L (9-20) mg/dL BUN/Creatinine Ratio (12.00-20.00) Ratio Glucose 153 H (74-99) mg/dL POC Glucose (mg/dL) 145 H (70-110) mg/dL Calcium 8.2 L (8.4-10.2) mg/dL AST (14-35) U/L Total Protein (6.2-8.2) g/dL Albumin (3.8-4.9) g/dL Albumin/Globulin Ratio (1.60-3.17) Ratio Urine Protein (Negative) Urine Ketones (Negative) 04/03/25 04/03/25 04/03/25 Range/Units 16:46 18:03 20:31 WBC (4.50-10.00) X 10*3/uL RBC (4.40-5.60) 10*6/uL Hgb (13.0-17.0) g/dL Hct (39.6-50.0) % MCV (80.0-97.0) fL MCH (27.0-32.0) pg RDW (11.5-14.5) % Plt Count (140-440) 10*3/uL Neutrophils # (1.80-7.70) 10*3/uL Chloride (98-107) mmol/L Carbon Dioxide (22-30) mmol/L BUN (9-20) mg/dL BUN/Creatinine Ratio (12.00-20.00) Ratio Glucose (74-99) mg/dL POC Glucose (mg/dL) 137 H 143 H (70-110) mg/dL Calcium (8.4-10.2) mg/dL AST (14-35) U/L Total Protein (6.2-8.2) g/dL Albumin (3.8-4.9) g/dL Albumin/Globulin Ratio (1.60-3.17) Ratio Urine Protein Trace H (Negative) Urine Ketones 1+ H (Negative) 04/04/25 04/04/25 04/04/25 Range/Units 06:16 06:16 07:34 WBC 10.20 H (4.50-10.00) X 10*3/uL RBC 3.51 L (4.40-5.60) 10*6/uL Hgb 9.1 L (13.0-17.0) g/dL Hct 28.4 L (39.6-50.0) % MCV (80.0-97.0) fL MCH 25.9 L (27.0-32.0) pg RDW 15.2 H (11.5-14.5) % Plt Count 92 L (140-440) 10*3/uL Neutrophils # (1.80-7.70) 10*3/uL Chloride 112 H (98-107) mmol/L Carbon Dioxide (22-30) mmol/L BUN 7.6 L (9-20) mg/dL BUN/Creatinine Ratio 8.44 L (12.00-20.00) Ratio Glucose (74-99) mg/dL POC Glucose (mg/dL) 113 H (70-110) mg/dL Calcium 7.7 L (8.4-10.2) mg/dL AST 12 L (14-35) U/L Total Protein 5.4 L (6.2-8.2) g/dL Albumin 3.3 L (3.8-4.9) g/dL Albumin/Globulin Ratio 1.57 L (1.60-3.17) Ratio Urine Protein (Negative) Urine Ketones (Negative) 04/04/25 04/04/25 Range/Units 09:22 12:38 WBC (4.50-10.00) X 10*3/uL RBC (4.40-5.60) 10*6/uL Hgb (13.0-17.0) g/dL Hct (39.6-50.0) % MCV (80.0-97.0) fL MCH (27.0-32.0) pg RDW (11.5-14.5) % Plt Count (140-440) 10*3/uL Neutrophils # (1.80-7.70) 10*3/uL Chloride (98-107) mmol/L Carbon Dioxide (22-30) mmol/L BUN (9-20) mg/dL BUN/Creatinine Ratio (12.00-20.00) Ratio Glucose (74-99) mg/dL POC Glucose (mg/dL) 142 H 178 H (70-110) mg/dL Calcium (8.4-10.2) mg/dL AST (14-35) U/L Total Protein (6.2-8.2) g/dL Albumin (3.8-4.9) g/dL Albumin/Globulin Ratio (1.60-3.17) Ratio Urine Protein (Negative) Urine Ketones (Negative)
[2025-04-04] MEDS: HYDROcodone/APAP 10-325MG 1 EACH TAB PO PRN (17:05)
[2025-04-04 17:39] LABS: Glucose,Whole Blood 143 mg/dL (70-110)
[2025-04-04 20:35] LABS: Glucose,Whole Blood 105 mg/dL (70-110)
[2025-04-05 07:42] LABS: Glucose,Whole Blood 94 mg/dL (70-110)
[2025-04-05 08:09] LABS: HCT 24.4 % (39.6-50.0); HGB 7.7 g/dL (13.0-17.0); MCH 25.8 pg (27.0-32.0); MCHC 31.6 g/dL (32.0-37.0); MCV 81.6 FL (80.0-97.0); Mean Platelet Volume 10.5 FL (9.5-12.2); NRBC Per 100 WBC 0 X 10*3/uL (0.00-0.01); Platelet Count 87 X 10*3/uL (140-440); RBC 2.99 X 10*6/uL (4.40-5.60); RDW 15.4 % (11.5-14.5); WBC 7.51 X 10*3/uL (4.50-10.00)
[2025-04-05 08:36] LABS: ALT 22 U/L (10-49); AST 21 U/L (14-35); Albumin/Globulin Ratio 1.58 Ratio (1.60-3.17); Alkaline Phosphatase 81 U/L (41-126); BUN/Creat Ratio 10.38 Ratio (12.00-20.00); Blood Urea Nitrogen 8.3 mg/dL (9.0-27.0); Calcium 7.4 mg/dL (8.7-10.3); Carbon Dioxide 20.6 mmol/L (21.6-31.8); Globulin 1.9 g/dL (1.6-3.3); Glucose 97 mg/dL (70-110); Potassium 3.4 mmol/L (3.5-5.5); Total Bilirubin 0.2 mg/dL (0.3-1.2); Total Protein 4.9 g/dL (6.2-8.2)
--- NOTE | 2025-04-05 09:08 | P.PN ---
Subjective Principal diagnosis: Proctitis. Status post laparoscopic banding revision. The patient 59-year-old male with known history of multiple myeloma who came in with diarrhea after having cholecystectomy. Proctitis was noted on colonoscopy. The patient recently had lap band removed. The patient states still feels epigastric pain. The patient states minimal flatus Objective - Vital Signs Vital signs: Vital Signs Temp 98.2 F 04/05/25 07:20 Pulse 73 04/05/25 07:20 Resp 15 04/05/25 07:20 BP 122/74 04/05/25 07:20 Pulse Ox 94 L 04/05/25 07:20 FiO2 Intake & Output 04/04/25 04/05/25 04/05/25 18:59 06:59 18:59 Intake Total 1290 1590 Output Total 10 Balance 1280 1590 Weight 131.995 kg Intake: IV 550 Intake, IV Titration 740 1350 Amount Azithromycin 500 mg In 250 Sodium Chloride 0.9% 250 ml @ 250 mls/hr IVPB HS UBALDO Rx#:[id number] Sodium Chloride 0.9% 1, 740 1100 000 ml @ 100 mls/hr IV . Q10H UBALDO Rx#:[id number] Oral 240 Output: Estimated Blood Loss 10 Other: Voiding Method Toilet # Voids 2 - Constitutional General appearance: Present: obese - EENT Eyes: Absent: abnormal pupil - Neck Neck: Absent: lymphadenopathy - Respiratory Respiratory: bilateral: CTA - Cardiovascular Rhythm: regular Abnormal Heart Sounds: Absent: S3 Gallop, S4 Gallop - Gastrointestinal General gastrointestinal: Present: soft, tenderness - Labs CBC & Chem 7: 04/05/25 06:03 04/05/25 06:03 Labs: Abnormal Lab Results - Last 24 Hours (Table) 04/04/25 04/04/25 04/04/25 Range/Units 06:16 06:16 09:22 WBC 10.20 H (4.50-10.00) X 10*3/uL RBC 3.51 L (4.40-5.60) X 10*6/uL Hgb 9.1 L (13.0-17.0) g/dL Hct 28.4 L (39.6-50.0) % MCH 25.9 L (27.0-32.0) pg MCHC (32.0-37.0) g/dL RDW 15.2 H (11.5-14.5) % Plt Count 92 L (140-440) X 10*3/uL Potassium (3.5-5.5) mmol/L Chloride 112 H (96-109) mmol/L Carbon Dioxide (21.6-31.8) mmol/L BUN 7.6 L (9.0-27.0) mg/dL BUN/Creatinine Ratio 8.44 L (12.00-20.00) Ratio POC Glucose (mg/dL) 142 H (70-110) mg/dL Calcium 7.7 L (8.7-10.3) mg/dL Total Bilirubin (0.3-1.2) mg/dL AST 12 L (14-35) U/L Total Protein 5.4 L (6.2-8.2) g/dL Albumin 3.3 L (3.8-4.9) g/dL Albumin/Globulin Ratio 1.57 L (1.60-3.17) Ratio 04/04/25 04/04/25 04/05/25 Range/Units 12:38 17:34 06:03 WBC (4.50-10.00) X 10*3/uL RBC 2.99 L (4.40-5.60) X 10*6/uL Hgb 7.7 L (13.0-17.0) g/dL Hct 24.4 L (39.6-50.0) % MCH 25.8 L (27.0-32.0) pg MCHC 31.6 L (32.0-37.0) g/dL RDW 15.4 H (11.5-14.5) % Plt Count 87 L (140-440) X 10*3/uL Potassium (3.5-5.5) mmol/L Chloride (96-109) mmol/L Carbon Dioxide (21.6-31.8) mmol/L BUN (9.0-27.0) mg/dL BUN/Creatinine Ratio (12.00-20.00) Ratio POC Glucose (mg/dL) 178 H 143 H (70-110) mg/dL Calcium (8.7-10.3) mg/dL Total Bilirubin (0.3-1.2) mg/dL AST (14-35) U/L Total Protein (6.2-8.2) g/dL Albumin (3.8-4.9) g/dL Albumin/Globulin Ratio (1.60-3.17) Ratio 04/05/25 Range/Units 06:03 WBC (4.50-10.00) X 10*3/uL RBC (4.40-5.60) X 10*6/uL Hgb (13.0-17.0) g/dL Hct (39.6-50.0) % MCH (27.0-32.0) pg MCHC (32.0-37.0) g/dL RDW (11.5-14.5) % Plt Count (140-440) X 10*3/uL Potassium 3.4 L (3.5-5.5) mmol/L Chloride (96-109) mmol/L Carbon Dioxide 20.6 L (21.6-31.8) mmol/L BUN 8.3 L (9.0-27.0) mg/dL BUN/Creatinine Ratio 10.38 L (12.00-20.00) Ratio POC Glucose (mg/dL) (70-110) mg/dL Calcium 7.4 L (8.7-10.3) mg/dL Total Bilirubin 0.2 L (0.3-1.2) mg/dL AST (14-35) U/L Total Protein 4.9 L (6.2-8.2) g/dL Albumin 3.0 L (3.8-4.9) g/dL Albumin/Globulin Ratio 1.58 L (1.60-3.17) Ratio Microbiology - Last 24 Hours (Table) 04/03/25 16:21 Blood Culture - Preliminary Blood Assessment and Plan (1) Proctitis Current Visit: Yes Status: Acute Code(s): K62.89 - OTHER SPECIFIED DISEASES OF ANUS AND RECTUM SNOMED Code(s): 8049379 (2) Dehydration Current Visit: Yes Status: Acute Priority: High Code(s): E86.0 - DEHYDRATION SNOMED Code(s): 41627741 (3) Diarrhea Current Visit: Yes Status: Acute Code(s): R19.7 - DIARRHEA, UNSPECIFIED SNOMED Code(s): 31584775 (4) History of laparoscopic cholecystectomy Current Visit: No Status: Acute Code(s): Z90.49 - ACQUIRED ABSENCE OF OTHER SPECIFIED PARTS OF DIGESTIVE TRACT SNOMED Code(s): 989862006 (5) Multiple myeloma Current Visit: No Status: Chronic Priority: High Code(s): C90.00 - MULTIPLE MYELOMA NOT HAVING ACHIEVED REMISSION SNOMED Code(s): 520935084 Plan: Advance diet with activity today. Anticipate discharge in next 24-48 hours. Check CBC and CMP in a.m.
--- NOTE | 2025-04-05 12:32 | P.PN ---
Subjective Progress Note Date: 04/05/25 SURGICAL PROGRESS NOTE CHIEF COMPLAINT: Diarrhea HISTORY OF PRESENT ILLNESS: Patient is postop day 1 status post lap band removal. Patient is sitting up in bedside chair. Pain is controlled. No bowel activity. He did have episode of vomiting after surgery. He is worked with physical therapy they are recommending subacute rehab. Afebrile. WBC 7.51 Hgb 7.7 platelets 87 potassium 3.4 creatinine 0.8 PHYSICAL EXAM: VITAL SIGNS: Reviewed. GENERAL: Well-developed in no acute distress. ABDOMEN: Soft. Nondistended. Tenderness at incision sites. Incision sites clean dry and intact. NEUROLOGIC: Alert and oriented. Cranial nerves II through XII grossly intact. ASSESSMENT: 1. Diarrhea status post colonoscopy revealing proctitis and diverticulosis 2. Status post lap band removal for dysphagia PLAN: - Continue regular diet -Repeat CBC in a.m. -Possible subacute rehab after discharge - Discontinue IV fluids Physician Activity Leader note has been reviewed by physician. Signing provider agrees with the documented findings, assessment, and plan of care. Objective - Vital Signs Vital signs: Vital Signs Temp 98.2 F 04/05/25 07:20 Pulse 73 04/05/25 10:04 Resp 15 04/05/25 10:04 BP 122/74 04/05/25 07:20 Pulse Ox 94 L 04/05/25 07:20 FiO2 Intake & Output 04/04/25 04/05/25 04/05/25 18:59 06:59 18:59 Intake Total 1290 1590 Output Total 10 Balance 1280 1590 Weight 131.995 kg Intake: IV 550 Intake, IV Titration 740 1350 Amount Azithromycin 500 mg In 250 Sodium Chloride 0.9% 250 ml @ 250 mls/hr IVPB HS UBALDO Rx#:[id number] Sodium Chloride 0.9% 1, 740 1100 000 ml @ 100 mls/hr IV . Q10H UBALDO Rx#:[id number] Oral 240 Output: Estimated Blood Loss 10 Other: Voiding Method Toilet Toilet # Voids 2 - Labs CBC & Chem 7: 04/05/25 06:03 04/05/25 06:03 Labs: Abnormal Lab Results - Last 24 Hours (Table) 04/04/25 04/04/25 04/05/25 Range/Units 12:38 17:34 06:03 RBC 2.99 L (4.40-5.60) X 10*6/uL Hgb 7.7 L (13.0-17.0) g/dL Hct 24.4 L (39.6-50.0) % MCH 25.8 L (27.0-32.0) pg MCHC 31.6 L (32.0-37.0) g/dL RDW 15.4 H (11.5-14.5) % Plt Count 87 L (140-440) X 10*3/uL Potassium (3.5-5.5) mmol/L Carbon Dioxide (21.6-31.8) mmol/L BUN (9.0-27.0) mg/dL BUN/Creatinine Ratio (12.00-20.00) Ratio POC Glucose (mg/dL) 178 H 143 H (70-110) mg/dL Calcium (8.7-10.3) mg/dL Total Bilirubin (0.3-1.2) mg/dL Total Protein (6.2-8.2) g/dL Albumin (3.8-4.9) g/dL Albumin/Globulin Ratio (1.60-3.17) Ratio // Range/Units 06:03 RBC (4.40-5.60) X 10*6/uL Hgb (13.0-17.0) g/dL Hct (39.6-50.0) % MCH (27.0-32.0) pg MCHC (32.0-37.0) g/dL RDW (11.5-14.5) % Plt Count (140-440) X 10*3/uL Potassium 3.4 L (3.5-5.5) mmol/L Carbon Dioxide 20.6 L (21.6-31.8) mmol/L BUN 8.3 L (9.0-27.0) mg/dL BUN/Creatinine Ratio 10.38 L (12.00-20.00) Ratio POC Glucose (mg/dL) (70-110) mg/dL Calcium 7.4 L (8.7-10.3) mg/dL Total Bilirubin 0.2 L (0.3-1.2) mg/dL Total Protein 4.9 L (6.2-8.2) g/dL Albumin 3.0 L (3.8-4.9) g/dL Albumin/Globulin Ratio 1.58 L (1.60-3.17) Ratio Microbiology - Last 24 Hours (Table) 04/03/25 16:21 Blood Culture - Preliminary Blood
[2025-04-05 12:37] LABS: Glucose,Whole Blood 118 mg/dL (70-110)
[2025-04-05] MEDS: POTASSIUM CHLORIDE ER 20 MEQ TAB.ER PO STA (12:58)
[2025-04-05] MEDS: MORPHINE SULFATE 4 MG/ML SYRINGE IVP PRN (14:35)
[2025-04-05 16:05] LABS: Chloride 113 mmol/L (96-109); Sodium 142 mmol/L (135-145)
[2025-04-05 17:25] LABS: Glucose,Whole Blood 140 mg/dL (70-110)
[2025-04-05 20:22] LABS: Glucose,Whole Blood 118 mg/dL (70-110)
[2025-04-06 05:25] LABS: Basophils # (A) 0.01 10*3/uL (0.00-0.10); Basophils % (A) 0.2 %; Eosinophils # (A) 0.33 10*3/uL (0.04-0.35); Eosinophils % (A) 6.2 %; HCT 24.7 % (39.6-50.0); Lymphocytes # (A) 1.42 10*3/uL (0.90-5.00); Lymphocytes % (A) 26.7 %; MCH 26.5 pg (27.0-32.0); MCHC 32.8 g/dL (32.0-37.0); MCV 80.7 fL (80.0-97.0); Mean Platelet Volume 9.8 fL (9.5-12.2); Monocytes # (A) 0.31 10*3/uL (0.20-1.00); Monocytes % (A) 5.8 %; Neutrophils # (A) 3.23 10*3/uL (1.80-7.70); Neutrophils % (A) 60.7 %; RBC 3.06 10*6/uL (4.40-5.60); RDW 15.4 % (11.5-14.5); WBC 5.32 10*3/uL (4.50-10.00)
[2025-04-06 05:36] LABS: HGB 8.1 g/dL (13.0-17.0); Platelet Count 87 10*3/uL (140-440)
[2025-04-06 07:21] LABS: Glucose,Whole Blood 99 mg/dL (70-110)
--- NOTE | 2025-04-06 08:32 | P.PN ---
Subjective Progress Note Date: 04/06/25 This is a 59-year-old male who was admitted for weakness and ongoing diarrhea. Patient had a laparoscopic cholecystectomy in January and since has been having increasing diarrhea, averaging 3-4 times a day. Patient denies any blood in the stool. Patient will undergo a colonoscopy today. 04/04/2025 Patient undergoing lap band removal today. Colonoscopy completed yesterday which revealed proctitis. Patient did spike a fever yesterday after his colonoscopy. A chest x-ray was ordered which showed a new patchy infiltrate and on antibiotics were started. 04/06/2025 Patient seen this morning laying in bed resting comfortably. He is postop day #2 from lap band removal. Patient still complaining of pain. He continues to have no further episodes of diarrhea. Will encourage patient to increase ambul ation today and anticipate discharge tomorrow. Objective - Vital Signs Vital signs: Vital Signs Temp 98.4 F 04/06/25 07:30 Pulse 77 04/06/25 07:30 Resp 16 04/06/25 07:30 BP 134/69 04/06/25 07:30 Pulse Ox 95 04/06/25 07:30 FiO2 Intake & Output 04/05/25 04/06/25 04/06/25 18:59 06:59 18:59 Intake Total 240 Output Total 700 Balance -700 240 Intake: Oral 240 Output: Urine 700 Other: Voiding Method Toilet # Voids 1 4 - Constitutional General appearance: Present: cooperative, no acute distress - EENT Eyes: Present: PERRLA - Neck Neck: Present: normal ROM. Absent: lymphadenopathy, rigidity - Cardiovascular Heart sounds: normal: S1, S2 - Gastrointestinal General gastrointestinal: Present: soft, tenderness - Integumentary Integumentary: Present: normal, normal turgor - Musculoskeletal Musculoskeletal: Present: generalized weakness - Psychiatric Psychiatric: Present: A&O x's 3 - Labs CBC & Chem 7: 04/06/25 05:08 04/05/25 06:03 Labs: Abnormal Lab Results - Last 24 Hours (Table) 04/05/25 04/05/25 04/05/25 Range/Units 06:03 12:32 17:19 RBC (4.40-5.60) 10*6/uL Hgb (13.0-17.0) g/dL Hct (39.6-50.0) % MCH (27.0-32.0) pg RDW (11.5-14.5) % Plt Count (140-440) 10*3/uL Potassium 3.4 L (3.5-5.5) mmol/L Chloride 113 H (96-109) mmol/L Carbon Dioxide 20.6 L (21.6-31.8) mmol/L BUN 8.3 L (9.0-27.0) mg/dL BUN/Creatinine Ratio 10.38 L (12.00-20.00) Ratio POC Glucose (mg/dL) 118 H 140 H (70-110) mg/dL Calcium 7.4 L (8.7-10.3) mg/dL Total Bilirubin 0.2 L (0.3-1.2) mg/dL Total Protein 4.9 L (6.2-8.2) g/dL Albumin 3.0 L (3.8-4.9) g/dL Albumin/Globulin Ratio 1.58 L (1.60-3.17) Ratio 04/05/25 04/06/25 Range/Units 20:17 05:08 RBC 3.06 L (4.40-5.60) 10*6/uL Hgb 8.1 L D (13.0-17.0) g/dL Hct 24.7 L (39.6-50.0) % MCH 26.5 L (27.0-32.0) pg RDW 15.4 H (11.5-14.5) % Plt Count 87 L (140-440) 10*3/uL Potassium (3.5-5.5) mmol/L Chloride (96-109) mmol/L Carbon Dioxide (21.6-31.8) mmol/L BUN (9.0-27.0) mg/dL BUN/Creatinine Ratio (12.00-20.00) Ratio POC Glucose (mg/dL) 118 H (70-110) mg/dL Calcium (8.7-10.3) mg/dL Total Bilirubin (0.3-1.2) mg/dL Total Protein (6.2-8.2) g/dL Albumin (3.8-4.9) g/dL Albumin/Globulin Ratio (1.60-3.17) Ratio Microbiology - Last 24 Hours (Table) 04/03/25 16:21 Blood Culture - Preliminary Blood Assessment and Plan (1) Diabetes Current Visit: No Status: Acute Code(s): E11.9 - TYPE 2 DIABETES MELLITUS WITHOUT COMPLICATIONS SNOMED Code(s): 38811370 (2) History of laparoscopic cholecystectomy Current Visit: No Status: Acute Code(s): Z90.49 - ACQUIRED ABSENCE OF OTHER SPECIFIED PARTS OF DIGESTIVE TRACT SNOMED Code(s): 886592427 (3) Obesity Current Visit: No Status: Acute Code(s): E66.9 - OBESITY, UNSPECIFIED SNOMED Code(s): 512656286 (4) Weakness Current Visit: Yes Status: Acute Code(s): R53.1 - WEAKNESS SNOMED Code(s): 41416243 (5) Diarrhea Current Visit: Yes Status: Acute Code(s): R19.7 - DIARRHEA, UNSPECIFIED SNOMED Code(s): 01621416 (6) Hypertension Current Visit: Yes Status: Acute Code(s): I10 - ESSENTIAL (PRIMARY) HYPERTENSION SNOMED Code(s): 63322152 (7) Pneumonia Current Visit: No Status: Acute Code(s): J18.9 - PNEUMONIA, UNSPECIFIED ORGANISM SNOMED Code(s): 368442690 Plan: Check CBC, and CMP in the morning. Anticipate discharge tomorrow May discontinue telemetry. Patient seen and evaluated by nurse practitioner, physician in agreement with plan.
[2025-04-06 12:09] LABS: Glucose,Whole Blood 108 mg/dL (70-110)
--- NOTE | 2025-04-06 12:54 | P.PN ---
Subjective Progress Note Date: 04/06/25 SURGICAL PROGRESS NOTE CHIEF COMPLAINT: Diarrhea HISTORY OF PRESENT ILLNESS: Patient is postop day#2 status post lap band removal. Patient reports his pain is getting better each day. Denies any nausea or vomiting. He is tolerating diet. He is having flatus. Denies any difficulty urinating. He has worked with physical therapy. Afebrile. WBC 5.32 Hgb 7.7-8.1 platelets 87 Patient seen and examined with Dr. Lucas PHYSICAL EXAM: VITAL SIGNS: Reviewed. GENERAL: Well-developed in no acute distress. ABDOMEN: Soft. Nondistended. Tenderness at incision sites. Incision sites clean dry and intact. NEUROLOGIC: Alert and oriented. Cranial nerves II through XII grossly intact. ASSESSMENT: 1. Diarrhea status post colonoscopy revealing proctitis and diverticulosis 2. Status post lap band removal for dysphagia PLAN: - Continue regular diet - Anticipate discharge tomorrow - Recommend to hold on restarting the Mounjaro until patient is feeling better Physician Fence Laborer note has been reviewed by physician. Signing provider agrees with the documented findings, assessment, and plan of care. Objective - Vital Signs Vital signs: Vital Signs Temp 98.1 F 04/06/25 11:28 Pulse 84 04/06/25 11:28 Resp 16 04/06/25 11:28 BP 142/80 04/06/25 11:28 Pulse Ox 98 04/06/25 11:28 FiO2 Intake & Output 04/05/25 04/06/25 04/06/25 18:59 06:59 18:59 Intake Total 720 Output Total 700 Balance -700 720 Intake: Oral 720 Output: Urine 700 Other: Voiding Method Toilet # Voids 1 4 - Labs CBC & Chem 7: 04/06/25 05:08 04/05/25 06:03 Labs: Abnormal Lab Results - Last 24 Hours (Table) 04/05/25 04/05/25 04/05/25 Range/Units 06:03 17:19 20:17 RBC (4.40-5.60) 10*6/uL Hgb (13.0-17.0) g/dL Hct (39.6-50.0) % MCH (27.0-32.0) pg RDW (11.5-14.5) % Plt Count (140-440) 10*3/uL Chloride 113 H (96-109) mmol/L POC Glucose (mg/dL) 140 H 118 H (70-110) mg/dL 04/06/25 Range/Units 05:08 RBC 3.06 L (4.40-5.60) 10*6/uL Hgb 8.1 L D (13.0-17.0) g/dL Hct 24.7 L (39.6-50.0) % MCH 26.5 L (27.0-32.0) pg RDW 15.4 H (11.5-14.5) % Plt Count 87 L (140-440) 10*3/uL Chloride (96-109) mmol/L POC Glucose (mg/dL) (70-110) mg/dL Microbiology - Last 24 Hours (Table) 04/03/25 16:21 Blood Culture - Preliminary Blood
[2025-04-06] MEDS: COLCHICINE 0.6 MG EACH PO SCH (13:34)
[2025-04-06 17:01] LABS: Glucose,Whole Blood 133 mg/dL (70-110)
[2025-04-06 20:08] LABS: Glucose,Whole Blood 119 mg/dL (70-110)
[2025-04-07 07:10] LABS: Glucose,Whole Blood 115 mg/dL (70-110)
[2025-04-07 08:18] LABS: HCT 25.3 % (39.6-50.0); HGB 8.1 g/dL (13.0-17.0); MCH 26.1 pg (27.0-32.0); MCV 81.6 FL (80.0-97.0); Mean Platelet Volume 10.7 FL (9.5-12.2); NRBC Per 100 WBC 0 X 10*3/uL (0.00-0.01); Platelet Count 97 X 10*3/uL (140-440); RDW 15.1 % (11.5-14.5); WBC 4.78 X 10*3/uL (4.50-10.00)
--- NOTE | 2025-04-07 08:28 | P.DS ---
Providers Date of admission: 03/31/25 16:51 Attending physician: Perez Pennington Consults: 04/01/25 13:53 Consult Physician Routine Consulting Provider: Roger Lucas Consult Reason/Comments: Recent lap harriett Do you want consulting provider notified?: Yes Primary care physician: Perez Pennington - Discharge Diagnosis(es) (1) Proctitis Current Visit: Yes Status: Acute (2) Dehydration Current Visit: Yes Status: Acute Priority: High (3) Diarrhea Current Visit: Yes Status: Acute (4) History of laparoscopic cholecystectomy Current Visit: No Status: Acute (5) Multiple myeloma Current Visit: No Status: Chronic Priority: High Hospital Course: This is a discharge summary on a 59-year-old white male who was admitted for significant diarrhea. Colonoscopy was found to have significant proctitis. A d ay or 2 later, the patient ended up having revision of laparoscopic banding in the office was removed. After 48 hours of postoperative care the patient was stabilized tolerating diet and minimal pain. Unfortunately, the patient is being treated for multiple myeloma and has an underlying history of diabetes but he is now stable for discharge once cleared by general surgery. Follow-up with me in 3 to 7 days. Patient Condition at Discharge: Stable Plan - Discharge Summary Discharge Rx Participant: No New Discharge Prescriptions: New Colchicine [Colcrys] 0.6 mg PO BID #60 each cefuroxime axetiL [Ceftin] 500 mg PO BID #14 tab Magnesium Oxide [Mag-Ox] 400 mg PO TID #90 tab Famotidine [Pepcid] 20 mg PO BID #60 tab Cholestyramine (with Sugar) [Questran Packet] 4 gm PO TID BETWEEN MEALS #21 packet Continue PARoxetine HCL [Paxil] 40 mg PO DAILY HYDROcodone/APAP 10-325MG [[place] 10-325] 1 tab PO QID traZODone HCL [Desyrel] 100 mg PO HS ALPRAZolam [Xanax] 0.5 mg PO HS amLODIPine [Norvasc] 10 mg PO DAILY Omeprazole [PriLOSEC] 20 mg PO DAILY Tirzepatide [Mounjaro] 5 mg SQ SA Ibuprofen [Motrin] 800 mg PO TID Empagliflozin/Metformin HCl [Synjardy 5-1,000 mg Tablet] 1 tab PO BID Nebivolol [Bystolic] 5 mg PO DAILY Losartan [Cozaar] 50 mg PO DAILY Discharge Medication List PARoxetine HCL [Paxil] 40 mg PO DAILY 04/29/14 [History] HYDROcodone/APAP 10-325MG [[place] 10-325] 1 tab PO QID 08/24/16 [History] ALPRAZolam [Xanax] 0.5 mg PO HS 08/15/24 [History] Ibuprofen [Motrin] 800 mg PO TID 08/15/24 [History] traZODone HCL [Desyrel] 100 mg PO HS 08/15/24 [History] Empagliflozin/Metformin HCl [Synjardy 5-1,000 mg Tablet] 1 tab PO BID 02/07/25 [History] Nebivolol [Bystolic] 5 mg PO DAILY 02/07/25 [History] amLODIPine [Norvasc] 10 mg PO DAILY 02/07/25 [History] Losartan [Cozaar] 50 mg PO DAILY 03/23/25 [History] Omeprazole [PriLOSEC] 20 mg PO DAILY 03/23/25 [History] Tirzepatide [Mounjaro] 5 mg SQ SA 03/31/25 [History] Cholestyramine (with Sugar) [Questran Packet] 4 gm PO TID BETWEEN MEALS #21 packet 04/07/25 [Rx] Colchicine [Colcrys] 0.6 mg PO BID #60 each 04/07/25 [Rx] Famotidine [Pepcid] 20 mg PO BID #60 tab 04/07/25 [Rx] Magnesium Oxide [Mag-Ox] 400 mg PO TID #90 tab 04/07/25 [Rx] cefuroxime axetiL [Ceftin] 500 mg PO BID #14 tab 04/07/25 [Rx] Follow up Appointment(s)/Referral(s): Peerz Pennington MD [Primary Care Provider] - 1-2 days [place], [place] [NON-STAFF] - 04/10/25 9:30 am
[2025-04-07 08:35] LABS: ALT 17 U/L (10-49); AST 11 U/L (14-35); Albumin 3.2 g/dL (3.8-4.9); Alkaline Phosphatase 93 U/L (41-126); BUN/Creat Ratio 12.57 Ratio (12.00-20.00); Blood Urea Nitrogen 8.8 mg/dL (9.0-27.0); Calcium 7.9 mg/dL (8.7-10.3); Carbon Dioxide 23.4 mmol/L (21.6-31.8); Chloride 109 mmol/L (96-109); Glucose 107 mg/dL (70-110); Potassium 3.4 mmol/L (3.5-5.5); Sodium 142 mmol/L (135-145); Total Bilirubin 0.2 mg/dL (0.3-1.2); Total Protein 5.2 g/dL (6.2-8.2)
[2025-04-07 12:16] LABS: Glucose,Whole Blood 138 mg/dL (70-110)
--- NOTE | 2025-04-07 12:43 | P.PN ---
Subjective Progress Note Date: 04/07/25 SURGICAL PROGRESS NOTE CHIEF COMPLAINT: Diarrhea HISTORY OF PRESENT ILLNESS: Patient is postop day#3 status post lap band removal. Pain is controlled. Denies any nausea or vomiting. Does complain of constipation. He is having a lot of flatus. Afebrile. Patient has been refusing the Questran due to his constipation. PHYSICAL EXAM: VITAL SIGNS: Reviewed. GENERAL: Well-developed in no acute distress. ABDOMEN: Soft. Nondistended. Mild tenderness at incision sites. Incision sites clean dry and intact. NEUROLOGIC: Alert and oriented. Cranial nerves II through XII grossly intact. ASSESSMENT: 1. Diarrhea status post colonoscopy revealing proctitis and diverticulosis 2. Status post lap band removal for dysphagia PLAN: - Patient now complaining of constipation. Reports been a few days since his last bowel movement and would like a stool softener. - Continue regular diet -Okay to discharge from surgical standpoint - Recommend to hold on restarting the Mounjaro until patient is feeling better Physician Collective Bargaining Specialist note has been reviewed by physician. Signing provider agrees with the documented findings, assessment, and plan of care. Objective - Vital Signs Vital signs: Vital Signs Temp 98.6 F 04/07/25 07:42 Pulse 77 04/07/25 07:42 Resp 17 04/07/25 07:42 BP 153/76 04/07/25 07:42 Pulse Ox 95 04/07/25 07:42 FiO2 Intake & Output 04/06/25 04/07/25 04/07/25 18:59 06:59 18:59 Intake Total 3480 Output Total 400 Balance 3480 -400 Weight 131.995 kg Intake: Oral 3480 Output: Urine 400 Other: # Voids 6 450 - Labs CBC & Chem 7: 04/07/25 05:36 04/07/25 05:36 Labs: Abnormal Lab Results - Last 24 Hours (Table) 04/06/25 04/06/25 04/07/25 Range/Units 17:00 20:06 05:36 RBC 3.10 L (4.40-5.60) X 10*6/uL Hgb 8.1 L (13.0-17.0) g/dL Hct 25.3 L (39.6-50.0) % MCH 26.1 L (27.0-32.0) pg RDW 15.1 H (11.5-14.5) % Plt Count 97 L (140-440) X 10*3/uL Potassium (3.5-5.5) mmol/L BUN (9.0-27.0) mg/dL POC Glucose (mg/dL) 133 H 119 H (70-110) mg/dL Calcium (8.7-10.3) mg/dL Total Bilirubin (0.3-1.2) mg/dL AST (14-35) U/L Total Protein (6.2-8.2) g/dL Albumin (3.8-4.9) g/dL 04/07/25 04/07/25 04/07/25 Range/Units 05:36 06:59 12:05 RBC (4.40-5.60) X 10*6/uL Hgb (13.0-17.0) g/dL Hct (39.6-50.0) % MCH (27.0-32.0) pg RDW (11.5-14.5) % Plt Count (140-440) X 10*3/uL Potassium 3.4 L (3.5-5.5) mmol/L BUN 8.8 L (9.0-27.0) mg/dL POC Glucose (mg/dL) 115 H 138 H (70-110) mg/dL Calcium 7.9 L (8.7-10.3) mg/dL Total Bilirubin 0.2 L (0.3-1.2) mg/dL AST 11 L (14-35) U/L Total Protein 5.2 L (6.2-8.2) g/dL Albumin 3.2 L (3.8-4.9) g/dL Microbiology - Last 24 Hours (Table) 04/03/25 16:21 Blood Culture - Preliminary Blood
[2025-04-07 12:56] VITALS: BP 132/74; PULSE 78; RESP 16; TEMP 98.4
== END 2025-04-07 15:05 | disposition home health service (06) | DRG 326 ==
LOC: EC 14:24 → 5NMEDONC 16:51
PROVIDERS: ADMIT Family Medicine; ATTEND Family Medicine
PROC: 0DBP8ZX Excision of Rectum, Via Natural or Artificial Opening Endoscopic, Diagnostic (ICD-10-PCS; principal; 2025-04-03 08:35)
PROC: 0DP64CZ Removal of Extraluminal Device from Stomach, Percutaneous Endoscopic Approach (ICD-10-PCS; 2025-04-04)
DX: K62.89 Other specified diseases of anus and rectum (principal); J18.9 Pneumonia, unspecified organism; C90.00 Multiple myeloma not having achieved remission; E87.20 Acidosis, unspecified; K91.5 Postcholecystectomy syndrome; E83.51 Hypocalcemia; E86.0 Dehydration; E11.9 Type 2 diabetes mellitus without complications; J44.9 Chronic obstructive pulmonary disease, unspecified; I10 Essential (primary) hypertension; E66.9 Obesity, unspecified; N17.9 Acute kidney failure, unspecified; K57.30 Diverticulosis of large intestine without perforation or abscess without bleeding; R53.1 Weakness; Z68.22 Body mass index [BMI] 22.0-22.9, adult; R13.10 Dysphagia, unspecified; M10.9 Gout, unspecified; G89.29 Other chronic pain; M54.9 Dorsalgia, unspecified; I25.2 Old myocardial infarction; R50.82 Postprocedural fever; E83.42 Hypomagnesemia; K21.9 Gastro-esophageal reflux disease without esophagitis; M19.90 Unspecified osteoarthritis, unspecified site; Z90.49 Acquired absence of other specified parts of digestive tract; Z88.8 Allergy status to other drugs, medicaments and biological substances; Z88.5 Allergy status to narcotic agent; Z98.84 Bariatric surgery status; Z79.85 Long-term (current) use of injectable non-insulin antidiabetic drugs; Z79.84 Long term (current) use of oral hypoglycemic drugs; Z86.73 Personal history of transient ischemic attack (TIA), and cerebral infarction without residual deficits
CPT/HCPCS: 36415; 45378; 71045; 71046; 71275; 73521; 80053; 81003; 83036; 83605; 83735; 84484; 85025; 85027; 85379; 85610; 85730; 87040; 88305; 94760; 96365; 96366; 99285

== ENCOUNTER 2025-04-12 19:03 | Observation (INO) | payer MEDICARE ==
--- NOTE | 2025-04-12 19:22 | ED ---
Chest Pain HPI - General Source: patient, RN notes reviewed Mode of arrival: wheelchair Limitations: no limitations <Mary Reyes - Last Filed: 04/12/25 19:21> - General Source: patient, RN notes reviewed <Justina Prather - Last Filed: 04/12/25 22:45> - General Chief Complaint: Chest Pain Stated Complaint: Chest Pain/SOB Time Seen by Provider: 04/12/25 19:21 - History of Present Illness Initial Comments: Quick note: 59-year-old male presented the ER for evaluation of shortness of breath. Patient admits to worsening shortness of breath and exertional dyspnea over the last day. He also is reporting a centralized chest pain. He does have a history of NC. Patient also admits to dizziness, cough and recent chills. He denies a history of DVT/PEs, CHF or COPD. (Mary Reyes) 59-year-old male presenting for shortness of breath x 2 days with associated chest pain. States he has been experiencing worsening shortness of breath with exertion. Also reports an intermittent substernal sharp chest pain that radiates to the neck. Rates the pain at about a 4 right now. He was recently hospitalized and discharged 5 days ago as he states he had his Lap-Band removed. Denies blood thinners. History of multiple myeloma, COPD, diabetes, hypertension, and CAD. Also states he has had diarrhea 2-3 times a day since his cholecystectomy. (Justina Prather) - Related Data Home Medications Medication Instructions Recorded Confirmed PARoxetine HCL [Paxil] 40 mg PO DAILY 04/29/14 03/31/25 HYDROcodone/APAP 10-325MG [[place] 1 tab PO QID 08/24/16 03/31/25 10-325] ALPRAZolam [Xanax] 0.5 mg PO HS 08/15/24 03/31/25 Ibuprofen [Motrin] 800 mg PO TID 08/15/24 03/31/25 traZODone HCL [Desyrel] 100 mg PO HS 08/15/24 03/31/25 Empagliflozin/Metformin HCl 1 tab PO BID 02/07/25 03/31/25 [Synjardy 5-1,000 mg Tablet] Nebivolol [Bystolic] 5 mg PO DAILY 02/07/25 03/31/25 amLODIPine [Norvasc] 10 mg PO DAILY 02/07/25 03/31/25 Losartan [Cozaar] 50 mg PO DAILY 03/23/25 03/31/25 Omeprazole [PriLOSEC] 20 mg PO DAILY 03/23/25 03/31/25 Tirzepatide [Mounjaro] 5 mg SQ SA 03/31/25 03/31/25 Previous Rx's Medication Instructions Recorded Cholestyramine (with Sugar) 4 gm PO TID BETWEEN MEALS #21 04/07/25 [Questran Packet] packet Colchicine [Colcrys] 0.6 mg PO BID #60 each 04/07/25 Docusate [Colace] 100 mg PO DAILY PRN #7 capsule 04/07/25 Famotidine [Pepcid] 20 mg PO BID #60 tab 04/07/25 Magnesium Oxide [Mag-Ox] 400 mg PO TID #90 tab 04/07/25 cefuroxime axetiL [Ceftin] 500 mg PO BID #14 tab 04/07/25 Allergies Allergy/AdvReac Type Severity Reaction Status Date / Time lisinopril Allergy Rash/Hives Verified 03/31/25 17:36 hydromorphone HCl AdvReac Hallucinati Verified 03/31/25 17:36 [From Dilaudid] ons meperidine HCl [From Demerol] AdvReac Hallucinati Verified 03/31/25 17:36 ons Review of Systems ROS Other: All systems not noted in ROS Statement are negative. <Mary Reyes - Last Filed: 04/12/25 19:21> ROS Other: All systems not noted in ROS Statement are negative. <Justina Prather - Last Filed: 04/12/25 22:45> ROS Statement: Those systems with pertinent positive or pertinent negative responses have been documented in the HPI. EKG Findings - EKG Results: EKG: interpreted by ERMD (EKG reveals sinus tachycardia with left axis deviation. Ventricular rate 104 bpm, TN interval 179, QRS duration 112, QT/QTc 337/397) <Justina Prather - Last Filed: 04/12/25 22:45> Past Medical History Past Medical History: Cancer, Chest Pain / Angina, COPD, CVA/TIA, Diabetes Mellitus, GERD/Reflux, Hearing Disorder / Deafness, Hypertension, Myocardial Infarction (NC), Osteoarthritis (OA) Additional Past Medical History / Comment(s): Pt reports diarrhea r/t mounjaro shot & loss of appetite. hx gout, chronic back, hip, & knee pain. multiple [id number] cell transplant. [id number] walk-resolved. SOB with activity. wears hearing aids. Last Myocardial Infarction Date:: 02/04/21 History of Any Multi-Drug Resistant Organisms: None Reported Past Surgical History: Bariatric Surgery, Cholecystectomy, Heart Catheterization, Joint Replacement, Orthopedic Surgery Additional Past Surgical History / Comment(s): thymus gland removal, HIP LT SURGERY replacement., lap band by boutt Past Anesthesia/Blood Transfusion Reactions: No Reported Reaction Past Psychological History: Depression Smoking Status: Former smoker Past Alcohol Use History: None Reported Past Drug Use History: None Reported - Past Family History Brother(s) Family Medical History: Coronary Artery Disease (CAD) Additional Family Medical History / Comment(s): pt states brother had hx blood clot- unsure DVT or PE. <Mary Reyes - Last Filed: 04/12/25 19:21> General Exam Limitations: no limitations <Mary Reyes - Last Filed: 04/12/25 19:21> General appearance: alert, in no apparent distress Head exam: Present: atraumatic, normocephalic, normal inspection Eye exam: Present: normal appearance, PERRL, EOMI. Absent: scleral icterus, conjunctival injection, periorbital swelling Respiratory exam: Present: normal lung sounds bilaterally. Absent: respiratory distress, wheezes, rales, rhonchi, stridor Cardiovascular Exam: Present: normal rhythm, tachycardia, normal heart sounds. Absent: systolic murmur, diastolic murmur, rubs, gallop, clicks GI/Abdominal exam: Present: soft, normal bowel sounds, other (Multiple incision sites present over abdomen, mild erythema surrounding however overall appear to be well healing, no active drainage). Absent: distended, tenderness, guarding, rebound, rigid Neurological exam: Present: alert, oriented X3 Psychiatric exam: Present: normal affect, normal mood Skin exam: Present: warm, dry, intact, normal color. Absent: rash <Justina Prather - Last Filed: 04/12/25 22:45> - General Exam Comments Initial Comments: Visual Physical Exam Vital signs reviewed General: Well-appearing, nontoxic, no acute distress. Head: Normocephalic, atraumatic Eyes: PERRLA, EOMI ENT: Airway patent Chest: Nonlabored breathing Skin: No visual rash, normal skin tone Neuro: Alert and oriented 3 Musculoskeletal: No gross abnormalities (Mary Reyes) Course Vital Signs 04/12/25 04/12/25 04/12/25 19:05 20:52 20:55 Temperature 98.3 F Pulse Rate 113 H 84 Pulse Rate [ 86 Bilateral Supine Radial] Respiratory 20 20 Rate Blood Pressure 127/85 138/66 O2 Sat by Pulse 99 99 Oximetry Chest Pain MDM <Mary Reyes - Last Filed: 04/12/25 19:21> <Justina Prather - Last Filed: 04/12/25 22:45> - LEOBARDO I performed the quick note portion of this chart. Electronically signed by Mary Reyes PA-C (Mary Reyes) Was pt. sent in by a medical professional or institution (NEREIDA Emanuel, DISTRIBUTION DISTRICT SUPERVISOR, urgent care, hospital, or correction...) When possible be specific @ -No Did you speak to anyone other than the patient for history (EMS, parent, family, police, friend...)? What history was obtained from this source @ -No Did you review nursing and triage notes (agree or disagree)? Why? @ -I reviewed and agree with nursing and triage notes Were old charts reviewed (outside hosp., previous admission, EMS record, old EKG, old radiological studies, urgent care reports/EKG's, correction records)? Report findings @ -No old charts were reviewed Differential Diagnosis (chest pain, altered mental status, abdominal pain women, abdominal pain men, vaginal bleeding, weakness, fever, dyspnea, syncope, headache, dizziness, GI bleed, back pain, seizure, CVA, palpatations, mental health, musculoskeletal)? @ -Differential Dyspnea: Coronary syndrome, arrhythmia, tamponade, asthma, COPD, pulmonary embolism, pneumonia, pneumothorax, pulmonary effusion, anaphylaxis, diabetic ketoacidosis, flailed chest, pulmonary contusion, diaphragmatic rupture, anemia, neuromuscular, this is not meant to be an all-inclusive list. EKG interpreted by me (3pts min.). @ -As above X-rays interpreted by me (1pt min.). @ -Chest x-ray interpreted by me reveals no acute process CT interpreted by me (1pt min.). @ -None done U/S interpreted by me (1pt. min.). @ -None done What testing was considered but not performed or refused? (CT, X-rays, U/S, labs)? Why? @ -None What meds were considered but not given or refused? Why? @ -None Did you discuss the management of the patient with other professionals (professionals i.e. , PA, DISTRIBUTION DISTRICT SUPERVISOR, lab, RT, psych nurse, home health care social worker, behavioral intervention specialist, teacher, chief growth officer, case consultant)? Give summary @ -I spoke with Dr. Pennington who accepts admission for chest pain rule out ACS Was smoking cessation discussed for >3mins.? @ -No Was critical care preformed (if so, how long)? @ -No Were there social determinants of health that impacted care today? How? (Homelessness, low income, unemployed, alcoholism, drug addiction, transportation, low edu. Level, literacy, decrease access to med. care, long term, rehab)? @ -No Was there de-escalation of care discussed even if they declined (Discuss DNR or withdrawal of care, Hospice)? DNR status @ -No What co-morbidities impacted this encounter? (DM, HTN, Smoking, COPD, CAD, Cancer, CVA, ARF, Chemo, Hep., AIDS, mental health diagnosis, sleep apnea, morbid obesity)? @ -None Was patient admitted / discharged? Hospital course, mention meds given and route, prescriptions, significant lab abnormalities, going to OR and other pertinent info. @ -Admitted. 59-year-old male presenting for exertional dyspnea and chest pain x 2 days. Patient was recently hospitalized and discharged 5 days ago for metabolic acidosis secondary to diarrhea and hypomagnesemia. Patient is tachycardic, otherwise vital signs within acceptable limits. EKG reveals sinus tachycardia with no acute ST changes. Lab work remarkable for metabolic acidosis with anion gap of 17 likely secondary to diarrhea, magnesium 1.4, troponin 0.014 at baseline. D-dimer negative. Heart score is moderate at 4 points. Patient will be admitted to medicine with cardiology consult to rule out ACS. Serial troponins and magnesium ordered. Case was discussed with my ED attending Dr. Mistry. Undiagnosed new problem with uncertain prognosis? @ -No Drug Therapy requiring intensive monitoring for toxicity (Heparin, Nitro, Insulin, Cardizem)? @ -No Were any procedures done? @ -No Diagnosis/symptom? @ -Chest pain Acute, or Chronic, or Acute on Chronic? @ -Acute Uncomplicated (without systemic symptoms) or Complicated (systemic symptoms)? @ -Complicated Side effects of treatment? @ -No Exacerbation, Progression, or Severe Exacerbation? @ -No Poses a threat to life or bodily function? How? (Chest pain, USA, NC, pneumonia, PE, COPD, DKA, ARF, appy, cholecystitis, CVA, Diverticulitis, Homicidal, Suicidal, threat to staff... and all critical care pts) @ -Yes (Justina Prather) Disposition <Mary Reyes - Last Filed: 04/12/25 19:21> Time of Disposition: 22:42 <Justina Prather - Last Filed: 04/12/25 22:45> Clinical Impression: Chest pain Disposition: ADMITTED IP TO THIS HOSP Referrals: Perez Pennington MD [Primary Care Provider] - 1-2 days
[2025-04-12 19:30] LABS: Basophils # (A) 0.03 10*3/uL (0.00-0.10); Basophils % (A) 0.4 %; Eosinophils # (A) 0.53 10*3/uL (0.04-0.35); Eosinophils % (A) 6.5 %; HCT 33.3 % (39.6-50.0); HGB 10.9 g/dL (13.0-17.0); Lymphocytes # (A) 2.24 10*3/uL (0.90-5.00); Lymphocytes % (A) 27.6 %; MCH 26.3 pg (27.0-32.0); MCHC 32.7 g/dL (32.0-37.0); MCV 80.4 fL (80.0-97.0); Mean Platelet Volume 10.3 fL (9.5-12.2); Monocytes % (A) 4.9 %; Neutrophils # (A) 4.87 10*3/uL (1.80-7.70); Neutrophils % (A) 60.1 %; RBC 4.14 10*6/uL (4.40-5.60); RDW 14.6 % (11.5-14.5); WBC 8.11 10*3/uL (4.50-10.00)
[2025-04-12 19:40] LABS: Platelet Count 149 10*3/uL (140-440)
[2025-04-12 19:49] LABS: Partial Thromboplastin Time 27.5 sec (22.0-30.0); Prothrombin Time 11.4 sec (10.0-12.5)
[2025-04-12 19:51] LABS: ALT 20 U/L (4-49); AST 22 U/L (17-59); African American GFR (CKD) >90 (>60 ml/min/1.73 sqM); Albumin 4.1 g/dL (3.5-5.0); Alkaline Phosphatase 127 U/L (38-126); Anion Gap 17 mmol/L; Blood Urea Nitrogen 8 mg/dL (9-20); Calcium 9.7 mg/dL (8.4-10.2); Carbon Dioxide 20 mmol/L (22-30); Chloride 101 mmol/L (98-107); Glucose 98 mg/dL (74-99); Magnesium 1.4 mg/dL (1.6-2.3); Non-African American GFR(CKD) 81 (>60 ml/min/1.73 sqM); Potassium 3.4 mmol/L (3.5-5.1); Sodium 138 mmol/L (137-145); Total Bilirubin 0.6 mg/dL (0.2-1.3); Total Protein 6.9 g/dL (6.3-8.2)
[2025-04-12] MEDS: ACETAMINOPHEN TAB 500 MG TAB PO STA (21:12)
[2025-04-12] MEDS: SODIUM CHLORIDE 0.9% 1,000 ML IV STA (21:15)
[2025-04-12] MEDS ORDERED: NALOXONE 0.4 MG/ML 1 ML VIAL IV PRN (22:37)
[2025-04-12] MEDS ORDERED: ONDANSETRON 4 MG/2 ML VIAL IVP PRN (22:37)
[2025-04-12] MEDS ORDERED: ACETAMINOPHEN TAB 325 MG TAB PO PRN (22:37)
[2025-04-12] MEDS: MAGNESIUM SULFATE-D5W PMX 1 GM in DEXTROSE/WATER 1 100ML.BAG IVPB SCH (22:42)
--- NOTE | 2025-04-12 22:49 | XR ---
EXAMINATION TYPE: XR chest 2V DATE OF EXAM: 04/12/2025 7:37 PM CLINICAL INDICATION:Male, 59 years old with history of Chest Pain; [facility] COMPARISON: Chest radiographs from TECHNIQUE: XR chest 2V Frontal view of the chest. FINDINGS: Left midlung atelectasis. No pleural effusions or pneumothorax. Cardiac silhouette is unremarkable. S ternotomy wires are present. No acute osseous abnormalities. IMPRESSION: No acute cardiopulmonary disease/process. Left mid lung atelectasis. [facility], , 04/12/2025 10:47 PM
[2025-04-12] MEDS: ASPIRIN 81 MG PO STA (23:28)
[2025-04-13] MEDS ORDERED: DOBUTamine DRIP for NUC MED 500 MG/250 ML BAG IV ONE (08:00)
[2025-04-13] MEDS ORDERED: DOBUTamine DRIP for NUC MED 500 MG in DEXTROSE/WATER 1 250ML.BAG IV PRN (08:32)
[2025-04-13] MEDS ORDERED: DOCUSATE 100 MG CAP PO PRN (08:55)
[2025-04-13] MEDS ORDERED: Potassium Replacement Protocol 1 EACH MISC MISCELLANE PRN (08:58)
[2025-04-13] MEDS ORDERED: Magnesium Replacement Protocol 1 EACH MISC MISCELLANE PRN (08:58)
--- NOTE | 2025-04-13 09:03 | P.HPIM ---
History of Present Illness H&P Date: 04/13/25 This is a 59-year-old male who presented to the emergency department with complaints of shortness of breath, exertional dyspnea, and chest pain for the last 2 days. Patient reports chest pain is substernal and sharp and radiates to the neck. Patient recently hospitalized and discharged last week after a colonoscopy and lap band removal. Patient seen this morning resting comfortably on stretcher. He denies any current chest pain. Cardiology has been on consult and have ordered an echo and a stress test. Further medical history as noted below. Review of Systems Constitutional: Reports weakness, Denies chills, Denies fever Cardiovascular: Reports chest pain, Reports dyspnea on exertion Respiratory: Reports dyspnea, Denies cough Gastrointestinal: Denies abdominal pain, Denies nausea, Denies vomiting Musculoskeletal: Denies arm numbness/tingling, Denies leg numbness/tingling Neurological: Reports weakness, Denies headaches Past Medical History Past Medical History: Cancer, Chest Pain / Angina, COPD, CVA/TIA, Diabetes Mellitus, GERD/Reflux, Hearing Disorder / Deafness, Hypertension, Myocardial Infarction (ND), Osteoarthritis (OA) Additional Past Medical History / Comment(s): Pt reports diarrhea r/t mounjaro shot & loss of appetite. hx gout, chronic back, hip, & knee pain. multiple sfeubqg-fdfld-nttt cell transplant. [id number] walk-resolved. SOB with activity. wears hearing aids. Last Myocardial Infarction Date:: 02/04/21 History of Any Multi-Drug Resistant Organisms: None Reported Past Surgical History: Bariatric Surgery, Cholecystectomy, Heart Catheterization, Joint Replacement, Orthopedic Surgery Additional Past Surgical History / Comment(s): thymus gland removal, HIP LT SURGERY replacement., lap band by boutt Past Anesthesia/Blood Transfusion Reactions: No Reported Reaction Past Psychological History: Depression Smoking Status: Former smoker Past Alcohol Use History: None Reported Past Drug Use History: None Reported - Past Family History Brother(s) Family Medical History: Coronary Artery Disease (CAD) Additional Family Medical History / Comment(s): pt states brother had hx blood clot- unsure DVT or PE. Medications and Allergies Home Medications Medication Instructions Recorded Confirmed Type PARoxetine HCL [Paxil] 40 mg PO DAILY 04/29/14 03/31/25 History HYDROcodone/APAP 10-325MG [[place] 1 tab PO QID 08/24/16 03/31/25 History 10-325] ALPRAZolam [Xanax] 0.5 mg PO HS 08/15/24 03/31/25 History Ibuprofen [Motrin] 800 mg PO TID 08/15/24 03/31/25 History traZODone HCL [Desyrel] 100 mg PO HS 08/15/24 03/31/25 History Empagliflozin/Metformin HCl 1 tab PO BID 02/07/25 03/31/25 History [Synjardy 5-1,000 mg Tablet] Nebivolol [Bystolic] 5 mg PO DAILY 02/07/25 03/31/25 History amLODIPine [Norvasc] 10 mg PO DAILY 02/07/25 03/31/25 History Losartan [Cozaar] 50 mg PO DAILY 03/23/25 03/31/25 History Omeprazole [PriLOSEC] 20 mg PO DAILY 03/23/25 03/31/25 History Tirzepatide [Mounjaro] 5 mg SQ SA 03/31/25 03/31/25 History Cholestyramine (with Sugar) 4 gm PO TID BETWEEN MEALS #21 04/07/25 Rx [Questran Packet] packet Colchicine [Colcrys] 0.6 mg PO BID #60 each 04/07/25 Rx Docusate [Colace] 100 mg PO DAILY PRN #7 capsule 04/07/25 Rx Famotidine [Pepcid] 20 mg PO BID #60 tab 04/07/25 Rx Magnesium Oxide [Mag-Ox] 400 mg PO TID #90 tab 04/07/25 Rx cefuroxime axetiL [Ceftin] 500 mg PO BID #14 tab 04/07/25 Rx Allergies Allergy/AdvReac Type Severity Reaction Status Date / Time lisinopril Allergy Rash/Hives Verified 03/31/25 17:36 hydromorphone HCl AdvReac Hallucinati Verified 03/31/25 17:36 [From Dilaudid] ons meperidine HCl [From Demerol] AdvReac Hallucinati Verified 03/31/25 17:36 ons Physical Exam Vitals: Vital Signs Temp Pulse Pulse Resp BP Pulse Ox 04/13/25 06:00 98.1 F 75 18 138/80 96 04/13/25 03:00 73 18 126/69 96 04/13/25 01:46 74 18 126/72 97 04/12/25 23:52 79 18 108/69 98 04/12/25 20:55 84 20 138/66 99 04/12/25 20:52 86 04/12/25 19:05 98.3 F 113 H 20 127/85 99 Intake and Output 04/12/25 04/13/25 04/13/25 22:59 06:59 14:59 Other: Weight 131.088 kg - Constitutional General appearance: cooperative, no acute distress - EENT Eyes: PERRLA - Neck Neck: no lymphadenopathy, normal ROM, no rigidity - Respiratory Respiratory: bilateral: diminished - Cardiovascular Heart sounds: normal: S1, S2 - Gastrointestinal General gastrointestinal: soft, no tenderness - Integumentary Integumentary: normal, normal turgor - Psychiatric Psychiatric: A&O x's 3 Results CBC & Chem 7: 04/12/25 19:10 04/12/25 19:10 Labs: Abnormal Lab Results - Last 24 Hours (Table) 04/12/25 04/12/25 Range/Units 19:10 19:10 RBC 4.14 L (4.40-5.60) 10*6/uL Hgb 10.9 L (13.0-17.0) g/dL Hct 33.3 L (39.6-50.0) % MCH 26.3 L (27.0-32.0) pg Eosinophils # 0.53 H (0.04-0.35) 10*3/uL Potassium 3.4 L (3.5-5.1) mmol/L Carbon Dioxide 20 L (22-30) mmol/L BUN 8 L (9-20) mg/dL Magnesium 1.4 L (1.6-2.3) mg/dL Alkaline Phosphatase 127 H (38-126) U/L Assessment and Plan (1) Chest pain Current Visit: Yes Status: Acute Code(s): R07.9 - CHEST PAIN, UNSPECIFIED SNOMED Code(s): 70867813 (2) Depression Current Visit: No Status: Acute Code(s): F32.A - DEPRESSION, UNSPECIFIED SNOMED Code(s): 78963484 (3) Diabetes Current Visit: No Status: Acute Code(s): E11.9 - TYPE 2 DIABETES MELLITUS WITHOUT COMPLICATIONS SNOMED Code(s): 99451811 (4) History of laparoscopic cholecystectomy Current Visit: No Status: Acute Code(s): Z90.49 - ACQUIRED ABSENCE OF OTHER SPECIFIED PARTS OF DIGESTIVE TRACT SNOMED Code(s): 950050946 (5) Hypertension Current Visit: No Status: Acute Code(s): I10 - ESSENTIAL (PRIMARY) HYPERTENSION SNOMED Code(s): 90518692 (6) Multiple myeloma Current Visit: No Status: Chronic Priority: High Code(s): C90.00 - MULTIP LE MYELOMA NOT HAVING ACHIEVED REMISSION SNOMED Code(s): 772972739 Plan: Home medications reconciled. Await workup from cardiology and results. Check CBC and CMP and magnesium in the morning. Patient seen and evaluated by nurse practitioner, physician in agreement with plan.
--- NOTE | 2025-04-13 09:55 | P.CRDCN ---
History of Present Illness Consult date: 04/13/25 Consult reason: chest pain History of present illness: This is this is a 59-year-old male patient of Dr. Birgit Ricks with past medical history of hyperlipidemia, hypertension, dilated cardiomyopathy, TIA in 2012, multiple myeloma status post chemotherapy and stem cell transplant, morbid obesity status post lap band. We have been asked to evaluate patient for chest pain. Patient states he was walking to his van and he developed significant pina rtness of breath pounding in his chest like he has never had before. He states he did have a little bit of chest pain in the midsection that lasted about 15 minutes or less. He has never had chest pain in the past. He denies lower extremity edema. No PND. He is normally not active due to generalized osteoarthritis. Patient denies history of COPD or asthma. No blood in his urine or stool. No seizure activity. Blood pressure 138/80, heart rate 75, pulse ox 96% on room air. Patient is status post magnesium replacement and 1 L of IV fluid bolus. Patient is seen today in the emergency center waiting for bed on the cardiac stepdown unit. Discussed with patient recommendations for stress test and echocardiogram and patient is agreeable to move forward with this today. -EKG: Sinus rhythm with left axis deviation, first-degree block. -Chest x-ray: -Laboratory studies: Troponin negative x 3. WBC 8.1, hemoglobin 10.9, D-dimer 0.17. Potassium 3.4, BUN 8 creatinine 1.0. Magnesium 1.4. -Home cardiac medications: Medications have not been confirmed at the time of this dictation. -Cardiac catheterization performed in 2020 revealed no coronary artery disease. -Echocardiogram performed 09/2024 revealed EF 45 to 50%, mild TR. Review Of Systems: At the time of my exam: CONSTITUTIONAL: Denies fever or chills. HEENT: Denies blurred vision, vision changes, or eye pain. Denies hemoptysis CARDIOVASCULAR: Denies chest pain. Denies orthopnea. Denies PND. Denies palpitations RESPIRATORY: Denies shortness of breath. GASTROINTESTINAL: Denies abdominal pain. Denies nausea or vomiting. HEMATOLOGIC: Denies bleeding disorders. GENITOURINARY: Denies any blood in urine. SKIN: Denies puritis. Denies rash. Physical examination: Gen: This is really obese 59-year-old male in no acute distress VS: reviewed HEENT: Head is atraumatic, normocephalic. Pupils equal, round. Sclerae is anicteric. NECK: Supple. No JVD. LUNGS: Clear to auscultation. No wheezes or rhonchi. No intercostal ret ractions. HEART: Regular rate and rhythm. Soft systolic murmur. ABDOMEN: Soft No tenderness. EXTREMITIES: No pedal edema. No calf tenderness. NEUROLOGICAL: Patient is awake, alert and oriented x3. Assessment: Atypical chest pain, acute coronary syndrome ruled out Hypertension Hyperlipidemia Dilated cardiomyopathy History of TIA in 2012 Multiple myeloma status postchemotherapy and stem cell transplant Morbid obesity with BMI of 41 status post lap band with recent removal of lap band 1 week ago Plan: Discontinue amlodipine and Bystolic Start patient on losartan 25 mg daily Start patient on Coreg 6.25 mg twice daily to start following the stress test Schedule patient for dobutamine stress echo today Obtain 2-D echocardiogram and Doppler study to assess cardiac structure and function If stress test and echocardiogram are unremarkable, patient is cleared for discharge and may follow-up in the office with Dr. Birgit Ricks in 2 weeks. Thank you kindly for this consultation. Nurse practitioner note has been reviewed, I agree with documented findings and plan of care. Patient was seen and examined. Past Medical History Past Medical History: Cancer, Chest Pain / Angina, COPD, CVA/TIA, Diabetes Mellitus, GERD/Reflux, Hearing Disorder / Deafness, Hypertension, Myocardial Infarction ([place]), Osteoarthritis (OA) Additional Past Medical History / Comment(s): Pt reports diarrhea r/t mounjaro shot & loss of appetite. hx gout, chronic back, hip, & knee pain. multiple etlfgkf-nfhfi-agsw cell transplant. [id number] walk-resolved. SOB with activity. wears hearing aids. Last Myocardial Infarction Date:: 02/04/21 History of Any Multi-Drug Resistant Organisms: None Reported Past Surgical History: Bariatric Surgery, Cholecystectomy, Heart Catheter ization, Joint Replacement, Orthopedic Surgery Additional Past Surgical History / Comment(s): thymus gland removal, HIP LT SURGERY replacement., lap band by boutt Past Anesthesia/Blood Transfusion Reactions: No Reported Reaction Past Psychological History: Depression Smoking Status: Former smoker Past Alcohol Use History: None Reported Past Drug Use History: None Reported - Past Family History Brother(s) Family Medical History: Coronary Artery Disease (CAD) Additional Family Medical History / Comment(s): pt states brother had hx blood clot- unsure DVT or PE. Medications and Allergies Home Medications Medication Instructions Recorded Confirmed Type PARoxetine HCL [Paxil] 40 mg PO DAILY 04/29/14 03/31/25 History HYDROcodone/APAP 10-325MG [[place] 1 tab PO QID 08/24/16 03/31/25 History 10-325] ALPRAZolam [Xanax] 0.5 mg PO HS 08/15/24 03/31/25 History Ibuprofen [Motrin] 800 mg PO TID 08/15/24 03/31/25 History traZODone HCL [Desyrel] 100 mg PO HS 08/15/24 03/31/25 History Empagliflozin/Metformin HCl 1 tab PO BID 02/07/25 03/31/25 History [Synjardy 5-1,000 mg Tablet] Nebivolol [Bystolic] 5 mg PO DAILY 02/07/25 03/31/25 History amLODIPine [Norvasc] 10 mg PO DAILY 02/07/25 03/31/25 History Losartan [Cozaar] 50 mg PO DAILY 03/23/25 03/31/25 History Omeprazole [PriLOSEC] 20 mg PO DAILY 03/23/25 03/31/25 History Tirzepatide [Mounjaro] 5 mg SQ SA 03/31/25 03/31/25 History Cholestyramine (with Sugar) 4 gm PO TID BETWEEN MEALS #21 04/07/25 Rx [Questran Packet] packet Colchicine [Colcrys] 0.6 mg PO BID #60 each 04/07/25 Rx Docusate [Colace] 100 mg PO DAILY PRN #7 capsule 04/07/25 Rx Famotidine [Pepcid] 20 mg PO BID #60 tab 04/07/25 Rx Magnesium Oxide [Mag-Ox] 400 mg PO TID #90 tab 04/07/25 Rx cefuroxime axetiL [Ceftin] 500 mg PO BID #14 tab 04/07/25 Rx Allergies Allergy/AdvReac Type Severity Reaction Status Date / Time lisinopril Allergy Rash/Hives Verified 03/31/25 17:36 hydromorphone HCl AdvReac Hallucinati Verified 03/31/25 17:36 [From Dilaudid] ons meperidine HCl [From Demerol] AdvReac Hallucinati Verified 03/31/25 17:36 ons Physical Exam Vitals: Vital Signs Temp Pulse Pulse Resp BP Pulse Ox 04/13/25 06:00 98.1 F 75 18 138/80 96 04/13/25 03:00 73 18 126/69 96 04/13/25 01:46 74 18 126/72 97 04/12/25 23:52 79 18 108/69 98 04/12/25 20:55 84 20 138/66 99 04/12/25 20:52 86 04/12/25 19:05 98.3 F 113 H 20 127/85 99 Intake and Output 04/12/25 04/13/25 04/13/25 22:59 06:59 14:59 Other: Weight 131.088 kg Results 04/12/25 19:10 04/12/25 19:10 Cardiac Enzymes 04/12/25 04/12/25 04/13/25 Range/Units 19:10 19:10 00:19 AST 22 (17-59) U/L Troponin I 0.014 0.013 (0.000-0.034) ng/mL 04/13/25 Range/Units 05:36 AST (17-59) U/L Troponin I 0.016 (0.000-0.034) ng/mL Coagulation 04/12/25 Range/Units 19:10 PT 11.4 (10.0-12.5) sec APTT 27.5 (22.0-30.0) sec CBC 04/12/25 Range/Units 19:10 WBC 8.11 (4.50-10.00) 10*3/uL RBC 4.14 L (4.40-5.60) 10*6/uL Hgb 10.9 L (13.0-17.0) g/dL Hct 33.3 L (39.6-50.0) % Plt Count 149 D (140-440) 10*3/uL Comprehensive Metabolic Panel 04/12/25 Range/Units 19:10 Sodium 138 (137-145) mmol/L Potassium 3.4 L (3.5-5.1) mmol/L Chloride 101 (98-107) mmol/L Carbon Dioxide 20 L (22-30) mmol/L BUN 8 L (9-20) mg/dL Creatinine 1.00 (0.66-1.25) mg/dL Glucose 98 (74-99) mg/dL Calcium 9.7 (8.4-10.2) mg/dL AST 22 (17-59) U/L ALT 20 (4-49) U/L Alkaline Phosphatase 127 H (38-126) U/L Total Protein 6.9 (6.3-8.2) g/dL Albumin 4.1 (3.5-5.0) g/dL Current Medications Generic Name Dose Route Start Last Admin Trade Name Freq PRN Reason Stop Dose Admin Acetaminophen 650 mg 04/12/25 22:37 Acetaminophen Tab 325 Mg Tab PO Q6HR PRN Mild Pain or Fever > 100.5 Naloxone HCl 0.2 mg 04/12/25 22:37 Naloxone 0.4 Mg/Ml 1 Ml Vial IV Q2M PRN Opioid Reversal Ondansetron HCl 4 mg 04/12/25 22:37 Ondansetron 4 Mg/2 Ml Vial IVP Q8HR PRN Nausea And Vomiting Intake and Output 04/12/25 04/13/25 04/13/25 22:59 06:59 14:59 Other: Weight 131.088 kg 04/12/25 19:10 04/12/25 19:10
[2025-04-13] MEDS: COLCHICINE 0.6 MG EACH PO SCH (11:13)
[2025-04-13] MEDS: FAMOTIDINE 20 MG TAB PO SCH (11:13)
[2025-04-13] MEDS: PARoxetine 20 MG TAB PO SCH (11:14)
[2025-04-13] MEDS: DAPAGLIFLOZIN PROPANEDIOL 5 MG TABLET PO SCH (11:14)
[2025-04-13] MEDS: metFORMIN 500 MG TAB PO SCH (11:14)
[2025-04-13] MEDS: MAGNESIUM OXIDE 400 MG TAB PO SCH (11:14)
[2025-04-13] MEDS: HYDROcodone/APAP 10-325MG 1 EACH TAB PO SCH (11:15)
[2025-04-13] MEDS: carvediloL 6.25 MG TAB PO SCH (11:15)
[2025-04-13] MEDS: LOSARTAN 25 MG TAB PO SCH (11:16)
[2025-04-13] MEDS: amLODIPine 10 MG TAB PO SCH (11:18)
[2025-04-13] MEDS: NEBIVOLOL 5 MG TAB PO SCH (11:18)
--- NOTE | 2025-04-13 12:20 | CA ---
Transthoracic Echo Report Name: Reid Chandler Age: 59 Gender: M : 1965 Exam Date: 04/13/2025 10:28 Exam Location: [facility] Ht (in): 70 Wt (lb): 289 Ordering Physician: Justina Prather Attending/Referring Phys: Cosmetic Dentist Drea Patiño RDCS Procedure CPT: Indications: chest pain, dyspnea Cardiac Hx: Technical Quality: Good Contrast 1: Total Dose (mL): Contrast 2: Total Dose (mL): MEASUREMENTS (Male / Female) Normal Values 2D ECHO LV Diastolic Diameter PLAX 4.3 cm 4.2 - 5.9 / 3.9 - 5.3 cm LV Systolic Diameter PLAX 3.8 cm IVS Diastolic Thickness 1.4 cm 0.6 - 1.0 / 0.6 - 0.9 cm LVPW Diastolic Thickness 1.5 cm 0.6 - 1.0 / 0.6 - 0.9 cm LV Relative Wall Thickness 0.7 RV Internal Dim ED PLAX 3.6 cm LA Systolic Diameter LX 3.9 cm 3.0 - 4.0 / 2.7 - 3.8 cm LV Diastolic Volume MOD BP 166.2 cm??? 67 - 155 / 56 - 104 cm??? LV Systolic Volume MOD BP 70.4 cm??? 22 - 58 / 19 - 49 cm??? LV Ejection Fraction MOD BP 57.7 % >= 55 % LV Cardiac Index MOD BP 3421.7 cm???/min???m??? LV Diastolic Volume MOD 4C 178.9 cm??? LV Systolic Volume MOD 4C 61.8 cm??? LV Ejection Fraction MOD 4C 65.4 % LV Cardiac Index MOD 4C 4181.8 cm???/min???m??? LV Diastolic Length 4C 9.3 cm LV Systolic Length 4C 7.1 cm LV Diastolic Volume MOD 2C 150.1 cm??? LV Systolic Volume MOD 2C 71.1 cm??? LV Ejection Fraction MOD 2C 52.6 % LV Cardiac Index MOD 2C 2819.1 cm???/min???m??? LV Diastolic Length 2C 9.6 cm LV Systolic Length 2C 8.5 cm M-MODE Aortic Root Diameter MM 3.8 cm AV Cusp Separation MM 2.6 cm DOPPLER AV Peak Velocity 178.4 cm/s AV Peak Gradient 12.7 mmHg AV Mean Velocity 127.8 cm/s AV Mean Gradient 7.3 mmHg AV Velocity Time Integral 34.8 cm Mitral E Point Velocity 97.8 cm/s Mitral A Point Velocity 106.1 cm/s Mitral E to A Ratio 0.9 MV Deceleration Time 203.2 ms MV E' Velocity 8.0 cm/s Mitral E to MV E' Ratio 12.3 FINDINGS Left Ventricle Left ventricular ejection fraction is estimated at 55-60 %.Normal left ventricular systolic function with no obvious regional wall motion abnormalities. Mildly increased left ventricular wall thickness. Right Ventricle Mild right ventricular dilatation. Unable to estimate the right ventricular systolic pressure. Right Atrium Normal right atrial size. No right atrial thrombus or mass seen. Left Atrium Normal left atrial size. No left atrial thrombus or mass present. Mitral Valve Structurally normal mitral valve. No mitral stenosis, regurgitation or prolapse. Aortic Valve Trileaflet aortic valve. Aortic valve sclerosis. No aortic regurgitation. Tricuspid Valve Structurally normal tricuspid valve. No tricuspid stenosis, regurgitation or prolapse. Pulmonic Valve Structurally normal pulmonic valve. No pulmonic regurgitation. Pericardium No pericardial effusion. Aorta Mild aortic dilatation at the level of the sinuses of valsalva 38 mm CONCLUSIONS 1. Normal left ventricular systolic function 2. No significant valvular abnormalities by Doppler study Previewed by: Dr. Gunner Hernandez MD (Electronically Signed) Final Date: 13 April 2025 12:19
--- NOTE | 2025-04-13 12:26 | CA ---
Dobutamine Stress Echocardiogram Report Reid Chandler Age: 59 Gender: M : 1965 Exam Date: 04/13/2025 10:07 Exam Location: [facility] Ordering Physician: Ami Gasca Referring Physician: Campos LATIF Image Assembler: YVETTE PITTS Technologist: Ht (in): 70 Wt (lb): 289 Procedure CPT: Indication: Chest Pain ICD-9 Codes: Rhythm: Patient History: Cardiac Medications: see chart Medications in past 24 hours: Contrast: N/A Total Dose (mL): NA Stress Results Protocol: Dobutamine Peak Dose (???g/kg/min): 30 Duration (min:sec): Atropine:(mg) None Target HR: 135 Double Product: [id number] Resting HR: 80 Resting BP: 132 / 75 Peak HR: 160 Peak BP: 149 / 73 Max Predicted HR: 159 101 % Max Predicted HR Stress Summary: BP Response: Reason for Termination: Target HR Cardiac Symptoms: CHEST PAIN ECG Analysis Resting EKG: Normal sinus rhythm, normal ECG Stress EKG: No abnormal ST/T wave changes with exercise Arrhythmia: Occasional PVCs, occasional APCs Echo Analysis Base Echo Analysis: Normal resting echocardiogram. Low Echo Anaylsis: Normal wall thickening and motion Peak Echo Analysis: Normal wall motion augmentation with decrease in the cavity size Recovery Echo: Normal systolic function MEASUREMENTS (Male/Female) Normal Values CONCLUSIONS 1. Normal electrocardiographic response to dobutamine infusion with occasional PACs and PVCs 2. Normal stress echocardiogram with no evidence of stress- induced ischemia Dr. Gunner Hernandez MD (Electronically Signed) Final Date: 13 April 2025 12:25
[2025-04-13 17:02] VITALS: BP 164/81; PULSE 74; RESP 18; TEMP 97.8
--- NOTE | 2025-04-13 18:48 | P.DS ---
Providers Date of admission: 04/12/25 22:41 Attending physician: Perez Pennington Consults: 04/12/25 22:37 Consult Physician Urgent Consulting Provider: [facility] Consult Reason/Comments: Chest pain Do you want consulting provider notified?: Yes Primary care physician: Perez Pennington [facility] Course: Chief complaint Chest pain starting last night. History of present illness Reid Chandler, a 59-year-old male, was admitted for chest pain that began the previous night. He has a history of morbid obesity, diabetes, multiple myeloma, and chronic pain. During his hospital stay, no elevation of troponin was observed, and cardiology evaluations and tests were conducted, which returned negative results. Past medical history Chief complaint Chest pain starting last night. History of present illness Reid Chandler, a 59-year-old male, was admitted for chest pain that began the previous night. He has a history of morbid obesity, diabetes, multiple myeloma, and chronic pain. During his hospital stay, no elevation of troponin was observed, and cardiology evaluations and tests were conducted, which returned negative results. Past medical history History of morbid obesity, diabetes, and multiple myeloma. Chronic pain. Lab results No elevation of troponin Assessment - Chest pain with no elevation of troponin, negative cardiology evaluation and testing. - Multiple myeloma. - Diabetes. - Chronic pain. Plan - Initiate carvedilol 6.25 mg twice daily as part of the medication regimen. - Adjust Cozaar (losartan) dosage from 50 micrograms to 25 micrograms. - Schedule a follow-up appointment in one week to assess the patient's condition and response to medication adjustments. Prescription - Carvedilol 6.25 mg, BID - Losartan 25 mg, decreased from 50 mg Appointments - Follow-up appointment in 1 week. Visit diagnoses suggestions (8) - Multiple myeloma not having achieved remission [C90.00] - Type 2 diabetes mellitus without complications [E11.9] - Morbid (severe) obesity due to excess calories [E66.01] - Other chronic pain [G89.29] - Chronic pain syndrome [G89.4] - Essential (primary) hypertension [I10] - Chest pain, unspecified [R07.9] - Chronic fatigue, unspecified [R53.82] of morbid obesity, diabetes, and multiple myeloma. Chronic pain. Lab results No elevation of troponin Assessment - Chest pain with no elevation of troponin, negative cardiology evaluation and testing. - Multiple myeloma. - Diabetes. - Chronic pain. Plan - Initiate carvedilol 6.25 mg twice daily as part of the medication regimen. - Adjust Cozaar (losartan) dosage from 50 micrograms to 25 micrograms. - Schedule a follow-up appointment in one week to assess the patient's condition and response to medication adjustments. Prescription - Carvedilol 6.25 mg, BID - Losartan 25 mg, decreased from 50 mg Appointments - Follow-up appointment in 1 week. Visit diagnoses suggestions (8) - Multiple myeloma not having achieved remission [C90.00] - Type 2 diabetes mellitus without complications [E11.9] - Morbid (severe) obesity due to excess calories [E66.01] - Other chronic pain [G89.29] - Chronic pain syndrome [G89.4] - Essential (primary) hypertension [I10] - Chest pain, unspecified [R07.9] - Chronic fatigue, unspecified [R53.82] Patient Condition at Discharge: Stable Plan - Discharge Summary New Discharge Prescriptions: New carvediloL [Coreg] 6.25 mg PO BID-W/MEALS #60 tab Losartan [Cozaar] 25 mg PO DAILY #30 tab Continue PARoxetine HCL [Paxil] 40 mg PO DAILY HYDROcodone/APAP 10-325MG [[place] 10-325] 1 tab PO QID traZODone HCL [Desyrel] 100 mg PO HS ALPRAZolam [Xanax] 0.5 mg PO HS amLODIPine [Norvasc] 10 mg PO DAILY Omeprazole [PriLOSEC] 20 mg PO DAILY Tirzepatide [Mounjaro] 5 mg SQ SA Colchicine [Colcrys] 0.6 mg PO BID #60 each Ibuprofen [Motrin] 800 mg PO TID Empagliflozin/Metformin HCl [Synjardy 5-1,000 mg Tablet] 1 tab PO BID Nebivolol [Bystolic] 5 mg PO DAILY cefuroxime axetiL [Ceftin] 500 mg PO BID #14 tab Magnesium Oxide [Mag-Ox] 400 mg PO TID #90 tab Famotidine [Pepcid] 20 mg PO BID #60 tab Cholestyramine (with Sugar) [Questran Packet] 4 gm PO TID BETWEEN MEALS #21 packet Docusate [Colace] 100 mg PO DAILY PRN #7 capsule PRN Reason: Constipation Discontinued Losartan [Cozaar] 50 mg PO DAILY Discharge Medication List PARoxetine HCL [Paxil] 40 mg PO DAILY 04/29/14 [History] HYDROcodone/APAP 10-325MG [[place] 10-325] 1 tab PO QID 08/24/16 [History] ALPRAZolam [Xanax] 0.5 mg PO HS 08/15/24 [History] Ibuprofen [Motrin] 800 mg PO TID 08/15/24 [History] traZODone HCL [Desyrel] 100 mg PO HS 08/15/24 [History] Empagliflozin/Metformin HCl [Synjardy 5-1,000 mg Tablet] 1 tab PO BID 02/07/25 [History] Nebivolol [Bystolic] 5 mg PO DAILY 02/07/25 [History] amLODIPine [Norvasc] 10 mg PO DAILY 02/07/25 [History] Omeprazole [PriLOSEC] 20 mg PO DAILY 03/23/25 [History] Tirzepatide [Mounjaro] 5 mg SQ SA 03/31/25 [History] Cholestyramine (with Sugar) [Questran Packet] 4 gm PO TID BETWEEN MEALS #21 packet 04/07/25 [Rx] Colchicine [Colcrys] 0.6 mg PO BID #60 each 04/07/25 [Rx] Docusate [Colace] 100 mg PO DAILY PRN #7 capsule 04/07/25 [Rx] Famotidine [Pepcid] 20 mg PO BID #60 tab 04/07/25 [Rx] Magnesium Oxide [Mag-Ox] 400 mg PO TID #90 tab 04/07/25 [Rx] cefuroxime axetiL [Ceftin] 500 mg PO BID #14 tab 04/07/25 [Rx] Losartan [Cozaar] 25 mg PO DAILY #30 tab 04/13/25 [Rx] carvediloL [Coreg] 6.25 mg PO BID-W/MEALS #60 tab 04/13/25 [Rx] Follow up Appointment(s)/Referral(s): Perez Pennington MD [Primary Care Provider] - 1 Week Discharge Disposition: HOME SELF-CARE
[2025-04-13] MEDS ORDERED: traZODone HCL 100 MG TAB PO SCH (21:00)
[2025-04-13] MEDS ORDERED: ALPRAZolam 0.5 MG TAB PO SCH (21:00)
[2025-04-15] MEDS ORDERED: NON FORMULARY DRUG (Tirzepatide [Mounjaro] 5 MG/0.5 ML Pen.Injctr) SQ SCH (09:00)
== END 2025-04-13 20:21 | disposition home or self-care (01) ==
LOC: EC 19:03 → 6NMEDSUR 22:41
PROVIDERS: ADMIT Family Medicine; ATTEND Family Medicine
DX: R07.2 Precordial pain (principal); C90.00 Multiple myeloma not having achieved remission; I42.0 Dilated cardiomyopathy; I10 Essential (primary) hypertension; I25.10 Atherosclerotic heart disease of native coronary artery without angina pectoris; E11.9 Type 2 diabetes mellitus without complications; G89.4 Chronic pain syndrome; J44.9 Chronic obstructive pulmonary disease, unspecified; R53.82 Chronic fatigue, unspecified; M54.2 Cervicalgia; R00.0 Tachycardia, unspecified; E78.5 Hyperlipidemia, unspecified; M15.9 Polyosteoarthritis, unspecified; I44.0 Atrioventricular block, first degree; F32.A Depression, unspecified; E66.01 Morbid (severe) obesity due to excess calories; Z68.41 Body mass index [BMI] 40.0-44.9, adult; I25.2 Old myocardial infarction; Z79.891 Long term (current) use of opiate analgesic; Z79.1 Long term (current) use of non-steroidal anti-inflammatories (NSAID); Z79.85 Long-term (current) use of injectable non-insulin antidiabetic drugs; Z79.84 Long term (current) use of oral hypoglycemic drugs; Z79.899 Other long term (current) drug therapy; Z88.6 Allergy status to analgesic agent; Z88.8 Allergy status to other drugs, medicaments and biological substances; Z90.49 Acquired absence of other specified parts of digestive tract; Z98.84 Bariatric surgery status; Z87.891 Personal history of nicotine dependence; Z92.21 Personal history of antineoplastic chemotherapy; Z94.84 Stem cells transplant status; Z86.73 Personal history of transient ischemic attack (TIA), and cerebral infarction without residual deficits
CPT/HCPCS: 96361 ×2; 96365; 96366; 99285; 36415; 93005; 93306; 93351; 85379; 80053; 83735; 84484 ×2; 85025; 85610; 85730; 71046; G0378 ×2; J1250; J3475

== ENCOUNTER 2025-05-15 17:41 | Observation (INO) | payer MEDICARE ==
[2025-05-15] MEDS: SODIUM CHLORIDE 0.9% 1,000 ML IV STA (18:16)
--- NOTE | 2025-05-15 18:43 | ED ---
General Adult HPI - General Chief complaint: Syncope Stated complaint: Syncope Time Seen by Provider: 05/15/25 17:44 Source: patient Mode of arrival: EMS Limitations: no limitations - History of Present Illness Initial comments: Patient is a 59-year-old gentleman past medical history of CAD, presenting today for syncopal episode. Patient states he has been under increased stress recently and is currently moving. He was at the office of the facility he was moving to when he began to feel sweaty, he leaned over and lost consciousness. Patient believes he did hit his head however primary paramedics report he did not. Patient currently ports a headache. He endorsed associate diaphoresis. Endorses intermittent sharp mild left-sided chest pain. Endorses shortness of breath. Denies focal numbness or weakness feels like his hands are tingling. This has happened before. History of multiple myeloma. No history of prior PE/DVT. Denies strokelike syndrome symptoms. Denies fevers, chills nausea, vomiting. Denies history of seizures, tongue biting or urinary incontinence. States he has chronic diarrhea since being placed on Mounjaro. - Related Data Home Medications Medication Instructions Recorded Confirmed PARoxetine HCL [Paxil] 40 mg PO DAILY 04/29/14 04/13/25 HYDROcodone/APAP 10-325MG [[place] 1 tab PO QID 08/24/16 04/13/25 10-325] ALPRAZolam [Xanax] 0.5 mg PO HS 08/15/24 04/13/25 Ibuprofen [Motrin] 800 mg PO TID 08/15/24 04/13/25 traZODone HCL [Desyrel] 100 mg PO HS 08/15/24 04/13/25 Empagliflozin/Metformin HCl 1 tab PO BID 02/07/25 04/13/25 [Synjardy 5-1,000 mg Tablet] Nebivolol [Bystolic] 5 mg PO DAILY 02/07/25 04/13/25 amLODIPine [Norvasc] 10 mg PO DAILY 02/07/25 04/13/25 Omeprazole [PriLOSEC] 20 mg PO DAILY 03/23/25 04/13/25 Tirzepatide [Mounjaro] 5 mg SQ SA 03/31/25 04/13/25 Previous Rx's Medication Instructions Recorded Cholestyramine Resin [Questran 4 gm PO TID BETWEEN MEALS #21 04/07/25 Packet] packet Colchicine [Colcrys] 0.6 mg PO BID #60 each 04/07/25 Docusate [Colace] 100 mg PO DAILY PRN #7 capsule 04/07/25 Famotidine [Pepcid] 20 mg PO BID #60 tab 04/07/25 Magnesium Oxide [Mag-Ox] 400 mg PO TID #90 tab 04/07/25 cefuroxime axetiL [Ceftin] 500 mg PO BID #14 tab 04/07/25 Losartan [Cozaar] 25 mg PO DAILY #30 tab 04/13/25 carvediloL [Coreg] 6.25 mg PO BID-W/MEALS #60 tab 04/13/25 Allergies Allergy/AdvReac Type Severity Reaction Status Date / Time lisinopril Allergy Rash/Hives Verified 05/15/25 17:56 hydromorphone HCl AdvReac Hallucinati Verified 05/15/25 17:56 [From Dilaudid] ons meperidine HCl [From Demerol] AdvReac Hallucinati Verified 05/15/25 17:56 ons Review of Systems ROS Statement: Those systems with pertinent positive or pertinent negative responses have been documented in the HPI. ROS Other: All systems not noted in ROS Statement are negative. Past Medical History Past Medical History: Cancer, Chest Pain / Angina, COPD, CVA/TIA, Diabetes Mellitus, GERD/Reflux, Hearing Disorder / Deafness, Hypertension, Myocardial Infarction (OR), Osteoarthritis (OA) Additional Past Medical History / Comment(s): Pt reports diarrhea r/t mounjaro shot & loss of appetite. hx gout, chronic back, hip, & knee pain. multiple [id number] cell transplant. [id number] walk-resolved. SOB with activity. wears hearing aids. Last Myocardial Infarction Date:: 02/04/21 History of Any Multi-Drug Resistant Organisms: None Reported Past Surgical History: Bariatric Surgery, Cholecystectomy, Heart Catheterization, Joint Replacement, Orthopedic Surgery Additional Past Surgical History / Comment(s): thymus gland removal, HIP LT SURGERY replacement., lap band by boutt Past Anesthesia/Blood Transfusion Reactions: No Reported Reaction Past Psychological History: Depression Smoking Status: Former smoker Past Alcohol Use History: None Reported Past Drug Use History: None Reported - Past Family History Brother(s) Family Medical History: Coronary Artery Disease (CAD) Additional Family Medical History / Comment(s): pt states brother had hx blood clot- unsure DVT or PE. General Exam - General Exam Comments Initial Comments: PE: CONSTITUTIONAL: No apparent distress, somewhat ill-appearing, generalized pallor SKIN: Warm, dry, no jaundice, hives or petechiae EYES: Pupils are equally round, extraocular movements intact without nystagmus, clear conjunctiva, non-icteric sclera HENT: Normocephalic, atraumatic, moist mucus membranes, oropharynx clear without exudates NECK: , Full range of motion, normal appearance, no midline spinal tenderness palpation PULMONARY: Clear to auscultation without wheezes, rhonchi, or rales, normal excursion, no accessory muscle use and no stridor CARDIOVASCULAR: Regular rate, rhythm, normal S1 and S2. No appreciated murmurs, rubs or gallops. Strong radial pulses with intact distal perfusion. No lower extremity edema GASTROINTESTINAL: Soft, active bowel sounds throughout,mild mid abdominal TTP, otherwise benign abdominal exam, non-distended, no palpable masses, no rebound or guarding. No hepatosplenomegaly GENITOURINARY: MUSCULOSKELETAL: Extremities have no gross deformity, no edema, redness, or swelling. No calf swelling NEUROLOGIC:_a/o x 3, GCS 15, normal mentation and speech. Moves all extremities x 4 without motor or sensory deficit PSYCHIATRIC:_normal mood and affect, thought process is clear and linear Limitations: no limitations Course Vital Signs 05/15/25 05/15/25 05/16/25 17:45 17:59 00:07 Temperature 98.4 F Pulse Rate 82 77 76 Respiratory 18 12 17 Rate Blood Pressure 127/76 126/76 158/102 O2 Sat by Pulse 100 100 96 Oximetry EKG Findings - EKG Comments: EKG Findings:: Sinus rhythm, rate 77 bpm, intervals in acceptable limits, no significant ST elevations, no significant ST depression, slight artifact, no arrhythmia Medical Decision Making - Medical Decision Making Was pt. sent in by a medical professional or institution (, PA, SHOP WORKER, urgent care, hospital, or prison...) When possible be specific @ -No Did you speak to anyone other than the patient for history (EMS, parent, family, police, friend...)? What history was obtained from this source @ -No Did you review nursing and triage notes (agree or disagree)? Why? @ -I reviewed nursing and triage notes Were old charts reviewed (outside hosp., previous admission, EMS record, old EKG, old radiological studies, urgent care reports/EKG's, prison records)? Report findings @ -Medical records reviewed-Reviewed stress test from 04/13/2025, showed normal response to dobutamine infusion with occasional PACs and PVCs, normal stress echo Differential Diagnosis (chest pain, altered mental status, abdominal pain women, abdominal pain men, vaginal bleeding, weakness, fever, dyspnea, syncope, headache, dizziness, GI bleed, back pain, seizure, CVA, palpatations, mental health, musculoskeletal)? Differential Syncope: Valvular disease, hypertrophic cardiomyopathy, pulmonary embolism, tamponade, tachycardia, bradycardia, OR, hypovolemia, hemorrhage, dissection, anemia, intra cranial hemorrhage, seizure, hypoglycemia, this is not meant to be an all- inclusive list. EKG interpreted by me (3pts min.). @ -As above X-rays interpreted by me (1pt min.). @ -None done CT interpreted by me (1pt min.). @ -Personally reviewed CT PE study- I see no evidence of PE, reviewed CT brain, no evidence of hemorrhage, agree with rad. interpretation U/S interpreted by me (1pt. min.). @ -None done What testing was considered but not performed or refused? (CT, X-rays, U/S, labs)? Why? @ -None What meds were considered but not given or refused? Why? @ -None Did you discuss the management of the patient with other professionals (professionals i.e. , PA, SHOP WORKER, lab, RT, psych nurse, social services assistant, poultry picking machine tender, teacher, enforcement safety officer, wrapper caser)? Give summary @ -No Was smoking cessation discussed for >3mins.? @ -No Was critical care preformed (if so, how long)? @ -No Were there social determinants of health that impacted care today? How? (Homelessness, low income, unemployed, alcoholism, drug addiction, transportation, low edu. Level, literacy, decrease access to med. care, usp, re hab)? @ -No Was there de-escalation of care discussed even if they declined (Discuss DNR or withdrawal of care, Hospice)? @ -No What co-morbidities impacted this encounter? (DM, HTN, Smoking, COPD, CAD, Cancer, CVA, ARF, Chemo, Hep., AIDS, mental health diagnosis, sleep apnea, morbid obesity)? @ -None Was patient admitted / discharged? Hospital course, mention meds given and route, prescriptions, significant lab abnormalities, going to OR and other pertinent info. @ -Admission- patient is a 59-year-old gentleman past ministry of CAD, presenting today for syncopal episode. Vital signs stable on arrival. Physical exam significant for generalized pallor. Pt notes mid abdominal TTP, but abdomen otherwise soft, nontender, without guarding or palpable masses. EKG shows no STEMI or arrhythmia. Plan for D-dimer, troponin, CBC, CMP, magnesium level PT PTT administering IV fluids. Patient will receive aspirin and home [place]. Discussed with him anticipated admission to which he was agreeable. Hemoglobin 10.2, appears to be baseline for the patient, D-dimer 1.89, CT PE study was ordered and negative for PE. Otherwise labs overall reassuring. Due to patient's cardiac history, chest pain and syncopal episode he will be admitted for observation. Case was discussed with admitting physician, Dr. Pennington who is the patient's primary care provider. States that he did see the patient earlier in the day, has been having some short-term memory issues. Request CT brain be performed. CT brain ordered, reviewed by myself and showed no acute process. Read by radiologist as no acute process. Patient admitted in stable condition. Undiagnosed new problem with uncertain prognosis? @ -No Drug Therapy requiring intensive monitoring for toxicity (Heparin, Nitro, Insulin, Cardizem)? @ -No Were any procedures done? @ -No Diagnosis/symptom? @Syncope, chest pain Acute, or Chronic, or Acute on Chronic? @ -Acute Uncomplicated (without systemic symptoms) or Complicated (systemic symptoms)? @ -Complicated Side effects of treatment? @ -No Exacerbation, Progression, or Severe Exacerbation? @ -No Poses a threat to life or bodily function? How? (Chest pain, USA, OR, pneumonia, PE, COPD, DKA, ARF, appy, cholecystitis, CVA, Diverticulitis, Homicidal, Suicidal, threat to staff... and all critical care pts) @ -Potentially - Lab Data Result diagrams: 05/15/25 18:46 05/15/25 18:46 Lab Results 05/15/25 05/15/25 05/15/25 Range/Units 18:46 18:46 18:46 WBC 7.59 (4.50-10.00) 10*3/uL RBC 3.69 L (4.40-5.60) 10*6/uL Hgb 10.2 L (13.0-17.0) g/dL Hct 30.9 L (39.6-50.0) % MCV 83.7 (80.0-97.0) fL MCH 27.6 (27.0-32.0) pg MCHC 33.0 (32.0-37.0) g/dL Plt Count 123 L (140-440) 10*3/uL MPV 10.9 (9.5-12.2) fL Immature Gran % (Auto) 0.4 % Neutrophils % 67.0 % Lymphocytes % 24.1 % Monocytes % 4.7 % Eosinophils % 3.3 % Basophils % 0.5 % Immature Gran # 0.03 (0.00-0.04) 10*3/uL Neutrophils # 5.08 (1.80-7.70) 10*3/uL Lymphocytes # 1.83 (0.90-5.00) 10*3/uL Monocytes # 0.36 (0.20-1.00) 10*3/uL Eosinophils # 0.25 (0.04-0.35) 10*3/uL Basophils # 0.04 (0.00-0.10) 10*3/uL PT 11.3 (10.0-12.5) sec INR 1.0 (<1.2) APTT 24.5 (22.0-30.0) sec D-Dimer 1.89 H (<0.60) mg/L FEU Sodium 136 L (137-145) mmol/L Potassium 4.1 (3.5-5.1) mmol/L Chloride 103 (98-107) mmol/L Carbon Dioxide 20 L (22-30) mmol/L Anion Gap 13 mmol/L BUN 11 (9-20) mg/dL Creatinine 1.01 (0.66-1.25) mg/dL Est GFR (CKD-EPI)AfAm >90 (>60 ml/min/1.73 sqM) Est GFR (CKD-EPI)NonAf 80 (>60 ml/min/1.73 sqM) Glucose 85 (74-99) mg/dL POC Glucose (mg/dL) (70-110) mg/dL POC Glu Lot Technician ID Calcium 8.9 (8.4-10.2) mg/dL Magnesium 1.7 (1.6-2.3) mg/dL Total Bilirubin 0.6 (0.2-1.3) mg/dL AST 18 (17-59) U/L ALT 13 (4-49) U/L Alkaline Phosphatase 88 (38-126) U/L Troponin I (0.000-0.034) ng/mL Total Protein 6.1 L (6.3-8.2) g/dL Albumin 3.6 (3.5-5.0) g/dL 05/15/25 05/15/25 Range/Units 18:46 19:05 WBC (4.50-10.00) 10*3/uL RBC (4.40-5.60) 10*6/uL Hgb (13.0-17.0) g/dL Hct (39.6-50.0) % MCV (80.0-97.0) fL MCH (27.0-32.0) pg MCHC (32.0-37.0) g/dL Plt Count (140-440) 10*3/uL MPV (9.5-12.2) fL Immature Gran % (Auto) % Neutrophils % % Lymphocytes % % Monocytes % % Eosinophils % % Basophils % % Immature Gran # (0.00-0.04) 10*3/uL Neutrophils # (1.80-7.70) 10*3/uL Lymphocytes # (0.90-5.00) 10*3/uL Monocytes # (0.20-1.00) 10*3/uL Eosinophils # (0.04-0.35) 10*3/uL Basophils # (0.00-0.10) 10*3/uL PT (10.0-12.5) sec INR (<1.2) APTT (22.0-30.0) sec D-Dimer (<0.60) mg/L FEU Sodium (137-145) mmol/L Potassium (3.5-5.1) mmol/L Chloride (98-107) mmol/L Carbon Dioxide (22-30) mmol/L Anion Gap mmol/L BUN (9-20) mg/dL Creatinine (0.66-1.25) mg/dL Est GFR (CKD-EPI)AfAm (>60 ml/min/1.73 sqM) Est GFR (CKD-EPI)NonAf (>60 ml/min/1.73 sqM) Glucose (74-99) mg/dL POC Glucose (mg/dL) 81 (70-110) mg/dL POC Glu Lot Technician ID [facility] Calcium (8.4-10.2) mg/dL Magnesium (1.6-2.3) mg/dL Total Bilirubin (0.2-1.3) mg/dL AST (17-59) U/L ALT (4-49) U/L Alkaline Phosphatase (38-126) U/L Troponin I <0.012 (0.000-0.034) ng/mL Total Protein (6.3-8.2) g/dL Albumin (3.5-5.0) g/dL Disposition Clinical Impression: Syncope, Intermittent chest pain Disposition: ADMITTED IP TO THIS HOSP Condition: Stable
[2025-05-15] MEDS: HYDROcodone/APAP 5-325MG 1 EACH TAB PO STA (18:55)
[2025-05-15] MEDS: ASPIRIN 81 MG PO STA (18:56)
[2025-05-15 18:59] LABS: Basophils # (A) 0.04 10*3/uL (0.00-0.10); Basophils % (A) 0.5 %; Eosinophils # (A) 0.25 10*3/uL (0.04-0.35); Eosinophils % (A) 3.3 %; HCT 30.9 % (39.6-50.0); HGB 10.2 g/dL (13.0-17.0); Lymphocytes # (A) 1.83 10*3/uL (0.90-5.00); Lymphocytes % (A) 24.1 %; MCH 27.6 pg (27.0-32.0); MCHC 33.0 g/dL (32.0-37.0); MCV 83.7 fL (80.0-97.0); Monocytes # (A) 0.36 10*3/uL (0.20-1.00); Monocytes % (A) 4.7 %; Neutrophils # (A) 5.08 10*3/uL (1.80-7.70); Neutrophils % (A) 67.0 %; Platelet Count 123 10*3/uL (140-440); RBC 3.69 10*6/uL (4.40-5.60); RDW 14.9 % (11.5-14.5); WBC 7.59 10*3/uL (4.50-10.00)
[2025-05-15 19:05] LABS: ALT 13 U/L (4-49); AST 18 U/L (17-59); African American GFR (CKD) >90 (>60 ml/min/1.73 sqM); Albumin 3.6 g/dL (3.5-5.0); Alkaline Phosphatase 88 U/L (38-126); Anion Gap 13 mmol/L; Blood Urea Nitrogen 11 mg/dL (9-20); Calcium 8.9 mg/dL (8.4-10.2); Carbon Dioxide 20 mmol/L (22-30); Chloride 103 mmol/L (98-107); Glucose 85 mg/dL (74-99); Magnesium 1.7 mg/dL (1.6-2.3); Non-African American GFR(CKD) 80 (>60 ml/min/1.73 sqM); Potassium 4.1 mmol/L (3.5-5.1); Sodium 136 mmol/L (137-145); Total Protein 6.1 g/dL (6.3-8.2)
[2025-05-15 19:07] LABS: INR 1.0 (<1.2); Partial Thromboplastin Time 24.5 sec (22.0-30.0); Prothrombin Time 11.3 sec (10.0-12.5)
[2025-05-15 19:16] LABS: Glucose,Whole Blood 81 mg/dL (70-110)
--- NOTE | 2025-05-15 21:38 | CT ---
EXAMINATION TYPE: CT chest angio for PE DATE OF EXAM: 05/15/2025 9:18 PM COMPARISON: Chest radiograph from same day. Multiple CTs of the chest with most recent on 04/01/2025 CLINICAL INDICATION: Male, 59 years old with history of Shortness of breath; SOB TECHNIQUE/CONTRAST: CTA scan of the thorax is performed with IV Contrast, patient injected with 100ml mL of Isovue 370, M IP images are created and reviewed these are created on a separate workstation.. CT DLP: 713.6 mGycm, Automated exposure control for dose reduction was used. FINDINGS: Lungs/Pleura: No evidence of focal consolidation, pleural effusion or pneumothorax. No clinically sig nificant pulmonary nodules. Stable right middle lobe subcentimeter peripheral pulmonary nodules. No f ollow-up recommended. Airway: Large airways are patent. Heart: Cardiomegaly is demonstrated. Mild coronary artery calcifications present. Vasculature: There is no evidence for a filling defect within the pulmonary vasculature to suggest ac eleazar pulmonary embolism. The pulmonary artery is of normal size. Mediastinum: No gross evidence of adenopathy. Musculoskeletal: No acute osseous abnormalities bridging syndesmophytes are seen throughout the lower thoracic spine. Sternotomy changes are present. Soft Tissues/lymph nodes: Unremarkable. Lower neck: No significant findings. Upper Abdomen: Diffuse low-attenuation to the liver parenchyma. Surgical clips at the gastroesophagea l junction. IMPRESSION: 1. No evidence of pulmonary embolism. 2. Hepatic steatosis. 3. Mild cardiomegaly. Follow up recommendations for incidental pulmonary nodules, if there are any, are per [employer] or [place] [employer]. https://radiopaedia.org/articles/mrilfqnssz-[email or web address]-[email or web address]?lang=us [facility], , 05/15/2025 9:35 PM
[2025-05-15] MEDS ORDERED: NALOXONE 0.4 MG/ML 1 ML VIAL IV PRN (22:58)
--- NOTE | 2025-05-15 23:50 | CT ---
EXAM: CT Head Without Intravenous Contrast CLINICAL HISTORY: ITS.REASON CT Reason: short term memory loss, syncopal episode TECHNIQUE: Axial computed tomography images of the head/brain without intravenous contrast. CTDI is 49.2 mGy and DLP is 1288.4 mGy-cm. This CT exam was performed using one or more of the following dose reduction techniques: automated exposure control, adjustment of the mA and/or kV according to patient size, and/or use of iterative reconstruction technique. COMPARISON: No relevant prior studies available. FINDINGS: No acute intracranial hemorrhage. No midline shift or mass effect. The territorial petit-white matter differentiation is maintained throughout. The ventricles and sulci are commensurate with age. The visualized orbits appear grossly unremarkable. The calvarium is intact. The visualized paranasal sinuses and mastoid air cells are grossly clear. IMPRESSION: No acute intracranial hemorrhage, midline shift, or mass effect.
[2025-05-16] MEDS ORDERED: ONDANSETRON 4 MG/2 ML VIAL IVP PRN (00:54)
[2025-05-16] MEDS ORDERED: IBUPROFEN 400 MG TAB PO PRN (00:54)
[2025-05-16] MEDS ORDERED: ACETAMINOPHEN TAB 325 MG TAB PO PRN (00:54)
[2025-05-16] MEDS: SODIUM CHLORIDE 0.9% 1,000 ML IV SCH (02:00)
[2025-05-16] MEDS: HYDROcodone/APAP 5-325MG 1 EACH TAB PO PRN (04:44)
[2025-05-16] MEDS ORDERED: DOCUSATE 100 MG CAP PO PRN (08:27)
--- NOTE | 2025-05-16 08:46 | P.HPIM ---
History of Present Illness H&P Date: 05/16/25 This is a 59-year-old male who presented to the emergency department after a syncopal episode. Patient reports he was at the office of the facility he is moving to any began to feel sweaty and reportedly lost consciousness. Patient unsure how long he was unconscious, reports he might have hit his head. Earlier yesterday patient was seen in our office. He has been complaining of some short-term memory loss. He has recently lost 50 pounds over the last 2 months. He does report he has not been eating regularly. Further medical history as noted below. Review of Systems Constitutional: Reports poor appetite, Reports weakness, Denies chills, Denies f ever Cardiovascular: Denies chest pain, Denies dyspnea on exertion Respiratory: Denies cough, Denies dyspnea Gastrointestinal: Reports loss of appetite Musculoskeletal: Denies arm numbness/tingling, Denies leg numbness/tingling Neurological: Reports memory loss, Reports weakness, Denies headaches Past Medical History Past Medical History: Cancer, Chest Pain / Angina, COPD, CVA/TIA, Diabetes Mellitus, GERD/Reflux, Hearing Disorder / Deafness, Hypertension, Myocardial Infarction (HI), Osteoarthritis (OA) Additional Past Medical History / Comment(s): Pt reports diarrhea r/t mounjaro shot & loss of appetite. hx gout, chronic back, hip, & knee pain. multiple dvrmbah-rrfmr-alwd cell transplant. [id number] walk-resolved. SOB with activity. wears hearing aids. Last Myocardial Infarction Date:: 02/04/21 History of Any Multi-Drug Resistant Organisms: None Reported Past Surgical History: Bariatric Surgery, Cholecystectomy, Heart Catheterization, Joint Replacement, Orthopedic Surgery Additional Past Surgical History / Comment(s): thymus gland removal, HIP LT SURGERY replacement., lap band by boutt Past Anesthesia/Blood Transfusion Reactions: No Reported Reaction Past Psychological History: Depression Smoking Status: Former smoker Past Alcohol Use History: None Reported Additional Past Alcohol Use History / Comment(s): started smoking smoking at age [age] years old, 1ppd, quit in 2019 Past Drug Use History: None Reported - Past Family History Brother(s) Family Medical History: Coronary Artery Disease (CAD) Additional Family Medical History / Comment(s): pt states brother had hx blood clot- unsure DVT or PE. Medications and Allergies Home Medications Medication Instructions Recorded Confirmed Type PARoxetine HCL [Paxil] 40 mg PO DAILY 04/29/14 05/16/25 History HYDROcodone/APAP 10-325MG [[place] 1 tab PO QID 08/24/16 05/16/25 History 10-325] ALPRAZolam [Xanax] 0.5 mg PO HS 08/15/24 05/16/25 History Ibuprofen [Motrin] 800 mg PO TID 08/15/24 05/16/25 History traZODone HCL [Desyrel] 100 mg PO HS 08/15/24 05/16/25 History Empagliflozin/Metformin HCl 1 tab PO BID 02/07/25 05/16/25 History [Synjardy 5-1,000 mg Tablet] Nebivolol [Bystolic] 5 mg PO DAILY 02/07/25 05/16/25 History amLODIPine [Norvasc] 10 mg PO DAILY 02/07/25 05/16/25 History Omeprazole [PriLOSEC] 20 mg PO DAILY 03/23/25 05/16/25 History Tirzepatide [Mounjaro] 5 mg SQ SA 03/31/25 05/16/25 History Colchicine [Colcrys] 0.6 mg PO BID #60 each 04/07/25 05/16/25 Rx Docusate [Colace] 100 mg PO DAILY PRN #7 capsule 04/07/25 05/16/25 Rx Famotidine [Pepcid] 20 mg PO BID #60 tab 04/07/25 05/16/25 Rx Magnesium Oxide [Mag-Ox] 400 mg PO TID #90 tab 04/07/25 05/16/25 Rx Losartan [Cozaar] 25 mg PO DAILY #30 tab 04/13/25 05/16/25 Rx carvediloL [Coreg] 6.25 mg PO BID-W/MEALS #60 tab 04/13/25 05/16/25 Rx Allergies Allergy/AdvReac Type Severity Reaction Status Date / Time lisinopril Allergy Rash/Hives Verified 05/16/25 07:56 hydromorphone HCl AdvReac Hallucinati Verified 05/16/25 07:56 [From Dilaudid] ons meperidine HCl [From Demerol] AdvReac Hallucinati Verified 05/16/25 07:56 ons Physical Exam Vitals: Vital Signs Temp Pulse Resp BP Pulse Ox 05/16/25 04:55 86 18 154/81 96 05/16/25 00:07 76 17 158/102 96 05/15/25 17:59 77 12 126/76 100 05/15/25 17:45 98.4 F 82 18 127/76 100 Intake and Output 05/15/25 05/16/25 05/16/25 22:59 06:59 14:59 Other: Weight 126.099 kg 126.099 kg - Constitutional General appearance: cooperative, no acute distress - EENT Eyes: PERRLA - Neck Neck: no lymphadenopathy, normal ROM, no rigidity - Respiratory Respiratory: bilateral: diminished - Cardiovascular Heart sounds: normal: S1, S2 - Gastrointestinal General gastrointestinal: soft, no tenderness - Integumentary Integumentary: normal, normal turgor - Musculoskeletal Musculoskeletal: generalized weakness - Psychiatric Psychiatric: A&O x's 3 Results CBC & Chem 7: 05/15/25 18:46 05/15/25 18:46 Labs: Abnormal Lab Results - Last 24 Hours (Table) 05/15/25 05/15/25 05/15/25 Range/Units 18:46 18:46 18:46 RBC 3.69 L (4.40-5.60) 10*6/uL Hgb 10.2 L (13.0-17.0) g/dL Hct 30.9 L (39.6-50.0) % Plt Count 123 L (140-440) 10*3/uL D-Dimer 1.89 H (<0.60) mg/L FEU Sodium 136 L (137-145) mmol/L Carbon Dioxide 20 L (22-30) mmol/L Total Protein 6.1 L (6.3-8.2) g/dL Thrombosis Risk Factor Assmnt - Choose All That Apply Any of the Below Risk Factors Present?: No Assessment and Plan (1) Intermittent chest pain Current Visit: Yes Status: Acute Code(s): R07.9 - CHEST PAIN, UNSPECIFIED SNOMED Code(s): 92012039 (2) Syncope Current Visit: Yes Status: Acute Code(s): R55 - SYNCOPE AND COLLAPSE SNOMED Code(s): 438559361 (3) Depression Current Visit: No Status: Acute Code(s): F32.A - DEPRESSION, UNSPECIFIED SNOMED Code(s): 13268863 (4) Diabetes Current Visit: No Status: Acute Code(s): E11.9 - TYPE 2 DIABETES MELLITUS WITHOUT COMPLICATIONS SNOMED Code(s): 37151519 (5) History of cholecystectomy Current Visit: No Status: Acute Code(s): Z90.49 - ACQUIRED ABSENCE OF OTHER SPECIFIED PARTS OF DIGESTIVE TRACT SNOMED Code(s): 756254711 (6) Hypertension Current Visit: No Status: Acute Code(s): I10 - ESSENTIAL (PRIMARY) HYPERTENSION SNOMED Code(s): 21143952 (7) Memory loss Current Visit: Yes Status: Acute Code(s): R41.3 - OTHER AMNESIA SNOMED Code(s): 71997547 Plan: Home medications reconciled. Check CBC and CMP in the morning. Order echo and carotid. Appreciate cardiology input. Patient seen and evaluated by nurse practitioner, physician in agreement with plan.
[2025-05-16] MEDS ORDERED: FAMOTIDINE 20 MG TAB PO SCH (09:00)
[2025-05-16] MEDS: HYDROcodone/APAP 10-325MG 1 EACH TAB PO SCH (09:21)
[2025-05-16] MEDS: FAMOTIDINE 20 MG TAB PO SCH (09:21)
[2025-05-16] MEDS: MAGNESIUM OXIDE 400 MG TAB PO SCH (09:22)
[2025-05-16] MEDS: amLODIPine 10 MG TAB PO SCH (09:23)
[2025-05-16] MEDS: ENOXAPARIN 40 MG/0.4 ML SYRINGE SQ SCH (09:23)
[2025-05-16] MEDS: COLCHICINE 0.6 MG EACH PO SCH (09:26)
--- NOTE | 2025-05-16 09:26 | US ---
EXAMINATION TYPE: US carotid duplex BILAT DATE OF EXAM: 05/16/2025 COMPARISON: NONE CLINICAL INDICATION: Male, 59 years old with history of syncope; Diaphoretic with LOC, Hx stroke in , and Mi in 2022. Dizziness and weakness TECHNIQUE: Grayscale, color Doppler and spectral Doppler evaluation of the bilateral carotid systems and vertebral arteries. Indirect Doppler criteria was utilized. FINDINGS: EXAM MEASUREMENTS: RIGHT: Peak Systolic Velocity (PSV) cm/sec ----- Right CCA: 77 ----- Right ICA: 72 ----- Right ECA: 79 ICA/CCA ratio: 0.9 RIGHT: End Diastole cm/sec ----- Right CCA: 10 ----- Right ICA: 20 ----- Right ECA: 6 LEFT: Peak Systolic Velocity (PSV) cm/sec ----- Left CCA: 63 ----- Left ICA: 80 ----- Left ECA: 69 ICA/CCA ratio: 1.3 LEFT: End Diastole cm/sec ----- Left CCA: 13 ----- Left ICA: 22 ----- Left ECA: 4 VERTEBRALS (direction of flow): Right Vertebral: Antegrade Left Vertebral: Antegrade Rhythm: Normal [employer] NOTES: No intimal thickening, plaque, or elevated velocities. Color Doppler imaging shows patency with blood flow throughout the carotid artery. Spectral waveforms are within normal limits. IMPRESSION: No hemodynamically significant internal carotid artery stenosis on either side. Criteria for Assigning % of Stenosis / Diameter reduction (Estimation based on the indirect measurements of the internal carotid artery velocities (ICA PSV). 1. Normal (no stenosis)=ICA PSV < 180 cm/s: ratio < 2.0: ICA EDV<40 cm/s. 2. Less than 50% stenosis=ICA PSV < 180 cm/s: ratio < 2.0: ICA EDV<40 cm/s. 3. 50 to 69% stenosis=ICA PSV of 180 to 230 cm/s: ration 2.0 ? 4.0: ICA EDV 40-100 cm/s. PSV 125-180 cm/sec and ICA/CCA PSV Ratio ? 2.0 is also consistent with 50-69% stenosis 4. Greater than 70% stenosis to near occlusion= ICA PSV > 230 cm/s: ratio > 4.0: ICA EDV > 100 cm/s. 5. Near occlusion= ICA PSV velocities may be low or undetectable: variable ratio and ICA EDV. 6. Total occlusion=unable to detect flow. [facility], Workstation: [facility], 05/16/2025 9:24 AM
[2025-05-16] MEDS: PANTOPRAZOLE 40 MG TABLET PO SCH (09:34)
[2025-05-16] MEDS: IBUPROFEN 800 MG TAB PO SCH (09:35)
[2025-05-16] MEDS: LOSARTAN 25 MG TAB PO SCH (09:35)
[2025-05-16] MEDS: PARoxetine 20 MG TAB PO SCH (09:36)
[2025-05-16] MEDS: DAPAGLIFLOZIN PROPANEDIOL 5 MG TABLET PO SCH (09:36)
[2025-05-16] MEDS: metFORMIN 500 MG TAB PO SCH (09:45)
--- NOTE | 2025-05-16 10:45 | P.CRDCN ---
History of Present Illness History of present illness: HISTORY OF PRESENT ILLNESS: This is a 59-year-old male with a past medical history significant for hypertension, hyperlipidemia, diabetes, normal coronary arteries, and morbid obesity. Patient follows in the office with Dr. Ricks. We have been asked to see the patient in consultation for syncope. Patient examined at the bedside in the emergency room. Patient states he was at his doctor's office yesterday when he began to have significant diaphoresis all over his body. He states that he leaned forward for a minute due to his tailbone hurting and he passed out and ended up on the floor. He does report losing consciousness. He denied having any chest pain or shortness of breath prior to this episode. He denied any nausea. He does state that he has been having some shortness of breath for the past few months which is at his baseline and not any worse than normal. He also reports having some mild left-sided chest pain in the ambulance. He denies any chest pain at the time of examination. The patient does report he has some occasional nausea due to Mounjaro which he is on for weight loss and states he has lost 75 pounds. DIAGNOSTICS: - EKG reveals sinus mechanism with no signs of acute ischemia. - Chest CTA: Negative for pulmonary embolism. Mild cardiomegaly. - Laboratory data: Troponin negative x 3 - Current home cardiac medications include carvedilol 6.25 mg twice a day, amlodipine 10 mg daily, Bystolic 5 mg daily, losartan 25 mg daily. - Most recent echocardiogram obtained in April 2025 revealing ejection fraction 55 to 60% with no significant valvular abnormalities - Cardiac catheterization history: 2020 revealing normal coronary arteries - Patient underwent dobutamine stress test in April 2025 which was negative for ischemia REVIEW OF SYSTEMS: At the time of my exam: CONSTITUTIONAL: Denies fever or chills. HEENT: Denies blurred vision, vision changes, or eye pain. Denies hemoptysis CARDIOVASCULAR: Denies chest pain. Denies orthopnea. Denies PND. Denies palpitations RESPIRATORY: Denies shortness of breath. GASTROINTESTINAL: Denies abdominal pain. Denies nausea or vomiting. HEMATOLOGIC: Denies bleeding disorders. GENITOURINARY: Denies any blood in urine. SKIN: Denies pruitis. Denies rash. PHYSICAL EXAM: VITAL SIGNS: Reviewed. GENERAL: Well-developed in no acute distress. HEENT: Head is normocephalic. Pupils are equal, round. Sclerae anicteric. Mucous membranes of the mouth are moist. Neck supple. No JVD or thyromegaly LUNGS: Respirations even and unlabored. Lungs essentially clear to auscultation bilaterally. HEART: Regular rate and rhythm. S1 and S2 heard. ABDOMEN: Soft. Nondistended. Nontender. EXTREMITIES: Normal range of motion. No clubbing or cyanosis. Peripheral pulses intact. No lower extremity edema NEUROLOGIC: Awake and alert. Oriented x 3. ASSESSMENT: Syncope Hypertension Hyperlipidemia Diabetes Normal coronary arteries, per cardiac catheterization in 2020 Obesity: BMI 39.9 PLAN: No need to repeat echocardiogram as this was performed in April 2025 Obtain orthostatic blood pressures Resume home cardiac medications Continue telemetry monitoring Further recommendations pending patient course Nurse practitioner note has been reviewed by physician. Signing provider agrees with the documented findings, assessment, and plan of care documented by SENIOR SOFTWARE TESTER as a scribe. Past Medical History Past Medical History: Cancer, Chest Pain / Angina, COPD, CVA/TIA, Diabetes Mellitus, GERD/Reflux, Hearing Disorder / Deafness, Hypertension, Myocardial Infarction (SC), Osteoarthritis (OA) Additional Past Medical History / Comment(s): Pt reports diarrhea r/t mounjaro shot & loss of appetite. hx gout, chronic back, hip, & knee pain. multiple wrtsjuo-acusg-btim cell transplant. [id number] walk-resolved. SOB with activity. wears hearing aids. Last Myocardial Infarction Date:: 02/04/21 History of Any Multi-Drug Resistant Organisms: None Reported Past Surgical History: Bariatric Surgery, Cholecystectomy, Heart Catheterization, Joint Replacement, Orthopedic Surgery Additional Past Surgical History / Comment(s): thymus gland removal, HIP LT SURGERY replacement., lap band by romelt Past Anesthesia/Blood Transfusion Reactions: No Reported Reaction Past Psychological History: Depression Smoking Status: Former smoker Past Alcohol Use History: None Reported Past Drug Use History: None Reported - Past Family History Brother(s) Family Medical History: Coronary Artery Disease (CAD) Additional Family Medical History / Comment(s): pt states brother had hx blood clot- unsure DVT or PE. Medications and Allergies Home Medications Medication Instructions Recorded Confirmed Type PARoxetine HCL [Paxil] 40 mg PO DAILY 04/29/14 05/16/25 History HYDROcodone/APAP 10-325MG [[place] 1 tab PO QID 08/24/16 05/16/25 History 10-325] ALPRAZolam [Xanax] 0.5 mg PO HS 08/15/24 05/16/25 History Ibuprofen [Motrin] 800 mg PO TID 08/15/24 05/16/25 History traZODone HCL [Desyrel] 100 mg PO HS 08/15/24 05/16/25 History Empagliflozin/Metformin HCl 1 tab PO BID 02/07/25 05/16/25 History [Synjardy 5-1,000 mg Tablet] Nebivolol [Bystolic] 5 mg PO DAILY 02/07/25 05/16/25 History amLODIPine [Norvasc] 10 mg PO DAILY 02/07/25 05/16/25 History Omeprazole [PriLOSEC] 20 mg PO DAILY 03/23/25 05/16/25 History Tirzepatide [Mounjaro] 5 mg SQ SA 03/31/25 05/16/25 History Colchicine [Colcrys] 0.6 mg PO BID #60 each 04/07/25 05/16/25 Rx Docusate [Colace] 100 mg PO DAILY PRN #7 capsule 04/07/25 05/16/25 Rx Famotidine [Pepcid] 20 mg PO BID #60 tab 04/07/25 05/16/25 Rx Magnesium Oxide [Mag-Ox] 400 mg PO TID #90 tab 04/07/25 05/16/25 Rx Losartan [Cozaar] 25 mg PO DAILY #30 tab 04/13/25 05/16/25 Rx carvediloL [Coreg] 6.25 mg PO BID-W/MEALS #60 tab 04/13/25 05/16/25 Rx Allergies Allergy/AdvReac Type Severity Reaction Status Date / Time lisinopril Allergy Rash/Hives Verified 05/16/25 07:56 hydromorphone HCl AdvReac Hallucinati Verified 05/16/25 07:56 [From Dilaudid] ons meperidine HCl [From Demerol] AdvReac Hallucinati Verified 05/16/25 07:56 ons Physical Exam Vitals: Vital Signs Temp Pulse Resp BP Pulse Ox 05/16/25 04:55 86 18 154/81 96 05/16/25 00:07 76 17 158/102 96 05/15/25 17:59 77 12 126/76 100 05/15/25 17:45 98.4 F 82 18 127/76 100 Intake and Output 05/15/25 05/15/25 05/16/25 14:59 22:59 06:59 Other: Weight 126.099 kg Results 05/15/25 18:46 05/15/25 18:46 Cardiac Enzymes 05/15/25 05/15/25 05/16/25 Range/Units 18:46 18:46 01:13 AST 18 (17-59) U/L Troponin I <0.012 0.014 (0.000-0.034) ng/mL 05/16/25 Range/Units 04:30 AST (17-59) U/L Troponin I 0.013 (0.000-0.034) ng/mL Coagulation 05/15/25 Range/Units 18:46 PT 11.3 (10.0-12.5) sec APTT 24.5 (22.0-30.0) sec CBC 05/15/25 Range/Units 18:46 WBC 7.59 (4.50-10.00) 10*3/uL RBC 3.69 L (4.40-5.60) 10*6/uL Hgb 10.2 L (13.0-17.0) g/dL Hct 30.9 L (39.6-50.0) % Plt Count 123 L (140-440) 10*3/uL Comprehensive Metabolic Panel 05/15/25 Range/Units 18:46 Sodium 136 L (137-145) mmol/L Potassium 4.1 (3.5-5.1) mmol/L Chloride 103 (98-107) mmol/L Carbon Dioxide 20 L (22-30) mmol/L BUN 11 (9-20) mg/dL Creatinine 1.01 (0.66-1.25) mg/dL Glucose 85 (74-99) mg/dL Calcium 8.9 (8.4-10.2) mg/dL AST 18 (17-59) U/L ALT 13 (4-49) U/L Alkaline Phosphatase 88 (38-126) U/L Total Protein 6.1 L (6.3-8.2) g/dL Albumin 3.6 (3.5-5.0) g/dL Current Medications Generic Name Dose Route Start Last Admin Trade Name Freq PRN Reason Stop Dose Admin Acetaminophen 650 mg 05/16/25 00:54 Acetaminophen Tab 325 Mg Tab PO Q6HR PRN Mild Pain or Fever > 100.5 Hydrocodone Bitart/Acetaminophen 1 each 05/16/25 00:54 05/16/25 04:44 Hydrocodone/Apap 5-325mg 1 Each Tab PO 1 each Q6HR PRN Administration Moderate Pain (Scale 4 to 6) Alprazolam 0.25 mg 05/16/25 00:54 Alprazolam 0.25 Mg Tab PO Q6HR PRN Anxiety Enoxaparin Sodium 40 mg 05/16/25 09:00 Enoxaparin 40 Mg/0.4 Ml Syringe SQ DAILY UBALDO Famotidine 20 mg 05/16/25 09:00 Famotidine 20 Mg Tab PO BID UBALDO Sodium Chloride 1,000 mls @ 75 mls/hr 05/16/25 01:00 05/16/25 02:00 Saline 0.9% IV 75 mls/hr .[id number] UBALDO Administration Ibuprofen 400 mg 05/16/25 00:54 Ibuprofen 400 Mg Tab PO Q6HR PRN Mild Pain or Fever > 100.5 Naloxone HCl 0.2 mg 05/15/25 22:58 Naloxone 0.4 Mg/Ml 1 Ml Vial IV Q2M PRN Opioid Reversal Ondansetron HCl 4 mg 05/16/25 00:54 Ondansetron 4 Mg/2 Ml Vial IVP Q8HR PRN Nausea And Vomiting Intake and Output 05/15/25 05/15/25 05/16/25 14:59 22:59 06:59 Other: Weight 126.099 kg Patient Weight 05/16/25 06:59 Weight 126.099 kg 05/15/25 18:46 05/15/25 18:46
[2025-05-16 11:34] VITALS: BMI 39.9
[2025-05-16] MEDS: ALPRAZolam 0.25 MG TAB PO PRN (13:09)
[2025-05-16 17:44] VITALS: RESP 17
[2025-05-16] MEDS: ALPRAZolam 0.5 MG TAB PO SCH (20:29)
[2025-05-17 03:01] VITALS: PULSE 71
[2025-05-17 07:29] LABS: HCT 31.2 % (39.6-50.0); HGB 10.0 g/dL (13.0-17.0); MCH 27.2 pg (27.0-32.0); MCHC 32.1 g/dL (32.0-37.0); MCV 85.0 fL (80.0-97.0); Platelet Count 124 10*3/uL (140-440); RBC 3.67 10*6/uL (4.40-5.60); RDW 15.1 % (11.5-14.5); WBC 4.57 10*3/uL (4.50-10.00)
[2025-05-17 07:51] LABS: ALT 11 U/L (4-49); AST 16 U/L (17-59); African American GFR (CKD) >90 (>60 ml/min/1.73 sqM); Albumin 3.4 g/dL (3.5-5.0); Alkaline Phosphatase 78 U/L (38-126); Anion Gap 8 mmol/L; Blood Urea Nitrogen 8 mg/dL (9-20); Calcium 8.9 mg/dL (8.4-10.2); Carbon Dioxide 23 mmol/L (22-30); Chloride 108 mmol/L (98-107); Glucose 85 mg/dL (74-99); Non-African American GFR(CKD) >90 (>60 ml/min/1.73 sqM); Potassium 3.6 mmol/L (3.5-5.1); Sodium 139 mmol/L (137-145); Total Protein 5.8 g/dL (6.3-8.2)
--- NOTE | 2025-05-17 08:10 | P.DS ---
Providers Date of admission: 05/16/25 00:58 Attending physician: Perez Pennington Consults: 05/15/25 22:58 Consult Physician Urgent Consulting Provider: [facility] Consult Reason/Comments: intermittent CP, syncope Do you want consulting provider notified?: Yes, Notify in am Primary care physician: Perez Pennington Hospital Course: This is a discharge summary 59-year-old white male is sent admitted for syncopal episode. He has had elements of cognitive decline and is scheduled to see neurologist as an outpatient. However cardiology was consulted and workup was negative as far as vascular issue. Heart rate was nominal. I do suspect this is related to inappropriate dietary intake due to weight loss related to GLP-1 medication. He is very reluctant to stop the medication but I told him that he puts his health health at risk related to excessive weight loss. He is lost about 50 pounds in about 8 to 10 weeks. Patient Condition at Discharge: Stable Plan - Discharge Summary New Discharge Prescriptions: No Action PARoxetine HCL [Paxil] 40 mg PO DAILY HYDROcodone/APAP 10-325MG [[place] 10-325] 1 tab PO QID traZODone HCL [Desyrel] 100 mg PO HS ALPRAZolam [Xanax] 0.5 mg PO HS amLODIPine [Norvasc] 10 mg PO DAILY Omeprazole [PriLOSEC] 20 mg PO DAILY Tirzepatide [Mounjaro] 5 mg SQ SA Colchicine [Colcrys] 0.6 mg PO BID #60 each carvediloL [Coreg] 6.25 mg PO BID-W/MEALS #60 tab Ibuprofen [Motrin] 800 mg PO TID Empagliflozin/Metformin HCl [Synjardy 5-1,000 mg Tablet] 1 tab PO BID Nebivolol [Bystolic] 5 mg PO DAILY Magnesium Oxide [Mag-Ox] 400 mg PO TID #90 tab Famotidine [Pepcid] 20 mg PO BID #60 tab Docusate [Colace] 100 mg PO DAILY PRN #7 capsule PRN Reason: Constipation Losartan [Cozaar] 25 mg PO DAILY #30 tab Discharge Medication List PARoxetine HCL [Paxil] 40 mg PO DAILY 04/29/14 [History] HYDROcodone/APAP 10-325MG [[place] 10-325] 1 tab PO QID 08/24/16 [History] ALPRAZolam [Xanax] 0.5 mg PO HS 08/15/24 [History] Ibuprofen [Motrin] 800 mg PO TID 08/15/24 [History] traZODone HCL [Desyrel] 100 mg PO HS 08/15/24 [History] Empagliflozin/Metformin HCl [Synjardy 5-1,000 mg Tablet] 1 tab PO BID 02/07/25 [History] Nebivolol [Bystolic] 5 mg PO DAILY 02/07/25 [History] amLODIPine [Norvasc] 10 mg PO DAILY 02/07/25 [History] Omeprazole [PriLOSEC] 20 mg PO DAILY 03/23/25 [History] Tirzepatide [Mounjaro] 5 mg SQ SA 03/31/25 [History] Colchicine [Colcrys] 0.6 mg PO BID #60 each 04/07/25 [Rx] Docusate [Colace] 100 mg PO DAILY PRN #7 capsule 04/07/25 [Rx] Famotidine [Pepcid] 20 mg PO BID #60 tab 04/07/25 [Rx] Magnesium Oxide [Mag-Ox] 400 mg PO TID #90 tab 04/07/25 [Rx] Losartan [Cozaar] 25 mg PO DAILY #30 tab 04/13/25 [Rx] carvediloL [Coreg] 6.25 mg PO BID-W/MEALS #60 tab 04/13/25 [Rx] Follow up Appointment(s)/Referral(s): Perez Pennington MD [Primary Care Provider] - 1 Week Discharge Disposition: HOME SELF-CARE
[2025-05-17 12:10] VITALS: BP 161/78; TEMP 98
--- NOTE | 2025-05-17 12:44 | P.PN ---
Subjective HISTORY OF PRESENT ILLNESS: This is a 59-year-old male with a past medical history significant for hypertension, hyperlipidemia, diabetes, normal coronary arteries, and morbid obesity. Patient follows in the office with Dr. Ricks. We have been asked to see the patient in consultation for syncope. Patient examined at the bedside in the emergency room. Patient states he was at his doctor's office yesterday when he began to have significant diaphoresis all over his body. He states that he leaned forward for a minute due to his tailbone hurting and he passed out and ended up on the floor. He does report losing consciousness. He denied having any chest pain or shortness of breath prior to this episode. He denied any nausea. He does state that he has been having some shortness of breath for the past few months which is at his baseline and not any worse than normal. He also reports having some mild left-sided chest pain in the ambulance. He denies any chest pain at the time of examination. The patient does report he has some oc casional nausea due to Mounjaro which he is on for weight loss and states he has lost 75 pounds. DIAGNOSTICS: - EKG reveals sinus mechanism with no signs of acute ischemia. - Chest CTA: Negative for pulmonary embolism. Mild cardiomegaly. - Laboratory data: Troponin negative x 3 - Current home cardiac medications include carvedilol 6.25 mg twice a day, amlodipine 10 mg daily, Bystolic 5 mg daily, losartan 25 mg daily. - Most recent echocardiogram obtained in April 2025 revealing ejection fraction 55 to 60% with no significant valvular abnormalities - Cardiac catheterization history: 2020 revealing normal coronary arteries - Patient underwent dobutamine stress test in April 2025 which was negative for ischemia 05/17/2025 Patient examined this morning at bedside. Patient denies any chest pain or pressure. He denies shortness of breath. Vital signs are stable. Orthostatic blood pressures obtained and were unremarkable. PHYSICAL EXAM: VITAL SIGNS: Reviewed. GENERAL: Well-developed in no acute distress. HEENT: Head is normocephalic. Pupils are equal, round. Sclerae anicteric. Mucous membranes of the mouth are moist. Neck supple. No JVD or thyromegaly LUNGS: Respirations even and unlabored. Lungs essentially clear to auscultation bilaterally. HEART: Regular rate and rhythm. S1 and S2 heard. ABDOMEN: Soft. Nondistended. Nontender. EXTREMITIES: Normal range of motion. No clubbing or cyanosis. Peripheral pulses intact. No lower extremity edema NEUROLOGIC: Awake and alert. Oriented x 3. ASSESSMENT: Syncope Hypertension Hyperlipidemia Diabetes Normal coronary arteries, per cardiac catheterization in 2020 Obesity: BMI 39.9 PLAN: No need to repeat echocardiogram as this was performed in April 2025 Continue current cardiac medications Patient may be discharged home today from a cardiac standpoint and follow-up in the office with Dr. Ricks Nurse practitioner note has been reviewed by physician. Signing provider agrees with the documented findings, assessment, and plan of care documented by BUSINESS MACHINES TEACHER as a scribe. Objective - Vital Signs Vital signs: Vital Signs Temp 98.0 F 05/17/25 07:00 Pulse 71 05/17/25 07:00 Resp 17 05/17/25 07:00 BP 161/78 05/17/25 07:00 Pulse Ox 97 05/17/25 07:00 FiO2 Intake & Output 05/16/25 05/17/25 05/17/25 18:59 06:59 18:59 Intake Total 200 Balance 200 Weight 126.099 kg Intake: Oral 200 Other: Voiding Method Toilet # Voids 2 1 # Bowel Movements 1 - Labs CBC & Chem 7: 05/17/25 06:25 05/17/25 06:25 Labs: Abnormal Lab Results - Last 24 Hours (Table) 05/17/25 05/17/25 Range/Units 06:25 06:25 RBC 3.67 L (4.40-5.60) 10*6/uL Hgb 10.0 L (13.0-17.0) g/dL Hct 31.2 L (39.6-50.0) % Plt Count 124 L (140-440) 10*3/uL Chloride 108 H (98-107) mmol/L BUN 8 L (9-20) mg/dL AST 16 L (17-59) U/L Total Protein 5.8 L (6.3-8.2) g/dL Albumin 3.4 L (3.5-5.0) g/dL
[2025-05-20] MEDS ORDERED: NON FORMULARY DRUG (Tirzepatide [Mounjaro] 5 MG/0.5 ML Pen.Injctr) SQ SCH (09:00)
== END 2025-05-17 14:02 | disposition home or self-care (01) ==
LOC: EC 17:41 → 6NMEDSUR 05-16 00:58 → 1SOBS 05-16 05:49
PROVIDERS: ADMIT Family Medicine; ATTEND Family Medicine
DX: R07.89 Other chest pain (principal); R55 Syncope and collapse; F32.A Depression, unspecified; E11.9 Type 2 diabetes mellitus without complications; I10 Essential (primary) hypertension; R41.3 Other amnesia; R63.4 Abnormal weight loss; R51.9 Headache, unspecified; R61 Generalized hyperhidrosis; R11.0 Nausea; I25.10 Atherosclerotic heart disease of native coronary artery without angina pectoris; E78.5 Hyperlipidemia, unspecified; J44.9 Chronic obstructive pulmonary disease, unspecified; K21.9 Gastro-esophageal reflux disease without esophagitis; C90.00 Multiple myeloma not having achieved remission; K52.9 Noninfective gastroenteritis and colitis, unspecified; G89.29 Other chronic pain; M25.569 Pain in unspecified knee; M54.9 Dorsalgia, unspecified; M19.90 Unspecified osteoarthritis, unspecified site; E63.8 Other specified nutritional deficiencies; E66.01 Morbid (severe) obesity due to excess calories; Z68.39 Body mass index [BMI] 39.0-39.9, adult; I25.2 Old myocardial infarction; Z73.3 Stress, not elsewhere classified; Z59.89 Other problems related to housing and economic circumstances; Z79.899 Other long term (current) drug therapy; Z79.85 Long-term (current) use of injectable non-insulin antidiabetic drugs; Z79.891 Long term (current) use of opiate analgesic; Z79.1 Long term (current) use of non-steroidal anti-inflammatories (NSAID); Z88.5 Allergy status to narcotic agent; Z88.8 Allergy status to other drugs, medicaments and biological substances; Z87.891 Personal history of nicotine dependence; Z86.73 Personal history of transient ischemic attack (TIA), and cerebral infarction without residual deficits; Z98.84 Bariatric surgery status; Z90.49 Acquired absence of other specified parts of digestive tract; Z82.49 Family history of ischemic heart disease and other diseases of the circulatory system
CPT/HCPCS: 96372; 96360; 99285; 36415; 93005; 97161; 97165; 85379; 80053 ×2; 83690; 83735; 84484 ×2; 85025; 85027; 85610; 85730; 93880; 70450; 71275; G0378 ×4; J1650; Q9967